=== PATIENT | female | born 1980 | race Caucasian/White ===

== ENCOUNTER 2017-04-01 23:05 | Inpatient (IN) | payer OTHER ==
[2017-04-02] MEDS ORDERED: KETOROLAC TROMETHAMINE 30 MG/1 ML VIAL IVPUSH ONE (00:17)
--- NOTE | 2017-04-02 00:19 | PDOC ---
History of Present Illness <Nancy Rutledge - Last Filed: 04/02/17 06:47> - History of Present Illness Initial Comments: 04/02/17 00:20 The patient is a 36 year old female with past medical history of hypertension who presents to the ED with complaints of nausea, vomiting, and body aches that began yesterday evening. The patient states that she has been unable to hold down any solids or liquids and has thrown up her blood pressure medicines for the past two days. Additionally, she states that her general body aches have prevented her from sleeping all last night and today as well. She reports a subjective fever, productive cough, and reports taking some tylenol for the pain. She denies any diarrhea, SOB, CP, or urinary symptoms. Pt has sick contacts at home, including her mother and daughter. Pt notes that her BP is high today because she was unable to keep her pills down. She takes lasix 20mg, amlodipine 10mg, labetalol 600 mg, spironolactone 50mg, and doxazosin 8mg. Her baseline BP is 170/100 <Edward Gomez - Last Filed: 04/04/17 08:27> - General Chief Complaint: Nausea/Vomiting Stated Complaint: COLD SYMPTOMS Time Seen by Provider: 04/01/17 23:18 Past History <Nancy Rutledge - Last Filed: 04/02/17 06:47> - Suicide/Smoking/Psychosocial Hx Smoking History: Former smoker Have you smoked in the past 12 months: Yes If you are a former smoker, when did you quit?: january Information on smoking cessation initiated: No Hx Alcohol Use: No Drug/Substance Use Hx: No <Edward Gomez - Last Filed: 04/04/17 08:27> - Past Medical History Allergies/Adverse Reactions: Allergies Allergy/AdvReac Type Severity Reaction Status Date / Time No Known Allergies Allergy Verified 04/01/17 23:47 Home Medications: Ambulatory Orders Amlodipine Besylate 10 mg PO DAILY 04/01/17 Furosemide 20 mg PO DAILY 04/01/17 Labetalol HCl [Normodyne -] 600 mg PO BID 04/01/17 Spironolactone 50 mg PO DAILY 04/01/17 Clonidine Patch [Catapres Tts Patch -] 0.3 mg TD WEEKLY 04/02/17 Doxazosin Mesylate 8 mg PO DAILY 04/02/17 Minoxidil [Lonitin -] 2.5 mg PO DAILY 04/02/17 Review of Systems - Review of Systems Comments:: 04/02/17 00:21 "GENERAL/CONSTITUTIONAL: Present: fever No chills. No weakness. HEAD, EYES, EARS, NOSE AND THROAT: No change in vision. No ear pain or discharge. No sore throat. CARDIOVASCULAR: No chest pain or shortness of breath. RESPIRATORY: Present: cough No wheezing, or hemoptysis. GASTROINTESTINAL: Present: Nausea, vomiting No diarrhea or constipation. GENITOURINARY: No dysuria, frequency, or change in urination. MUSCULOSKELETAL: Present: body aches No neck or back pain. SKIN: No rash NEUROLOGIC: No headache, vertigo, loss of consciousness, or change in strength/ sensation. ENDOCRINE: No increased thirst. No abnormal weight change. HEMATOLOGIC/LYMPHATIC: No anemia, easy bleeding, or history of blood clots. ALLERGIC/IMMUNOLOGIC: No hives or skin allergy. " <Edward Gomez - Last Filed: 04/04/17 08:27> *Physical Exam - Vital Signs Last Vital Signs Temp Pulse Resp BP Pulse Ox 99.2 F 76 19 184/116 98 04/01/17 23:44 04/02/17 03:29 04/02/17 03:29 04/02/17 03:29 04/01/17 23:44 <Nancy Rutledge - Last Filed: 04/02/17 06:47> - Vital Signs Last Vital Signs Temp Pulse Resp BP Pulse Ox 99.2 F 76 H 240/150 98 04/01/17 23:44 04/01/17 23:44 04/01/17 23:44 04/01/17 23:44 - Physical Exam Comments: 04/02/17 00:21 "GENERAL: Awake, alert, and fully oriented, in no acute distress HEAD: No signs of trauma EYES: PERRLA, EOMI, sclera anicteric, conjunctiva clear ENT: Auricles normal inspection, hearing grossly normal, nares patent, oropharynx clear without exudates. Moist mucosa NECK: Nontender, no stepoffs, Normal ROM, supple, no lymphadenopathy, JVD, or masses LUNGS: Breath sounds equal, clear to auscultation bilaterally. No wheezes, and no crackles HEART: Regular rate and rhythm, normal S1 and S2, no murmurs, rubs or gallops ABDOMEN: +epigastric and RUQ tenderness, no lower abdominal tenderness, no rebound/guarding EXTREMITIES: Normal range of motion, no edema. No clubbing or cyanosis. No cords, erythema, or tenderness NEUROLOGICAL: Cranial nerves II through XII intact. 5/5 strength and sensation in all extremities, Normal speech, normal gait SKIN: Warm, Dry, normal turgor, no rashes or lesions noted. " <Ou,Edward - Last Filed: 04/04/17 08:27> Heart Score/ECG Review - ECG Impressions Comment:: 04/02/17 01:37 NSR, no JONNATHAN/STDs, TWI in V4-V6, axis wnl, intervals wnl <Ou,Edward - Last Filed: 04/04/17 08:27> ED Treatment Course - LABORATORY CBC & Chemistry Diagram: 04/02/17 00:00 04/02/17 03:00 - ADDITIONAL ORDERS Additional order review: Laboratory Results 04/02/17 04/02/17 04/02/17 03:00 00:12 00:00 PT with INR INR PTT (Actin FS) Sodium 141 Potassium 2.7 L* Chloride 105 Carbon Dioxide 27 Anion Gap 9 BUN 27 H Creatinine 4.1 H Creat Clearance w eGFR 12.18 Random Glucose 100 Calcium 8.6 Total Bilirubin 0.5 AST 21 ALT 30 Alkaline Phosphatase 51 Creatine Kinase Cancelled Troponin I Cancelled B-Natriuretic Peptide Cancelled Total Protein 6.0 L Albumin 3.2 L Lipase 125 Urine Color Urine Appearance Urine pH Ur Specific [place] Urine Protein Urine Glucose (UA) Urine Ketones Urine Blood Urine Nitrite Urine Bilirubin Urine Urobilinogen Urine WBC (Auto) Urine RBC (Auto) Ur Epithelial Cells Urine Bacteria Urine Mucus Urine HCG, Qual Negative 04/02/17 04/02/17 04/02/17 00:00 00:00 00:00 PT with INR Cancelled INR Cancelled PTT (Actin FS) Cancelled Sodium Cancelled Potassium Cancelled Chloride Cancelled Carbon Dioxide Cancelled Anion Gap Cancelled BUN Cancelled Creatinine Cancelled Creat Clearance w eGFR Cancelled Random Glucose Cancelled Calcium Cancelled Total Bilirubin Cancelled AST Cancelled ALT Cancelled Alkaline Phosphatase Cancelled Creatine Kinase Troponin I B-Natriuretic Peptide Total Protein Cancelled Albumin Cancelled Lipase Urine Color Ltyellow Urine Appearance Cloudy Urine pH 5.0 Ur Specific [place] 1.012 Urine Protein 2+ H Urine Glucose (UA) Negative Urine Ketones Negative Urine Blood Negative Urine Nitrite Negative Urine Bilirubin Negative Urine Urobilinogen Negative Urine WBC (Auto) 209 Urine RBC (Auto) 22 Ur Epithelial Cells Many Urine Bacteria Rare Urine Mucus Rare Urine HCG, Qual 04/02/17 03:14 Influenza Types A,B Antigen (EFREN) - Preliminary Nasopharyngeal Swab - Preliminary 04/02/17 00:00 RBC 3.01 L MCV 85.5 MCHC 33.5 RDW 16.3 H MPV 8.9 Neutrophils % 82.8 Lymphocytes % 11.1 Monocytes % 3.1 L Eosinophils % 2.6 Basophils % 0.4 - Medications Given in the ED: ED Medications Discontinued Medications Generic Name Dose Route Start Last Admin Trade Name Freq PRN Reason Stop Dose Admin Acetaminophen 1,000 mg 04/02/17 02:03 04/02/17 02:24 Ofirmev Injection - IVPB 04/02/17 02:04 1,000 mg ONCE ONE Administration Amlodipine Besylate 10 mg 04/02/17 01:33 04/02/17 02:24 Norvasc - PO 04/02/17 01:34 10 mg ONCE ONE Administration Doxazosin Mesylate 8 mg 04/02/17 01:34 04/02/17 03:13 Cardura - PO 04/02/17 01:35 8 mg ONCE ONE Administration Ketorolac Tromethamine 15 mg 04/02/17 00:17 04/02/17 00:31 Toradol Injection - IVPUSH 04/02/17 00:18 15 mg ONCE ONE Administration Labetalol HCl 600 mg 04/02/17 01:33 04/02/17 02:24 Normodyne - PO 04/02/17 01:34 600 mg ONCE ONE Administration Levofloxacin 750 mg 04/02/17 01:55 04/02/17 02:24 Levaquin - PO 04/02/17 01:56 750 mg ONCE ONE Administration Morphine Sulfate 2 mg 04/02/17 02:39 04/02/17 03:13 Morphine Injection - IVPUSH 04/02/17 02:40 2 mg ONCE ONE Administration Nitroglycerin 0.4 mg 04/02/17 02:30 04/02/17 02:30 Nitrostat - SL 04/02/17 02:31 0.4 mg NOW ONE Administration Nitroglycerin 0.4 mg 04/02/17 02:39 04/02/17 02:50 Nitrostat - SL 04/02/17 02:40 0.4 mg ONCE ONE Administration Ondansetron HCl 4 mg 04/02/17 00:24 04/02/17 00:32 Zofran Injection IVPB 04/02/17 00:25 4 mg ONCE ONE Administration <Nancy Rutledge - Last Filed: 04/02/17 06:47> - LABORATORY CBC & Chemistry Diagram: 04/04/17 06:00 04/04/17 06:00 - RADIOLOGY Radiology Studies Ordered: Category Date Time Status CHEST PA & LAT [RAD] Stat Radiology 04/01/17 23:42 Ordered ABDOMEN US -LIMITED [US] Stat Ultrasound 04/01/17 23:43 Ordered <Edward Gomez - Last Filed: 04/04/17 08:27> Medical Decision Making - Critical Care Time Total Critical Care Time (minutes): 60 Critical Care Statement: The care of this patient involved high complexity decision making to prevent further life threatening deterioration of the patient 's condition and/or to evaluate & treat vital organ system(s) failure or risk of failure. - Medical Decision Making 04/02/17 03:52 Pt was signed out to me at 2:30AM Pt arrives with hypertensive emergency; pt earlier received oral antiHTN I treated with SLNTG, then ofirmev for subjective fever. BP cane down to 150s/100s CXR demonstrates large cardiomegaly/waterbottle heart. Pt placed on nasal cannula. EKG sinus tachy with LVH/ lateral strain pattern Pt was given another SLNTG. She was also given morphine for her body aches. BP 166/113 Positive troponin and BNP of 64,000+ ASA and percocet ordered. Heparin drip cancelled after discussion with admitting hospitalist. Nitroprusside drip ordered, in order to control BP more effectively; Pt is renal failure Creatinine 4.1/ Pt tells me her normal creatinine is 2.4; despite this I ordered lasix IV 40mg, in an effort to help reduce preload. Pt is producing urine. ICU nurse practitioner and the hospitalist are aware of the patient 04/02/17 06:[address] result pending, but no pathology seen by myself. 04/02/17 06:10 Pt's BP remains elevated, drip was increased to 24mcg/min. Also potassium runs IV were never given, so I cancelled it, as pt is in renal failure and elevated potassium will be her problem. I did however order 40mEQ PO 04/02/17 06:48 Pt went to ICU <Nancy Rutledge - Last Filed: 04/02/17 06:47> - Medical Decision Making 04/02/17 00:22 36 F with N/V and body aches. Likely viral syndrome. However, given RUQ tenderness and vomiting, will obtain US to r/o darell. Pt found to be hypertensive in ER, likely due to med non-compliance in setting of vomiting. Will r/o hypertensive emergency with labwork and EKG. - Labs, trop, BNP - UA, UPT - EKG - CXR - RUQ sono - Zofran, toradol 04/02/17 01:54 UA consistent with UTI. Labs otherwise still pending. Pt given levaquin. Prescription send to pharmacy. Pt signed out to night attending, pending labwork, abdominal US, CXR, and re- evaluation. Case discussed in detail with oncoming Emergency Physician including history, physical exam and ancillary studies. Oncoming Emergency Physician has assumed care for the patient and will complete the evaluation and treatment. Patient is aware of the plan. <Edward Gomez - Last Filed: 04/04/17 08:27> *DC/Admit/Observation/Transfer - Discharge Dispostion Admit: Yes <Nancy Rutledge - Last Filed: 04/02/17 06:47> <Edward Gomez - Last Filed: 04/04/17 08:27> Diagnosis at time of Disposition: Nausea & vomiting, Hypokalemia, Acute renal failure, Hypertensive cardiomyopathy, Hypertensive emergency, Hypoaldosteronism, Heart failure, Myocardial infarction, Anemia, Headache - Discharge Dispostion Condition at time of disposition: Poor
[2017-04-02 00:23] LABS: URINE APPEARANCE CLOUDY; URINE BILIRUBIN NEGATIVE (NEGATIVE); URINE BLOOD NEGATIVE (NEGATIVE); URINE COLOR LTYELLOW; URINE GLUCOSE (UA) NEGATIVE (NEGATIVE); URINE KETONE NEGATIVE (NEGATIVE); URINE NITRITE NEGATIVE (NEGATIVE); URINE UROBILINOGEN NEGATIVE mg/dL (0.2-1.0)
[2017-04-02 00:24] LABS: BASO % 0.4 % (0-2.0); EOS % 2.6 % (0-4.5); MCH 28.6 pg (25.7-33.7); MCHC 33.5 g/dl (32.0-36.0); MEAN CELL VOLUME 85.5 fl (80-96); MEAN PLT VOLUME 8.9 fl (7.5-11.1); NEUT % 82.8 % (42.8-82.8); PLATELET COUNT 171 K/MM3 (134-434); RDW 16.3 % (11.6-15.6); WHITE BLOOD COUNT 9.8 K/mm3 (4.0-10.0)
[2017-04-02] MEDS ORDERED: ONDANSETRON 4 MG/2 ML VIAL IVPB ONE (00:24)
[2017-04-02 00:25] LABS: URINE LEUK ESTERASE 3+ (NEGATIVE); URINE PROTEIN 2+ (NEGATIVE)
[2017-04-02] MEDS ORDERED: ONDANSETRON 4 MG/2 ML VIAL ONE (00:26)
[2017-04-02] MEDS ORDERED: KETOROLAC TROMETHAMINE 15 MG/ML VIAL ONE (00:26)
[2017-04-02 00:41] LABS: URINE BACTERIA RARE /hpf (NONE SEEN); URINE MUCUS RARE; URINE RBC 22 /hpf (0-3); URINE WBC 209 /hpf (3-5)
[2017-04-02] MEDS ORDERED: amLODIPine BESYLATE 10 MG TABLET (FP) PO ONE (01:33)
[2017-04-02] MEDS ORDERED: LABETALOL HCL 100 MG TABLET (FP) PO ONE (01:33)
[2017-04-02] MEDS ORDERED: DOXAZOSIN MESYLATE 8 MG TABLET PO ONE (01:34)
[2017-04-02] MEDS ORDERED: LEVOFLOXACIN 250 MG TABLET (FP) PO ONE (01:55)
[2017-04-02] MEDS ORDERED: ACETAMINOPHEN 1000 MG/100 ML VIAL (NON FORMULARY) IVPB ONE (02:03)
[2017-04-02] MEDS ORDERED: amLODIPine BESYLATE 5 MG TABLET (FP) ONE (02:09)
[2017-04-02] MEDS ORDERED: LEVOFLOXACIN 250 MG TABLET (FP) ONE (02:09)
[2017-04-02] MEDS ORDERED: LEVOFLOXACIN 500 MG TABLET (FP) ONE (02:09)
[2017-04-02] MEDS ORDERED: ACETAMINOPHEN INJECTION 100 ML IVPB ONE (02:10)
[2017-04-02] MEDS ORDERED: LABETALOL HCL 100 MG TABLET (FP) ONE (02:10)
[2017-04-02] MEDS ORDERED: NITROGLYCERIN SUBLINGUAL 1/150 0.4 MG TAB SL ONE ×2 (02:30→02:39)
[2017-04-02] MEDS ORDERED: morphine CARPU-JECT 2 MG/1 ML DISP.SYRIN IVPUSH ONE (02:39)
[2017-04-02] MEDS ORDERED: morphine SULFATE 4 MG/ML VIAL ONE ×2 (03:03→07:46)
[2017-04-02 03:40] LABS: ALBUMIN 3.2 g/dl (3.4-5.0); ALK PHOS 51 U/L (45-117); ANION GAP 9 (8-16); BILIRUBIN,TOTAL 0.5 mg/dL (0.2-1.0); CALCIUM 8.6 mg/dL (8.5-10.1); CO2 27 mmol/L (21-32); CREATININE 4.1 mg/dL (0.55-1.02); GLUCOSE,RANDOM 100 mg/dL (74-106); SGOT/AST 21 U/L (15-37); SGPT/ALT 30 U/L (12-78)
[2017-04-02] MEDS ORDERED: MAGNESIUM SULF 50% (8.12 MEQ/2 ML-1 GM VIAL) IVPB ONE (03:47)
[2017-04-02] MEDS ORDERED: MAGNESIUM SULF 50% (8.12 MEQ/2 ML-1 GM VIAL) ONE (03:51)
[2017-04-02 03:53] LABS: TROPONIN I 0.29 ng/ml (0.00-0.05)
[2017-04-02] MEDS ORDERED: CLOPIDOGREL BISULFATE 300 MG TABLET PO ONE (04:04)
[2017-04-02] MEDS ORDERED: ASPIRIN 81 MG CHEWABLE TABLETS PO ONE (04:04)
[2017-04-02] MEDS ORDERED: HEPARIN NA (PORCINE) 5,000 UNITS/ML 1ML VIAL IVPUSH PRN (04:05)
[2017-04-02] MEDS ORDERED: ASPIRIN 81 MG CHEWABLE TABLETS ONE ×2 (04:06→04:08)
[2017-04-02] MEDS ORDERED: CLOPIDOGREL BISULFATE 300 MG TABLET ONE (04:07)
[2017-04-02] MEDS ORDERED: HEPARIN INFUSION - 25,000 UNITS/500 ML INFUS.BAG IVPB SCH (04:15)
[2017-04-02] MEDS ORDERED: FUROSEMIDE 40 MG/4 ML INJECTABLE VIAL IVPUSH ONE ×2 (04:15→09:15)
[2017-04-02] MEDS ORDERED: NITROPRUSSIDE SODIUM 25 MG/1 ML ML IVPB ONE (04:31)
[2017-04-02] MEDS ORDERED: FUROSEMIDE 40 MG/4 ML INJECTABLE VIAL ONE (04:35)
[2017-04-02] MEDS: NITROPRUSSIDE SODIUM 50,000 MCG in SODIUM CHLORIDE 248 ML IVPB SCH (05:36)
--- NOTE | 2017-04-02 05:38 | HP ---
CHIEF COMPLAINT: Headache Product Demonstrator: Dr. Fegn HTN Specialist: Dr. 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 Patient describes chest pain as a constant substernal nonradiating pain that feels "cramp." Patient also endorses bilateral blurry vision that also started last week. Patient has been unable to tolerate her BP medications due to her vomiting, which she states brought her BP high. Patient reports her BP is usually stable at 160's/100's. Patient also reports a prodcutve cough with clear phlegm and body aches that started the same time as the headaches. She does admit to being around sick contacts including her mother and daughter. Otherwise, patient denies abdominal pain, dysuria, hematuria, frequency. Patient reports she follows up with an Product Demonstrator who is monitoring her Conn's syndrome. Patient states having full work up done. ER course was notable for: (1) Nitroglycerin given (2) Chest X-ray showing cardiomegaly (3) Elevated trops Recent Travel: Denies PAST MEDICAL HISTORY: HTN (difficult to control), Conn's Syndrome ( hyperaldosteronism) PAST SURGICAL HISTORY: 3 C-sections and partial hysterectomy Social History: Smoking:Former smoker. quit three months ago Alcohol: Denies Drugs: Denies Family History: No family hx Allergies No Known Allergies Allergy (Verified 04/01/17 23:47) HOME MEDICATIONS: Home Medications Medication Instructions Recorded Amlodipine Besylate 10 mg PO DAILY 04/01/17 Furosemide 20 mg PO DAILY 04/01/17 Labetalol HCl [Normodyne -] 600 mg PO DAILY 04/01/17 Spironolactone 50 mg PO DAILY 04/01/17 Clonidine Patch [Catapres Tts 0.3 mg TD ONCE 04/02/17 Patch -] Doxazosin Mesylate 8 mg PO DAILY 04/02/17 Levofloxacin [Levaquin] 750 mg PO DAILY #5 tab 04/02/17 REVIEW OF SYSTEMS CONSTITUTIONAL: Absent: fever, chills, diaphoresis, generalized weakness, malaise, loss of appetite, weight change HEENT: Absent: rhinorrhea, nasal congestion, throat pain, throat swelling, difficulty swallowing, mouth swelling, ear pain, eye pain, visual changes CARDIOVASCULAR: chest pain Absent: syncope, palpitations, irregular heart rate, lightheadedness, peripheral edema RESPIRATORY: Absent: cough, shortness of breath, dyspnea with exertion, orthopnea, wheezing, stridor, hemoptysis GASTROINTESTINAL: Absent: abdominal pain, abdominal distension, nausea, vomiting, diarrhea, constipation, melena, hematochezia GENITOURINARY: Absent: dysuria, frequency, urgency, hesitancy, hematuria, flank pain, genital pain MUSCULOSKELETAL: Absent: myalgia, arthralgia, joint swelling, back pain, neck pain SKIN: Absent: rash, itching, pallor HEMATOLOGIC/IMMUNOLOGIC: Absent: easy bleeding, easy bruising, lymphadenopathy, frequent infections ENDOCRINE: Absent: unexplained weight gain, unexplained weight loss, heat intolerance, cold intolerance NEUROLOGIC: headache, Blurry vision Absent: focal weakness or paresthesias, dizziness, unsteady gait, seizure, mental status changes, bladder or bowel incontinence PSYCHIATRIC: Absent: anxiety, depression, suicidal or homicidal ideation, hallucinations. PHYSICAL EXAMINATION Vital Signs - 24 hr 04/01/17 04/02/17 23:44 03:29 Temperature 99.2 F Pulse Rate [ 76 Left Radial] Respiratory 76 H 19 Rate Blood Pressure 240/150 Blood Pressure 184/116 [Right Arm] O2 Sat by Pulse 98 Oximetry (%) GENERAL: Awake, alert, and fully oriented, in no acute distress. HEAD: Normal with no signs of trauma. EYES: Bilateral edema of the eyes, Pupils equal, round and reactive to light, extraocular movements intact, sclera anicteric, conjunctiva clear. No lid lag. EARS, NOSE, THROAT: Right ear lobe keloid. Oropharynx clear without exudates. Moist mucous membranes. NECK: Normal range of motion, supple without lymphadenopathy, JVD, or masses. LUNGS: Breath sounds equal, clear to auscultation bilaterally. No wheezes, and no crackles. No accessory muscle use. HEART: Regular rate and rhythm, normal S1 and S2 without murmur, rub or gallop. ABDOMEN: Soft, nontender, not distended, normoactive bowel sounds, no guarding, no rebound, no masses. MUSCULOSKELETAL: Normal range of motion at all joints. No bony deformities or tenderness. No CVA tenderness. UPPER EXTREMITIES: 2+ pulses, warm, well-perfused. No cyanosis. No clubbing. No peripheral edema. LOWER EXTREMITIES: 2+ pulses, warm, well-perfused. No calf tenderness. No peripheral edema. NEUROLOGICAL: Cranial nerves II-XII intact. Normal speech. No facial droop. PSYCHIATRIC: Cooperative. Good eye contact. Appropriate mood and affect. SKIN: Warm, dry, normal turgor, no rashes or lesions noted, normal capillary refill. Laboratory Results - last 24 hr 04/02/17 04/02/17 04/02/17 00:00 00:00 00:00 WBC 9.8 RBC 3.01 L Hgb 8.6 L Hct 25.7 L MCV 85.5 MCH 28.6 MCHC 33.5 RDW 16.3 H Plt Count 171 MPV 8.9 Neutrophils % 82.8 Lymphocytes % 11.1 Monocytes % 3.1 L Eosinophils % 2.6 Basophils % 0.4 PT with INR Cancelled INR Cancelled PTT (Actin FS) Cancelled Sodium Potassium Chloride Carbon Dioxide Anion Gap BUN Creatinine Creat Clearance w eGFR Random Glucose Calcium Total Bilirubin AST ALT Alkaline Phosphatase Creatine Kinase Creatine Kinase Index CK-MB (CK-2) Troponin I B-Natriuretic Peptide Total Protein Albumin Lipase Urine Color Ltyellow Urine Appearance Cloudy Urine pH 5.0 Ur Specific [place] 1.012 Urine Protein 2+ H Urine Glucose (UA) Negative Urine Ketones Negative Urine Blood Negative Urine Nitrite Negative Urine Bilirubin Negative Urine Urobilinogen Negative Urine WBC (Auto) 209 Urine RBC (Auto) 22 Ur Epithelial Cells Many Urine Bacteria Rare Urine Mucus Rare Urine HCG, Qual 04/02/17 04/02/17 04/02/17 00:00 00:00 00:12 WBC RBC Hgb Hct MCV MCH MCHC RDW Plt Count MPV Neutrophils % Lymphocytes % Monocytes % Eosinophils % Basophils % PT with INR INR PTT (Actin FS) Sodium Cancelled Potassium Cancelled Chloride Cancelled Carbon Dioxide Cancelled Anion Gap Cancelled BUN Cancelled Creatinine Cancelled Creat Clearance w eGFR Cancelled Random Glucose Cancelled Calcium Cancelled Total Bilirubin Cancelled AST Cancelled ALT Cancelled Alkaline Phosphatase Cancelled Creatine Kinase Cancelled Creatine Kinase Index CK-MB (CK-2) Troponin I Cancelled B-Natriuretic Peptide Cancelled Total Protein Cancelled Albumin Cancelled Lipase Urine Color Urine Appearance Urine pH Ur Specific [place] Urine Protein Urine Glucose (UA) Urine Ketones Urine Blood Urine Nitrite Urine Bilirubin Urine Urobilinogen Urine WBC (Auto) Urine RBC (Auto) Ur Epithelial Cells Urine Bacteria Urine Mucus Urine HCG, Qual Negative 04/02/17 04/02/17 03:00 03:00 WBC RBC Hgb Hct MCV MCH MCHC RDW Plt Count MPV Neutrophils % Lymphocytes % Monocytes % Eosinophils % Basophils % PT with INR INR PTT (Actin FS) Sodium 141 Potassium 2.7 L* Chloride 105 Carbon Dioxide 27 Anion Gap 9 BUN 27 H Creatinine 4.1 H Creat Clearance w eGFR 12.18 Random Glucose 100 Calcium 8.6 Total Bilirubin 0.5 AST 21 ALT 30 Alkaline Phosphatase 51 Creatine Kinase 197 H Creatine Kinase Index 0.6 CK-MB (CK-2) 1.224 Troponin I 0.29 H B-Natriuretic Peptide 68669.06 H Total Protein 6.0 L Albumin 3.2 L Lipase 125 Urine Color Urine Appearance Urine pH Ur Specific [place] Urine Protein Urine Glucose (UA) Urine Ketones Urine Blood Urine Nitrite Urine Bilirubin Urine Urobilinogen Urine WBC (Auto) Urine RBC (Auto) Ur Epithelial Cells Urine Bacteria Urine Mucus Urine HCG, Qual ASSESSMENT/PLAN: Patient is a 36 year old female who presented for a headache, chest pain and neck pain. Patient found to have HTN emergency and admitted for further monitoring and management. HTN Emergency -Has signs of end organ damage with MADISON and elevated troponins -Nitroprusside drip started -Patient given PO anti-htn medications in ED -Head CT ordered to rule out any bleeds -Chest CT to rule out pericardial effusions -ECHO ordered -Continue frequent BP checks -Will need to call security rep for further results. Patient reports extensive work up done MADISON on CKD -Likely secondary to HTN -Patient reports being at 2.0 -Renal ultrasound ordered -Urine electrolytes ordered -Continue to monitor BMP Elevated Troponins -Likely secondary to demand Ischemia -First trop 0.26. Second one ordered -Patient in ED giveb ASA, Plavix. However will need to rule out intracranial hemorrhage -Cardiology consult ordered Conn's Syndrome -Follows up with security rep and has had extensive workup -Reports having adrenal tumors -Continue to monitor BMP -Will need to confirm medications F/E/N -On no fluids -Hypokalemia. Will replete and repeat -Sodium controlled diet Prophylaxis -Moderate risk. Ambulates. Heparin 5000 units sq -No GI required Disposition -Full code -Will need to be monitored in ICU Visit type - Emergency Visit Emergency Visit: Yes ED Registration Date: 04/02/17 Care time: The patient presented to the Emergency Department on the above date and was hospitalized for further evaluation of their emergent condition. - New Patient This patient is new to me today: Yes Date on this admission: 04/02/17 - Critical Care Critical Care patient: Yes Total Critical Care Time (in minutes): 45 Critical Care Statement: The care of this patient involved high complexity decision making to prevent further life threatening deterioration of the patient 's condition and/or to evaluate & treat vital organ system(s) failure or risk of failure.
--- NOTE | 2017-04-02 05:46 | PN ---
Teaching Attending Note Name of Resident: Blossom Bruner ATTENDING PHYSICIAN STATEMENT I saw and evaluated the patient. Chart, data, imaging reviewed. I reviewed the resident's note and discussed the case with the resident. I agree with the resident's findings and plan as documented. SUBJECTIVE: 36 year old female with pmhx of hyperaldosteronism with severe hypertension, CKD with reported adrenal gland tumor comes to ER c/o chest discomfort, nausea, vomiting, headache x 2 day. She follows with hypertensive specialist and channel man in the [employer]. SHe takes multiple medications for hypertension including doxazosin, amlodipine, labetolol, spironolactone. Patient was not able to effectively take her antihypertensive meds because of her vomiting. Patient received PO labetolol, amlodipine, and doxazosin in ER. She denied any focal weakness or sensations problems. OBJECTIVE: Last Vital Signs Temp Pulse Resp BP Pulse Ox 99.2 F 76 19 184/116 98 04/01/17 23:44 04/02/17 03:29 04/02/17 03:29 04/02/17 03:29 04/01/17 23:44 general- nad, aaox3, appears comfortable heent- at, nc, moist oral mucosa neck -supple cv-s1+s2+ RRR CHest- cta b/l abdomen- soft, nontender, BS+, no masses ext -no pedal edema skin- no rashes appreciated Abnormal Lab Results 04/02/17 04/02/17 04/02/17 00:00 00:00 03:00 RBC 3.01 L Hgb 8.6 L Hct 25.7 L RDW 16.3 H Monocytes % 3.1 L Potassium BUN Creatinine Creatine Kinase 197 H Troponin I 0.29 H B-Natriuretic Peptide 63076.06 H Total Protein Albumin Urine Protein 2+ H 04/02/17 03:00 RBC Hgb Hct RDW Monocytes % Potassium 2.7 L* BUN 27 H Creatinine 4.1 H Creatine Kinase Troponin I B-Natriuretic Peptide Total Protein 6.0 L Albumin 3.2 L Urine Protein EKG- NSR, no ST elevations or depressions, some t wave inversions CXR- cardiomegally+ ASSESSMENT AND PLAN: #Hypertensive emergency with signs of end organ damage. MADISON on CKD. SHould r/o intracranial bleed with head CT. Elevated troponin likely a leak from CHF 2/2 to extreme HTN. Should consider possible ACS. High BNP. -admit to ICU -nitroprusside drip and titrate according to frequent BP checks -Head CT to r/o acute bleed or infarct -Chest CT to evalaute cardiomegally and r/o pericardial effusion -25% BP reduction in 6hrs -vale catheter -accurate I/O -daily weights -2g Na diet -trend troponin -call patient's channel man and HTN specialist to obtain medical records #MADISON -likely 2/2 extreme HTN -avoid nephrotoxic drugs -renal U/S #Elevated troponin -trend troponin -if no intracranial hemorrhage, order ASA, Plavix, consider anticoagulation -transthoracic echo -cardiology evaluation Diet- low Na diet SCDs for dt ppx
[2017-04-02] MEDS ORDERED: POTASSIUM CHLORIDE TABS 20 MEQ TABLET.ER (FP) PO ONE ×3 (06:13→10:30)
[2017-04-02] MEDS: KCL 10 MEQ IVPB 10 MEQ/100 ML INFUS.BAG IVPB SCH ×3 (06:19→22:18)
[2017-04-02 07:15] VITALS: BMI 23.9
--- NOTE | 2017-04-02 09:04 | PN ---
Progress Note (short form) - Note Progress Note: Subjective: cont to have frontal and occipital BOYER , but improved, contto have chest pressure , but improved . SOB improved . has no fever ro chills, denies dysuria at home , reports productive cough of green sputum , x 2 days . NO ABd pain . no diarrhea . reports not taking her BP meds in past 2 days due to N/ V . Objective: Vital Signs: Last Vital Signs Temp Pulse Resp BP Pulse Ox 98.2 F 83 20 183/120 96 04/02/17 06:35 04/02/17 06:35 04/02/17 06:35 04/02/17 06:35 04/02/17 06:05 I&O: Intake & Output 03/30/17 03/31/17 04/01/17 04/02/17 23:59 23:59 23:59 23:59 Weight 168 lb 176 lb 5.917 oz Laboratory Results - last 24 hr 04/02/17 04/02/17 04/02/17 00:00 00:00 00:00 WBC 9.8 RBC 3.01 L Hgb 8.6 L Hct 25.7 L MCV 85.5 MCH 28.6 MCHC 33.5 RDW 16.3 H Plt Count 171 MPV 8.9 Neutrophils % 82.8 Lymphocytes % 11.1 Monocytes % 3.1 L Eosinophils % 2.6 Basophils % 0.4 PT with INR Cancelled INR Cancelled PTT (Actin FS) Cancelled Sodium Potassium Chloride Carbon Dioxide Anion Gap BUN Creatinine Creat Clearance w eGFR Random Glucose Calcium Total Bilirubin AST ALT Alkaline Phosphatase Creatine Kinase Creatine Kinase Index CK-MB (CK-2) Troponin I B-Natriuretic Peptide Total Protein Albumin Lipase Urine Color Ltyellow Urine Appearance Cloudy Urine pH 5.0 Ur Specific [place] 1.012 Urine Protein 2+ H Urine Glucose (UA) Negative Urine Ketones Negative Urine Blood Negative Urine Nitrite Negative Urine Bilirubin Negative Urine Urobilinogen Negative Urine WBC (Auto) 209 Urine RBC (Auto) 22 Ur Epithelial Cells Many Urine Bacteria Rare Urine Mucus Rare Urine HCG, Qual 04/02/17 04/02/17 04/02/17 00:00 00:00 00:12 WBC RBC Hgb Hct MCV MCH MCHC RDW Plt Count MPV Neutrophils % Lymphocytes % Monocytes % Eosinophils % Basophils % PT with INR INR PTT (Actin FS) Sodium Cancelled Potassium Cancelled Chloride Cancelled Carbon Dioxide Cancelled Anion Gap Cancelled BUN Cancelled Creatinine Cancelled Creat Clearance w eGFR Cancelled Random Glucose Cancelled Calcium Cancelled Total Bilirubin Cancelled AST Cancelled ALT Cancelled Alkaline Phosphatase Cancelled Creatine Kinase Cancelled Creatine Kinase Index CK-MB (CK-2) Troponin I Cancelled B-Natriuretic Peptide Cancelled Total Protein Cancelled Albumin Cancelled Lipase Urine Color Urine Appearance Urine pH Ur Specific [place] Urine Protein Urine Glucose (UA) Urine Ketones Urine Blood Urine Nitrite Urine Bilirubin Urine Urobilinogen Urine WBC (Auto) Urine RBC (Auto) Ur Epithelial Cells Urine Bacteria Urine Mucus Urine HCG, Qual Negative 04/02/17 04/02/17 03:00 03:00 WBC RBC Hgb Hct MCV MCH MCHC RDW Plt Count MPV Neutrophils % Lymphocytes % Monocytes % Eosinophils % Basophils % PT with INR INR PTT (Actin FS) Sodium 141 Potassium 2.7 L* Chloride 105 Carbon Dioxide 27 Anion Gap 9 BUN 27 H Creatinine 4.1 H Creat Clearance w eGFR 12.18 Random Glucose 100 Calcium 8.6 Total Bilirubin 0.5 AST 21 ALT 30 Alkaline Phosphatase 51 Creatine Kinase 197 H Creatine Kinase Index 0.6 CK-MB (CK-2) 1.224 Troponin I 0.29 H B-Natriuretic Peptide 42246.06 H Total Protein 6.0 L Albumin 3.2 L Lipase 125 Urine Color Urine Appearance Urine pH Ur Specific [place] Urine Protein Urine Glucose (UA) Urine Ketones Urine Blood Urine Nitrite Urine Bilirubin Urine Urobilinogen Urine WBC (Auto) Urine RBC (Auto) Ur Epithelial Cells Urine Bacteria Urine Mucus Urine HCG, Qual Physical Exam: NAD , AAOx3 HEENT: MMM, no facial droop, EOMI, round equal reactive pupils . CV: RRR, 3/6 Sm all over precardium , but heard best over RUSB . minimal JVD Lungs bibasilar crackles L > R Abd: soft, ND, TTP in RLQ , with no rebound tenderness or guarding Ext: trace edema . DP 2+ b/l , PT 2+ Neuro : no facial droop, EOMI, round equal reactive pupils, tongue at mid line , nl facial sensatio . strength 5/5 in upper and lwoer ext , proxuimally and distally. sensatio to light touch NL. reflexes1+ knee jerk and biceps b/l Imaging: CT chest image reviewed, report pending . cxray reviewed. head CT prelim read with no ICH Assessment/Plan: unfortunate 36 y/o lady with h/o hyperaldosteronism, uncontrolled HTN , CKD , , who presented with N/V, BOYER, and chest pain, and was found to have hypertensive emergency 1- HTN emergency: due ot not being able to take her meds in setting of N/V now on NItroprosside gtt, BP in 148/100 . She normally has SBP in 160s at her base lline we have to be careful and not to decrease her brain perfusion. - start her oral home meds ( minoxidil, norvasc, labetalol, doxazosin, spironolactone and lasix). - cont clonidine patch, due to change in am - taper nitroprosside gtt to off - No ICH on prelim CT of head 2- MADISON on CKD: her base line Cr is 2.3 in september per her . MADISON is likely due to severe HTN and possibly also decreased [employer] from heart failure - received lasix , early this am . has protein uria - repeat Cr is pending - check urine electrolytes - obtain renal US . - dc akanksha 3- Acute flash pulmonary edema , from severe HTN. - received 40 of iV lasix at 4 am. - now satO2 is in high 90s . SOB improved. - give NO diuresis today , and in am resume her PO lasix. if needed can giev IV lasix - echo 4- Elevated trop: likely demand ischemia in setting of elevated BP. EKG with TWI in lateral leads . - repeat trop stat - received asa and plavix in ER - cont ASA . - if trop increases significantly , might need to start heparin gtt. - card consult pending - ECHO 5- POssible UTI ( pyuria and RLQ tenderness) . received levaquin last night. NO urine cx sent - send urine cx - avoid levaquin due to Qtc of 470 - give ceftiraxone empirically 6- Cough , and green sputum production. on CT scan has RUL infiltrate , which might be just fluids. can't r/o PNA . - ceftriaxone - sputum cx 7- hyponatremia. stat BMP and will replete DVT px Visit type - Emergency Visit Emergency Visit: Yes ED Registration Date: 04/02/17 Care time: The patient presented to the Emergency Department on the above date and was hospitalized for further evaluation of their emergent condition. - New Patient This patient is new to me today: Yes Date on this admission: 04/02/17 - Critical Care Critical Care patient: Yes Total Critical Care Time (in minutes): 45 Critical Care Statement: The care of this patient involved high complexity decision making to prevent further life threatening deterioration of the patient 's condition and/or to evaluate & treat vital organ system(s) failure or risk of failure.
[2017-04-02 09:26] LABS: MCH 28.4 pg (25.7-33.7); MCHC 33.1 g/dl (32.0-36.0); MEAN CELL VOLUME 85.8 fl (80-96); MEAN PLT VOLUME 7.9 fl (7.5-11.1); PLATELET COUNT 145 K/MM3 (134-434); RDW 16.4 % (11.6-15.6); WHITE BLOOD COUNT 7.7 K/mm3 (4.0-10.0)
[2017-04-02 09:44] LABS: ANION GAP 9 (8-16); CALCIUM 8.6 mg/dL (8.5-10.1); CO2 28 mmol/L (21-32); CREATININE 4.1 mg/dL (0.55-1.02); GLUCOSE,RANDOM 108 mg/dL (74-106); MAGNESIUM 2.7 mg/dL (1.8-2.4)
[2017-04-02 09:48] LABS: CPK 165 IU/L (26-192); TROPONIN I 0.28 ng/ml (0.00-0.05)
[2017-04-02] MEDS ORDERED: POTASSIUM CHLORIDE TABS 20 MEQ TABLET.ER (FP) PO SCH (10:00)
[2017-04-02] MEDS: SPIRONOLACTONE 25 MG TABLET (FP) PO SCH ×2 (10:21→11:01)
[2017-04-02] MEDS: LABETALOL HCL 200 MG TABLET (FP) PO SCH ×3 (10:21→22:03)
[2017-04-02] MEDS: amLODIPine BESYLATE 10 MG TABLET (FP) PO SCH ×2 (10:21→11:01)
--- NOTE | 2017-04-02 10:21 | CONSULT ---
Consult Consult Specialty:: Cardiology Referred by:: ICU Reason for Consultation:: "Enlarged heart on CXR" - History of Present Illness History of Present Illness: 36 yo AA female Dx with secondary HTN (hyperaldo) in [address] Luigi Dunham and hypertensive specialist Dr Vargas ([facility]) Now presents with headache, fevers, whole body myalgias, cough and vomiting. Also with constant chest pain/pressure Initial Trop 0.29 CXR with cardiomegally. Admitted to ICU for hypertensive emergency and treated with Nipride gtt No known h/o cardiomegally or cardiomyopathy :ast echo was at [facility] in August 2016 - History Source History Provided By: Patient Limitations to Obtaining History: No Limitations - Past Medical History ...: No - Alcohol/Substance Use Hx Alcohol Use: Yes (social) - Smoking History Smoking history: Former smoker Have you smoked in the past 12 months: Yes If you are a former smoker, when did you quit?: january Home Medications - Allergies Allergies/Adverse Reactions: Allergies Allergy/AdvReac Type Severity Reaction Status Date / Time No Known Allergies Allergy Verified 04/01/17 23:47 - Home Medications Home Medications: Ambulatory Orders Amlodipine Besylate 10 mg PO DAILY 04/01/17 Furosemide 20 mg PO DAILY 04/01/17 Labetalol HCl [Normodyne -] 600 mg PO BID 04/01/17 Spironolactone 50 mg PO DAILY 04/01/17 Clonidine Patch [Catapres Tts Patch -] 0.3 mg TD WEEKLY 04/02/17 Doxazosin Mesylate 8 mg PO DAILY 04/02/17 Minoxidil [Lonitin -] 2.5 mg PO DAILY 04/02/17 Physical Exam Vital Signs: Vital Signs Temperature 98.2 F 04/02/17 06:35 Pulse Rate 84 04/02/17 08:00 Respiratory Rate 20 04/02/17 09:00 Blood Pressure 162/108 04/02/17 08:00 O2 Sat by Pulse Oximetry (%) 96 04/02/17 09:00 Constitutional: Yes: No Distress, Calm Eyes: Yes: WNL HENT: Yes: WNL Neck: Yes: WNL Cardiovascular: Yes: WNL, Regular Rate and Rhythm Respiratory: Yes: CTA Bilaterally Gastrointestinal: Yes: Normal Bowel Sounds Extremities: Yes: WNL Edema: No Labs: CBC, BMP 04/02/17 08:40 04/02/17 08:40 Imaging - Results X-ray: Image Reviewed (CXR with clear lungs but cardiomegally) EKG: Image Reviewed (ECG on 04/02/2017 at 04:11 shows NSR at 77/min with LAE and T-wave inversions in V3-V6 and borderline LVH.) Assessment/Plan 36 yo female with hyperaldo secondary htn admitted with viral like illness and hypertensive crisis. Concerns for cardiomegally on CXR 1) HTN -Continue Nipride until able to tolerate PO regimen (vomiting) -Needs aggressive K replacement 2) (+) Troponin -Doubt ACS etiology, negative CK-MB -Otherwise Low CV risk (HTN only CV risk factor) -Likely related to viral illness -ECG with lateral ST depression but likely related to LVH 3) Cardiomegally -Will get echo to assess biventricular size and function
[2017-04-02 10:26] LABS: MAGNESIUM 2.7 mg/dL (1.8-2.4); PHOSPHOROUS 3.8 mg/dL (2.5-4.9)
[2017-04-02] MEDS: CEFTRIAXONE 1 G/50 ML PREMIX 50 ML IVPB SCH (10:53)
[2017-04-02] MEDS: MUPIROCIN 2% TOPICAL OINTMENT FOR DECOLONIZATION NS SCH ×2 (10:53→22:02)
[2017-04-02] MEDS: DOXAZOSIN MESYLATE 4 MG TABLET PO SCH (11:00)
[2017-04-02] MEDS: MINOXIDIL 2.5 MG TABLET PO SCH (11:00)
[2017-04-02] MEDS ORDERED: POTASSIUM CHLORIDE 30 MEQ in SODIUM CHLORIDE 285 ML IVPB ONE (11:00)
[2017-04-02 11:35] LABS: URINE LEUK ESTERASE 2+ (NEGATIVE)
--- NOTE | 2017-04-02 12:14 | CONSULT ---
Consult - text type - Consultation Consultation Note: Pulm/CCM Pt seen and examined in ICU MDs: Followed closely by Dr. 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 Relates sick prodrome with arthralgias/myalgias, cough productive of green sputum.Denies sick contacts. Has had inablility to take her multiple meds due to N/V. In ED was hypertensive 250/150, started on Ntg gtt, CT head negative. BOEYR treated with PO meds and IV opiates. Labs notable for Cr 4 (up from baseline 2 in September). WBC normal. Hgb 8--> 7, unk baseline, no hx of bleeding. Recurrent emesis required transition to Nitroprusside gtt with Bp 160s. Mild trop leak felt to be demand, not ACS per cardiology, trop 0.28 x 2. BNP 64K. Serial trop being sent. TTE ordered. Admitted to for IV gtt BP control with Nipride, awake alert without deficit. Ambulatory Orders Amlodipine Besylate 10 mg PO DAILY 04/01/17 Furosemide 20 mg PO DAILY 04/01/17 Labetalol HCl [Normodyne -] 600 mg PO BID 04/01/17 Spironolactone 50 mg PO DAILY 04/01/17 Clonidine Patch [Catapres Tts Patch -] 0.3 mg TD WEEKLY 04/02/17 Doxazosin Mesylate 8 mg PO DAILY 04/02/17 Minoxidil [Lonitin -] 2.5 mg PO DAILY 04/02/17 PMHx/Shx -Conn's syndrome -hypoaldo -HTN -/hysterectomy Family hx: non-contrib Social History Smoking history Former smoker Have you smoked in the past 12 Yes months Hx Alcohol Use Yes: social X-ray: Image Reviewed: no infiltrate, enlarge cardiac profile EKG: Image Reviewed by cardiology: NSR at 77/min with LAE and T-wave inversions in V3-V6 and borderline LVH Active Medications Amlodipine Besylate (Norvasc -) 10 mg PO DAILY [facility] Last Admin: 04/02/17 11:01 Dose: Not Given Aspirin (Ecotrin -) 81 mg PO DAILY [facility] Chlorhexidine Gluconate (Hibiclens For Decolonization -) 1 applic TP HS [facility] Clonidine HCl (Catapres Tts Patch -) 0.3 mg TD Mo@1000 [facility] Doxazosin Mesylate (Cardura -) 8 mg PO DAILY [facility] Last Admin: 04/02/17 11:00 Dose: Not Given Furosemide (Lasix -) 20 mg PO DAILY [facility] Heparin Sodium (Porcine) (Heparin -) 5,000 unit SQ TID [facility] Sodium Nitroprusside 50,000 (mcg/ Sodium Chloride) 250 mls @ 11.43 mls/hr IVPB TITR BRET; 0.5 MCG/KG/MIN PRN Reason: Protocol Last Titration: 04/02/17 06:08 Dose: 1.04 mcg/kg/min, 24 mls/hr CEFTRIAXONE 1 G/50 ML PREMIX (Ceftriaxone 1 Gm-D5w Bag) 50 mls @ 100 mls/hr IVPB DAILY [facility] Last Admin: 04/02/17 10:53 Dose: 100 mls/hr Potassium Chloride 30 meq/ (Sodium Chloride) 300 mls @ 100 mls/hr IVPB ONCE ONE Stop: 04/02/17 13:59 Last Admin: 04/02/17 12:16 Dose: 100 mls/hr Labetalol HCl (Normodyne -) 600 mg PO BID [facility] Last Admin: 04/02/17 10:21 Dose: 600 mg Minoxidil (Lonitin -) 2.5 mg PO DAILY [facility] Last Admin: 04/02/17 11:00 Dose: Not Given Morphine Sulfate (Morphine Sulfate) 2 mg IVPUSH Q3H PRN PRN Reason: PAIN Mupirocin (Bactroban Ointment (For Decolonization) -) 1 applic NS BID [facility] Stop: 04/07/17 09:59 Last Admin: 04/02/17 10:53 Dose: 1 applic Spironolactone (Aldactone -) 50 mg PO DAILY [facility] Last Admin: 04/02/17 11:01 Dose: Not Given CBCD WBC 7.7 K/mm3 (4.0-10.0) 04/02/17 08:40 RBC 2.66 M/mm3 (3.60-5.2) L 04/02/17 08:40 Hgb 7.6 GM/dL (10.7-15.3) L D 04/02/17 08:40 Hct 22.8 % (32.4-45.2) L 04/02/17 08:40 MCV 85.8 fl (80-96) 04/02/17 08:40 MCHC 33.1 g/dl (32.0-36.0) 04/02/17 08:40 RDW 16.4 % (11.6-15.6) H 04/02/17 08:40 Plt Count 145 K/MM3 (134-434) 04/02/17 08:40 MPV 7.9 fl (7.5-11.1) D 04/02/17 08:40 CMP Sodium 141 mmol/L (136-145) 04/02/17 08:40 Potassium 2.7 mmol/L (3.5-5.1) L* 04/02/17 08:40 Chloride 104 mmol/L (98-107) 04/02/17 08:40 Carbon Dioxide 28 mmol/L (21-32) 04/02/17 08:40 Anion Gap 9 (8-16) 04/02/17 08:40 BUN 27 mg/dL (7-18) H 04/02/17 08:40 Creatinine 4.1 mg/dL (0.55-1.02) H 04/02/17 08:40 Creat Clearance w eGFR 12.18 (>60) 04/02/17 03:00 Random Glucose 108 mg/dL (74-106) H 04/02/17 08:40 Calcium 8.6 mg/dL (8.5-10.1) 04/02/17 08:40 Total Bilirubin 0.5 mg/dL (0.2-1.0) 04/02/17 03:00 AST 21 U/L (15-37) 04/02/17 03:00 ALT 30 U/L (12-78) 04/02/17 03:00 Alkaline Phosphatase 51 U/L (45-117) 04/02/17 03:00 Total Protein 6.0 g/dl (6.4-8.2) L 04/02/17 03:00 Albumin 3.2 g/dl (3.4-5.0) L 04/02/17 03:00 CARDIAC ENZYMES Creatine Kinase 165 IU/L (26-192) 04/02/17 08:40 Troponin I 0.28 ng/ml (0.00-0.05) H 04/02/17 08:40 Troponin, BNP 04/02/17 04/02/17 04/02/17 00:12 03:00 08:40 Troponin I Cancelled 0.29 H 0.28 H B-Natriuretic Peptide Cancelled 63478.06 H 04/02/17 08:40 Troponin I Cancelled B-Natriuretic Peptide PE: Gen: young woman, Awake, alert, w/o distress c/o BOYER HEENT: no exopthalmos, EOMI, No JVP CV; RRR, III/ BENITEZ LSB, no displaced PMI PULM: clear, no wheezes ABD: soft, NT, +BS, nauseated EXT: trace LE edema, 2+ pulses Neuro: BOYER but non focal exam, CN intact X-ray: Image Reviewed: no infiltrate, enlarge cardiac profile EKG: Image Reviewed by cardiology: NSR at 77/min with LAE and T-wave inversions in V3-V6 and borderline LVH A/ 36 y/o woman with h/o hyperaldosteronism, difficult to control HTN , CKD no with HTN emergency in setting of inability to take PO meds, improved on Nipride gtt CV: HTN emergency, demand ischemia -serial trop - NItroprosside gtt, BP goal SBP 160s - will attempt to restart oral home meds ( minoxidil, norvasc, labetalol, doxazosin, spironolactone and lasix). - cont clonidine patch, due to change in am - taper nitroprosside gtt to off once back on PO - No ICH on prelim CT of head - TTE -cardiology/[place] following, appreciate recs, does not feel ACS, 81mg ASA, will hold futher antiplt -lipid panel PULM: RUL infiltrate on Chest CT, cough with sputum, -would add azith for atypical CAP coverage to ceftriaxone on for ? UTI -fio2 as needed - repeat CXR tomorrow Renal : MADISON on CKD 2/2 HTN, ? cardiac dysfunction: - received lasix - trend BUN/Cr - check urine electrolytes - obtain renal US -replete K Gu: ? UTI, pyuria + LE, denies dysuria -f/u urine cx -ceftiraxone empirically Heme: anemia, unk if chronic -f/u with PMD -anemia workup if not chronic DVT prophy, no indication for GI Cachorro Damon ACNP [id number]
[2017-04-02] MEDS ORDERED: AZITHROMYCIN IVPB 500 MG in DEXTROSE 5%-WATER - 250 ML IVPB SCH (14:30)
[2017-04-02] MEDS: HEPARIN NA (PORCINE) 5,000 UNITS/ML 1ML VIAL SQ SCH ×2 (16:40→22:06)
[2017-04-02] MEDS: morphine SULFATE 4 MG/ML VIAL IVPUSH PRN ×2 (17:03→20:32)
[2017-04-02 17:07] LABS: TROPONIN I 0.26 ng/ml (0.00-0.05)
[2017-04-02] MEDS: POTASSIUM CHLORIDE ORAL LIQUID 20 MEQ/15 ML PO ONE ×2 (17:37→17:50)
[2017-04-02] MEDS: CHLORHEXIDINE GLUCONATE 4% CLEANSER FOR DECOLONIZATION TP SCH (22:02)
[2017-04-03] MEDS ORDERED: ONDANSETRON 4 MG/2 ML VIAL ONE (00:34)
[2017-04-03] MEDS ORDERED: ONDANSETRON 4 MG/2 ML VIAL IVPUSH ONE (01:00)
[2017-04-03] MEDS ORDERED: hydrALAZINE HCL 20 MG/ML VIAL ONE (03:05)
[2017-04-03] MEDS ORDERED: hydrALAZINE HCL 20 MG/ML VIAL IVPUSH ONE (03:15)
[2017-04-03] MEDS: HEPARIN NA (PORCINE) 5,000 UNITS/ML 1ML VIAL SQ SCH ×4 (06:29→21:49)
[2017-04-03] MEDS: NITROPRUSSIDE SODIUM 50,000 MCG in SODIUM CHLORIDE 248 ML IVPB SCH ×2 (06:30→08:00)
[2017-04-03 06:37] LABS: BASO % 0.1 % (0-2.0); EOS % 3.5 % (0-4.5); MEAN CELL VOLUME 85.3 fl (80-96); MEAN PLT VOLUME 8.9 fl (7.5-11.1); PLATELET COUNT 162 K/MM3 (134-434); RDW 16.5 % (11.6-15.6); WHITE BLOOD COUNT 8.8 K/mm3 (4.0-10.0)
[2017-04-03 07:02] LABS: ANION GAP 10 (8-16); CALCIUM 8.7 mg/dL (8.5-10.1); CO2 28 mmol/L (21-32); CREATININE 4.2 mg/dL (0.55-1.02); GLUCOSE,RANDOM 116 mg/dL (74-106); MAGNESIUM 2.4 mg/dL (1.8-2.4); PHOSPHOROUS 3.5 mg/dL (2.5-4.9)
[2017-04-03] MEDS ORDERED: POTASSIUM CHLORIDE TABS 20 MEQ TABLET.ER (FP) PO ONE ×2 (08:00→22:00)
[2017-04-03] MEDS: morphine SULFATE 4 MG/ML VIAL IVPUSH PRN (08:13)
[2017-04-03 09:32] LABS: FERRITIN 89.029 ng/ml (6.9-282.5)
[2017-04-03] MEDS ORDERED: PT OWN MED DRAWER 7, Y5N ONE ×2 (09:33→21:44)
[2017-04-03] MEDS: DOXAZOSIN MESYLATE 4 MG TABLET PO SCH (09:41)
[2017-04-03] MEDS: MINOXIDIL 2.5 MG TABLET PO SCH (09:41)
[2017-04-03] MEDS: CEFTRIAXONE 1 G/50 ML PREMIX 50 ML IVPB SCH (09:47)
[2017-04-03] MEDS ORDERED: cloNIDine-TTS 0.3 MG /24 HRS PATCH.TDWK TD SCH (10:00)
[2017-04-03] MEDS: ASPIRIN COATED 81 MG TABLET.EC PO SCH (10:32)
[2017-04-03] MEDS: SPIRONOLACTONE 25 MG TABLET (FP) PO SCH (10:33)
[2017-04-03] MEDS: amLODIPine BESYLATE 10 MG TABLET (FP) PO SCH (10:34)
[2017-04-03] MEDS: LABETALOL HCL 200 MG TABLET (FP) PO SCH ×2 (10:34→21:49)
--- NOTE | 2017-04-03 10:37 | PN ---
Progress Note, Physician Chief Complaint: htn emergency History of Present Illness: no more cp. never had "tearing" sensation or back pain nausea better--tolerating po meds still BOYER and intermittent blurred vision no sob ex cigs - Current Medication List Current Medications: Active Medications Amlodipine Besylate (Norvasc -) 10 mg PO DAILY [facility] Last Admin: 04/03/17 10:34 Dose: 10 mg Aspirin (Ecotrin -) 81 mg PO DAILY [facility] Last Admin: 04/03/17 10:32 Dose: 81 mg Chlorhexidine Gluconate (Hibiclens For Decolonization -) 1 applic TP HS [facility] Last Admin: 04/02/17 22:02 Dose: 1 applic Clonidine HCl (Catapres Tts Patch -) 0.3 mg TD Mo@1000 [facility] Last Admin: 04/03/17 09:36 Dose: 0.3 mg Doxazosin Mesylate (Cardura -) 8 mg PO DAILY [facility] Last Admin: 04/03/17 09:41 Dose: 8 mg Furosemide (Lasix -) 20 mg PO DAILY [facility] Heparin Sodium (Porcine) (Heparin -) 5,000 unit SQ TID [facility] Last Admin: 04/03/17 06:29 Dose: 5,000 unit Sodium Nitroprusside 50,000 (mcg/ Sodium Chloride) 250 mls @ 11.43 mls/hr IVPB TITR BRET; 0.5 MCG/KG/MIN PRN Reason: Protocol Last Titration: 04/03/17 09:47 Dose: 1 mcg/kg/min, 22.86 mls/hr CEFTRIAXONE 1 G/50 ML PREMIX (Ceftriaxone 1 Gm-D5w Bag) 50 mls @ 100 mls/hr IVPB DAILY [facility] Last Admin: 04/03/17 09:47 Dose: 100 mls/hr Potassium Chloride (Potassium Chloride 10 Meq Premix Ivpb -) 10 meq in 100 mls @ 100 mls/hr IVPB Q60M [facility] Stop: 04/03/17 12:14 Labetalol HCl (Normodyne -) 600 mg PO BID [facility] Last Admin: 04/03/17 10:34 Dose: 600 mg Minoxidil (Lonitin -) 2.5 mg PO DAILY [facility] Last Admin: 04/03/17 09:41 Dose: 2.5 mg Morphine Sulfate (Morphine Sulfate) 2 mg IVPUSH Q3H PRN PRN Reason: PAIN Last Admin: 04/03/17 08:13 Dose: 2 mg Mupirocin (Bactroban Ointment (For Decolonization) -) 1 applic NS BID [facility] Stop: 04/07/17 09:59 Last Admin: 04/02/17 22:02 Dose: 1 applic Spironolactone (Aldactone -) 50 mg PO DAILY [facility] Last Admin: 04/03/17 10:33 Dose: 50 mg - Objective Vital Signs: Vital Signs Temperature 98.5 F 04/03/17 06:00 Pulse Rate 97 H 04/03/17 10:15 Respiratory Rate 15 04/03/17 06:00 Blood Pressure 172/103 04/03/17 09:47 O2 Sat by Pulse Oximetry (%) 95 04/03/17 10:15 Labs: CBC, BMP 04/03/17 06:15 04/03/17 06:15 INR, PTT INR Cancelled 04/02/17 00:00 Assessment/Plan ECG 04/02/2017 : NSR at 77/min with LAE, LVH with assctd repol abn (no old) Echo here 04/02: mod LVH (concentric); nl LVSF. nl RV. nl LA. mild AI/MR/TR. normal aortic root. small effusion Assessment/Plan 36 yo female with hyperaldo secondary htn admitted with viral like illness and hypertensive crisis. Concerns for cardiomegally on CXR hypertensive emergency, known Conn syndrome/hyperaldo -initially bp 250/150 here with cp, vision changes -Continue Nipride until able to tolerate PO regimen (vomiting) -cont home spirono (50 qd), amlodipine, clonidine patch, labetalol, alpha arnoldo -bp targets re: usual htn emergency protocol -replete K -consider increase spironolactone back to 100 qd if K remains low, and/or if bp not well controlled on po meds prior to discharge (tolerated 010mg qd in past, dose was decr'd to 50 in plans to wean down and do adrenal vein sampling per pt , but this was ultimately deferred) -consideration of adrenaloma resection as outpatient, patient is linked in to htn specialist (+) Troponin, atyp cp -trop 0.2 x3, not c/w ACS = secondary to htn emergency with underlying signif LVH -ecg not ischemic -initial sx's of nonexertional crampy cp likely related to high bp +/- anxiety-- doubt ACS here. sx's resolved -did not have sx's suggestive of aorta dissection and they resolved promptly on their own. no flap suspected on CT (non-contrast), CXR reviewed by me: no widened mediastinum. CKD vs MADISON component: -creat 4's here, no priors -per critical care +/- renal anemia: -? baseline -defer to hospitalist, crit care est time in data review, pt exam, and formulating mgmt plan of potentially life threatening issues = 35 min
[2017-04-03 10:57] LABS: URINE CREATININE 69.2 mg/dL (20-320)
[2017-04-03] MEDS ORDERED: ACETAMINOPHEN 1000 MG/100 ML VIAL (NON FORMULARY) IVPB ONE (11:15)
[2017-04-03] MEDS: KCL 10 MEQ IVPB 10 MEQ/100 ML INFUS.BAG IVPB SCH (11:22)
[2017-04-03] MEDS: FUROSEMIDE 20 MG TABLET (FP) PO SCH (11:25)
[2017-04-03] MEDS: MUPIROCIN 2% TOPICAL OINTMENT FOR DECOLONIZATION NS SCH ×2 (11:26→21:49)
--- NOTE | 2017-04-03 12:46 | PN ---
Teaching Attending Note Name of Resident: Vinh Dumont ATTENDING PHYSICIAN STATEMENT I saw and evaluated the patient. I reviewed the resident's note and discussed the case with the resident. I agree with the resident's findings and plan as documented. SUBJECTIVE: No fever or chills. has L sided neck pain, has chest presure since admisison., has BOYER still not changed form yesterday. no visual changes or weakness, numbnees or tingling OBJECTIVE: NAD , AAOx3 HEENT: MMM, no facial droop, EOMI, round equal reactive pupils . CV: RRR, 3/6 Sm all over precardium , but heard best over RUSB . minimal JVD Lungs bibasilar crackles L > R Abd: soft, ND, TTP in RLQ , with no rebound tenderness or guarding Ext: No edema . DP 2+ b/l Neuro : no facial droop, EOMI, round equal reactive pupils, tongue at mid line , nl facial sensation . strength 5/5 in upper and lower ext , proximally and distally. sensation to light touch NL. reflexes 2+ knee jerk and biceps b/l Assessment/Plan: Unfortunate 36 y/o lady with h/o hyperaldosteronism, uncontrolled HTN , CKD , , who presented with N/V, BOYER, and chest pain, and was found to have hypertensive emergency 1- HTN emergency: did not tolerate po BP meds yesterday, remains on Nitroprosside drip . - oral zenobia emeds if able to tolerate in effort to taper gtt off - cont clonidine patch - check US doppler of neck due to L sided neck pain in setting of severe HTN( R/ o caortid dissection ) 2- MADISON on CKD: her base line Cr is 2.3 in september per her. MADISON is likely due to severe HTN and possibly also decreased [employer] from heart failure - FeUrea 52%. indicating intrinsic etiology, but she also has CKD . - kidneys with no hydro on US - monitor renal function. if it worsens , might need renal on board 3- Acute flash pulmonary edema , from severe HTN. - volume status has much improved, no O2 requirement today . - cont po lasix a home dose - echo reviewed. 4- Elevated trop: likely demand ischemia in setting of elevated BP. - moitor - repeat EKG today - cont asa 5- Possible UTI ( pyuria and RLQ tenderness). received levaquin last night. NO urine cx sent - ceftriaxone. day 3 of abx 6- Possible PNA ( CAP) - ceftriaxone - sputum cx 7- hypokalemia ; replete DVT px : ICU level of care Critical Care Total Critical Care Time (in minutes): 40 Critical Care Statement: The care of this patient involved high complexity decision making to prevent further life threatening deterioration of the patient 's condition and/or to evaluate & treat vital organ system(s) failure or risk of failure.
--- NOTE | 2017-04-03 14:14 | PN ---
Physical Exam: SUBJECTIVE: Patient did well overnight, complaining of headache while on nitro drip. Has a tray of food at bedside and is communicative. OBJECTIVE: Vital Signs Period Temp Pulse Resp BP Sys/Li Pulse Ox Last 24 Hr 98.2 F-98.6 F 71-112 12- 155-183/100-124 92-95 GENERAL: The patient is awake, alert, and fully oriented, in no acute distress. HEAD: Normal with no signs of trauma. EYES: PERRL, extraocular movements intact, sclera anicteric, conjunctiva clear. No ptosis. ENT: Ears normal, nares patent, oropharynx clear without exudates, moist mucous membranes. NECK: Trachea midline, full range of motion, supple. LUNGS: Breath sounds equal, clear to auscultation bilaterally, no wheezes, no crackles, no accessory muscle use. HEART: Regular rate and rhythm, S1, S2 without murmur, rub or gallop. ABDOMEN: Soft, nontender, nondistended, normoactive bowel sounds, no guarding, no rebound, no hepatosplenomegaly, no masses. EXTREMITIES: 2+ pulses, warm, well-perfused, no edema. NEUROLOGICAL: Cranial nerves II through XII grossly intact. Normal speech, gait not observed. PSYCH: Normal mood, normal affect. SKIN: Warm, dry, normal turgor, no rashes or lesions noted Laboratory Results - last 24 hr 04/02/17 04/02/17 04/02/17 16:27 16:27 16:39 WBC RBC Hgb Hct MCV MCH MCHC RDW Plt Count MPV Neutrophils % Lymphocytes % Monocytes % Eosinophils % Basophils % Sodium Potassium 3.2 L Chloride Carbon Dioxide Anion Gap BUN Creatinine Random Glucose Calcium Phosphorus Magnesium Ferritin Creatine Kinase 133 Troponin I 0.26 H Vitamin B12 Serum Folate Urine Protein 93 Urine Creatinine 69.2 04/03/17 04/03/17 04/03/17 06:15 06:15 09:05 WBC 8.8 RBC 2.68 L Hgb 7.8 L Hct 22.9 L MCV 85.3 MCH 29.0 MCHC 34.0 RDW 16.5 H Plt Count 162 MPV 8.9 D Neutrophils % 87.0 H Lymphocytes % 6.1 L D Monocytes % 3.3 L Eosinophils % 3.5 Basophils % 0.1 Sodium 142 Potassium 3.0 L Chloride 104 Carbon Dioxide 28 Anion Gap 10 BUN 26 H Creatinine 4.2 H Random Glucose 116 H Calcium 8.7 Phosphorus 3.5 Magnesium 2.4 Ferritin 89.029 Creatine Kinase Troponin I Vitamin B12 394 Cancelled Serum Folate 6 Cancelled Urine Protein Urine Creatinine 04/03/17 09:05 WBC RBC Hgb Hct MCV MCH MCHC RDW Plt Count MPV Neutrophils % Lymphocytes % Monocytes % Eosinophils % Basophils % Sodium Potassium Chloride Carbon Dioxide Anion Gap BUN Creatinine Random Glucose Calcium Phosphorus Magnesium Ferritin Cancelled Creatine Kinase Troponin I Vitamin B12 Serum Folate Urine Protein Urine Creatinine Active Medications Generic Name Dose Route Start Last Admin Trade Name Ismaelq PRN Reason Stop Dose Admin Amlodipine Besylate 10 mg 04/02/17 10:00 04/03/17 10:34 Norvasc - PO 10 mg DAILY BRET Administration Aspirin 81 mg 04/03/17 10:00 04/03/17 10:32 Ecotrin - PO 81 mg DAILY BRET Administration Chlorhexidine Gluconate 1 applic 04/02/17 22:00 04/02/17 22:02 Hibiclens For Decolonization - TP 1 applic HS BRET Administration Clonidine HCl 0.3 mg 04/03/17 10:00 04/03/17 09:36 Catapres Tts Patch - TD 0.3 mg Mo@1000 BRET Administration Doxazosin Mesylate 8 mg 04/02/17 10:00 04/03/17 09:41 Cardura - PO 8 mg DAILY BRET Administration Furosemide 20 mg 04/03/17 10:00 04/03/17 11:25 Lasix - PO 20 mg DAILY BRET Administration Heparin Sodium (Porcine) 5,000 unit 04/02/17 06:00 04/03/17 06:29 Heparin - SQ 5,000 unit TID BRET Administration Sodium Nitroprusside 50,000 250 mls @ 11.43 mls/hr 04/02/17 04:15 04/03/17 09 :47 mcg/ Sodium Chloride IVPB 1 mcg/kg/min TITR BRET 22.86 mls/hr Protocol Titration 0.5 MCG/KG/MIN CEFTRIAXONE 1 G/50 ML PREMIX 50 mls @ 100 mls/hr 04/02/17 09:00 04/03/17 09: 47 Ceftriaxone 1 Gm-D5w Bag IVPB 100 mls/hr DAILY BRET Administration Labetalol HCl 600 mg 04/02/17 10:00 04/03/17 10:34 Normodyne - PO 600 mg BID BRET Administration Minoxidil 2.5 mg 04/02/17 10:00 04/03/17 09:41 Lonitin - PO 2.5 mg DAILY BRET Administration Mupirocin 1 applic 04/02/17 10:00 04/03/17 11:26 Bactroban Ointment (For Decolonization) - NS 04/07/17 09:59 1 applic BID BRET Administration Potassium Chloride 40 meq 04/03/17 22:00 K-Dur - PO 04/03/17 22:01 ONCE ONE Spironolactone 50 mg 04/02/17 10:00 04/03/17 10:33 Aldactone - PO 50 mg DAILY BRET Administration Trazodone HCl 100 mg 04/03/17 22:00 Desyrel - PO HS BRET ASSESSMENT/PLAN: A/ 36 y/o woman with h/o hyperaldosteronism, difficult to control HTN , CKD no with HTN emergency in setting of inability to take PO meds, improved on Nipride gtt Neuro: Headache: Beleived to be secondary to nitrpprusside drip - Will DC nitro drip - Carotid US pending - Tylenol 1G IV CV: HTN emergency: Difficult to control HTN with presenting pressures in 200s and visual symptoms with headache, No ICH on prelim CT of head - Serial trop peaked at 0.29 and likely demand ischemia, atyp cp not c/w ACS, EKG demonstrating signif LVH and no ischemic changes. CT and CXR not demonstrating widened mediastinum per cardiology. - DC Nitroprosside gtt and start on oral home meds (minoxidil, norvasc, labetalol, doxazosin, spironolactone and lasix) , BP goal SBP 160s - Consider increase spironolactone back to 100 qd if K remains low per cards - Can use cardene drip if needed - Cont clonidine patch to prevent rebound, although this is a very poor BP controller - Per cards: Consideration of adrenaloma resection as outpatient, patient is linked in to htn specialist - Echo demonstrating mild TR, AR, LVH and small pericardial effusion PULM: PNA: RUL infiltrate on Chest CT. - Flu negative - On ceftriaxone but can consider adding azithromycin per primary team. Did receive one dose of levaquin in the ER Renal : MADISON on CKD (pt. states 3.8 is new baselien cr). Likely due to poorly controlled HTN - Renal U/S not showing hydro - received lasix - trend BUN/Cr - FeUrea 52%. indicating possible intrinsic etiology - kidneys with no hydro on US - monitor renal function. if it worsens , might need renal on board - K repletion will be enforced as patient was previously nauseous UTI ( pyuria and RLQ tenderness). - Received levaquin in ER. - Continue Ceftriaxone - U. Cx negative Heme: anemia, unk if chronic -f/u with PMD -anemia workup if not chronic FEN: Replete K PRN Full diet Prophylaxis: Hep subq Eating Visit type - Emergency Visit Emergency Visit: No - New Patient This patient is new to me today: No - Critical Care Critical Care patient: No - Discharge Referral Referred to [facility] No
--- NOTE | 2017-04-03 14:36 | PN ---
Teaching Attending Note Name of Resident: Lynne Yates ATTENDING PHYSICIAN STATEMENT I saw and evaluated the patient. I reviewed the resident's note and discussed the case with the resident. I agree with the resident's findings and plan as documented. SUBJECTIVE: Pt seen and examined in the ICU. Remains on nitroprusside gtt. c/o headache, nausea improving. OBJECTIVE: Last Vital Signs Temp Pulse Resp BP Pulse Ox 98.5 F 112 H 16 182/119 95 04/03/17 06:00 04/03/17 10:30 04/03/17 10:30 04/03/17 10:30 04/03/17 10:15 Intake & Output 03/31/17 04/01/17 04/02/17 04/03/17 23:59 23:59 23:59 23:59 Intake Total 1060 600 Output Total 975 Balance 85 600 Weight 168 lb 176 lb 5.917 oz 177 lb 0.499 oz Gen: NAD at rest Heart: tachycardic,regular Lung: decreased breath sounds at the bases Abd: soft, nontender Ext: no edema CBC, BMP 04/03/17 06:15 04/03/17 06:15 Active Medications Amlodipine Besylate (Norvasc -) 10 mg PO DAILY [facility] Last Admin: 04/03/17 10:34 Dose: 10 mg Aspirin (Ecotrin -) 81 mg PO DAILY [facility] Last Admin: 04/03/17 10:32 Dose: 81 mg Chlorhexidine Gluconate (Hibiclens For Decolonization -) 1 applic TP HS [facility] Last Admin: 04/02/17 22:02 Dose: 1 applic Clonidine HCl (Catapres Tts Patch -) 0.3 mg TD Mo@1000 [facility] Last Admin: 04/03/17 09:36 Dose: 0.3 mg Doxazosin Mesylate (Cardura -) 8 mg PO DAILY [facility] Last Admin: 04/03/17 09:41 Dose: 8 mg Furosemide (Lasix -) 20 mg PO DAILY [facility] Last Admin: 04/03/17 11:25 Dose: 20 mg Heparin Sodium (Porcine) (Heparin -) 5,000 unit SQ TID [facility] Last Admin: 04/03/17 06:29 Dose: 5,000 unit Sodium Nitroprusside 50,000 (mcg/ Sodium Chloride) 250 mls @ 11.43 mls/hr IVPB TITR BRET; 0.5 MCG/KG/MIN PRN Reason: Protocol Last Titration: 04/03/17 09:47 Dose: 1 mcg/kg/min, 22.86 mls/hr CEFTRIAXONE 1 G/50 ML PREMIX (Ceftriaxone 1 Gm-D5w Bag) 50 mls @ 100 mls/hr IVPB DAILY [facility] Last Admin: 04/03/17 09:47 Dose: 100 mls/hr Labetalol HCl (Normodyne -) 600 mg PO BID [facility] Last Admin: 04/03/17 10:34 Dose: 600 mg Minoxidil (Lonitin -) 2.5 mg PO DAILY [facility] Last Admin: 04/03/17 09:41 Dose: 2.5 mg Mupirocin (Bactroban Ointment (For Decolonization) -) 1 applic NS BID [facility] Stop: 04/07/17 09:59 Last Admin: 04/03/17 11:26 Dose: 1 applic Potassium Chloride (K-Dur -) 40 meq PO ONCE ONE Stop: 04/03/17 22:01 Spironolactone (Aldactone -) 50 mg PO DAILY [facility] Last Admin: 04/03/17 10:33 Dose: 50 mg Trazodone HCl (Desyrel -) 100 mg PO [facility] ASSESSMENT AND PLAN: Hypertensive Emergency +Troponins likely demand ischemia Acute on Chronic Renal Failure Hyperaldosteronism r/o Pneumonia - BP control with PO meds - if needs titratable gtt, can start nicardipine gtt - continue antibiotics - f/u cultures - monitor urine output, creatinine - states that her baseline creatinine is around 2.6 - replete lytes - PO as tolerated - DVT prophylaxis - continue ICU monitoring while on nipride gtt critical care time spent in reviewing chart, evaluating patient and formulating plan 35 min
[2017-04-03] MEDS ORDERED: METOCLOPRAMIDE HCL INJECTION 10 MG/2 ML VIAL IVPUSH PRN (14:58)
[2017-04-03] MEDS ORDERED: morphine SULFATE 4 MG/ML VIAL IVPUSH PRN (15:04)
[2017-04-03] MEDS ORDERED: niCARdipine HCL 25 MG/10 ML AMPUL IVPB ONE (15:21)
[2017-04-03] MEDS: NICARDIPINE 25 MG in DEXTROSE 5%-WATER - 240 ML IVPB SCH (15:28)
[2017-04-03] MEDS ORDERED: ACETAMINOPHEN 1000 MG/100 ML VIAL (NON FORMULARY) IVPB PRN (15:36)
[2017-04-03 16:11] LABS: ANION GAP 7 (8-16); CALCIUM 8.6 mg/dL (8.5-10.1); CO2 31 mmol/L (21-32); CREATININE 4.3 mg/dL (0.55-1.02); GLUCOSE,RANDOM 97 mg/dL (74-106)
[2017-04-03] MEDS ORDERED: KCL 10 MEQ IVPB 10 MEQ/100 ML INFUS.BAG IVPB SCH (17:15)
--- NOTE | 2017-04-03 19:15 | PN ---
Physical Exam: SUBJECTIVE: Patient seen and examined. No acute events overnight. Pt states that her headache is currently a 7/10 in severity. She also endorses some constipation, but denies chest pain, SOB, abdominal pain, n/v/c, and dysuria. Later in the morning, pt complaining of new onset left-sided neck pain. OBJECTIVE: Vital Signs Period Temp Pulse Resp BP Sys/Li Pulse Ox Last 24 Hr 98.3 F-98.8 F 71-114 12-26 141-183/96-120 92-95 GENERAL: middle-aged female, sitting in bed, AAOx3, in NAD HEENT: NC, AT, EOMI LUNGS: right-sided rales HEART: tachycardic, regular rhythm, no murmurs ABDOMEN: Soft, nontender, nondistended, normoactive bowel sounds, no guarding, no rebound, no hepatosplenomegaly, no masses. EXTREMITIES: 2+ pulses, warm, well-perfused, no edema. NEUROLOGICAL: Cranial nerves II through XII grossly intact. motor strength 5/5 in b/l UE and LEs, b/l sensory function intact to touch, reflexes 2+. Normal speech, gait not observed. Laboratory Results - last 24 hr 04/02/17 04/03/17 04/03/17 16:39 06:15 06:15 WBC 8.8 RBC 2.68 L Hgb 7.8 L Hct 22.9 L MCV 85.3 MCH 29.0 MCHC 34.0 RDW 16.5 H Plt Count 162 MPV 8.9 D Neutrophils % 87.0 H Lymphocytes % 6.1 L D Monocytes % 3.3 L Eosinophils % 3.5 Basophils % 0.1 Sodium 142 Potassium 3.0 L Chloride 104 Carbon Dioxide 28 Anion Gap 10 BUN 26 H Creatinine 4.2 H Random Glucose 116 H Calcium 8.7 Phosphorus 3.5 Magnesium 2.4 Ferritin 89.029 Vitamin B12 394 Serum Folate 6 Urine Protein 93 Urine Creatinine 69.2 04/03/17 04/03/17 04/03/17 09:05 09:05 13:45 WBC RBC Hgb Hct MCV MCH MCHC RDW Plt Count MPV Neutrophils % Lymphocytes % Monocytes % Eosinophils % Basophils % Sodium Potassium Chloride Carbon Dioxide Anion Gap BUN Creatinine Random Glucose Calcium Phosphorus Magnesium Ferritin Cancelled Vitamin B12 Cancelled Serum Folate Cancelled Urine Protein Urine Creatinine 160.0 04/03/17 14:40 WBC RBC Hgb Hct MCV MCH MCHC RDW Plt Count MPV Neutrophils % Lymphocytes % Monocytes % Eosinophils % Basophils % Sodium 139 Potassium 3.1 L Chloride 101 Carbon Dioxide 31 Anion Gap 7 L BUN 26 H Creatinine 4.3 H Random Glucose 97 Calcium 8.6 Phosphorus Magnesium Ferritin Vitamin B12 Serum Folate Urine Protein Urine Creatinine Active Medications Generic Name Dose Route Start Last Admin Trade Name Freq PRN Reason Stop Dose Admin Acetaminophen 1,000 mg 04/03/17 15:36 Ofirmev Injection - IVPB Q6H PRN FEVER OR PAIN Amlodipine Besylate 10 mg 04/02/17 10:00 04/03/17 10:34 Norvasc - PO 10 mg DAILY BRET Administration Aspirin 81 mg 04/03/17 10:00 04/03/17 10:32 Ecotrin - PO 81 mg DAILY BRET Administration Chlorhexidine Gluconate 1 applic 04/02/17 22:00 04/02/17 22:02 Hibiclens For Decolonization - TP 1 applic HS BRET Administration Clonidine HCl 0.3 mg 04/03/17 10:00 04/03/17 09:36 Catapres Tts Patch - TD 0.3 mg Mo@1000 BRET Administration Doxazosin Mesylate 8 mg 04/02/17 10:00 04/03/17 09:41 Cardura - PO 8 mg DAILY BRET Administration Furosemide 20 mg 04/03/17 10:00 04/03/17 11:25 Lasix - PO 20 mg DAILY BRET Administration Heparin Sodium (Porcine) 5,000 unit 04/02/17 06:00 04/03/17 15:20 Heparin - SQ 5,000 unit TID BRET Administration Sodium Nitroprusside 50,000 250 mls @ 11.43 mls/hr 04/02/17 04:15 04/03/17 18 :42 mcg/ Sodium Chloride IVPB 0 mcg/kg/min TITR BRET 0 mls/hr Protocol Titration 0.5 MCG/KG/MIN CEFTRIAXONE 1 G/50 ML PREMIX 50 mls @ 100 mls/hr 04/02/17 09:00 04/03/17 09: 47 Ceftriaxone 1 Gm-D5w Bag IVPB 100 mls/hr DAILY BRET Administration Nicardipine HCl 25 mg/ 250 mls @ 25 mls/hr 04/03/17 15:00 04/03/17 15:28 Dextrose IVPB 2.5 mg/hr TITR BRET 25 mls/hr Protocol Administration 2.5 MG/HR Labetalol HCl 600 mg 04/02/17 10:00 04/03/17 10:34 Normodyne - PO 600 mg BID BRET Administration Metoclopramide HCl 10 mg 04/03/17 14:58 Reglan Injection - IVPUSH Q8H PRN NAUSEA AND/OR VOMITING Minoxidil 2.5 mg 04/02/17 10:00 04/03/17 09:41 Lonitin - PO 2.5 mg DAILY BRET Administration Mupirocin 1 applic 04/02/17 10:00 04/03/17 11:26 Bactroban Ointment (For Decolonization) - NS 04/07/17 09:59 1 applic BID BRET Administration Potassium Chloride 40 meq 04/03/17 22:00 K-Dur - PO 04/03/17 22:01 ONCE ONE Spironolactone 50 mg 04/02/17 10:00 04/03/17 10:33 Aldactone - PO 50 mg DAILY BRET Administration Trazodone HCl 100 mg 04/03/17 22:00 Desyrel - PO HS BRET ASSESSMENT/PLAN: 36F w/ hx of hyperaldosteronism, uncontrolled HTN, and CKD who presented with acute onset N/V, BOYER, and chest pain, and was found to have hypertensive emergency. #HTN emergency - BPs 155-185/100-125 overnight - did not tolerate po BP meds yesterday and had episodes of emesis - remains on nitroprosside drip, wean off as tolerated - continue clonidine patch - f/u carotid doppler to rule out carotid dissection #MADISON on CKD-2/2 HTN with component of HF - baseline Cr is 2.3 (as of september per her) - FeUrea 52%. indicating intrinsic etiology, but she also has CKD - US abdomen: b/l echogenic ernal cortices, right renal cyst - monitor renal function. if it worsens, will consider renal consult #Acute flash pulmonary edema- 2/2 severe HTN - improved, no O2 requirement today - cont home po lasix- 20mg - echo: moderate LVH. mild MR< TR, and AR. small pericardial effusion #Elevated trop- likely 2/2 demand ischemia in setting of elevated BP - 0.29 --> 0.28 --> 0.26 - cont ASA #BOYER - morphine increased to 2mg q2h - continue to monitor #Nausea -reglan PRN #Possible UTI - (pyuria and RLQ tenderness). received levaquin last night. No urine cx sent - continue ceftriaxone. day 3 of abx #Possible CAP - continue ceftriaxone - f/u sputum cx #normocytic anemia - Hgb of 7.8, up from 7.6 yesterday - continue to monitor - B12: 394 - folate: 6 - ferritin: 90 - will call PCP regarding baseline Hgb #hypokalemia -K of 3 today -repleted #FEN/ppx -no fluids -K repleted -sodium controlled diet -no GI ppx -heparin 5000U TID -Vinh Dumont MD PGY1 Visit type - Emergency Visit Emergency Visit: Yes ED Registration Date: 04/02/17 Care time: The patient presented to the Emergency Department on the above date and was hospitalized for further evaluation of their emergent condition. - New Patient This patient is new to me today: Yes Date on this admission: 04/03/17 - Critical Care Critical Care patient: Yes Total Critical Care Time (in minutes): 40 Critical Care Statement: The care of this patient involved high complexity decision making to prevent further life threatening deterioration of the patient 's condition and/or to evaluate & treat vital organ system(s) failure or risk of failure.
[2017-04-03] MEDS: CHLORHEXIDINE GLUCONATE 4% CLEANSER FOR DECOLONIZATION TP SCH (22:00)
[2017-04-03] MEDS: traZODone HCL 100 MG TABLET (FP) PO SCH (23:00)
--- NOTE | 2017-04-04 01:37 | EKG ---
Test Reason : Blood Pressure : / mmHG Vent. Rate : 077 BPM Atrial Rate : 077 BPM P-R Int : 178 ms QRS Dur : 100 ms QT Int : 432 ms P-R-T Axes : 056 -03 148 degrees QTc Int : 488 ms NORMAL SINUS RHYTHM POSSIBLE LEFT ATRIAL ENLARGEMENT T WAVE ABNORMALITY, CONSIDER ANTEROLATERAL ISCHEMIA PROLONGED QT ABNORMAL ECG WHEN COMPARED WITH ECG OF 02-APR-2017 00:22, NO SIGNIFICANT CHANGE WAS FOUND Confirmed by GIRMA ZHU, ROSA MARIA ([id number]) on 04/04/2017 1:37:26 AM Referred By: Confirmed By:ROSA MARIA RAYO MD
--- NOTE | 2017-04-04 01:40 | EKG ---
Test Reason : Blood Pressure : / mmHG Vent. Rate : 091 BPM Atrial Rate : 091 BPM P-R Int : 174 ms QRS Dur : 102 ms QT Int : 384 ms P-R-T Axes : 050 -07 127 degrees QTc Int : 472 ms NORMAL SINUS RHYTHM POSSIBLE LEFT ATRIAL ENLARGEMENT PROLONGED QT ABNORMAL ECG NO PREVIOUS ECGS AVAILABLE Confirmed by GIRMA ZHU, ROSA MARIA ([id number]) on 04/04/2017 1:39:44 AM Referred By: Confirmed By:ROSA MARIA RAYO MD
[2017-04-04] MEDS ORDERED: niCARdipine HCL 25 MG/10 ML AMPUL IVPB ONE (03:26)
[2017-04-04] MEDS ORDERED: ACETAMINOPHEN 325 MG TABLET (FP) PO ONE ×2 (05:21→05:30)
[2017-04-04] MEDS ORDERED: oxyCODONE HCL 5 MG TABLET PO ONE (05:30)
[2017-04-04] MEDS: HEPARIN NA (PORCINE) 5,000 UNITS/ML 1ML VIAL SQ SCH ×4 (06:00→22:21)
[2017-04-04 06:06] LABS: SERUM IRON 38 ug/dL (27-159); TOTAL IRON BINDING CAPACITY 221 ug/dL (250-450); UIBC 183 ug/dL (131-425)
[2017-04-04] MEDS: NITROPRUSSIDE SODIUM 50,000 MCG in SODIUM CHLORIDE 248 ML IVPB SCH (06:09)
[2017-04-04 07:14] LABS: MCH 28.1 pg (25.7-33.7); MCHC 32.8 g/dl (32.0-36.0); MEAN CELL VOLUME 85.8 fl (80-96); MEAN PLT VOLUME 8.5 fl (7.5-11.1); PLATELET COUNT 144 K/MM3 (134-434); RDW 16.6 % (11.6-15.6); WHITE BLOOD COUNT 5.7 K/mm3 (4.0-10.0)
[2017-04-04 07:53] LABS: ANION GAP 9 (8-16); CALCIUM 8.8 mg/dL (8.5-10.1); CO2 28 mmol/L (21-32); CREATININE 4.5 mg/dL (0.55-1.02); GLUCOSE,RANDOM 91 mg/dL (74-106); SGOT/AST 12 U/L (15-37); SGPT/ALT 27 U/L (12-78)
[2017-04-04 07:55] LABS: ALK PHOS 59 U/L (45-117); BILIRUBIN,TOTAL 0.6 mg/dL (0.2-1.0); TOT PROT 5.8 g/dl (6.4-8.2)
--- NOTE | 2017-04-04 08:01 | PN ---
Physical Exam: SUBJECTIVE: Complaining of headache overnight. Had to be placed on cardene drip yesteday for pressures in the 180s. OBJECTIVE: Vital Signs Period Temp Pulse Resp BP Sys/Li Pulse Ox Last 24 Hr 98.2 F-98.8 F 72-114 14-23 115-182/84-119 95-95 GENERAL: The patient is awake, alert, and fully oriented, in no acute distress. HEAD: Normal with no signs of trauma. EYES: PERRL, extraocular movements intact, sclera anicteric, conjunctiva clear. No ptosis. ENT: Ears normal, nares patent, oropharynx clear without exudates, moist mucous membranes. NECK: Trachea midline, full range of motion, supple. LUNGS: Breath sounds equal, clear to auscultation bilaterally, no wheezes, no crackles, no accessory muscle use. HEART: Regular rate and rhythm, S1, S2 without murmur, rub or gallop. ABDOMEN: Soft, nontender, nondistended, normoactive bowel sounds, no guarding, no rebound, no hepatosplenomegaly, no masses. EXTREMITIES: 2+ pulses, warm, well-perfused, no edema. NEUROLOGICAL: Cranial nerves II through XII grossly intact. Normal speech, gait not observed. PSYCH: Normal mood, normal affect. SKIN: Warm, dry, normal turgor, no rashes or lesions noted Laboratory Results - last 24 hr 04/02/17 04/03/17 04/03/17 16:39 06:15 09:05 WBC RBC Hgb Hct MCV MCH MCHC RDW Plt Count MPV Sodium 142 Potassium 3.0 L Chloride 104 Carbon Dioxide 28 Anion Gap 10 BUN 26 H Creatinine 4.2 H Random Glucose 116 H Calcium 8.7 Phosphorus 3.5 Magnesium 2.4 Iron TIBC Iron Saturation Ferritin 89.029 Vitamin B12 394 Cancelled Serum Folate 6 Cancelled Urine Protein 93 Urine Creatinine 69.2 04/03/17 04/03/17 04/03/17 09:05 09:05 13:45 WBC RBC Hgb Hct MCV MCH MCHC RDW Plt Count MPV Sodium Potassium Chloride Carbon Dioxide Anion Gap BUN Creatinine Random Glucose Calcium Phosphorus Magnesium Iron 38 TIBC 221 L Iron Saturation 17 Ferritin Cancelled Vitamin B12 Serum Folate Urine Protein Urine Creatinine 160.0 04/03/17 04/04/17 14:40 06:00 WBC 5.7 D RBC 2.71 L Hgb 7.6 L Hct 23.3 L MCV 85.8 MCH 28.1 MCHC 32.8 RDW 16.6 H Plt Count 144 MPV 8.5 Sodium 139 Potassium 3.1 L Chloride 101 Carbon Dioxide 31 Anion Gap 7 L BUN 26 H Creatinine 4.3 H Random Glucose 97 Calcium 8.6 Phosphorus Magnesium Iron TIBC Iron Saturation Ferritin Vitamin B12 Serum Folate Urine Protein Urine Creatinine Active Medications Generic Name Dose Route Start Last Admin Trade Name Rita PRN Reason Stop Dose Admin Amlodipine Besylate 10 mg 04/02/17 10:00 04/03/17 10:34 Norvasc - PO 10 mg DAILY BRET Administration Aspirin 81 mg 04/03/17 10:00 04/03/17 10:32 Ecotrin - PO 81 mg DAILY BRET Administration Chlorhexidine Gluconate 1 applic 04/02/17 22:00 04/03/17 22:00 Hibiclens For Decolonization - TP 1 applic HS BRET Administration Clonidine HCl 0.3 mg 04/03/17 10:00 04/03/17 09:36 Catapres Tts Patch - TD 0.3 mg Mo@1000 BRET Administration Doxazosin Mesylate 8 mg 04/02/17 10:00 04/03/17 09:41 Cardura - PO 8 mg DAILY BRET Administration Furosemide 20 mg 04/03/17 10:00 04/03/17 11:25 Lasix - PO 20 mg DAILY BRET Administration Heparin Sodium (Porcine) 5,000 unit 04/02/17 06:00 04/04/17 06:08 Heparin - SQ 5,000 unit TID BRET Administration Sodium Nitroprusside 50,000 250 mls @ 11.43 mls/hr 04/02/17 04:15 04/04/17 06 :09 mcg/ Sodium Chloride IVPB Not Given TITR BRET Protocol 0.5 MCG/KG/MIN CEFTRIAXONE 1 G/50 ML PREMIX 50 mls @ 100 mls/hr 04/02/17 09:00 04/03/17 09: 47 Ceftriaxone 1 Gm-D5w Bag IVPB 100 mls/hr DAILY BRET Administration Nicardipine HCl 25 mg/ 250 mls @ 25 mls/hr 04/03/17 15:00 04/03/17 15:28 Dextrose IVPB 2.5 mg/hr TITR BRET 25 mls/hr Protocol Administration 2.5 MG/HR Labetalol HCl 600 mg 04/02/17 10:00 04/03/17 21:49 Normodyne - PO 600 mg BID BRET Administration Metoclopramide HCl 10 mg 04/03/17 14:58 Reglan Injection - IVPUSH Q8H PRN NAUSEA AND/OR VOMITING Minoxidil 2.5 mg 04/02/17 10:00 04/03/17 09:41 Lonitin - PO 2.5 mg DAILY BRET Administration Mupirocin 1 applic 04/02/17 10:00 04/03/17 21:49 Bactroban Ointment (For Decolonization) - NS 04/07/17 09:59 1 applic BID BRET Administration Spironolactone 50 mg 04/02/17 10:00 04/03/17 10:33 Aldactone - PO 50 mg DAILY BRET Administration Trazodone HCl 100 mg 04/03/17 22:00 04/03/17 23:00 Desyrel - PO 100 mg HS BRET Administration ASSESSMENT/PLAN: A/ 36 y/o woman with h/o hyperaldosteronism, difficult to control HTN , CKD no with HTN emergency in setting of inability to take PO meds, improved on cardene drip but being weaned off because of toleration of PO meds. Neuro: Headache: Originalyl believed to be secondayr to nitroprusside drip but still there despite cessation of drip - Will DC nitro drip - Carotid US not demonstrating any significant stenosis - IV Tylenol hasn't helped so will switch to tylenol 3 per patient's request. CV: HTN emergency: Difficult to control HTN with presenting pressures in 200s and visual symptoms with headache, No ICH on prelim CT of head. Serial trop peaked at 0.29 and likely demand ischemia, atyp cp not c/w ACS, EKG demonstrating signif LVH and no ischemic changes. CT and CXR not demonstrating widened mediastinum per cardiology. Per cards: Consideration of adrenaloma resection as outpatient, patient is linked in to htn specialist. Echo 04/03 demonstrating mild TR, AR, LVH and small pericardial effusion - Had to be placed on cardene drip but will titrate off. - Continue PO home meds (minoxidil, norvasc, labetalol, and doxazosin) , BP goal SBP 160s - Cards and PMD stopped lasix because of creatinine increase - Holding aldactone per above but renal and cards will advise. - Cards note mentions clonidine patch cessation but this should be tapered as sudden cessation could cause withdrawl. - Can possibly increase hydral and labetalol if patient not tolerating. - Can use cardene drip if needed PULM: PNA: RUL infiltrate on Chest CT. - Flu negative - Continue ceftriaxone Renal : MADISON on CKD (pt. states 3.8 is new baselien cr). Likely due to poorly controlled HTN. FeUrea 52%. indicating possible intrinsic etiology. kidneys with no hydro on US . - Renal U/S not showing hydro - trend BUN/Cr - Renal onboard for worsening renal function - K repletion will be enforced as patient was previously nauseous UTI ( pyuria and RLQ tenderness). - Received levaquin in ER. - Continue Ceftriaxone - U. Cx negative Heme: anemia, unk if chronic -f/u with PMD -anemia workup if not chronic FEN: Replete K PRN Full diet Prophylaxis: Hep subq Eating Dispo: Visit type - Emergency Visit Emergency Visit: No - New Patient This patient is new to me today: No - Critical Care Critical Care patient: No - Discharge Referral Referred to [facility] No
[2017-04-04] MEDS ORDERED: PT OWN MED DRAWER 7, Y5N ONE ×2 (08:29→21:49)
[2017-04-04] MEDS: SPIRONOLACTONE 25 MG TABLET (FP) PO SCH (09:08)
[2017-04-04] MEDS: ASPIRIN COATED 81 MG TABLET.EC PO SCH (09:09)
[2017-04-04] MEDS: FUROSEMIDE 20 MG TABLET (FP) PO SCH (09:09)
[2017-04-04] MEDS: amLODIPine BESYLATE 10 MG TABLET (FP) PO SCH (09:10)
[2017-04-04] MEDS: LABETALOL HCL 200 MG TABLET (FP) PO SCH ×2 (09:10→22:22)
[2017-04-04] MEDS: MUPIROCIN 2% TOPICAL OINTMENT FOR DECOLONIZATION NS SCH ×2 (09:11→22:22)
[2017-04-04] MEDS: CEFTRIAXONE 1 G/50 ML PREMIX 50 ML IVPB SCH (09:11)
[2017-04-04] MEDS ORDERED: POTASSIUM CHLORIDE TABS 20 MEQ TABLET.ER (FP) PO ONE (10:00)
[2017-04-04] MEDS: DOXAZOSIN MESYLATE 4 MG TABLET PO SCH (10:32)
[2017-04-04] MEDS: MINOXIDIL 2.5 MG TABLET PO SCH (10:32)
[2017-04-04] MEDS ORDERED: LACTULOSE 20 GM/30 ML UDC (FOR ORAL USE ONLY) PO ONE (10:44)
[2017-04-04] MEDS: SENNOSIDES 8.6MG TABLET (FP) PO SCH ×2 (11:07→22:22)
[2017-04-04] MEDS: CODEINE SO4 30 MG TABLET PO PRN ×2 (11:21→22:22)
[2017-04-04 11:33] LABS: MAGNESIUM 2.2 mg/dL (1.8-2.4); PHOSPHOROUS 3.7 mg/dL (2.5-4.9)
--- NOTE | 2017-04-04 11:35 | PN ---
Progress Note (short form) - Note Progress Note: Chief Complaint: htn emergency History of Present Illness: Yesterday transitioned from nipride drip to nicardipine drip. Cr continues to rise. renal consullted. lasix and aldactone stopped after am dose today. Echo report reviewed. chest ct reviewed. Was able to tolerate po meds yesterday. no cp, palps, dizziness, sob. + h/a. ex cigs Current Medications Amlodipine Besylate (Norvasc -) 10 mg PO DAILY [facility] Last Admin: 04/04/17 09:10 Dose: 10 mg Aspirin (Ecotrin -) 81 mg PO DAILY [facility] Last Admin: 04/04/17 09:09 Dose: 81 mg Chlorhexidine Gluconate (Hibiclens For Decolonization -) 1 applic TP HS [facility] Last Admin: 04/03/17 22:00 Dose: 1 applic Clonidine HCl (Catapres Tts Patch -) 0.3 mg TD Mo@1000 [facility] Last Admin: 04/03/17 09:36 Dose: 0.3 mg Codeine Sulfate (Codeine Sulfate -) 30 mg PO Q6H PRN PRN Reason: PAIN Docusate Sodium (Colace -) 100 mg PO TID [facility] Doxazosin Mesylate (Cardura -) 8 mg PO DAILY [facility] Last Admin: 04/04/17 10:32 Dose: 8 mg Heparin Sodium (Porcine) (Heparin -) 5,000 unit SQ TID [facility] Last Admin: 04/04/17 06:08 Dose: 5,000 unit Sodium Nitroprusside 50,000 (mcg/ Sodium Chloride) 250 mls @ 11.43 mls/hr IVPB TITR BRET; 0.5 MCG/KG/MIN PRN Reason: Protocol Last Admin: 04/04/17 06:09 Dose: Not Given CEFTRIAXONE 1 G/50 ML PREMIX (Ceftriaxone 1 Gm-D5w Bag) 50 mls @ 100 mls/hr IVPB DAILY [facility] Last Admin: 04/04/17 09:11 Dose: 100 mls/hr Nicardipine HCl 25 mg/ (Dextrose) 250 mls @ 25 mls/hr IVPB TITR BRET; 2.5 MG/HR PRN Reason: Protocol Last Admin: 04/03/17 15:28 Dose: 2.5 mg/hr, 25 mls/hr Labetalol HCl (Normodyne -) 600 mg PO BID [facility] Last Admin: 04/04/17 09:10 Dose: 600 mg Metoclopramide HCl (Reglan Injection -) 10 mg IVPUSH Q8H PRN PRN Reason: NAUSEA AND/OR VOMITING Minoxidil (Lonitin -) 2.5 mg PO DAILY [facility] Last Admin: 04/04/17 10:32 Dose: 2.5 mg Mupirocin (Bactroban Ointment (For Decolonization) -) 1 applic NS BID [facility] Stop: 04/07/17 09:59 Last Admin: 04/04/17 09:11 Dose: 1 applic Polyethylene Glycol (Miralax (For Daily Use) -) 17 gm PO DAILY [facility] Senna (Senna -) 1 tab PO BID [facility] Last Admin: 04/04/17 11:07 Dose: 1 tab Trazodone HCl (Desyrel -) 100 mg PO HS [facility] Last Admin: 04/03/17 23:00 Dose: 100 mg - Objective Vital Signs: Vital Signs - 24 hr 04/03/17 04/03/17 04/03/17 12:00 14:00 15:00 Temperature 98.6 F Pulse Rate 98 H 88 82 Respiratory 15 16 19 Rate Blood Pressure 167/111 157/106 161/115 O2 Sat by Pulse Oximetry (%) 04/03/17 04/03/17 04/03/17 15:28 17:00 18:00 Temperature 98.8 F Pulse Rate 82 82 Respiratory 16 14 Rate Blood Pressure 161/115 141/96 145/102 O2 Sat by Pulse Oximetry (%) 04/03/17 04/03/17 04/03/17 18:42 19:07 20:00 Temperature Pulse Rate 88 85 82 Respiratory 14 18 Rate Blood Pressure 157/106 152/106 145/97 O2 Sat by Pulse Oximetry (%) 04/03/17 04/03/17 04/03/17 20:52 21:00 22:00 Temperature Pulse Rate 86 88 Respiratory 18 18 16 Rate Blood Pressure 155/98 138/90 O2 Sat by Pulse 95 Oximetry (%) 04/04/17 04/04/17 04/04/17 00:00 02:00 04:00 Temperature 98.2 F Pulse Rate 74 79 79 Respiratory 16 18 18 Rate Blood Pressure 115/84 119/90 136/89 O2 Sat by Pulse Oximetry (%) 04/04/17 04/04/17 04/04/17 05:00 06:00 08:00 Temperature 98.6 F Pulse Rate 72 76 80 Respiratory 18 18 14 Rate Blood Pressure 146/104 146/104 138/97 O2 Sat by Pulse Oximetry (%) 04/04/17 04/04/17 04/04/17 09:27 10:00 10:38 Temperature Pulse Rate 72 74 Respiratory 15 15 Rate Blood Pressure 139/97 149/100 152/107 O2 Sat by Pulse Oximetry (%) 04/04/17 10:43 Temperature 98.4 F Pulse Rate 76 Respiratory 15 Rate Blood Pressure 152/107 O2 Sat by Pulse Oximetry (%) Intake & Output 04/02/17 04/03/17 04/04/17 04/05/17 07:59 07:59 07:59 07:59 Intake Total 1660 2697 Output Total 975 450 Balance 685 2247 Weight 176 lb 5.917 oz 177 lb 0.499 oz 175 lb 6.4 oz Constitutional: Yes: Well Nourished, No Distress, Eyes: No: Sclera Icterus HENT: No: Nasal Congestion Neck: No: Decreased ROM Respiratory: Yes: CTA Bilaterally (anteriorly). No: Accessory Muscle Use, Rales , Wheezes Gastrointestinal: Yes: Normal Bowel Sounds. No: Distention, Hepatomegaly, Palpable Mass, Tenderness Cardiovascular: Yes: Regular Rate and Rhythm JVD: No Carotid Bruit: No PMI: Non-Displaced Heart Sounds: Yes: S1, S2. No: Gallop Murmur: 2/6 systolic murmur at sternal border. No: Diastolic Murmur Musculoskeletal: Yes: Other (No kyphosis) Extremities: No: Cold Edema: Yes (1+ pretib) Peripheral Pulses: 2+ Left Carotid, 2+ Right Carotid, 2+ Left Doralis Pedis, 2+ Right Dorsalis Pedis Integumentary: No: Jaundice Neurological: Yes: Alert, Oriented (x3) Psychiatric: No: Agitated Labs: CBC, BMP 04/04/17 06:00 04/04/17 06:00 Laboratory Tests 04/02/17 04/04/17 00:00 06:00 Total Bilirubin 0.6 AST 12 L D ALT 27 Alkaline Phosphatase 59 Albumin 3.0 L Urine HCG, Qual Negative tele: SR ECG 04/02/2017 : NSR at 77/min with LAE, LVH with assctd repol abn (no old) Echo here 04/03: mod LVH (concentric); nl LVSF. nl RV. nl LA. mild AI/MR/TR. normal aortic root. small effusion chest CT: Mixed consolidative and groundglass opacity in RUL c/w pna. Small bibasilar layering pleural effusions. Ascending aorta 4.1 cm. PA dilation ( 3.6 cm). Liver findings noted. Assessment/Plan 36 yo female with secondary HTN (hyperaldo) in [address] Luigi Dunham and hypertensive specialist Dr Vargas ([facility]) admitted with viral like illness and hypertensive crisis. Concerns for cardiomegally on CXR hypertensive emergency, known Conn syndrome/hyperaldo - Per report, tolerated aldactone 100 mg qd in past, dose was decr'd to 50 in plans to wean down and do adrenal vein sampling per pt, but this was ultimately deferred -initially bp 250/150 here with cp, vision changes -Nipride drip transitioned to nicardipine drip 04/03. Was able to tolerate PO meds starting 04/03: home spirono (50 qd), amlodipine, clonidine patch, labetalol, doxzosin, lasix with improvement in bp's but still requiring nicardipine drip 04/04. . -04/04: lasix and aldactone stopped today by pmd in response to rising creatinine. Will discuss with renal regarding safety of continuing aldactone and uptitration of po regimen. Patient still with severe headache. pain control per pmd. -bp targets re: usual htn emergency protocol -consideration of adrenaloma resection as outpatient, patient is linked in to htn specialist (+) Troponin, atyp cp -trop 0.2 x3, not c/w ACS = secondary to htn emergency with underlying signif LVH -ecg not ischemic -initial sx's of nonexertional crampy cp likely related to high bp +/- anxiety-- doubt ACS here. sx's resolved -did not have sx's suggestive of aorta dissection and they resolved promptly on their own. Mild ao dilation, but no flap suspected on CT (non-contrast), CXR reviewed by Dr. Madrigal: no widened mediastinum. Mild asc ao dilation - On BB. BP control as above. CKD vs MADISON component: -creat 4's here, no priors -per critical care +/- renal anemia: -? baseline, appears chronic. Will d/w renal. -defer to hospitalist, crit care est time in data review, pt exam, and formulating mgmt plan of potentially life threatening issues = 35 min
[2017-04-04] MEDS: POLYETHYLENE GLYCOL 3350 119 GM BTL PO SCH ×2 (13:02→18:46)
[2017-04-04] MEDS: DOCUSATE SODIUM 100 MG CAPSULE (FP) PO SCH ×2 (13:03→22:22)
--- NOTE | 2017-04-04 13:17 | CONSULT ---
Consultation: REQUESTING PROVIDER: CONSULT REQUEST: We have been asked to medically evaluate this patient for madison on ckd . 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 She describes preceding symptoms of malaise and cough productive of green sputum x 1 week. Due to n/v she has been unable to keep down her HTN meds x 2 days. She reports decreased urination , having urinated only once yesterday and once today. Admitted with BP 250/150, placed on Ntg gtt then Nitroprusside gtt, which lowered BP to systolic 160's. now on Cardene drip @ 1.25 and home meds norvasc 10 d, labetalol 600 bid and conidine patch 0.3 TD. Home aldactone 50 d and lasix 10 d held due to worsening renal function. CT head was negative. Admission creat of 4.1 worsened to 4.5, GFR worsened from 12 to 10.9. BNP was 64K. History is significant for similar episode of HTN emergency due to medication noncompliance in setting of illness, with creat 3.8 at [facility] this summer, which improved to about 2.3. She does have a cargo bracer Dr Valdivia at the [place] who has not done a renal biopsy. She also sees an curbstone setter and a HTN specialist at [facility]. She has and MRI 2 w ago for evaluation of adrenals which showed nodularity in R adrenal. Patient is currently complaining of frontal h/a 09/24 REVIEW OF SYSTEMS: CONSTITUTIONAL: Absent: fever, chills, weight change HEENT: Absent: rhinorrhea, nasal congestion, throat pain, difficulty swallowing CARDIOVASCULAR: Absent: chest pain, syncope, palpitations, peripheral edema RESPIRATORY: Absent: cough, shortness of breath, dyspnea with exertion, hemoptysis GASTROINTESTINAL: Absent: abdominal pain, abdominal distension, diarrhea, melena, hematochezia GENITOURINARY: Absent: dysuria, frequency, urgency, flank pain MUSCULOSKELETAL: Absent: myalgia, arthralgia, joint swelling, back pain, neck pain SKIN: Absent: rash, itching, pallor HEMATOLOGIC/IMMUNOLOGIC: Absent: easy bleeding, easy bruising, lymphadenopathy, frequent infections ENDOCRINE: Absent: unexplained weight gain, unexplained weight loss, heat intolerance, cold intolerance NEUROLOGIC: Absent: headache, focal weakness or paresthesias PSYCHIATRIC: Absent: anxiety, depression PHYSICAL EXAMINATION Vital Signs - 24 hr 04/03/17 04/03/17 04/03/17 14:00 15:00 15:28 Temperature 98.6 F Pulse Rate 88 82 82 Respiratory 16 19 Rate Blood Pressure 157/106 161/115 161/115 O2 Sat by Pulse Oximetry (%) 04/03/17 04/03/17 04/03/17 17:00 18:00 18:42 Temperature 98.8 F Pulse Rate 82 88 Respiratory 16 14 Rate Blood Pressure 141/96 145/102 157/106 O2 Sat by Pulse Oximetry (%) 04/03/17 04/03/17 04/03/17 19:07 20:00 20:52 Temperature Pulse Rate 85 82 Respiratory 14 18 18 Rate Blood Pressure 152/106 145/97 O2 Sat by Pulse 95 Oximetry (%) 04/03/17 04/03/17 04/04/17 21:00 22:00 00:00 Temperature Pulse Rate 86 88 74 Respiratory 18 16 16 Rate Blood Pressure 155/98 138/90 115/84 O2 Sat by Pulse Oximetry (%) 04/04/17 04/04/17 04/04/17 02:00 04:00 05:00 Temperature 98.2 F Pulse Rate 79 79 72 Respiratory 18 18 18 Rate Blood Pressure 119/90 136/89 146/104 O2 Sat by Pulse Oximetry (%) 04/04/17 04/04/17 04/04/17 06:00 08:00 09:27 Temperature 98.6 F Pulse Rate 76 80 72 Respiratory 18 14 15 Rate Blood Pressure 146/104 138/97 139/97 O2 Sat by Pulse Oximetry (%) 04/04/17 04/04/17 04/04/17 10:00 10:38 10:43 Temperature 98.4 F Pulse Rate 74 76 Respiratory 15 15 Rate Blood Pressure 149/100 152/107 152/107 O2 Sat by Pulse Oximetry (%) 04/04/17 04/04/17 04/04/17 11:00 12:00 13:00 Temperature Pulse Rate 74 76 72 Respiratory 16 16 16 Rate Blood Pressure 147/105 143/108 126/100 O2 Sat by Pulse Oximetry (%) GENERAL: Awake, alert, and fully oriented, in no acute distress. HEAD: Normal with no signs of trauma. EYES: Pupils equal, round and reactive to light, extraocular movements intact, sclera anicteric, conjunctiva clear. No lid lag. EARS, NOSE, THROAT: Moist mucous membranes. NECK: supple without JVD LUNGS: Breath sounds equal, clear to auscultation bilaterally. No wheezes, and no crackles. No accessory muscle use. HEART: Regular rate and rhythm, normal S1 and S2 ABDOMEN: Soft, nontender, not distended, normoactive bowel sounds, no guarding, no rebound, no masses. MUSCULOSKELETAL: No CVA tenderness. UPPER EXTREMITIES: 2+ pulses, warm, well-perfused. No cyanosis. No clubbing. No peripheral edema. LOWER EXTREMITIES: 2+ pulses, warm, well-perfused. No calf tenderness. No peripheral edema. NEUROLOGICAL: Cranial nerves II-XII grossly intact. Normal speech. PSYCHIATRIC: Cooperative. Good eye contact. Appropriate mood and affect. SKIN: Warm, dry Laboratory Results - last 24 hr 04/03/17 04/03/17 04/03/17 09:05 13:45 14:40 WBC RBC Hgb Hct MCV MCH MCHC RDW Plt Count MPV Sodium 139 Potassium 3.1 L Chloride 101 Carbon Dioxide 31 Anion Gap 7 L BUN 26 H Creatinine 4.3 H Creat Clearance w eGFR Random Glucose 97 Calcium 8.6 Phosphorus Magnesium Iron 38 TIBC 221 L Iron Saturation 17 Total Bilirubin AST ALT Alkaline Phosphatase Total Protein Albumin Urine Creatinine 160.0 04/04/17 04/04/17 04/04/17 06:00 06:00 06:00 WBC 5.7 D RBC 2.71 L Hgb 7.6 L Hct 23.3 L MCV 85.8 MCH 28.1 MCHC 32.8 RDW 16.6 H Plt Count 144 MPV 8.5 Sodium 138 Potassium 3.3 L Chloride 101 Carbon Dioxide 28 Anion Gap 9 BUN 28 H Creatinine 4.5 H Creat Clearance w eGFR 10.94 Random Glucose 91 Calcium 8.8 Phosphorus 3.7 Cancelled Magnesium 2.2 Cancelled Iron TIBC Iron Saturation Total Bilirubin 0.6 AST 12 L D ALT 27 Alkaline Phosphatase 59 Total Protein 5.8 L Albumin 3.0 L Urine Creatinine Active Medications Generic Name Dose Route Start Last Admin Trade Name Rita PRN Reason Stop Dose Admin Amlodipine Besylate 10 mg 04/02/17 10:00 04/04/17 09:10 Norvasc - PO 10 mg DAILY BRET Administration Aspirin 81 mg 04/03/17 10:00 04/04/17 09:09 Ecotrin - PO 81 mg DAILY BRET Administration Chlorhexidine Gluconate 1 applic 04/02/17 22:00 04/03/17 22:00 Hibiclens For Decolonization - TP 1 applic HS BRET Administration Clonidine HCl 0.3 mg 04/03/17 10:00 04/03/17 09:36 Catapres Tts Patch - TD 0.3 mg Mo@1000 BRET Administration Codeine Sulfate 30 mg 04/04/17 11:03 04/04/17 11:21 Codeine Sulfate - PO 30 mg Q6H PRN Administration PAIN Docusate Sodium 100 mg 04/04/17 14:00 04/04/17 13:03 Colace - PO Not Given TID BRET Doxazosin Mesylate 8 mg 04/02/17 10:00 04/04/17 10:32 Cardura - PO 8 mg DAILY [facility]RET Administration Heparin Sodium (Porcine) 5,000 unit 04/02/17 06:00 04/04/17 13:02 Heparin - SQ 5,000 unit TID [facility] Administration Sodium Nitroprusside 50,000 250 mls @ 11.43 mls/hr 04/02/17 04:15 04/04/17 06 :09 mcg/ Sodium Chloride IVPB Not Given TITR BRET Protocol 0.5 MCG/KG/MIN CEFTRIAXONE 1 G/50 ML PREMIX 50 mls @ 100 mls/hr 04/02/17 09:00 04/04/17 09: 11 Ceftriaxone 1 Gm-D5w Bag IVPB 100 mls/hr DAILY [facility]RET Administration Nicardipine HCl 25 mg/ 250 mls @ 25 mls/hr 04/03/17 15:00 04/03/17 15:28 Dextrose IVPB 2.5 mg/hr TITR BRET 25 mls/hr Protocol Administration 2.5 MG/HR Labetalol HCl 600 mg 04/02/17 10:00 04/04/17 09:10 Normodyne - PO 600 mg BID BRET Administration Metoclopramide HCl 10 mg 04/03/17 14:58 04/04/17 12:51 Reglan Injection - IVPUSH 10 mg Q8H PRN Administration NAUSEA AND/OR VOMITING Minoxidil 2.5 mg 04/02/17 10:00 04/04/17 10:32 Lonitin - PO 2.5 mg DAILY BRET Administration Mupirocin 1 applic 04/02/17 10:00 04/04/17 09:11 Bactroban Ointment (For Decolonization) - NS 04/07/17 09:59 1 applic BID [facility]RET Administration Polyethylene Glycol 17 gm 04/04/17 10:45 04/04/17 13:02 Miralax (For Daily Use) - PO Not Given DAILY [facility]RET Senna 1 tab 04/04/17 10:45 04/04/17 11:07 Senna - PO 1 tab BID BRET Administration Trazodone HCl 100 mg 04/03/17 22:00 04/03/17 23:00 Desyrel - PO 100 mg HS BRET Administration ASSESSMENT/PLAN: This is a 36 yo F with a PMH of poorly controlled HTN (on 4 agents), 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 MADISON on CKD -bun/creat 28/4.5 baseline of 2 -hypertensive vs other etiology -renal US shown echogenic kidneys suggestive of CKD component and a r renal cyst 2.1x1.5 cm. -kidney biopsy recommended outpatient once BP stabilized -trend renal function, avoid nephrotoxic agents -obrain records from [facility] HTN emergency -BP goals 160 mmHg systolic -add aldactone to norvasc 10 d, labetalol 600 bid and conidine patch 0.3 TD. Hold lasix -cardiology recommendations appreciated Conn Syndrome -tehre is little evidence of benefit with subtotal adrenalectomy -medical management recommended. -patient should be on aldactone. Will resume lasix when creat improves. Hepatic cyst -US shows complex hepatic lesion 2.2x1.5 cm -outpatient f/u -will obtain abd MRI results from [facility] Dispo: We will continue to follow the patient. Thank you for this consultative opportunity. Problem List - Problems (1) Hyperaldosteronism Code(s): E26.9 - HYPERALDOSTERONISM, UNSPECIFIED (2) CKD (chronic kidney disease) Code(s): N18.9 - CHRONIC KIDNEY DISEASE, UNSPECIFIED (3) Acute renal failure Code(s): N17.9 - ACUTE KIDNEY FAILURE, UNSPECIFIED (4) Anemia Code(s): D64.9 - ANEMIA, UNSPECIFIED (5) Headache Code(s): R51 - HEADACHE (6) Hypertensive cardiomyopathy Code(s): I11.9 - HYPERTENSIVE HEART DISEASE WITHOUT HEART FAILURE; I43 - CARDIOMYOPATHY IN DISEASES CLASSIFIED ELSEWHERE (7) Hypertensive emergency Code(s): I16.1 - HYPERTENSIVE EMERGENCY (8) Nausea & vomiting Code(s): R11.2 - NAUSEA WITH VOMITING, UNSPECIFIED (9) Adrenal adenoma Code(s): D35.00 - BENIGN NEOPLASM OF UNSPECIFIED ADRENAL GLAND Visit type - Emergency Visit Emergency Visit: Yes ED Registration Date: 04/02/17 Care time: The patient presented to the Emergency Department on the above date and was hospitalized for further evaluation of their emergent condition. - New Patient This patient is new to me today: Yes Date on this admission: 04/04/17 - Critical Care Critical Care patient: Yes Total Critical Care Time (in minutes): 35 Critical Care Statement: The care of this patient involved high complexity decision making to prevent further life threatening deterioration of the patient 's condition and/or to evaluate & treat vital organ system(s) failure or risk of failure.
--- NOTE | 2017-04-04 13:34 | PN ---
Teaching Attending Note Name of Resident: Lynne Yates ATTENDING PHYSICIAN STATEMENT I saw and evaluated the patient. I reviewed the resident's note and discussed the case with the resident. I agree with the resident's findings and plan as documented. SUBJECTIVE: Pt seen and examined in the ICU. Remains on nicardipine gtt. Less headache, nausea. Denies shortness of breath or chest pain. OBJECTIVE: Last Vital Signs Temp Pulse Resp BP Pulse Ox 98.4 F 72 16 126/100 95 04/04/17 10:43 04/04/17 13:00 04/04/17 13:00 04/04/17 13:00 04/03/17 20:52 Intake & Output 04/01/17 04/02/17 04/03/17 04/04/17 23:59 23:59 23:59 23:59 Intake Total 1060 2822 475 Output Total 975 450 Balance 85 2372 475 Weight 168 lb 176 lb 5.917 oz 177 lb 0.499 oz 175 lb 6.4 oz Gen: NAD at rest Heart: RRR Lung: decreased breath sounds at the bases Abd: soft, nontender Ext: no edema CBC, BMP 04/04/17 06:00 04/04/17 06:00 Active Medications Amlodipine Besylate (Norvasc -) 10 mg PO DAILY [facility] Last Admin: 04/04/17 09:10 Dose: 10 mg Aspirin (Ecotrin -) 81 mg PO DAILY [facility] Last Admin: 04/04/17 09:09 Dose: 81 mg Chlorhexidine Gluconate (Hibiclens For Decolonization -) 1 applic TP HS [facility] Last Admin: 04/03/17 22:00 Dose: 1 applic Clonidine HCl (Catapres Tts Patch -) 0.3 mg TD Mo@1000 [facility] Last Admin: 04/03/17 09:36 Dose: 0.3 mg Codeine Sulfate (Codeine Sulfate -) 30 mg PO Q6H PRN PRN Reason: PAIN Last Admin: 04/04/17 11:21 Dose: 30 mg Docusate Sodium (Colace -) 100 mg PO TID [facility] Last Admin: 04/04/17 13:03 Dose: Not Given Doxazosin Mesylate (Cardura -) 8 mg PO DAILY [facility] Last Admin: 04/04/17 10:32 Dose: 8 mg Heparin Sodium (Porcine) (Heparin -) 5,000 unit SQ TID [facility] Last Admin: 04/04/17 13:02 Dose: 5,000 unit Sodium Nitroprusside 50,000 (mcg/ Sodium Chloride) 250 mls @ 11.43 mls/hr IVPB TITR BRET; 0.5 MCG/KG/MIN PRN Reason: Protocol Last Admin: 04/04/17 06:09 Dose: Not Given CEFTRIAXONE 1 G/50 ML PREMIX (Ceftriaxone 1 Gm-D5w Bag) 50 mls @ 100 mls/hr IVPB DAILY [facility] Last Admin: 04/04/17 09:11 Dose: 100 mls/hr Nicardipine HCl 25 mg/ (Dextrose) 250 mls @ 25 mls/hr IVPB TITR BRET; 2.5 MG/HR PRN Reason: Protocol Last Admin: 04/03/17 15:28 Dose: 2.5 mg/hr, 25 mls/hr Labetalol HCl (Normodyne -) 600 mg PO BID [facility] Last Admin: 04/04/17 09:10 Dose: 600 mg Metoclopramide HCl (Reglan Injection -) 10 mg IVPUSH Q8H PRN PRN Reason: NAUSEA AND/OR VOMITING Last Admin: 04/04/17 12:51 Dose: 10 mg Minoxidil (Lonitin -) 2.5 mg PO DAILY [facility] Last Admin: 04/04/17 10:32 Dose: 2.5 mg Mupirocin (Bactroban Ointment (For Decolonization) -) 1 applic NS BID [facility] Stop: 04/07/17 09:59 Last Admin: 04/04/17 09:11 Dose: 1 applic Polyethylene Glycol (Miralax (For Daily Use) -) 17 gm PO DAILY [facility] Last Admin: 04/04/17 13:02 Dose: Not Given Senna (Senna -) 1 tab PO BID [facility] Last Admin: 04/04/17 11:07 Dose: 1 tab Trazodone HCl (Desyrel -) 100 mg PO HS [facility] Last Admin: 04/03/17 23:00 Dose: 100 mg ASSESSMENT AND PLAN: Hypertensive Emergency +Troponins likely demand ischemia Acute on Chronic Renal Failure Hyperaldosteronism r/o Pneumonia - BP control with PO meds, can increase labetalol to TID - taper off cardene gtt - continue antibiotics - f/u cultures - monitor urine output, creatinine, her baseline creatinine is around 2.6 - replete lytes - PO as tolerated - DVT prophylaxis - continue ICU monitoring while on cardene gtt critical care time spent in reviewing chart, evaluating patient and formulating plan 35 min
--- NOTE | 2017-04-04 15:25 | PN ---
Teaching Attending Note Name of Resident: Sonia Burk (Nephrology) ATTENDING PHYSICIAN STATEMENT I saw and evaluated the patient. I reviewed the resident's note and discussed the case with the resident. I agree with the resident's findings and plan as documented. Nephrology Please see note written by resident. Pt is a 36 year old female with pmhx of CKD and HTN who is admitted with hypertensive emergency. She missed her medication for a few days. She is now in the ICU. She says she feels better today. Her renal function has been worsening. PMHx conn syndrom/hyperaldo htn ckd anemia ros headache improved family hx denies social hx denies Current Medications Generic Name Dose Route Start Last Admin Trade Name Freq PRN Reason Stop Dose Admin Amlodipine Besylate 10 mg 04/02/17 10:00 04/04/17 09:10 Norvasc - PO 10 mg DAILY BRET Administration Aspirin 81 mg 04/03/17 10:00 04/04/17 09:09 Ecotrin - PO 81 mg DAILY BRET Administration Chlorhexidine Gluconate 1 applic 04/02/17 22:00 04/03/17 22:00 Hibiclens For Decolonization - TP 1 applic HS BRET Administration Clonidine HCl 0.3 mg 04/03/17 10:00 04/03/17 09:36 Catapres Tts Patch - TD 0.3 mg Mo@1000 BRET Administration Codeine Sulfate 30 mg 04/04/17 11:03 04/04/17 11:21 Codeine Sulfate - PO 30 mg Q6H PRN Administration PAIN Docusate Sodium 100 mg 04/04/17 14:00 04/04/17 13:03 Colace - PO Not Given TID BRET Doxazosin Mesylate 8 mg 04/02/17 10:00 04/04/17 10:32 Cardura - PO 8 mg DAILY BRET Administration Heparin Sodium (Porcine) 5,000 unit 04/02/17 06:00 04/04/17 13:02 Heparin - SQ 5,000 unit TID BRET Administration Sodium Nitroprusside 50,000 250 mls @ 11.43 mls/hr 04/02/17 04:15 04/04/17 06 :09 mcg/ Sodium Chloride IVPB Not Given TITR BRET Protocol 0.5 MCG/KG/MIN CEFTRIAXONE 1 G/50 ML PREMIX 50 mls @ 100 mls/hr 04/02/17 09:00 04/04/17 09: 11 Ceftriaxone 1 Gm-D5w Bag IVPB 100 mls/hr DAILY BRET Administration Labetalol HCl 600 mg 04/02/17 10:00 04/04/17 09:10 Normodyne - PO 600 mg BID BRET Administration Metoclopramide HCl 10 mg 04/03/17 14:58 04/04/17 12:51 Reglan Injection - IVPUSH 10 mg Q8H PRN Administration NAUSEA AND/OR VOMITING Minoxidil 2.5 mg 04/02/17 10:00 04/04/17 10:32 Lonitin - PO 2.5 mg DAILY BRET Administration Mupirocin 1 applic 04/02/17 10:00 04/04/17 09:11 Bactroban Ointment (For Decolonization) - NS 04/07/17 09:59 1 applic BID BRET Administration Polyethylene Glycol 17 gm 04/04/17 10:45 04/04/17 13:02 Miralax (For Daily Use) - PO Not Given DAILY BRET Senna 1 tab 04/04/17 10:45 04/04/17 11:07 Senna - PO 1 tab BID BRET Administration Trazodone HCl 100 mg 04/03/17 22:00 04/03/17 23:00 Desyrel - PO 100 mg HS BRET Administration Last Vital Signs Temp Pulse Resp BP Pulse Ox 98.4 F 74 16 136/101 95 04/04/17 10:43 04/04/17 14:55 04/04/17 14:55 04/04/17 15:00 04/03/17 20:52 cadio s1s2 reg pulm clear GI soft ext neg edema circ pos pulses Impression 1. Conn/hyperaldo 2. htn emergency 3. CKD 4. MADISON 5. HTN poorly controlled 6. non compliance Plan - blood pressure is improving slowly - cont with aldactone - monitor lytes daily - put out a call to her owner oral surgeon to discuss her care - unclear etiology of CKD - pt says her ring striker was about 3 then had a value of 2.2 - discussed with cardiology - can start hydralazine as well if blood pressure does not improve - would like to get pt back on her home meds and evaluate BP - keep pt in ICU
--- NOTE | 2017-04-04 15:48 | PN ---
Teaching Attending Note Name of Resident: Vinh Dumont ATTENDING PHYSICIAN STATEMENT I saw and evaluated the patient. I reviewed the resident's note and discussed the case with the resident. I agree with the resident's findings and plan as documented. SUBJECTIVE: No fever or chills, has boyer, no visual changes , no neck pain , but she feels pain pulsating in her head and necks on both sides when she developes BOYER OBJECTIVE: NAD , AAOx3 HEENT: MMM, no facial droop, EOMI, round equal reactive pupils . CV: RRR, 3/6 Sm all over precardium , but heard best over RUSB .NO JVD today Lungs CTAB Abd: soft, ND, TTP in RLQ , with no rebound tenderness or guarding Ext: No edema . DP 2+ b/l Neuro : no facial droop, EOMI, round equal reactive pupils, tongue at mid line , nl facial sensation . strength 5/5 in upper and lower ext , proximally and distally. sensation to light touch NL. reflexes 2+ knee jerk and biceps b/l Assessment/Plan: Unfortunate 36 y/o lady with h/o hyperaldosteronism, uncontrolled HTN , CKD , , who presented with N/V, BOYER, and chest pain, and was found to have hypertensive emergency 1- HTN emergency: switched to Nicardipine gtt as BP remained elevated . - cont home meds , but dc lasix - appreciate renal help, add hydralazine - cont clonidine patch - US of carotids, reyes snot show any dissection. suspicion is low 2- MADISON on CKD: her base line Cr is 2.3 in september per her. MADISON is likely due to severe HTN and possibly also decreased HEEL BUILDER from heart failure - FeUrea 52%. No hydro on US - stop lasix - renal function worsened, renal invited 3- Acute flash pulmonary edema , from severe HTN. - looks euvolemic now , hold lasix - cont spironolactone 4- Elevated trop: likely demand ischemia in setting of elevated BP. - moitor - cont asa 6- Possible PNA ( CAP) - ceftriaxone day 4/5 . last dose tomorrow - sputum cx 7- hypokalemia ; replete DVT px
--- NOTE | 2017-04-04 15:50 | PN ---
Physical Exam: SUBJECTIVE: Patient seen and examined. No acute events overnight. Pt switched from nitroprusside drip to nicardipine drip overnight. Pt states that headache is same as yesterday, still a 7/10. She also complains of constipation, and states that she has not had a BM since coming to the hospital. She denies lightheadedness, chest pain, SOB, abdominal pain, and dysuria. She states that neck pain is still present, but improved from yesterday. OBJECTIVE: Vital Signs Period Temp Pulse Resp BP Sys/Li Pulse Ox Last 24 Hr 98.2 F-98.8 F 72-88 14-18 115-157/84-108 95 GENERAL: middle-aged female, sitting in bed, AAOx3, in NAD HEENT: NC, AT, EOMI, dry mucous membranes LUNGS: CTAB, no rales, no wheezing HEART: tachycardic, regular rhythm, no murmurs ABDOMEN: Soft, nontender, nondistended, normoactive bowel sounds, no guarding, no rebound, no hepatosplenomegaly, no masses. EXTREMITIES: 2+ pulses, warm, well-perfused, no edema. NEUROLOGICAL: Cranial nerves II through XII grossly intact. motor strength 5/5 in b/l UE and LEs, b/l sensory function intact to touch, reflexes 2+. Normal speech, gait not observed. Laboratory Results - last 24 hr 04/03/17 04/03/17 04/03/17 09:05 13:45 14:40 WBC RBC Hgb Hct MCV MCH MCHC RDW Plt Count MPV Sodium 139 Potassium 3.1 L Chloride 101 Carbon Dioxide 31 Anion Gap 7 L BUN 26 H Creatinine 4.3 H Creat Clearance w eGFR Random Glucose 97 Calcium 8.6 Phosphorus Magnesium Iron 38 TIBC 221 L Iron Saturation 17 Total Bilirubin AST ALT Alkaline Phosphatase Total Protein Albumin Urine Creatinine 160.0 04/04/17 04/04/17 04/04/17 06:00 06:00 06:00 WBC 5.7 D RBC 2.71 L Hgb 7.6 L Hct 23.3 L MCV 85.8 MCH 28.1 MCHC 32.8 RDW 16.6 H Plt Count 144 MPV 8.5 Sodium 138 Potassium 3.3 L Chloride 101 Carbon Dioxide 28 Anion Gap 9 BUN 28 H Creatinine 4.5 H Creat Clearance w eGFR 10.94 Random Glucose 91 Calcium 8.8 Phosphorus 3.7 Cancelled Magnesium 2.2 Cancelled Iron TIBC Iron Saturation Total Bilirubin 0.6 AST 12 L D ALT 27 Alkaline Phosphatase 59 Total Protein 5.8 L Albumin 3.0 L Urine Creatinine Active Medications Generic Name Dose Route Start Last Admin Trade Name Freq PRN Reason Stop Dose Admin Amlodipine Besylate 10 mg 04/02/17 10:00 04/04/17 09:10 Norvasc - PO 10 mg DAILY BRET Administration Aspirin 81 mg 04/03/17 10:00 04/04/17 09:09 Ecotrin - PO 81 mg DAILY BRET Administration Chlorhexidine Gluconate 1 applic 04/02/17 22:00 04/03/17 22:00 Hibiclens For Decolonization - TP 1 applic HS BRET Administration Clonidine HCl 0.3 mg 04/03/17 10:00 04/03/17 09:36 Catapres Tts Patch - TD 0.3 mg Mo@1000 BRET Administration Codeine Sulfate 30 mg 04/04/17 11:03 04/04/17 11:21 Codeine Sulfate - PO 30 mg Q6H PRN Administration PAIN Docusate Sodium 100 mg 04/04/17 14:00 04/04/17 13:03 Colace - PO Not Given TID BRET Doxazosin Mesylate 8 mg 04/02/17 10:00 04/04/17 10:32 Cardura - PO 8 mg DAILY BRET Administration Heparin Sodium (Porcine) 5,000 unit 04/02/17 06:00 04/04/17 13:02 Heparin - SQ 5,000 unit TID [facility] Administration Hydralazine HCl 25 mg 04/04/17 15:45 Apresoline - PO TID [facility] Sodium Nitroprusside 50,000 250 mls @ 11.43 mls/hr 04/02/17 04:15 04/04/17 06 :09 mcg/ Sodium Chloride IVPB Not Given TITR [facility] Protocol 0.5 MCG/KG/MIN CEFTRIAXONE 1 G/50 ML PREMIX 50 mls @ 100 mls/hr 04/02/17 09:00 04/04/17 09: 11 Ceftriaxone 1 Gm-D5w Bag IVPB 100 mls/hr DAILY BRET Administration Labetalol HCl 600 mg 04/02/17 10:00 04/04/17 09:10 Normodyne - PO 600 mg BID BRET Administration Metoclopramide HCl 10 mg 04/03/17 14:58 04/04/17 12:51 Reglan Injection - IVPUSH 10 mg Q8H PRN Administration NAUSEA AND/OR VOMITING Minoxidil 2.5 mg 04/02/17 10:00 04/04/17 10:32 Lonitin - PO 2.5 mg DAILY BRET Administration Mupirocin 1 applic 04/02/17 10:00 04/04/17 09:11 Bactroban Ointment (For Decolonization) - NS 04/07/17 09:59 1 applic BID BRET Administration Polyethylene Glycol 17 gm 04/04/17 10:45 04/04/17 13:02 Miralax (For Daily Use) - PO Not Given DAILY BRET Senna 1 tab 04/04/17 10:45 04/04/17 11:07 Senna - PO 1 tab BID BRET Administration Spironolactone 50 mg 04/05/17 10:00 Aldactone - PO DAILY BRET Trazodone HCl 100 mg 04/03/17 22:00 04/03/17 23:00 Desyrel - PO 100 mg HS BRET Administration Carotid doppler: no hemodynamically signfiicant stenosis, not sensitive for carotid dissection. ASSESSMENT/PLAN: 36F w/ hx of hyperaldosteronism, uncontrolled HTN, and CKD who presented with acute onset N/V, BOYER, and chest pain, and was found to have hypertensive emergency. #HTN emergency - BPs 115-155/90-105 overnight - tolerated home meds without emesis - remains on nicardipine gtt, wean as tolerated - continue clonidine patch, aldactone, minoxidil, labetalol, amlodipine - per renal, hydralazine started, and aldactone continued #MADISON on CKD-2/2 HTN with component of HF - baseline Cr is 2.3 (as of september per her) - FeUrea 52%. indicating intrinsic etiology, but she also has CKD - US abdomen: b/l echogenic ernal cortices, right renal cyst - creatinine trending up, so renal consulted. recs appreciated - lasix discontinued as no more rales and pt appears dry #Acute flash pulmonary edema- 2/2 severe HTN - improved, no O2 requirement today and pt appears dry - lasix discontinued - echo: moderate LVH. mild MR< TR, and AR. small pericardial effusion -strict I/Os, daily weights #Elevated trop- likely 2/2 demand ischemia in setting of elevated BP - 0.29 --> 0.28 --> 0.26 - cont ASA #constipation -started senna, colace, and miralax #BOYER - codeine - continue to monitor #Nausea -reglan PRN #Possible CAP - continue ceftriaxone (day 4 of 5) - f/u sputum cx #normocytic anemia- likely 2/2 CKD - Hgb of 7.6, stable - continue to monitor - will call PCP regarding baseline Hgb #hypokalemia -K of 3.3 today -repleted #FEN/ppx -no fluids -K repleted -sodium controlled diet -no GI ppx -heparin 5000U TID -Vinh Dumont MD PGY1 Visit type - Emergency Visit Emergency Visit: Yes ED Registration Date: 04/02/17 Care time: The patient presented to the Emergency Department on the above date and was hospitalized for further evaluation of their emergent condition. - New Patient This patient is new to me today: No - Critical Care Critical Care patient: Yes Total Critical Care Time (in minutes): 38 Critical Care Statement: The care of this patient involved high complexity decision making to prevent further life threatening deterioration of the patient 's condition and/or to evaluate & treat vital organ system(s) failure or risk of failure.
[2017-04-04] MEDS: hydrALAZINE HCL 25 MG TABLET (FP) PO SCH ×2 (16:22→22:22)
[2017-04-04] MEDS: CHLORHEXIDINE GLUCONATE 4% CLEANSER FOR DECOLONIZATION TP SCH (22:22)
[2017-04-04] MEDS: traZODone HCL 100 MG TABLET (FP) PO SCH (22:22)
[2017-04-04 22:39] LABS: ANION GAP 10 (8-16); CALCIUM 8.5 mg/dL (8.5-10.1); CO2 27 mmol/L (21-32); CREATININE 4.3 mg/dL (0.55-1.02); GLUCOSE,RANDOM 84 mg/dL (74-106)
[2017-04-04] MEDS ORDERED: POTASSIUM CHLORIDE ORAL LIQUID 20 MEQ/15 ML PO ONE (22:51)
[2017-04-04] MEDS ORDERED: ARTIFICIAL TEARS (POLYVINYL ALCOHOL 1.4%) OPTH DROPS OU PRN (23:26)
[2017-04-05] MEDS: DOCUSATE SODIUM 100 MG CAPSULE (FP) PO SCH ×3 (06:15→22:58)
[2017-04-05] MEDS: hydrALAZINE HCL 25 MG TABLET (FP) PO SCH ×3 (06:23→22:59)
[2017-04-05] MEDS: HEPARIN NA (PORCINE) 5,000 UNITS/ML 1ML VIAL SQ SCH (06:23)
[2017-04-05 06:37] LABS: BASO % 0.2 % (0-2.0); EOS % 10.2 % (0-4.5); MCH 28.6 pg (25.7-33.7); MCHC 33.2 g/dl (32.0-36.0); MEAN CELL VOLUME 86.3 fl (80-96); MEAN PLT VOLUME 8.9 fl (7.5-11.1); NEUT % 61.1 % (42.8-82.8); PLATELET COUNT 154 K/MM3 (134-434); RDW 16.8 % (11.6-15.6); WHITE BLOOD COUNT 5.2 K/mm3 (4.0-10.0)
[2017-04-05 08:01] LABS: ALBUMIN 2.9 g/dl (3.4-5.0); ALK PHOS 65 U/L (45-117); ANION GAP 9 (8-16); BILIRUBIN,TOTAL 0.4 mg/dL (0.2-1.0); CALCIUM 8.3 mg/dL (8.5-10.1); CO2 28 mmol/L (21-32); CREATININE 4.5 mg/dL (0.55-1.02); GLUCOSE,RANDOM 79 mg/dL (74-106); SGOT/AST 24 U/L (15-37); SGPT/ALT 45 U/L (12-78); TOT PROT 5.6 g/dl (6.4-8.2)
[2017-04-05] MEDS ORDERED: POTASSIUM CHLORIDE TABS 20 MEQ TABLET.ER (FP) PO ONE (08:23)
[2017-04-05] MEDS ORDERED: PT OWN MED DRAWER 7, Y5N ONE ×2 (08:31→08:41)
--- NOTE | 2017-04-05 08:54 | PN ---
Physical Exam: SUBJECTIVE: Patient seen and examined. Pt taken off of nicardipine gtt yesterday. Pt states that her headache has improved, currently a 3/10 in severity. She states that she still has not had a BM, but does not want an enema at this time. She denies any neurological symptoms, chest pain, SOB, abdominal pain, and dysuria. OBJECTIVE: Vital Signs Period Temp Pulse Resp BP Sys/Li Pulse Ox Last 24 Hr 98.4 F-98.6 F 70-86 15-20 126-180/92-130 100 GENERAL: middle-aged female, lying in bed, AAOx3, in NAD HEENT: NC, AT, EOMI LUNGS: CTAB, no rales, no wheezing HEART: regular rate, regular rhythm, no murmurs ABDOMEN: Soft, nontender, nondistended, normoactive bowel sounds, no guarding, no rebound, no hepatosplenomegaly, no masses. EXTREMITIES: 2+ pulses, warm, well-perfused, no edema. NEUROLOGICAL: Cranial nerves II through XII grossly intact. motor strength 5/5 in b/l UE and LEs, b/l sensory function intact to touch, reflexes 2+. Normal speech, gait not observed. Laboratory Results - last 24 hr 04/04/17 04/04/17 04/04/17 06:00 06:00 22:00 WBC RBC Hgb Hct MCV MCH MCHC RDW Plt Count MPV Neutrophils % Lymphocytes % Monocytes % Eosinophils % Basophils % Sodium 138 139 Potassium 3.3 L 3.4 L Chloride 101 102 Carbon Dioxide 28 27 Anion Gap 9 10 BUN 28 H 29 H Creatinine 4.5 H 4.3 H Creat Clearance w eGFR 10.94 Random Glucose 91 84 Calcium 8.8 8.5 Phosphorus 3.7 Cancelled Magnesium 2.2 Cancelled Total Bilirubin 0.6 AST 12 L D ALT 27 Alkaline Phosphatase 59 Total Protein 5.8 L Albumin 3.0 L Blood Type Antibody Screen 04/05/17 04/05/17 04/05/17 06:00 06:20 06:20 WBC 5.2 RBC 2.58 L Hgb 7.4 L Hct 22.3 L MCV 86.3 MCH 28.6 MCHC 33.2 RDW 16.8 H Plt Count 154 MPV 8.9 Neutrophils % 61.1 D Lymphocytes % 23.0 D Monocytes % 5.5 Eosinophils % 10.2 H D Basophils % 0.2 Sodium 139 Potassium 3.5 Chloride 102 Carbon Dioxide 28 Anion Gap 9 BUN 30 H Creatinine 4.5 H Creat Clearance w eGFR 10.94 Random Glucose 79 Calcium 8.3 L Phosphorus Magnesium Total Bilirubin 0.4 D AST 24 D ALT 45 D Alkaline Phosphatase 65 Total Protein 5.6 L Albumin 2.9 L Blood Type AB POSITIVE Antibody Screen Negative Active Medications Generic Name Dose Route Start Last Admin Trade Name Freq PRN Reason Stop Dose Admin Amlodipine Besylate 10 mg 04/02/17 10:00 04/04/17 09:10 Norvasc - PO 10 mg DAILY BRET Administration Artificial Tears 1 drop 04/04/17 23:26 Artificial Tears OU Q6H PRN DRY EYES Aspirin 81 mg 04/03/17 10:00 04/04/17 09:09 Ecotrin - PO 81 mg DAILY BRET Administration Chlorhexidine Gluconate 1 applic 04/02/17 22:00 04/04/17 22:22 Hibiclens For Decolonization - TP 1 applic HS BRET Administration Clonidine HCl 0.3 mg 04/03/17 10:00 04/03/17 09:36 Catapres Tts Patch - TD 0.3 mg Mo@1000 BRET Administration Codeine Sulfate 30 mg 04/04/17 11:03 04/04/17 22:22 Codeine Sulfate - PO 30 mg Q6H PRN Administration PAIN Docusate Sodium 100 mg 04/04/17 14:00 04/05/17 06:15 Colace - PO Not Given TID BRET Doxazosin Mesylate 8 mg 04/02/17 10:00 04/04/17 10:32 Cardura - PO 8 mg DAILY BRET Administration Heparin Sodium (Porcine) 5,000 unit 04/02/17 06:00 04/05/17 06:23 Heparin - SQ 5,000 unit TID BRET Administration Hydralazine HCl 25 mg 04/04/17 15:45 04/05/17 06:23 Apresoline - PO 25 mg TID BRET Administration CEFTRIAXONE 1 G/50 ML PREMIX 50 mls @ 100 mls/hr 04/02/17 09:00 04/04/17 09: 11 Ceftriaxone 1 Gm-D5w Bag IVPB 100 mls/hr DAILY BRET Administration Labetalol HCl 600 mg 04/02/17 10:00 04/04/17 22:22 Normodyne - PO 600 mg BID BRET Administration Metoclopramide HCl 10 mg 04/03/17 14:58 04/04/17 12:51 Reglan Injection - IVPUSH 10 mg Q8H PRN Administration NAUSEA AND/OR VOMITING Minoxidil 2.5 mg 04/02/17 10:00 04/04/17 10:32 Lonitin - PO 2.5 mg DAILY [facility] Administration Mupirocin 1 applic 04/02/17 10:00 04/04/17 22:22 Bactroban Ointment (For Decolonization) - NS 04/07/17 09:59 1 applic BID BRET Administration Polyethylene Glycol 17 gm 04/04/17 10:45 04/04/17 18:46 Miralax (For Daily Use) - PO 17 grams DAILY BRET Administration Senna 1 tab 04/04/17 10:45 04/04/17 22:22 Senna - PO 1 tab BID BRET Administration Spironolactone 50 mg 04/05/17 10:00 Aldactone - PO DAILY BRET Trazodone HCl 100 mg 04/03/17 22:00 04/04/17 22:22 Desyrel - PO 100 mg HS BRET Administration ASSESSMENT/PLAN: 36F w/ hx of hyperaldosteronism, uncontrolled HTN, and CKD who presented with acute onset N/V, BOYER, and chest pain, and was found to have hypertensive emergency. #HTN emergency - BPs 150-165/95-115 overnight, off of nicardipine gtt - tolerated home meds without emesis - continue clonidine patch, aldactone, minoxidil, labetalol, amlodipine, hydralazine - renal on board, appreciate recs -per Dr. Luigi Dunham (pt's rivet thrower), pt's baseline BP has been 160-170/ 110s as of this past November, and she has been on hydralazine 50 TID, amlodipine 10 qd, clonidine 0.2 patch, doxazosin 8 BID, labetalol 600 BID, lisinopril 10 qd , minoxidil 5, lasix 40, and aldactone 50. #MADISON on CKD-2/2 HTN with component of HF - baseline Cr is 2.3 (as of september per her) - FeUrea 52%. indicating intrinsic etiology, but she also has CKD - US abdomen: b/l echogenic ernal cortices, right renal cyst - creatinine of 4.5 today, same as yesterday - plan per renal recs #Acute flash pulmonary edema- 2/2 severe HTN - improved - echo: moderate LVH. mild MR< TR, and AR. small pericardial effusion -strict I/Os, daily weights -weight: negative 0.7 kg #Elevated trop- likely 2/2 demand ischemia in setting of elevated BP - 0.29 --> 0.28 --> 0.26 - cont ASA #constipation -started senna, colace, and miralax -still no BM. If no BM later today, enema PRN #BOYER -improving - codeine - continue to monitor #Nausea -reglan PRN #Possible CAP - ceftriaxone (day 5 of ) - f/u sputum cx #normocytic anemia- likely 2/2 CKD - Hgb of 7.4, no complaint of SOB - continue to monitor - per Dr. Luigi Dunham, pt's baseline is 7/8, was as low as 6 at one point. He does not know if she has ever received blood transfusions or had GI workup. - per pt, she has had numerous blood transfusions in past, and recalls that her Hgb was as low as 3 once. She endorses sickle cell trait. #hypokalemia -K of 3.5 today -repleted #FEN/ppx -no fluids -K repleted -sodium controlled diet -no GI ppx -heparin 5000U TID -Vinh Dumont MD PGY1 Visit type - Emergency Visit Emergency Visit: Yes ED Registration Date: 04/02/17 Care time: The patient presented to the Emergency Department on the above date and was hospitalized for further evaluation of their emergent condition. - New Patient This patient is new to me today: No - Critical Care Critical Care patient: Yes Total Critical Care Time (in minutes): 37 Critical Care Statement: The care of this patient involved high complexity decision making to prevent further life threatening deterioration of the patient 's condition and/or to evaluate & treat vital organ system(s) failure or risk of failure.
[2017-04-05] MEDS: amLODIPine BESYLATE 10 MG TABLET (FP) PO SCH (09:58)
[2017-04-05] MEDS: DOXAZOSIN MESYLATE 4 MG TABLET PO SCH (09:58)
[2017-04-05] MEDS: SENNOSIDES 8.6MG TABLET (FP) PO SCH ×2 (09:59→22:58)
[2017-04-05] MEDS: MINOXIDIL 2.5 MG TABLET PO SCH (09:59)
[2017-04-05] MEDS: LABETALOL HCL 200 MG TABLET (FP) PO SCH ×2 (09:59→22:58)
[2017-04-05] MEDS: ASPIRIN COATED 81 MG TABLET.EC PO SCH (09:59)
[2017-04-05] MEDS ORDERED: SPIRONOLACTONE 25 MG TABLET (FP) PO SCH (10:00)
[2017-04-05 10:15] LABS: MAGNESIUM 2.4 mg/dL (1.8-2.4); PHOSPHOROUS 4.4 mg/dL (2.5-4.9)
[2017-04-05] MEDS: POLYETHYLENE GLYCOL 3350 119 GM BTL PO SCH (10:24)
[2017-04-05] MEDS: MUPIROCIN 2% TOPICAL OINTMENT FOR DECOLONIZATION NS SCH (10:24)
[2017-04-05] MEDS: CEFTRIAXONE 1 G/50 ML PREMIX 50 ML IVPB SCH (10:29)
--- NOTE | 2017-04-05 10:52 | PN ---
Teaching Attending Note Name of Resident: Vinh Dumont ATTENDING PHYSICIAN STATEMENT I saw and evaluated the patient. I reviewed the resident's note and discussed the case with the resident. I agree with the resident's findings and plan as documented. SUBJECTIVE: Patient is comfortable with no acute distress, no shortness of breath, no nausea or vomiting, blood pressure is better today. OBJECTIVE: Vital Signs Temperature 98.8 F 04/05/17 09:41 Pulse Rate 74 04/05/17 09:41 Respiratory Rate 20 04/05/17 09:41 Blood Pressure 141/99 04/05/17 09:41 O2 Sat by Pulse Oximetry (%) 100 04/05/17 09:00 CBCD WBC 5.2 K/mm3 (4.0-10.0) 04/05/17 06:20 RBC 2.58 M/mm3 (3.60-5.2) L 04/05/17 06:20 Hgb 7.4 GM/dL (10.7-15.3) L 04/05/17 06:20 Hct 22.3 % (32.4-45.2) L 04/05/17 06:20 MCV 86.3 fl (80-96) 04/05/17 06:20 MCHC 33.2 g/dl (32.0-36.0) 04/05/17 06:20 RDW 16.8 % (11.6-15.6) H 04/05/17 06:20 Plt Count 154 K/MM3 (134-434) 04/05/17 06:20 MPV 8.9 fl (7.5-11.1) 04/05/17 06:20 CMP Sodium 139 mmol/L (136-145) 04/05/17 06:00 Potassium 3.5 mmol/L (3.5-5.1) 04/05/17 06:00 Chloride 102 mmol/L (98-107) 04/05/17 06:00 Carbon Dioxide 28 mmol/L (21-32) 04/05/17 06:00 Anion Gap 9 (8-16) 04/05/17 06:00 BUN 30 mg/dL (7-18) H 04/05/17 06:00 Creatinine 4.5 mg/dL (0.55-1.02) H 04/05/17 06:00 Creat Clearance w eGFR 10.94 (>60) 04/05/17 06:00 Random Glucose 79 mg/dL (74-106) 04/05/17 06:00 Calcium 8.3 mg/dL (8.5-10.1) L 04/05/17 06:00 Total Bilirubin 0.4 mg/dL (0.2-1.0) D 04/05/17 06:00 AST 24 U/L (15-37) D 04/05/17 06:00 ALT 45 U/L (12-78) D 04/05/17 06:00 Alkaline Phosphatase 65 U/L (45-117) 04/05/17 06:00 Total Protein 5.6 g/dl (6.4-8.2) L 04/05/17 06:00 Albumin 2.9 g/dl (3.4-5.0) L 04/05/17 06:00 CARDIAC ENZYMES Creatine Kinase 133 IU/L (26-192) 04/02/17 16:27 Troponin I 0.26 ng/ml (0.00-0.05) H 04/02/17 16:27 Current Medications Generic Name Dose Route Start Last Admin Trade Name Freq PRN Reason Stop Dose Admin Amlodipine Besylate 10 mg 04/02/17 10:00 04/05/17 09:58 Norvasc - PO 10 mg DAILY BRET Administration Artificial Tears 1 drop 04/04/17 23:26 Artificial Tears OU Q6H PRN DRY EYES Aspirin 81 mg 04/03/17 10:00 04/05/17 09:59 Ecotrin - PO 81 mg DAILY BRET Administration Chlorhexidine Gluconate 1 applic 04/02/17 22:00 04/04/17 22:22 Hibiclens For Decolonization - TP 1 applic HS BRET Administration Clonidine HCl 0.3 mg 04/03/17 10:00 04/03/17 09:36 Catapres Tts Patch - TD 0.3 mg Mo@1000 BRET Administration Codeine Sulfate 30 mg 04/04/17 11:03 04/04/17 22:22 Codeine Sulfate - PO 30 mg Q6H PRN Administration PAIN Docusate Sodium 100 mg 04/04/17 14:00 04/05/17 06:15 Colace - PO Not Given TID BRET Doxazosin Mesylate 8 mg 04/02/17 10:00 04/05/17 09:58 Cardura - PO 8 mg DAILY BRET Administration Hydralazine HCl 25 mg 04/04/17 15:45 04/05/17 06:23 Apresoline - PO 25 mg TID BRET Administration CEFTRIAXONE 1 G/50 ML PREMIX 50 mls @ 100 mls/hr 04/02/17 09:00 04/05/17 10: 29 Ceftriaxone 1 Gm-D5w Bag IVPB 04/05/17 23:59 100 mls/hr DAILY BRET Administration Labetalol HCl 600 mg 04/02/17 10:00 04/05/17 09:59 Normodyne - PO 600 mg BID BRET Administration Metoclopramide HCl 10 mg 04/03/17 14:58 04/04/17 12:51 Reglan Injection - IVPUSH 10 mg Q8H PRN Administration NAUSEA AND/OR VOMITING Minoxidil 2.5 mg 04/02/17 10:00 04/05/17 09:59 Lonitin - PO 2.5 mg DAILY BRET Administration Mupirocin 1 applic 04/02/17 10:00 04/05/17 10:24 Bactroban Ointment (For Decolonization) - NS 04/07/17 09:59 1 applic BID BRET Administration Polyethylene Glycol 17 gm 04/04/17 10:45 04/05/17 10:24 Miralax (For Daily Use) - PO 17 grams DAILY BRET Administration Senna 1 tab 04/04/17 10:45 04/05/17 09:59 Senna - PO 1 tab BID BRET Administration Spironolactone 50 mg 04/05/17 10:00 04/05/17 09:58 Aldactone - PO 50 mg DAILY BRET Administration Trazodone HCl 100 mg 04/03/17 22:00 04/04/17 22:22 Desyrel - PO 100 mg HS BRET Administration Home Medications Medication Instructions Recorded Amlodipine Besylate 10 mg PO DAILY 04/01/17 Furosemide 20 mg PO DAILY 04/01/17 Labetalol HCl [Normodyne -] 600 mg PO BID 04/01/17 Spironolactone 50 mg PO DAILY 04/01/17 Clonidine Patch [Catapres Tts 0.3 mg TD WEEKLY 04/02/17 Patch -] Doxazosin Mesylate 8 mg PO DAILY 04/02/17 Minoxidil [Lonitin -] 2.5 mg PO DAILY 04/02/17 PE: per resident's note Assessment/Plan: Patient is a 36 y/o lady with h/o hyperaldosteronism, uncontrolled HTN , CKD , , who presented with N/V, BOYER, and chest pain, and was found to have hypertensive emergency # HTN emergency: s/p Nicardipine gtt , switched to oral supplements, will continue to monitor. # MADISON on CKD: with baseline of 2.3 in september, further w/u by # Elevated trop: likely due to demand ischemia in setting of elevated BP. # Possible PNA ( CAP) on ceftriaxone day 08/19 . completed the course # hypokalemia , monitor and reploete DVT px SCDs
--- NOTE | 2017-04-05 11:29 | PN ---
Physical Exam: SUBJECTIVE: Patient seen and examined blood pressure around baseline; systolic 160s/diastolic 90s; Denies headache, blurry vision, chest pain, sob, palpitations, leg swelling. OBJECTIVE: Vital Signs Period Temp Pulse Resp BP Sys/Li Pulse Ox Last 24 Hr 98.6 F-98.8 F 70-86 16-20 126-180/92-130 100-100 GENERAL: The patient is awake, alert, and fully oriented, in no acute distress. NECK: Trachea midline, full range of motion, supple. LUNGS: Breath sounds equal, clear to auscultation bilaterally, no wheezes, no crackles, no accessory muscle use. HEART: Regular rate and rhythm, S1, S2 without murmur, rub or gallop. ABDOMEN: Soft, nontender, nondistended, normoactive bowel sounds, no guarding, no rebound, no hepatosplenomegaly, no masses. EXTREMITIES: 2+ pulses, warm, well-perfused, no edema. NEUROLOGICAL: Cranial nerves II through XII grossly intact. Normal speech, gait not observed. PSYCH: Normal mood, normal affect. SKIN: Warm, dry, normal turgor, no rashes or lesions noted Laboratory Results - last 24 hr 04/04/17 04/04/17 04/05/17 06:00 22:00 05:05 WBC RBC Hgb Hct MCV MCH MCHC RDW Plt Count MPV Neutrophils % Lymphocytes % Monocytes % Eosinophils % Basophils % Sodium 139 Potassium 3.4 L Chloride 102 Carbon Dioxide 27 Anion Gap 10 BUN 29 H Creatinine 4.3 H Creat Clearance w eGFR Random Glucose 84 Calcium 8.5 Phosphorus 3.7 4.4 Magnesium 2.2 2.4 Total Bilirubin AST ALT Alkaline Phosphatase Total Protein Albumin Blood Type Antibody Screen 04/05/17 04/05/17 04/05/17 06:00 06:20 06:20 WBC 5.2 RBC 2.58 L Hgb 7.4 L Hct 22.3 L MCV 86.3 MCH 28.6 MCHC 33.2 RDW 16.8 H Plt Count 154 MPV 8.9 Neutrophils % 61.1 D Lymphocytes % 23.0 D Monocytes % 5.5 Eosinophils % 10.2 H D Basophils % 0.2 Sodium 139 Potassium 3.5 Chloride 102 Carbon Dioxide 28 Anion Gap 9 BUN 30 H Creatinine 4.5 H Creat Clearance w eGFR 10.94 Random Glucose 79 Calcium 8.3 L Phosphorus Magnesium Total Bilirubin 0.4 D AST 24 D ALT 45 D Alkaline Phosphatase 65 Total Protein 5.6 L Albumin 2.9 L Blood Type AB POSITIVE Antibody Screen Negative Active Medications Generic Name Dose Route Start Last Admin Trade Name Freq PRN Reason Stop Dose Admin Amlodipine Besylate 10 mg 04/02/17 10:00 04/05/17 09:58 Norvasc - PO 10 mg DAILY BRET Administration Artificial Tears 1 drop 04/04/17 23:26 Artificial Tears OU Q6H PRN DRY EYES Aspirin 81 mg 04/03/17 10:00 04/05/17 09:59 Ecotrin - PO 81 mg DAILY BRET Administration Chlorhexidine Gluconate 1 applic 04/02/17 22:00 04/04/17 22:22 Hibiclens For Decolonization - TP 1 applic HS BRET Administration Clonidine HCl 0.3 mg 04/03/17 10:00 04/03/17 09:36 Catapres Tts Patch - TD 0.3 mg Mo@1000 BRET Administration Codeine Sulfate 30 mg 04/04/17 11:03 04/04/17 22:22 Codeine Sulfate - PO 30 mg Q6H PRN Administration PAIN Docusate Sodium 100 mg 04/04/17 14:00 04/05/17 06:15 Colace - PO Not Given TID BRET Doxazosin Mesylate 8 mg 04/02/17 10:00 04/05/17 09:58 Cardura - PO 8 mg DAILY BRET Administration Hydralazine HCl 25 mg 04/04/17 15:45 04/05/17 06:23 Apresoline - PO 25 mg TID BRET Administration CEFTRIAXONE 1 G/50 ML PREMIX 50 mls @ 100 mls/hr 04/02/17 09:00 04/05/17 10: 29 Ceftriaxone 1 Gm-D5w Bag IVPB 04/05/17 23:59 100 mls/hr DAILY BRET Administration Labetalol HCl 600 mg 04/02/17 10:00 04/05/17 09:59 Normodyne - PO 600 mg BID BRET Administration Minoxidil 2.5 mg 04/02/17 10:00 04/05/17 09:59 Lonitin - PO 2.5 mg DAILY BRET Administration Mupirocin 1 applic 04/02/17 10:00 04/05/17 10:24 Bactroban Ointment (For Decolonization) - NS 04/07/17 09:59 1 applic BID BRET Administration Polyethylene Glycol 17 gm 04/04/17 10:45 04/05/17 10:24 Miralax (For Daily Use) - PO 17 grams DAILY BRET Administration Senna 1 tab 04/04/17 10:45 04/05/17 09:59 Senna - PO 1 tab BID BRET Administration Spironolactone 50 mg 04/05/17 10:00 04/05/17 09:58 Aldactone - PO 50 mg DAILY BRET Administration ASSESSMENT/PLAN: 36 year old female with a history of Conn's syndrome and very uncontrolled hypertension, presented with hypertensive emergency. #Hypertensive emergency secondary to hyperaldosterone syndrome -bp currently controlled -continue current bp regimen, as above; can titrate up hydralizine as needed #Acute on chronic renal failure -Cr improving -monitor Cr. I/Os -currently avoid nephrotoxic agents -appreciate renal #elevated troponins secondary to demand ischemia; no ecg changes Diet: low Na DVT: prohpylaxis: patient denies heparin sq; she states she will walk on her own Disposition: stable to transfer to floors Problem List - Problems (1) Acute renal failure Code(s): N17.9 - ACUTE KIDNEY FAILURE, UNSPECIFIED (2) Adrenal adenoma Code(s): D35.00 - BENIGN NEOPLASM OF UNSPECIFIED ADRENAL GLAND (3) Anemia Code(s): D64.9 - ANEMIA, UNSPECIFIED (4) CKD (chronic kidney disease) Code(s): N18.9 - CHRONIC KIDNEY DISEASE, UNSPECIFIED (5) Hyperaldosteronism Code(s): E26.9 - HYPERALDOSTERONISM, UNSPECIFIED (6) Hypertensive emergency Code(s): I16.1 - HYPERTENSIVE EMERGENCY Visit type - Emergency Visit Emergency Visit: Yes ED Registration Date: 04/02/17 Care time: The patient presented to the Emergency Department on the above date and was hospitalized for further evaluation of their emergent condition. - New Patient This patient is new to me today: Yes Date on this admission: 04/05/17 - Critical Care Critical Care patient: Yes Total Critical Care Time (in minutes): 35 Critical Care Statement: The care of this patient involved high complexity decision making to prevent further life threatening deterioration of the patient 's condition and/or to evaluate & treat vital organ system(s) failure or risk of failure.
--- NOTE | 2017-04-05 12:30 | PN ---
Teaching Attending Note Name of Resident: Padmini Dai ATTENDING PHYSICIAN STATEMENT I saw and evaluated the patient. I reviewed the resident's note and discussed the case with the resident. I agree with the resident's findings and plan as documented. SUBJECTIVE: Pt seen and examined in the ICU. Off cardene gtt since yesterday. Headache and nausea are resolving. Tolerating PO. OBJECTIVE: Last Vital Signs Temp Pulse Resp BP Pulse Ox 98.8 F 74 20 141/99 100 04/05/17 09:41 04/05/17 09:41 04/05/17 09:41 04/05/17 09:41 04/05/17 09:00 Intake & Output 04/02/17 04/03/17 04/04/17 04/05/17 23:59 23:59 23:59 23:59 Intake Total 1060 2822 1535 200 Output Total 975 450 1 Balance 85 2372 1535 199 Weight 176 lb 5.917 oz 177 lb 0.499 oz 175 lb 6.4 oz 176 lb 8 oz Gen: NAD at rest Heart: RRR Lung: decreased breath sounds at the bases Abd: soft, nontender Ext: no edema CBC, BMP 04/05/17 06:20 04/05/17 06:00 Active Medications Amlodipine Besylate (Norvasc -) 10 mg PO DAILY [facility] Last Admin: 04/05/17 09:58 Dose: 10 mg Artificial Tears (Artificial Tears) 1 drop OU Q6H PRN PRN Reason: DRY EYES Aspirin (Ecotrin -) 81 mg PO DAILY [facility] Last Admin: 04/05/17 09:59 Dose: 81 mg Chlorhexidine Gluconate (Hibiclens For Decolonization -) 1 applic TP HS [facility] Last Admin: 04/04/17 22:22 Dose: 1 applic Clonidine HCl (Catapres Tts Patch -) 0.3 mg TD Mo@1000 [facility] Last Admin: 04/03/17 09:36 Dose: 0.3 mg Codeine Sulfate (Codeine Sulfate -) 30 mg PO Q6H PRN PRN Reason: PAIN Last Admin: 04/04/17 22:22 Dose: 30 mg Docusate Sodium (Colace -) 100 mg PO TID [facility] Last Admin: 04/05/17 06:15 Dose: Not Given Doxazosin Mesylate (Cardura -) 8 mg PO DAILY [facility] Last Admin: 04/05/17 09:58 Dose: 8 mg Hydralazine HCl (Apresoline -) 25 mg PO TID [facility] Last Admin: 04/05/17 06:23 Dose: 25 mg CEFTRIAXONE 1 G/50 ML PREMIX (Ceftriaxone 1 Gm-D5w Bag) 50 mls @ 100 mls/hr IVPB DAILY [facility] Stop: 04/05/17 23:59 Last Admin: 04/05/17 10:29 Dose: 100 mls/hr Labetalol HCl (Normodyne -) 600 mg PO BID [facility] Last Admin: 04/05/17 09:59 Dose: 600 mg Minoxidil (Lonitin -) 2.5 mg PO DAILY [facility] Last Admin: 04/05/17 09:59 Dose: 2.5 mg Mupirocin (Bactroban Ointment (For Decolonization) -) 1 applic NS BID [facility] Stop: 04/07/17 09:59 Last Admin: 04/05/17 10:24 Dose: 1 applic Polyethylene Glycol (Miralax (For Daily Use) -) 17 gm PO DAILY [facility] Last Admin: 04/05/17 10:24 Dose: 17 grams Senna (Senna -) 1 tab PO BID [facility] Last Admin: 04/05/17 09:59 Dose: 1 tab Spironolactone (Aldactone -) 50 mg PO DAILY [facility] Last Admin: 04/05/17 09:58 Dose: 50 mg ASSESSMENT AND PLAN: Hypertensive Emergency +Troponins likely demand ischemia Acute on Chronic Renal Failure Hyperaldosteronism r/o Pneumonia - BP control with PO meds - complete antibiotics - monitor urine output, creatinine, her baseline creatinine is around 2.6 - PO as tolerated - DVT prophylaxis - can monitor on the floor
--- NOTE | 2017-04-05 12:51 | PN ---
Progress Note (short form) - Note Progress Note: Chief Complaint: htn emergency History of Present Illness: no cp, palps, dizziness, sob. ex cigs Current Medications Generic Name Dose Route Start Last Admin Trade Name Freq PRN Reason Stop Dose Admin Amlodipine Besylate 10 mg 04/02/17 10:00 04/05/17 09:58 Norvasc - PO 10 mg DAILY BRET Administration Artificial Tears 1 drop 04/04/17 23:26 Artificial Tears OU Q6H PRN DRY EYES Aspirin 81 mg 04/03/17 10:00 04/05/17 09:59 Ecotrin - PO 81 mg DAILY BRET Administration Chlorhexidine Gluconate 1 applic 04/02/17 22:00 04/04/17 22:22 Hibiclens For Decolonization - TP 1 applic HS BRET Administration Clonidine HCl 0.3 mg 04/03/17 10:00 04/03/17 09:36 Catapres Tts Patch - TD 0.3 mg Mo@1000 BRET Administration Codeine Sulfate 30 mg 04/04/17 11:03 04/04/17 22:22 Codeine Sulfate - PO 30 mg Q6H PRN Administration PAIN Docusate Sodium 100 mg 04/04/17 14:00 04/05/17 06:15 Colace - PO Not Given TID BRET Doxazosin Mesylate 8 mg 04/02/17 10:00 04/05/17 09:58 Cardura - PO 8 mg DAILY BRET Administration Hydralazine HCl 25 mg 04/04/17 15:45 04/05/17 06:23 Apresoline - PO 25 mg TID BRET Administration CEFTRIAXONE 1 G/50 ML PREMIX 50 mls @ 100 mls/hr 04/02/17 09:00 04/05/17 10: 29 Ceftriaxone 1 Gm-D5w Bag IVPB 04/05/17 23:59 100 mls/hr DAILY BRET Administration Labetalol HCl 600 mg 04/02/17 10:00 04/05/17 09:59 Normodyne - PO 600 mg BID BRET Administration Minoxidil 2.5 mg 04/02/17 10:00 04/05/17 09:59 Lonitin - PO 2.5 mg DAILY BRET Administration Mupirocin 1 applic 04/02/17 10:00 04/05/17 10:24 Bactroban Ointment (For Decolonization) - NS 04/07/17 09:59 1 applic BID BRET Administration Polyethylene Glycol 17 gm 04/04/17 10:45 04/05/17 10:24 Miralax (For Daily Use) - PO 17 grams DAILY BRET Administration Senna 1 tab 04/04/17 10:45 04/05/17 09:59 Senna - PO 1 tab BID BRET Administration Spironolactone 50 mg 04/05/17 10:00 04/05/17 09:58 Aldactone - PO 50 mg DAILY BRET Administration - Objective Vital Signs: Vital Signs Period Temp Pulse Resp BP Sys/Li Pulse Ox Last 24 Hr 98.6 F-98.8 F 70-86 16-22 126-180/92-130 100-100 Constitutional: Yes: Well Nourished, No Distress, Eyes: No: Sclera Icterus HENT: No: Nasal Congestion Respiratory: Yes: CTA Bilaterally. No: Accessory Muscle Use, Rales, Wheezes Gastrointestinal: Yes: Normal Bowel Sounds. No: Distention, Hepatomegaly, Palpable Mass, Tenderness Cardiovascular: Yes: Regular Rate and Rhythm JVD: No Heart Sounds: Yes: S1, S2. No: Gallop Murmur: 2/6 systolic murmur at sternal border. No: Diastolic Murmur Extremities: No: Cold Edema: Yes (trace pretib) Peripheral Pulses: 2+ Left Carotid, 2+ Right Carotid, 2+ Left Doralis Pedis, 2+ Right Dorsalis Pedis Integumentary: No: Jaundice Neurological: Yes: Alert, Oriented (x3) Psychiatric: No: Agitated Labs: CBC, BMP 04/05/17 06:20 04/05/17 06:00 tele: SR ECG 04/02/2017 : NSR at 77/min with LAE, LVH with assctd repol abn (no old) Echo here 04/03: mod LVH (concentric); nl LVSF. nl RV. nl LA. mild AI/MR/TR. normal aortic root. small effusion chest CT: Mixed consolidative and groundglass opacity in RUL c/w pna. Small bibasilar layering pleural effusions. Ascending aorta 4.1 cm. PA dilation ( 3.6 cm). Liver findings noted. Assessment/Plan 36 yo female with secondary HTN (hyperaldo) in [address] Luigi Dunham and hypertensive specialist Dr Vargas ([facility]) admitted with viral like illness and hypertensive crisis. Concerns for cardiomegally on CXR hypertensive emergency, known Conn syndrome/hyperaldo - Per report, tolerated aldactone 100 mg qd in past, dose was decr'd to 50 in plans to wean down and do adrenal vein sampling per pt, but this was ultimately deferred -initially bp 250/150 here with cp, vision changes -Nipride drip transitioned to nicardipine drip 04/03. Was able to tolerate PO meds starting 04/03: home spirono (50 qd), amlodipine, clonidine patch, labetalol, doxzosin, lasix with improvement in bp's but still requiring nicardipine drip 04/04. . -04/04: lasix and aldactone stopped today by pmd in response to rising creatinine. -04/05: bp improved with addition of hydralazine, titrate up as needed. cont other htn meds. -consideration of adrenaloma resection as outpatient, patient is linked in to htn specialist (+) Troponin, atyp cp -trop 0.2 x3, not c/w ACS = secondary to htn emergency with underlying signif LVH -ecg not ischemic -initial sx's of nonexertional crampy cp likely related to high bp +/- anxiety-- doubt ACS here. sx's resolved -did not have sx's suggestive of aorta dissection and they resolved promptly on their own. Mild ao dilation, but no flap suspected on CT (non-contrast), CXR reviewed by Dr. Madrigal: no widened mediastinum. Mild asc ao dilation - On BB. BP control as above. CKD vs MADISON component: -creat 4's here, no priors -per critical care +/- renal anemia: -? baseline, appears chronic. Will d/w renal. -defer to hospitalist, crit care
--- NOTE | 2017-04-05 13:55 | PN ---
Physical Exam: SUBJECTIVE: Patient seen and examined Patient resting in bed NAD. No acute events overnight. Afebrile and hemodynamically stable, BP 140-170 systolic off drip. Reports improved urine output. Feels well, denies h/a, visual changes, n/v, sob, cp, abd pain, dysuria , hematuria, flank pain OBJECTIVE: Vital Signs Period Temp Pulse Resp BP Sys/Li Pulse Ox Last 24 Hr 98.6 F-98.8 F 70-86 16-22 133-180/92-130 100-100 GENERAL: Awake, alert, and fully oriented, in no acute distress. HEAD: Normal with no signs of trauma. EYES: Pupils equal, round and reactive to light, extraocular movements intact, sclera anicteric, conjunctiva clear. No lid lag. EARS, NOSE, THROAT: Moist mucous membranes. NECK: supple without JVD LUNGS: Breath sounds equal, clear to auscultation bilaterally. No wheezes, and no crackles. No accessory muscle use. HEART: Regular rate and rhythm, normal S1 and S2 ABDOMEN: Soft, nontender, not distended, normoactive bowel sounds, no guarding, no rebound, no masses. MUSCULOSKELETAL: No CVA tenderness. UPPER EXTREMITIES: 2+ pulses, warm, well-perfused. No cyanosis. No clubbing. No peripheral edema. LOWER EXTREMITIES: 2+ pulses, warm, well-perfused. No calf tenderness. No peripheral edema. NEUROLOGICAL: Cranial nerves II-XII grossly intact. Normal speech. PSYCHIATRIC: Cooperative. Good eye contact. Appropriate mood and affect. SKIN: Warm, dry Laboratory Results - last 24 hr 04/04/17 04/05/17 04/05/17 22:00 05:05 06:00 WBC RBC Hgb Hct MCV MCH MCHC RDW Plt Count MPV Neutrophils % Lymphocytes % Monocytes % Eosinophils % Basophils % Sodium 139 139 Potassium 3.4 L 3.5 Chloride 102 102 Carbon Dioxide 27 28 Anion Gap 10 9 BUN 29 H 30 H Creatinine 4.3 H 4.5 H Creat Clearance w eGFR 10.94 Random Glucose 84 79 Calcium 8.5 8.3 L Phosphorus 4.4 Magnesium 2.4 Total Bilirubin 0.4 D AST 24 D ALT 45 D Alkaline Phosphatase 65 Total Protein 5.6 L Albumin 2.9 L Blood Type Antibody Screen 04/05/17 04/05/17 06:20 06:20 WBC 5.2 RBC 2.58 L Hgb 7.4 L Hct 22.3 L MCV 86.3 MCH 28.6 MCHC 33.2 RDW 16.8 H Plt Count 154 MPV 8.9 Neutrophils % 61.1 D Lymphocytes % 23.0 D Monocytes % 5.5 Eosinophils % 10.2 H D Basophils % 0.2 Sodium Potassium Chloride Carbon Dioxide Anion Gap BUN Creatinine Creat Clearance w eGFR Random Glucose Calcium Phosphorus Magnesium Total Bilirubin AST ALT Alkaline Phosphatase Total Protein Albumin Blood Type AB POSITIVE Antibody Screen Negative Active Medications Generic Name Dose Route Start Last Admin Trade Name Freq PRN Reason Stop Dose Admin Amlodipine Besylate 10 mg 04/02/17 10:00 04/05/17 09:58 Norvasc - PO 10 mg DAILY BRET Administration Artificial Tears 1 drop 04/04/17 23:26 Artificial Tears OU Q6H PRN DRY EYES Aspirin 81 mg 04/03/17 10:00 04/05/17 09:59 Ecotrin - PO 81 mg DAILY BRET Administration Chlorhexidine Gluconate 1 applic 04/02/17 22:00 04/04/17 22:22 Hibiclens For Decolonization - TP 1 applic HS BRET Administration Clonidine HCl 0.3 mg 04/03/17 10:00 04/03/17 09:36 Catapres Tts Patch - TD 0.3 mg Mo@1000 BRET Administration Codeine Sulfate 30 mg 04/04/17 11:03 04/04/17 22:22 Codeine Sulfate - PO 30 mg Q6H PRN Administration PAIN Docusate Sodium 100 mg 04/04/17 14:00 04/05/17 06:15 Colace - PO Not Given TID BRET Doxazosin Mesylate 8 mg 04/02/17 10:00 04/05/17 09:58 Cardura - PO 8 mg DAILY BRET Administration Hydralazine HCl 25 mg 04/04/17 15:45 04/05/17 06:23 Apresoline - PO 25 mg TID BRET Administration CEFTRIAXONE 1 G/50 ML PREMIX 50 mls @ 100 mls/hr 04/02/17 09:00 04/05/17 10: 29 Ceftriaxone 1 Gm-D5w Bag IVPB 04/05/17 23:59 100 mls/hr DAILY BRET Administration Labetalol HCl 600 mg 04/02/17 10:00 12/20/17 09:59 Normodyne - PO 600 mg BID BRET Administration Minoxidil 2.5 mg 04/02/17 10:00 04/05/17 09:59 Lonitin - PO 2.5 mg DAILY BRET Administration Mupirocin 1 applic 04/02/17 10:00 04/05/17 10:24 Bactroban Ointment (For Decolonization) - NS 04/07/17 09:59 1 applic BID BRET Administration Polyethylene Glycol 17 gm 04/04/17 10:45 04/05/17 10:24 Miralax (For Daily Use) - PO 17 grams DAILY BRET Administration Senna 1 tab 04/04/17 10:45 04/05/17 09:59 Senna - PO 1 tab BID BRET Administration Spironolactone 50 mg 04/05/17 10:00 04/05/17 09:58 Aldactone - PO 50 mg DAILY BRET Administration ASSESSMENT/PLAN: This is a 36 yo F with a PMH of poorly controlled HTN (on 4 agents), 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 -possibility of future HD and consideration of AVF discussed with patient HTN emergency -BP goals 160 mmHg systolic -on aldactone 50 d, hydralazine 25 tid, norvasc 10 d, labetalol 600 bid and clonidine patch 0.3 TD. Hold lasix. Can increase Labetalol. -cardiology recommendations appreciated Conn Syndrome -little evidence of benefit with subtotal adrenalectomy -medical management recommended. -Will resume lasix when creat improves. Hepatic cyst -US shows complex hepatic lesion 2.2x1.5 cm -outpatient f/u -will obtain abd MRI results from [facility] Dispo: We will continue to follow the patient. Thank you for this consultative opportunity. Problem List - Problems (1) Hyperaldosteronism Code(s): E26.9 - HYPERALDOSTERONISM, UNSPECIFIED (2) CKD (chronic kidney disease) Code(s): N18.9 - CHRONIC KIDNEY DISEASE, UNSPECIFIED (3) Acute renal failure Code(s): N17.9 - ACUTE KIDNEY FAILURE, UNSPECIFIED (4) Anemia Code(s): D64.9 - ANEMIA, UNSPECIFIED (5) Headache Code(s): R51 - HEADACHE (6) Hypertensive cardiomyopathy Code(s): I11.9 - HYPERTENSIVE HEART DISEASE WITHOUT HEART FAILURE; I43 - CARDIOMYOPATHY IN DISEASES CLASSIFIED ELSEWHERE (7) Hypertensive emergency Code(s): I16.1 - HYPERTENSIVE EMERGENCY (8) Nausea & vomiting Code(s): R11.2 - NAUSEA WITH VOMITING, UNSPECIFIED (9) Adrenal adenoma Code(s): D35.00 - BENIGN NEOPLASM OF UNSPECIFIED ADRENAL GLAND Visit type - Emergency Visit Emergency Visit: Yes ED Registration Date: 04/02/17 Care time: The patient presented to the Emergency Department on the above date and was hospitalized for further evaluation of their emergent condition. - New Patient This patient is new to me today: No - Critical Care Critical Care patient: Yes Total Critical Care Time (in minutes): 35 Critical Care Statement: The care of this patient involved high complexity decision making to prevent further life threatening deterioration of the patient 's condition and/or to evaluate & treat vital organ system(s) failure or risk of failure. - Discharge Referral Referred to [facility] Med [facility].: No
[2017-04-05] MEDS ORDERED: MINERAL OIL ENEMA 133 ML ENEMA PR PRN (14:44)
[2017-04-05] MEDS ORDERED: ARTIFICIAL TEARS (POLYVINYL ALCOHOL 1.4%) OPTH DROPS OU PRN (16:27)
[2017-04-05] MEDS ORDERED: CODEINE SO4 30 MG TABLET PO PRN (16:27)
[2017-04-05 17:13] LABS: URINE APPEARANCE SLCLOUDY; URINE BILIRUBIN NEGATIVE (NEGATIVE); URINE BLOOD NEGATIVE (NEGATIVE); URINE COLOR LTYELLOW; URINE GLUCOSE (UA) NEGATIVE (NEGATIVE); URINE KETONE NEGATIVE (NEGATIVE); URINE NITRITE NEGATIVE (NEGATIVE); URINE UROBILINOGEN NEGATIVE mg/dL (0.2-1.0)
[2017-04-05 17:19] LABS: URINE LEUK ESTERASE 3+ (NEGATIVE); URINE PROTEIN 2+ (NEGATIVE)
[2017-04-05 17:56] LABS: URINE MUCUS RARE; URINE RBC 1 /hpf (0-3); URINE WBC 32 /hpf (3-5)
--- NOTE | 2017-04-05 19:33 | PN ---
Teaching Attending Note Name of Resident: Sonia Burk (Nephrology) ATTENDING PHYSICIAN STATEMENT I saw and evaluated the patient. I reviewed the resident's note and discussed the case with the resident. I agree with the resident's findings and plan as documented. Renal Pt seen and examined at bedside. She denies shortness of breath. Her blood pressure is improving. Current Medications Generic Name Dose Route Start Last Admin Trade Name Freq PRN Reason Stop Dose Admin Amlodipine Besylate 10 mg 04/06/17 10:00 Norvasc - PO DAILY BRET Artificial Tears 1 drop 04/05/17 16:27 Artificial Tears OU Q6H PRN DRY EYES Aspirin 81 mg 04/06/17 10:00 Ecotrin - PO DAILY BRET Clonidine HCl 0.3 mg 04/10/17 10:00 Catapres Tts Patch - TD Mo@1000 BRET Codeine Sulfate 30 mg 04/05/17 16:27 Codeine Sulfate - PO Q6H PRN PAIN Docusate Sodium 100 mg 04/05/17 22:00 Colace - PO TID BRET Doxazosin Mesylate 8 mg 04/06/17 10:00 Cardura - PO DAILY BRET Hydralazine HCl 25 mg 04/05/17 22:00 Apresoline - PO TID BRET CEFTRIAXONE 1 G/50 ML PREMIX 50 mls @ 100 mls/hr 04/06/17 10:00 Ceftriaxone 1 Gm-D5w Bag IVPB DAILY BRET Labetalol HCl 600 mg 04/05/17 22:00 Normodyne - PO BID BRET Mineral Oil 133 ml 04/05/17 14:44 Fleet Mineral Oil Rectal Enema - [place] NOW PRN CONSTIPATION Minoxidil 2.5 mg 04/06/17 10:00 Lonitin - PO DAILY BRET Polyethylene Glycol 17 gm 04/06/17 10:00 Miralax (For Daily Use) - PO DAILY BRET Senna 1 tab 04/05/17 22:00 Senna - PO BID BRET Spironolactone 50 mg 04/06/17 10:00 Aldactone - PO DAILY BRET Last Vital Signs Temp Pulse Resp BP Pulse Ox 98.8 F 72 18 158/111 100 04/05/17 14:00 04/05/17 16:00 04/05/17 16:00 04/05/17 16:00 04/05/17 09:00 Laboratory Tests 04/05/17 04/05/17 06:00 16:30 Sodium 139 Potassium 3.5 Creatinine 4.5 H Protein/Creatinin Ratio Pending cadio s1s2 reg pulm clear GI soft ext neg edema circ pos pulses Impression 1. Conn/hyperaldo 2. htn emergency 3. CKD 4. MADISON 5. HTN poorly controlled 6. non compliance Plan - cont current meds - will continue to titrate medications and improve blood pressure gradually - wound not give fluids - will follow Dr Sunshine
[2017-04-05 21:49] LABS: URINE LEUK ESTERASE 2+ (NEGATIVE)
[2017-04-05] MEDS ORDERED: MUPIROCIN 2% TOPICAL OINTMENT FOR DECOLONIZATION NS SCH (22:00)
[2017-04-05] MEDS ORDERED: CHLORHEXIDINE GLUCONATE 4% CLEANSER FOR DECOLONIZATION TP SCH (22:00)
[2017-04-06] MEDS ORDERED: traZODone HCL 50 MG TABLET (FP) PO ONE (01:15)
[2017-04-06] MEDS: hydrALAZINE HCL 25 MG TABLET (FP) PO SCH (06:24)
[2017-04-06] MEDS: DOCUSATE SODIUM 100 MG CAPSULE (FP) PO SCH (06:24)
[2017-04-06 08:05] LABS: BASO % 0.2 % (0-2.0); EOS % 11.1 % (0-4.5); MCH 28.3 pg (25.7-33.7); MCHC 32.8 g/dl (32.0-36.0); MEAN CELL VOLUME 86.2 fl (80-96); MEAN PLT VOLUME 8.8 fl (7.5-11.1); NEUT % 66.8 % (42.8-82.8); PLATELET COUNT 151 K/MM3 (134-434); RDW 17.4 % (11.6-15.6); WHITE BLOOD COUNT 4.6 K/mm3 (4.0-10.0)
[2017-04-06 08:38] LABS: ANION GAP 10 (8-16); CALCIUM 9.1 mg/dL (8.5-10.1); CO2 28 mmol/L (21-32); CREATININE 4.4 mg/dL (0.55-1.02); GLUCOSE,RANDOM 84 mg/dL (74-106)
[2017-04-06] MEDS: SPIRONOLACTONE 25 MG TABLET (FP) PO SCH ×2 (08:43→11:23)
[2017-04-06] MEDS: amLODIPine BESYLATE 10 MG TABLET (FP) PO SCH ×2 (08:44→11:24)
[2017-04-06] MEDS: MINOXIDIL 2.5 MG TABLET PO SCH ×2 (08:47→11:23)
[2017-04-06] MEDS ORDERED: PT OWN MED DRAWER 7, Y5N ONE (08:47)
[2017-04-06] MEDS: LABETALOL HCL 200 MG TABLET (FP) PO SCH ×2 (08:48→11:24)
[2017-04-06] MEDS: DOXAZOSIN MESYLATE 4 MG TABLET PO SCH ×2 (08:48→11:23)
[2017-04-06] MEDS ORDERED: POTASSIUM CHLORIDE TABS 20 MEQ TABLET.ER (FP) PO ONE ×3 (09:03→16:00)
[2017-04-06] MEDS ORDERED: hydrALAZINE HCL 50 MG TABLET (FP) PO SCH (09:18)
[2017-04-06 09:41] VITALS: TEMP 98.1
[2017-04-06] MEDS: NICARDIPINE 25 MG in DEXTROSE 5%-WATER - 240 ML IVPB SCH (09:52)
[2017-04-06] MEDS ORDERED: ASPIRIN COATED 81 MG TABLET.EC PO SCH (10:00)
[2017-04-06] MEDS ORDERED: CEFTRIAXONE 1 G/50 ML PREMIX 50 ML IVPB SCH (10:00)
[2017-04-06] MEDS ORDERED: POLYETHYLENE GLYCOL 3350 119 GM BTL PO SCH (10:00)
--- NOTE | 2017-04-06 10:35 | PN ---
Progress Note (short form) - Note Progress Note: Chief Complaint: htn emergency History of Present Illness: no cp, palps, dizziness, sob. Current Medications Generic Name Dose Route Start Last Admin Trade Name Freq PRN Reason Stop Dose Admin Amlodipine Besylate 10 mg 04/06/17 10:00 04/06/17 08:44 Norvasc - PO 10 mg DAILY BRET Administration Artificial Tears 1 drop 04/05/17 16:27 Artificial Tears OU Q6H PRN DRY EYES Aspirin 81 mg 04/06/17 10:00 Ecotrin - PO DAILY BRET Clonidine HCl 0.3 mg 04/10/17 10:00 Catapres Tts Patch - TD Mo@1000 BRET Codeine Sulfate 30 mg 04/05/17 16:27 04/06/17 06:37 Codeine Sulfate - PO 30 mg Q6H PRN Administration PAIN Docusate Sodium 100 mg 04/05/17 22:00 04/06/17 06:24 Colace - PO 100 mg TID BRET Administration Doxazosin Mesylate 8 mg 04/06/17 10:00 04/06/17 08:48 Cardura - PO 8 mg DAILY BRET Administration Hydralazine HCl 50 mg 04/06/17 09:18 Apresoline - PO TID BRET CEFTRIAXONE 1 G/50 ML PREMIX 50 mls @ 100 mls/hr 04/06/17 10:00 Ceftriaxone 1 Gm-D5w Bag IVPB DAILY BRET Labetalol HCl 600 mg 04/05/17 22:00 04/06/17 08:48 Normodyne - PO 600 mg BID BRET Administration Mineral Oil 133 ml 04/05/17 14:44 Fleet Mineral Oil Rectal Enema - VT NOW PRN CONSTIPATION Minoxidil 2.5 mg 04/06/17 10:00 04/06/17 08:47 Lonitin - PO 2.5 mg DAILY BRET Administration Polyethylene Glycol 17 gm 04/06/17 10:00 Miralax (For Daily Use) - PO DAILY BRET Potassium Chloride 20 meq 04/06/17 14:00 K-Dur - PO 04/06/17 14:01 ONCE ONE Senna 1 tab 04/05/17 22:00 04/05/17 22:58 Senna - PO 1 tab BID BRET Administration Spironolactone 50 mg 04/06/17 10:00 04/06/17 08:43 Aldactone - PO 50 mg DAILY BRET Administration - Objective Vital Signs: Vital Signs Period Temp Pulse Resp BP Sys/Li Pulse Ox Last 24 Hr 98.1 F-98.8 F 72-77 18-22 156-178/101-120 99 Constitutional: Yes: Well Nourished, No Distress, Eyes: No: Sclera Icterus HENT: No: Nasal Congestion Respiratory: Yes: CTA Bilaterally. No: Accessory Muscle Use, Rales, Wheezes Gastrointestinal: Yes: Normal Bowel Sounds. No: Distention, Hepatomegaly, Palpable Mass, Tenderness Cardiovascular: Yes: Regular Rate and Rhythm JVD: No Heart Sounds: Yes: S1, S2. No: Gallop Murmur: 2/6 systolic murmur at sternal border. No: Diastolic Murmur Extremities: No: Cold Edema: Yes (trace pretib) Peripheral Pulses: 2+ Left Carotid, 2+ Right Carotid, 2+ Left Doralis Pedis, 2+ Right Dorsalis Pedis Integumentary: No: Jaundice Neurological: Yes: Alert, Oriented (x3) Psychiatric: No: Agitated Labs: CBC, BMP 04/06/17 06:00 04/06/17 06:00 ECG 04/02/2017 : NSR at 77/min with LAE, LVH with assctd repol abn (no old) Echo here 04/03: mod LVH (concentric); nl LVSF. nl RV. nl LA. mild AI/MR/TR. normal aortic root. small effusion chest CT: Mixed consolidative and groundglass opacity in RUL c/w pna. Small bibasilar layering pleural effusions. Ascending aorta 4.1 cm. PA dilation ( 3.6 cm). Liver findings noted. Assessment/Plan 36 yo female with secondary HTN (hyperaldo) in [address] Luigi Dunham and hypertensive specialist Dr Vargas ([facility]) admitted with viral like illness and hypertensive crisis. Concerns for cardiomegally on CXR hypertensive emergency, known Conn syndrome/hyperaldo - Per report, tolerated aldactone 100 mg qd in past, dose was decr'd to 50 in plans to wean down and do adrenal vein sampling per pt, but this was ultimately deferred -initially bp 250/150 here with cp, vision changes -Nipride drip transitioned to nicardipine drip 04/03. Was able to tolerate PO meds starting 04/03: home spirono (50 qd), amlodipine, clonidine patch, labetalol, doxzosin, lasix with improvement in bp's but still requiring nicardipine drip 04/04. . -04/04: lasix and aldactone stopped today by pmd in response to rising creatinine. -04/05: bp improved with addition of hydralazine, titrate up as needed. cont other htn meds. -04/06: will increase hydralazine to 50 tid for better bp control -consideration of adrenaloma resection as outpatient, patient is linked in to htn specialist (+) Troponin, atyp cp -trop 0.2 x3, not c/w ACS = secondary to htn emergency with underlying signif LVH -ecg not ischemic -initial sx's of nonexertional crampy cp likely related to high bp +/- anxiety-- doubt ACS here. sx's resolved -did not have sx's suggestive of aorta dissection and they resolved promptly on their own. Mild ao dilation, but no flap suspected on CT (non-contrast), CXR reviewed by Dr. Madrigal: no widened mediastinum. Mild asc ao dilation - On BB. BP control as above. CKD vs MADISON component: -creat 4's here, no priors -per renal
[2017-04-06 10:57] VITALS: BP 147/94; PULSE 77
[2017-04-06] MEDS: SENNOSIDES 8.6MG TABLET (FP) PO SCH (11:32)
--- NOTE | 2017-04-06 12:55 | DS ---
Physical Exam: SUBJECTIVE: Patient seen and examined. No acute events overnight. Pt states that her headache has resolved with codeine. She had a bowel movement. She denies chest pain, shortness of breath, neurologic symptoms, abdominal pain, n/v/d/c, and dysuria. OBJECTIVE: Vital Signs Period Temp Pulse Resp BP Sys/Li Pulse Ox Last 24 Hr 98.1 F-98.8 F 72-77 18-22 147-178/94-117 99 PHYSICAL EXAM GENERAL: middle-aged female, lying in bed, AAOx3, in NAD HEENT: NC, AT, EOMI LUNGS: CTAB, no rales, no wheezing HEART: regular rate, regular rhythm, no murmurs ABDOMEN: Soft, nontender, nondistended, normoactive bowel sounds, no guarding, no rebound, no hepatosplenomegaly, no masses. EXTREMITIES: 2+ pulses, warm, well-perfused, no edema. NEUROLOGICAL: Cranial nerves II through XII grossly intact. motor strength 5/5 in b/l UE and LEs, b/l sensory function intact to touch, reflexes 2+. Normal speech, gait not observed. LABS Laboratory Results - last 24 hr 04/05/17 04/05/17 04/06/17 16:30 16:30 06:00 WBC 4.6 RBC 2.68 L Hgb 7.6 L Hct 23.1 L MCV 86.2 MCH 28.3 MCHC 32.8 RDW 17.4 H Plt Count 151 MPV 8.8 Neutrophils % 66.8 Lymphocytes % 16.8 D Monocytes % 5.1 Eosinophils % 11.1 H Basophils % 0.2 Sodium Potassium Chloride Carbon Dioxide Anion Gap BUN Creatinine Random Glucose Calcium Urine Color Ltyellow Urine Appearance Slcloudy Urine pH 6.0 Ur Specific [place] 1.011 Urine Protein 2+ H Urine Glucose (UA) Negative Urine Ketones Negative Urine Blood Negative Urine Nitrite Negative Urine Bilirubin Negative Urine Urobilinogen Negative Ur Leukocyte Esterase 2+ H Urine WBC (Auto) 32 Urine RBC (Auto) 1 Ur Epithelial Cells Rare Urine Mucus Rare U Random Total Protein 111 H Urine Creatinine 90.0 Protein/Creatinin Ratio 1.233 04/06/17 06:00 WBC RBC Hgb Hct MCV MCH MCHC RDW Plt Count MPV Neutrophils % Lymphocytes % Monocytes % Eosinophils % Basophils % Sodium 139 Potassium 3.3 L Chloride 101 Carbon Dioxide 28 Anion Gap 10 BUN 29 H Creatinine 4.4 H Random Glucose 84 Calcium 9.1 Urine Color Urine Appearance Urine pH Ur Specific [place] Urine Protein Urine Glucose (UA) Urine Ketones Urine Blood Urine Nitrite Urine Bilirubin Urine Urobilinogen Ur Leukocyte Esterase Urine WBC (Auto) Urine RBC (Auto) Ur Epithelial Cells Urine Mucus U Random Total Protein Urine Creatinine Protein/Creatinin Ratio US abdomen: b/l echogenic renal cortices. complex cystic lesoin in right hepatic lobe that is 2.2 x 1.5cm. right renal cyst CT chest: RUL PNA, small layering effusions Head CT: negative EKG: QTc of 488 HOSPITAL COURSE: Date of Admission:04/02/17 Date of Discharge: 04/06/17 36F w/ hx of hyperaldosteronism, uncontrolled HTN, and CKD who presented with acute onset N/V, BOYER, and chest pain, and was found to have hypertensive emergency with MADISON, pulmonary edema, and demand ischemia. She was started on a nitroprusside drip and then switched to a nicardipine drip until she was able to tolerate po meds. Pt was found to have a RUL PNA and finished a course of cefriaxone for it. She was continuously hypokalemic requiring daily repletion. Her hemoglobin has been steadily downtrending from 8.6 on admission to as low as 7.6. Her creatinine increased to 4.5. Her troponins peaked at 0.28, and her pulmonary edema resolved. On 6th day of hospitalization, pt left AMA. Her BP was still in 160-170s/110s, and was not optimally controlled yet. Pt was made aware of the risks and complications that could arise from leaving AMA, and she accepted them and signed an AMA form. Pt given referrals for PCP, nephrology, cardiology, and hematology, and she was told to follow up within the next one to two weeks. She was discharged on all her same home medications with the addition of hydralazine 25mg TID. -Vinh Dumont MD PGY1 Minutes to complete discharge: 35 Discharge Summary Reason For Visit: HYPOKALEMIA, ACUTE RENAL FAILURE Current Active Problems Acute renal failure (Acute) Adrenal adenoma (Acute) CKD (chronic kidney disease) (Acute) Headache (Acute) Heart failure (Acute) Hyperaldosteronism (Acute) Hypertensive cardiomyopathy (Acute) Hypertensive emergency (Acute) Hypokalemia (Acute) Nausea & vomiting (Acute) Anemia (Chronic) Hypoaldosteronism (Chronic) Condition: Improved - Instructions Diet, Activity, Other Instructions: You presented with a severe headache and were found to have hypertensive emergency which is a significantly elevated blood pressure with signs of end organ damage. In your case, your kidneys were damaged. Your blood pressure was slowly decreased with multiple medications. It is currently 160-170s/110s which is still too high and can be dangerous. We recommend that you remain in the hospital to optimize your BP. You were also treated for a pneumonia with antibiotics. If you leave against medical advice: Take all of the blood pressure medications as documented in your discharge form. 1. follow up with your PCP within 3 days. If you don't have one, we have referred you to Dr. Wilson. 2. follow up with cardiology within a week. If you don't have one, we have referred you to Dr. Alexander. 3. follow up with nephrology within a week. If you don't have one, we have referred you to Dr. Sunshine. 4. follow up with hematology in a week for your low hemoglobin. If you don't have one, we have referred you to Dr. Shepherd. If you develop any worsening headache, shortness of breath, chest pain, or other severe symptoms, return to the ED. Referrals: Zachariah Wilson MD [Staff Physician] - Howard Alexander MD [Staff Physician] - Luba Shepherd MD [Staff Physician] - Stoney Sunshine MD [Staff Physician] - Disposition: AGAINST MEDICAL ADVICE - Home Medications Comprehensive Discharge Medication List: Ambulatory Orders Amlodipine Besylate 10 mg PO DAILY 04/01/17 Labetalol HCl [Normodyne -] 600 mg PO BID 04/01/17 Spironolactone 50 mg PO DAILY 04/01/17 Clonidine Patch [Catapres Tts Patch -] 0.3 mg TD WEEKLY 04/02/17 Doxazosin Mesylate 8 mg PO DAILY 04/02/17 Minoxidil [Minoxidil -] 2.5 mg PO DAILY 04/02/17 Hydralazine HCl [Apresoline -] 25 mg PO TID #90 tablet 04/06/17 This patient is new to me today: No Emergency Visit: Yes ED Registration Date: 04/02/17 Care time: The patient presented to the Emergency Department on the above date and was hospitalized for further evaluation of their emergent condition. Critical Care patient: No - Discharge Referral Referred to [facility] Med P.C.: No
--- NOTE | 2017-04-06 16:08 | PN ---
Teaching Attending Note Name of Resident: Vinh Dumont ATTENDING PHYSICIAN STATEMENT I saw and evaluated the patient. I reviewed the resident's note and discussed the case with the resident. I agree with the resident's findings and plan as documented. SUBJECTIVE: Patient is comfortable with no acute distress. OBJECTIVE: Vital Signs Temperature 98.1 F 04/06/17 08:00 Pulse Rate 77 04/06/17 10:56 Respiratory Rate 18 04/06/17 10:56 Blood Pressure 147/94 04/06/17 10:56 O2 Sat by Pulse Oximetry (%) 98 04/06/17 09:00 CBCD WBC 4.6 K/mm3 (4.0-10.0) 04/06/17 06:00 RBC 2.68 M/mm3 (3.60-5.2) L 04/06/17 06:00 Hgb 7.6 GM/dL (10.7-15.3) L 04/06/17 06:00 Hct 23.1 % (32.4-45.2) L 04/06/17 06:00 MCV 86.2 fl (80-96) 04/06/17 06:00 MCHC 32.8 g/dl (32.0-36.0) 04/06/17 06:00 RDW 17.4 % (11.6-15.6) H 04/06/17 06:00 Plt Count 151 K/MM3 (134-434) 04/06/17 06:00 MPV 8.8 fl (7.5-11.1) 04/06/17 06:00 CMP Sodium 139 mmol/L (136-145) 04/06/17 06:00 Potassium 3.3 mmol/L (3.5-5.1) L 04/06/17 06:00 Chloride 101 mmol/L (98-107) 04/06/17 06:00 Carbon Dioxide 28 mmol/L (21-32) 04/06/17 06:00 Anion Gap 10 (8-16) 04/06/17 06:00 BUN 29 mg/dL (7-18) H 04/06/17 06:00 Creatinine 4.4 mg/dL (0.55-1.02) H 04/06/17 06:00 Creat Clearance w eGFR 10.94 (>60) 04/05/17 06:00 Random Glucose 84 mg/dL (74-106) 04/06/17 06:00 Calcium 9.1 mg/dL (8.5-10.1) 04/06/17 06:00 Total Bilirubin 0.4 mg/dL (0.2-1.0) D 04/05/17 06:00 AST 24 U/L (15-37) D 04/05/17 06:00 ALT 45 U/L (12-78) D 04/05/17 06:00 Alkaline Phosphatase 65 U/L (45-117) 04/05/17 06:00 Total Protein 5.6 g/dl (6.4-8.2) L 04/05/17 06:00 Albumin 2.9 g/dl (3.4-5.0) L 04/05/17 06:00 CARDIAC ENZYMES Creatine Kinase 133 IU/L (26-192) 04/02/17 16:27 Troponin I 0.26 ng/ml (0.00-0.05) H 04/02/17 16:27 Home Medications Medication Instructions Recorded Amlodipine Besylate 10 mg PO DAILY 04/01/17 Labetalol HCl [Normodyne -] 600 mg PO BID 04/01/17 Spironolactone 50 mg PO DAILY 04/01/17 Clonidine Patch [Catapres Tts 0.3 mg TD WEEKLY 04/02/17 Patch -] Doxazosin Mesylate 8 mg PO DAILY 04/02/17 Minoxidil [Minoxidil -] 2.5 mg PO DAILY 04/02/17 Hydralazine HCl [Apresoline -] 25 mg PO TID #90 tablet 04/06/17 PE: per resident's note Patient signed AMA against medical advice.Risks were explained. Assessment/Plan: Patient is a 36 y/o lady with h/o hyperaldosteronism, uncontrolled HTN , CKD , , who presented with N/V, BOYER, and chest pain, and was found to have hypertensive emergency # HTN emergency: s/p Nicardipine gtt , switched to oral supplements, will continue to monitor., Nephro is on the case and will # MADISON on CKD: with baseline of 2.3 in september, further w/u by # Elevated trop: likely due to demand ischemia in setting of elevated BP. # Possible PNA ( CAP) on ceftriaxone day 08/19 . completed the course # hypokalemia , monitor and reploete DVT px SCDs
[2017-04-10] MEDS ORDERED: cloNIDine-TTS 0.3 MG /24 HRS PATCH.TDWK TD SCH (10:00)
== END 2017-04-06 13:07 | disposition left against medical advice (07) | DRG 199 ==
LOC: JER 23:05 → JERBED 04-02 04:18 → UNDOADMIN 04-02 04:20 → JERBED 04-02 04:20 → JICU 04-02 06:39 → J8W 04-05 16:29
PROVIDERS: ADMIT Internal Medicine; ATTEND Internal Medicine
DX: I16.1 Hypertensive emergency (principal); J18.9 Pneumonia, unspecified organism; N17.9 Acute kidney failure, unspecified; I24.8 Other forms of acute ischemic heart disease; K76.89 Other specified diseases of liver; E87.1 Hypo-osmolality and hyponatremia; N39.0 Urinary tract infection, site not specified; I13.0 Hypertensive heart and chronic kidney disease with heart failure and stage 1 through stage 4 chronic kidney disease, or unspecified chronic kidney disease; D63.1 Anemia in chronic kidney disease; Z87.891 Personal history of nicotine dependence; Z91.14 Patient's other noncompliance with medication regimen; E87.6 Hypokalemia; E26.01 Conn's syndrome; N18.9 Chronic kidney disease, unspecified; D64.9 Anemia, unspecified; R51 Headache; K59.00 Constipation, unspecified; R07.89 Other chest pain; I77.819 Aortic ectasia, unspecified site; R11.0 Nausea
CPT/HCPCS: 36415; 70450-TC; 71020-TC; 71250-TC; 76700-TC; 80048; 80053; 81003; 81015; 82436; 82550; 82553; 82570; 82607; 82728; 82746; 83540; 83550; 83690; 83735; 83880; 84100; 84132; 84133; 84156; 84300; 84484; 84540; 84703; 85025; 85027; 86850; 86900; 86901; 87086; 87205; 87633; 87804; 93005; 93010; 93306-TC; 93880-TC; 99285-25; J1644

== ENCOUNTER 2017-06-16 07:05 | Inpatient (IN) | payer OTHER ==
--- NOTE | 2017-06-16 07:31 | PDOC ---
History of Present Illness - General History Source: Patient Exam Limitations: No Limitations - History of Present Illness Initial Comments: 06/16/17 08:51 The patient is a 37 year old female with a significant PMH of acute renal failure, HTN and hyperaldosteronism who presents to the emergency department with multiple complaints including vomiting, headache, and shortness of breath beginning approximately 3 days ago. The patient reports being unable to tolerate liquids, solids, or her HTN medication. She reports tolerating Motrin, Excedrin, and Tylenol to minimal relief. She describes her shortness of breath as feeling like she is drowning. She describes her headache as a constant sensation localized in her frontal region which had a sudden onset. The patient also presents with an elevated blood pressure as she was unable to tolerate her medication. The patient was evaluated here in March for similar symptoms of nausea, vomiting, and elevated BP in the setting of kidney failure and was admitted for 4 days but left AMA. She reports not seeing a [employer] recently for her renal failure and missed an appointment she was scheduled for yesterday. She reports being evaluated at the [place] for her kidney function but it is unclear how compliant she has been with treatment. Of note, the patients son was positive for flu last week. The patient denies chest pain and dizziness. Denies fever, diarrhea and constipation. Denies dysuria, frequency, urgency and hematuria. Allergies: NKA Past surgical history: None reported. Social history: Former smoker. No reported alcohol or drug use. PCP: None reported. <Felix Mack - Last Filed: 06/16/17 08:51> <Lisa Bingham - Last Filed: 06/16/17 10:49> - General Chief Complaint: Headache Stated Complaint: VOMITING Time Seen by Provider: 06/16/17 07:29 Past History <Felix Mack - Last Filed: 06/16/17 08:51> - Past Medical History Anemia: No COPD: No - Immunization History Immunization Up to Date: Yes - Suicide/Smoking/Psychosocial Hx Smoking History: Never smoked Have you smoked in the past 12 months: Yes If you are a former smoker, when did you quit?: january Information on smoking cessation initiated: No Hx Alcohol Use: No Drug/Substance Use Hx: No Substance Use Type: None Hx Substance Use Treatment: No <iLsa Bingham - Last Filed: 06/16/17 10:49> - Past Medical History Allergies/Adverse Reactions: Allergies Allergy/AdvReac Type Severity Reaction Status Date / Time No Known Allergies Allergy Verified 06/16/17 07:14 Home Medications: Ambulatory Orders Amlodipine Besylate 10 mg PO DAILY 04/01/17 Labetalol HCl [Normodyne -] 600 mg PO BID 04/01/17 Spironolactone 50 mg PO DAILY 04/01/17 Clonidine Patch [Catapres Tts Patch -] 0.3 mg TD WEEKLY 04/02/17 Doxazosin Mesylate 8 mg PO DAILY 04/02/17 Minoxidil [Minoxidil -] 2.5 mg PO DAILY 04/02/17 hydrALAZINE HCL [Apresoline -] 25 mg PO TID #90 tablet 04/06/17 Review of Systems - Review of Systems Able to Perform ROS?: Yes Comments:: 06/16/17 08:52 GENERAL/CONSTITUTIONAL: (+) Body aches. (+) Chills. No fever. No weakness. HEAD, EYES, EARS, NOSE AND THROAT: No change in vision. No ear pain or discharge. No sore throat. CARDIOVASCULAR: (+) Shortness of breath. No chest pain. RESPIRATORY: No cough, wheezing, or hemoptysis. GASTROINTESTINAL: (+) Vomiting. (+) Nausea. No diarrhea or constipation. GENITOURINARY: No dysuria, frequency, or change in urination. MUSCULOSKELETAL: No joint pain. No neck or back pain. SKIN: No rash NEUROLOGIC: (+) Headache. No vertigo, loss of consciousness, or change in strength. ENDOCRINE: No increased thirst. No abnormal weight change. HEMATOLOGIC/LYMPHATIC: No anemia, easy bleeding, or history of blood clots. ALLERGIC/IMMUNOLOGIC: No hives or skin allergy. <Felix Mack - Last Filed: 06/16/17 08:51> *Physical Exam - Vital Signs Last Vital Signs Temp Pulse Resp BP Pulse Ox 98.0 F 95 H 16 215/140 96 06/16/17 07:16 06/16/17 08:25 06/16/17 08:25 06/16/17 08:25 06/16/17 08:25 - Physical Exam Comments: 06/16/17 08:52 GENERAL: Awake, alert, and fully oriented, in no acute distress HEAD: No signs of trauma EYES: PERRLA, EOMI, sclera anicteric, conjunctiva clear ENT: Auricles normal inspection, hearing grossly normal, nares patent, oropharynx clear without exudates. Moist mucosa NECK: Normal ROM, supple, no lymphadenopathy, JVD, or masses LUNGS: Breath sounds equal, clear to auscultation bilaterally. No wheezes, and no crackles HEART: (+) Grade 2 systolic murmur. Regular rate and rhythm, normal S1 and S2, no rubs or gallops ABDOMEN: (+) Mild epigastric tenderness. Normoactive bowel sounds. No guarding , no rebound. No masses EXTREMITIES: Normal range of motion, no edema. No clubbing or cyanosis. No cords, erythema, or tenderness NEUROLOGICAL: Cranial nerves II through XII grossly intact. Normal speech, normal gait SKIN: Warm, Dry, normal turgor, no rashes or lesions noted. <Felix Mack - Last Filed: 06/16/17 08:51> - Vital Signs Last Vital Signs Temp Pulse Resp BP Pulse Ox 98.0 F 88 16 190/85 99 06/16/17 07:16 06/16/17 07:16 06/16/17 07:16 06/16/17 07:16 06/16/17 07:16 <Lisa Bingham - Last Filed: 06/16/17 10:49> ED Treatment Course - LABORATORY CBC & Chemistry Diagram: 06/16/17 08:30 06/16/17 08:30 - ADDITIONAL ORDERS Additional order review: 06/16/17 08:30 RBC 2.98 L MCV 88.0 MCHC 34.2 RDW 15.5 D MPV 7.9 D Neutrophils % 82.0 D Lymphocytes % 11.0 D Monocytes % 5.1 Eosinophils % 1.6 D Basophils % 0.3 - Medications Given in the ED: ED Medications Discontinued Medications Generic Name Dose Route Start Last Admin Trade Name Freq PRN Reason Stop Dose Admin Labetalol HCl 10 mg 06/16/17 08:13 06/16/17 08:30 Normodyne Injection - IVPUSH 06/16/17 08:14 10 mg ONCE ONE Administration Metoclopramide HCl 10 mg 06/16/17 08:15 06/16/17 08:33 Reglan Injection - IVPUSH 06/16/17 08:16 10 mg ONCE ONE Administration <Felix Mack - Last Filed: 06/16/17 08:51> - LABORATORY CBC & Chemistry Diagram: 06/16/17 08:30 06/16/17 08:30 <Lisa Bingham - Last Filed: 06/16/17 10:49> Medical Decision Making - Medical Decision Making 06/16/17 09:11 Pt presents to the ED complaining of generalized malaise, nausea and vomiting and diffuse frontal headache. History of renal failure for which she was seen here in March. Patient reports that she has been compliant with her antihypertensive meds, but her nephrology follow up has been unclear. Patient is concerned because her daughter has the flu, and she is concerned that she has the flu, as well. However, given her history and her lack of follow up, I am concerned that worsening renal failure and uremia may be causing her symptoms. Given her headache, will check CT head to evaluate for intracranial bleed. Patient is severely hypertensive in the ED--will treat with IV labetolol. Given her shortness of breath, will check CXR and BNP to evaluate for pulmonary edema. Will likely admit to medicine. 06/16/17 09:17 <Lisa Bingham - Last Filed: 06/16/17 10:49> *DC/Admit/Observation/Transfer - Attestations Scribe Attestion: 06/16/17 08:53 Documentation prepared by Felix Mack, acting as medical imaging director for Lisa Bingham MD. <Felix Mack - Last Filed: 06/16/17 08:51> - Discharge Dispostion Admit: Yes <Lisa Binghma - Last Filed: 06/16/17 10:49> Diagnosis at time of Disposition: NSTEMI (non-ST elevated myocardial infarction) - Discharge Dispostion Condition at time of disposition: Good
--- NOTE | 2017-06-16 07:34 | PDOC ---
History of Present Illness - General Chief Complaint: Headache Stated Complaint: VOMITING Time Seen by Provider: 06/16/17 07:29 Past History - Past Medical History Allergies/Adverse Reactions: Allergies Allergy/AdvReac Type Severity Reaction Status Date / Time No Known Allergies Allergy Verified 06/16/17 07:14 Home Medications: Ambulatory Orders Amlodipine Besylate 10 mg PO DAILY 04/01/17 Labetalol HCl [Normodyne -] 600 mg PO BID 04/01/17 Spironolactone 50 mg PO DAILY 04/01/17 Clonidine Patch [Catapres Tts Patch -] 0.3 mg TD WEEKLY 04/02/17 Doxazosin Mesylate 8 mg PO DAILY 04/02/17 Minoxidil [Minoxidil -] 2.5 mg PO DAILY 04/02/17 hydrALAZINE HCL [Apresoline -] 25 mg PO TID #90 tablet 04/06/17 Anemia: No COPD: No - Immunization History Immunization Up to Date: Yes - Suicide/Smoking/Psychosocial Hx Smoking History: Never smoked Have you smoked in the past 12 months: Yes If you are a former smoker, when did you quit?: january Information on smoking cessation initiated: No Hx Alcohol Use: No Drug/Substance Use Hx: No Substance Use Type: None Hx Substance Use Treatment: No *Physical Exam - Vital Signs Last Vital Signs Temp Pulse Resp BP Pulse Ox 98.0 F 88 16 190/85 99 06/16/17 07:16 06/16/17 07:16 06/16/17 07:16 06/16/17 07:16 06/16/17 07:16
[2017-06-16] MEDS ORDERED: LABETALOL HCL 5 MG/1 ML (100MG/20 ML VIAL) IVPUSH ONE ×2 (08:13→09:16)
[2017-06-16] MEDS ORDERED: METOCLOPRAMIDE HCL INJECTION 10 MG/2 ML VIAL IVPUSH ONE (08:15)
[2017-06-16] MEDS ORDERED: METOCLOPRAMIDE HCL INJECTION 10 MG/2 ML VIAL ONE (08:25)
[2017-06-16] MEDS ORDERED: LABETALOL HCL 5 MG/1 ML (200MG/40ML VIAL) IVPB ONE (08:25)
[2017-06-16 08:41] LABS: BASO % 0.3 % (0-2.0); EOS % 1.6 % (0-4.5); HEMATOCRIT 26.2 % (32.4-45.2); MCH 30.1 pg (25.7-33.7); MCHC 34.2 g/dl (32.0-36.0); MEAN PLT VOLUME 7.9 fl (7.5-11.1); MONO % 5.1 % (3.8-10.2); PLATELET COUNT 209 K/MM3 (134-434); RBC 2.98 M/mm3 (3.60-5.2); RDW 15.5 % (11.6-15.6); WHITE BLOOD COUNT 5.5 K/mm3 (4.0-10.0)
[2017-06-16 09:14] LABS: URINE APPEARANCE SLCLOUDY; URINE BILIRUBIN NEGATIVE (NEGATIVE); URINE BLOOD NEGATIVE (NEGATIVE); URINE COLOR LTYELLOW; URINE GLUCOSE (UA) NEGATIVE (NEGATIVE); URINE KETONE NEGATIVE (NEGATIVE); URINE NITRITE NEGATIVE (NEGATIVE); URINE UROBILINOGEN NEGATIVE mg/dL (0.2-1.0)
[2017-06-16 09:16] LABS: HCG,QUALITATIVE URINE NEGATIVE
[2017-06-16 09:18] LABS: URINE LEUK ESTERASE 2+ (NEGATIVE); URINE PROTEIN 2+ (NEGATIVE)
[2017-06-16 09:20] LABS: EPI CELLS MODERATE /HPF (FEW); URINE MUCUS RARE
[2017-06-16 09:26] LABS: ALBUMIN 3.8 g/dl (3.4-5.0); ANION GAP 15 (8-16); BLOOD UREA NITROGEN 34 mg/dL (7-18); CALCIUM 9.8 mg/dL (8.5-10.1); CHLORIDE 98 mmol/L (98-107); CO2 27 mmol/L (21-32); GLUCOSE,RANDOM 93 mg/dL (74-106); SODIUM 140 mmol/L (136-145)
[2017-06-16 09:47] LABS: ALK PHOS 67 U/L (45-117); BILIRUBIN,TOTAL 0.9 mg/dL (0.2-1.0); CREATININE 5.1 mg/dL (0.55-1.02); SGOT/AST 22 U/L (15-37); SGPT/ALT 27 U/L (12-78); TOT PROT 7.5 g/dl (6.4-8.2)
[2017-06-16 09:52] LABS: POTASSIUM 2.6 mmol/L (3.5-5.1)
[2017-06-16] MEDS ORDERED: POTASSIUM CHLORIDE TABS 20 MEQ TABLET.ER (FP) PO ONE ×4 (09:53→18:40)
[2017-06-16] MEDS ORDERED: ASPIRIN 81 MG CHEWABLE TABLETS PO ONE (09:55)
--- NOTE | 2017-06-16 09:57 | EKG ---
Test Reason : Blood Pressure : / mmHG Vent. Rate : 082 BPM Atrial Rate : 082 BPM P-R Int : 200 ms QRS Dur : 104 ms QT Int : 472 ms P-R-T Axes : 057 -07 053 degrees QTc Int : 551 ms NORMAL SINUS RHYTHM POSSIBLE LEFT ATRIAL ENLARGEMENT POOR R WAVE PROGRESSION NONSPECIFIC T WAVE ABNORMALITY PROLONGED QT ABNORMAL ECG WHEN COMPARED WITH ECG OF 02-APR-2017 04:11, NONSPECIFIC T WAVE ABNORMALITY, IMPROVED IN INFERIOR LEADS NONSPECIFIC T WAVE ABNORMALITY HAS REPLACED INVERTED T WAVES IN ANTERIOR LEADS QT HAS LENGTHENED Confirmed by MABLE ZHU, ANTONI ([id number]) on 06/16/2017 9:57:14 AM Referred By: Confirmed By:ANTONI AKINS MD
[2017-06-16] MEDS ORDERED: ASPIRIN 81 MG CHEWABLE TABLETS ONE (10:33)
[2017-06-16] MEDS ORDERED: KCL 10 MEQ IVPB 20 MEQ/200 ML INFUS.BAG IVPB ONE (10:34)
[2017-06-16] MEDS ORDERED: ACETAMINOPHEN INJECTION 100 ML IVPB ONE (10:36)
[2017-06-16 10:45] LABS: N-TERMINAL BNP 59875.9 pg/ml (5-125)
[2017-06-16] MEDS ORDERED: FUROSEMIDE 40 MG/4 ML INJECTABLE VIAL IVPUSH ONE (10:51)
[2017-06-16] MEDS: KCL 10 MEQ IVPB 10 MEQ/100 ML INFUS.BAG IVPB SCH ×2 (11:00→12:18)
[2017-06-16] MEDS ORDERED: amLODIPine BESYLATE 10 MG TABLET (FP) PO ONE (11:45)
[2017-06-16] MEDS ORDERED: FUROSEMIDE 40 MG/4 ML INJECTABLE VIAL ONE (12:01)
[2017-06-16] MEDS ORDERED: ACETAMINOPHEN 325 MG TABLET (FP) PO PRN (12:25)
[2017-06-16] MEDS ORDERED: amLODIPine BESYLATE 5 MG TABLET (FP) ONE (12:39)
--- NOTE | 2017-06-16 13:56 | HP ---
CHIEF COMPLAINT: chest pain and headache PCP: PCP in [facility] [phone] HISTORY OF PRESENT ILLNESS: This is a 37 year old female with a significant PMH of uncontrolled HTN, hyperaldosteronism, CKD who presented to the hospital complaining of chest pain and headache that started 2 days ago. She woke up on Monday morning with severe headache that is constant, in frontal area, 10/10 in severity, associated with light sensitivity. She also reports intermittent chest pain, 8/ 10, located on left side of her chest, radiating to her neck, associated with palpitations. She reports several episodes of non bloody, non bilious vomiting and nausea. She took norvasc ad Labetalol in the morning but vomited afterwards. Since her symptoms started, she took OTC different pain medications : Tylenol, Motrin without improvement and decided to come to Emergency Room. She was hospitalized in [facility] in March, stayed in ICU for HTN on nicardipine drip, left AMA. She is non compliant with doctor visits, doesn't remember when was the last time she saw PCP. her son was diagnosed with influenza B last week ad treated with Tamifu. She denies SOB, cough, fever, chills. She denies dizziness, lightheadedness. ER course was notable for: (1)CT head (2)tropnin 0.55, WKG (3)BUN34, Cr 5.1 PAST MEDICAL HISTORY: as above PAST SURGICAL HISTORY: hysterectomy, 4 c sections Social History: Smoking:quit in December 2016, smoked for 20 years 3 cig/day Alcohol:occasionally Drugs:no Family History: Mother: HTN Father: HTN, sickle cell trait lives with children Allergies No Known Allergies Allergy (Verified 06/16/17 07:14) HOME MEDICATIONS: Home Medications Medication Instructions Recorded Amlodipine Besylate 10 mg PO DAILY 04/01/17 Labetalol HCl [Normodyne -] 600 mg PO BID 04/01/17 Spironolactone 50 mg PO DAILY 04/01/17 Clonidine Patch [Catapres Tts 0.3 mg TD WEEKLY 04/02/17 Patch -] Doxazosin Mesylate 16 mg PO DAILY 04/02/17 Minoxidil [Minoxidil -] 7.5 mg PO DAILY 04/02/17 Furosemide [Lasix] 20 mg PO DAILY 06/16/17 REVIEW OF SYSTEMS CONSTITUTIONAL: Absent: fever, chills, diaphoresis, generalized weakness, malaise, loss of appetite, weight change HEENT: Absent: rhinorrhea, nasal congestion, throat pain, throat swelling, difficulty swallowing CARDIOVASCULAR: chest pain, palpitations, Absent: syncope, irregular heart rate, lightheadedness, peripheral edema RESPIRATORY: Absent: cough, shortness of breath, dyspnea with exertion, orthopnea, wheezing, GASTROINTESTINAL:nausea, vomiting, Absent: abdominal pain, abdominal distension, diarrhea, constipation GENITOURINARY: Absent: dysuria, frequency, urgency, hesitancy, hematuria, flank pain, genital pain MUSCULOSKELETAL: neck pain Absent: myalgia, arthralgia, joint swelling, back pain, SKIN: Absent: rash, itching ENDOCRINE: Absent: unexplained weight gain, unexplained weight loss NEUROLOGIC: headache Absent: focal weakness or paresthesias, dizziness, unsteady gait, seizure, mental status changes PSYCHIATRIC: Absent: anxiety, depression PHYSICAL EXAMINATION Vital Signs - 24 hr 06/16/17 06/16/17 06/16/17 07:16 08:25 09:15 Temperature 98.0 F Pulse Rate 88 Pulse Rate [ 95 H 86 Right] Respiratory 16 16 16 Rate Blood Pressure 190/85 Blood Pressure 215/140 197/138 [Right Arm] O2 Sat by Pulse 99 96 98 Oximetry (%) 06/16/17 06/16/17 06/16/17 09:59 11:30 12:24 Temperature Pulse Rate Pulse Rate [ 86 92 H 89 Right] Respiratory 18 Rate Blood Pressure Blood Pressure 202/129 192/139 220/147 [Right Arm] O2 Sat by Pulse Oximetry (%) GENERAL: Awake, alert, and fully oriented, in no acute distress. HEAD: Normal with no signs of trauma. EYES: Pupils equal, round and reactive to light, extraocular movements intact, sclera anicteric, conjunctiva clear. EARS, NOSE, THROAT: oropharynx clear without exudates. Moist mucous membranes. NECK: Normal range of motion, supple without lymphadenopathy, no JVD, or masses. LUNGS: Breath sounds equal, clear to auscultation bilaterally. No wheezes, and no crackles. No accessory muscle use. HEART: Regular rate and rhythm, normal S1 and S2 without murmur, rub or gallop. ABDOMEN: Soft, nontender, not distended, normoactive bowel sounds, no guarding, no rebound, no masses. MUSCULOSKELETAL: Normal range of motion at all joints. No bony deformities or tenderness. UPPER EXTREMITIES: No cyanosis. No peripheral edema. LOWER EXTREMITIES: 2+ pulses, warm. No calf tenderness. Trace peripheral edema. NEUROLOGICAL: Cranial nerves II-XII intact. Normal speech, no facial asymmetry , motor 5/5, sensation intact, gait not observed. PSYCHIATRIC: Cooperative. Good eye contact. Appropriate mood and affect. SKIN: Warm, dry, normal turgor, no rashes or lesions noted. Laboratory Results - last 24 hr 06/16/17 06/16/17 06/16/17 08:11 08:30 08:30 WBC 5.5 RBC 2.98 L Hgb 9.0 L D Hct 26.2 L MCV 88.0 MCH 30.1 MCHC 34.2 RDW 15.5 D Plt Count 209 D MPV 7.9 D Neutrophils % 82.0 D Lymphocytes % 11.0 D Monocytes % 5.1 Eosinophils % 1.6 D Basophils % 0.3 Sodium 140 Potassium 2.6 L* Chloride 98 Carbon Dioxide 27 Anion Gap 15 BUN 34 H Creatinine 5.1 H Creat Clearance w eGFR 9.42 Random Glucose 93 Calcium 9.8 Total Bilirubin 0.9 D AST 22 ALT 27 Alkaline Phosphatase 67 Creatine Kinase 228 H Creatine Kinase Index 8.7 H* CK-MB (CK-2) < 20.000 H Troponin I 0.55 H B-Natriuretic Peptide 72345.9 H Total Protein 7.5 Albumin 3.8 Serum , Qual Urine Color Ltyellow Urine Appearance Slcloudy Urine pH 6.0 Ur Specific [place] 1.011 Urine Protein 2+ H Urine Glucose (UA) Negative Urine Ketones Negative Urine Blood Negative Urine Nitrite Negative Urine Bilirubin Negative Urine Urobilinogen Negative Ur Leukocyte Esterase 2+ H Urine WBC (Auto) 31 Urine RBC (Auto) 10 Ur Epithelial Cells Moderate Urine Mucus Rare Urine HCG, Qual Negative 06/16/17 08:46 WBC RBC Hgb Hct MCV MCH MCHC RDW Plt Count MPV Neutrophils % Lymphocytes % Monocytes % Eosinophils % Basophils % Sodium Potassium Chloride Carbon Dioxide Anion Gap BUN Creatinine Creat Clearance w eGFR Random Glucose Calcium Total Bilirubin AST ALT Alkaline Phosphatase Creatine Kinase Creatine Kinase Index CK-MB (CK-2) Troponin I B-Natriuretic Peptide Total Protein Albumin Serum , Qual Negative Urine Color Urine Appearance Urine pH Ur Specific [place] Urine Protein Urine Glucose (UA) Urine Ketones Urine Blood Urine Nitrite Urine Bilirubin Urine Urobilinogen Ur Leukocyte Esterase Urine WBC (Auto) Urine RBC (Auto) Ur Epithelial Cells Urine Mucus Urine HCG, Qual ASSESSMENT/PLAN: This is a 37 year old female with a significant PMH of uncontrolled HTN, hyperaldosteronism, CKD who presented to the hospital complaining of chest pain and headache that started 2 days ago. She is admitted for uncontrolled BP, elevated troponons and MADISON on CKD. Hypertensive emergency: possibly related to medication non compliance, adrenal mass, worsened kidney function -her systolic BP is elevated to 200s even after Labetalol, Lasix and Minoxidil given in ED, will strt nicardipine drip and place the pt in ICU, case discussed with ICU team -cardiac monitoring -Head CT done-n acute pathology -decrease BP 25 % in first 24 h Chest pain: -elevated troponin 0.55, will f/u 3 PM, possibly due to demand schemia butwe need to r/o ACS -EKG reviewed, no milan/std, ordered another one for tomorrow in AM -cardiac monitoring -ECHO ordered -Cardiology consultation ordered -pleural effusions noted in CXR -Pulmonary consultation ordered -CXR for tomorrow Headache: -possibly related to BP -CT negative for acute pathology -Tylenol 650 mg Q6H ordered MADISON on CKD: -last year 4.1-4.5, today 5.1 -US kidney ordered -urine electrolytes, protein/creat ordered -Nephrology-Dr Sunshine consulted Hyperaldosteronism: -elevated BP, low K -According to the pt she has adrenal mass and had workup done but her results were nonconclusive so she didn't have sergury done to remove the mass -CT abdomen without contrast (only PO) ordered-the pt refused -urine studies ordered nausea and vomiting: -no more episodes in the hospital Hypokalemia: -2.6 in ED -known to have low K -repleated and will f/u at 3 PM Anemia: -Hgb 9.0 -known to have anemia, no melena, hematemesis reported -iron studies ordered -FOBT ordered DVT PPX; -SCDs -heparin SQ BID F/E/N: no/low K/low sodium with dinner Dispo: ICU, discussed with Dr Barillas and ICU team Medications confirmed with the pt. - Problem List - Problem (1) Acute renal failure Code(s): N17.9 - ACUTE KIDNEY FAILURE, UNSPECIFIED (2) Adrenal adenoma Code(s): D35.00 - BENIGN NEOPLASM OF UNSPECIFIED ADRENAL GLAND (3) CKD (chronic kidney disease) Code(s): N18.9 - CHRONIC KIDNEY DISEASE, UNSPECIFIED (4) Headache Code(s): R51 - HEADACHE (5) Hyperaldosteronism Code(s): E26.9 - HYPERALDOSTERONISM, UNSPECIFIED (6) Hypertensive emergency Code(s): I16.1 - HYPERTENSIVE EMERGENCY (7) Hypokalemia Code(s): E87.6 - HYPOKALEMIA (8) Nausea & vomiting Code(s): R11.2 - NAUSEA WITH VOMITING, UNSPECIFIED (9) Anemia Code(s): D64.9 - ANEMIA, UNSPECIFIED Visit type - Emergency Visit Emergency Visit: Yes ED Registration Date: 06/16/17 Care time: The patient presented to the Emergency Department on the above date and was hospitalized for further evaluation of their emergent condition. - New Patient This patient is new to me today: Yes Date on this admission: 06/16/17 - Critical Care Critical Care patient: Yes Total Critical Care Time (in minutes): 35 Critical Care Statement: The care of this patient involved high complexity decision making to prevent further life threatening deterioration of the patient 's condition and/or to evaluate & treat vital organ system(s) failure or risk of failure. Hospitalist Screening - Colonoscopy Questionnaire Colonoscopy Questionnaire: Colonoscopy Questionnaire - Patient: 50 - 75 years old and never had a screening colonoscopy: No History of colon or rectal polyps, or CA: No History of IBD, Crohn's disease or UC: No History of abdominal radiation therapy as a child: No - Relative: 1 with colon or rectal CA, or polyps at age 60 or younger: No Colon or rectal CA diagnosed at age 45 or younger: No Multiple relatives with colon or rectal CA: No - Outcome: Screening Result: Negative Screen
--- NOTE | 2017-06-16 14:00 | CON.CARD ---
Cardiology Consult (text) - Consultation Consultation Note: CC: hypertensive urgency/emergency 37 yo with h/o secondary HTN (hyperaldo) in [address] Luigi Dunham and hypertensive specialist Dr Vargas ([facility]) who p/w nausea vomiting and noted to have hypertensive urgency/emergency, troponin elevation and madison. States she frequently misses her anti-htn meds about 2 times/week (except for clonidine patch) secondary to nausea/vomiting. Recently began having n/v since mon without resolution. Tried to take her meds but threw them up. sbp's 190's-200's during this time. + h/a. + cp (occurs regularly when she misses her medications). + palps with sob. + worsening LE edema and reyes earlier this week --> took extra dose of lasix this week with improvement. states sbp typically runs in 160's and recently had labetolol and minoxidil uptitrated about 2 weeks ago. no orthopnea, pnd, dizziness, transient neurologic sx's. bleeding. no f/c/s, diarrhea, cough, congestion, visual disturbance, rash. pmhx/pshx: per hpi social hx: Former smoker fam hx: no family hx of premature cad. ros: per hpi Ambulatory Orders Amlodipine Besylate 10 mg PO DAILY 04/01/17 Labetalol HCl [Normodyne -] 600 mg PO BID 04/01/17 Spironolactone 50 mg PO DAILY 04/01/17 Clonidine Patch [Catapres Tts Patch -] 0.3 mg TD WEEKLY 04/02/17 Doxazosin Mesylate 16 mg PO DAILY 04/02/17 Minoxidil [Minoxidil -] 7.5 mg PO DAILY 04/02/17 Furosemide [Lasix] 20 mg PO DAILY 06/16/17 Current Medications Acetaminophen (Tylenol -) 650 mg PO Q6H PRN PRN Reason: PAIN LEVEL 6-10 Heparin Sodium (Porcine) (Heparin -) 5,000 unit SQ BID BRET Minoxidil (Lonitin -) 2.5 mg PO ONCE ONE Stop: 06/17/17 10:01 Minoxidil (Lonitin -) 5 mg PO ONCE ONE Stop: 06/17/17 11:49 Vital Signs - 24 hr 06/16/17 06/16/17 06/16/17 07:16 08:25 09:15 Temperature 98.0 F Pulse Rate 88 Pulse Rate [ 95 H 86 Right] Respiratory 16 16 16 Rate Blood Pressure 190/85 Blood Pressure 215/140 197/138 [Right Arm] O2 Sat by Pulse 99 96 98 Oximetry (%) 06/16/17 06/16/17 06/16/17 09:59 11:30 12:24 Temperature Pulse Rate Pulse Rate [ 86 92 H 89 Right] Respiratory 18 Rate Blood Pressure Blood Pressure 202/129 192/139 220/147 [Right Arm] O2 Sat by Pulse Oximetry (%) Intake & Output 06/14/17 06/15/17 06/16/17 06/17/17 07:59 07:59 07:59 07:59 Intake Total 700 Balance 700 Weight 160 lb nad, calm jvd flat, neck supple bibasilar rales, nl effort rrr nl s1, s2 2/6 sys murmur at lsb + bs soft nt nd, no hsm + dp/pt, no carotid bruit no le e/c/c aaox3 no jaundice, diaphoresis CBC, BMP 06/16/17 08:30 06/16/17 08:30 Laboratory Tests 04/02/17 06/16/17 06/16/17 16:27 08:30 08:46 Magnesium Creatine Kinase 228 H Creatine Kinase Index 8.7 H* CK-MB (CK-2) < 20.000 H Troponin I 0.26 H 0.55 H Serum , Qual Negative 06/16/17 06/16/17 16:40 16:40 Magnesium 2.0 Creatine Kinase Creatine Kinase Index CK-MB (CK-2) Troponin I 0.34 H Serum , Qual ekg: nsr, delayed r wave progression. non-specific t wave ab. prolonged qtc. no acute ischemic changes. tele: SR echo 06/2017: mild lve. 1+ conc lvh. mild dec lv sys fn. mild-mod lat wall HK. mod inferolateral wall HK. 1+ lae. 1+ ar, mod mr, nl aortic root size. small pericardial effusion echo 03/2017: mod LVH (concentric); nl LVSF. nl RV. nl LA. mild AI/MR/TR. normal aortic root. small effusion cxr 06/2017: small bilateral pleural effusions with associated atelectasis. cardiomegaly. head ct: no acute pathology. chest CT 03/2017: Mixed consolidative and groundglass opacity in RUL c/w pna. Small bibasilar layering pleural effusions. Ascending aorta 4.1 cm. PA dilation (3.6 cm). Liver findings noted. Assessment/Plan 37 yo with h/o secondary HTN (hyperaldo) in [address] uLigi Dunham and hypertensive specialist Dr Vargas ([facility]) who p/w nausea vomiting and noted to have hypertensive urgency/emergency, troponin elevation and madison. hypertensive urgency/emergency - cardene madhuri recently started. monitor for improvement, renal following. - con't clonidine patch. - home lasix, aldactone per renal. (+) intermediate Troponin elevation, - chronic intermiediate troponin elevation (also noted 03/2017). overall flat trend, likely demand in setting of hypertension. EKG without acute ischemic changes. Low suspicion for ACS. - new wall motion abnormalities on echo noted in comparison to 03/2017. Will likely need inpatient ischemic evaluation once hypertension controlled. Will add asa and statin. - prolonged qt in setting of signifcantly decreased potassium. --> repletion. mild asc aorta dilation on 03/[address] - no significant enlargement on echo. - cp currently improved, but if recurs --> low threshold for cta of chest. CKD vs MADISON component: - monitor for improvement once bp controlled. renal following. cct 35 min.
[2017-06-16] MEDS: NICARDIPINE 25 MG in DEXTROSE 5%-WATER - 240 ML IVPB SCH ×2 (14:15→20:56)
[2017-06-16] MEDS ORDERED: niCARdipine HCL 25 MG/10 ML AMPUL IVPB ONE ×2 (14:26→20:52)
[2017-06-16 17:10] LABS: ANION GAP 11 (8-16); BLOOD UREA NITROGEN 33 mg/dL (7-18); CALCIUM 8.6 mg/dL (8.5-10.1); CHLORIDE 101 mmol/L (98-107); CO2 26 mmol/L (21-32); CREATININE 4.8 mg/dL (0.55-1.02); GLUCOSE,RANDOM 103 mg/dL (74-106); PHOSPHOROUS 3.3 mg/dL (2.5-4.9); SODIUM 138 mmol/L (136-145)
[2017-06-16 17:12] LABS: POTASSIUM 2.4 mmol/L (3.5-5.1)
--- NOTE | 2017-06-16 18:04 | CONSULT ---
Consult Consult Specialty:: Nephrology Reason for Consultation:: MADISON - History of Present Illness Chief Complaint: nausea and vomiting History of Present Illness: Pt is a 37 year old female with pmhx of CKD, HTN, and Conn's who presents to the ER with vomiting and abdominal pain. She says that the vomiting began on Monday and has not stopped. She has not taken any of her meds nor has she eaten. She denies chest pain or palpitations. She was found to be in renal failure and I was called to evaluate her. She follows with an outside rehabilitation therapy technician. She denies nsaid use. She says that her appetite is improved and is actually asking for food. - History Source History Provided By: Patient - Past Medical History Cardio/Vascular: Yes: HTN Renal/: Yes: Renal Inusuff, Other (Conn syndrome) - Alcohol/Substance Use Hx Alcohol Use: No - Smoking History Smoking history: Never smoked Have you smoked in the past 12 months: Yes If you are a former smoker, when did you quit?: january Home Medications - Allergies Allergies/Adverse Reactions: Allergies Allergy/AdvReac Type Severity Reaction Status Date / Time No Known Allergies Allergy Verified 06/16/17 07:14 - Home Medications Home Medications: Ambulatory Orders Amlodipine Besylate 10 mg PO DAILY 04/01/17 Labetalol HCl [Normodyne -] 600 mg PO BID 04/01/17 Spironolactone 50 mg PO DAILY 04/01/17 Clonidine Patch [Catapres Tts Patch -] 0.3 mg TD WEEKLY 04/02/17 Doxazosin Mesylate 16 mg PO DAILY 04/02/17 Minoxidil [Minoxidil -] 7.5 mg PO DAILY 04/02/17 Furosemide [Lasix] 20 mg PO DAILY 06/16/17 Family Disease History - Family Disease History Family History: Denies Review of Systems - Review of Systems Constitutional: reports: Malaise Eyes: reports: No Symptoms HENT: reports: No Symptoms Neck: reports: No Symptoms Cardiovascular: reports: Edema. denies: Chest Pain, Shortness of Breath Respiratory: denies: SOB, SOB on Exertion Gastrointestinal: reports: Abdominal Pain, Vomiting Musculoskeletal: reports: No Symptoms Integumentary: reports: No Symptoms Neurological: reports: No Symptoms Endocrine: reports: No Symptoms Hematology/Lymphatic: reports: No Symptoms Psychiatric: reports: No Symptoms Physical Exam Vital Signs: Vital Signs Temperature 98.0 F 06/16/17 07:16 Pulse Rate 95 H 06/16/17 17:40 Respiratory Rate 20 06/16/17 16:46 Blood Pressure 171/109 06/16/17 17:40 O2 Sat by Pulse Oximetry (%) 100 06/16/17 16:46 Constitutional: Yes: Calm Eyes: Yes: Conjunctiva Clear HENT: Yes: Atraumatic Neck: Yes: Supple Cardiovascular: Yes: S1, S2 Respiratory: Yes: CTA Bilaterally Gastrointestinal: Yes: Tenderness Renal/: Yes: WNL Musculoskeletal: Yes: WNL Edema: Yes Edema: LLE: Trace, RLE: Trace Neurological: Yes: Oriented Psychiatric: Yes: Oriented Labs: CBC, BMP 06/16/17 08:30 06/16/17 16:40 Laboratory Tests 06/16/17 06/16/17 06/16/17 08:11 08:30 08:30 WBC 5.5 Hgb 9.0 L D Sodium 140 Potassium 2.6 L* Carbon Dioxide 27 Anion Gap 15 BUN 34 H Creatinine 5.1 H Magnesium Creatine Kinase 228 H Creatine Kinase Index 8.7 H* Troponin I Urine Protein 2+ H Urine Blood Negative 06/16/17 06/16/17 16:40 16:40 WBC Hgb Sodium 138 Potassium 2.4 L* Carbon Dioxide Anion Gap BUN 33 H Creatinine 4.8 H Magnesium 2.0 Creatine Kinase Creatine Kinase Index Troponin I 0.34 H Urine Protein Urine Blood Imaging - Results Cat Scan: Report Reviewed Ultrasound: Report Reviewed Problem List - Problems (1) CKD (chronic kidney disease) Code(s): N18.9 - CHRONIC KIDNEY DISEASE, UNSPECIFIED (2) Hyperaldosteronism Code(s): E26.9 - HYPERALDOSTERONISM, UNSPECIFIED (3) Hypokalemia Code(s): E87.6 - HYPOKALEMIA Assessment/Plan Current Medications Generic Name Dose Route Start Last Admin Trade Name Freq PRN Reason Stop Dose Admin Acetaminophen 650 mg 06/16/17 12:25 Tylenol - PO Q6H PRN PAIN LEVEL 6-10 Heparin Sodium (Porcine) 5,000 unit 06/16/17 22:00 Heparin - SQ BID BRET Nicardipine HCl 25 mg/ 250 mls @ 25 mls/hr 06/16/17 14:15 06/16/17 17:40 Dextrose IVPB 5 mg/hr TITR BRET 50 mls/hr Protocol Titration 2.5 MG/HR Potassium Chloride 10 meq in 100 mls @ 100 mls/hr 06/16/17 18:15 Potassium Chloride 10 Meq Premix Ivpb - IVPB 06/16/17 22:14 Q60M BRET Minoxidil 2.5 mg 06/17/17 10:00 Lonitin - PO 06/17/17 10:01 ONCE ONE Minoxidil 5 mg 06/17/17 11:48 Lonitin - PO 06/17/17 11:49 ONCE ONE Potassium Chloride 40 meq 06/16/17 18:03 K-Dur - PO 06/16/17 18:04 ONCE ONE Impression 1. Conn/hyperaldo 2. htn emergency 3. CKD 4. MADISON 5. HTN poorly controlled 6. non compliance 7. vomiting Plan - replace potassium - do not give more lasix - repeat potassium level after she completes the potassium supplements - creatinine is improved - admit to ICU - resume home meds - cont nicardipine - GI eval for ct findings - discussed with medical team - will follow Dr Sunshine
[2017-06-16] MEDS ORDERED: KCL 10 MEQ IVPB 10 MEQ/100 ML INFUS.BAG IVPB SCH (18:15)
--- NOTE | 2017-06-16 18:38 | PN ---
Teaching Attending Note Name of Resident: Maribel Sainz ATTENDING PHYSICIAN STATEMENT I saw and evaluated the patient. I reviewed the resident's note and discussed the case with the resident. I agree with the resident's findings and plan as documented. SUBJECTIVE: Patient is c/o having headache 10/24, patient gets headache everyday. Has been vomiting on a daily basis for the past 3 days and has not taken her BP meds since she was vomiting. OBJECTIVE: Vital Signs Temperature 98.0 F 06/16/17 07:16 Pulse Rate 95 H 06/16/17 17:40 Respiratory Rate 20 06/16/17 16:46 Blood Pressure 171/109 06/16/17 17:40 O2 Sat by Pulse Oximetry (%) 100 06/16/17 16:46 CBCD WBC 5.5 K/mm3 (4.0-10.0) 06/16/17 08:30 RBC 2.98 M/mm3 (3.60-5.2) L 06/16/17 08:30 Hgb 9.0 GM/dL (10.7-15.3) L D 06/16/17 08:30 Hct 26.2 % (32.4-45.2) L 06/16/17 08:30 MCV 88.0 fl (80-96) 06/16/17 08:30 MCHC 34.2 g/dl (32.0-36.0) 06/16/17 08:30 RDW 15.5 % (11.6-15.6) D 06/16/17 08:30 Plt Count 209 K/MM3 (134-434) D 06/16/17 08:30 MPV 7.9 fl (7.5-11.1) D 06/16/17 08:30 CMP Sodium 138 mmol/L (136-145) 06/16/17 16:40 Potassium 2.4 mmol/L (3.5-5.1) L* 06/16/17 16:40 Chloride 101 mmol/L (98-107) 06/16/17 16:40 Carbon Dioxide 26 mmol/L (21-32) 06/16/17 16:40 Anion Gap 11 (8-16) 06/16/17 16:40 BUN 33 mg/dL (7-18) H 06/16/17 16:40 Creatinine 4.8 mg/dL (0.55-1.02) H 06/16/17 16:40 Creat Clearance w eGFR 9.42 (>60) 06/16/17 08:30 Random Glucose 103 mg/dL (74-106) 06/16/17 16:40 Calcium 8.6 mg/dL (8.5-10.1) 06/16/17 16:40 Total Bilirubin 0.9 mg/dL (0.2-1.0) D 06/16/17 08:30 AST 22 U/L (15-37) 06/16/17 08:30 ALT 27 U/L (12-78) 06/16/17 08:30 Alkaline Phosphatase 67 U/L (45-117) 06/16/17 08:30 Total Protein 7.5 g/dl (6.4-8.2) 06/16/17 08:30 Albumin 3.8 g/dl (3.4-5.0) 06/16/17 08:30 CARDIAC ENZYMES Creatine Kinase 228 IU/L (26-192) H 06/16/17 08:30 Troponin I 0.34 ng/ml (0.00-0.05) H 06/16/17 16:40 Current Medications Generic Name Dose Route Start Last Admin Trade Name Freq PRN Reason Stop Dose Admin Acetaminophen 650 mg 06/16/17 12:25 Tylenol - PO Q6H PRN PAIN LEVEL 6-10 Clonidine HCl 0.3 mg 06/16/17 18:45 Catapres Tts Patch - TD WEEKLY [facility] Heparin Sodium (Porcine) 5,000 unit 06/16/17 22:00 Heparin - SQ BID BRET Nicardipine HCl 25 mg/ 250 mls @ 25 mls/hr 06/16/17 14:15 06/16/17 17:40 Dextrose IVPB 5 mg/hr TITR BRET 50 mls/hr Protocol Titration 2.5 MG/HR Potassium Chloride 10 meq/ 105 mls @ 105 mls/hr 06/16/17 19:00 Sodium Chloride IVPB 06/16/17 22:59 Q1H BRET Minoxidil 2.5 mg 06/17/17 10:00 Lonitin - PO 06/17/17 10:01 ONCE ONE Minoxidil 5 mg 06/17/17 11:48 Lonitin - PO 06/17/17 11:49 ONCE ONE Morphine Sulfate 2 mg 06/16/17 18:30 Morphine Injection - IVPUSH Q4H PRN PAIN LEVEL 6-10 Spironolactone 50 mg 06/16/17 18:45 Aldactone - PO DAILY [facility] Home Medications Medication Instructions Recorded Amlodipine Besylate 10 mg PO DAILY 04/01/17 Labetalol HCl [Normodyne -] 600 mg PO BID 04/01/17 Spironolactone 50 mg PO DAILY 04/01/17 Clonidine Patch [Catapres Tts 0.3 mg TD WEEKLY 04/02/17 Patch -] Doxazosin Mesylate 16 mg PO DAILY 04/02/17 Minoxidil [Minoxidil -] 7.5 mg PO DAILY 04/02/17 Furosemide [Lasix] 20 mg PO DAILY 06/16/17 PE: GENERAL: Awake, alert, and fully oriented, in no acute distress. HEAD: Normal with no signs of trauma. EYES: Pupils equal, round and reactive to light, extraocular movements intact, sclera anicteric, conjunctiva clear. EARS, NOSE, THROAT: oropharynx clear without exudates. Moist mucous membranes. NECK: Normal range of motion, supple without lymphadenopathy, no JVD, or masses. LUNGS: Breath sounds equal, clear to auscultation bilaterally. No wheezes, and no crackles. No accessory muscle use. HEART: Regular rate and rhythm, normal S1 and S2 positive, no murmur, rub or gallop. ABDOMEN: Soft, nontender, not distended, normoactive bowel sounds, no guarding, no rebound, no masses. MUSCULOSKELETAL: Normal range of motion at all joints. No bony deformities or tenderness. EXTREMITIES: No cyanosis. No peripheral edema. NEUROLOGICAL: Cranial nerves II-XII intact. Normal speech, no facial asymmetry , motor 5/5, sensation intact, gait not observed. PSYCHIATRIC: Cooperative. Good eye contact. Appropriate mood and affect. SKIN: Warm, dry, normal turgor, no rashes or lesions noted. ASSESSMENT AND PLAN: This is a 37 year old female with a significant PMH of uncontrolled HTN, hyperaldosteronism, CKD who presented to the hospital complaining of chest pain and headache that started 2 days ago. She is admitted for uncontrolled BP, elevated troponons and MADISON on CKD. # Hypertensive emergency: Patient has been vomiting for the past 3 days and has not been taking her meds. Non compliance will admit to ICU with Nicardipine drip at 5mg/hr , titrate as needed to keep SBp b/t 150-160 . # Acute Headache due to hypertensive emergency will start her morphine IV q4h prn headache,CT negative for acute pathology # Chest pain:r/o ACS, cardiac w/u ordered cardio consult appreciated , also morphine will help her cp #MADISON on CKD: last admission 4.1-4.5, today 5.1, US kidney ordered, nephro consult , urine electrolytes, protein/creat ordered # Hyperaldosteronism: presewnted with low potassium will give her 4 riders of potassium According to the pt she has adrenal mass and had workup done but her results were nonconclusive so she didn't have sergury done to remove the mass CT abdomen without contrast (only PO) ordered-the pt refused, hypokalemia: potassium is 2.4 now # Anemia: hgb of 9.0, iron studies ordered, FOBT ordered DVT PPX; SCDs, heparin SQ BID critical care time of 35 minutes.
[2017-06-16] MEDS ORDERED: MORPHINE SULFATE 10 MG/1 ML *VIAL ONE (18:39)
[2017-06-16] MEDS: MORPHINE SULFATE 10 MG/1 ML *VIAL IVPUSH PRN ×2 (18:45→22:37)
[2017-06-16] MEDS ORDERED: SPIRONOLACTONE 25 MG TABLET (FP) PO SCH (18:45)
[2017-06-16] MEDS: POTASSIUM CHLORIDE 10 MEQ in SODIUM CHLORIDE 100 ML IVPB SCH ×4 (19:51→23:25)
[2017-06-16 20:28] VITALS: BMI 22.4
[2017-06-16] MEDS: SPIRONOLACTONE 25 MG TABLET (FP) PO SCH (21:35)
[2017-06-16] MEDS: HEPARIN NA (PORCINE) 5,000 UNITS/ML 1ML VIAL SQ SCH (21:38)
[2017-06-16 21:55] LABS: ANION GAP 9 (8-16); BLOOD UREA NITROGEN 34 mg/dL (7-18); CALCIUM 8.3 mg/dL (8.5-10.1); CHLORIDE 102 mmol/L (98-107); CO2 27 mmol/L (21-32); CREATININE 4.8 mg/dL (0.55-1.02); GLUCOSE,RANDOM 146 mg/dL (74-106); SODIUM 138 mmol/L (136-145)
[2017-06-16 21:57] LABS: POTASSIUM 2.7 mmol/L (3.5-5.1)
--- NOTE | 2017-06-16 22:11 | CONSULT ---
Consult Consult Specialty:: PULM/CCM Referred by:: Dr. Anjelica Hannah Reason for Consultation:: Malignant HTN - History of Present Illness Chief Complaint: BOYER, N/V History of Present Illness: Ms. Streeter is a 37 y/o woman w/ a Long Hx/o significant HTN (on a 7 course daily anti-HTN regimen) thought to be 2/2 hyperaldosteronism (reported masses on her adrenal glands) [facility] by Dr[facility] 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 NCHCT shows no e/o acute intracranial pathology. - History Source History Provided By: Patient, Medical Record Limitations to Obtaining History: No Limitations - Past Medical History Cardio/Vascular: Yes: HTN Renal/: Yes: Renal Inusuff, Other (Conn syndrome) - Alcohol/Substance Use Hx Alcohol Use: No - Smoking History Smoking history: Never smoked Have you smoked in the past 12 months: Yes If you are a former smoker, when did you quit?: january - Social History History of Recent Travel: No Home Medications - Allergies Allergies/Adverse Reactions: Allergies Allergy/AdvReac Type Severity Reaction Status Date / Time No Known Allergies Allergy Verified 06/16/17 07:14 - Home Medications Home Medications: Ambulatory Orders Amlodipine Besylate 10 mg PO DAILY 04/01/17 Labetalol HCl [Normodyne -] 600 mg PO BID 04/01/17 Spironolactone 50 mg PO DAILY 04/01/17 Clonidine Patch [Catapres Tts Patch -] 0.3 mg TD WEEKLY 04/02/17 Doxazosin Mesylate 16 mg PO DAILY 04/02/17 Minoxidil [Minoxidil -] 7.5 mg PO DAILY 04/02/17 Furosemide [Lasix] 20 mg PO DAILY 06/16/17 Family Disease History - Family Disease History Family History: Denies Review of Systems - Review of Systems Constitutional: reports: Loss of Appetite Eyes: reports: No Symptoms Neck: reports: No Symptoms Cardiovascular: reports: Chest Pain Respiratory: reports: No Symptoms Gastrointestinal: reports: Nausea, Vomiting Genitourinary: reports: No Symptoms Breasts: reports: No Symptoms Reported Musculoskeletal: reports: No Symptoms Integumentary: reports: No Symptoms Neurological: reports: Headache Endocrine: reports: No Symptoms Hematology/Lymphatic: reports: No Symptoms Psychiatric: reports: No Symptoms Pain Intensity: 10 Physical Exam Vital Signs: Vital Signs Temperature 98.2 F 06/16/17 19:15 Pulse Rate 97 H 06/16/17 20:56 Respiratory Rate 21 06/16/17 20:28 Blood Pressure 147/101 06/16/17 20:56 O2 Sat by Pulse Oximetry (%) 96 06/16/17 20:28 Constitutional: Yes: Well Nourished, No Distress, Calm Eyes: Yes: WNL, Conjunctiva Clear, EOM Intact HENT: Yes: WNL, Atraumatic, Normocephalic Neck: Yes: WNL, Supple, Trachea Midline Cardiovascular: Yes: WNL, Regular Rate and Rhythm Respiratory: Yes: WNL, Regular, CTA Bilaterally Gastrointestinal: Yes: WNL, Normal Bowel Sounds, Soft ...Rectal Exam: Yes: Deferred Renal/: Yes: WNL Breast(s): Yes: WNL Musculoskeletal: Yes: WNL Extremities: Yes: WNL Edema: No Integumentary: Yes: WNL Neurological: Yes: WNL, Alert, Oriented ...Motor Strength: WNL Psychiatric: Yes: WNL, Alert, Oriented Labs: CBC, BMP 06/16/17 08:30 06/16/17 21:05 Troponin, BNP 06/16/17 06/16/17 06/16/17 08:30 16:40 21:05 Troponin I 0.55 H 0.34 H 0.31 H B-Natriuretic Peptide 55778.9 H Imaging - Results Chest X-ray: Image Reviewed (CXR 06/16: There is globular enlargement of the cardiac silhouette, similar to the prior exam. Pericardial effusion is not excluded. Superior mediastinal silhouette is stable in size. There is no evidence of pulmonary vascular congestion. There are small bilateral pleural effusions with blunting the costophrenic angles. There is subsegmental atelectasis in both lung bases, left more than right. There is no definable pneumothorax. No abnormal deviation of the trachea. Reported By: Panfilo Sahu DO) Cat Scan: Report Reviewed (NCHCT 3: No CT evidence of acute intracranial pathology. CTAP 3/2: There is partially imaged pericardial effusion, which is probably small to moderate in size. There is multichamber cardiomegaly. There is trace layering left pleural effusion with minimal atelectatic change in the underlying left lung base. The liver is enlarged, measuring 16 cm in the midclavicular line. There are multiple hypoattenuating lesions in the right hepatic lobe measuring up to 2.6 x 2.0 cm, overall similar in size to the 04/02 CT chest, most likely cysts. The gallbladder is not pathologically distended. The common bile duct is not dilated. The unenhanced pancreas is grossly unremarkable. Normal size spleen. There is no adrenal gland mass. Normal size kidneys. No renal calculi. No hydronephrosis. Normal caliber abdominal aorta with minimal calcific atherosclerosis. There is wall thickening within multiple jejunal loops in the left upper quadrant. Apparent gastric wall thickening along the distal body and antrum is noted, some of which may be attributed to underdistention. There is a small volume of perihepatic free fluid. There is also circumferentially prominent wall in the visualized portion of the descending colon and splenic fracture. No acute fracture in the visualized osseous structures. There is severe right L5-S1 posterior facet arthropathy. IMPRESSION: 1. No adrenal gland mass. 2. Nonspecific infectious versus inflammatory enterocolitis as described above. Gastric wall thickening as described above may be attributed to gastritis and/ or underdistention. Please correlate clinically. 3. Multichamber cardiomegaly. Small to moderate-sized pericardial effusion. Trace layering left pleural effusion. 4. Hepatomegaly.) Ultrasound: Report Reviewed (RENAL US 06/16: Compared to prior upper abdomen ultrasound dated since The right kidney is echogenic measuring 11.3 cm in sagittal length with a couple of small cysts the largest in its lower pole measuring 1.4 x 1.3 cm. The left kidney measures 9.8 cm in sagittal length and it is echogenic, as well. There is no gross hydronephrosis , renal stones or solid mass lesion, bilaterally. Included portion of the liver appears unremarkable) Problem List - Problems (1) Acute renal failure Code(s): N17.9 - ACUTE KIDNEY FAILURE, UNSPECIFIED (2) Hypertensive emergency Code(s): I16.1 - HYPERTENSIVE EMERGENCY (3) Adrenal adenoma Code(s): D35.00 - BENIGN NEOPLASM OF UNSPECIFIED ADRENAL GLAND (4) CKD (chronic kidney disease) Code(s): N18.9 - CHRONIC KIDNEY DISEASE, UNSPECIFIED (5) NSTEMI (non-ST elevated myocardial infarction) Code(s): I21.4 - NON-ST ELEVATION (NSTEMI) MYOCARDIAL INFARCTION (6) Nausea & vomiting Code(s): R11.2 - NAUSEA WITH VOMITING, UNSPECIFIED (7) Hypoaldosteronism Code(s): E27.40 - UNSPECIFIED ADRENOCORTICAL INSUFFICIENCY (8) Hypertensive cardiomyopathy Code(s): I11.9 - HYPERTENSIVE HEART DISEASE WITHOUT HEART FAILURE; I43 - CARDIOMYOPATHY IN DISEASES CLASSIFIED ELSEWHERE Assessment/Plan ASSESS: This is a 37 y/o woman w/ uncontrolled HTN, hyperaldosteronism, c/b CKD admitted now w/ uncontrolled BP, NSTEMI & A on C Renal Fail. PLAN: -Flu Swab -Supp FiO2 for an SpO2 > 92% -Nicardipine gtt (Goal SBP 150-160) -IV Lasix -Restart home med regimen: -Start catapres patch -PO Minoxidil -PO Aldactone -Zofran for N/V -Pain management for BOYER (Tylenol, MSO4) -Trend Troponins -TTE -CARDS -Strict I' & O's -Trend BUN/Cr -Replete e-lytes prn -U-Lytes -RENAL -Pt refuses SQH -SCDs -PPI (Renal Fail) -F/u w/ Dr. Vargas @ the [facility] -D/c --> Tele for cont management Thank you for this interesting consult [place]AR[place], CARMENZAP-BC PULM/CCM [facility] ICU [id number]
[2017-06-17] MEDS ORDERED: niCARdipine HCL 25 MG/10 ML AMPUL IVPB ONE ×5 (01:05→23:38)
[2017-06-17 01:26] LABS: ANION GAP 13 (8-16); BLOOD UREA NITROGEN 31 mg/dL (7-18); CALCIUM 8.5 mg/dL (8.5-10.1); CHLORIDE 103 mmol/L (98-107); CO2 25 mmol/L (21-32); CREATININE 4.7 mg/dL (0.55-1.02); GLUCOSE,RANDOM 112 mg/dL (74-106); SODIUM 141 mmol/L (136-145)
[2017-06-17 01:27] LABS: POTASSIUM 2.9 mmol/L (3.5-5.1)
[2017-06-17] MEDS: KCL 10 MEQ IVPB 10 MEQ/100 ML INFUS.BAG IVPB SCH ×6 (04:15→12:17)
[2017-06-17 06:40] LABS: BASO % 0.2 % (0-2.0); HEMATOCRIT 25.3 % (32.4-45.2); HEMOGLOBIN 8.8 GM/dL (10.7-15.3); LYMPH % 13.7 % (8-40); MCH 30.2 pg (25.7-33.7); MCHC 34.7 g/dl (32.0-36.0); MONO % 5.8 % (3.8-10.2); NEUT % 75.3 % (42.8-82.8); PLATELET COUNT 211 K/MM3 (134-434); RBC 2.91 M/mm3 (3.60-5.2); RDW 15.2 % (11.6-15.6); WHITE BLOOD COUNT 5.8 K/mm3 (4.0-10.0)
[2017-06-17 07:02] LABS: ALBUMIN 3.4 g/dl (3.4-5.0); ANION GAP 10 (8-16); BILIRUBIN,TOTAL 0.7 mg/dL (0.2-1.0); BLOOD UREA NITROGEN 30 mg/dL (7-18); CALCIUM 8.2 mg/dL (8.5-10.1); CHLORIDE 104 mmol/L (98-107); CHOLESTEROL 202 mg/dL (50-200); CO2 26 mmol/L (21-32); CREATININE 4.7 mg/dL (0.55-1.02); GLUCOSE,RANDOM 99 mg/dL (74-106); LDL CHOLESTEROL (ONLY SJRH) 122 mg/dL (5-100); SGOT/AST 16 U/L (15-37); SGPT/ALT 25 U/L (12-78); SODIUM 140 mmol/L (136-145); TOT PROT 6.3 g/dl (6.4-8.2); TRIGLYCERIDES 91 mg/dL (35-160)
[2017-06-17 07:03] LABS: ALK PHOS 60 U/L (45-117); HDL CHOLESTEROL 60 mg/dL (40-60)
[2017-06-17] MEDS: MORPHINE SULFATE 10 MG/1 ML *VIAL IVPUSH PRN ×3 (08:26→20:53)
--- NOTE | 2017-06-17 09:12 | PN ---
Physical Exam: SUBJECTIVE: Patient seen and examined Patient is feeling better, no further headache, no chest pain or shortness of breath. OBJECTIVE: Vital Signs Temperature 98.3 F 06/17/17 04:30 Pulse Rate 95 H 06/17/17 06:00 Respiratory Rate 18 06/17/17 06:00 Blood Pressure 153/105 06/17/17 06:00 O2 Sat by Pulse Oximetry (%) 96 06/16/17 20:28 GENERAL: The patient is awake, alert, and fully oriented, in no acute distress. HEAD: Normal with no signs of trauma. EYES: PERRL, extraocular movements intact, sclera anicteric, conjunctiva clear. ENT: Ears normal, oropharynx clear without exudates, moist mucous membranes. NECK: Trachea midline, full range of motion, supple. LUNGS: Breath sounds equal, clear to auscultation bilaterally, no wheezes, no crackles, no accessory muscle use. HEART: Regular rate and rhythm, S1, S2 without murmur, rub or gallop. ABDOMEN: Soft, nontender, nondistended, normoactive bowel sounds, no guarding, no rebound, no hepatosplenomegaly, no masses. EXTREMITIES: 2+ pulses, warm, well-perfused, no edema. NEUROLOGICAL: Cranial nerves II through XII grossly intact. Normal speech, gait not observed. PSYCH: Normal mood, normal affect. SKIN: Warm, dry, normal turgor, no rashes or lesions noted CBCD WBC 5.8 K/mm3 (4.0-10.0) 06/17/17 06:10 RBC 2.91 M/mm3 (3.60-5.2) L 06/17/17 06:10 Hgb 8.8 GM/dL (10.7-15.3) L 06/17/17 06:10 Hct 25.3 % (32.4-45.2) L 06/17/17 06:10 MCV 87.0 fl (80-96) 06/17/17 06:10 MCHC 34.7 g/dl (32.0-36.0) 06/17/17 06:10 RDW 15.2 % (11.6-15.6) 06/17/17 06:10 Plt Count 211 K/MM3 (134-434) 06/17/17 06:10 MPV 8.0 fl (7.5-11.1) 06/17/17 06:10 CMP Sodium 140 mmol/L (136-145) 06/17/17 06:10 Potassium 3.0 mmol/L (3.5-5.1) L 06/17/17 06:10 Chloride 104 mmol/L (98-107) 06/17/17 06:10 Carbon Dioxide 26 mmol/L (21-32) 06/17/17 06:10 Anion Gap 10 (8-16) 06/17/17 06:10 BUN 30 mg/dL (7-18) H 06/17/17 06:10 Creatinine 4.7 mg/dL (0.55-1.02) H 06/17/17 06:10 Creat Clearance w eGFR 10.35 (>60) 06/17/17 06:10 Random Glucose 99 mg/dL (74-106) 06/17/17 06:10 Calcium 8.2 mg/dL (8.5-10.1) L 06/17/17 06:10 Total Bilirubin 0.7 mg/dL (0.2-1.0) D 06/17/17 06:10 AST 16 U/L (15-37) 06/17/17 06:10 ALT 25 U/L (12-78) 06/17/17 06:10 Alkaline Phosphatase 60 U/L (45-117) 06/17/17 06:10 Total Protein 6.3 g/dl (6.4-8.2) L 06/17/17 06:10 Albumin 3.4 g/dl (3.4-5.0) 06/17/17 06:10 CARDIAC ENZYMES Creatine Kinase 228 IU/L (26-192) H 06/16/17 08:30 Troponin I 0.31 ng/ml (0.00-0.05) H 06/16/17 21:05 Active Medications Generic Name Dose Route Start Last Admin Trade Name Freq PRN Reason Stop Dose Admin Acetaminophen 650 mg 06/16/17 12:25 Tylenol - PO Q6H PRN PAIN LEVEL 6-10 Aspirin 81 mg 06/17/17 10:00 Ecotrin - PO DAILY BRET Atorvastatin Calcium 40 mg 06/17/17 22:00 Lipitor - PO HS BRET Clonidine HCl 0.3 mg 06/19/17 10:00 Catapres Tts Patch - TD Mo@1000 BRET Heparin Sodium (Porcine) 5,000 unit 06/16/17 22:00 06/16/17 21:38 Heparin - SQ Not Given BID [facility] Nicardipine HCl 25 mg/ 250 mls @ 25 mls/hr 06/16/17 14:15 06/16/17 23:09 Dextrose IVPB 7.5 mg/hr TITR BRET 75 mls/hr Protocol Titration 2.5 MG/HR Potassium Chloride 10 meq in 100 mls @ 100 mls/hr 06/17/17 06:15 Potassium Chloride 10 Meq Premix Ivpb - IVPB 06/17/17 09:14 Q60M [facility] Morphine Sulfate 2 mg 06/16/17 18:30 06/17/17 08:26 Morphine Injection - IVPUSH 2 mg Q4H PRN Administration PAIN LEVEL 6-10 Spironolactone 50 mg 06/16/17 18:45 06/16/17 21:35 Aldactone - PO 50 mg DAILY [facility] Administration Home Medications Medication Instructions Recorded Amlodipine Besylate 10 mg PO DAILY 04/01/17 Labetalol HCl [Normodyne -] 600 mg PO BID 04/01/17 Spironolactone 50 mg PO DAILY 04/01/17 Clonidine Patch [Catapres Tts 0.3 mg TD WEEKLY 04/02/17 Patch -] Doxazosin Mesylate 16 mg PO DAILY 04/02/17 Minoxidil [Minoxidil -] 7.5 mg PO DAILY 04/02/17 Furosemide [Lasix] 20 mg PO DAILY 06/16/17 ekg: nsr, delayed r wave progression. non-specific t wave ab. prolonged qtc. no acute ischemic changes. tele: SR echo 06/2017: mild lve. 1+ conc lvh. mild dec lv sys fn. mild-mod lat wall HK. mod inferolateral wall HK. 1+ lae. 1+ ar, mod mr, nl aortic root size. small pericardial effusion echo 03/2017: mod LVH (concentric); nl LVSF. nl RV. nl LA. mild AI/MR/TR. normal aortic root. small effusion cxr 06/2017: small bilateral pleural effusions with associated atelectasis. cardiomegaly. head ct: no acute pathology. chest CT 03/2017: Mixed consolidative and groundglass opacity in RUL c/w pna. Small bibasilar layering pleural effusions. Ascending aorta 4.1 cm. PA dilation (3.6 cm). Liver findings noted. ASSESSMENT/PLAN: This is a 37 year old female with a significant PMH of uncontrolled HTN, hyperaldosteronism, CKD who presented to the hospital complaining of chest pain and headache that started 2 days ago. She is admitted for uncontrolled BP, elevated troponons and MADISON on CKD. # Hypertensive emergency: Patient is better controlled now on Nicardioine drip , titrate as needed to keep SBp b/t 150-160 . # Elevated Troponin (also was noted on 03/2017) , demand Ischemia most likely due to Hypertensive Emergency. EKG No acute ischemic changes # Acute Headache due to hypertensive emergency improved post better controlling BP , CT of the head negative for acute pathology # Chest pain:r/o ACS, cardiac w/u ordered cardio consult appreciated , also morphine will help her cp #MADISON on CKD: last admission 4.1-4.5, today 5.1, US kidney ordered, nephro consult covering for Dr. Marquez, urine electrolytes, protein/creat ordered # Hyperaldosteronism: presented with low potassium s/p 4 riders of potassium, will increase he spirinolactone to 100mg daily as per fashion consultant selling suggestion. According to the pt she has adrenal mass and had workup done but her results were nonconclusive , no intervention was done to remove the mass CT abdomen without contrast (only PO) ordered-the pt refused. Hypokalemia potassium is 2.4 now # Anemia: hgb of 9.0, iron studies ordered, FOBT ordered # Prolonged QT ; replete potassium DVT PPx: SCDs, heparin SQ BID As per Dr. Mendenhall: new wall motion abnormalities on echo noted in comparison to 03/2017. will likely need inpatient ischemic evaluation once hypertension controlled. Continue aspirin and statin. Visit type - Emergency Visit Emergency Visit: Yes ED Registration Date: 06/16/17 Care time: The patient presented to the Emergency Department on the above date and was hospitalized for further evaluation of their emergent condition. - New Patient This patient is new to me today: No - Critical Care Critical Care patient: No - Discharge Referral Referred to [facility] Med P.C[facility] No
[2017-06-17] MEDS ORDERED: FUROSEMIDE 20 MG TABLET (FP) PO SCH (10:00)
[2017-06-17] MEDS ORDERED: MINOXIDIL 2.5 MG TABLET PO ONE ×2 (10:00→11:48)
[2017-06-17] MEDS: HEPARIN NA (PORCINE) 5,000 UNITS/ML 1ML VIAL SQ SCH ×3 (10:00→21:12)
--- NOTE | 2017-06-17 10:18 | PN ---
Progress Note, Physician Chief Complaint: HTN emergency History of Present Illness: no more naus/vomiting no cp no sob, orthopnea no palpitaitons - Current Medication List Current Medications: Active Medications Acetaminophen (Tylenol -) 650 mg PO Q6H PRN PRN Reason: PAIN LEVEL 6-10 Aspirin (Ecotrin -) 81 mg PO DAILY [facility] Atorvastatin Calcium (Lipitor -) 40 mg PO HS [facility] Clonidine HCl (Catapres Tts Patch -) 0.3 mg TD Mo@1000 [facility] Heparin Sodium (Porcine) (Heparin -) 5,000 unit SQ BID [facility] Last Admin: 06/16/17 21:38 Dose: Not Given Nicardipine HCl 25 mg/ (Dextrose) 250 mls @ 25 mls/hr IVPB TITR BRET; 2.5 MG/HR PRN Reason: Protocol Last Titration: 06/16/17 23:09 Dose: 7.5 mg/hr, 75 mls/hr Morphine Sulfate (Morphine Injection -) 2 mg IVPUSH Q4H PRN PRN Reason: PAIN LEVEL 6-10 Last Admin: 06/17/17 08:26 Dose: 2 mg Spironolactone (Aldactone -) 50 mg PO DAILY [facility] Last Admin: 06/16/17 21:35 Dose: 50 mg - Objective Vital Signs: Vital Signs Temperature 98.3 F 06/17/17 04:30 Pulse Rate 95 H 06/17/17 06:00 Respiratory Rate 18 06/17/17 06:00 Blood Pressure 153/105 06/17/17 06:00 O2 Sat by Pulse Oximetry (%) 96 06/16/17 20:28 Constitutional: Yes: Well Nourished, No Distress, Calm Cardiovascular: Yes: Regular Rate and Rhythm, JVD (8-10 cm), S1, S2. No: Gallop , Murmur Respiratory: Yes: Regular, CTA Bilaterally. No: Accessory Muscle Use, Rales, Wheezes Extremities: No: Cold Edema: No Neurological: Yes: Alert, Oriented Psychiatric: No: Agitated Labs: CBC, BMP 06/17/17 06:10 06/17/17 06:10 - ....Imaging EKG: Other (tele: NSR) Assessment/Plan ekg: nsr, delayed r wave progression. non-specific t wave ab. prolonged qtc. no acute ischemic changes. tele: SR echo 06/2017: mild lve. 1+ conc lvh. mild dec lv sys fn. mild-mod lat wall HK. mod inferolateral wall HK. 1+ lae. 1+ ar, mod mr, nl aortic root size. small pericardial effusion (images reviewed by dr taylor: no regionality to LV hypokinesis--there is clearly global mild-moderate hypokinesis, EF 40-45%. moderate conc LVH. moderate MR) echo 03/2017: mod LVH (concentric); nl LVSF. nl RV. nl LA. mild AI/MR/TR. normal aortic root. small effusion cxr 06/2017: small bilateral pleural effusions with associated atelectasis. cardiomegaly. head ct: no acute pathology. chest CT 03/2017: Ascending aorta 4.1 cm. PA dilation (3.6 cm). Assessment/Plan 37 yo with h/o secondary HTN (hyperaldo) in [address] Luigi Mckay and hypertensive specialist Dr John ([facility]) who p/w nausea vomiting and noted to have hypertensive urgency/emergency, troponin elevation and [place]. hypertensive emergency, known hyperaldosteronism - triggered by non-adherence to po meds due to naus and vomiting (not her prior high bp sx she says--has GI f/u at [place], with EGD scheduled - cardene drip started in ICU, BP responded well. - usual BP lowering protocol (avoid over-rapid lowering), based on mean BP - con't clonidine patch, transition back to home po regimen (including spirono 50 qd) - consider incr spironolactone dose if hypokalemia o r BP is refractory - pt advised to f/u with dr john (HTN specialist) after discharge and make plan (for ? additional prn clonidine patch) for next time she cannot tolerate po meds transiently if having GI upset - aggressive repletion of K acute syst/diast (mixed) CHF: - nl LVSF 04/02, with evidence of mild chf on CT chest at that time - very poor GFR limits diuretics dosing - currently no sx's at all, however small pleural and pericardial effusions on imaging, and suspected JVD present - will defer lasix as long as she remains without sob, until creatinine trend is felt stable per renal consultants (+) intermediate Troponin elevation, - flat, intermediate troponin elevation 03/2017 (0.2 range), likely due to LVH with uncontrolled BP. also ? chf at that time - initial trop here 0.5-->0.3. EKG without acute ischemic changes. - no anginal sx's (naus/vomiting are not new, seeing GI and has w/u scheduled - very likely troponins are related to acute HTN emergency-->increased LV myocardial wall tension (i.e. Type II NE). - doubt ACS clinically. - rec defer stress testing given risks of precipitating severe HTN emergency with exercise or dobutamine, and risks of breast irradiation in 37 yo female. - highly likely LV dysfunction is sec to acute HTN crisis. outpt f/u with cardio (dr mckay)--if LVEF remains down once BP is improved for 6-12 weeks, would rec ischemia evaluation at that time. - will hold asa and statin for now prolonged QT: - sec to K <3 - lytes repletion as doing - no VF on tele, cont to monitor mild asc aorta dilation on 03/[address] - no significant enlargement on echo. - cp currently improved, but if recurs --> low threshold for cta of chest. CKD vs M[place]ISON component: - baseline creat 4.5. initially 5.1 here, now back to near-baseline - renal following. est time in pt exam, review of data, and formulation of mgmt plan of potentially life-threatening problems = 35 min
[2017-06-17] MEDS ORDERED: PT OWN MED DRAWER 7, Y5N ONE ×2 (10:51→21:04)
[2017-06-17] MEDS: ASPIRIN COATED 81 MG TABLET.EC PO SCH (10:52)
--- NOTE | 2017-06-17 11:37 | EKG ---
Test Reason : Blood Pressure : / mmHG Vent. Rate : 092 BPM Atrial Rate : 092 BPM P-R Int : 174 ms QRS Dur : 100 ms QT Int : 406 ms P-R-T Axes : 051 -03 113 degrees QTc Int : 502 ms NORMAL SINUS RHYTHM PROLONGED QT ABNORMAL ECG Confirmed by MD KATYA, TONE ([id number]) on 06/17/2017 11:37:19 AM Referred By: Paz ODOM Confirmed By:TONE ALDANA MD
--- NOTE | 2017-06-17 11:52 | PN ---
Progress Note (short form) - Note Progress Note: PULMONARY/CCM Pt seen and examined in the ICU. Remains on cardene gtt. States headache and nausea resolved. Denies shortness of breath or chest pain. Last Vital Signs Temp Pulse Resp BP Pulse Ox 98.2 F 118 H 16 153/102 96 06/17/17 10:16 06/17/17 10:16 06/17/17 10:16 06/17/17 10:16 06/16/17 20:28 Intake & Output 06/14/17 06/15/17 06/16/17 06/17/17 23:59 23:59 23:59 23:59 Intake Total 1375 825 Balance 1375 825 Weight 75.024 kg 76.294 kg Gen: NAD at rest Heart: tachycardic, regular Lung: decreased breath sounds at the bases Abd: soft, nontender Ext: no edema CBC, BMP 06/17/17 06:10 06/17/17 06:10 Active Medications Acetaminophen (Tylenol -) 650 mg PO Q6H PRN PRN Reason: PAIN LEVEL 6-10 Aspirin (Ecotrin -) 81 mg PO DAILY [facility] Last Admin: 06/17/17 10:52 Dose: 81 mg Atorvastatin Calcium (Lipitor -) 40 mg PO HS [facility] Clonidine HCl (Catapres Tts Patch -) 0.3 mg TD Mo@1000 [facility] Heparin Sodium (Porcine) (Heparin -) 5,000 unit SQ BID [facility] Last Admin: 06/17/17 10:52 Dose: 5,000 unit Nicardipine HCl 25 mg/ (Dextrose) 250 mls @ 25 mls/hr IVPB TITR BRET; 2.5 MG/HR PRN Reason: Protocol Last Titration: 06/16/17 23:09 Dose: 7.5 mg/hr, 75 mls/hr Morphine Sulfate (Morphine Injection -) 2 mg IVPUSH Q4H PRN PRN Reason: PAIN LEVEL 6-10 Last Admin: 06/17/17 08:26 Dose: 2 mg Potassium Chloride (K-Dur -) 40 meq PO ONCE ONE Stop: 06/17/17 11:49 Potassium Chloride (K-Dur -) 40 meq PO ONCE ONE Stop: 06/17/17 15:01 Spironolactone (Aldactone -) 50 mg PO DAILY [facility] Last Admin: 06/16/17 21:35 Dose: 50 mg A/P Hypertensive Urgency Hyperalosteronism Acute on CKD +Troponins likely from above Hypokalemia - taper off cardene gtt - titrate oral BP meds - agree with aldactone - replete lytes - PO as tolerated - DVT prophylaxis - can transfer to telemetry once off cardene gtt
[2017-06-17] MEDS ORDERED: POTASSIUM CHLORIDE TABS 20 MEQ TABLET.ER (FP) PO ONE ×3 (12:00→20:45)
[2017-06-17] MEDS: SPIRONOLACTONE 25 MG TABLET (FP) PO SCH ×2 (12:16→21:12)
[2017-06-17] MEDS: NICARDIPINE 25 MG in DEXTROSE 5%-WATER - 240 ML IVPB SCH ×3 (12:18→20:53)
--- NOTE | 2017-06-17 13:14 | PN ---
Progress Note (short form) - Note Progress Note: covering dr blanco problems 1. Conn/hyperaldo 2. htn emergency 3. CKD 4. M[place] 5. HTN poorly controlled 6. non compliance 7. vomiting Active Medications Acetaminophen (Tylenol -) 650 mg PO Q6H PRN PRN Reason: PAIN LEVEL 6-10 Aspirin (Ecotrin -) 81 mg PO DAILY [facility] Last Admin: 06/17/17 10:52 Dose: 81 mg Atorvastatin Calcium (Lipitor -) 40 mg PO HS [facility] Clonidine HCl (Catapres Tts Patch -) 0.3 mg TD Mo@1000 [facility] Heparin Sodium (Porcine) (Heparin -) 5,000 unit SQ BID [facility] Last Admin: 06/17/17 10:52 Dose: 5,000 unit Nicardipine HCl 25 mg/ (Dextrose) 250 mls @ 25 mls/hr IVPB TITR BRET; 2.5 MG/HR PRN Reason: Protocol Last Admin: 06/17/17 12:18 Dose: 7.5 mg/hr, 75 mls/hr Morphine Sulfate (Morphine Injection -) 2 mg IVPUSH Q4H PRN PRN Reason: PAIN LEVEL 6-10 Last Admin: 06/17/17 08:26 Dose: 2 mg Potassium Chloride (K-Dur -) 40 meq PO ONCE ONE Stop: 06/17/17 15:01 Spironolactone (Aldactone -) 50 mg PO BID [facility] Last Vital Signs Temp Pulse Resp BP Pulse Ox 98.7 F 93 H 20 166/121 96 06/17/17 12:39 06/17/17 12:39 06/17/17 12:39 06/17/17 12:39 06/17/17 09:00 CBC, BMP 06/17/17 06:10 06/16/17 06/17/17 06/17/17 08:30 00:40 06:10 Hgb 9.0 L D 8.8 L Hct 26.2 L 25.3 L Sodium 141 Potassium 2.9 L* BUN 31 H Creatinine 4.7 H 06/17/17 06/17/17 06:10 12:46 Hgb Hct Sodium 140 140 Potassium 3.0 L 2.9 L* BUN 30 H 29 H Creatinine 4.7 H 4.5 H IMP- Hypertensive urgency Hypokalemia Hyperaldo Plan- continue to replace K f/u bmp later in the day after replacements
[2017-06-17 13:25] LABS: ALBUMIN 3.4 g/dl (3.4-5.0); ALK PHOS 59 U/L (45-117); ANION GAP 12 (8-16); BILIRUBIN,TOTAL 0.5 mg/dL (0.2-1.0); BLOOD UREA NITROGEN 29 mg/dL (7-18); CALCIUM 8.9 mg/dL (8.5-10.1); CHLORIDE 102 mmol/L (98-107); CO2 26 mmol/L (21-32); CREATININE 4.5 mg/dL (0.55-1.02); GLUCOSE,RANDOM 96 mg/dL (74-106); SGOT/AST 17 U/L (15-37); SGPT/ALT 26 U/L (12-78); SODIUM 140 mmol/L (136-145); TOT PROT 6.6 g/dl (6.4-8.2)
[2017-06-17 13:30] LABS: POTASSIUM 2.9 mmol/L (3.5-5.1)
[2017-06-17 13:48] LABS: MAGNESIUM 2.7 mg/dL (1.8-2.4)
[2017-06-17 14:43] LABS: RATIO URIN PROTEIN/URIN CREAT 1.2 MG/DL
[2017-06-17 20:01] LABS: ANION GAP 11 (8-16); BLOOD UREA NITROGEN 28 mg/dL (7-18); CALCIUM 8.5 mg/dL (8.5-10.1); CHLORIDE 103 mmol/L (98-107); CO2 24 mmol/L (21-32); CREATININE 4.5 mg/dL (0.55-1.02); GLUCOSE,RANDOM 102 mg/dL (74-106); MAGNESIUM 2.6 mg/dL (1.8-2.4); POTASSIUM 3.1 mmol/L (3.5-5.1); SODIUM 138 mmol/L (136-145)
[2017-06-17] MEDS: ATORVASTATIN CA 40 MG TABLET (FP) PO SCH (21:12)
[2017-06-17] MEDS ORDERED: MECLIZINE HCL 12.5 MG TABLET PO PRN (21:31)
[2017-06-18] MEDS ORDERED: POTASSIUM CHLORIDE TABS 20 MEQ TABLET.ER (FP) PO ONE
[2017-06-18] MEDS: NICARDIPINE 25 MG in DEXTROSE 5%-WATER - 240 ML IVPB SCH ×2 (02:26→16:29)
[2017-06-18 06:37] LABS: SERUM IRON SATURATION 13 % (15-55); TOTAL IRON BINDING CAPACITY 286 ug/dL (250-450); UIBC 248 ug/dL (131-425)
[2017-06-18] MEDS ORDERED: METOCLOPRAMIDE HCL INJECTION 10 MG/2 ML VIAL IVPUSH ONE (06:43)
[2017-06-18 06:44] LABS: BASO % 0.2 % (0-2.0); EOS % 6.2 % (0-4.5); HEMATOCRIT 25.8 % (32.4-45.2); HEMOGLOBIN 8.9 GM/dL (10.7-15.3); LYMPH % 14.3 % (8-40); MCH 30.2 pg (25.7-33.7); MCHC 34.6 g/dl (32.0-36.0); MEAN CELL VOLUME 87.3 fl (80-96); MONO % 5.8 % (3.8-10.2); NEUT % 73.5 % (42.8-82.8); PLATELET COUNT 232 K/MM3 (134-434); RBC 2.96 M/mm3 (3.60-5.2); RDW 15.1 % (11.6-15.6); WHITE BLOOD COUNT 6.3 K/mm3 (4.0-10.0)
[2017-06-18 07:07] LABS: CHLORIDE 100 mmol/L (98-107); POTASSIUM 3.7 mmol/L (3.5-5.1); SODIUM 136 mmol/L (136-145)
[2017-06-18 07:15] LABS: ALBUMIN 3.5 g/dl (3.4-5.0); ALK PHOS 59 U/L (45-117); ANION GAP 13 (8-16); BILIRUBIN,TOTAL 0.7 mg/dL (0.2-1.0); BLOOD UREA NITROGEN 24 mg/dL (7-18); CALCIUM 9.1 mg/dL (8.5-10.1); CO2 23 mmol/L (21-32); CREATININE 4.4 mg/dL (0.55-1.02); GLUCOSE,RANDOM 114 mg/dL (74-106); MAGNESIUM 2.8 mg/dL (1.8-2.4); PHOSPHOROUS 2.6 mg/dL (2.5-4.9); SGOT/AST 15 U/L (15-37); SGPT/ALT 22 U/L (12-78); TOT PROT 6.6 g/dl (6.4-8.2)
[2017-06-18 08:06] LABS: TRANSFERRIN 232 mg/dL (200-370)
--- NOTE | 2017-06-18 09:28 | PN ---
Progress Note, Physician Chief Complaint: HTN emergency History of Present Illness: denies sob, orthopnea. denies cp, back pain no palpitations - Current Medication List Current Medications: Active Medications Acetaminophen (Tylenol -) 650 mg PO Q6H PRN PRN Reason: PAIN LEVEL 6-10 Aspirin (Ecotrin -) 81 mg PO DAILY [facility] Last Admin: 06/17/17 10:52 Dose: 81 mg Atorvastatin Calcium (Lipitor -) 40 mg PO HS [facility] Last Admin: 06/17/17 21:12 Dose: 40 mg Clonidine HCl (Catapres Tts Patch -) 0.3 mg TD Mo@1000 [facility] Heparin Sodium (Porcine) (Heparin -) 5,000 unit SQ BID [facility] Last Admin: 06/17/17 21:12 Dose: Not Given Nicardipine HCl 25 mg/ (Dextrose) 250 mls @ 25 mls/hr IVPB TITR BRET; 2.5 MG/HR PRN Reason: Protocol Last Admin: 06/18/17 02:26 Dose: 12.5 mg/hr, 125 mls/hr Meclizine HCl (Antivert -) 12.5 mg PO Q6H PRN PRN Reason: NAUSEA Last Admin: 06/17/17 21:42 Dose: 12.5 mg Morphine Sulfate (Morphine Injection -) 2 mg IVPUSH Q4H PRN PRN Reason: PAIN LEVEL 6-10 Last Admin: 06/17/17 20:53 Dose: 2 mg Spironolactone (Aldactone -) 50 mg PO BID [facility] Last Admin: 06/17/17 21:12 Dose: 50 mg - Objective Vital Signs: Vital Signs Temperature 98.2 F 06/18/17 02:00 Pulse Rate 92 H 06/18/17 06:03 Respiratory Rate 18 06/18/17 08:12 Blood Pressure 142/106 06/18/17 06:03 O2 Sat by Pulse Oximetry (%) 96 06/18/17 08:12 Constitutional: Yes: Well Nourished, No Distress, Calm Cardiovascular: Yes: Regular Rate and Rhythm, JVD (10-12 cm), S1, S2. No: Gallop, Murmur Respiratory: Yes: Regular, CTA Bilaterally. No: Accessory Muscle Use, Rales, Wheezes Extremities: No: Cold Edema: No Neurological: Yes: Alert, Oriented Psychiatric: No: Agitated Labs: CBC, BMP 06/18/17 06:05 06/18/17 06:05 - ....Imaging EKG: Other (tele: NSR, artifact) Assessment/Plan ekg: nsr, delayed r wave progression. non-specific t wave ab. prolonged qtc. no acute ischemic changes. tele: SR echo 06/2017: mild lve. 1+ conc lvh. mild dec lv sys fn. mild-mod lat wall HK. mod inferolateral wall HK. 1+ lae. 1+ ar, mod mr, nl aortic root size. small pericardial effusion (images reviewed by dr taylor: no regionality to LV hypokinesis--there is clearly global mild-moderate hypokinesis, EF 40-45%. moderate conc LVH. moderate MR) echo 03/2017: mod LVH (concentric); nl LVSF. nl RV. nl LA. mild AI/MR/TR. normal aortic root. small effusion cxr 06/2017: small bilateral pleural effusions with associated atelectasis. cardiomegaly. head ct: no acute pathology. chest CT 03/2017: Ascending aorta 4.1 cm. PA dilation (3.6 cm). Assessment/Plan 37 yo with h/o secondary HTN (hyperaldo) in [address] Luigi Mckay and hypertensive specialist Dr John ([facility]) who p/w nausea vomiting and noted to have hypertensive urgency/emergency, troponin elevation and [place]. hypertensive emergency, known hyperaldosteronism - triggered by non-adherence to po meds due to naus and vomiting (not her prior high bp sx she says--has GI f/u at [place], with EGD scheduled - cardene drip started in ICU, BP responded well. - usual BP lowering protocol (avoid over-rapid lowering), based on mean BP - con't clonidine patch, transition back to home po regimen (including spirono 50 qd) - remains on nicardipine gtt, required KCL total 140meq yest for repletion - will incr spironolactone to 50 bid - rec resume precise home bp med regimen (amlodipine, labetalol, doxazosin, minoxidil per ER list?--needs reconcilitation) - has had inconclusive adrenal vein sampling with dr perez (HTN specialist), no plans for surgery - pt advised to f/u with dr john after discharge and make plan (for ? additional prn clonidine patch) for next time she cannot tolerate po meds transiently if having GI upset - aggressive repletion of K acute syst/diast (mixed) CHF: - nl LVSF 04/02, with evidence of mild chf on CT chest at that time - very poor GFR limits diuretics dosing - currently no sx's at all, however small pleural and pericardial effusions on imaging, and suspected JVD present - remains completely asymptomatic, hence lasix was deferred ([place] and severe hypokalemia) - 3: creat 4.4, back to her prior baseline. start lasix tomorrow if K is stable. (+) intermediate troponin elevation, atypical CP: - pt endorses chronic sx's of atypical CP when misses her HTN meds: ? sec to acute bp elevation, vs sec to retching/vomiting (this has been happening often for several weeks, as cause of missed meds--GI w/u ongoing as outpt) - flat, intermediate troponin elevation 03/2017 (0.2 range), likely due to LVH with uncontrolled BP. also ? chf at that time - initial trop here 0.5-->0.3. EKG without acute ischemic changes. - no anginal sx's (naus/vomiting are not new, seeing GI and has w/u scheduled - very likely troponins are related to acute HTN emergency-->increased LV myocardial wall tension (i.e. Type II MT). - doubt ACS clinically. - rec defer stress testing given risks of precipitating severe HTN emergency with exercise or dobutamine, and risks of breast irradiation in 37 yo female. - highly likely LV dysfunction is sec to acute HTN crisis. outpt f/u with cardio (dr mckay)--if LVEF remains down once BP is improved for 6-12 weeks, would rec ischemia evaluation at that time. - will hold asa and statin for now prolonged QT: - sec to K <3 - lytes repletion as doing - no VF on tele, cont to monitor - 06/18 rpt ECG with manual QTC improved (461 msec), i.e. WNL mild asc aorta dilation on 03/[address] - no significant enlargement on echo - no s/sx of acute aorta pathology here (see above re: atyp CP is non- cardiovascular sx) CKD vs [place] component: - baseline creat 4.5. initially 5.1 here, now back to near-baseline - renal following. est time in pt exam, review of data, and formulation of mgmt plan of potentially life-threatening problems = 35 min
[2017-06-18] MEDS ORDERED: LABETALOL HCL 200 MG TABLET (FP) PO SCH (10:30)
[2017-06-18] MEDS: ASPIRIN COATED 81 MG TABLET.EC PO SCH (10:30)
[2017-06-18] MEDS: SPIRONOLACTONE 25 MG TABLET (FP) PO SCH ×2 (10:30→21:24)
[2017-06-18] MEDS: HEPARIN NA (PORCINE) 5,000 UNITS/ML 1ML VIAL SQ SCH ×2 (10:31→21:20)
--- NOTE | 2017-06-18 10:49 | PN ---
Progress Note (short form) - Note Progress Note: PULMONARY/CCM Pt seen and examined in the ICU. Remains on cardene gtt. Nauseous this AM. Denies shortness of breath or chest pain. Last Vital Signs Temp Pulse Resp BP Pulse Ox 98.2 F 92 H 18 142/106 96 06/18/17 02:00 06/18/17 06:03 06/18/17 08:12 06/18/17 06:03 06/18/17 08:12 Intake & Output 06/15/17 06/16/17 06/17/17 06/18/17 23:59 23:59 23:59 23:59 Intake Total 1375 2450 875 Output Total 301 Balance 1375 2149 875 Weight 75.024 kg 76.294 kg 77.519 kg Gen: NAD at rest Heart: RRR Lung: decreased breath sounds at the bases Abd: soft, nontender Ext: no edema CBC, BMP 06/18/17 06:05 06/18/17 06:05 Active Medications Acetaminophen (Tylenol -) 650 mg PO Q6H PRN PRN Reason: PAIN LEVEL 6-10 Aspirin (Ecotrin -) 81 mg PO DAILY [facility] Last Admin: 06/18/17 10:30 Dose: 81 mg Atorvastatin Calcium (Lipitor -) 40 mg PO HS [facility] Last Admin: 06/17/17 21:12 Dose: 40 mg Clonidine HCl (Catapres Tts Patch -) 0.3 mg TD Mo@1000 [facility] Doxazosin Mesylate (Cardura -) 8 mg PO BID [facility] Heparin Sodium (Porcine) (Heparin -) 5,000 unit SQ BID [facility] Last Admin: 06/18/17 10:31 Dose: Not Given Nicardipine HCl 25 mg/ (Dextrose) 250 mls @ 25 mls/hr IVPB TITR BRET; 2.5 MG/HR PRN Reason: Protocol Last Admin: 06/18/17 02:26 Dose: 12.5 mg/hr, 125 mls/hr Labetalol HCl (Normodyne -) 600 mg PO BID [facility] Meclizine HCl (Antivert -) 12.5 mg PO Q6H PRN PRN Reason: NAUSEA Last Admin: 06/17/17 21:42 Dose: 12.5 mg Minoxidil (Lonitin -) 7.5 mg PO DAILY [facility] Morphine Sulfate (Morphine Injection -) 2 mg IVPUSH Q4H PRN PRN Reason: PAIN LEVEL 6-10 Last Admin: 06/17/17 20:53 Dose: 2 mg Spironolactone (Aldactone -) 50 mg PO BID [facility] Last Admin: 06/18/17 10:30 Dose: 50 mg A/P Hypertensive Urgency Hyperalosteronism Acute on CKD +Troponins likely from above Hypokalemia - taper off cardene gtt - titrate oral BP meds, resume home regimen - agree with aldactone - replete lytes - PO as tolerated - DVT prophylaxis - can transfer to telemetry once off cardene gtt
[2017-06-18] MEDS ORDERED: PT OWN MED DRAWER 7, Y5N ONE ×2 (11:09→21:22)
[2017-06-18] MEDS: MORPHINE SULFATE 10 MG/1 ML *VIAL IVPUSH PRN ×2 (12:07→16:39)
--- NOTE | 2017-06-18 14:15 | EKG ---
Test Reason : Blood Pressure : / mmHG Vent. Rate : 070 BPM Atrial Rate : 070 BPM P-R Int : 178 ms QRS Dur : 094 ms QT Int : 514 ms P-R-T Axes : 054 002 113 degrees QTc Int : 555 ms NORMAL SINUS RHYTHM PROLONGED QT ABNORMAL ECG Confirmed by MD KATYA, TONE ([id number]) on 06/18/2017 2:14:50 PM Referred By: Paz ODOM Confirmed By:TONE ALDANA MD
--- NOTE | 2017-06-18 14:19 | EKG ---
Test Reason : Blood Pressure : / mmHG Vent. Rate : 099 BPM Atrial Rate : 099 BPM P-R Int : 196 ms QRS Dur : 090 ms QT Int : 380 ms P-R-T Axes : 270 028 159 degrees QTc Int : 487 ms UNUSUAL P AXIS, POSSIBLE ECTOPIC ATRIAL RHYTHM PROLONGED QT ABNORMAL ECG Confirmed by MD KATYA, TONE ([id number]) on 06/18/2017 2:19:00 PM Referred By: Paz ODOM Confirmed By:TONE ALDANA MD
--- NOTE | 2017-06-18 14:25 | EKG ---
Test Reason : Blood Pressure : / mmHG Vent. Rate : 093 BPM Atrial Rate : 093 BPM P-R Int : 172 ms QRS Dur : 098 ms QT Int : 394 ms P-R-T Axes : 061 009 082 degrees QTc Int : 489 ms SINUS RHYTHM WITH OCCASIONAL PREMATURE VENTRICULAR COMPLEXES POSSIBLE LEFT ATRIAL ENLARGEMENT PROLONGED QT ABNORMAL ECG Confirmed by MD KATYA, TONE ([id number]) on 06/18/2017 2:25:10 PM Referred By: Paz ODOM Confirmed By:TONE ALDANA MD
[2017-06-18] MEDS: DOXAZOSIN MESYLATE 8 MG TABLET PO SCH ×2 (16:24→21:24)
[2017-06-18] MEDS: MINOXIDIL 2.5 MG TABLET PO SCH (16:28)
--- NOTE | 2017-06-18 16:51 | PN ---
Progress Note (short form) - Note Progress Note: covering dr blanco problems 1. Conn/hyperaldo 2. htn emergency 3. CKD 4. [place] 5. HTN poorly controlled 6. non compliance 7. vomiting Current Medications Acetaminophen (Tylenol -) 650 mg PO Q6H PRN PRN Reason: PAIN LEVEL 6-10 Aspirin (Ecotrin -) 81 mg PO DAILY [facility] Last Admin: 06/18/17 10:30 Dose: 81 mg Atorvastatin Calcium (Lipitor -) 40 mg PO HS [facility] Last Admin: 06/17/17 21:12 Dose: 40 mg Clonidine HCl (Catapres Tts Patch -) 0.3 mg TD Mo@1000 [facility] Doxazosin Mesylate (Cardura -) 8 mg PO BID [facility] Last Admin: 06/18/17 16:24 Dose: 8 mg Heparin Sodium (Porcine) (Heparin -) 5,000 unit SQ BID [facility] Last Admin: 06/18/17 10:31 Dose: Not Given Nicardipine HCl 25 mg/ (Dextrose) 250 mls @ 25 mls/hr IVPB TITR BRET; 2.5 MG/HR PRN Reason: Protocol Last Admin: 06/18/17 16:29 Dose: Not Given Labetalol HCl (Normodyne -) 400 mg PO BID [facility] Meclizine HCl (Antivert -) 12.5 mg PO Q6H PRN PRN Reason: NAUSEA Last Admin: 06/17/17 21:42 Dose: 12.5 mg Minoxidil (Lonitin -) 7.5 mg PO DAILY [facility] Last Admin: 06/18/17 16:28 Dose: 7.5 mg Morphine Sulfate (Morphine Injection -) 2 mg IVPUSH Q4H PRN PRN Reason: PAIN LEVEL 6-10 Last Admin: 06/18/17 16:39 Dose: 2 mg Spironolactone (Aldactone -) 50 mg PO BID [facility] Last Admin: 06/18/17 10:30 Dose: 50 mg Last Vital Signs Temp Pulse Resp BP Pulse Ox 100.8 F H 75 22 139/99 96 06/18/17 15:25 06/18/17 16:29 06/18/17 15:25 06/18/17 16:29 06/18/17 08:12 CBC, BMP 06/18/17 06:05 06/18/17 06:05 IMP- Hypertensive urgency Hypokalemia- resolved Hyperaldo madison/ckd - agree with holding furosemide for now elev tni Plan- continue to replace K as needed f/u bmp daily
--- NOTE | 2017-06-18 17:09 | PN ---
<Maribel Sainz - Last Filed: 06/18/17 17:13> Physical Exam: SUBJECTIVE: Patient seen and examined. She is feeling better today, her headache improved. No overnight events. OBJECTIVE: Vital Signs Period Temp Pulse Resp BP Sys/Li Pulse Ox Last 24 Hr 98.2 F-100.8 F 84-114 16-22 132-168/96-118 96-96 GENERAL: The patient is awake, alert, and fully oriented, in no acute distress. HEAD: Normal with no signs of trauma. EYES: extraocular movements intact, sclera anicteric, conjunctiva clear. ENT: oropharynx clear without exudates, moist mucous membranes. NECK: Trachea midline, full range of motion, supple. LUNGS: Breath sounds equal, clear to auscultation bilaterally, no wheezes, no crackles, no accessory muscle use. HEART: Regular rate and rhythm, S1, S2 without murmur, rub or gallop. ABDOMEN: Soft, nontender, nondistended, normoactive bowel sounds, no guarding, no rebound, no hepatosplenomegaly, no masses. EXTREMITIES: 2+ pulses, warm, no edema. NEUROLOGICAL: Normal speech, no facial asymmetry, gait not observed. PSYCH: Normal mood, normal affect. SKIN: Warm, dry, normal turgor, no rashes. Laboratory Results - last 24 hr 06/17/17 06/17/17 06/18/17 06:10 19:20 06:05 WBC 6.3 RBC 2.96 L Hgb 8.9 L Hct 25.8 L MCV 87.3 MCH 30.2 MCHC 34.6 RDW 15.1 Plt Count 232 MPV 8.0 Neutrophils % 73.5 Lymphocytes % 14.3 Monocytes % 5.8 Eosinophils % 6.2 H Basophils % 0.2 Sodium 138 Potassium 3.1 L Chloride 103 Carbon Dioxide 24 Anion Gap 11 BUN 28 H Creatinine 4.5 H Creat Clearance w eGFR Random Glucose 102 Calcium 8.5 Phosphorus Magnesium 2.6 H Iron 38 TIBC 286 Iron Saturation 13 L Transferrin 232 Total Bilirubin AST ALT Alkaline Phosphatase Total Protein Albumin TSH Free T4 06/18/17 06/18/17 06:05 06:05 WBC RBC Hgb Hct MCV MCH MCHC RDW Plt Count MPV Neutrophils % Lymphocytes % Monocytes % Eosinophils % Basophils % Sodium 136 Potassium 3.7 Chloride 100 Carbon Dioxide 23 Anion Gap 13 BUN 24 H Creatinine 4.4 H Creat Clearance w eGFR 11.17 Random Glucose 114 H Calcium 9.1 Phosphorus 2.6 Magnesium 2.8 H Iron TIBC Iron Saturation Transferrin Total Bilirubin 0.7 D AST 15 ALT 22 Alkaline Phosphatase 59 Total Protein 6.6 Albumin 3.5 TSH 1.77 Free T4 1.18 Active Medications Generic Name Dose Route Start Last Admin Trade Name Freq PRN Reason Stop Dose Admin Acetaminophen 650 mg 06/16/17 12:25 Tylenol - PO Q6H PRN PAIN LEVEL 6-10 Aspirin 81 mg 06/17/17 10:00 06/18/17 10:30 Ecotrin - PO 81 mg DAILY [facility] Administration Atorvastatin Calcium 40 mg 06/17/17 22:00 06/17/17 21:12 Lipitor - PO 40 mg HS [facility] Administration Clonidine HCl 0.3 mg 06/19/17 10:00 Catapres Tts Patch - TD Mo@1000 [facility] Doxazosin Mesylate 8 mg 06/18/17 10:30 Cardura - PO BID [facility] Heparin Sodium (Porcine) 5,000 unit 06/16/17 22:00 06/18/17 10:31 Heparin - SQ Not Given BID [facility] Nicardipine HCl 25 mg/ 250 mls @ 25 mls/hr 06/16/17 14:15 06/18/17 02:26 Dextrose IVPB 12.5 mg/hr TITR [facility] 125 mls/hr Protocol Administration 2.5 MG/HR Labetalol HCl 600 mg 06/18/17 10:30 06/18/17 11:30 Normodyne - PO 600 mg BID [facility] Administration Meclizine HCl 12.5 mg 06/17/17 21:31 06/17/17 21:42 Antivert - PO 12.5 mg Q6H PRN Administration NAUSEA Minoxidil 7.5 mg 06/18/17 10:30 Lonitin - PO DAILY [facility] Morphine Sulfate 2 mg 06/16/17 18:30 06/18/17 12:07 Morphine Injection - IVPUSH 2 mg Q4H PRN Administration PAIN LEVEL 6-10 Spironolactone 50 mg 06/17/17 22:00 06/18/17 10:30 Aldactone - PO 50 mg BID [facility] Administration ASSESSMENT/PLAN: This is a 37 year old female with a significant PMH of uncontrolled HTN, hyperaldosteronism, CKD who presented to the hospital complaining of chest pain and headache that started 2 days ago. She is admitted for uncontrolled BP, elevated troponons and MADISON on CKD. Hypertensive emergency: -possibly related to medication non compliance, worsened kidney function -still on Cardene drip, goal of BP systolic 140-150, when off the drip we will start amlodypine 10 mg -cont Laisx tomorrow -continue Spironolactone 50mg daily -cardiac monitoring -f/u cardiology recommendations-home BP medications were confirmed with the pt on admission Chest pain: -elevated troponin on admission, normalized -EKG reviewed, no milan/std, no acute changes -cardiac monitoring -new wall motion abnormalities on echo noted in comparison to 03/2017. Will likely need inpatient ischemic evaluation once hypertension controlled -cont. asa and statin -Cardiology consulted -pleural effusions noted in CXR -Pulmonary f/u Headache: -possibly related to BP -resolving -CT negative for acute pathology -Tylenol 650 mg Q6H and Morphine 2 mg Q4H PRN MADISON on CKD: -improving -US kidney: no acute pathology, consistent with chronic changes -urine electrolytes ordered, FeNa 2.3 % suggest intrinsic renal failure -Nephrology-Dr Sunshine consulted, will f/u recommendations Hyperaldosteronism: -CT abdomen without contrast (only PO) done that didn't reveal any adrenal mass -urine adrenal nausea and vomiting: -she had nausea this morning Hypokalemia: -repleated, 3.7 today -known to have low K Anemia: -Hgb 9.0 -known to have anemia, no melena, hematemesis reported -TIBC, ferritin, transferin nl, iron saturtion low-13 -FOBT ordered, not collected DVT PPX; -SCDs -heparin SQ BID F/E/N: no/low K/low sodium Dispo: ICU Problem List - Problems (1) Acute renal failure Code(s): N17.9 - ACUTE KIDNEY FAILURE, UNSPECIFIED (2) Adrenal adenoma Code(s): D35.00 - BENIGN NEOPLASM OF UNSPECIFIED ADRENAL GLAND (3) CKD (chronic kidney disease) Code(s): N18.9 - CHRONIC KIDNEY DISEASE, UNSPECIFIED (4) Headache Code(s): R51 - HEADACHE (5) Hyperaldosteronism Code(s): E26.9 - HYPERALDOSTERONISM, UNSPECIFIED (6) Hypertensive emergency Code(s): I16.1 - HYPERTENSIVE EMERGENCY (7) Hypokalemia Code(s): E87.6 - HYPOKALEMIA (8) Nausea & vomiting Code(s): R11.2 - NAUSEA WITH VOMITING, UNSPECIFIED (9) Anemia Code(s): D64.9 - ANEMIA, UNSPECIFIED Visit type - Emergency Visit Emergency Visit: Yes ED Registration Date: 06/16/17 Care time: The patient presented to the Emergency Department on the above date and was hospitalized for further evaluation of their emergent condition. - New Patient This patient is new to me today: No - Critical Care Critical Care patient: Yes Total Critical Care Time (in minutes): 35 Critical Care Statement: The care of this patient involved high complexity decision making to prevent further life threatening deterioration of the patient 's condition and/or to evaluate & treat vital organ system(s) failure or risk of failure. <Soledad Barillas - Last Filed: 06/18/17 18:31> Physical Exam: Patient seen and examined, Patient's BP is better controlled now. Potassium is better controlled, increased spironolactone to 50mg po bid. Continue Cardine drip. Patient has no longer headache, improved post Controlling the BP. OBJECTIVE: Vital Signs Temperature 100.8 F H 06/18/17 15:25 Pulse Rate 75 06/18/17 16:29 Respiratory Rate 22 06/18/17 15:25 Blood Pressure 139/99 06/18/17 16:29 O2 Sat by Pulse Oximetry (%) 96 06/18/17 08:12 CBCD WBC 6.3 K/mm3 (4.0-10.0) 06/18/17 06:05 RBC 2.96 M/mm3 (3.60-5.2) L 06/18/17 06:05 Hgb 8.9 GM/dL (10.7-15.3) L 06/18/17 06:05 Hct 25.8 % (32.4-45.2) L 06/18/17 06:05 MCV 87.3 fl (80-96) 06/18/17 06:05 MCHC 34.6 g/dl (32.0-36.0) 06/18/17 06:05 RDW 15.1 % (11.6-15.6) 06/18/17 06:05 Plt Count 232 K/MM3 (134-434) 06/18/17 06:05 MPV 8.0 fl (7.5-11.1) 06/18/17 06:05 CMP Sodium 136 mmol/L (136-145) 06/18/17 06:05 Potassium 3.7 mmol/L (3.5-5.1) 06/18/17 06:05 Chloride 100 mmol/L (98-107) 06/18/17 06:05 Carbon Dioxide 23 mmol/L (21-32) 06/18/17 06:05 Anion Gap 13 (8-16) 06/18/17 06:05 BUN 24 mg/dL (7-18) H 06/18/17 06:05 Creatinine 4.4 mg/dL (0.55-1.02) H 06/18/17 06:05 Creat Clearance w eGFR 11.17 (>60) 06/18/17 06:05 Random Glucose 114 mg/dL (74-106) H 06/18/17 06:05 Calcium 9.1 mg/dL (8.5-10.1) 06/18/17 06:05 Total Bilirubin 0.7 mg/dL (0.2-1.0) D 06/18/17 06:05 AST 15 U/L (15-37) 06/18/17 06:05 ALT 22 U/L (12-78) 06/18/17 06:05 Alkaline Phosphatase 59 U/L (45-117) 06/18/17 06:05 Total Protein 6.6 g/dl (6.4-8.2) 06/18/17 06:05 Albumin 3.5 g/dl (3.4-5.0) 06/18/17 06:05 CARDIAC ENZYMES Creatine Kinase 228 IU/L (26-192) H 06/16/17 08:30 Troponin I 0.31 ng/ml (0.00-0.05) H 06/16/17 21:05 Current Medications Generic Name Dose Route Start Last Admin Trade Name Freq PRN Reason Stop Dose Admin Acetaminophen 650 mg 06/16/17 12:25 Tylenol - PO Q6H PRN PAIN LEVEL 6-10 Aspirin 81 mg 06/17/17 10:00 06/18/17 10:30 Ecotrin - PO 81 mg DAILY [facility] Administration Atorvastatin Calcium 40 mg 06/17/17 22:00 06/17/17 21:12 Lipitor - PO 40 mg HS [facility] Administration Clonidine HCl 0.3 mg 06/19/17 10:00 Catapres Tts Patch - TD Mo@1000 [facility] Doxazosin Mesylate 8 mg 06/18/17 10:30 06/18/17 16:24 Cardura - PO 8 mg BID [facility] Administration Heparin Sodium (Porcine) 5,000 unit 06/16/17 22:00 06/18/17 10:31 Heparin - SQ Not Given BID [facility] Nicardipine HCl 25 mg/ 250 mls @ 25 mls/hr 06/16/17 14:15 06/18/17 16:29 Dextrose IVPB Not Given TITR [facility] Protocol 2.5 MG/HR Labetalol HCl 400 mg 06/18/17 22:00 Normodyne - PO BID [facility] Meclizine HCl 12.5 mg 06/17/17 21:31 06/17/17 21:42 Antivert - PO 12.5 mg Q6H PRN Administration NAUSEA Minoxidil 7.5 mg 06/18/17 10:30 06/18/17 16:28 Lonitin - PO 7.5 mg DAILY [facility] Administration Morphine Sulfate 2 mg 06/16/17 18:30 06/18/17 16:39 Morphine Injection - IVPUSH 2 mg Q4H PRN Administration PAIN LEVEL 6-10 Spironolactone 50 mg 06/17/17 22:00 06/18/17 10:30 Aldactone - PO 50 mg BID [facility] Administration Home Medications Medication Instructions Recorded Amlodipine Besylate 10 mg PO DAILY 04/01/17 Labetalol HCl [Normodyne -] 600 mg PO BID 04/01/17 Spironolactone 50 mg PO DAILY 04/01/17 Clonidine Patch [Catapres Tts 0.3 mg TD WEEKLY 04/02/17 Patch -] Doxazosin Mesylate 16 mg PO DAILY 04/02/17 Minoxidil [Minoxidil -] 7.5 mg PO DAILY 04/02/17 Furosemide [Lasix] 20 mg PO DAILY 06/16/17 L
[2017-06-18] MEDS: POTASSIUM CHLORIDE TABS 20 MEQ TABLET.ER (FP) PO ONE ×2 (20:45→21:20)
[2017-06-18] MEDS: ATORVASTATIN CA 40 MG TABLET (FP) PO SCH ×2 (21:24→22:02)
[2017-06-18] MEDS: LABETALOL HCL 200 MG TABLET (FP) PO SCH (21:25)
[2017-06-19 05:55] LABS: BASO % 0.2 % (0-2.0); EOS % 4.4 % (0-4.5); HEMATOCRIT 22.7 % (32.4-45.2); HEMOGLOBIN 7.7 GM/dL (10.7-15.3); LYMPH % 23.1 % (8-40); MCH 29.8 pg (25.7-33.7); MCHC 33.8 g/dl (32.0-36.0); MEAN CELL VOLUME 88.1 fl (80-96); MEAN PLT VOLUME 7.9 fl (7.5-11.1); MONO % 5.2 % (3.8-10.2); NEUT % 67.1 % (42.8-82.8); PLATELET COUNT 182 K/MM3 (134-434); RBC 2.57 M/mm3 (3.60-5.2); RDW 15.4 % (11.6-15.6)
[2017-06-19 06:33] LABS: ALBUMIN 3.1 g/dl (3.4-5.0); ANION GAP 9 (8-16); BILIRUBIN,TOTAL 0.5 mg/dL (0.2-1.0); BLOOD UREA NITROGEN 29 mg/dL (7-18); CALCIUM 8.3 mg/dL (8.5-10.1); CHLORIDE 103 mmol/L (98-107); CO2 25 mmol/L (21-32); CREATININE 4.9 mg/dL (0.55-1.02); GLUCOSE,RANDOM 84 mg/dL (74-106); MAGNESIUM 2.4 mg/dL (1.8-2.4); PHOSPHOROUS 4.3 mg/dL (2.5-4.9); POTASSIUM 3.6 mmol/L (3.5-5.1); SGOT/AST 10 U/L (15-37); SGPT/ALT 17 U/L (12-78); SODIUM 137 mmol/L (136-145); TOT PROT 5.7 g/dl (6.4-8.2)
[2017-06-19 06:34] LABS: ALK PHOS 52 U/L (45-117)
--- NOTE | 2017-06-19 08:53 | PN ---
Physical Exam: SUBJECTIVE: Patient seen and examined OBJECTIVE: Vital Signs Period Temp Pulse Resp BP Sys/Li Pulse Ox Last 24 Hr 98.2 F-100.8 F 73-114 16-22 128-153/87-108 96 GENERAL: The patient is awake, alert, and fully oriented, in no acute distress. HEAD: Normal with no signs of trauma. EYES: PERRL, extraocular movements intact, sclera anicteric, conjunctiva clear. No ptosis. ENT: Ears normal, nares patent, oropharynx clear without exudates, moist mucous membranes. NECK: Trachea midline, full range of motion, supple. LUNGS: Breath sounds equal, clear to auscultation bilaterally, no wheezes, no crackles, no accessory muscle use. HEART: Regular rate and rhythm, S1, S2 without murmur, rub or gallop. ABDOMEN: Soft, nontender, nondistended, normoactive bowel sounds, no guarding, no rebound, no hepatosplenomegaly, no masses. EXTREMITIES: 2+ pulses, warm, well-perfused, no edema. NEUROLOGICAL: Cranial nerves II through XII grossly intact. Normal speech, gait not observed. PSYCH: Normal mood, normal affect. SKIN: Warm, dry, normal turgor, no rashes or lesions noted Laboratory Results - last 24 hr 06/19/17 06/19/17 05:25 05:25 WBC 5.0 RBC 2.57 L Hgb 7.7 L D Hct 22.7 L MCV 88.1 MCH 29.8 MCHC 33.8 RDW 15.4 Plt Count 182 D MPV 7.9 Neutrophils % 67.1 Lymphocytes % 23.1 D Monocytes % 5.2 Eosinophils % 4.4 Basophils % 0.2 Sodium 137 Potassium 3.6 Chloride 103 Carbon Dioxide 25 Anion Gap 9 BUN 29 H Creatinine 4.9 H Creat Clearance w eGFR 9.86 Random Glucose 84 Calcium 8.3 L Phosphorus 4.3 Magnesium 2.4 Total Bilirubin 0.5 D AST 10 L ALT 17 Alkaline Phosphatase 52 Total Protein 5.7 L Albumin 3.1 L Active Medications Generic Name Dose Route Start Last Admin Trade Name Freq PRN Reason Stop Dose Admin Acetaminophen 650 mg 06/16/17 12:25 Tylenol - PO Q6H PRN PAIN LEVEL 6-10 Amlodipine Besylate 10 mg 06/19/17 10:00 Norvasc - PO DAILY [facility] Aspirin 81 mg 06/17/17 10:00 06/18/17 10:30 Ecotrin - PO 81 mg DAILY [facility] Administration Atorvastatin Calcium 40 mg 06/17/17 22:00 06/18/17 22:02 Lipitor - PO Not Given HS [facility] Clonidine HCl 0.3 mg 06/19/17 10:00 Catapres Tts Patch - TD Mo@1000 [facility] Doxazosin Mesylate 8 mg 06/19/17 10:00 Cardura - PO BID [facility] Heparin Sodium (Porcine) 5,000 unit 06/16/17 22:00 06/18/17 21:20 Heparin - SQ Not Given BID [facility] Labetalol HCl 400 mg 06/18/17 22:00 06/18/17 21:25 Normodyne - PO 400 mg BID [facility] Administration Meclizine HCl 12.5 mg 06/17/17 21:31 06/17/17 21:42 Antivert - PO 12.5 mg Q6H PRN Administration NAUSEA Minoxidil 7.5 mg 06/18/17 10:30 06/18/17 16:28 Lonitin - PO 7.5 mg DAILY [facility] Administration Morphine Sulfate 2 mg 06/16/17 18:30 06/18/17 16:39 Morphine Injection - IVPUSH 2 mg Q4H PRN Administration PAIN LEVEL 6-10 Spironolactone 50 mg 06/17/17 22:00 06/18/17 21:24 Aldactone - PO 50 mg BID [facility] Administration ASSESSMENT/PLAN:
--- NOTE | 2017-06-19 08:57 | PN ---
Progress Note, Physician Chief Complaint: htn emergency History of Present Illness: pt reported that her doses of home bp meds were recently increased several weeks ago. ? if nausea/vomiting began before or after those increases in doses. yest resumed home bp med regimen. was first given labetalol (600mg) by itself-- soon after she was vomited and retching. so dose changed to 400 bid. remainder of meds given. pt states she had hospitalization (at [facility]) for vomiting last year at some point, no meds stopped then and nausea improved on its own--mildly comes and goes since , given anti-emetic med regimen by doctor. few weeks ago dose of several meds increased, including labetalol. severe naus/vomiting middle of last week again. takes all her meds at the same time and then feels nauseated within short time after. denies sob, orthopnea, cp, palpitations - Current Medication List Current Medications: Active Medications Acetaminophen (Tylenol -) 650 mg PO Q6H PRN PRN Reason: PAIN LEVEL 6-10 Amlodipine Besylate (Norvasc -) 10 mg PO DAILY [facility] Aspirin (Ecotrin -) 81 mg PO DAILY [facility] Last Admin: 06/18/17 10:30 Dose: 81 mg Atorvastatin Calcium (Lipitor -) 40 mg PO HS [facility] Last Admin: 06/18/17 22:02 Dose: Not Given Clonidine HCl (Catapres Tts Patch -) 0.3 mg TD Mo@1000 [facility] Doxazosin Mesylate (Cardura -) 8 mg PO BID [facility] Heparin Sodium (Porcine) (Heparin -) 5,000 unit SQ BID [facility] Last Admin: 06/18/17 21:20 Dose: Not Given Labetalol HCl (Normodyne -) 400 mg PO BID [facility] Last Admin: 06/18/17 21:25 Dose: 400 mg Meclizine HCl (Antivert -) 12.5 mg PO Q6H PRN PRN Reason: NAUSEA Last Admin: 06/17/17 21:42 Dose: 12.5 mg Minoxidil (Lonitin -) 7.5 mg PO DAILY [facility] Last Admin: 06/18/17 16:28 Dose: 7.5 mg Morphine Sulfate (Morphine Injection -) 2 mg IVPUSH Q4H PRN PRN Reason: PAIN LEVEL 6-10 Last Admin: 06/18/17 16:39 Dose: 2 mg Spironolactone (Aldactone -) 50 mg PO BID [facility] Last Admin: 06/18/17 21:24 Dose: 50 mg - Objective Vital Signs: Vital Signs Temperature 98.5 F 06/19/17 06:00 Pulse Rate 73 06/19/17 06:00 Respiratory Rate 17 06/19/17 06:00 Blood Pressure 153/107 06/19/17 06:00 O2 Sat by Pulse Oximetry (%) 96 06/18/17 20:50 Constitutional: Yes: Well Nourished, No Distress Cardiovascular: Yes: Regular Rate and Rhythm, JVD, S1, S2. No: Gallop, Murmur Respiratory: Yes: Regular, CTA Bilaterally. No: Accessory Muscle Use, Rales, Wheezes Extremities: No: Cold Edema: No Neurological: Yes: Alert, Oriented Psychiatric: No: Agitated Labs: CBC, BMP 06/19/17 05:25 06/19/17 05:25 - ....Imaging EKG: Other (tele: NSR, NSVT x 5b) Assessment/Plan ekg: nsr, delayed r wave progression. non-specific t wave ab. prolonged qtc. no acute ischemic changes. tele: SR echo 06/2017: mild lve. 1+ conc lvh. mild dec lv sys fn. mild-mod lat wall HK. mod inferolateral wall HK. 1+ lae. 1+ ar, mod mr, nl aortic root size. small pericardial effusion (images reviewed by dr taylor: no regionality to LV hypokinesis--there is clearly global mild-moderate hypokinesis, EF 40-45%. moderate conc LVH. moderate MR) echo 03/2017: mod LVH (concentric); nl LVSF. nl RV. nl LA. mild AI/MR/TR. normal aortic root. small effusion cxr 06/2017: small bilateral pleural effusions with associated atelectasis. cardiomegaly. head ct: no acute pathology. chest CT 03/2017: Ascending aorta 4.1 cm. PA dilation (3.6 cm). Assessment/Plan 37 yo with h/o secondary HTN (hyperaldo) in [address] Luigi Mckay and hypertensive specialist Dr John ([facility]) who p/w nausea vomiting and noted to have hypertensive urgency/emergency, troponin elevation and madison. hypertensive emergency, known hyperaldosteronism - triggered by non-adherence to po meds due to naus and vomiting (not her prior high bp sx she says--has GI f/u at [facility], with EGD scheduled - cardene drip started in ICU, BP responded well. - usual BP lowering protocol (avoid over-rapid lowering), based on mean BP - con't clonidine patch, transition back to home po regimen (including spirono 50 qd) - remains on nicardipine gtt, required KCL total 140meq yest for repletion - 06/17: incr'd spironolactone to 50 bid. - 06/18: resumed home po meds, stopped nicardipine gtt. ? labetalol 600mg caused nausea/vomiting--decr'd dose to 400 bid. - 06/19: bp remains moderately elevated. K stable (only required 40meq KCL yesterday). suspect her nausea may be med induced (started last year, controlled adequately with anti-emetic regimen, worsened last week due to recent increase in dose of multiple meds). however given she takes all meds at the same time, and doses of several were increased simultaneously recently, it is impossible to suspect one individual med--though of note she became acutely nauseated after po labetalol given yesterday. - continue lower dose labetalol (400 bid, vs 600 bid prior), with remainder of regimen unchanged--if nausea remains improved and bp adequate, rec discharge home on this regimen with f/u with dr john (HTN specialist) within 5-7 days post-discharge. if vomiting continues, will try reduce labetalol back to 300mg ( on this until few weeks ago) and possibly increase spironolactone to 75 bid. - has had inconclusive adrenal vein sampling with dr rome, no plans for surgery - pt advised to f/u with dr john after discharge and make plan (for ? additional prn clonidine patch) for next time she cannot tolerate po meds transiently if having GI upset - aggressive repletion of K acute syst/diast (mixed) CHF: - nl LVSF 04/02, with evidence of mild chf on CT chest at that time - very poor GFR limits diuretics dosing - currently no sx's at all, however small pleural and pericardial effusions on imaging, and suspected JVD present - remains completely asymptomatic, hence lasix was deferred (MADISON and severe hypokalemia) - 06/18: creat 4.4, back to her prior baseline. - 06/19: creat up (4.9), K stable. d/w renal: will try lasix 80 po qd here (on 20 qd at home), monitor creat daily VTach: - short run NSVT 06/19 tele - aggressive K and Mag repletion as doing - EF >40%, hence not high risk for ventricular arrhythmia (+) intermediate troponin elevation, atypical CP: - pt endorses chronic sx's of atypical CP when misses her HTN meds: ? sec to acute bp elevation, vs sec to retching/vomiting (this has been happening often for several weeks, as cause of missed meds--GI w/u ongoing as outpt) - flat, intermediate troponin elevation 03/2017 (0.2 range), likely due to LVH with uncontrolled BP. also ? chf at that time - initial trop here 0.5-->0.3. EKG without acute ischemic changes. - no anginal sx's (naus/vomiting are not new, seeing GI and has w/u scheduled - very likely troponins are related to acute HTN emergency-->increased LV myocardial wall tension (i.e. Type II NH). - doubt ACS clinically. - rec defer stress testing given risks of precipitating severe HTN emergency with exercise or dobutamine, and risks of breast irradiation in 37 yo female. - highly likely LV dysfunction is sec to acute HTN crisis. outpt f/u with cardio (dr mckay)--if LVEF remains down once BP is improved for 6-12 weeks, would rec ischemia evaluation at that time. - will hold asa and statin for now prolonged QT: - sec to K <3 - lytes repletion as doing - no VF on tele, cont to monitor - 06/18 rpt ECG with manual QTC improved (461 msec), i.e. WNL mild asc aorta dilation on 03/[address] - no significant enlargement on echo - no s/sx of acute aorta pathology here (see above re: atyp CP is non- cardiovascular sx) CKD vs MADISON component: - baseline creat 4.5. initially 5.1 here, now back to near-baseline - renal following. est time in pt exam, review of data, and formulation of mgmt plan of potentially life-threatening problems = 35 min
[2017-06-19] MEDS ORDERED: PT OWN MED DRAWER 7, Y5N ONE (09:31)
[2017-06-19] MEDS: LABETALOL HCL 200 MG TABLET (FP) PO SCH ×2 (09:42→21:49)
[2017-06-19] MEDS: SPIRONOLACTONE 25 MG TABLET (FP) PO SCH ×2 (09:43→22:02)
[2017-06-19] MEDS: ASPIRIN COATED 81 MG TABLET.EC PO SCH (09:43)
[2017-06-19] MEDS: HEPARIN NA (PORCINE) 5,000 UNITS/ML 1ML VIAL SQ SCH ×3 (09:44→21:50)
[2017-06-19] MEDS: MINOXIDIL 2.5 MG TABLET PO SCH (09:45)
[2017-06-19] MEDS ORDERED: DOXAZOSIN MESYLATE 4 MG TABLET PO SCH (10:00)
[2017-06-19] MEDS ORDERED: amLODIPine BESYLATE 10 MG TABLET (FP) PO SCH (10:00)
[2017-06-19] MEDS ORDERED: cloNIDine-TTS 0.3 MG /24 HRS PATCH.TDWK TD SCH (10:00)
[2017-06-19] MEDS ORDERED: POTASSIUM CHLORIDE TABS 20 MEQ TABLET.ER (FP) PO SCH ×4 (10:00→22:00)
[2017-06-19] MEDS ORDERED: FUROSEMIDE 40 MG TABLET (FP) PO SCH (11:30)
--- NOTE | 2017-06-19 12:42 | PN ---
Teaching Attending Note Name of Resident: Nirav Francisco ATTENDING PHYSICIAN STATEMENT I saw and evaluated the patient. I reviewed the resident's note and discussed the case with the resident. I agree with the resident's findings and plan as documented. SUBJECTIVE: Patient seen and examined in the ICU. Currently off Cardene drip. Slow rise in BP, but overall better. No CP or SOB. No BOV, BOYER, or dizziness. Intake & Output 06/16/17 06/17/17 06/18/17 06/19/17 23:59 23:59 23:59 23:59 Intake Total 1375 2450 2295 Output Total 301 Balance 1375 2149 2295 Weight 165 lb 6.4 oz 168 lb 3.2 oz 170 lb 14.4 oz 169 lb 8 oz Last Vital Signs Temp Pulse Resp BP Pulse Ox 98.6 F 78 18 135/97 96 06/19/17 10:00 06/19/17 12:05 06/19/17 12:05 06/19/17 12:05 06/19/17 09:02 Active Medications Acetaminophen (Tylenol -) 650 mg PO Q6H PRN PRN Reason: PAIN LEVEL 6-10 Amlodipine Besylate (Norvasc -) 10 mg PO DAILY [facility] Last Admin: 06/19/17 09:43 Dose: 10 mg Aspirin (Ecotrin -) 81 mg PO DAILY [facility] Last Admin: 06/19/17 09:43 Dose: 81 mg Atorvastatin Calcium (Lipitor -) 40 mg PO HS [facility] Last Admin: 06/18/17 22:02 Dose: Not Given Clonidine HCl (Catapres Tts Patch -) 0.3 mg TD Mo@1000 [facility] Last Admin: 06/19/17 09:43 Dose: 0.3 mg Doxazosin Mesylate (Cardura -) 8 mg PO BID [facility] Last Admin: 06/19/17 09:44 Dose: 8 mg Furosemide (Lasix -) 80 mg PO DAILY [facility] Last Admin: 06/19/17 12:17 Dose: 80 mg Heparin Sodium (Porcine) (Heparin -) 5,000 unit SQ BID [facility] Last Admin: 06/19/17 09:49 Dose: Not Given Labetalol HCl (Normodyne -) 400 mg PO BID [facility] Last Admin: 06/19/17 09:42 Dose: 400 mg Meclizine HCl (Antivert -) 12.5 mg PO Q6H PRN PRN Reason: NAUSEA Last Admin: 06/17/17 21:42 Dose: 12.5 mg Minoxidil (Lonitin -) 7.5 mg PO DAILY [facility] Last Admin: 06/19/17 09:45 Dose: 7.5 mg Morphine Sulfate (Morphine Injection -) 2 mg IVPUSH Q4H PRN PRN Reason: PAIN LEVEL 6-10 Last Admin: 06/18/17 16:39 Dose: 2 mg Potassium Chloride (K-Dur -) 40 meq PO BID [facility] Last Admin: 06/19/17 12:22 Dose: 40 meq Spironolactone (Aldactone -) 50 mg PO BID [facility] Last Admin: 06/19/17 09:43 Dose: 50 mg Gen: NAD at rest Heart: RRR Lung: decreased breath sounds at the bases Abd: soft, nontender Ext: no edema Intake & Output 06/16/17 06/17/17 06/18/17 06/19/17 23:59 23:59 23:59 23:59 Intake Total 1375 2450 2295 Output Total 301 Balance 1375 2149 2295 Weight 165 lb 6.4 oz 168 lb 3.2 oz 170 lb 14.4 oz 169 lb 8 oz Last Vital Signs Temp Pulse Resp BP Pulse Ox 98.6 F 78 18 135/97 96 06/19/17 10:00 06/19/17 12:05 06/19/17 12:05 06/19/17 12:05 06/19/17 09:02 Active Medications Acetaminophen (Tylenol -) 650 mg PO Q6H PRN PRN Reason: PAIN LEVEL 6-10 Amlodipine Besylate (Norvasc -) 10 mg PO DAILY [facility] Last Admin: 06/19/17 09:43 Dose: 10 mg Aspirin (Ecotrin -) 81 mg PO DAILY [facility] Last Admin: 06/19/17 09:43 Dose: 81 mg Atorvastatin Calcium (Lipitor -) 40 mg PO HS [facility] Last Admin: 06/18/17 22:02 Dose: Not Given Clonidine HCl (Catapres Tts Patch -) 0.3 mg TD Mo@1000 [facility] Last Admin: 06/19/17 09:43 Dose: 0.3 mg Doxazosin Mesylate (Cardura -) 8 mg PO BID [facility] Last Admin: 06/19/17 09:44 Dose: 8 mg Furosemide (Lasix -) 80 mg PO DAILY [facility] Last Admin: 06/19/17 12:17 Dose: 80 mg Heparin Sodium (Porcine) (Heparin -) 5,000 unit SQ BID [facility] Last Admin: 06/19/17 09:49 Dose: Not Given Labetalol HCl (Normodyne -) 400 mg PO BID [facility] Last Admin: 06/19/17 09:42 Dose: 400 mg Meclizine HCl (Antivert -) 12.5 mg PO Q6H PRN PRN Reason: NAUSEA Last Admin: 06/17/17 21:42 Dose: 12.5 mg Minoxidil (Lonitin -) 7.5 mg PO DAILY [facility] Last Admin: 06/19/17 09:45 Dose: 7.5 mg Morphine Sulfate (Morphine Injection -) 2 mg IVPUSH Q4H PRN PRN Reason: PAIN LEVEL 6-10 Last Admin: 06/18/17 16:39 Dose: 2 mg Potassium Chloride (K-Dur -) 40 meq PO BID [facility] Last Admin: 06/19/17 12:22 Dose: 40 meq Spironolactone (Aldactone -) 50 mg PO BID [facility] Last Admin: 06/19/17 09:43 Dose: 50 mg A/P Hypertensive Urgency Hyperalosteronism Acute on CKD +Troponins likely from above Hypokalemia - titrate oral BP meds, resume home regimen - agree with aldactone - replete lytes - PO as tolerated - DVT prophylaxis - Cardiac telemetry Dr Iraheta Critical care time spent in reviewing chart, evaluating patient and formulating plan - 36 minutes.
[2017-06-19] MEDS: MORPHINE SULFATE 10 MG/1 ML *VIAL IVPUSH PRN (13:15)
[2017-06-19] MEDS ORDERED: morphine SULFATE 4 MG/ML VIAL ONE (13:17)
--- NOTE | 2017-06-19 16:37 | PN ---
Progress Note, Physician History of Present Illness: Pt seen and examined at bedside. She is awake and alert. She denies shortness of breath. - Current Medication List Current Medications: Active Medications Acetaminophen (Tylenol -) 650 mg PO Q6H PRN PRN Reason: PAIN LEVEL 6-10 Amlodipine Besylate (Norvasc -) 10 mg PO DAILY [facility] Last Admin: 06/19/17 09:43 Dose: 10 mg Aspirin (Ecotrin -) 81 mg PO DAILY [facility] Last Admin: 06/19/17 09:43 Dose: 81 mg Atorvastatin Calcium (Lipitor -) 40 mg PO HS [facility] Last Admin: 06/18/17 22:02 Dose: Not Given Clonidine HCl (Catapres Tts Patch -) 0.3 mg TD Mo@1000 [facility] Last Admin: 06/19/17 09:43 Dose: 0.3 mg Doxazosin Mesylate (Cardura -) 8 mg PO BID [facility] Last Admin: 06/19/17 09:44 Dose: 8 mg Furosemide (Lasix -) 80 mg PO DAILY [facility] Last Admin: 06/19/17 12:17 Dose: 80 mg Heparin Sodium (Porcine) (Heparin -) 5,000 unit SQ BID [facility] Last Admin: 06/19/17 09:49 Dose: Not Given Labetalol HCl (Normodyne -) 400 mg PO BID [facility] Last Admin: 06/19/17 09:42 Dose: 400 mg Meclizine HCl (Antivert -) 12.5 mg PO Q6H PRN PRN Reason: NAUSEA Last Admin: 06/17/17 21:42 Dose: 12.5 mg Minoxidil (Lonitin -) 7.5 mg PO DAILY [facility] Last Admin: 06/19/17 09:45 Dose: 7.5 mg Morphine Sulfate (Morphine Injection -) 2 mg IVPUSH Q4H PRN PRN Reason: PAIN LEVEL 6-10 Last Admin: 06/18/17 16:39 Dose: 2 mg Potassium Chloride (K-Dur -) 40 meq PO BID [facility] Last Admin: 06/19/17 12:22 Dose: 40 meq Spironolactone (Aldactone -) 50 mg PO BID [facility] Last Admin: 06/19/17 09:43 Dose: 50 mg - Objective Vital Signs: Vital Signs Temperature 98.6 F 06/19/17 15:50 Pulse Rate 76 06/19/17 15:50 Respiratory Rate 18 06/19/17 15:50 Blood Pressure 125/95 06/19/17 15:50 O2 Sat by Pulse Oximetry (%) 96 06/19/17 09:02 Constitutional: Yes: Calm Eyes: Yes: Conjunctiva Clear HENT: Yes: Atraumatic Cardiovascular: Yes: S1, S2 Respiratory: Yes: CTA Bilaterally Gastrointestinal: Yes: Soft Genitourinary: Yes: WNL Musculoskeletal: Yes: WNL Extremities: Yes: WNL Edema: No Integumentary: Yes: Tattoos Neurological: Yes: Oriented Psychiatric: Yes: Oriented Labs: CBC, BMP 06/19/17 05:25 06/19/17 05:25 Problem List - Problems (1) CKD (chronic kidney disease) Code(s): N18.9 - CHRONIC KIDNEY DISEASE, UNSPECIFIED (2) Hyperaldosteronism Code(s): E26.9 - HYPERALDOSTERONISM, UNSPECIFIED (3) Hypokalemia Code(s): E87.6 - HYPOKALEMIA Assessment/Plan Current Medications Generic Name Dose Route Start Last Admin Trade Name Freq PRN Reason Stop Dose Admin Acetaminophen 650 mg 06/16/17 12:25 Tylenol - PO Q6H PRN PAIN LEVEL 6-10 Amlodipine Besylate 10 mg 06/19/17 10:00 06/19/17 09:43 Norvasc - PO 10 mg DAILY [facility] Administration Aspirin 81 mg 06/17/17 10:00 06/19/17 09:43 Ecotrin - PO 81 mg DAILY [facility] Administration Atorvastatin Calcium 40 mg 06/17/17 22:00 06/18/17 22:02 Lipitor - PO Not Given HS [facility] Clonidine HCl 0.3 mg 06/19/17 10:00 06/19/17 09:43 Catapres Tts Patch - TD 0.3 mg Mo@1000 [facility] Administration Doxazosin Mesylate 8 mg 06/19/17 10:00 06/19/17 09:44 Cardura - PO 8 mg BID [facility] Administration Furosemide 80 mg 06/19/17 11:30 06/19/17 12:17 Lasix - PO 80 mg DAILY [facility] Administration Heparin Sodium (Porcine) 5,000 unit 06/16/17 22:00 06/19/17 09:49 Heparin - SQ Not Given BID [facility] Labetalol HCl 400 mg 06/18/17 22:00 06/19/17 09:42 Normodyne - PO 400 mg BID [facility] Administration Meclizine HCl 12.5 mg 06/17/17 21:31 06/17/17 21:42 Antivert - PO 12.5 mg Q6H PRN Administration NAUSEA Minoxidil 7.5 mg 06/18/17 10:30 06/19/17 09:45 Lonitin - PO 7.5 mg DAILY [facility] Administration Morphine Sulfate 2 mg 06/16/17 18:30 06/18/17 16:39 Morphine Injection - IVPUSH 2 mg Q4H PRN Administration PAIN LEVEL 6-10 Potassium Chloride 40 meq 06/19/17 12:45 06/19/17 12:22 K-Dur - PO 40 meq BID [facility] Administration Spironolactone 50 mg 06/17/17 22:00 06/19/17 09:43 Aldactone - PO 50 mg BID [facility] Administration Impression 1. Conn/hyperaldo 2. htn emergency 3. CKD 4. MADISON 5. HTN poorly controlled 6. non compliance 7. vomiting Plan - blood pressure has stabilized - will need to monitor potassium very closely - pt in not compliant as outpt - renal function is worsening, discussed preparation for HD however she is refusing a fistula - cont with diuretics - monitor lytes closely - con to monitor BP - will follow Dr Sunshine
--- NOTE | 2017-06-19 17:06 | PN ---
Teaching Attending Note Name of Resident: Sina Arthur ATTENDING PHYSICIAN STATEMENT I saw and evaluated the patient. I reviewed the resident's note and discussed the case with the resident. I agree with the resident's findings and plan as documented. SUBJECTIVE: Patient is comfortable, blood pressure is better controlled, off Cardine today. at bedside. OBJECTIVE: Vital Signs Temperature 98.6 F 06/19/17 15:50 Pulse Rate 76 06/19/17 15:50 Respiratory Rate 18 06/19/17 15:50 Blood Pressure 125/95 06/19/17 15:50 O2 Sat by Pulse Oximetry (%) 96 06/19/17 09:02 CBCD WBC 5.0 K/mm3 (4.0-10.0) 06/19/17 05:25 RBC 2.57 M/mm3 (3.60-5.2) L 06/19/17 05:25 Hgb 7.7 GM/dL (10.7-15.3) L D 06/19/17 05:25 Hct 22.7 % (32.4-45.2) L 06/19/17 05:25 MCV 88.1 fl (80-96) 06/19/17 05:25 MCHC 33.8 g/dl (32.0-36.0) 06/19/17 05:25 RDW 15.4 % (11.6-15.6) 06/19/17 05:25 Plt Count 182 K/MM3 (134-434) D 06/19/17 05:25 MPV 7.9 fl (7.5-11.1) 06/19/17 05:25 CMP Sodium 137 mmol/L (136-145) 06/19/17 05:25 Potassium 3.6 mmol/L (3.5-5.1) 06/19/17 05:25 Chloride 103 mmol/L (98-107) 06/19/17 05:25 Carbon Dioxide 25 mmol/L (21-32) 06/19/17 05:25 Anion Gap 9 (8-16) 06/19/17 05:25 BUN 29 mg/dL (7-18) H 06/19/17 05:25 Creatinine 4.9 mg/dL (0.55-1.02) H 06/19/17 05:25 Creat Clearance w eGFR 9.86 (>60) 06/19/17 05:25 Random Glucose 84 mg/dL (74-106) 06/19/17 05:25 Calcium 8.3 mg/dL (8.5-10.1) L 06/19/17 05:25 Total Bilirubin 0.5 mg/dL (0.2-1.0) D 06/19/17 05:25 AST 10 U/L (15-37) L 06/19/17 05:25 ALT 17 U/L (12-78) 06/19/17 05:25 Alkaline Phosphatase 52 U/L (45-117) 06/19/17 05:25 Total Protein 5.7 g/dl (6.4-8.2) L 06/19/17 05:25 Albumin 3.1 g/dl (3.4-5.0) L 06/19/17 05:25 CARDIAC ENZYMES Creatine Kinase 228 IU/L (26-192) H 06/16/17 08:30 Troponin I 0.31 ng/ml (0.00-0.05) H 06/16/17 21:05 Current Medications Generic Name Dose Route Start Last Admin Trade Name Freq PRN Reason Stop Dose Admin Acetaminophen 650 mg 06/16/17 12:25 Tylenol - PO Q6H PRN PAIN LEVEL 6-10 Amlodipine Besylate 10 mg 06/19/17 10:00 06/19/17 09:43 Norvasc - PO 10 mg DAILY [facility] Administration Aspirin 81 mg 06/17/17 10:00 06/19/17 09:43 Ecotrin - PO 81 mg DAILY [facility] Administration Atorvastatin Calcium 40 mg 06/17/17 22:00 06/18/17 22:02 Lipitor - PO Not Given HS [facility] Clonidine HCl 0.3 mg 06/19/17 10:00 06/19/17 09:43 Catapres Tts Patch - TD 0.3 mg Mo@1000 [facility] Administration Doxazosin Mesylate 8 mg 06/19/17 10:00 06/19/17 09:44 Cardura - PO 8 mg BID [facility] Administration Furosemide 80 mg 06/19/17 11:30 06/19/17 12:17 Lasix - PO 80 mg DAILY [facility] Administration Heparin Sodium (Porcine) 5,000 unit 06/16/17 22:00 06/19/17 09:49 Heparin - SQ Not Given BID [facility] Labetalol HCl 400 mg 06/18/17 22:00 06/19/17 09:42 Normodyne - PO 400 mg BID [facility] Administration Meclizine HCl 12.5 mg 06/17/17 21:31 06/17/17 21:42 Antivert - PO 12.5 mg Q6H PRN Administration NAUSEA Minoxidil 7.5 mg 06/18/17 10:30 06/19/17 09:45 Lonitin - PO 7.5 mg DAILY [facility] Administration Morphine Sulfate 2 mg 06/16/17 18:30 06/18/17 16:39 Morphine Injection - IVPUSH 2 mg Q4H PRN Administration PAIN LEVEL 6-10 Potassium Chloride 40 meq 06/19/17 12:45 06/19/17 12:22 K-Dur - PO 40 meq BID [facility] Administration Spironolactone 50 mg 06/17/17 22:00 06/19/17 09:43 Aldactone - PO 50 mg BID [facility] Administration Home Medications Medication Instructions Recorded Amlodipine Besylate 10 mg PO DAILY 04/01/17 Labetalol HCl [Normodyne -] 600 mg PO BID 04/01/17 Spironolactone 50 mg PO DAILY 04/01/17 Clonidine Patch [Catapres Tts 0.3 mg TD WEEKLY 04/02/17 Patch -] Doxazosin Mesylate 16 mg PO DAILY 04/02/17 Minoxidil [Minoxidil -] 7.5 mg PO DAILY 04/02/17 Furosemide [Lasix] 20 mg PO DAILY 06/16/17 PE: as per resident's note ekg: nsr, delayed r wave progression. non-specific t wave ab. prolonged qtc. no acute ischemic changes. tele: SR echo 06/2017: mild lve. 1+ conc lvh. mild dec lv sys fn. mild-mod lat wall HK. mod inferolateral wall HK. 1+ lae. 1+ ar, mod mr, nl aortic root size. small pericardial effusion echo 03/2017: mod LVH (concentric); nl LVSF. nl RV. nl LA. mild AI/MR/TR. normal aortic root. small effusion cxr 06/2017: small bilateral pleural effusions with associated atelectasis. cardiomegaly. head ct: no acute pathology. chest CT 03/2017: Mixed consolidative and groundglass opacity in RUL c/w pna. Small bibasilar layering pleural effusions. Ascending aorta 4.1 cm. PA dilation (3.6 cm). Liver findings noted. ASSESSMENT AND PLAN: This is a 37 year old female with a significant PMH of uncontrolled HTN, hyperaldosteronism, CKD who presented to the hospital complaining of chest pain and headache that started 2 days ago. She is admitted for uncontrolled BP, elevated troponons and MADISON on CKD. # Hypertensive emergency: better controlled today on po meds now, labetolol, lasix, cardura, norvasc , spironolactone , off Nicardine drip , started on po meds. # Elevated Troponin (also was noted on 03/2017) , demand Ischemia most likely due to Hypertensive Emergency. EKG No acute ischemic changes chest pain resolved.As per Dr. Mendenhall: new wall motion abnormalities on echo noted in comparison to 03/2017. will discuss with cardio whether she needs inpatient stress test .Continue aspirin and statin. #MADISON on CKD: last admission 4.1-4.5, today 5.1, US kidney ordered, nephro consult on the case , w/u is in process. was suggested for the patient to have a fistula, patient is refusing . #Acute Headache due to hypertensive emergency improved post better controlling BP , CT of the head negative for acute pathology # Hyperaldosteronism: Potassium repeleted. and increased to 100mg daily as per [employer] developer suggestion.Potassium is 3.6 today According to the pt she has adrenal mass and had workup done but her results were nonconclusive , no intervention was done to remove the mass # Anemia: hgb of 9.0--> 7.7, iron studies ordered, FOBT ordered # Prolonged QT ; replete potassium DVT PPx: SCDs, heparin SQ BID
--- NOTE | 2017-06-19 18:26 | PN ---
Physical Exam: SUBJECTIVE: Patient seen and examined at bedside. No acute events over night . blood pressure is better controlled. denies any chest pain , palpitation, headache, no dizziness or sob. OBJECTIVE: Vital Signs Period Temp Pulse Resp BP Sys/Li Pulse Ox Last 24 Hr 98.2 F-98.6 F 73-86 16-18 125-164/87-113 96-96 GENERAL: AAOx3 in NAD HEAD: NC/AT EYES: EOMI, Conjunctiva clear, sclera anicteric ENT: moist mucous membrane NECK: Supple, no JVD LUNGS: decreased breath sounds at bases, no crackles no wheezing no accessory muscle use. HEART: RRR, NSR, normal s1, s2, murmur no M/R/G ABDOMEN: Soft, ND, NT, +BS 4 Q, no CVA Tenderness LOWER EXTREMITIES: no edema, +2DP pulse, NEUROLOGICAL: No focal deficit. Normal speech. gait not observed. PSYCHIATRIC: Cooperative. Good eye contact. Appropriate mood and affect. SKIN: Warm, dry,tattoes all over her body Laboratory Results - last 24 hr 06/19/17 06/19/17 05:25 05:25 WBC 5.0 RBC 2.57 L Hgb 7.7 L D Hct 22.7 L MCV 88.1 MCH 29.8 MCHC 33.8 RDW 15.4 Plt Count 182 D MPV 7.9 Neutrophils % 67.1 Lymphocytes % 23.1 D Monocytes % 5.2 Eosinophils % 4.4 Basophils % 0.2 Sodium 137 Potassium 3.6 Chloride 103 Carbon Dioxide 25 Anion Gap 9 BUN 29 H Creatinine 4.9 H Creat Clearance w eGFR 9.86 Random Glucose 84 Calcium 8.3 L Phosphorus 4.3 Magnesium 2.4 Total Bilirubin 0.5 D AST 10 L ALT 17 Alkaline Phosphatase 52 Total Protein 5.7 L Albumin 3.1 L Active Medications Generic Name Dose Route Start Last Admin Trade Name Freq PRN Reason Stop Dose Admin Acetaminophen 650 mg 06/16/17 12:25 Tylenol - PO Q6H PRN PAIN LEVEL 6-10 Amlodipine Besylate 10 mg 06/19/17 10:00 06/19/17 09:43 Norvasc - PO 10 mg DAILY [facility] Administration Aspirin 81 mg 06/17/17 10:00 06/19/17 09:43 Ecotrin - PO 81 mg DAILY [facility] Administration Atorvastatin Calcium 40 mg 06/17/17 22:00 06/18/17 22:02 Lipitor - PO Not Given HS BRET Clonidine HCl 0.3 mg 06/19/17 10:00 06/19/17 09:43 Catapres Tts Patch - TD 0.3 mg Mo@1000 [facility] Administration Doxazosin Mesylate 8 mg 06/19/17 10:00 06/19/17 09:44 Cardura - PO 8 mg BID [facility] Administration Furosemide 80 mg 06/19/17 11:30 06/19/17 12:17 Lasix - PO 80 mg DAILY [facility] Administration Heparin Sodium (Porcine) 5,000 unit 06/16/17 22:00 06/19/17 09:49 Heparin - SQ Not Given BID [facility] Labetalol HCl 400 mg 06/18/17 22:00 06/19/17 09:42 Normodyne - PO 400 mg BID [facility] Administration Meclizine HCl 12.5 mg 06/17/17 21:31 06/17/17 21:42 Antivert - PO 12.5 mg Q6H PRN Administration NAUSEA Minoxidil 7.5 mg 06/18/17 10:30 06/19/17 09:45 Lonitin - PO 7.5 mg DAILY [facility] Administration Morphine Sulfate 2 mg 06/16/17 18:30 06/18/17 16:39 Morphine Injection - IVPUSH 2 mg Q4H PRN Administration PAIN LEVEL 6-10 Potassium Chloride 40 meq 06/19/17 12:45 06/19/17 12:22 K-Dur - PO 40 meq BID [facility] Administration Spironolactone 50 mg 06/17/17 22:00 06/19/17 09:43 Aldactone - PO 50 mg BID [facility]RET Administration CBC, BMP 06/19/17 05:25 06/19/17 05:25 ASSESSMENT/PLAN: This is a 37 year old female with a significant PMH of uncontrolled HTN, hyperaldosteronism, CKD who presented to the hospital complaining of chest pain and headache that started 2 days ago. She is admitted for uncontrolled BP, elevated troponons and MADISON on CKD. Hypertensive emergency: * possibly related to medication non compliance, worsened kidney function * still on Cardene drip, goal of BP systolic 140-150, when off the drip we will start amlodypine 10 mg * cont Laisx * continue Spironolactone 50mg daily * continue cardiac monitoring * f/u cardiology recommendations-home BP medications were confirmed with the pt on admission Chest pain: * elevated troponin on admission, normalized * EKG reviewed, no milan/std, no acute changes * cardiac monitoring * new wall motion abnormalities on echo noted in comparison to 03/2017. Will likely need inpatient ischemic evaluation once hypertension controlled * cont. asa and statin * Cardiology consulted * pleural effusions noted in CXR * Pulmonary f/u Headache, resolving,likely related to BP * CT negative for acute pathology * Tylenol 650 mg Q6H and Morphine 2 mg Q4H PRN MADISON on CKD: * improving * US kidney: no acute pathology, consistent with chronic changes * urine electrolytes ordered, FeNa 2.3 % suggest intrinsic renal failure * Nephrology-Dr Sunshine consulted, will f/u recommendations Hyperaldosteronism: * CT abdomen without contrast (only PO) done that didn't reveal any adrenal mass * urine adrenal nausea and vomiting, resolved Hypokalemia, resolved * repleated, 3.6 today Anemia: * Hgb 7.7/22.7 * chronic anemia, no melena, hematemesis reported * TIBC, ferritin, transferin nl, iron saturtion low-13 * FOBT ordered, not collected DVT PPX; * SCDs * heparin SQ BID F/E/N: no/low K/low sodium Dispo: * ICU Visit type - Emergency Visit Emergency Visit: Yes ED Registration Date: 06/16/17 Care time: The patient presented to the Emergency Department on the above date and was hospitalized for further evaluation of their emergent condition. - New Patient This patient is new to me today: No - Critical Care Critical Care patient: No
[2017-06-19] MEDS ORDERED: MECLIZINE HCL 12.5 MG TABLET PO PRN (19:14)
[2017-06-19] MEDS ORDERED: ACETAMINOPHEN 325 MG TABLET (FP) PO PRN (19:14)
[2017-06-19] MEDS ORDERED: MORPHINE SULFATE 10 MG/1 ML *VIAL IVPUSH ONE (19:44)
[2017-06-19] MEDS ORDERED: ATORVASTATIN CA 40 MG TABLET (FP) PO SCH (22:00)
[2017-06-19] MEDS: DOXAZOSIN MESYLATE 4 MG TABLET PO SCH (22:02)
[2017-06-19] MEDS ORDERED: morphine SULFATE 4 MG/ML VIAL IVPUSH ONE (23:30)
[2017-06-20 06:00] LABS: HEMATOCRIT 21.5 % (32.4-45.2); HEMOGLOBIN 7.3 GM/dL (10.7-15.3); MCH 29.8 pg (25.7-33.7); MCHC 34.1 g/dl (32.0-36.0); MEAN CELL VOLUME 87.4 fl (80-96); MEAN PLT VOLUME 7.9 fl (7.5-11.1); PLATELET COUNT 168 K/MM3 (134-434); RBC 2.46 M/mm3 (3.60-5.2); RDW 15.4 % (11.6-15.6); WHITE BLOOD COUNT 3.6 K/mm3 (4.0-10.0)
[2017-06-20 06:25] LABS: ANION GAP 7 (8-16); BLOOD UREA NITROGEN 38 mg/dL (7-18); CALCIUM 8.6 mg/dL (8.5-10.1); CHLORIDE 106 mmol/L (98-107); CO2 25 mmol/L (21-32); CREATININE 5.1 mg/dL (0.55-1.02); GLUCOSE,RANDOM 84 mg/dL (74-106); MAGNESIUM 2.4 mg/dL (1.8-2.4); PHOSPHOROUS 4.8 mg/dL (2.5-4.9); POTASSIUM 4.3 mmol/L (3.5-5.1); SODIUM 138 mmol/L (136-145)
[2017-06-20] MEDS ORDERED: PT OWN MED DRAWER 7, Y5N ONE (09:46)
[2017-06-20] MEDS: SPIRONOLACTONE 25 MG TABLET (FP) PO SCH (09:48)
[2017-06-20] MEDS: DOXAZOSIN MESYLATE 4 MG TABLET PO SCH (09:51)
[2017-06-20] MEDS: LABETALOL HCL 200 MG TABLET (FP) PO SCH (09:53)
[2017-06-20] MEDS: HEPARIN NA (PORCINE) 5,000 UNITS/ML 1ML VIAL SQ SCH ×2 (09:54→10:03)
--- NOTE | 2017-06-20 09:59 | PN ---
Physical Exam: SUBJECTIVE: Patient seen and examined no acute events over night . BP is better controlled. OBJECTIVE: Vital Signs Period Temp Pulse Resp BP Sys/Li Pulse Ox Last 24 Hr 98.2 F-98.6 F 62-86 15-20 125-164/86-113 97-98 GENERAL: The patient is awake, alert, and fully oriented, in no acute distress. HEAD: Normal with no signs of trauma. EYES: PERRL, extraocular movements intact, sclera anicteric, conjunctiva clear. No ptosis. ENT: Ears normal, nares patent, oropharynx clear without exudates, moist mucous membranes. NECK: Trachea midline, full range of motion, supple. LUNGS: Breath sounds equal, clear to auscultation bilaterally, no wheezes, no crackles, no accessory muscle use. HEART: Regular rate and rhythm, S1, S2 without murmur, rub or gallop. ABDOMEN: Soft, nontender, nondistended, normoactive bowel sounds, no guarding, no rebound, no hepatosplenomegaly, no masses. EXTREMITIES: 2+ pulses, warm, well-perfused, no edema. NEUROLOGICAL: Cranial nerves II through XII grossly intact. Normal speech, gait not observed. PSYCH: Normal mood, normal affect. SKIN: Warm, dry, normal turgor, no rashes or lesions noted Laboratory Results - last 24 hr 06/18/17 06/20/17 06/20/17 06:05 05:40 05:40 WBC 3.6 L RBC 2.46 L Hgb 7.3 L Hct 21.5 L MCV 87.4 MCH 29.8 MCHC 34.1 RDW 15.4 Plt Count 168 MPV 7.9 Sodium 138 Potassium 4.3 Chloride 106 Carbon Dioxide 25 Anion Gap 7 L BUN 38 H Creatinine 5.1 H Random Glucose 84 Calcium 8.6 Phosphorus 4.8 Magnesium 2.4 Free T3 2.2 Active Medications Generic Name Dose Route Start Last Admin Trade Name Freq PRN Reason Stop Dose Admin Acetaminophen 650 mg 06/19/17 19:14 Tylenol - PO Q6H PRN PAIN LEVEL 6-10 Amlodipine Besylate 10 mg 06/20/17 10:00 06/20/17 09:53 Norvasc - PO 10 mg DAILY [facility] Administration Aspirin 81 mg 06/20/17 10:06/20/17 09:49 Ecotrin - PO 81 mg DAILY [facility] Administration Atorvastatin Calcium 40 mg 06/19/17 22:00 06/19/17 21:50 Lipitor - PO 40 mg HS [facility]RET Administration Clonidine HCl 0.3 mg 06/26/17 10:00 Catapres Tts Patch - TD Mo@1000 [facility] Doxazosin Mesylate 8 mg 06/19/17 22:00 06/20/17 09:51 Cardura - PO 8 mg BID [facility] Administration Furosemide 80 mg 06/20/17 10:00 06/20/17 09:51 Lasix - PO 80 mg DAILY [facility] Administration Heparin Sodium (Porcine) 5,000 unit 06/19/17 22:00 06/20/17 09:54 Heparin - SQ 5,000 unit BID BRET Administration Labetalol HCl 400 mg 06/19/17 22:00 06/20/17 09:53 Normodyne - PO 400 mg BID BRET Administration Meclizine HCl 12.5 mg 06/19/17 19:14 Antivert - PO Q6H PRN NAUSEA Minoxidil 7.5 mg 06/20/17 10:00 06/20/17 09:52 Lonitin - PO 7.5 mg DAILY BRET Administration Potassium Chloride 40 meq 06/19/17 22:00 06/19/17 21:49 K-Dur - PO 40 meq BID BRET Administration Spironolactone 50 mg 06/19/17 22:00 06/20/17 09:48 Aldactone - PO 50 mg BID BRET Administration CBC, BMP 06/20/17 05:40 06/20/17 05:40 ASSESSMENT/PLAN:
[2017-06-20] MEDS ORDERED: amLODIPine BESYLATE 10 MG TABLET (FP) PO SCH (10:00)
[2017-06-20] MEDS ORDERED: FUROSEMIDE 40 MG TABLET (FP) PO SCH (10:00)
[2017-06-20] MEDS ORDERED: MINOXIDIL 2.5 MG TABLET PO SCH (10:00)
[2017-06-20] MEDS ORDERED: ASPIRIN COATED 81 MG TABLET.EC PO SCH (10:00)
[2017-06-20 11:55] VITALS: PULSE 76
--- NOTE | 2017-06-20 12:39 | PN ---
Teaching Attending Note Name of Resident: Nirav Francisco ATTENDING PHYSICIAN STATEMENT I saw and evaluated the patient. I reviewed the resident's note and discussed the case with the resident. I agree with the resident's findings and plan as documented. SUBJECTIVE: Patient seen and examined in the ICU. Remains off Cardene drip. BP remains elevated, but beter controlled. No CP or SOB. No BOV, BOYER, or dizziness. Noted rise in creatinine. Intake & Output 06/17/17 06/18/17 06/19/17 06/20/17 23:59 23:59 23:59 23:59 Intake Total 2450 2295 100 400 Output Total 301 Balance 2149 2295 100 400 Weight 168 lb 3.2 oz 170 lb 14.4 oz 169 lb 8 oz 164 lb 0.383 oz Last Vital Signs Temp Pulse Resp BP Pulse Ox 98.2 F 76 18 139/101 98 06/20/17 05:58 06/20/17 11:55 06/20/17 11:55 06/20/17 11:55 06/20/17 07:16 Active Medications Acetaminophen (Tylenol -) 650 mg PO Q6H PRN PRN Reason: PAIN LEVEL 6-10 Amlodipine Besylate (Norvasc -) 10 mg PO DAILY [facility] Last Admin: 06/20/17 09:53 Dose: 10 mg Aspirin (Ecotrin -) 81 mg PO DAILY [facility] Last Admin: 06/20/17 09:49 Dose: 81 mg Atorvastatin Calcium (Lipitor -) 40 mg PO HS [facility] Last Admin: 06/19/17 21:50 Dose: 40 mg Clonidine HCl (Catapres Tts Patch -) 0.3 mg TD Mo@1000 [facility] Doxazosin Mesylate (Cardura -) 8 mg PO BID [facility] Last Admin: 06/20/17 09:51 Dose: 8 mg Furosemide (Lasix -) 80 mg PO DAILY [facility] Heparin Sodium (Porcine) (Heparin -) 5,000 unit SQ BID [facility] Last Admin: 06/20/17 10:03 Dose: Not Given Labetalol HCl (Normodyne -) 400 mg PO BID [facility] Last Admin: 06/20/17 09:53 Dose: 400 mg Meclizine HCl (Antivert -) 12.5 mg PO Q6H PRN PRN Reason: NAUSEA Minoxidil (Lonitin -) 7.5 mg PO DAILY [facility] Last Admin: 06/20/17 09:52 Dose: 7.5 mg Potassium Chloride (K-Dur -) 40 meq PO BID [facility] Last Admin: 06/19/17 21:49 Dose: 40 meq Spironolactone (Aldactone -) 50 mg PO BID [facility] Last Admin: 06/20/17 09:48 Dose: 50 mg Gen: NAD at rest Heart: RRR Lung: decreased breath sounds at the bases Abd: soft, nontender Ext: no edema Laboratory Results - last 24 hr 06/18/17 06/20/17 06/20/17 06:05 05:40 05:40 WBC 3.6 L RBC 2.46 L Hgb 7.3 L Hct 21.5 L MCV 87.4 MCH 29.8 MCHC 34.1 RDW 15.4 Plt Count 168 MPV 7.9 Sodium 138 Potassium 4.3 Chloride 106 Carbon Dioxide 25 Anion Gap 7 L BUN 38 H Creatinine 5.1 H Random Glucose 84 Calcium 8.6 Phosphorus 4.8 Magnesium 2.4 Free T3 2.2 A/P Hypertensive Urgency Hyperalosteronism Acute on CKD +Troponins likely from above Hypokalemia - titrate oral BP meds - Hold Lasix - PO as tolerated - DVT prophylaxis - Cardiac telemetry Dr Iraheta
--- NOTE | 2017-06-20 13:18 | PN ---
Progress Note (short form) - Note Progress Note: Chief Complaint: htn emergency History of Present Illness: pt reported that her doses of home bp meds were recently increased several weeks ago. ? if nausea/vomiting began before or after those increases in doses. yest resumed home bp med regimen. was first given labetalol (600mg) by itself-- soon after she was vomited and retching. so dose changed to 400 bid. remainder of meds given. pt states she had hospitalization (at [place]) for vomiting last year at some point, no meds stopped then and nausea improved on its own--mildly comes and goes since , given anti-emetic med regimen by doctor. few weeks ago dose of several meds increased, including labetalol. severe naus/vomiting middle of last week again. takes all her meds at the same time and then feels nauseated within short time after. denies sob, orthopnea, cp, palpitations Current Medications Acetaminophen (Tylenol -) 650 mg PO Q6H PRN PRN Reason: PAIN LEVEL 6-10 Amlodipine Besylate (Norvasc -) 10 mg PO DAILY [facility] Last Admin: 06/20/17 09:53 Dose: 10 mg Aspirin (Ecotrin -) 81 mg PO DAILY [facility] Last Admin: 06/20/17 09:49 Dose: 81 mg Atorvastatin Calcium (Lipitor -) 40 mg PO HS [facility] Last Admin: 06/19/17 21:50 Dose: 40 mg Clonidine HCl (Catapres Tts Patch -) 0.3 mg TD Mo@1000 [facility] Doxazosin Mesylate (Cardura -) 8 mg PO BID [facility] Last Admin: 06/20/17 09:51 Dose: 8 mg Furosemide (Lasix -) 80 mg PO DAILY [facility] Heparin Sodium (Porcine) (Heparin -) 5,000 unit SQ BID [facility] Last Admin: 06/20/17 10:03 Dose: Not Given Labetalol HCl (Normodyne -) 400 mg PO BID [facility] Last Admin: 06/20/17 09:53 Dose: 400 mg Meclizine HCl (Antivert -) 12.5 mg PO Q6H PRN PRN Reason: NAUSEA Minoxidil (Lonitin -) 7.5 mg PO DAILY [facility] Last Admin: 06/20/17 09:52 Dose: 7.5 mg Potassium Chloride (K-Dur -) 40 meq PO BID [facility] Last Admin: 06/19/17 21:49 Dose: 40 meq Spironolactone (Aldactone -) 50 mg PO BID [facility] Last Admin: 06/20/17 09:48 Dose: 50 mg - Objective Vital Signs: Vital Signs - 24 hr 06/19/17 06/19/17 06/19/17 15:50 18:30 20:00 Temperature 98.6 F Pulse Rate 76 76 74 Respiratory 18 18 20 Rate Blood Pressure 125/95 144/103 127/94 O2 Sat by Pulse Oximetry (%) 06/19/17 06/19/17 06/20/17 20:42 22:00 00:16 Temperature 98.2 F Pulse Rate 78 62 Respiratory 18 20 Rate Blood Pressure 136/97 130/86 O2 Sat by Pulse 97 Oximetry (%) 06/20/17 06/20/17 06/20/17 02:00 04:00 05:58 Temperature 98.4 F 98.2 F Pulse Rate 67 77 74 Respiratory 15 18 Rate Blood Pressure 136/106 143/109 144/102 O2 Sat by Pulse Oximetry (%) 06/20/17 06/20/17 06/20/17 07:16 08:00 10:00 Temperature Pulse Rate 78 78 Respiratory 18 18 Rate Blood Pressure 143/88 135/81 O2 Sat by Pulse 98 Oximetry (%) 06/20/17 11:55 Temperature Pulse Rate 76 Respiratory 18 Rate Blood Pressure 139/101 O2 Sat by Pulse Oximetry (%) Intake & Output 06/18/17 06/19/17 06/20/17 06/21/17 07:59 07:59 07:59 07:59 Intake Total 2500 1420 500 Output Total 301 Balance 2199 1420 500 Weight 170 lb 14.4 oz 169 lb 8 oz 164 lb 0.383 oz Constitutional: Yes: Well Nourished, No Distress Cardiovascular: Yes: Regular Rate and Rhythm, JVD, S1, S2. No: Gallop, Murmur Respiratory: Yes: Regular, CTA Bilaterally. No: Accessory Muscle Use, Rales, Wheezes Extremities: No: Cold Edema: No Neurological: Yes: Alert, Oriented Psychiatric: No: Agitated Labs: CBC, BMP 06/20/17 05:40 06/20/17 05:40 ekg: nsr, delayed r wave progression. non-specific t wave ab. prolonged qtc. no acute ischemic changes. tele: echo 06/2017: mild lve. 1+ conc lvh. mild dec lv sys fn. mild-mod lat wall HK. mod inferolateral wall HK. 1+ lae. 1+ ar, mod mr, nl aortic root size. small pericardial effusion (images reviewed by dr taylor: no regionality to LV hypokinesis--there is clearly global mild-moderate hypokinesis, EF 40-45%. moderate conc LVH. moderate MR) echo 03/2017: mod LVH (concentric); nl LVSF. nl RV. nl LA. mild AI/MR/TR. normal aortic root. small effusion cxr 06/2017: small bilateral pleural effusions with associated atelectasis. cardiomegaly. head ct: no acute pathology. chest CT 03/2017: Ascending aorta 4.1 cm. PA dilation (3.6 cm). Assessment/Plan 37 yo with h/o secondary HTN (hyperaldo) in [address] Luigi Mckay and hypertensive specialist Dr John ([facility]) who p/w nausea vomiting and noted to have hypertensive urgency/emergency, troponin elevation and madison. hypertensive emergency, known hyperaldosteronism - triggered by non-adherence to po meds due to naus and vomiting (not her prior high bp sx she says--has GI f/u at [place], with EGD scheduled - cardene drip started in ICU, BP responded well. - usual BP lowering protocol (avoid over-rapid lowering), based on mean BP - con't clonidine patch, transition back to home po regimen (including spirono 50 qd) - remains on nicardipine gtt, required KCL total 140meq yest for repletion - 06/17: incr'd spironolactone to 50 bid. - 06/18: resumed home po meds, stopped nicardipine gtt. ? labetalol 600mg caused nausea/vomiting--decr'd dose to 400 bid. - 06/19: bp remains moderately elevated. K stable (only required 40meq KCL yesterday). suspect her nausea may be med induced (started last year, controlled adequately with anti-emetic regimen, worsened last week due to recent increase in dose of multiple meds). however given she takes all meds at the same time, and doses of several were increased simultaneously recently, it is impossible to suspect one individual med--though of note she became acutely nauseated after po labetalol given yesterday. - continue lower dose labetalol (400 bid, vs 600 bid prior), with remainder of regimen unchanged--if nausea remains improved and bp adequate, rec discharge home on this regimen with f/u with dr john (HTN specialist) within 5-7 days post-discharge. if vomiting continues, will try reduce labetalol back to 300mg ( on this until few weeks ago) and possibly increase spironolactone to 75 bid. - has had inconclusive adrenal vein sampling with dr rome, no plans for surgery - pt advised to f/u with dr john after discharge and make plan (for ? additional prn clonidine patch) for next time she cannot tolerate po meds transiently if having GI upset - aggressive repletion of K acute syst/diast (mixed) CHF: - nl LVSF 04/02, with evidence of mild chf on CT chest at that time - very poor GFR limits diuretics dosing - currently no sx's at all, however small pleural and pericardial effusions on imaging, and suspected JVD present - remains completely asymptomatic, hence lasix was deferred (MADISON and severe hypokalemia) - 3: creat 4.4, back to her prior baseline. - 06/19: creat up (4.9), K stable. d/w renal: will try lasix 80 po qd here (on 20 qd at home), monitor creat daily VTach: - short run NSVT 06/19 tele - aggressive K and Mag repletion as doing - EF >40%, hence not high risk for ventricular arrhythmia (+) intermediate troponin elevation, atypical CP: - pt endorses chronic sx's of atypical CP when misses her HTN meds: ? sec to acute bp elevation, vs sec to retching/vomiting (this has been happening often for several weeks, as cause of missed meds--GI w/u ongoing as outpt) - flat, intermediate troponin elevation 03/2017 (0.2 range), likely due to LVH with uncontrolled BP. also ? chf at that time - initial trop here 0.5-->0.3. EKG without acute ischemic changes. - no anginal sx's (naus/vomiting are not new, seeing GI and has w/u scheduled - very likely troponins are related to acute HTN emergency-->increased LV myocardial wall tension (i.e. Type II OH). - doubt ACS clinically. - rec defer stress testing given risks of precipitating severe HTN emergency with exercise or dobutamine, and risks of breast irradiation in 37 yo female. - highly likely LV dysfunction is sec to acute HTN crisis. outpt f/u with cardio (dr mckay)--if LVEF remains down once BP is improved for 6-12 weeks, would rec ischemia evaluation at that time. - will hold asa and statin for now prolonged QT: - sec to K <3 - lytes repletion as doing - no VF on tele, cont to monitor - / rpt ECG with manual QTC improved (461 msec), i.e. WNL mild asc aorta dilation on 03/[address] - no significant enlargement on echo - no s/sx of acute aorta pathology here (see above re: atyp CP is non- cardiovascular sx) CKD vs MADISON component: - baseline creat 4.5. initially 5.1 here, now back to near-baseline - renal following. est time in pt exam, review of data, and formulation of mgmt plan of potentially life-threatening problems = 35 min
--- NOTE | 2017-06-20 13:54 | PN ---
Physical Exam: SUBJECTIVE: Pt's blood pressure over the past day has been improved on her PO regiment currently. Still remains elevated, however more controlled compared to previous day. No complaints reported by patient. Denies any headache, visual changes, dizziness, SOB, CP/discomfort, palpitation, back pain. Pt states she continues to void appropriate volumes for her and does not report and problems. Pt eager to go home today. OBJECTIVE: Vital Signs Period Temp Pulse Resp BP Sys/Li Pulse Ox Last 24 Hr 98.2 F-98.6 F 62-78 15-20 125-144/81-109 97-98 GENERAL: NAD, awake, alert, orientedx3 HEENT: EOMI, ORTEGA, No JVD, scleral anicteric LUNGS: CTA bilaterally, no wheezes, no crackles, no accessory muscle use. HEART: RRR, S1, S2 without murmur ABDOMEN: Soft, nontender, nondistended, normoactive bowel sounds, no guarding, no hepatomegaly EXTREMITIES: 2+ DP pulses, warm, well-perfused, no edema. PSYCH: Normal mood, normal affect. SKIN: Warm, dry, normal turgor, no rashes or lesions noted Laboratory Results - last 24 hr 06/18/17 06/20/17 06/20/17 06:05 05:40 05:40 WBC 3.6 L RBC 2.46 L Hgb 7.3 L Hct 21.5 L MCV 87.4 MCH 29.8 MCHC 34.1 RDW 15.4 Plt Count 168 MPV 7.9 Sodium 138 Potassium 4.3 Chloride 106 Carbon Dioxide 25 Anion Gap 7 L BUN 38 H Creatinine 5.1 H Random Glucose 84 Calcium 8.6 Phosphorus 4.8 Magnesium 2.4 Free T3 2.2 Active Medications Generic Name Dose Route Start Last Admin Trade Name Freq PRN Reason Stop Dose Admin Acetaminophen 650 mg 06/19/17 19:14 Tylenol - PO Q6H PRN PAIN LEVEL 6-10 Amlodipine Besylate 10 mg 06/20/17 10:00 06/20/17 09:53 Norvasc - PO 10 mg DAILY [facility] Administration Aspirin 81 mg 06/20/17 10:00 06/20/17 09:49 Ecotrin - PO 81 mg DAILY [facility] Administration Atorvastatin Calcium 40 mg 06/19/17 22:00 06/19/17 21:50 Lipitor - PO 40 mg HS [facility] Administration Clonidine HCl 0.3 mg 06/26/17 10:00 Catapres Tts Patch - TD Mo@1000 [facility] Doxazosin Mesylate 8 mg 06/19/17 22:00 06/20/17 09:51 Cardura - PO 8 mg BID [facility] Administration Furosemide 80 mg 06/20/17 10:00 Lasix - PO DAILY [facility] Heparin Sodium (Porcine) 5,000 unit 06/19/17 22:00 06/20/17 10:03 Heparin - SQ Not Given BID [facility] Labetalol HCl 400 mg 06/19/17 22:00 06/20/17 09:53 Normodyne - PO 400 mg BID [facility] Administration Meclizine HCl 12.5 mg 06/19/17 19:14 Antivert - PO Q6H PRN NAUSEA Minoxidil 7.5 mg 06/20/17 10:00 06/20/17 09:52 Lonitin - PO 7.5 mg DAILY [facility] Administration Potassium Chloride 40 meq 06/19/17 22:00 06/19/17 21:49 K-Dur - PO 40 meq BID [facility] Administration Spironolactone 50 mg 06/19/17 22:00 06/20/17 09:48 Aldactone - PO 50 mg BID [facility] Administration ASSESSMENT/PLAN: Neuro: Neurologically intact Resp: Not in respiratory distress Cardiovascular HTN emergency --Cardiology on board; recs noted --Continue Labetolol 400BID vs 600 if HTN controlled --Once HTN controlled re-assess EF and if LV function still diminished ischemic workup advised at that time --Follow with Dr. Vargas as an outpatient --Continue Norvasc 10mg PO qDaily --Continue Catapres 0.3mg Patch --Continue Cardura 8mg BID PO --Continue Minoxidil 12.5mg q6h PO Renal: Acute Kidney injury --Hyperaldosteronism noted in past medical history --Renal US showing R simple renal cyst --CT abd showing no adrenal masses currently; renal cyst yet again noted --Cr 5.2 today (increased from 4.9) yesterday --Nephrology on board --HOLD lasix dose today --Restart home Lasix dose upon discharge --F/u nephrology outpatient recommended --Pt refused option of dialysis Hematology: Acute normocytic anemia --Hgb decreased 7.3 today --No signs of bleeding currently; no melena or BRBPR; not currently menstrating --Iron studies as outpatient basis --Monitor H/H FEN: Fluids: Pt currently tolerating PO; avoid due to HTN Electrolyte abnormalities: Hypokalemia resolved; HOLD Kdur today due to aldactone and 4.2 lab today Nutrition: Sodium controlled diet PPX DVT - SCDs due to acute drop in Hgb Dispo: Transfer to tele Case discussed with Dr. Myrtle Francisco, DO - IM PGY-1 Visit type - Emergency Visit Emergency Visit: No - New Patient This patient is new to me today: No - Critical Care Critical Care patient: Yes Total Critical Care Time (in minutes): 35 Critical Care Statement: The care of this patient involved high complexity decision making to prevent further life threatening deterioration of the patient 's condition and/or to evaluate & treat vital organ system(s) failure or risk of failure.
--- NOTE | 2017-06-20 14:43 | PN ---
Teaching Attending Note Name of Resident: Sina Arthur ATTENDING PHYSICIAN STATEMENT I saw and evaluated the patient. I reviewed the resident's note and discussed the case with the resident. I agree with the resident's findings and plan as documented. SUBJECTIVE: Patient is feeling better, wants to go home, blood pressure is controlled now on oral agents. OBJECTIVE: Vital Signs Temperature 98.2 F 06/20/17 05:58 Pulse Rate 76 06/20/17 11:55 Respiratory Rate 18 06/20/17 11:55 Blood Pressure 139/101 06/20/17 11:55 O2 Sat by Pulse Oximetry (%) 98 06/20/17 07:16 CBCD WBC 3.6 K/mm3 (4.0-10.0) L 06/20/17 05:40 RBC 2.46 M/mm3 (3.60-5.2) L 06/20/17 05:40 Hgb 7.3 GM/dL (10.7-15.3) L 06/20/17 05:40 Hct 21.5 % (32.4-45.2) L 06/20/17 05:40 MCV 87.4 fl (80-96) 06/20/17 05:40 MCHC 34.1 g/dl (32.0-36.0) 06/20/17 05:40 RDW 15.4 % (11.6-15.6) 06/20/17 05:40 Plt Count 168 K/MM3 (134-434) 06/20/17 05:40 MPV 7.9 fl (7.5-11.1) 06/20/17 05:40 CMP Sodium 138 mmol/L (136-145) 06/20/17 05:40 Potassium 4.3 mmol/L (3.5-5.1) 06/20/17 05:40 Chloride 106 mmol/L (98-107) 06/20/17 05:40 Carbon Dioxide 25 mmol/L (21-32) 06/20/17 05:40 Anion Gap 7 (8-16) L 06/20/17 05:40 BUN 38 mg/dL (7-18) H 06/20/17 05:40 Creatinine 5.1 mg/dL (0.55-1.02) H 06/20/17 05:40 Creat Clearance w eGFR 9.86 (>60) 06/19/17 05:25 Random Glucose 84 mg/dL (74-106) 06/20/17 05:40 Calcium 8.6 mg/dL (8.5-10.1) 06/20/17 05:40 Total Bilirubin 0.5 mg/dL (0.2-1.0) D 06/19/17 05:25 AST 10 U/L (15-37) L 06/19/17 05:25 ALT 17 U/L (12-78) 06/19/17 05:25 Alkaline Phosphatase 52 U/L (45-117) 06/19/17 05:25 Total Protein 5.7 g/dl (6.4-8.2) L 06/19/17 05:25 Albumin 3.1 g/dl (3.4-5.0) L 06/19/17 05:25 CARDIAC ENZYMES Creatine Kinase 228 IU/L (26-192) H 06/16/17 08:30 Troponin I 0.31 ng/ml (0.00-0.05) H 06/16/17 21:05 Current Medications Generic Name Dose Route Start Last Admin Trade Name Freq PRN Reason Stop Dose Admin Acetaminophen 650 mg 06/19/17 19:14 Tylenol - PO Q6H PRN PAIN LEVEL 6-10 Amlodipine Besylate 10 mg 06/20/17 10:00 06/20/17 09:53 Norvasc - PO 10 mg DAILY [facility] Administration Aspirin 81 mg 06/20/17 10:00 06/20/17 09:49 Ecotrin - PO 81 mg DAILY [facility] Administration Atorvastatin Calcium 40 mg 06/19/17 22:00 06/19/17 21:50 Lipitor - PO 40 mg HS [facility] Administration Clonidine HCl 0.3 mg 06/26/17 10:00 Catapres Tts Patch - TD Mo@1000 [facility] Doxazosin Mesylate 8 mg 06/19/17 22:00 06/20/17 09:51 Cardura - PO 8 mg BID [facility] Administration Furosemide 80 mg 06/20/17 10:00 Lasix - PO DAILY [facility]PLAC[facility] Heparin Sodium (Porcine) 5,000 unit 06/19/17 22:00 06/20/17 10:03 Heparin - SQ Not Given BID REPLACED BY [facility] Labetalol HCl 400 mg 06/19/17 22:00 06/20/17 09:53 Normodyne - PO 400 mg BID [facility] Administration Meclizine HCl 12.5 mg 06/19/17 19:14 Antivert - PO Q6H PRN NAUSEA Minoxidil 7.5 mg 06/20/17 10:00 06/20/17 09:52 Lonitin - PO 7.5 mg DAILY [facility] Administration Potassium Chloride 40 meq 06/19/17 22:00 06/19/17 21:49 K-Dur - PO 40 meq BID [facility] Administration Spironolactone 50 mg 06/19/17 22:00 06/20/17 09:48 Aldactone - PO 50 mg BID [facility] Administration Home Medications Medication Instructions Recorded Amlodipine Besylate 10 mg PO DAILY 04/01/17 Labetalol HCl [Normodyne -] 600 mg PO BID 04/01/17 Clonidine Patch [Catapres Tts 0.3 mg TD WEEKLY 04/02/17 Patch -] Doxazosin Mesylate 16 mg PO DAILY 04/02/17 Minoxidil [Minoxidil -] 7.5 mg PO DAILY 04/02/17 Furosemide [Lasix] 20 mg PO DAILY 06/16/17 Aspirin Coated [Ecotrin -] 81 mg PO DAILY #30 tablet.ec 06/20/17 Atorvastatin Ca [Lipitor] 40 mg PO HS #30 tablet 06/20/17 Spironolactone [Aldactone -] 50 mg PO BID #60 tablet 06/20/17 PE: as per resident's note ekg: nsr, delayed r wave progression. non-specific t wave ab. prolonged qtc. no acute ischemic changes. tele: SR echo 06/2017: mild lve. 1+ conc lvh. mild dec lv sys fn. mild-mod lat wall HK. mod inferolateral wall HK. 1+ lae. 1+ ar, mod mr, nl aortic root size. small pericardial effusion echo 03/2017: mod LVH (concentric); nl LVSF. nl RV. nl LA. mild AI/MR/TR. normal aortic root. small effusion cxr 06/2017: small bilateral pleural effusions with associated atelectasis. cardiomegaly. head ct: no acute pathology. chest CT 03/2017: Mixed consolidative and groundglass opacity in RUL c/w pna. Small bibasilar layering pleural effusions. Ascending aorta 4.1 cm. PA dilation (3.6 cm). Liver findings noted. ASSESSMENT AND PLAN: This is a 37 year old female with a significant PMH of uncontrolled HTN, hyperaldosteronism, CKD who presented to the hospital complaining of chest pain and headache that started 2 days ago. She is admitted for uncontrolled BP, elevated troponons and MADISON on CKD. # Hypertensive emergency: better controlled today on po meds now, labetolol, lasix, cardura, norvasc , spironolactone , off Nicardine drip , started on po meds.continue. will discharge the patient home on these po meds. # Elevated Troponin (also was noted on 03/2017) , demand Ischemia most likely due to Hypertensive Emergency. EKG No acute ischemic changes chest pain resolved. Stress test as an outpatient , discussed with Dr. Mendenhall. will follow up with her own cardiologsit in [facility] #MADISON on CKD: last admission 4.1-4.5, today 5.1, US kidney ordered, nephro consult on the case , patient is refusing dialysis will follow up eith with Dr. Marquez or her [facility] guard Dr Barbour. was suggested for the patient to have a fistula, patient is refused. Aslo dose of lasix reduced since kidney function is 5.1 today #Acute Headache due to hypertensive emergency improved post better controlling BP , CT of the head negative for acute pathology # Hyperaldosteronism: Potassium repeleted. and increased to 100mg daily as per hospital social worker suggestion.Potassium is 3.6 today and will continue with Kdur 40meq vs bid. According to the pt she has adrenal mass and had workup done but her results were nonconclusive , no intervention was done as per patient # Anemia: hgb of 9.0--> 7.7 most likely due to kidney failure. # Prolonged QT ; repleted potassium Follow with nephro follow with cardio for outpatient stress test follow with PMD for close BP control decreased dose of Lasix to 20mg daily decreased potassium to kdur 40 from 80 but increased Spironolactone to 50mg po bid , potassium is stable now. discharged patient home
--- NOTE | 2017-06-20 15:13 | PN ---
Progress Note, Physician History of Present Illness: Pt seen and examined at bedside. She is awake and alert. She is eager to go home. She denies chest pain or shortness of breath. SHe refused lasix this morning. - Current Medication List Current Medications: Active Medications Acetaminophen (Tylenol -) 650 mg PO Q6H PRN PRN Reason: PAIN LEVEL 6-10 Amlodipine Besylate (Norvasc -) 10 mg PO DAILY [facility] Last Admin: 06/20/17 09:53 Dose: 10 mg Aspirin (Ecotrin -) 81 mg PO DAILY [facility] Last Admin: 06/20/17 09:49 Dose: 81 mg Atorvastatin Calcium (Lipitor -) 40 mg PO HS [facility] Last Admin: 06/19/17 21:50 Dose: 40 mg Clonidine HCl (Catapres Tts Patch -) 0.3 mg TD Mo@1000 [facility] Doxazosin Mesylate (Cardura -) 8 mg PO BID [facility] Last Admin: 06/20/17 09:51 Dose: 8 mg Furosemide (Lasix -) 80 mg PO DAILY [facility] Heparin Sodium (Porcine) (Heparin -) 5,000 unit SQ BID [facility] Last Admin: 06/20/17 10:03 Dose: Not Given Labetalol HCl (Normodyne -) 400 mg PO BID [facility] Last Admin: 06/20/17 09:53 Dose: 400 mg Meclizine HCl (Antivert -) 12.5 mg PO Q6H PRN PRN Reason: NAUSEA Minoxidil (Lonitin -) 7.5 mg PO DAILY [facility] Last Admin: 06/20/17 09:52 Dose: 7.5 mg Potassium Chloride (K-Dur -) 40 meq PO BID [facility] Last Admin: 06/19/17 21:49 Dose: 40 meq Spironolactone (Aldactone -) 50 mg PO BID [facility] Last Admin: 06/20/17 09:48 Dose: 50 mg - Objective Vital Signs: Vital Signs Temperature 98.2 F 06/20/17 05:58 Pulse Rate 76 06/20/17 11:55 Respiratory Rate 18 06/20/17 11:55 Blood Pressure 139/101 06/20/17 11:55 O2 Sat by Pulse Oximetry (%) 98 06/20/17 07:16 Constitutional: Yes: Calm Eyes: Yes: Conjunctiva Clear HENT: Yes: Atraumatic Neck: Yes: Supple Cardiovascular: Yes: S1, S2 Respiratory: Yes: CTA Bilaterally Gastrointestinal: Yes: Soft Genitourinary: Yes: WNL Musculoskeletal: Yes: WNL Edema: No Integumentary: Yes: Tattoos Neurological: Yes: Oriented Psychiatric: Yes: Oriented Labs: CBC, BMP 06/20/17 05:40 06/20/17 05:40 - ....Imaging Chest X-ray: Report Reviewed Problem List - Problems (1) CKD (chronic kidney disease) Code(s): N18.9 - CHRONIC KIDNEY DISEASE, UNSPECIFIED (2) Hyperaldosteronism Code(s): E26.9 - HYPERALDOSTERONISM, UNSPECIFIED (3) Hypokalemia Code(s): E87.6 - HYPOKALEMIA Assessment/Plan Current Medications Generic Name Dose Route Start Last Admin Trade Name Freq PRN Reason Stop Dose Admin Acetaminophen 650 mg 06/19/17 19:14 Tylenol - PO Q6H PRN PAIN LEVEL 6-10 Amlodipine Besylate 10 mg 06/20/17 10:00 06/20/17 09:53 Norvasc - PO 10 mg DAILY [facility] Administration Aspirin 81 mg 06/20/17 10:00 06/20/17 09:49 Ecotrin - PO 81 mg DAILY [facility] Administration Atorvastatin Calcium 40 mg 06/19/17 22:00 06/19/17 21:50 Lipitor - PO 40 mg HS [facility] Administration Clonidine HCl 0.3 mg 06/26/17 10:00 Catapres Tts Patch - TD Mo@1000 [facility] Doxazosin Mesylate 8 mg 06/19/17 22:00 06/20/17 09:51 Cardura - PO 8 mg BID [facility] Administration Furosemide 80 mg 06/20/17 10:00 Lasix - PO DAILY [facility] Heparin Sodium (Porcine) 5,000 unit 06/19/17 22:00 06/20/17 10:03 Heparin - SQ Not Given BID [facility] Labetalol HCl 400 mg 06/19/17 22:00 06/20/17 09:53 Normodyne - PO 400 mg BID [facility] Administration Meclizine HCl 12.5 mg 06/19/17 19:14 Antivert - PO Q6H PRN NAUSEA Minoxidil 7.5 mg 06/20/17 10:00 06/20/17 09:52 Lonitin - PO 7.5 mg DAILY [facility] Administration Potassium Chloride 40 meq 06/19/17 22:00 06/19/17 21:49 K-Dur - PO 40 meq BID [facility] Administration Spironolactone 50 mg 06/19/17 22:00 06/20/17 09:48 Aldactone - PO 50 mg BID [facility] Administration Selected Entries 06/20/17 10:00 Blood Pressure 135/81 Impression 1. Conn/hyperaldo 2. htn emergency 3. CKD 4. MADISON 5. HTN poorly controlled 6. non compliance 7. vomiting Plan - can decrease dose of lasix - renal function is worsening and this was discussed with pt - we discussed compliance at length - will need close outpt follow up - will need to monitor potassium very closely - renal function is worsening, discussed preparation for HD however she is refusing a fistula - con to monitor BP, asked pt to create a blood pressure log and bring it with her - discussed with medical team - will follow Dr Sunshine
[2017-06-20 15:21] VITALS: BP 115/75; TEMP 98
--- NOTE | 2017-06-20 15:54 | DS ---
Physical Exam: SUBJECTIVE: Patient seen and examined Patient resting in bed comfortably NAD, no acute events overnight. Afebrile, hemodynamically stable systolic BP 115-135. No complaints at this time. States that she wants to go home, agreeable to follow up with Dr Sunshine. Understands medication changes and plan for follow up. OBJECTIVE: Vital Signs Period Temp Pulse Resp BP Sys/Li Pulse Ox Last 24 Hr 98 F-98.4 F 62-78 15-20 115-144/75-109 97-98 PHYSICAL EXAM GENERAL: The patient is awake, alert, and fully oriented, in no acute distress. HEAD: Normal with no signs of trauma. EYES: PERRL, extraocular movements intact, sclera anicteric, conjunctiva clear. No ptosis. ENT: Ears normal, nares patent, oropharynx clear without exudates, moist mucous membranes. NECK: Trachea midline, full range of motion, supple. LUNGS: Breath sounds equal, clear to auscultation bilaterally, no wheezes, no crackles, no accessory muscle use. HEART: Regular rate and rhythm, S1, S2 without murmur, rub or gallop. ABDOMEN: Soft, nontender, nondistended, normoactive bowel sounds, no guarding, no rebound, no hepatosplenomegaly, no masses. EXTREMITIES: 2+ pulses, warm, well-perfused, no edema. NEUROLOGICAL: Cranial nerves II through XII grossly intact. Normal speech, gait not observed. PSYCH: Normal mood, normal affect. SKIN: Warm, dry, normal turgor, no rashes or lesions noted LABS Laboratory Results - last 24 hr 06/18/17 06/20/17 06/20/17 06:05 05:40 05:40 WBC 3.6 L RBC 2.46 L Hgb 7.3 L Hct 21.5 L MCV 87.4 MCH 29.8 MCHC 34.1 RDW 15.4 Plt Count 168 MPV 7.9 Sodium 138 Potassium 4.3 Chloride 106 Carbon Dioxide 25 Anion Gap 7 L BUN 38 H Creatinine 5.1 H Random Glucose 84 Calcium 8.6 Phosphorus 4.8 Magnesium 2.4 Free T3 2.2 HOSPITAL COURSE: Date of Admission:06/16/17 This is a 37 year old female with a significant PMH of uncontrolled HTN due to hyperaldosteronism and hypertension related CKD, who presented to the hospital complaining of chest pain, h/a, n/v. Patient has a history of multiople admisisons for HTN urgencies and medication noncompliance. On admission she was found to have BP 143/105 with acutely worsened renal function creat 5.1 ( baseline 4.4). She was admitted for Hypertensive emergency and MADISON and initially placed in ICU on Cardene gtt. She was also diagnosed with acute CHF due to HTN crisis (mildly reduced LV EF of TTE). During hospital stay she was evaluated by cardiology and nephrology. Cardio recommended lowering labetalol to 400 bid from 600 bid and to reduce to 300 bid + increase spironolactone to 75 bid if vomiting resumed. Cardio also recommended f/u with Dr Vargas (HTN specialist) within 1w of dc. Holding ASA and statin was also recommended, as well as stress test if LV EF remained down after repeat TTE in 6-12 weeks. Renal recommended prompt f/u for AVF/[employer] planning and asked that the patient eb discharged on her old home meds. Patient was sent home on home meds, to be adjusted as recommended by cardio above on outpatient basis. She was dcd on KCL supplements 20 bid. Date of Discharge: 06/20/17 Minutes to complete discharge: 45 Discharge Summary Reason For Visit: NSTEMI,MYOCARDIAL INFARCTION Condition: Stable - Instructions Diet, Activity, Other Instructions: You came to the hospital with nausea, vomiting and chest pain due to hypertensive emergency. WE found worsening heart and kidney function in the labs work as well and had Nephrology and cardiology specialists evaluate you. *Cardiology recommends that you take medications as prescribed and do not skip doses or you can injure your heart and kidneys *Continue aspirin 81mg once a day *Continue atorvastatin 40mg once a day *Continue labetalol 600 twice a day *Continue spironolactone 50mg twice a day (This dose was increased) *Continue using clonidine patch weekly *Continue lasix 20mg once a day *Continue Doxazosin 8mg at nighttime *Take Potassium pills 20 mg twice a day *Make sure to get your potassium checked in one week. REFERRALS *Make an appointment with Dr. Sunshine (kidney specialist) for next Monday *Follow up with your data consultant Dr Dunham NEXT WEEK,(because you were found to have an acute heart failure because of the high blood pressure) he will check a heart Echocardiogram in 6-12 weeks and will possibly recommend a stress test. Please return to ER if symptoms worsen Referrals: Shauna Brewster MD [Staff Physician] - Stoney Sunshine MD [Staff Physician] - Disposition: HOME - Home Medications Comprehensive Discharge Medication List: Ambulatory Orders Amlodipine Besylate 10 mg PO DAILY 04/01/17 Labetalol HCl [Normodyne -] 600 mg PO BID 04/01/17 Clonidine Patch [Catapres Tts Patch -] 0.3 mg TD WEEKLY 04/02/17 Doxazosin Mesylate 16 mg PO DAILY 04/02/17 Minoxidil [Minoxidil -] 7.5 mg PO DAILY 04/02/17 Furosemide [Lasix] 20 mg PO DAILY 06/16/17 Aspirin Coated [Ecotrin -] 81 mg PO DAILY #30 tablet.ec 06/20/17 Atorvastatin Ca [Lipitor] 40 mg PO HS #30 tablet 06/20/17 Potassium Chloride 20 meq PO BID #60 tablet.er 06/20/17 Spironolactone [Aldactone -] 50 mg PO BID #60 tablet 06/20/17 Problem List - Problems (1) Acute renal failure Code(s): N17.9 - ACUTE KIDNEY FAILURE, UNSPECIFIED (2) Adrenal adenoma Code(s): D35.00 - BENIGN NEOPLASM OF UNSPECIFIED ADRENAL GLAND (3) CKD (chronic kidney disease) Code(s): N18.9 - CHRONIC KIDNEY DISEASE, UNSPECIFIED (4) Heart failure Code(s): I50.9 - HEART FAILURE, UNSPECIFIED (5) Hyperaldosteronism Code(s): E26.9 - HYPERALDOSTERONISM, UNSPECIFIED (6) Hypertensive cardiomyopathy Code(s): I11.9 - HYPERTENSIVE HEART DISEASE WITHOUT HEART FAILURE; I43 - CARDIOMYOPATHY IN DISEASES CLASSIFIED ELSEWHERE (7) Hypertensive emergency Code(s): I16.1 - HYPERTENSIVE EMERGENCY (8) Hypokalemia Code(s): E87.6 - HYPOKALEMIA (9) NSTEMI (non-ST elevated myocardial infarction) Code(s): I21.4 - NON-ST ELEVATION (NSTEMI) MYOCARDIAL INFARCTION (10) Nausea & vomiting Code(s): R11.2 - NAUSEA WITH VOMITING, UNSPECIFIED (11) Hypoaldosteronism Code(s): E27.40 - UNSPECIFIED ADRENOCORTICAL INSUFFICIENCY This patient is new to me today: No Emergency Visit: Yes ED Registration Date: 06/16/17 Care time: The patient presented to the Emergency Department on the above date and was hospitalized for further evaluation of their emergent condition. Critical Care patient: Yes Total Critical Care Time (in minutes): 45 Critical Care Statement: The care of this patient involved high complexity decision making to prevent further life threatening deterioration of the patient 's condition and/or to evaluate & treat vital organ system(s) failure or risk of failure. - Discharge Referral Referred to [facility] No
--- NOTE | 2017-06-22 15:08 | EKG ---
Test Reason : Blood Pressure : / mmHG Vent. Rate : 090 BPM Atrial Rate : 090 BPM P-R Int : 182 ms QRS Dur : 106 ms QT Int : 406 ms P-R-T Axes : 062 009 117 degrees QTc Int : 496 ms NORMAL SINUS RHYTHM T WAVE ABNORMALITY, CONSIDER LATERAL ISCHEMIA PROLONGED QT ABNORMAL ECG WHEN COMPARED WITH ECG OF 16-JUN-2017 08:49, QT HAS SHORTENED Confirmed by LEONEL ZHU, LAQUITA ([id number]) on 06/22/2017 3:07:50 PM Referred By: Confirmed By:LAQUITA CASTANEDA MD
[2017-06-26] MEDS ORDERED: cloNIDine-TTS 0.3 MG /24 HRS PATCH.TDWK TD SCH (10:00)
== END 2017-06-20 15:46 | disposition home or self-care (01) | DRG 468 ==
LOC: JER 07:05 → JERBED 10:49 → OBSVTOIN 10:49 → JICU 18:20
PROVIDERS: ADMIT Internal Medicine; ATTEND Internal Medicine
DX: I12.9 Hypertensive chronic kidney disease with stage 1 through stage 4 chronic kidney disease, or unspecified chronic kidney disease (principal); N17.9 Acute kidney failure, unspecified; N18.9 Chronic kidney disease, unspecified; E87.6 Hypokalemia; D64.9 Anemia, unspecified; E26.9 Hyperaldosteronism, unspecified; I16.1 Hypertensive emergency; R51 Headache; I13.0 Hypertensive heart and chronic kidney disease with heart failure and stage 1 through stage 4 chronic kidney disease, or unspecified chronic kidney disease; I50.41 Acute combined systolic (congestive) and diastolic (congestive) heart failure; I47.2 Ventricular tachycardia; R11.2 Nausea with vomiting, unspecified; R07.9 Chest pain, unspecified; Z91.14 Patient's other noncompliance with medication regimen
CPT/HCPCS: 36415; 70450-TC; 71045-TC-FY; 74150-TC; 76775-TC; 80048; 80053; 80061; 81003; 81015; 82436; 82550; 82553; 82570; 82728; 83540; 83550; 83721; 83735; 83880; 84100; 84133; 84156; 84300; 84439; 84443; 84466; 84481; 84484; 84703; 85025; 85027; 93005; 93010; 93306-TC; 99285-25; J1644

== ENCOUNTER 2017-10-21 00:40 | Inpatient (IN) | payer OTHER ==
[2017-10-21 01:02] VITALS: BMI 20.9
--- NOTE | 2017-10-21 01:43 | PDOC ---
Attending Attestation - ED Attending Attestation I have performed the following: I have examined & evaluated the patient, The case was reviewed & discussed with the resident, I agree w/resident's findings & plan - HPI HPI: 10/21/17 02:38 The patient is a 37 year old female with a significant past medical history of HTN, NSTEMI (06/2017) hyperaldosteronism who presents to the emergency department for evaluation of chest pain. The patient reports moderate chest pain radiating to her left shoulder while driving back to [place] from [place] last night. She states she stopped multiple times during her trip to walk around. She also reports moderate diffuse abdominal pain and a 2 week history of constipation. Pt reports associated symptoms of a 1 day history of fever, cough, and shortness of breath. The patient also reports nausea without vomiting. The patient reports a decrease in appetite secondary to abdominal pain.She notes her ankles are much more swollen than baseline. Pt states she took miralax with no alleviation. Of note, [facility], but states she received no help, prompting her to visit the emergency department for further evaluation. As per medical records, the patient was diagnosed with a MN 5 days ago. The patient denies headache, dizziness, chills, vomiting, and diarrhea. Denies urinary incontinence, frequency, urgency, hematuria, and dysuria. Denies sick contact and immobilization. Allergies: NKDA Social History: No reported alcohol, cigarette, or drug use. Surgical History: Hysterectomy - Physicial Exam PE: GENERAL: Awake, alert, and fully oriented, in no acute distress HEAD: No signs of trauma EYES: PERRLA, EOMI, sclera anicteric, conjunctiva clear ENT: Auricles normal inspection, hearing grossly normal, nares patent, oropharynx clear without exudates. Moist mucosa NECK: Normal ROM, supple. LUNGS: Breath sounds equal, clear to auscultation bilaterally. No wheezes, and no crackles HEART: Regular rate and rhythm, normal S1 and S2, no murmurs, rubs or gallops ABDOMEN: (+)Hyperactive high pitched bowel sounds. Soft, nontender, normoactive bowel sounds. No guarding, no rebound. No masses EXTREMITIES: (+)2+ pitting edema up to mid upper calves, otherwise normal. NEUROLOGICAL: Cranial nerves II through XII grossly intact. Normal speech, normal gait SKIN: Warm, Dry, normal turgor, no rashes or lesions noted. <Avani Reynolds - Last Filed: 10/21/17 02:38> - Resident Resident Name: Bobo Crowe - ED Attending Attestation I have performed the following: I have examined & evaluated the patient, The case was reviewed & discussed with the resident, I agree w/resident's findings & plan - Medical Decision Making 10/21/17 03:24 Patient Name: JAIDEN STEVENS THIS IS A PRELIMINARY REPORT FROM [facility] DATE OF SERVICE: 2017-10-21 02:42:48 IMAGES: [id number] EXAM: CT abdomen/pelvis without contrast HISTORY: Rule out ileus or obstruction COMPARISON: None. FINDINGS: There are small bilateral pleural effusions. There is mild atelectasis in the lower lobes and lingula. There is cardiomegaly. Mild pericardial effusion noted. There is no free air in the abdomen. There is hepatomegaly. Scattered cystic findings are noted in the liver of questionable significance. Mild free fluid is noted in the peritoneal cavity and dependent portion of the pelvis. There is no hydronephrosis. There is no ureteral dilatation. There are no renal or ureteral calculi seen. There are no obvious gallstones. There is a moderate amount of stool noted in the colon. There is no evidence of intestinal obstruction. The visualized portion of the appendix is within normal limits in size.. Urinary bladder is normal in dimension. There are no bladder calculi. Individualized dose optimization techniques were used for this CT. THIS DOCUMENT HAS BEEN ELECTRONICALLY SIGNED 10/21/17 03:26 Pt has a fever. Unclear where the source of the fever is. Pt has constipation x 2 weeks and we are worried about obstruction. No obstruction seen on CT scan. Pt has FF in the abd; unclear origin. Surg consult requested for tomorrow. Pt has cough, pt has patchy pulm effusions. Unclear if she has a concomitant pneumonia. She will be treated with a dose of abx. Pt has hypo K due to her hypoaldosteronism and she has poor control of her HTN. 10/21/17 03:29 Troponin is elevated, however her BUN and Cr are elevated. 10/21/17 19:41 Pt admitted for further care. Hospitalists aware. <Nancy Rutledge - Last Filed: 10/21/17 19:41> Heart Score/ECG Review - ECG Impressions Comment:: ECG reviewed by Dr. Rutledge at 1: 39. Impression: Normal sinus rhythm at [address] interval 166 ms QRS duration 102 ms QT/QTc 478/537 ms P-R-T axes 47 -10 114 <Avani Reynolds - Last Filed: 10/21/17 02:38> Attestations - Attestations Documentation prepared by Avani Reynolds, acting as anesthesiology medical doctor for Nancy Rutledge MD. <Avani Reynolds - Last Filed: 10/21/17 02:38>
[2017-10-21 01:45] LABS: BASO % 0.2 % (0-2.0); EOS % 0.5 % (0-4.5); LYMPH % 2.9 % (8-40); MCH 29.6 pg (25.7-33.7); MEAN CELL VOLUME 92.3 fl (80-96); MEAN PLT VOLUME 8.5 fl (7.5-11.1); MONO % 4.9 % (3.8-10.2); NEUT % 91.5 % (42.8-82.8); PLATELET COUNT 176 K/MM3 (134-434); RBC 2.38 M/mm3 (3.60-5.2); RDW 15.4 % (11.6-15.6); WHITE BLOOD COUNT 11.6 K/mm3 (4.0-10.0)
[2017-10-21] MEDS ORDERED: ACETAMINOPHEN 1000 MG/100 ML VIAL (NON FORMULARY) IVPB ONE (01:45)
[2017-10-21] MEDS ORDERED: MAGNESIUM SULF 50% (8.12 MEQ/2 ML-1 GM VIAL) IVPB ONE (01:46)
[2017-10-21] MEDS ORDERED: MAGNESIUM 1GM/D5W - 2 GM/200 ML IVPB IVPB ONE (01:52)
[2017-10-21] MEDS ORDERED: ACETAMINOPHEN INJECTION 100 ML IVPB ONE (01:52)
[2017-10-21] MEDS ORDERED: morphine CARPU-JECT 2 MG/1 ML DISP.SYRIN IVPUSH ONE (02:00)
[2017-10-21] MEDS ORDERED: MORPHINE SULFATE 2 MG/ML VIAL ONE ×2 (02:00→04:40)
[2017-10-21 02:02] LABS: ALBUMIN 2.3 g/dl (3.4-5.0); ANION GAP 11 (8-16); BILIRUBIN,TOTAL 0.5 mg/dL (0.2-1.0); BLOOD UREA NITROGEN 49 mg/dL (7-18); CALCIUM 8.4 mg/dL (8.5-10.1); CHLORIDE 97 mmol/L (98-107); CO2 27 mmol/L (21-32); CREATININE 4.9 mg/dL (0.55-1.02); GLUCOSE,RANDOM 139 mg/dL (74-106); SGOT/AST 22 U/L (15-37); SGPT/ALT 57 U/L (12-78); SODIUM 135 mmol/L (136-145); TOT PROT 5.6 g/dl (6.4-8.2)
--- NOTE | 2017-10-21 02:14 | PDOC ---
History of Present Illness - General Chief Complaint: Chest Pain Stated Complaint: CHEST PAIN Time Seen by Provider: 10/21/17 00:47 History Source: Patient Exam Limitations: No Limitations - History of Present Illness Initial Comments: 10/21/17 02:24 This is a 37 year old female with pmhx of hyperaldosteronismn Conn syndrom, HTN , CKD who presented to the ED with fever, cough, sob, epigastric abdominal pain , nausea, chest pain radiating to the left shoulder. Diffuse abdominal pain, "no bm in two weeks" Of note, the patient was admitted for similar symptoms in June for NSTEMI. PT has hx of being non compliant. Past History - Past Medical History Allergies/Adverse Reactions: Allergies Allergy/AdvReac Type Severity Reaction Status Date / Time No Known Allergies Allergy Verified 10/21/17 00:51 Home Medications: Ambulatory Orders Labetalol HCl [Normodyne -] 600 mg PO BID 04/01/17 Clonidine Patch [Catapres Tts Patch -] 0.3 mg TD WEEKLY 04/02/17 Doxazosin Mesylate 16 mg PO DAILY 04/02/17 Atorvastatin Ca [Lipitor] 40 mg PO HS #30 tablet 06/20/17 Furosemide [Lasix] 80 mg PO DAILY 10/13/17 Hydralazine HCl 50 mg PO BID 10/13/17 Nifedipine [Procardia Xl] 60 mg PO BID 10/13/17 Spironolactone [Aldactone -] 100 mg PO DAILY 10/13/17 Anemia: No COPD: No Disorders: Yes (CHRONIC RENAL DISEASE) HTN: Yes - Immunization History Immunization Up to Date: Yes - Suicide/Smoking/Psychosocial Hx Smoking History: Never smoked Have you smoked in the past 12 months: No If you are a former smoker, when did you quit?: january Information on smoking cessation initiated: No Hx Alcohol Use: No Drug/Substance Use Hx: No Substance Use Type: None Hx Substance Use Treatment: No Review of Systems - Review of Systems Able to Perform ROS?: Yes Is the patient limited Uzbek proficient: No Constitutional: Yes: Chills, Fever HEENTM: No: Symptoms Reported Respiratory: Yes: Cough, Shortness of Breath Cardiac (ROS): No: Symptoms Reported ABD/GI: No: Symptoms Reported : No: Symptoms Reported Musculoskeletal: No: Symptoms Reported Integumentary: No: Symptoms Reported Neurological: No: Symptoms reported All Other Systems: Reviewed and Negative *Physical Exam - Vital Signs Last Vital Signs Temp Pulse Resp BP Pulse Ox 101.0 F H 76 20 184/118 100 10/21/17 00:51 10/21/17 00:51 10/21/17 00:51 10/21/17 00:51 10/21/17 00:51 - Physical Exam General Appearance: Yes: Nourished, Appropriately Dressed, Mild Distress HEENT: positive: EOMI, BENEDICT, Normal ENT Inspection Respiratory/Chest: positive: Lungs Clear, Normal Breath Sounds. negative: Chest Tender Cardiovascular: positive: Regular Rhythm, Regular Rate, S1, S2 Gastrointestinal/Abdominal: positive: Normal Bowel Sounds, Flat, Soft. negative : Tender Musculoskeletal: positive: Normal Inspection. negative: CVA Tenderness Integumentary: positive: Normal Color, Dry, Warm Neurologic: positive: Fully Oriented, Alert, Normal Mood/Affect, Normal Response ED Treatment Course - LABORATORY CBC & Chemistry Diagram: 10/21/17 01:38 10/21/17 01:38 - ADDITIONAL ORDERS Additional order review: 10/21/17 01:38 RBC 2.38 L MCV 92.3 MCHC 32.0 RDW 15.4 MPV 8.5 Neutrophils % 91.5 H Lymphocytes % 2.9 L D Monocytes % 4.9 Eosinophils % 0.5 Basophils % 0.2 - RADIOLOGY Radiology Studies Ordered: Category Date Time Status CHEST PA & LAT [RAD] Stat Radiology 10/21/17 01:35 Ordered - Medications Given in the ED: ED Medications Discontinued Medications Generic Name Dose Route Start Last Admin Trade Name Freq PRN Reason Stop Dose Admin Acetaminophen 1,000 mg 10/21/17 01:45 10/21/17 01:55 Ofirmev Injection - IVPB 10/21/17 01:46 1,000 mg ONCE ONE Administration Magnesium Sulfate 2 gm 10/21/17 01:46 10/21/17 02:05 Magnesium Sulfate IVPB 10/21/17 01:47 2 gm ONCE ONE Administration Morphine Sulfate 2 mg 10/21/17 02:00 10/21/17 02:05 Morphine Injection - IVPUSH 10/21/17 02:01 2 mg ONCE ONE Administration Medical Decision Making - Medical Decision Making 10/21/17 03:25 labs, CT abdomen Chest xray. Patient started on abx for lower left lobe pneumonia. Hypokalemia secondary to hyperaldosteronism. 10/21/17 03:39 Small bilateral pleural effusion, mild atelectasis in lower lobers and lingula. Cardiomegaly with mild pericardial effusion noted. No free air in abdomen. There is hepatomegaly, scattered cystic findings noted in the liver. moderate amount of stool in colon. No evidence of SBO. . Will admit to Telemetry under hospitalist service. *DC/Admit/Observation/Transfer Diagnosis at time of Disposition: Acute on chronic diastolic CHF (congestive heart failure) - Discharge Dispostion Decision to Admit order: Yes - Referrals Referrals: ON STAFF,NOT [Primary Care Provider] - - Patient Instructions - Post Discharge Activity
[2017-10-21 02:18] LABS: ALK PHOS 163 U/L (45-117)
[2017-10-21] MEDS ORDERED: LABETALOL HCL 5 MG/1 ML (100MG/20 ML VIAL) IVPUSH ONE ×2 (02:31→03:34)
[2017-10-21 02:55] LABS: ACANTHOCYTES 0; ANISOCYTOSIS 0; HELMET CELLS 0; HOWELL-JOLLY BODIES 0; MACROCYTOSIS 0; OVALOCYTE 0; PLATELET ESTIMATE NORMAL; ROULEAU 0; SICKELED CELLS 0; TARGET CELLS 0; TEAR DROP CELLS 0; TOXIC GRANULATION 0
[2017-10-21] MEDS ORDERED: AZITHROMYCIN IVPB 500 MG in DEXTROSE 5%-WATER - 250 ML IVPB ONE (02:56)
[2017-10-21 03:00] LABS: INR 1.29 (0.82-1.09); PROTHROMBIN TIME (PATIENT) 14.6 SEC (9.7-13.0)
[2017-10-21 03:02] LABS: ACTIVATED PTT 32.4 SECONDS (25.2-36.5)
[2017-10-21] MEDS ORDERED: AZITHROMYCIN IVPB 250 ML IVPB ONE (03:10)
[2017-10-21] MEDS ORDERED: cefTRIAXone SODIUM 1 GM VIAL ONE (03:10)
[2017-10-21] MEDS ORDERED: POTASSIUM CHLORIDE TABS 20 MEQ TABLET.ER (FP) PO ONE (04:16)
--- NOTE | 2017-10-21 04:16 | HP ---
CHIEF COMPLAINT: chest pain PCP: [facility] HISTORY OF PRESENT ILLNESS: 37 year old female with multiple comorbidities (conn syndrome, CKD, uncontrolled HTN, medication noncompliance) presents to the hospital for 1 day hx of lower extremity edema, left sided chest pain, shortness of breath and abdominal pain. She reports that she was driving yesterday when she noticed her legs begin to swell bilaterally. States that that evening, she felt fatigued and started to have a productive cough with a subjective fever. She reports that this morning, she started to have left sided chest pain radiating to the left shoulder associated with nausea but no vomiting. Additionally says that she has not had a bowel movement in several days and has some epigastric abdominal pain. ER course was notable for: (1) Ceftriaxone/Azithromycin given (2) K 3.0 (3) Hgb 7 (4) EKG NSR rate 76, LVH, prolonged QT at 537 (greater than previous ekg when Qtc was 474. (5) Cre 4.9 (6) Temp 101 Recent Travel: denies PAST MEDICAL HISTORY: as stated above PAST SURGICAL HISTORY: Social History: Smoking: former 20 year pack year hx Alcohol: denies Drugs: denies Allergies No Known Allergies Allergy (Verified 10/21/17 00:51) HOME MEDICATIONS: Home Medications Medication Instructions Recorded Labetalol HCl [Normodyne -] 600 mg PO BID 04/01/17 Clonidine Patch [Catapres Tts 0.3 mg TD WEEKLY 04/02/17 Patch -] Doxazosin Mesylate 16 mg PO DAILY 04/02/17 Atorvastatin Ca [Lipitor] 40 mg PO HS #30 tablet 06/20/17 Furosemide [Lasix] 80 mg PO DAILY 10/13/17 Hydralazine HCl 50 mg PO BID 10/13/17 Nifedipine [Procardia Xl] 60 mg PO BID 10/13/17 Spironolactone [Aldactone -] 100 mg PO DAILY 10/13/17 REVIEW OF SYSTEMS CONSTITUTIONAL: diaphoresis, generalized weakness Absent: fever, chills, malaise, loss of appetite, weight change HEENT: Absent: rhinorrhea, nasal congestion, throat pain, throat swelling, difficulty swallowing, mouth swelling, ear pain, eye pain, visual changes CARDIOVASCULAR: chest pain Absent: syncope, palpitations, irregular heart rate, lightheadedness, peripheral edema RESPIRATORY: shortness of breath, dyspnea with exertion, cough Absent: orthopnea, wheezing, stridor, hemoptysis GASTROINTESTINAL:abdominal pain, abdominal distension, nausea, constipation Absent: vomiting, diarrhea, melena, hematochezia GENITOURINARY: Absent: dysuria, frequency, urgency, hesitancy, hematuria, flank pain, genital pain MUSCULOSKELETAL: Absent: myalgia, arthralgia, joint swelling, back pain, neck pain SKIN: Absent: rash, itching, pallor HEMATOLOGIC/IMMUNOLOGIC: Absent: easy bleeding, easy bruising, lymphadenopathy, frequent infections ENDOCRINE: Absent: unexplained weight gain, unexplained weight loss, heat intolerance, cold intolerance NEUROLOGIC: Absent: headache, focal weakness or paresthesias, dizziness, unsteady gait, seizure, mental status changes, bladder or bowel incontinence PSYCHIATRIC: Absent: anxiety, depression, suicidal or homicidal ideation, hallucinations. PHYSICAL EXAMINATION Vital Signs - 24 hr 10/21/17 10/21/17 10/21/17 00:51 03:11 03:30 Temperature 101.0 F H Pulse Rate 76 Pulse Rate [ 70 69 Apical] Respiratory 20 25 H 18 Rate Blood Pressure 184/118 Blood Pressure 183/119 174/124 [Right Arm] O2 Sat by Pulse 100 100 100 Oximetry (%) 10/21/17 04:08 Temperature 98.6 F Pulse Rate Pulse Rate [ Apical] Respiratory 17 Rate Blood Pressure Blood Pressure 171/119 [Right Arm] O2 Sat by Pulse 100 Oximetry (%) GENERAL: A&Ox3, no acute distress, diaphoretic EYES: PERRLA, EOMI ENT: Moist mucus membranes NECK: Mild JVD noted on exam LUNGS: bibasilar crackles noted on exam, no wheezes HEART: RRR, no murmurs ABDOMEN: Distended, BS diminished but present, tender to palpation of epigastrum MUSCULOSKELETAL: No CVA Tenderness EXTREMITIES: 2+ pulses, 2+ pitting edema noted bilaterally in lower extremities NEUROLOGICAL: Cranial nerves II-XII intact. Laboratory Results - last 24 hr 10/21/17 10/21/17 10/21/17 01:38 01:38 01:38 WBC 11.6 H RBC 2.38 L Hgb 7.0 L Hct 22.0 L MCV 92.3 MCH 29.6 MCHC 32.0 RDW 15.4 Plt Count 176 MPV 8.5 Absolute Neuts (auto) 10.6 Neutrophils % 91.5 H Neutrophils % (Manual) 88.8 H Band Neutrophils % 2.0 Lymphocytes % 2.9 L D Lymphocytes % (Manual) 2.0 L Monocytes % 4.9 Monocytes % (Manual) 4 Eosinophils % 0.5 Eosinophils % (Manual) 2.1 Basophils % 0.2 Basophils % (Manual) 1.0 Myelocytes % (Man) 0 Promyelocytes % (Man) 0 Blast Cells % (Manual) 0 Nucleated RBC % 0 Metamyelocytes 0 Hypochromia 0 Toxic Granulation 0 Dohle Bodies 0 Platelet Estimate Normal Polychromasia 0 Poikilocytosis 0 Basophilic Stippling 0 Anisocytosis 0 Microcytosis 0 Macrocytosis 0 Spherocytes 0 Sickle Cells 0 Target Cells 0 Tear Drop Cells 0 Ovalocytes 0 Stomatocytes 0 Helmet Cells 0 Javier-[place] Bodies 0 [place] Rings 0 David Cells 0 Acanthocytes (Spur) 0 Rouleaux 0 Fragmented RBCs 0 Schistocytes 0 PT with INR INR PTT (Actin FS) Sodium 135 L Potassium 3.0 L Chloride 97 L Carbon Dioxide 27 Anion Gap 11 BUN 49 H Creatinine 4.9 H Creat Clearance w eGFR 9.86 Random Glucose 139 H Lactic Acid Calcium 8.4 L Total Bilirubin 0.5 AST 22 ALT 57 Alkaline Phosphatase 163 H D Troponin I 0.18 H Total Protein 5.6 L Albumin 2.3 L TSH 1.01 Blood Type Antibody Screen 10/21/17 10/21/17 10/21/17 02:30 02:42 02:42 WBC RBC Hgb Hct MCV MCH MCHC RDW Plt Count MPV Absolute Neuts (auto) Neutrophils % Neutrophils % (Manual) Band Neutrophils % Lymphocytes % Lymphocytes % (Manual) Monocytes % Monocytes % (Manual) Eosinophils % Eosinophils % (Manual) Basophils % Basophils % (Manual) Myelocytes % (Man) Promyelocytes % (Man) Blast Cells % (Manual) Nucleated RBC % Metamyelocytes Hypochromia Toxic Granulation Dohle Bodies Platelet Estimate Polychromasia Poikilocytosis Basophilic Stippling Anisocytosis Microcytosis Macrocytosis Spherocytes Sickle Cells Target Cells Tear Drop Cells Ovalocytes Stomatocytes Helmet Cells Javier-[place] Bodies [place] Rings [place] Cells Acanthocytes (Spur) Rouleaux Fragmented RBCs Schistocytes PT with INR 14.60 H INR 1.29 H PTT (Actin FS) 32.4 Sodium Potassium Chloride Carbon Dioxide Anion Gap BUN Creatinine Creat Clearance w eGFR Random Glucose Lactic Acid 1.2 Calcium Total Bilirubin AST ALT Alkaline Phosphatase Troponin I Total Protein Albumin TSH Blood Type AB POSITIVE Antibody Screen Negative Preliminary night-hawk CT Abd/Pelvis: small b/l pleural effusions, mild atelectasis in lower lobes and lingula. There is cardiomegaly, mild pericardial effusion noted. Hepatomegaly noted with scattered cystic liver findings. Mild free fluid in peritoneum. Moderate amount of stool in colon ASSESSMENT/PLAN: 37 year old female hx of conn syndrome, HTN, CKD presenting for chest pain, shortness of breath, abdominal pain, and fevers #Chest pain: Likely Hypertension vs CHF in origin vs PNA and less likely ACS -patient's troponins are and have been elevated at a similar level on previous admissions -will trend troponin now -obtain new EKG in AM -lipid panel -obtain new echocardiogram -Cards consult Dr. Madrigal appreciated -cardiac monitoring now -lasix 80 IV push, monitor UO, if low, can likely increase lasix -daily weights -accurate I's/O's -3L NC O2 -repeat EKG -with fever and cough, will continue ceftriaxone/azithromycin #Hypertension: Most recent BP 170/120, patient missed her evening doses of medications. Likely non-compliant with meds at home -give evening dose of labetalol and nifedipine now -considering previous admission and need for ICU management of BP with nicardipine drip, keep close eye on BP and if BP rises despite antihypertensive medication, patient will need ICU monitoring again and likely get started on drip -restart home meds (hydralazine, labetalol, nifedipine) -increase lasix to 80 IV push -confirm clonidine dose and restart if accurate -recheck BP #Hypokalemia: patient's potassium 3.0 -will give K-dur to replete -will also give 3 bags K riders -recheck potassium in AM labs -check magnesium #Abdominal Pain: patient did not have a bowel movement in several days according to her and has some distention/tenderness in epigastrum -CT abd/pelvis shows some free fluid in peritoneum, moderate stool in colon -surgery consult appreciated -colace, senna, miralax - reassess and can do enemas after #Symptomatic Anemia: patient's hemoglobin is 7.0, has been worked up in the past and found to have normal Fe/TIBC and B12/Folate; this is likely related to chronic kidney disease -type and screen -hold off on transfusion at the moment, repeat Hgb in AM -give venofer and procrit -heme consult Dr. Romo appreciated #Chronic Kidney Disease: likely 2/2 hypertensive nephropathy -patient's kidney function is similar to what it was on previous admissions -patient was followed by Dr. Sunshine in the hospital similar to previous admission -consult Dr. Sunshine appreciated -f/u urinalysis #FEN -no standing fluids -replete potassium -sodium controlled diet #Prophylaxis -SCDs due to low hgb #Disposition -Admit to telemetry for CHF exacerbation, r/o acs Visit type - Emergency Visit Emergency Visit: Yes ED Registration Date: 10/21/17 Care time: The patient presented to the Emergency Department on the above date and was hospitalized for further evaluation of their emergent condition. - New Patient This patient is new to me today: Yes Date on this admission: 10/21/17 - Critical Care Critical Care patient: No Hospitalist Screening - Colonoscopy Questionnaire Colonoscopy Questionnaire: Colonoscopy Questionnaire - Patient: 50 - 75 years old and never had a screening colonoscopy: Unknown History of colon or rectal polyps, or CA: Unknown History of IBD, Crohn's disease or UC: Unknown History of abdominal radiation therapy as a child: Unknown - Relative: 1 with colon or rectal CA, or polyps at age 60 or younger: Unknown Colon or rectal CA diagnosed at age 45 or younger: Unknown Multiple relatives with colon or rectal CA: Unknown - Outcome: Screening Result: Negative Screen
[2017-10-21] MEDS ORDERED: POTASSIUM CHLORIDE ORAL LIQUID 20 MEQ/15 ML ONE ×3 (04:20→07:00)
[2017-10-21] MEDS ORDERED: MORPHINE SULFATE 2 MG/ML VIAL IVPUSH ONE (04:40)
[2017-10-21] MEDS: NIFEdipine E.R 60 MG TABLET (UD) PO SCH ×2 (04:54→21:12)
[2017-10-21] MEDS: POTASSIUM CHLORIDE ORAL LIQUID 20 MEQ/15 ML PO ONE ×2 (04:54→06:09)
[2017-10-21] MEDS: LABETALOL HCL 200 MG TABLET (FP) PO SCH ×2 (04:54→21:12)
--- NOTE | 2017-10-21 04:57 | PN ---
Teaching Attending Note Name of Resident: Nirav Stephens ATTENDING PHYSICIAN STATEMENT I saw and evaluated the patient. I reviewed the resident's note and discussed the case with the resident. I agree with the resident's findings and plan as documented. SUBJECTIVE: Patient is a 37 year old woman with a significant past medical history of Conn' s syndrome, uncontrolled HTN, NSTEMI (06/2017) hyperaldosteronism who presents to the emergency department for evaluation of chest pain. The patient reports moderate chest pain radiating to her left shoulder while driving back to [place] from [place] last night. She states she stopped multiple times during her trip to walk around. She also reports moderate diffuse abdominal pain and a 2 week history of constipation. Pt reports associated symptoms of a 1 day history of fever, cough, and shortness of breath. The patient also reports nausea without vomiting. The patient reports a decrease in appetite secondary to abdominal pain.She notes her ankles are much more swollen than baseline. She took miralax with no alleviation. Of note, the patient reports visiting the [facility] today to follow up, but states she received no help, prompting her to visit the emergency department for further evaluation. As per medical records, the patient was diagnosed with a ?DC 5 days ago. She is a and received blood transfusion about 2 months ago. has never gotten EPO or similar agents. OBJECTIVE: Alert but very weak. In no acute distress. Vital Signs Period Temp Pulse Resp BP Sys/Li Pulse Ox Last 24 Hr 98.6 F-101.0 F 66-76 17-25 171-187/118-126 98-100 HEENT: No Jaundice, eye redness or discharge, Pallor, PERRLA, EOMI. Normocephalic, atraumatic. External ears are normal and hearing is grossly intact. No nasal discharge. Tinge of jaundice. Neck: Supple, nontender. No palpable adenopathy or thyromegaly. No JVD Chest: Good effort. Clear to auscultation and percussion. Heart: Regular. No S3, rub or murmur Abdomen: Not distended, soft, nontender and no HSM. No rebound or guarding. Normoactive bowel sounds. Ext: Peripheral pulses intact. Leg edema. Skin: Warm and dry. No petechiae, rash or ecchymosis. Neuro: Alert. Oriented x3. CN 2-12 grossly intact. Sensation grossly intact in all four extremities and DTR are symmetric. Current Medications Generic Name Dose Route Start Last Admin Trade Name Ismaelq PRN Reason Stop Dose Admin Atorvastatin Calcium 40 mg 10/21/17 22:00 Lipitor - PO HS BRET Doxazosin Mesylate 16 mg 10/21/17 10:00 Cardura - PO DAILY BRET Furosemide 80 mg 10/21/17 10:00 Lasix - PO DAILY BRET Hydralazine HCl 50 mg 10/21/17 10:00 Apresoline - PO BID BRET Labetalol HCl 600 mg 10/21/17 04:30 10/21/17 04:54 Normodyne - PO 600 mg BID BRET Administration Nifedipine 60 mg 10/21/17 04:30 10/21/17 04:54 Procardia Xl - PO 60 mg BID BRET Administration Spironolactone 100 mg 10/21/17 10:00 Aldactone - PO DAILY [facility] Home Medications Medication Instructions Recorded Labetalol HCl [Normodyne -] 600 mg PO BID 04/01/17 Clonidine Patch [Catapres Tts 0.3 mg TD WEEKLY 04/02/17 Patch -] Doxazosin Mesylate 16 mg PO DAILY 04/02/17 Atorvastatin Ca [Lipitor] 40 mg PO HS #30 tablet 06/20/17 Furosemide [Lasix] 80 mg PO DAILY 10/13/17 Hydralazine HCl 50 mg PO BID 10/13/17 Nifedipine [Procardia Xl] 60 mg PO BID 10/13/17 Spironolactone [Aldactone -] 100 mg PO DAILY 10/13/17 Abnormal Lab Results 10/21/17 10/21/17 10/21/17 01:33 01:38 01:38 WBC 11.6 H RBC 2.38 L Hgb 7.0 L Hct 22.0 L Neutrophils % 91.5 H Neutrophils % (Manual) 88.8 H Lymphocytes % 2.9 L D Lymphocytes % (Manual) 2.0 L PT with INR INR Sodium 135 L Potassium 3.0 L Chloride 97 L BUN 49 H Creatinine 4.9 H Random Glucose 139 H Calcium 8.4 L Alkaline Phosphatase 163 H D Troponin I 0.18 H B-Natriuretic Peptide 550916 H Total Protein 5.6 L Albumin 2.3 L 10/21/17 02:42 WBC RBC Hgb Hct Neutrophils % Neutrophils % (Manual) Lymphocytes % Lymphocytes % (Manual) PT with INR 14.60 H INR 1.29 H Sodium Potassium Chloride BUN Creatinine Random Glucose Calcium Alkaline Phosphatase Troponin I B-Natriuretic Peptide Total Protein Albumin ASSESSMENT AND PLAN: 1. Advanced CKD with fluid overload - Will treat with appropriate doses of IV lasix to mobilize excess fluid and also control her hypertension. Will restart her home antihypertensive medications. May also have underlying CHF (BNP 151,320 ) which will be exacerbated by fluid retention associated with CKD. EKG shows fixed ST-T changes in V4-6 and she has chronic elevated troponin. Will admit to telemetry and rule out ACS. Needs ECHO, nephrology and cardiology consult. 2. Severe anemia - Never been treated with Procrit. Had anemia work up 2-3 months ago. Will get iron studies, rule out GI loss and give her procrit after iron repletion. Will hold off on further blood transfusion at this time to avoid generating more antibodies that will make crossmatching for kidney transplant more challenging. 3. Pneumonia - CXR shows LLL infiltrate. Will treat with IV Rocephin and Azithromycin. 4. Constipation - Treat with Miralax and if no improvement will give an enema. 5. Social issues - Patient needs assistance to deal with issues that may be affecting her adherence to medical care regimen. Needs generous emotional support. 6. Hypoalbuminemia - Possibly due to combined effects of proteinuria, malnutrition and inflammation associated with comorbid chronic conditions. Will ensure adequate dietary protein intake and also consult manager front. 7. DVT prophylaxis - Heparin 5000u sq tid. 8. Advance directives - Full code
[2017-10-21] MEDS ORDERED: IRON SUCROSE INJECTION 300 MG in SODIUM CHLORIDE 235 ML IVPB ONE (05:50)
[2017-10-21] MEDS ORDERED: EPOETIN ALFA 2,000 UNIT/1 ML VIAL SQ ONE (05:51)
[2017-10-21] MEDS ORDERED: HEPARIN NA (PORCINE) 5,000 UNITS/ML 1ML VIAL SQ SCH (06:00)
[2017-10-21 06:02] LABS: HEMATOCRIT 21.1 % (32.4-45.2); HEMOGLOBIN 7.1 GM/dL (10.7-15.3); MCHC 33.8 g/dl (32.0-36.0); MEAN CELL VOLUME 91.9 fl (80-96); MEAN PLT VOLUME 7.9 fl (7.5-11.1); PLATELET COUNT 141 K/MM3 (134-434); RBC 2.29 M/mm3 (3.60-5.2); RDW 15.4 % (11.6-15.6); WHITE BLOOD COUNT 12.3 K/mm3 (4.0-10.0)
[2017-10-21] MEDS ORDERED: KCL IVPB ONE (06:12)
[2017-10-21] MEDS: KCL 10 MEQ IVPB 10 MEQ/100 ML INFUS.BAG IVPB SCH ×3 (06:17→08:44)
[2017-10-21 06:23] LABS: ALBUMIN 2.3 g/dl (3.4-5.0); ALK PHOS 166 U/L (45-117); ANION GAP 11 (8-16); BILIRUBIN,TOTAL 0.4 mg/dL (0.2-1.0); BLOOD UREA NITROGEN 46 mg/dL (7-18); CALCIUM 8.2 mg/dL (8.5-10.1); CHLORIDE 97 mmol/L (98-107); CHOLESTEROL 106 mg/dL (50-200); CO2 27 mmol/L (21-32); GLUCOSE,RANDOM 129 mg/dL (74-106); HDL CHOLESTEROL 41 mg/dL (40-60); MAGNESIUM 2.4 mg/dL (1.8-2.4); SGOT/AST 20 U/L (15-37); SGPT/ALT 52 U/L (12-78); SODIUM 135 mmol/L (136-145); TOT PROT 5.4 g/dl (6.4-8.2); TRIGLYCERIDES 87 mg/dL (35-160)
[2017-10-21 06:26] LABS: POTASSIUM 2.8 mmol/L (3.5-5.1)
[2017-10-21] MEDS ORDERED: POTASSIUM CHLORIDE ORAL LIQUID 20 MEQ/15 ML PO ONE ×2 (06:42→14:00)
[2017-10-21] MEDS ORDERED: POTASSIUM CHLORIDE TABS 20 MEQ TABLET.ER (FP) PO SCH ×2 (07:00→08:31)
--- NOTE | 2017-10-21 09:07 | CON.CARD ---
Consult Consult Specialty:: cardio - History of Present Illness Chief Complaint: cp History of Present Illness: 37 F here with cp. 2d ago drove 6 hrs from [place]--when got home feet were swollen and hurt to walk. never had this before. resolved with leg elevation at home. then yest noted feet swollen again. also felt chills and hot with sweats x 1. felt very sob at that time. had an episode of localized L parasternal CP radiating to L shoulder that lasted close to 1 hr yesterday so came to ER. no back pain or "tearing" sensation assctd with the cp, no new neuro deficits. no more CP. no vomiting. no pleuritic cp component. no more sob today. PMH: HTN/hyperaldo CKD mixed syst/diast chf aorta aneurysm - Past Medical History Cardio/Vascular: Yes: HTN Renal/: Yes: Renal Inusuff, Other (Conn syndrome) Endocrine: Yes: Other (hyperaldosteronism) - Past Surgical History Past Surgical History: Yes: - Alcohol/Substance Use Hx Alcohol Use: No History of Substance Use: reports: None - Smoking History Smoking history: Never smoked Have you smoked in the past 12 months: No If you are a former smoker, when did you quit?: january - Social History ADL: Independent Occupation: [employer] History of Recent Travel: No Home Medications - Allergies Allergies/Adverse Reactions: Allergies Allergy/AdvReac Type Severity Reaction Status Date / Time No Known Allergies Allergy Verified 10/21/17 00:51 - Home Medications Home Medications: Ambulatory Orders Labetalol HCl [Normodyne -] 300 mg PO BID 04/01/17 Clonidine Patch [Catapres Tts Patch -] 0.3 mg TD WEEKLY 04/02/17 Doxazosin Mesylate 8 mg PO BID 04/02/17 Atorvastatin Ca [Lipitor] 40 mg PO HS #30 tablet 06/20/17 Furosemide [Lasix] 80 mg PO DAILY 10/13/17 Hydralazine HCl 50 mg PO BID 10/13/17 Nifedipine [Procardia Xl] 60 mg PO BID 10/13/17 Spironolactone [Aldactone -] 50 mg PO BID 10/13/17 Family Disease History - Family Disease History Family Disease History: Other: Grandparent (htn), Mother (htn) Review of Systems - Review of Systems Constitutional: reports: Chills, Fever Eyes: denies: Eye Pain HENT: denies: Nasal Congestion Neck: denies: Stiffness Cardiovascular: denies: Palpitations Respiratory: denies: Orthopnea, PND Gastrointestinal: denies: Diarrhea, Rectal Bleeding Genitourinary: denies: Burning, Hematuria Musculoskeletal: denies: Muscle Pain Integumentary: denies: Rash Neurological: denies: Numbness, Seizure, Syncope Endocrine: denies: Excessive Sweating Hematology/Lymphatic: denies: Excessive Bleeding Vital Signs: Vital Signs Temperature 98.6 F 10/21/17 07:45 Pulse Rate 64 10/21/17 07:45 Respiratory Rate 18 10/21/17 07:45 Blood Pressure 110/68 10/21/17 07:45 O2 Sat by Pulse Oximetry (%) 90 L 10/21/17 07:45 Constitutional: Yes: Well Nourished, No Distress Eyes: No: Sclera Icterus HENT: No: Nasal Congestion Neck: No: Decreased ROM Respiratory: Yes: Regular, Rales (bases). No: Accessory Muscle Use, Wheezes Gastrointestinal: Yes: Normal Bowel Sounds. No: Distention, Hepatomegaly, Palpable Mass, Tenderness Cardiovascular: Yes: Regular Rate and Rhythm JVD: Yes Carotid Bruit: No PMI: Non-Displaced Heart Sounds: Yes: S1, S2. No: Gallop Murmur: Yes: Systolic Murmur (HSM LLSB, decr with inspiration). No: Diastolic Murmur Musculoskeletal: Yes: Other (No kyphosis) Extremities: No: Cool, Cyanosis Edema: Yes (2+ ankles) Peripheral Pulses: 2+ Left Carotid, 2+ Right Carotid, 2+ Left Doralis Pedis, 2+ Right Dorsalis Pedis Integumentary: No: Jaundice Neurological: Yes: Alert, Oriented (x3) Psychiatric: No: Agitated - Other Data Labs, Other Data: CBC, BMP 10/21/17 05:50 10/21/17 05:50 INR, PTT INR 1.29 (0.82-1.09) H 10/21/17 02:42 Troponin, BNP 10/21/17 10/21/17 10/21/17 01:33 01:38 05:50 Troponin I 0.18 H 0.14 H B-Natriuretic Peptide [id number] H Troponin, BNP 10/21/17 10/21/17 10/21/17 01:33 01:38 05:50 Troponin I 0.18 H 0.14 H B-Natriuretic Peptide [id number] H Laboratory Tests 10/21/17 10/21/17 10/21/17 01:38 05:50 05:50 WBC 12.3 H Hgb 7.1 L Plt Count 141 Sodium 135 L Potassium 2.8 L* Carbon Dioxide 27 BUN 46 H Creatinine 5.0 H AST 20 ALT 52 Troponin I 0.18 H 0.14 H Assessment/Plan ECG: NSR, LVH with repol abn. long QT--no signif change vs 10/14 except QT longer CXR: "new right sided infiltrate". images reviewed: no effusions or vascular redistribution. no R sided infiltrate appreciated (hilar markings ? enlarged PA) . + LLL faint airspace opacities echo 06/2017: mild lve. 1+ conc lvh. mild dec lv sys fn. mild-mod lat wall HK. mod inferolateral wall HK. 1+ lae. 1+ ar, mod mr, nl aortic root size. small pericardial effusion (images reviewed by dr taylor: no regionality to LV hypokinesis--there is global mild-moderate LV hypokinesis, EF 40-45%. moderate conc LVH. moderate MR) echo 03/2017: mod LVH (concentric); nl LVSF. nl RV. nl LA. mild AI/MR/TR. normal aortic root. small effusion chest CT 03/2017: Ascending aorta 4.1 cm. PA dilation (3.6 cm). tele: NSR Assessment/Plan 37 yo with h/o secondary HTN (hyperaldo) in [address] Luigi Dunham and hypertensive specialist Dr Vargas ([facility]) who p/w nausea vomiting and noted to have hypertensive urgency/emergency, troponin elevation and rangel. sob, cp: -sx's associated with fever/chills at home. fever 101 here. CXR my review suggests LLL infiltrate -suspect sx's sec to PNA--abx coverage per hospitalist -remainder of ID w/u per hospitalist - frequent nonspecific chest pain sx's when here in past with elevated BP, including 07/02--? mskel, ? hi filling pressure/chf sx. no signs cardiac ischemia at those time. - presently with no sx features suggestive of aorta dissection/aneurysm expansion - no signs ACS: troponin 0.1 x 2 = intermediate (nonspecific) range with flat trend (lower than prior admits--elevation is sec to chronically high filling pressures/signif LVH). ECG non-ischemic - cp has resolved--observe clinically hypertensive urgency, known hyperaldosteronism, hypertensive heart dz/renal dz: - HTN urgency admit here previously triggered by non-adherence to po meds due to naus and vomiting (was seeing GI for this at [place], with EGD scheduled at that time). same this time. per pt, GI has not found the etiology of her sx's, and ongoing suspicion may be med side effect. - ? labetalol 600mg caused nausea/vomiting--decr'd dose to 400 bid at that time. mult meds recently increased at that time as outpt, shortly prior to worsening of nausea. now back up to 600 bid as outpt - pt follows with HTN specialist at [place] (dr vargas), with prior inconclusive adrenal vein sampling - mult admits with HTN urgency triggered by relapsing naus/vomiting and inability to take PO meds--following with GI (at [place]) for this, ? med s.e. 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 + JVD to jaw, c/w volume overload with reduced GFR contributing - has been on lasix 80 po qd at home. - start lasix 80 iv qd here--observe wt trend, JVD, creatinine - her [place] renal doc has been deferring dialysis planning for now per pt--rec renal f/u here if creatinine bumps hypokalemia-->causing prolonged QT: - sec to hyperaldosternoism. - has required up to 140 meq qd K repletion in past - replete K aggressively - K 2.8 today--received 40meq x2 so far. will rpt 3rd dose later. - KCL 40 bid to start tomorrow, expect will need more. trend labs aorta aneurysm: -4.1 cm ascending aorta on 03/2017 CT scan -sec to uncontrolled HTN -bp control, bp as doing -routine outpt aorta surveillance CKD: -creat running around 5.0 on recent visits, GFR 9 -stable here
[2017-10-21] MEDS ORDERED: FUROSEMIDE 40 MG/4 ML INJECTABLE VIAL IVPUSH SCH (10:00)
[2017-10-21] MEDS ORDERED: DOCUSATE SODIUM 100 MG CAPSULE (FP) PO SCH ×2 (10:00→22:00)
[2017-10-21] MEDS ORDERED: NIFEdipine E.R 60 MG TABLET (UD) PO SCH (10:00)
[2017-10-21] MEDS ORDERED: LABETALOL HCL 200 MG TABLET (FP) PO SCH (10:00)
[2017-10-21] MEDS ORDERED: FUROSEMIDE 40 MG TABLET (FP) PO SCH (10:00)
[2017-10-21] MEDS: SPIRONOLACTONE 25 MG TABLET (FP) PO SCH (10:18)
[2017-10-21] MEDS: hydrALAZINE HCL 50 MG TABLET (FP) PO SCH ×2 (10:19→21:12)
[2017-10-21] MEDS ORDERED: ACETAMINOPHEN 325 MG TABLET (FP) ONE (10:22)
[2017-10-21] MEDS: SENNOSIDES 8.6MG TABLET (FP) PO SCH ×2 (10:28→21:12)
[2017-10-21] MEDS: ASPIRIN COATED 81 MG TABLET.EC PO SCH (10:28)
[2017-10-21] MEDS: POLYETHYLENE GLYCOL 3350 119 GM BTL PO SCH (10:31)
--- NOTE | 2017-10-21 12:56 | PN ---
Physical Exam: SUBJECTIVE: Patient seen and examined at bedside. Complains of headache, body aches, pleuritic-type chest pain. OBJECTIVE: Vital Signs Period Temp Pulse Resp BP Sys/Li Pulse Ox Last 24 Hr 98.6 F-101.0 F 63-76 17-25 110-187/68-126 90-100 GENERAL: The patient is awake, alert, and fully oriented. LUNGS: CTA HEART: Regular rate and rhythm, S1, S2; +JVD ABDOMEN: Soft, nontender, nondistended, normoactive bowel sounds, no guarding, no rebound EXTREMITIES: 2+ pulses, warm, well-perfused, 1+ edema bilaterally NEUROLOGICAL: Cranial nerves II through XII grossly intact. Normal speech, gait not observed. Laboratory Results - last 24 hr 10/21/17 10/21/17 10/21/17 01:33 01:38 01:38 WBC 11.6 H RBC 2.38 L Hgb 7.0 L Hct 22.0 L MCV 92.3 MCH 29.6 MCHC 32.0 RDW 15.4 Plt Count 176 MPV 8.5 Absolute Neuts (auto) 10.6 Neutrophils % 91.5 H Neutrophils % (Manual) 88.8 H Band Neutrophils % 2.0 Lymphocytes % 2.9 L D Lymphocytes % (Manual) 2.0 L Monocytes % 4.9 Monocytes % (Manual) 4 Eosinophils % 0.5 Eosinophils % (Manual) 2.1 Basophils % 0.2 Basophils % (Manual) 1.0 Myelocytes % (Man) 0 Promyelocytes % (Man) 0 Blast Cells % (Manual) 0 Nucleated RBC % 0 Metamyelocytes 0 Hypochromia 0 Toxic Granulation 0 Dohle Bodies 0 Platelet Estimate Normal Polychromasia 0 Poikilocytosis 0 Basophilic Stippling 0 Anisocytosis 0 Microcytosis 0 Macrocytosis 0 Spherocytes 0 Sickle Cells 0 Target Cells 0 Tear Drop Cells 0 Ovalocytes 0 Stomatocytes 0 Helmet Cells 0 Javier-Comfrey Bodies 0 [place] Rings 0 David Cells 0 Acanthocytes (Spur) 0 Rouleaux 0 Fragmented RBCs 0 Schistocytes 0 PT with INR INR PTT (Actin FS) Sodium 135 L Potassium 3.0 L Chloride 97 L Carbon Dioxide 27 Anion Gap 11 BUN 49 H Creatinine 4.9 H Creat Clearance w eGFR 9.86 Random Glucose 139 H Lactic Acid Calcium 8.4 L Magnesium Total Bilirubin 0.5 AST 22 ALT 57 Alkaline Phosphatase 163 H D Troponin I 0.18 H B-Natriuretic Peptide 833412 H Total Protein 5.6 L Albumin 2.3 L Triglycerides Cholesterol Total LDL Cholesterol HDL Cholesterol TSH Blood Type Antibody Screen Crossmatch 10/21/17 10/21/17 10/21/17 01:38 02:30 02:42 WBC RBC Hgb Hct MCV MCH MCHC RDW Plt Count MPV Absolute Neuts (auto) Neutrophils % Neutrophils % (Manual) Band Neutrophils % Lymphocytes % Lymphocytes % (Manual) Monocytes % Monocytes % (Manual) Eosinophils % Eosinophils % (Manual) Basophils % Basophils % (Manual) Myelocytes % (Man) Promyelocytes % (Man) Blast Cells % (Manual) Nucleated RBC % Metamyelocytes Hypochromia Toxic Granulation Dohle Bodies Platelet Estimate Polychromasia Poikilocytosis Basophilic Stippling Anisocytosis Microcytosis Macrocytosis Spherocytes Sickle Cells Target Cells Tear Drop Cells Ovalocytes Stomatocytes Helmet Cells Javier-Comfrey Bodies [place] Rings [place] Cells Acanthocytes (Spur) Rouleaux Fragmented RBCs Schistocytes PT with INR 14.60 H INR 1.29 H PTT (Actin FS) 32.4 Sodium Potassium Chloride Carbon Dioxide Anion Gap BUN Creatinine Creat Clearance w eGFR Random Glucose Lactic Acid 1.2 Calcium Magnesium Total Bilirubin AST ALT Alkaline Phosphatase Troponin I B-Natriuretic Peptide Total Protein Albumin Triglycerides Cholesterol Total LDL Cholesterol HDL Cholesterol TSH 1.01 Blood Type Antibody Screen Crossmatch 10/21/17 10/21/17 10/21/17 02:42 05:50 05:50 WBC 12.3 H RBC 2.29 L Hgb 7.1 L Hct 21.1 L MCV 91.9 MCH 31.0 MCHC 33.8 RDW 15.4 Plt Count 141 MPV 7.9 Absolute Neuts (auto) Neutrophils % Neutrophils % (Manual) Band Neutrophils % Lymphocytes % Lymphocytes % (Manual) Monocytes % Monocytes % (Manual) Eosinophils % Eosinophils % (Manual) Basophils % Basophils % (Manual) Myelocytes % (Man) Promyelocytes % (Man) Blast Cells % (Manual) Nucleated RBC % Metamyelocytes Hypochromia Toxic Granulation Dohle Bodies Platelet Estimate Polychromasia Poikilocytosis Basophilic Stippling Anisocytosis Microcytosis Macrocytosis Spherocytes Sickle Cells Target Cells Tear Drop Cells Ovalocytes Stomatocytes Helmet Cells Javier-Comfrey Bodies [place] Rings [place] Cells Acanthocytes (Spur) Rouleaux Fragmented RBCs Schistocytes PT with INR INR PTT (Actin FS) Sodium 135 L Potassium 2.8 L* Chloride 97 L Carbon Dioxide 27 Anion Gap 11 BUN 46 H Creatinine 5.0 H Creat Clearance w eGFR 9.63 Random Glucose 129 H Lactic Acid Calcium 8.2 L Magnesium 2.4 Total Bilirubin 0.4 AST 20 ALT 52 Alkaline Phosphatase 166 H Troponin I 0.14 H B-Natriuretic Peptide Total Protein 5.4 L Albumin 2.3 L Triglycerides 87 Cholesterol 106 Total LDL Cholesterol 50 HDL Cholesterol 41 TSH Blood Type AB POSITIVE Antibody Screen Negative Crossmatch See Detail 10/21/17 08:30 WBC RBC Hgb Hct MCV MCH MCHC RDW Plt Count MPV Absolute Neuts (auto) Neutrophils % Neutrophils % (Manual) Band Neutrophils % Lymphocytes % Lymphocytes % (Manual) Monocytes % Monocytes % (Manual) Eosinophils % Eosinophils % (Manual) Basophils % Basophils % (Manual) Myelocytes % (Man) Promyelocytes % (Man) Blast Cells % (Manual) Nucleated RBC % Metamyelocytes Hypochromia Toxic Granulation Dohle Bodies Platelet Estimate Polychromasia Poikilocytosis Basophilic Stippling Anisocytosis Microcytosis Macrocytosis Spherocytes Sickle Cells Target Cells Tear Drop Cells Ovalocytes Stomatocytes Helmet Cells Javier-Comfrey Bodies [place] Rings David Cells Acanthocytes (Spur) Rouleaux Fragmented RBCs Schistocytes PT with INR INR PTT (Actin FS) Sodium Potassium Chloride Carbon Dioxide Anion Gap BUN Creatinine Creat Clearance w eGFR Random Glucose Lactic Acid Calcium Magnesium Total Bilirubin AST ALT Alkaline Phosphatase Troponin I 0.12 H B-Natriuretic Peptide Total Protein Albumin Triglycerides Cholesterol Total LDL Cholesterol HDL Cholesterol TSH Blood Type Antibody Screen Crossmatch Current Medications Generic Name Dose Route Start Last Admin Trade Name Freq PRN Reason Stop Dose Admin Acetaminophen 650 mg 10/21/17 10:18 10/21/17 14:37 Tylenol - PO 650 mg Q6H PRN Administration PAIN LEVEL 1-5 Aspirin 81 mg 10/21/17 10:00 10/21/17 10:28 Ecotrin - PO 81 mg DAILY BRET Administration Atorvastatin Calcium 40 mg 10/21/17 22:00 10/21/17 21:12 Lipitor - PO 40 mg HS BRET Administration Docusate Sodium 300 mg 10/21/17 22:00 10/21/17 21:12 Colace - PO 300 mg HS BRET Administration Doxazosin Mesylate 16 mg 10/21/17 22:00 10/21/17 21:12 Cardura - PO 16 mg HS BRET Administration Furosemide 80 mg 10/21/17 10:00 10/21/17 10:28 Lasix Injection - IVPUSH 80 mg DAILY BRET Administration Guaifenesin/Codeine Phosphate 10 ml 10/21/17 20:44 10/21/17 21:12 Robitussin Ac - PO 10 ml Q6H PRN Administration COUGH Hydralazine HCl 50 mg 10/21/17 10:00 10/21/17 21:12 Apresoline - PO 50 mg BID BRET Administration Vancomycin HCl 1,000 mg/ 250 mls @ 166.667 mls/hr 10/21/17 16:30 Dextrose IVPB Q12H BRET Protocol Piperacillin Sod/Tazobactam 50 mls @ 100 mls/hr 10/21/17 18:00 Sod 3.375 gm/ Dextrose IVPB Q8H-IV BRET Protocol Piperacillin Sod/Tazobactam 50 mls @ 100 mls/hr 10/21/17 18:00 10/21/17 18:42 Sod 3.375 gm/ Dextrose IVPB 10/22/17 10:29 100 mls/hr Q8H-IV BRET Administration Vancomycin HCl 1,000 mg/ 250 mls @ 166.667 mls/hr 10/21/17 16:45 10/21/17 17: 14 Dextrose IVPB 10/22/17 06:14 166.667 mls/hr Q12H BRET Administration Labetalol HCl 600 mg 10/21/17 04:30 10/21/17 21:12 Normodyne - PO 600 mg BID BRET Administration Nifedipine 60 mg 10/21/17 04:30 10/21/17 21:12 Procardia Xl - PO 60 mg BID BRET Administration Polyethylene Glycol 17 gm 10/21/17 10:00 10/21/17 10:31 Miralax (For Daily Use) - PO 17 gm DAILY BRET Administration Potassium Chloride 40 meq 10/22/17 10:00 K-Dur - PO BID BRET Senna 1 tab 10/21/17 10:00 10/21/17 21:12 Senna - PO 1 tab BID BRET Administration Spironolactone 100 mg 10/21/17 10:00 10/21/17 10:18 Aldactone - PO Not Given DAILY BRET Tramadol HCl 50 mg 10/21/17 12:57 Ultram - PO Q8H PRN PAIN LEVEL 6-10 ASSESSMENT/PLAN: 37 year-old female with a PMH significant for 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 Sepsis likely secondary to HCAP --Tm 101.0, WBC 12.3, CT shows consolidation in LLL --presently normotensive, holding anti-hypertensives --have not aggressively fluid resuscitated due to heart failure --hold diuretics --broaden abx coverage to Vanc and Zosyn --ID consult requested Pyuria --asymptomatic --culture pending --broadly covered anyway Hyperaldosteronism/Conn Syndrome Hypertensive urgency --h/o difficult to control hypertension; last admission was hypertensive, then became hypotensive and required ICU admission --hypertensive on admission 184/118, now normotensive off meds --close monitoring Hypokalemia secondary to aldosteronism Prolonged QTc --repleted 2.8-->4.5 --has required up to 140 meq qd K repletion in past --aggressive repletion and monitoring --avoid QT prolonging agents CKD --Cr 4.9-->5.2 ~baseline but trending up --concern for low UOP, only 200cc's after IV Lasix 80mg but patient insisted she had unmeasured output; did not tolerate attempted vale placement --followed at [facility] where renal doctor has been deferring dialysis for as long as possible --seen and evaluated here by renal Dr. Vazquez, would continue discussion about initiation of HD as diuretic therapy seems to be reaching its limits --strict I&Os, daily weights Acute on chronic diastolic and systolic heart failure --BNP >150,000 is more than 2x value in 06/2017; +JVD; +lower extremity edema --got one dose IV Lasix 80mg this morning; hold diuretics for now secondary to sepsis and since respiratory status remains stable --repeat cxr in am Chest pain --pleuritic in nature, associated with fever, cough, likely secondary to HCAP --flat-trending troponins, ECG not suggestive of ischemic event --seen and evaluated by cardiology, low suspicion for ACS Constipation --CTAP: no evidence of SBO; moderate amount of fecal residue --enema, bowel regimen Normocytic, normochromic anemia --Hgb 7.1 --seen and evaluated by heme, most likely anemia of chronic disease --iron studies, B12 and folate pending --2 units PRBC on hold FEN Fluids: PO intake adequate Electrolytes: replete as indicated Nutrition: low sodium DVT prophylaxis: subq heparin Dispo: continues to require inpatient care. Full code. Visit type - Emergency Visit Emergency Visit: Yes ED Registration Date: 10/21/17 Care time: The patient presented to the Emergency Department on the above date and was hospitalized for further evaluation of their emergent condition. - New Patient This patient is new to me today: Yes Date on this admission: 10/21/17 - Critical Care Critical Care patient: Yes Total Critical Care Time (in minutes): 90 Critical Care Statement: The care of this patient involved high complexity decision making to prevent further life threatening deterioration of the patient 's condition and/or to evaluate & treat vital organ system(s) failure or risk of failure.
--- NOTE | 2017-10-21 14:18 | CONSULT ---
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 extremity edema, chest pain and SOB. Currently she has a cough and she is being treated for volume overload and hypokalemia from the Conn syndrome. There are no symptoms of external blood loss - had a hysterectomy 3 years ago and obviously has had no vaginal bleeding, no hematochezia, no jeramie, no hematemesis. Her diet is good. Recent Travel: denies PAST MEDICAL HISTORY: as stated above PAST SURGICAL HISTORY: Social History: Smoking: former 20 year pack year hx Alcohol: denies Drugs: denies Allergies No Known Allergies Allergy (Verified 10/21/17 00:51) HOME MEDICATIONS: Home Medications Medication Instructions Recorded Labetalol HCl [Normodyne -] 600 mg PO BID 04/01/17 Clonidine Patch [Catapres Tts 0.3 mg TD WEEKLY 04/02/17 Patch -] Doxazosin Mesylate 16 mg PO DAILY 04/02/17 Atorvastatin Ca [Lipitor] 40 mg PO HS #30 tablet 06/20/17 Furosemide [Lasix] 80 mg PO DAILY 10/13/17 Hydralazine HCl 50 mg PO BID 10/13/17 Nifedipine [Procardia Xl] 60 mg PO BID 10/13/17 Spironolactone [Aldactone -] 100 mg PO DAILY 10/13/17 REVIEW OF SYSTEMS CONSTITUTIONAL: generalized weakness Absent: fever, chills, malaise, loss of appetite, weight change HEENT: Absent: rhinorrhea, nasal congestion, throat pain, throat swelling, difficulty swallowing, mouth swelling, ear pain, eye pain, visual changes CARDIOVASCULAR: none Absent: syncope, palpitations, irregular heart rate, lightheadedness, peripheral edema RESPIRATORY: shortness of breath, dyspnea with exertion, cough Absent: orthopnea, wheezing, stridor, hemoptysis GASTROINTESTINAL: constipation Absent: vomiting, diarrhea, melena, hematochezia GENITOURINARY: Absent: dysuria, frequency, urgency, hesitancy, hematuria, flank pain, genital pain MUSCULOSKELETAL: Absent: myalgia, arthralgia, joint swelling, back pain, neck pain SKIN: Absent: rash, itching, pallor HEMATOLOGIC/IMMUNOLOGIC: Absent: easy bleeding, easy bruising, lymphadenopathy, frequent infections ENDOCRINE: Absent: unexplained weight gain, unexplained weight loss, heat intolerance, cold intolerance NEUROLOGIC: Absent: headache, focal weakness or paresthesias, dizziness, unsteady gait, seizure, mental status changes, bladder or bowel incontinence PSYCHIATRIC: Absent: anxiety, depression, suicidal or homicidal ideation, hallucinations. PHYSICAL EXAMINATION Vital Signs Period Temp Pulse Resp BP Sys/Li Pulse Ox Last 24 Hr 98.6 F-101.0 F 63-76 17-25 110-187/68-126 90-100 GENERAL: A&Ox3, no acute distress, diaphoretic EYES: PERRLA, EOMI ENT: Moist mucus membranes NECK: Mild JVD noted on exam LUNGS: bibasilar crackles noted on exam, no wheezes HEART: RRR, no murmurs ABDOMEN: Distended, BS diminished but present, tender to palpation of epigastrum MUSCULOSKELETAL: No CVA Tenderness EXTREMITIES: 2+ pulses, 2+ pitting edema noted bilaterally in lower extremities NEUROLOGICAL: Cranial nerves II-XII intact. CBC, BMP 10/21/17 05:50 10/21/17 05:50 CT Abd/Pelvis: small b/l pleural effusions, mild atelectasis in lower lobes and lingula. There is cardiomegaly, mild pericardial effusion noted. Hepatomegaly noted with scattered cystic liver findings. Mild free fluid in peritoneum. Moderate amount of stool in colon ASSESSMENT/PLAN: 37 year old female hx of conn syndrome, HTN, CKD presenting for volume overload and being treated. Anemia Most likely Anemia of CKD. [normocytic, normochromic anemia] -Last ferritin was 34 suggesting poor iron stores -agree with repeating iron studies inc. B12 and folate -start FeSO4 tid after constipation resolves -will follow -she will need Epo once Fe stores are repleted (we can also give iv iron)
[2017-10-21] MEDS: ACETAMINOPHEN 325 MG TABLET (FP) PO PRN (14:37)
[2017-10-21 15:30] LABS: URINE APPEARANCE SLCLOUDY; URINE BILIRUBIN NEGATIVE (<2.0 mg/dL); URINE COLOR YELLOW; URINE GLUCOSE (UA) NEGATIVE (NEGATIVE); URINE KETONE NEGATIVE (NEGATIVE); URINE NITRITE NEGATIVE (NEGATIVE)
[2017-10-21 15:35] LABS: URINE LEUK ESTERASE 2+ (NEGATIVE); URINE PROTEIN 2+ (NEGATIVE)
[2017-10-21 15:39] LABS: EPI CELLS RARE /HPF (FEW); URINE BACTERIA RARE /hpf (NONE SEEN); YEAST FEW
[2017-10-21] MEDS ORDERED: VANCOMYCIN 1,000 MG in DEXTROSE 5%-WATER - 250 ML IVPB SCH (16:30)
[2017-10-21 16:46] LABS: CHLORIDE 100 mmol/L (98-107); POTASSIUM 4.5 mmol/L (3.5-5.1); SODIUM 135 mmol/L (136-145)
[2017-10-21 16:53] LABS: ANION GAP 9 (8-16); BLOOD UREA NITROGEN 48 mg/dL (7-18); CALCIUM 8.3 mg/dL (8.5-10.1); CO2 26 mmol/L (21-32); CREATININE 5.2 mg/dL (0.55-1.02); GLUCOSE,RANDOM 131 mg/dL (74-106); MAGNESIUM 2.4 mg/dL (1.8-2.4); PHOSPHOROUS 3.6 mg/dL (2.5-4.9)
[2017-10-21] MEDS: VANCOMYCIN 1,000 MG in DEXTROSE 5%-WATER - 250 ML IVPB SCH (17:14)
[2017-10-21] MEDS ORDERED: WARFARIN NA 3 MG TABLET PO SCH (18:00)
[2017-10-21] MEDS ORDERED: PIPERACILLIN/TAZOB 3.375 GM 3.375 GM in DEXTROSE 5%-WATER - 50 ML IVPB SCH (18:00)
[2017-10-21] MEDS ORDERED: PIPERACILLIN/TAZOBACTAM 3.375 GM VIAL IVPB ONE (18:37)
[2017-10-21] MEDS ORDERED: DEXTROSE 5%-WATER - 50 ML IVPB ONE (18:37)
[2017-10-21] MEDS: PIPERACILLIN/TAZOB 3.375 GM 3.375 GM in DEXTROSE 5%-WATER - 50 ML IVPB SCH (18:42)
[2017-10-21] MEDS ORDERED: PT OWN MED DRAWER 7, Y5N ONE (20:11)
[2017-10-21] MEDS ORDERED: guaiFENesin/CODEINE 5 ML UNIT-DOSE CUPS PO PRN (20:44)
--- NOTE | 2017-10-21 21:38 | CON.NEP ---
Consult Consult Specialty:: nephrology Referred by:: ethan Reason for Consultation:: kidney failure - History of Present Illness Chief Complaint: sob, uncontrolled htn - History Source History Provided By: Patient Limitations to Obtaining History: No Limitations - Past Medical History Cardio/Vascular: Yes: HTN Renal/: Yes: Renal Inusuff, Other (Conn syndrome) Endocrine: Yes: Other (hyperaldosteronism) - Past Surgical History Past Surgical History: Yes: - Alcohol/Substance Use Hx Alcohol Use: No History of Substance Use: reports: None - Smoking History Smoking history: Never smoked Have you smoked in the past 12 months: No If you are a former smoker, when did you quit?: january - Social History ADL: Independent Occupation: [email or web address] History of Recent Travel: No Home Medications - Allergies Allergies/Adverse Reactions: Allergies Allergy/AdvReac Type Severity Reaction Status Date / Time No Known Allergies Allergy Verified 10/21/17 00:51 - Home Medications Home Medications: Ambulatory Orders Labetalol HCl [Normodyne -] 300 mg PO BID 04/01/17 Clonidine Patch [Catapres Tts Patch -] 0.3 mg TD WEEKLY 04/02/17 Doxazosin Mesylate 8 mg PO BID 04/02/17 Atorvastatin Ca [Lipitor] 40 mg PO HS #30 tablet 06/20/17 Furosemide [Lasix] 80 mg PO DAILY 10/13/17 Hydralazine HCl 50 mg PO BID 10/13/17 Nifedipine [Procardia Xl] 60 mg PO BID 10/13/17 Spironolactone [Aldactone -] 50 mg PO BID 10/13/17 Family Disease History - Family Disease History Family Disease History: Other: Grandparent (htn), Mother (htn) Review of Systems - Review of Systems Neurological: reports: Headache Nephrology Consult - Height Height: 6 ft - Weight Weight: 154 lb - BMI Body Mass Index (BMI): 20.9 - Lab Results CBC,BMP: CBC, BMP 10/21/17 05:50 10/21/17 15:30 Anion Gap: Anion Gap Anion Gap 9 (8-16) 10/21/17 15:30 - Physical Examination Vital Signs: Vital Signs Temperature 99.2 F 10/21/17 18:09 Pulse Rate 64 10/21/17 18:09 Respiratory Rate 18 10/21/17 18:09 Blood Pressure 114/63 10/21/17 18:09 O2 Sat by Pulse Oximetry (%) 90 L 10/21/17 07:45 Constitutional: Yes: Well Nourished, No Distress, Calm Eyes: Yes: WNL, Conjunctiva Clear, EOM Intact HENT: Yes: WNL, Atraumatic, Normocephalic Neck: Yes: WNL, Supple, Trachea Midline Cardiovascular: Yes: WNL, Regular Rate and Rhythm Respiratory: Yes: WNL, Regular, CTA Bilaterally Gastrointestinal: Yes: WNL, Normal Bowel Sounds Musculoskeletal: Yes: WNL Extremities: Yes: WNL Edema: No Peripheral Pulses WNL: Yes Integumentary: Yes: WNL Neurological: Yes: WNL, Alert Psychiatric: Yes: WNL, Alert, Oriented Assessment/Plan chronic kidney disease- renal function near baseline, although seems trending slightly worse than baseline no history of decreased urine output- monitoring i and o now heart failure- extremely high bnp compared to baseline per labor relations consultant, cardiac function is worsening hypokalemia- replaced, has high requirements anemia- seems asymptomatic so far, but may be underlying contbutor to heart failure symptoms Plan- monitor i and o would start discussion re initiation of hemodialysis because diuretic therapy seems to be reaching its limits daily weights
[2017-10-21] MEDS: HEPARIN NA (PORCINE) 5,000 UNITS/ML 1ML VIAL SQ SCH ×2 (22:00→22:19)
[2017-10-21] MEDS ORDERED: DOXAZOSIN MESYLATE 4 MG TABLET PO SCH (22:00)
[2017-10-21] MEDS ORDERED: AZITHROMYCIN IVPB 500 MG in DEXTROSE 5%-WATER - 250 ML IVPB SCH (22:00)
[2017-10-21] MEDS ORDERED: CEFTRIAXONE 1 GM in DEXTROSE 5%-WATER - 50 ML IVPB SCH (22:00)
[2017-10-21] MEDS ORDERED: ATORVASTATIN CA 40 MG TABLET (FP) PO SCH (22:00)
[2017-10-22] MEDS ORDERED: PIPERACILLIN/TAZOBACTAM 3.375 GM VIAL IVPB ONE ×2 (00:55→08:35)
[2017-10-22] MEDS ORDERED: DEXTROSE 5%-WATER - 50 ML IVPB ONE ×2 (00:55→08:35)
[2017-10-22] MEDS: PIPERACILLIN/TAZOB 3.375 GM 3.375 GM in DEXTROSE 5%-WATER - 50 ML IVPB SCH ×2 (01:08→08:35)
[2017-10-22] MEDS: traMADol HCL 50 MG TABLET PO PRN ×2 (01:29→10:55)
[2017-10-22] MEDS: ACETAMINOPHEN 325 MG TABLET (FP) PO PRN (01:29)
[2017-10-22] MEDS: VANCOMYCIN 1,000 MG in DEXTROSE 5%-WATER - 250 ML IVPB SCH (04:02)
[2017-10-22] MEDS: HEPARIN NA (PORCINE) 5,000 UNITS/ML 1ML VIAL SQ SCH ×2 (05:23→13:08)
[2017-10-22 06:39] LABS: SERUM IRON SATURATION 4 % (15-55); TOTAL IRON BINDING CAPACITY 202 ug/dL (250-450); UIBC 194 ug/dL (131-425)
[2017-10-22 07:33] LABS: BASO % 0.1 % (0-2.0); EOS % 1.6 % (0-4.5); HEMATOCRIT 19.9 % (32.4-45.2); LYMPH % 4.2 % (8-40); MCH 30.7 pg (25.7-33.7); MCHC 33.5 g/dl (32.0-36.0); MEAN CELL VOLUME 91.8 fl (80-96); NEUT % 89.1 % (42.8-82.8); PLATELET COUNT 148 K/MM3 (134-434); RBC 2.16 M/mm3 (3.60-5.2); RDW 15.9 % (11.6-15.6); WHITE BLOOD COUNT 11.5 K/mm3 (4.0-10.0)
[2017-10-22 07:52] LABS: HEMOGLOBIN 6.7 GM/dL (10.7-15.3)
--- NOTE | 2017-10-22 08:01 | PN ---
Physical Exam: SUBJECTIVE: Patient seen and examined 8:00 am Hgb 6.7; transfuse 2 U PRBC now; waiting on K level OBJECTIVE: Vital Signs Period Temp Pulse Resp BP Sys/Li Pulse Ox Last 24 Hr 98.1 F-100.3 F 57-66 18-20 102-132/43-75 93 GENERAL: The patient is awake, alert, and fully oriented. LUNGS: CTA HEART: Regular rate and rhythm, S1, S2; +JVD ABDOMEN: Soft, nontender, nondistended, normoactive bowel sounds, no guarding, no rebound EXTREMITIES: 2+ pulses, warm, well-perfused, 1+ edema bilaterally NEUROLOGICAL: Cranial nerves II through XII grossly intact. Normal speech, gait not observed. Laboratory Results - last 24 hr 10/21/17 10/21/17 10/21/17 02:42 05:50 08:00 WBC RBC Hgb Hct MCV MCH MCHC RDW Plt Count MPV Absolute Neuts (auto) Neutrophils % Lymphocytes % Monocytes % Eosinophils % Basophils % Nucleated RBC % Sodium Potassium Chloride Carbon Dioxide Anion Gap BUN Creatinine Creat Clearance w eGFR Random Glucose Calcium Phosphorus Magnesium Iron 8 L TIBC 202 L Iron Saturation 4 L Troponin I Vitamin B12 520 Serum Folate 10 Urine Color Urine Appearance Urine pH Ur Specific [place] Urine Protein Urine Glucose (UA) Urine Ketones Urine Blood Urine Nitrite Urine Bilirubin Urine Urobilinogen Ur Leukocyte Esterase Urine WBC (Auto) Urine RBC (Auto) Ur Epithelial Cells Urine Bacteria Urine Yeast Blood Type AB POSITIVE Antibody Screen Negative Crossmatch See Detail 10/21/17 10/21/17 10/21/17 08:30 15:30 15:30 WBC RBC Hgb Hct MCV MCH MCHC RDW Plt Count MPV Absolute Neuts (auto) Neutrophils % Lymphocytes % Monocytes % Eosinophils % Basophils % Nucleated RBC % Sodium 135 L Potassium 4.5 Cancelled Chloride 100 Carbon Dioxide 26 Anion Gap 9 BUN 48 H Creatinine 5.2 H Creat Clearance w eGFR 9.21 Random Glucose 131 H Calcium 8.3 L Phosphorus 3.6 Magnesium 2.4 Iron TIBC Iron Saturation Troponin I 0.12 H Vitamin B12 Serum Folate Urine Color Urine Appearance Urine pH Ur Specific [place] Urine Protein Urine Glucose (UA) Urine Ketones Urine Blood Urine Nitrite Urine Bilirubin Urine Urobilinogen Ur Leukocyte Esterase Urine WBC (Auto) Urine RBC (Auto) Ur Epithelial Cells Urine Bacteria Urine Yeast Blood Type Antibody Screen Crossmatch 10/21/17 10/22/17 Unknown 06:20 WBC 11.5 H RBC 2.16 L Hgb 6.7 L* Hct 19.9 L MCV 91.8 MCH 30.7 MCHC 33.5 RDW 15.9 H Plt Count 148 MPV 9.0 D Absolute Neuts (auto) 10.3 Neutrophils % 89.1 H Lymphocytes % 4.2 L D Monocytes % 5.0 Eosinophils % 1.6 D Basophils % 0.1 Nucleated RBC % 0 Sodium Potassium Chloride Carbon Dioxide Anion Gap BUN Creatinine Creat Clearance w eGFR Random Glucose Calcium Phosphorus Magnesium Iron TIBC Iron Saturation Troponin I Vitamin B12 Serum Folate Urine Color Yellow Urine Appearance Slcloudy Urine pH 5.0 Ur Specific [place] 1.012 Urine Protein 2+ H Urine Glucose (UA) Negative Urine Ketones Negative Urine Blood 1+ H Urine Nitrite Negative Urine Bilirubin Negative Urine Urobilinogen 2.0 H Ur Leukocyte Esterase 2+ H Urine WBC (Auto) 28 Urine RBC (Auto) 5 Ur Epithelial Cells Rare Urine Bacteria Rare Urine Yeast Few Blood Type Antibody Screen Crossmatch Active Medications Generic Name Dose Route Start Last Admin Trade Name Freq PRN Reason Stop Dose Admin Acetaminophen 650 mg 10/21/17 10:18 10/22/17 01:29 Tylenol - PO 650 mg Q6H PRN Administration PAIN LEVEL 1-5 Aspirin 81 mg 10/21/17 10:00 10/21/17 10:28 Ecotrin - PO 81 mg DAILY BRET Administration Atorvastatin Calcium 40 mg 10/21/17 22:00 10/21/17 21:12 Lipitor - PO 40 mg HS BRET Administration Docusate Sodium 300 mg 10/21/17 22:00 10/21/17 21:12 Colace - PO 300 mg HS BRET Administration Doxazosin Mesylate 16 mg 10/21/17 22:00 10/21/17 21:12 Cardura - PO 16 mg HS BRET Administration Furosemide 80 mg 10/21/17 10:00 10/21/17 10:28 Lasix Injection - IVPUSH 80 mg DAILY BRET Administration Guaifenesin/Codeine Phosphate 10 ml 10/21/17 20:44 10/21/17 21:12 Robitussin Ac - PO 10 ml Q6H PRN Administration COUGH Heparin Sodium (Porcine) 5,000 unit 10/21/17 22:00 10/22/17 05:23 Heparin - SQ Not Given TID BRET Hydralazine HCl 50 mg 10/21/17 10:00 10/21/17 21:12 Apresoline - PO 50 mg BID BRET Administration Vancomycin HCl 1,000 mg/ 250 mls @ 166.667 mls/hr 10/21/17 16:30 Dextrose IVPB Q12H BRET Protocol Piperacillin Sod/Tazobactam 50 mls @ 100 mls/hr 10/21/17 18:00 Sod 3.375 gm/ Dextrose IVPB Q8H-IV BRET Protocol Piperacillin Sod/Tazobactam 50 mls @ 100 mls/hr 10/21/17 18:00 10/22/17 01:08 Sod 3.375 gm/ Dextrose IVPB 10/22/17 10:29 100 mls/hr Q8H-IV BRET Administration Labetalol HCl 600 mg 10/21/17 04:30 10/21/17 21:12 Normodyne - PO 600 mg BID BRET Administration Nifedipine 60 mg 10/21/17 04:30 10/21/17 21:12 Procardia Xl - PO 60 mg BID BRET Administration Polyethylene Glycol 17 gm 10/21/17 10:00 10/21/17 10:31 Miralax (For Daily Use) - PO 17 gm DAILY BRET Administration Potassium Chloride 40 meq 10/22/17 10:00 K-Dur - PO BID BRET Senna 1 tab 10/21/17 10:00 10/21/17 21:12 Senna - PO 1 tab BID BRET Administration Spironolactone 100 mg 10/21/17 10:00 10/21/17 10:18 Aldactone - PO Not Given DAILY BRET Tramadol HCl 50 mg 10/21/17 12:57 10/22/17 01:29 Ultram - PO 50 mg Q8H PRN Administration PAIN LEVEL 6-10 ASSESSMENT/PLAN:
[2017-10-22 08:19] LABS: ANION GAP 10 (8-16); BLOOD UREA NITROGEN 55 mg/dL (7-18); CALCIUM 8.2 mg/dL (8.5-10.1); CHLORIDE 96 mmol/L (98-107); CO2 26 mmol/L (21-32); GLUCOSE,RANDOM 92 mg/dL (74-106); MAGNESIUM 2.2 mg/dL (1.8-2.4); POTASSIUM 4.5 mmol/L (3.5-5.1); SODIUM 132 mmol/L (136-145)
[2017-10-22 08:24] LABS: ALK PHOS 186 U/L (45-117); BILIRUBIN,TOTAL 0.5 mg/dL (0.2-1.0); CREATININE 5.2 mg/dL (0.55-1.02); SGOT/AST 33 U/L (15-37); SGPT/ALT 61 U/L (12-78)
[2017-10-22] MEDS: POLYETHYLENE GLYCOL 3350 119 GM BTL PO SCH (09:00)
[2017-10-22] MEDS: ASPIRIN COATED 81 MG TABLET.EC PO SCH (09:03)
--- NOTE | 2017-10-22 09:38 | PN ---
Progress Note (short form) - Note Progress Note: s: no cp palps dizzy; mild sob and cough o: Vital Signs Period Temp Pulse Resp BP Sys/Li Pulse Ox Last 24 Hr 98.1 F-100.3 F 57-66 18-20 102-132/43-75 93-95 Constitutional: Yes: Well Nourished, No Distress Eyes: No: Sclera Icterus Respiratory: Yes: Regular, Rales (bases). No: Accessory Muscle Use, Wheezes Gastrointestinal: Yes: Normal Bowel Sounds. No: Distention, Hepatomegaly, Palpable Mass, Tenderness Cardiovascular: Yes: Regular Rate and Rhythm JVD: Yes Heart Sounds: Yes: S1, S2. No: Gallop Murmur: Yes: Systolic Murmur (HSM LLSB, decr with inspiration). No: Diastolic Murmur Musculoskeletal: Yes: Other (No kyphosis) Extremities: No: Cool, Cyanosis Edema: Yes (1+ ankles) Integumentary: No: Jaundice Neurological: Yes: Alert, Oriented (x3) Psychiatric: No: Agitated Current Medications Generic Name Dose Route Start Last Admin Trade Name Freq PRN Reason Stop Dose Admin Acetaminophen 650 mg 10/21/17 10:18 10/22/17 01:29 Tylenol - PO 650 mg Q6H PRN Administration PAIN LEVEL 1-5 Aspirin 81 mg 10/21/17 10:00 10/22/17 09:03 Ecotrin - PO 81 mg DAILY BRET Administration Atorvastatin Calcium 40 mg 10/21/17 22:00 10/21/17 21:12 Lipitor - PO 40 mg HS BRET Administration Docusate Sodium 300 mg 10/21/17 22:00 10/21/17 21:12 Colace - PO 300 mg HS BRET Administration Doxazosin Mesylate 16 mg 10/21/17 22:00 10/21/17 21:12 Cardura - PO 16 mg HS BRET Administration Furosemide 80 mg 10/21/17 10:00 10/21/17 10:28 Lasix Injection - IVPUSH 80 mg DAILY BRET Administration Guaifenesin/Codeine Phosphate 10 ml 10/21/17 20:44 10/21/17 21:12 Robitussin Ac - PO 10 ml Q6H PRN Administration COUGH Heparin Sodium (Porcine) 5,000 unit 10/21/17 22:00 10/22/17 05:23 Heparin - SQ Not Given TID BRET Hydralazine HCl 50 mg 10/21/17 10:00 10/21/17 21:12 Apresoline - PO 50 mg BID BRET Administration Vancomycin HCl 1,000 mg/ 250 mls @ 166.667 mls/hr 10/21/17 16:30 Dextrose IVPB Q12H BRET Protocol Piperacillin Sod/Tazobactam 50 mls @ 100 mls/hr 10/21/17 18:00 Sod 3.375 gm/ Dextrose IVPB Q8H-IV BRET Protocol Piperacillin Sod/Tazobactam 50 mls @ 100 mls/hr 10/21/17 18:00 10/22/17 08:35 Sod 3.375 gm/ Dextrose IVPB 10/22/17 10:29 100 mls/hr Q8H-IV BRET Administration Labetalol HCl 600 mg 10/21/17 04:30 10/21/17 21:12 Normodyne - PO 600 mg BID BRET Administration Nifedipine 60 mg 10/21/17 04:30 10/21/17 21:12 Procardia Xl - PO 60 mg BID BRET Administration Polyethylene Glycol 17 gm 10/21/17 10:00 10/22/17 09:00 Miralax (For Daily Use) - PO 17 gm DAILY BRET Administration Potassium Chloride 40 meq 10/22/17 10:00 10/22/17 09:01 K-Dur - PO 40 meq BID BRET Administration Senna 1 tab 10/21/17 10:00 10/21/17 21:12 Senna - PO 1 tab BID BRET Administration Spironolactone 100 mg 10/21/17 10:00 10/21/17 10:18 Aldactone - PO Not Given DAILY BRET Tramadol HCl 50 mg 10/21/17 12:57 10/22/17 01:29 Ultram - PO 50 mg Q8H PRN Administration PAIN LEVEL 6-10 Laboratory Last Values WBC 11.5 K/mm3 (4.0-10.0) H 10/22/17 06:20 RBC 2.16 M/mm3 (3.60-5.2) L 10/22/17 06:20 Hgb 6.7 GM/dL (10.7-15.3) L* 10/22/17 06:20 Hct 19.9 % (32.4-45.2) L 10/22/17 06:20 MCV 91.8 fl (80-96) 10/22/17 06:20 MCH 30.7 pg (25.7-33.7) 10/22/17 06:20 MCHC 33.5 g/dl (32.0-36.0) 10/22/17 06:20 RDW 15.9 % (11.6-15.6) H 10/22/17 06:20 Plt Count 148 K/MM3 (134-434) 10/22/17 06:20 MPV 9.0 fl (7.5-11.1) D 10/22/17 06:20 Absolute Neuts (auto) 10.3 # 10/22/17 06:20 Neutrophils % 89.1 % (42.8-82.8) H 10/22/17 06:20 Neutrophils % (Manual) 88.8 % (42.8-82.8) H 10/21/17 01:38 Band Neutrophils % 2.0 % 10/21/17 01:38 Lymphocytes % 4.2 % (8-40) L D 10/22/17 06:20 Lymphocytes % (Manual) 2.0 % (8-40) L 10/21/17 01:38 Monocytes % 5.0 % (3.8-10.2) 10/22/17 06:20 Monocytes % (Manual) 4 % (3.8-10.2) 10/21/17 01:38 Eosinophils % 1.6 % (0-4.5) D 10/22/17 06:20 Eosinophils % (Manual) 2.1 % (0-4.5) 10/21/17 01:38 Basophils % 0.1 % (0-2.0) 10/22/17 06:20 Basophils % (Manual) 1.0 % (0-2.0) 10/21/17 01:38 Myelocytes % (Man) 0 % (0-2) 10/21/17 01:38 Promyelocytes % (Man) 0 % (0-2) 10/21/17 01:38 Blast Cells % (Manual) 0 % (0-0) 10/21/17 01:38 Nucleated RBC % 0 % (0-0) 10/22/17 06:20 Metamyelocytes 0 % (0-2) 10/21/17 01:38 Hypochromia 0 10/21/17 01:38 Toxic Granulation 0 10/21/17 01:38 Dohle Bodies 0 10/21/17 01:38 Platelet Estimate Normal 10/21/17 01:38 Polychromasia 0 10/21/17 01:38 Poikilocytosis 0 10/21/17 01:38 Basophilic Stippling 0 10/21/17 01:38 Anisocytosis 0 10/21/17 01:38 Microcytosis 0 10/21/17 01:38 Macrocytosis 0 10/21/17 01:38 Spherocytes 0 10/21/17 01:38 Sickle Cells 0 10/21/17 01:38 Target Cells 0 10/21/17 01:38 Tear Drop Cells 0 10/21/17 01:38 Ovalocytes 0 10/21/17 01:38 Stomatocytes 0 10/21/17 01:38 Helmet Cells 0 10/21/17 01:38 Javier-Endicott Bodies 0 10/21/17 01:38 Prince Rings 0 10/21/17 01:38 David Cells 0 10/21/17 01:38 Acanthocytes (Spur) 0 10/21/17 01:38 Rouleaux 0 10/21/17 01:38 Fragmented RBCs 0 10/21/17 01:38 Schistocytes 0 10/21/17 01:38 PT with INR 14.60 SEC (9.7-13.0) H 10/21/17 02:42 INR 1.29 (0.82-1.09) H 10/21/17 02:42 PTT (Actin FS) 32.4 SECONDS (25.2-36.5) 10/21/17 02:42 Sodium 132 mmol/L (136-145) L 10/22/17 06:20 Potassium 4.5 mmol/L (3.5-5.1) 10/22/17 06:20 Chloride 96 mmol/L (98-107) L 10/22/17 06:20 Carbon Dioxide 26 mmol/L (21-32) 10/22/17 06:20 Anion Gap 10 (8-16) 10/22/17 06:20 BUN 55 mg/dL (7-18) H 10/22/17 06:20 Creatinine 5.2 mg/dL (0.55-1.02) H 10/22/17 06:20 Creat Clearance w eGFR 9.21 (>60) 10/22/17 06:20 Random Glucose 92 mg/dL (74-106) 10/22/17 06:20 Lactic Acid 1.2 mmol/L (0.0-2.0) 10/21/17 02:30 Calcium 8.2 mg/dL (8.5-10.1) L 10/22/17 06:20 Phosphorus 3.6 mg/dL (2.5-4.9) 10/21/17 15:30 Magnesium 2.2 mg/dL (1.8-2.4) 10/22/17 06:20 Iron 8 ug/dL (27-159) L 10/21/17 05:50 TIBC 202 ug/dL (250-450) L 10/21/17 05:50 Iron Saturation 4 % (15-55) L 10/21/17 05:50 Total Bilirubin 0.5 mg/dL (0.2-1.0) 10/22/17 06:20 AST 33 U/L (15-37) 10/22/17 06:20 ALT 61 U/L (12-78) 10/22/17 06:20 Alkaline Phosphatase 186 U/L (45-117) H D 10/22/17 06:20 Troponin I 0.12 ng/ml (0.00-0.05) H 10/21/17 08:30 B-Natriuretic Peptide 152724 pg/ml (5-125) H 10/21/17 01:33 Total Protein 5.0 g/dl (6.4-8.2) L 10/22/17 06:20 Albumin 2.0 g/dl (3.4-5.0) L 10/22/17 06:20 Triglycerides 87 mg/dL (35-160) 10/21/17 05:50 Cholesterol 106 mg/dL (50-200) 10/21/17 05:50 Total LDL Cholesterol 50 mg/dL (5-100) 10/21/17 05:50 HDL Cholesterol 41 mg/dL (40-60) 10/21/17 05:50 Vitamin B12 520 pg/ml (180-914) 10/21/17 08:00 Serum Folate 10 ng/ml (3.1-17.5) 10/21/17 08:00 TSH 1.01 uIU/ml (0.358-3.74) 10/21/17 01:38 Urine Color Yellow 10/21/17 Unknown Urine Appearance Slcloudy 10/21/17 Unknown Urine pH 5.0 (5.0-8.0) 10/21/17 Unknown Ur Specific [place] 1.012 (1.001-1.035) 10/21/17 Unknown Urine Protein 2+ (NEGATIVE) H 10/21/17 Unknown Urine Glucose (UA) Negative (NEGATIVE) 10/21/17 Unknown Urine Ketones Negative (NEGATIVE) 10/21/17 Unknown Urine Blood 1+ (NEGATIVE) H 10/21/17 Unknown Urine Nitrite Negative (NEGATIVE) 10/21/17 Unknown Urine Bilirubin Negative (<2.0 mg/dL) 10/21/17 Unknown Urine Urobilinogen 2.0 mg/dL (0.2-1.0) H 10/21/17 Unknown Ur Leukocyte Esterase 2+ (NEGATIVE) H 10/21/17 Unknown Urine WBC (Auto) 28 /hpf (3-5) 10/21/17 Unknown Urine RBC (Auto) 5 /hpf (0-3) 10/21/17 Unknown Ur Epithelial Cells Rare /HPF (FEW) 10/21/17 Unknown Urine Bacteria Rare /hpf (NONE SEEN) 10/21/17 Unknown Urine Yeast Few 10/21/17 Unknown Blood Type AB POSITIVE 10/21/17 02:42 Antibody Screen Negative 10/21/17 02:42 Crossmatch See Detail 10/21/17 02:42 ECG: NSR, LVH with repol abn. long QT--no signif change vs 10/14 except QT longer CXR: "new right sided infiltrate". images reviewed: no effusions or vascular redistribution. no R sided infiltrate appreciated (hilar markings ? enlarged PA) . + LLL faint airspace opacities echo 06/2017: mild lve. 1+ conc lvh. mild dec lv sys fn. mild-mod lat wall HK. mod inferolateral wall HK. 1+ lae. 1+ ar, mod mr, nl aortic root size. small pericardial effusion (images reviewed by dr taylor: no regionality to LV hypokinesis--there is global mild-moderate LV hypokinesis, EF 40-45%. moderate conc LVH. moderate MR) echo 03/2017: mod LVH (concentric); nl LVSF. nl RV. nl LA. mild AI/MR/TR. normal aortic root. small effusion chest CT 03/2017: Ascending aorta 4.1 cm. PA dilation (3.6 cm). tele: SR Assessment/Plan 37 yo with h/o secondary HTN (hyperaldo) in [address] Luigi Dunham and hypertensive specialist Dr John ([facility]) who p/w nausea vomiting and noted to have hypertensive urgency/emergency, troponin elevation and rangel. sob, cp: -sx's associated with fever/chills at home. fever 101 here. CXR my review suggests LLL infiltrate -suspect sx's sec to PNA--abx coverage per hospitalist -remainder of ID w/u per hospitalist - frequent nonspecific chest pain sx's when here in past with elevated BP, including 07/02--? mskel, ? hi filling pressure/chf sx. no signs cardiac ischemia at those time. - presently with no sx features suggestive of aorta dissection/aneurysm expansion - no signs ACS: troponin 0.1 x 2 = intermediate (nonspecific) range with flat trend (lower than prior admits--elevation is sec to chronically high filling pressures/signif LVH). ECG non-ischemic - cp has resolved--observe clinically hypertensive urgency, known hyperaldosteronism, hypertensive heart dz/renal dz: - HTN urgency admit here previously triggered by non-adherence to po meds due to naus and vomiting (was seeing GI for this at [place], with EGD scheduled at that time). same this time. per pt, GI has not found the etiology of her sx's, and ongoing suspicion may be med side effect. - ? labetalol 600mg caused nausea/vomiting--decr'd dose to 400 bid at that time. mult meds recently increased at that time as outpt, shortly prior to worsening of nausea. now back up to 600 bid as outpt - pt follows with HTN specialist at [place] (dr john), with prior inconclusive adrenal vein sampling - mult admits with HTN urgency triggered by relapsing naus/vomiting and inability to take PO meds--following with GI (at [place]) for this, ? med s.e. 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 + JVD to jaw, c/w volume overload with reduced GFR contributing - has been on lasix 80 po qd at home. - started lasix 80 iv qd here--observe wt trend, JVD, creatinine - [facility] has been deferring dialysis planning for now per pt--rec renal f/u here if creatinine bumps hypokalemia-->causing prolonged QT: - sec to hyperaldosternoism. - has required up to 140 meq qd K repletion in past - cont KCL 40 bid. trend labs aorta aneurysm: -4.1 cm ascending aorta on 03/2017 CT scan -sec to uncontrolled HTN -bp control, bp as doing -routine outpt aorta surveillance CKD: -creat running around 5.0 on recent visits, GFR 9 -stable here
[2017-10-22] MEDS: hydrALAZINE HCL 50 MG TABLET (FP) PO SCH (09:53)
[2017-10-22] MEDS: LABETALOL HCL 200 MG TABLET (FP) PO SCH (09:54)
[2017-10-22] MEDS ORDERED: POTASSIUM CHLORIDE TABS 10 MEQ TABLET.ER (FP) PO SCH (10:00)
--- NOTE | 2017-10-22 10:10 | EKG ---
Test Reason : Blood Pressure : / mmHG Vent. Rate : 076 BPM Atrial Rate : 076 BPM P-R Int : 166 ms QRS Dur : 102 ms QT Int : 478 ms P-R-T Axes : 047 -10 114 degrees QTc Int : 537 ms NORMAL SINUS RHYTHM POSSIBLE LEFT ATRIAL ENLARGEMENT LEFT VENTRICULAR HYPERTROPHY PROLONGED QT ABNORMAL ECG WHEN COMPARED WITH ECG OF 14-OCT-2017 20:29, NONSPECIFIC T WAVE ABNORMALITY NO LONGER EVIDENT IN INFERIOR LEADS QT HAS LENGTHENED Confirmed by LAQUIAT CASTANEDA MD ([id number]) on 10/22/2017 10:10:30 AM Referred By: Confirmed By:LAQUITA CASTANEDA MD
--- NOTE | 2017-10-22 10:13 | EKG ---
Test Reason : Blood Pressure : / mmHG Vent. Rate : 066 BPM Atrial Rate : 066 BPM P-R Int : 170 ms QRS Dur : 094 ms QT Int : 474 ms P-R-T Axes : 044 -16 108 degrees QTc Int : 496 ms NORMAL SINUS RHYTHM POSSIBLE LEFT ATRIAL ENLARGEMENT PROLONGED QT ABNORMAL ECG WHEN COMPARED WITH ECG OF 21-OCT-2017 00:42, NO SIGNIFICANT CHANGE WAS FOUND Confirmed by LEONEL ZHU, LAQUITA ([id number]) on 10/22/2017 10:13:07 AM Referred By: Gustavo PINON Confirmed By:LAQUITA CASTANEDA MD
--- NOTE | 2017-10-22 10:38 | PN ---
Progress Note, Physician Chief Complaint: ID Just dischareged after short admission few days for hypertesnive emergency. Signed out AMA Readmitted SOB fever cough and sweats Got 3 days Ceftriaxone pyuria Now NAD minimal couph no fever - Current Medication List Current Medications: Active Medications Acetaminophen (Tylenol -) 650 mg PO Q6H PRN PRN Reason: PAIN LEVEL 1-5 Last Admin: 10/22/17 01:29 Dose: 650 mg Aspirin (Ecotrin -) 81 mg PO DAILY [facility] Last Admin: 10/22/17 09:03 Dose: 81 mg Atorvastatin Calcium (Lipitor -) 40 mg PO HS [facility] Last Admin: 10/21/17 21:12 Dose: 40 mg Docusate Sodium (Colace -) 300 mg PO HS [facility] Last Admin: 10/21/17 21:12 Dose: 300 mg Doxazosin Mesylate (Cardura -) 16 mg PO HS [facility] Last Admin: 10/21/17 21:12 Dose: 16 mg Furosemide (Lasix Injection -) 80 mg IVPUSH DAILY [facility] Last Admin: 10/21/17 10:28 Dose: 80 mg Guaifenesin/Codeine Phosphate (Robitussin Ac -) 10 ml PO Q6H PRN PRN Reason: COUGH Last Admin: 10/21/17 21:12 Dose: 10 ml Heparin Sodium (Porcine) (Heparin -) 5,000 unit SQ TID [facility] Last Admin: 10/22/17 05:23 Dose: Not Given Hydralazine HCl (Apresoline -) 50 mg PO BID [facility] Last Admin: 10/22/17 09:53 Dose: Not Given Ceftriaxone Sodium (Ceftriaxone 2 Gm-D5w Bag) 2 gm in 50 mls @ 100 mls/hr IVPB DAILY [facility]; Protocol Labetalol HCl (Normodyne -) 600 mg PO BID [facility] Last Admin: 10/22/17 09:54 Dose: Not Given Nifedipine (Procardia Xl -) 60 mg PO BID [facility] Last Admin: 10/21/17 21:12 Dose: 60 mg Polyethylene Glycol (Miralax (For Daily Use) -) 17 gm PO DAILY [facility] Last Admin: 10/22/17 09:00 Dose: 17 gm Potassium Chloride (K-Dur -) 40 meq PO BID [facility] Last Admin: 10/22/17 09:01 Dose: 40 meq Senna (Senna -) 1 tab PO BID [facility] Last Admin: 10/21/17 21:12 Dose: 1 tab Spironolactone (Aldactone -) 100 mg PO DAILY [facility] Last Admin: 10/21/17 10:18 Dose: Not Given Tramadol HCl (Ultram -) 50 mg PO Q8H PRN PRN Reason: PAIN LEVEL 6-10 Last Admin: 10/22/17 01:29 Dose: 50 mg - Objective Vital Signs: Vital Signs Temperature 98.4 F 10/22/17 09:00 Pulse Rate 57 L 10/22/17 09:00 Respiratory Rate 20 10/22/17 09:00 Blood Pressure 108/57 10/22/17 09:00 O2 Sat by Pulse Oximetry (%) 95 10/22/17 09:00 Constitutional: Yes: No Distress Eyes: Yes: WNL, Conjunctiva Clear, Occular Prosthesis HENT: Yes: WNL Cardiovascular: Yes: Regular Rate and Rhythm, S1, S2. No: Murmur Respiratory: Yes: WNL, Regular, CTA Bilaterally. No: Rales, Rhonchi, Wheezes Gastrointestinal: Yes: Soft. No: Tenderness Edema: No Labs: CBC, BMP 10/22/17 06:20 10/22/17 06:20 INR, PTT INR 1.29 (0.82-1.09) H 10/21/17 02:42 Problem List - Problems (1) Pneumonia Code(s): J18.9 - PNEUMONIA, UNSPECIFIED ORGANISM (2) CKD (chronic kidney disease) Code(s): N18.9 - CHRONIC KIDNEY DISEASE, UNSPECIFIED Qualifiers: Chronic kidney disease stage: stage 4 (severe) Qualified Code(s): N18.4 - Chronic kidney disease, stage 4 (severe) Assessment/Plan Microbiology 04/02/17 10:57 Urine - Urine Hartman Urine Culture - Final NO GROWTH OBTAINED 04/02/17 10:21 Nasopharyngeal Swab Respiratory Virus (PCR) - Final 04/02/17 03:14 Nasopharyngeal Swab Influenza Types A,B Antigen (EFREN) - Final 04/02/17 03:14 Nasopharyngeal Swab - Final 10/13/17 16:15 Urine - Urine Clean Catch Urine Culture - Final 10/13/17 11:36 Nasopharyngeal Swab Influenza Types A,B Antigen - Final 10/13/17 11:36 Nasopharyngeal Swab - Final 10/21/17 Unknown Urine - Urine Clean Catch Urine Culture - Preliminary 10/21/17 01:33 Blood - Peripheral Venous Blood Culture - Preliminary NO GROWTH OBTAINED AFTER 24 HOURS, INCUBATION TO CONTINUE FOR 4 DAYS. 10/21/17 01:33 Blood - Peripheral Venous Blood Culture - Preliminary NO GROWTH OBTAINED AFTER 24 HOURS, INCUBATION TO CONTINUE FOR 4 DAYS. Laboratory Tests 10/21/17 10/21/17 10/22/17 02:42 05:50 06:20 WBC 12.3 H Hgb 7.1 L Hct 21.1 L Plt Count 141 INR 1.29 H BUN 55 H Creatinine 5.2 H Creat Clearance w eGFR 9.21 Total Bilirubin 0.5 AST 33 ALT 61 Alkaline Phosphatase 186 H D Assessment Pneumonia Brief few days inpatient before admit now Not to ill appearing NAD afebrile maybe po antibiotic Plan For now Ceftriaxone 2 grs [place] ZHU
--- NOTE | 2017-10-22 12:14 | CONS ---
DATE OF CONSULTATION: DATE OF DICTATION: 10/22/2017 This is a 37-year-old female with a history of multiple co-morbidities including poorly-controlled hypertension, for which she was recently discharged after management for a hypertensive emergency and apparently signed out AMA only several days ago. 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 Following discharge, she was seen in the [place] clinic and apparently reported fever with sweats and a severe cough, nonproductive, with some shortness of breath. In the emergency room, some left-sided chest discomfort was mentioned. She has recently been seen by Cardiology during her recent admission to the ICU for hypertensive crisis. Her cardiogram showed a normal sinus rhythm with LVH. Temperature on admission was 101 and imaging showed a possible left lower lobe infiltrate. She was given doses of vancomycin, ceftriaxone, and Zosyn. I reviewed the pharmacy medical record indicating that she had gotten 2 doses of ceftriaxone for presumed urinary tract infection during her recent admission. Her cultures, including urine, were no growth. Past medical history includes Conn syndrome, chronic kidney disease, hypertension. MEDICATIONS: Labetalol, doxazosin, Lipitor, Lasix, hydralazine, nifedipine, spironolactone. ALLERGIES: None known. SOCIAL HISTORY: [place] [employer] . HIV negative in the past. Former heavy smoker. Denies substance abuse. FAMILY HISTORY: Reviewed and noncontributory. REVIEW OF SYSTEMS: Respiratory: Mild cough, mild shortness of breath currently. No hemoptysis. Cardiac: Chest on admission, but none now. No palpitations, lightheadedness. Gastrointestinal: No abdominal pain, nausea, vomiting, diarrhea. Genitourinary: No dysuria, hematuria, urinary frequency. PHYSICAL EXAMINATION: General: A well-nourished appearing woman in no acute distress. Vital Signs: Her T-max was 100.3, currently 98.4. T-max 101, currently 98.4. Pulse 57. Blood pressure 108/57. Respirations 20. Neck: Supple. No adenopathy. Lungs: Clear to percussion and auscultation. Heart: S1, S2. Regular rhythm without murmur. Abdomen: Soft, nontender, without hepatosplenomegaly. Extremities: Without clubbing, cyanosis or edema. White count 11.5, hemoglobin 6.7, platelets 148. Differential on October 21: 92% polys, 2 bands. INR 1.29, BUN 55, creatinine 5.2, bilirubin 0.5, AST 33, alkaline phosphatase 186, TNI 0.12. Urinalysis with 28 RBCs, 2+ leukocyte esterase. Two sets of blood cultures pending. Urine culture: No growth. Abdominal CT scan was reviewed, shows possible lingular consolidation, minimal bilateral pleural effusions, mild to marked cardiomegaly, a small pericardial effusion, hepatomegaly, no evidence of small-bowel obstruction, free fluid in the cul-de-sac. ASSESSMENT: A 37-year-old female admitted with fever, cough, some shortness of breath and sweats, clinically thought to have pneumonia, currently not acutely ill. Would empirically treat her with ceftriaxone 2 g IV q.24 hours. Suggest HIV testing. BENNY DE LA ROSA M.D. [id number]
--- NOTE | 2017-10-22 12:25 | PN ---
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 extremity edema, chest pain and SOB. Currently she has a cough and she is being treated for volume overload and hypokalemia from the Conn syndrome. There are no symptoms of external blood loss - had a hysterectomy 3 years ago and obviously has had no vaginal bleeding, no hematochezia, no jeramie, no hematemesis. Her diet is good. PHYSICAL EXAMINATION Vital Signs Period Temp Pulse Resp BP Sys/Li Pulse Ox Last 24 Hr 98.1 F-100.3 F 57-66 18-20 102-132/43-75 93-95 Has Hand cramping CBC, BMP 10/22/17 06:20 18 06:20 CT Abd/Pelvis: small b/l pleural effusions, mild atelectasis in lower lobes and lingula. There is cardiomegaly, mild pericardial effusion noted. Hepatomegaly noted with scattered cystic liver findings. Mild free fluid in peritoneum. Moderate amount of stool in colon ASSESSMENT/PLAN: 37 year old female hx of conn syndrome, HTN, CKD presenting for volume overload and being treated. Anemia Most likely Anemia of CKD and fe deficiency. [normocytic, normochromic anemia] -Last ferritin was 34 suggesting poor iron stores and her labs are consistent with iron deficiency -would suggest GI workup jeffrey. colonoscopy for incipient blood loss (s/p hysterectomy) -start FeSO4 tid after constipation resolves -agree with 1 unit of blood transfusion -she will need Epo once Fe stores are repleted - usual goal is a ferritin greater than 200 -iv iron tomorrow.
[2017-10-22] MEDS: NIFEdipine E.R 60 MG TABLET (UD) PO SCH (13:09)
[2017-10-22] MEDS: SPIRONOLACTONE 25 MG TABLET (FP) PO SCH (13:09)
[2017-10-22] MEDS: SENNOSIDES 8.6MG TABLET (FP) PO SCH (13:09)
[2017-10-22 14:14] VITALS: BP 129/88; PULSE 63; TEMP 98.3
--- NOTE | 2017-10-22 16:40 | DS ---
Physical Exam: Patient refused physical exam. Signed out AMA. See below. Laboratory Results - last 24 hr 10/21/17 10/21/17 10/21/17 02:42 05:50 15:30 WBC RBC Hgb Hct MCV MCH MCHC RDW Plt Count MPV Absolute Neuts (auto) Neutrophils % Lymphocytes % Monocytes % Eosinophils % Basophils % Nucleated RBC % Sodium 135 L Potassium 4.5 Chloride 100 Carbon Dioxide 26 Anion Gap 9 BUN 48 H Creatinine 5.2 H Creat Clearance w eGFR 9.21 Random Glucose 131 H Calcium 8.3 L Phosphorus 3.6 Magnesium 2.4 Iron 8 L TIBC 202 L Iron Saturation 4 L Total Bilirubin AST ALT Alkaline Phosphatase Total Protein Albumin Blood Type AB POSITIVE Antibody Screen Negative Crossmatch See Detail 10/21/17 10/22/17 10/22/17 15:30 06:20 06:20 WBC 11.5 H RBC 2.16 L Hgb 6.7 L* Hct 19.9 L MCV 91.8 MCH 30.7 MCHC 33.5 RDW 15.9 H Plt Count 148 MPV 9.0 D Absolute Neuts (auto) 10.3 Neutrophils % 89.1 H Lymphocytes % 4.2 L D Monocytes % 5.0 Eosinophils % 1.6 D Basophils % 0.1 Nucleated RBC % 0 Sodium 132 L Potassium Cancelled 4.5 Chloride 96 L Carbon Dioxide 26 Anion Gap 10 BUN 55 H Creatinine 5.2 H Creat Clearance w eGFR 9.21 Random Glucose 92 Calcium 8.2 L Phosphorus Magnesium 2.2 Iron TIBC Iron Saturation Total Bilirubin 0.5 AST 33 ALT 61 Alkaline Phosphatase 186 H D Total Protein 5.0 L Albumin 2.0 L Blood Type Antibody Screen Crossmatch HOSPITAL COURSE: Date of Admission:10/21/17 Date of AMA: 37 year-old female with a PMH significant for 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 Hospital day #1: An extensive workup ensued, as follows: Sepsis likely secondary to HCAP --Tm 101.0, WBC 12.3, CT showed consolidation in LLL --normotensive, holding anti-hypertensives --have not aggressively fluid resuscitated due to heart failure --hold diuretics --broaden abx coverage to Vanc and Zosyn --ID consult requested Pyuria --asymptomatic --culture pending --broadly covered anyway Hyperaldosteronism/Conn Syndrome Hypertensive urgency --h/o difficult to control hypertension; last admission was hypertensive, then became hypotensive and required ICU admission --hypertensive on admission 184/118, now normotensive off meds --close monitoring Hypokalemia secondary to aldosteronism Prolonged QTc --repleted 2.8-->4.5 --has required up to 140 meq qd K repletion in past --aggressive repletion and monitoring --avoid QT prolonging agents CKD --Cr 4.9-->5.2 ~baseline but trending up --concern for low UOP, only 200cc's after IV Lasix 80mg but patient insisted she had unmeasured output; did not tolerate attempted vale placement --followed at [facility] where renal doctor has been deferring dialysis for as long as possible --seen and evaluated here by renal Dr. Vazquez, would continue discussion about initiation of HD as diuretic therapy seems to be reaching its limits --strict I&Os, daily weights Acute on chronic diastolic and systolic heart failure --BNP >150,000 is more than 2x value in 06/2017; +JVD; +lower extremity edema --got one dose IV Lasix 80mg this morning; hold diuretics for now secondary to sepsis and since respiratory status remains stable --repeat cxr in am Chest pain --pleuritic in nature, associated with fever, cough, likely secondary to HCAP --flat-trending troponins, ECG not suggestive of ischemic event --seen and evaluated by cardiology, low suspicion for ACS Constipation --CTAP: no evidence of SBO; moderate amount of fecal residue --enema, bowel regimen Normocytic, normochromic anemia --Hgb 7.1 --seen and evaluated by heme, most likely anemia of chronic disease --iron studies, B12 and folate pending --2 units PRBC on hold Hospital day #2 On the morning of hospital day #2 Hgb dropped to 6.7. Two units PRBC were ordered, one was given. At mid-morning, after completion of the first unit, patient was seen. She refused to be examined. She refused all medical care. She refused a blood draw to check her Hgb level. Fully advised of the serious risks including . Demanded to leave. Signed out AMA. Minutes to complete discharge: 35 Discharge Summary Reason For Visit: ANEMIA/ALDOSTERONISM/ACUTE ON CHRONIC DIASTOLIC - Instructions Referrals: ON STAFF,NOT [Primary Care Provider] - Disposition: AGAINST MEDICAL ADVICE - Home Medications Comprehensive Discharge Medication List: Ambulatory Orders Labetalol HCl [Normodyne -] 300 mg PO BID 04/01/17 Clonidine Patch [Catapres Tts Patch -] 0.3 mg TD WEEKLY 04/02/17 Doxazosin Mesylate 8 mg PO BID 04/02/17 Atorvastatin Ca [Lipitor] 40 mg PO HS #30 tablet 06/20/17 Furosemide [Lasix] 80 mg PO DAILY 10/13/17 Hydralazine HCl 50 mg PO BID 10/13/17 Nifedipine [Procardia Xl] 60 mg PO BID 10/13/17 Spironolactone [Aldactone -] 50 mg PO BID 10/13/17 This patient is new to me today: No Emergency Visit: Yes ED Registration Date: 10/21/17 Care time: The patient presented to the Emergency Department on the above date and was hospitalized for further evaluation of their emergent condition. Critical Care patient: No - Discharge Referral Referred to [facility] Med [facility] No
[2017-10-23] MEDS ORDERED: CEFTRIAXONE 2 GM in DEXTROSE 5%-WATER 100 ML IVPB SCH (10:00)
[2017-10-23] MEDS ORDERED: CEFTRIAXONE 2 GM-D5W BAG 2 GM/50 ML BAG IVPB SCH (10:00)
--- NOTE | 2017-10-29 16:21 | HOSP ---
Subjective - Review of Symptoms Events since last encounter: Called and spoke to the patient. Advised her one blood culture bottle was positive for an organism called Claudette and requested patient come back to the hospital to be further tested. Patient stated she had already gone to the [facility], was prescribed antibiotics there, and she was feeling better. She did not want to come back to [facility]. Physical Examination Vital Signs: Vital Signs Temperature 98.3 F 10/22/17 14:14 Pulse Rate 63 10/22/17 14:14 Respiratory Rate 20 10/22/17 14:14 Blood Pressure 129/88 10/22/17 14:14 O2 Sat by Pulse Oximetry (%) 95 10/22/17 09:00 Labs: CBC, BMP 10/22/17 06:20 10/22/17 06:20
== END 2017-10-22 16:04 | disposition left against medical advice (07) | DRG 663 ==
LOC: JER 00:40 → JERBED 03:49 → J4S 08:30
PROVIDERS: ADMIT Internal Medicine; ATTEND Nurse Practitioner Acute Care
PROC: 30233N1 Transfusion of Nonautologous Red Blood Cells into Peripheral Vein, Percutaneous Approach (ICD-10-PCS; principal; 2017-10-22)
DX: D50.9 Iron deficiency anemia, unspecified (principal); N18.4 Chronic kidney disease, stage 4 (severe); I16.0 Hypertensive urgency; E87.6 Hypokalemia; I13.0 Hypertensive heart and chronic kidney disease with heart failure and stage 1 through stage 4 chronic kidney disease, or unspecified chronic kidney disease; I50.33 Acute on chronic diastolic (congestive) heart failure; R07.9 Chest pain, unspecified; K59.00 Constipation, unspecified; J18.9 Pneumonia, unspecified organism; E88.09 Other disorders of plasma-protein metabolism, not elsewhere classified; Z91.14 Patient's other noncompliance with medication regimen; D63.1 Anemia in chronic kidney disease; E87.70 Fluid overload, unspecified; N17.9 Acute kidney failure, unspecified
CPT/HCPCS: 36415; 36430; 71045-TC-FY; 74176-TC; 80048; 80053; 80061; 81003; 81015; 82607; 82746; 83540; 83550; 83605; 83721; 83735; 83880; 84100; 84443; 84484; 85025; 85027; 85610; 85730; 86922; 87040; 87077; 87086; 93005; 93010; 99285-25; J0131; J0885; J1644; J1756; P9038; P9058

== ENCOUNTER 2017-12-27 04:23 | Inpatient (IN) | payer OTHER ==
[2017-12-27] MEDS ORDERED: LABETALOL HCL 5 MG/1 ML (100MG/20 ML VIAL) IVPUSH ONE ×2 (04:41→05:35)
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
[2017-12-27] MEDS ORDERED: morphine CARPU-JECT 4 MG/1 ML DISP.SYRIN IVPUSH ONE ×2 (04:44→07:02)
[2017-12-27] MEDS ORDERED: ONDANSETRON 4 MG/2 ML VIAL IVPUSH ONE (04:44)
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
[2017-12-27] MEDS ORDERED: LABETALOL HCL 5 MG/1 ML (200MG/40ML VIAL) IVPB ONE (05:06)
[2017-12-27] MEDS ORDERED: morphine SULFATE 4 MG/ML VIAL ONE ×2 (05:06→07:06)
[2017-12-27] MEDS ORDERED: ONDANSETRON 4 MG/2 ML VIAL ONE (05:07)
[2017-12-27 05:12] LABS: BASO % 0.4 % (0-2.0); EOS % 1.4 % (0-4.5); HEMATOCRIT 24.5 % (32.4-45.2); HEMOGLOBIN 8.3 GM/dL (10.7-15.3); LYMPH % 10.9 % (8-40); MCH 30.9 pg (25.7-33.7); MCHC 33.8 g/dl (32.0-36.0); MEAN CELL VOLUME 91.4 fl (80-96); MEAN PLT VOLUME 8.6 fl (7.5-11.1); MONO % 2.8 % (3.8-10.2); NEUT % 84.5 % (42.8-82.8); PLATELET COUNT 243 K/MM3 (134-434); RBC 2.68 M/mm3 (3.60-5.2); RDW 15.8 % (11.6-15.6); WHITE BLOOD COUNT 5.8 K/mm3 (4.0-10.0)
[2017-12-27 05:34] LABS: ALBUMIN 2.8 g/dl (3.4-5.0); ANION GAP 10 MMOL/L (8-16); BILIRUBIN,TOTAL 0.8 mg/dL (0.2-1.0); BLOOD UREA NITROGEN 66 mg/dL (7-18); CHLORIDE 100 mmol/L (98-107); CO2 26 mmol/L (21-32); GLUCOSE,RANDOM 90 mg/dL (74-106); LIPASE 115 U/L (73-393); PHOSPHOROUS 4.8 mg/dL (2.5-4.9); SGPT/ALT 85 U/L (12-78); SODIUM 136 mmol/L (136-145); TOT PROT 5.9 g/dl (6.4-8.2)
[2017-12-27 05:35] LABS: ALK PHOS 85 U/L (45-117)
[2017-12-27 05:36] LABS: MAGNESIUM 2.1 mg/dL (1.8-2.4); SGOT/AST 60 U/L (15-37)
[2017-12-27] MEDS ORDERED: LABETALOL HCL INJECTION 1,000 MG in SODIUM CHLORIDE 800 ML IV SCH (06:15)
[2017-12-27] MEDS ORDERED: cloNIDine HCL 0.1 MG TABLET PO ONE (07:57)
[2017-12-27] MEDS ORDERED: cloNIDine HCL 0.1 MG TABLET ONE (07:58)
--- NOTE | 2017-12-27 07:58 | PDOC ---
*Physical Exam - Vital Signs Last Vital Signs Temp Pulse Resp BP Pulse Ox 98.4 F 68 16 179/141 98 12/27/17 07:35 12/27/17 07:35 12/27/17 07:35 12/27/17 07:35 12/27/17 07:35 - Physical Exam Comments: 12/27/17 07:58 Patient reassessed. Patient is currently on a labetalol drip at 2 mg/m with MHP of 148. Will administer clonidine 0.1 mg by mouth. Awaiting transfer to the ICU. ED Treatment Course - LABORATORY CBC & Chemistry Diagram: 12/27/17 05:00 12/27/17 05:00 - ADDITIONAL ORDERS Additional order review: Laboratory Results 12/27/17 12/27/17 05:00 05:00 Sodium 136 Potassium 3.0 L Chloride 100 Carbon Dioxide 26 Anion Gap 10 BUN 66 H Creatinine 5.0 H Creat Clearance w eGFR 9.63 Random Glucose 90 Calcium 9.0 Phosphorus 4.8 Magnesium 2.1 Total Bilirubin 0.8 AST 60 H ALT 85 H Alkaline Phosphatase 85 Creatine Kinase 267 H Creatine Kinase Index 1.1 CK-MB (CK-2) 3.06 Troponin I 0.28 H Total Protein 5.9 L Albumin 2.8 L Lipase 115 Serum , Qual Negative 12/27/17 05:00 RBC 2.68 L MCV 91.4 MCHC 33.8 RDW 15.8 H MPV 8.6 Neutrophils % 84.5 H Lymphocytes % 10.9 D Monocytes % 2.8 L Eosinophils % 1.4 Basophils % 0.4 D - Medications Given in the ED: ED Medications Discontinued Medications Generic Name Dose Route Start Last Admin Trade Name Rita PRN Reason Stop Dose Admin Labetalol HCl 10 mg 12/27/17 04:41 12/27/17 05:18 Normodyne Injection - IVPUSH 12/27/17 04:42 10 mg ONCE ONE Administration Labetalol HCl 20 mg 12/27/17 05:35 12/27/17 05:39 Normodyne Injection - IVPUSH 12/27/17 05:36 20 mg ONCE ONE Administration Morphine Sulfate 4 mg 12/27/17 04:44 12/27/17 05:18 Morphine Injection - IVPUSH 12/27/17 04:45 4 mg ONCE ONE Administration Ondansetron HCl 4 mg 12/27/17 04:44 12/27/17 05:19 Zofran Injection IVPUSH 12/27/17 04:45 4 mg ONCE ONE Administration *DC/Admit/Observation/Transfer Diagnosis at time of Disposition: Hypertensive emergency, Hypokalemia - Discharge Dispostion Condition at time of disposition: Critical - Referrals - Patient Instructions - Post Discharge Activity
[2017-12-27] MEDS ORDERED: KCL 10 MEQ IVPB 20 MEQ/200 ML INFUS.BAG IVPB ONE (08:08)
[2017-12-27] MEDS ORDERED: POTASSIUM CHLORIDE ORAL LIQUID 20 MEQ/15 ML ONE (08:14)
[2017-12-27] MEDS ORDERED: POTASSIUM CHLORIDE TABS 20 MEQ TABLET.ER (FP) PO ONE ×2 (08:15→08:30)
[2017-12-27] MEDS: KCL 10 MEQ IVPB 10 MEQ/100 ML INFUS.BAG IVPB SCH (08:25)
[2017-12-27] MEDS: HEPARIN NA (PORCINE) 5,000 UNITS/ML 1ML VIAL SQ SCH ×3 (08:39→21:17)
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
[2017-12-27] MEDS: NICARDIPINE 25 MG in DEXTROSE 5%-WATER - 240 ML IVPB SCH (10:00)
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
--- NOTE | 2017-12-27 11:49 | EKG ---
Test Reason : Blood Pressure : / mmHG Vent. Rate : 082 BPM Atrial Rate : 082 BPM P-R Int : 192 ms QRS Dur : 106 ms QT Int : 464 ms P-R-T Axes : 050 025 113 degrees QTc Int : 542 ms NORMAL SINUS RHYTHM POSSIBLE LEFT ATRIAL ENLARGEMENT NONSPECIFIC ST AND T WAVE ABNORMALITY PROLONGED QT ABNORMAL ECG WHEN COMPARED WITH ECG OF 21-OCT-2017 10:01, NONSPECIFIC T WAVE ABNORMALITY HAS REPLACED INVERTED T WAVES IN ANTERIOR LEADS Confirmed by DARLING LEÓN MD ([id number]) on 12/27/2017 11:48:45 AM Referred By: Confirmed By:DARLING LEÓN MD
--- NOTE | 2017-12-27 12:22 | PN ---
Teaching Attending Note Name of Resident: Ping Reinoso ATTENDING PHYSICIAN STATEMENT I saw and evaluated the patient. I reviewed the resident's note and discussed the case with the resident. I agree with the resident's findings and plan as documented. SUBJECTIVE: Pt seen and examined in the ICU. Labetalol gtt changed to cardene gtt. States headache and nausea improving. OBJECTIVE: Vital Signs Period Temp Pulse Resp BP Sys/Li Pulse Ox Last 24 Hr 98.1 F-98.4 F 63-84 12-20 177-214/137-152 97-100 Intake & Output 12/24/17 12/25/17 12/26/17 12/27/17 23:59 23:59 23:59 23:59 Weight 68.946 kg Gen: somnolent but arousable Heart: RRR Lung: decreased breath sounds at the bases Abd: soft, nontender Ext: no edema CBC, BMP 12/27/17 05:00 Active Medications Atorvastatin Calcium (Lipitor -) 40 mg PO HS BRET Chlorhexidine Gluconate (Hibiclens For Decolonization -) 1 applic TP HS BRET Clonidine HCl (Catapres Tts Patch -) 0.4 mg TD Q7D@1000 BRET Heparin Sodium (Porcine) (Heparin -) 5,000 unit SQ TID BRET Last Admin: 12/27/17 08:39 Dose: 5,000 unit Nicardipine HCl 25 mg/ (Dextrose) 250 mls @ 25 mls/hr IVPB TITR BRET; Protocol Last Titration: 12/27/17 10:16 Dose: 5 mg/hr, 50 mls/hr Mupirocin (Bactroban Ointment (For Decolonization) -) 1 applic NS BID [facility] Stop: 01/01/18 09:59 ASSESSMENT AND PLAN: Hypertensive Urgency/Emergency +Troponins LV Systolic/Diastolic Dysfunction Mitral Regurgitation Hyperaldosteronism Aortic Aneurysm CKD - resume PO BP meds as tolerated - titrate/taper cardene gtt - PO as tolerated - trend cardiac enzymes - O2 to keep SpO2>90% - DVT prophylaxis - ICU monitoring while on cardene gtt critical care time spent in reviewing chart, evaluating patient and formulating plan 35 min
[2017-12-27] MEDS ORDERED: PT OWN MED DRAWER 7, Y5N ONE ×2 (12:40→19:12)
[2017-12-27] MEDS: MUPIROCIN 2% TOPICAL OINTMENT FOR DECOLONIZATION NS SCH ×2 (12:45→21:17)
[2017-12-27 12:51] LABS: MAGNESIUM 2.2 mg/dL (1.8-2.4)
[2017-12-27] MEDS ORDERED: cloNIDine-TTS 0.2 MG/24 HOURS PATCH.TDWK TD SCH (13:00)
[2017-12-27 13:01] LABS: POTASSIUM 2.9 mmol/L (3.5-5.1)
[2017-12-27] MEDS ORDERED: POTASSIUM CHLORIDE ORAL LIQUID 20 MEQ/15 ML PO ONE ×2 (13:15→18:05)
--- NOTE | 2017-12-27 13:37 | CONSULT ---
Consult Consult Specialty:: Nephrology Reason for Consultation:: CKD and HTN - History of Present Illness Chief Complaint: body aches, nausea and vomitting History of Present Illness: Pt is a 37 year old female with pmhx of conn/hyperaldo, CKD, CHF, CAD, HTN and non compliance who presents to the ER with generalized body aches, nausea and vomiting. She was found to have elevated creatinine and I was called to evaluate her. She was also found to be hypertensive and admitted to the ICU. She is awake but drowsy as she had just received morphine for pain. She says she has not been very compliant with her bp meds. She denies abdominal pain or chest pain. SHe denies palpitations. She denies dysuria or hematuria. 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 History of Recent Travel: No Home Medications - Allergies Allergies/Adverse Reactions: Allergies Allergy/AdvReac Type Severity Reaction Status Date / Time No Known Allergies Allergy Verified 12/27/17 04:36 - Home Medications Home Medications: Ambulatory Orders Labetalol HCl [Normodyne -] 300 mg PO BID 04/01/17 Clonidine Patch [Catapres Tts Patch -] 0.3 mg TD WEEKLY 04/02/17 Doxazosin Mesylate 8 mg PO BID 04/02/17 Atorvastatin Ca [Lipitor] 40 mg PO HS #30 tablet 06/20/17 Furosemide [Lasix] 80 mg PO DAILY 10/13/17 Hydralazine HCl 50 mg PO BID 10/13/17 Nifedipine [Procardia Xl] 60 mg PO BID 10/13/17 Spironolactone [Aldactone -] 50 mg PO BID 10/13/17 Family Disease History - Family Disease History Family Disease History: Other: Grandparent (htn), Mother (htn) Review of Systems - Review of Systems Constitutional: reports: Malaise Eyes: reports: No Symptoms HENT: reports: No Symptoms Neck: reports: No Symptoms Cardiovascular: denies: Chest Pain, Edema, Palpitations, Shortness of Breath Respiratory: reports: No Symptoms Gastrointestinal: reports: Abdominal Pain, Nausea, Vomiting Musculoskeletal: reports: Other (body pain) Integumentary: reports: No Symptoms Neurological: reports: No Symptoms Endocrine: reports: No Symptoms Hematology/Lymphatic: reports: No Symptoms Physical Exam Vital Signs: Vital Signs Temperature 98.3 F 12/27/17 10:08 Pulse Rate 57 L 12/27/17 12:37 Respiratory Rate 12 12/27/17 10:08 Blood Pressure 130/101 12/27/17 12:37 O2 Sat by Pulse Oximetry (%) 100 12/27/17 10:21 Constitutional: Yes: Calm Eyes: Yes: Conjunctiva Clear HENT: Yes: Atraumatic Neck: Yes: Supple Cardiovascular: Yes: S1, S2 Respiratory: Yes: CTA Bilaterally Gastrointestinal: Yes: Normal Bowel Sounds, Soft Renal/: Yes: WNL Musculoskeletal: Yes: WNL Edema: No Integumentary: Yes: Tattoos Neurological: Yes: Oriented Psychiatric: Yes: Oriented Labs: CBC, BMP 12/27/17 05:00 12/27/17 12:07 Laboratory Tests 12/27/17 05:00 Sodium 136 Potassium 3.0 L Chloride 100 Carbon Dioxide 26 Imaging - Results Chest X-ray: Report Reviewed Cat Scan: Report Reviewed Assessment/Plan Current Medications Generic Name Dose Route Start Last Admin Trade Name Freq PRN Reason Stop Dose Admin Atorvastatin Calcium 40 mg 12/27/17 22:00 Lipitor - PO HS BRET Chlorhexidine Gluconate 1 applic 12/27/17 22:00 Hibiclens For Decolonization - TP HS BRET Clonidine HCl 0.4 mg 12/27/17 13:00 Catapres Tts Patch - TD We@1000 BRET Heparin Sodium (Porcine) 5,000 unit 12/27/17 08:30 12/27/17 08:39 Heparin - SQ 5,000 unit TID BRET Administration Nicardipine HCl 25 mg/ 250 mls @ 25 mls/hr 12/27/17 09:45 12/27/17 12:37 Dextrose IVPB 3 mg/hr TITR BRET 30 mls/hr Titration Protocol 2.5 MG/HR Mupirocin 1 applic 12/27/17 10:00 12/27/17 12:45 Bactroban Ointment (For Decolonization) - NS 01/01/18 09:59 1 applic BID BRET Administration Potassium Chloride 40 meq 12/27/17 18:05 Potassium Chloride Oral Liquid PO 12/27/17 18:06 ONCE ONE Impression 1. Conn/hyperaldo 2. htn emergency 3. CKD 4. MADISON 5. HTN poorly controlled 6. non compliance 7. vomiting 8. hypokalemia Plan - bp is improved - hold off lasix now as potassium is low - give spironolactone - replace potassium, pt is refusing IV - check mag level - renal function at baseline - check iron studies - discussed with cardio
--- NOTE | 2017-12-27 13:50 | EKG ---
Test Reason : Blood Pressure : / mmHG Vent. Rate : 060 BPM Atrial Rate : 060 BPM P-R Int : 184 ms QRS Dur : 104 ms QT Int : 566 ms P-R-T Axes : 040 -12 195 degrees QTc Int : 566 ms NORMAL SINUS RHYTHM POSSIBLE LEFT ATRIAL ENLARGEMENT LEFT VENTRICULAR HYPERTROPHY PROLONGED QT ABNORMAL ECG WHEN COMPARED WITH ECG OF 27-DEC-2017 04:54, NONSPECIFIC T WAVE ABNORMALITY NOW EVIDENT IN INFERIOR LEADS INVERTED T WAVES HAVE REPLACED NONSPECIFIC T WAVE ABNORMALITY IN ANTERIOR LEADS Confirmed by ROMELIA ZHU, DARLING ([id number]) on 12/27/2017 1:50:06 PM Referred By: MARTITA FLOREZ DR Confirmed By:DARLING LEÓN MD
[2017-12-27] MEDS ORDERED: SPIRONOLACTONE 25 MG TABLET (FP) PO ONE (14:00)
--- NOTE | 2017-12-27 14:30 | PN ---
Teaching Attending Note Name of Resident: Blossom rBuner ATTENDING PHYSICIAN STATEMENT I saw and evaluated the patient. I reviewed the resident's note and discussed the case with the resident. I agree with the resident's findings and plan as documented. SUBJECTIVE: Patient is a 37 year old female with PMHx of Conn Syndrome, CKD, Uncontrolled HTN , CHF who presents to ED. c/o complaining of having headache and diffuse abdominal pain. As per Patient since she was throwing up for the past 3 days, and was not able to keep anything down so patient was not taking her oral medications. In Ed was found to have elevated Blood Pressure of 214/152. Patient was started on Labetolol drip and was found to have low Potassium of 2.9 , Patient was admitted to ICU. OBJECTIVE: Vital Signs Temperature 98.3 F 12/27/17 10:08 Pulse Rate 57 L 12/27/17 12:37 Respiratory Rate 12 12/27/17 10:08 Blood Pressure 130/101 12/27/17 12:37 O2 Sat by Pulse Oximetry (%) 100 12/27/17 10:21 GENERAL:Awake but drowsy, alert, and fully oriented, in no acute distress. HEAD: Normal with no signs of trauma. EYES: Pupillary constricted bilaterally but equal, round and reactive to light, extraocular movements intact, sclera anicteric, conjunctiva clear. No lid lag. EARS, NOSE, THROAT:Oropharynx clear without exudates. Moist mucous membranes. NECK: Normal range of motion, supple without lymphadenopathy, JVD, or masses. LUNGS: CTA b/l with no wheezes or crackles. No accessory muscle use. HEART: RRR, without murmur, rub or gallop. ABDOMEN: Soft, diffuse mild tenderness upon palpation, not distended, normoactive bowel sounds, no guarding, no rebound. No hepatomegaly MUSCULOSKELETAL: No CVA tenderness. LOWER EXTREMITIES: No calf tenderness. No peripheral edema. NEUROLOGICAL: Cranial nerves II-XII intact. Normal speech. PSYCHIATRIC: Cooperative. Good eye contact. Appropriate mood and affect. SKIN: Warm, dry, normal turgor, no rashes or lesions noted, normal capillary refill. CBCD WBC 5.8 K/mm3 (4.0-10.0) 12/27/17 05:00 RBC 2.68 M/mm3 (3.60-5.2) L 12/27/17 05:00 Hgb 8.3 GM/dL (10.7-15.3) L 12/27/17 05:00 Hct 24.5 % (32.4-45.2) L D 12/27/17 05:00 MCV 91.4 fl (80-96) 12/27/17 05:00 MCHC 33.8 g/dl (32.0-36.0) 12/27/17 05:00 RDW 15.8 % (11.6-15.6) H 12/27/17 05:00 Plt Count 243 K/MM3 (134-434) D 12/27/17 05:00 MPV 8.6 fl (7.5-11.1) 12/27/17 05:00 CMP Sodium 136 mmol/L (136-145) 12/27/17 05:00 Potassium 2.9 mmol/L (3.5-5.1) L* 12/27/17 12:07 Chloride 100 mmol/L (98-107) 12/27/17 05:00 Carbon Dioxide 26 mmol/L (21-32) 12/27/17 05:00 Anion Gap 10 MMOL/L (8-16) 12/27/17 05:00 BUN 66 mg/dL (7-18) H 12/27/17 05:00 Creatinine 5.0 mg/dL (0.55-1.02) H 12/27/17 05:00 Creat Clearance w eGFR 9.63 (>60) 12/27/17 05:00 Random Glucose 90 mg/dL (74-106) 12/27/17 05:00 Calcium 9.0 mg/dL (8.5-10.1) 12/27/17 05:00 Total Bilirubin 0.8 mg/dL (0.2-1.0) 12/27/17 05:00 AST 60 U/L (15-37) H 12/27/17 05:00 ALT 85 U/L (12-78) H 12/27/17 05:00 Alkaline Phosphatase 85 U/L (45-117) 12/27/17 05:00 Total Protein 5.9 g/dl (6.4-8.2) L 12/27/17 05:00 Albumin 2.8 g/dl (3.4-5.0) L 12/27/17 05:00 CARDIAC ENZYMES Creatine Kinase 201 IU/L (26-192) H 12/27/17 12:07 Troponin I 0.25 ng/ml (0.00-0.05) H 12/27/17 12:07 Current Medications Generic Name Dose Route Start Last Admin Trade Name Ismaelq PRN Reason Stop Dose Admin Atorvastatin Calcium 40 mg 12/27/17 22:00 Lipitor - PO HS [facility] Chlorhexidine Gluconate 1 applic 12/27/17 22:00 Hibiclens For Decolonization - TP HS BRET Clonidine HCl 0.4 mg 12/27/17 13:00 12/27/17 13:39 Catapres Tts Patch - TD 0.4 mg We@1000 BRET Administration Heparin Sodium (Porcine) 5,000 unit 12/27/17 08:30 12/27/17 13:40 Heparin - SQ 5,000 unit TID BRET Administration Nicardipine HCl 25 mg/ 250 mls @ 25 mls/hr 12/27/17 09:45 12/27/17 12:37 Dextrose IVPB 3 mg/hr TITR BRET 30 mls/hr Titration Protocol 2.5 MG/HR Mupirocin 1 applic 12/27/17 10:00 12/27/17 12:45 Bactroban Ointment (For Decolonization) - NS 01/01/18 09:59 1 applic BID [facility] Administration Potassium Chloride 40 meq 12/27/17 18:05 Potassium Chloride Oral Liquid PO 12/27/17 18:06 ONCE ONE Spironolactone 50 mg 12/28/17 10:00 Aldactone - PO BID [facility] Home Medications Medication Instructions Recorded Labetalol HCl [Normodyne -] 300 mg PO BID 04/01/17 Clonidine Patch [Catapres Tts 0.3 mg TD WEEKLY 04/02/17 Patch -] Doxazosin Mesylate 8 mg PO BID 04/02/17 Atorvastatin Ca [Lipitor] 40 mg PO HS #30 tablet 06/20/17 Furosemide [Lasix] 80 mg PO DAILY 10/13/17 Hydralazine HCl 50 mg PO BID 10/13/17 Nifedipine [Procardia Xl] 60 mg PO BID 10/13/17 Spironolactone [Aldactone -] 50 mg PO BID 10/13/17 Selected Entries 12/27/17 12/27/17 12/27/17 04:36 06:36 09:10 Blood Pressure 214/152 199/145 186/138 12/27/17 12/27/17 12/27/17 09:30 10:00 10:08 Blood Pressure 177/140 198/141 198/141 12/27/17 12/27/17 10:16 12:00 Blood Pressure 189/137 142/112 CT/ABDOMEN PELVIS CT W/O CONTR HISTORY PROVIDED: Diffuse abdominal pain TECHNIQUE: Sequential axial images were obtained from the domes of the diaphragm through the symphysis pubis. The study is markedly limited without the use of any contrast material, as well as the patient's poor cooperation. Evaluation of the lung bases demonstrates a moderately enlarged heart with a small pericardial effusion. There are areas of groundglass opacification throughout the lower lobes suspicious for acute congestion. Clinical correlation is advised. Small pleural effusions are also present. The liver is enlarged measuring 23.5 cm in craniocaudad dimension. There are several hypodensities within the liver that most likely represent small cysts. Some of these are too small to accurately characterize. The spleen is not enlarged. The pancreas, adrenal glands and kidneys demonstrate no significant abnormalities. There is a 2 cm right renal cyst. The gallbladder is clear. There is no evidence of intra-abdominal or retroperitoneal lymphadenopathy or fluid collections. There is no evidence of pneumoperitoneum, bowel obstruction or intra-abdominal abscess. There is no CT evidence of acute appendicitis or diverticulitis. Examination of the pelvis demonstrates free fluid within the cul -de-sac. No evidence of pelvic masses, fluid collections or lymphadenopathy. The uterus has been removed. There are mild edematous changes throughout the subcutaneous tissues of the abdomen and pelvis. This may be on the basis of cardiac decompensation. Clinical correlation is advised. There is no evidence of acute bony abnormalities. Since a prior study of 10/21/2017, there is been no significant change. IMPRESSION: 1. Cardiomegaly, small pericardial effusion, mild congestion and small bilateral pleural effusions. 2. Hepatomegaly with scattered hepatic cysts. 3. Subcutaneous edema. 4. Free pelvic fluid, no acute pathology within the abdomen or pelvis. No significant change since 10/21/2017. Please see above discussion. Reported By: Ubaldo Palmer MD 12/27/[address] scan of the brain without intravenous contrast. Compared to prior CT scan of the head dated 10/14/2017 The ventricles and basal cisterns appear unremarkable. No mass lesion, gross acute infarct or intracranial hemorrhage are identified. Visualized paranasal sinuses and mastoid air cells are well-aerated. The calvarium is intact. Note is made of mild asymmetric soft tissue swelling of the scalp on the left side when compared to the right Impression: No significant interval change. No evidence of a focal intracranial lesion or hemorrhage seen. Mild soft tissue swelling of the scalp on the left side when compared to the right. Correlate clinically. A preliminary report was forwarded by the [facility] service, IMAGING CARDIAC CATHETERIZATION TECHNICIAN. Reported By: Alex Conklin MD 12/27/17 0940 ASSESSMENT AND PLAN: This is a 37 year old female with a significant PMHx of uncontrolled HTN, hyperaldosteronism, CKD who presented to the hospital complaining of having headache with elevated BP of 214/152. #Hypertensive emergency: non compliance with her medications and also patient was unable to take her meds. due to having Nausea and Vomiting. on Labetolol drip if no response will start the patient on Cardine drip. #Conn's Syndrome presented with Low potassium ,will replete potassium . #MADISON on CKD: baseline 4.1-4.5, today 5.1, Nephrology Dr Sunshine consulted, follow US kidney ordered # Headache:Improved post improvement of BP #nausea and vomiting: no further episodes in the hospital #Anemia: Hgb 9.0 in the setting of chronic Kidney disease ,iron studies ordered ,FOBT ordered DVT PX: SCDS, Heparin sq
[2017-12-27 16:31] LABS: URINE APPEARANCE SLCLOUDY; URINE BILIRUBIN NEGATIVE (<2.0 mg/dL); URINE COLOR YELLOW; URINE GLUCOSE (UA) NEGATIVE (NEGATIVE); URINE KETONE NEGATIVE (NEGATIVE); URINE NITRITE NEGATIVE (NEGATIVE); URINE UROBILINOGEN NEGATIVE mg/dL (0.2-1.0)
[2017-12-27 16:34] LABS: URINE LEUK ESTERASE 3+ (NEGATIVE); URINE PROTEIN 2+ (NEGATIVE)
[2017-12-27 16:35] LABS: EPI CELLS RARE /HPF (FEW)
[2017-12-27] MEDS ORDERED: ACETAMINOPHEN 325 MG TABLET (FP) PO PRN (20:33)
[2017-12-27] MEDS: CHLORHEXIDINE GLUCONATE 4% CLEANSER FOR DECOLONIZATION TP SCH (21:17)
[2017-12-27] MEDS: ATORVASTATIN CA 40 MG TABLET (FP) PO SCH (21:17)
[2017-12-27] MEDS ORDERED: MORPHINE SULFATE 2 MG/ML VIAL IVPUSH ONE (22:14)
[2017-12-28] MEDS: ATORVASTATIN CA 40 MG TABLET (FP) PO SCH ×3 (01:30→22:09)
[2017-12-28] MEDS: HEPARIN NA (PORCINE) 5,000 UNITS/ML 1ML VIAL SQ SCH ×4 (01:44→22:05)
[2017-12-28 05:55] LABS: HEMATOCRIT 22.9 % (32.4-45.2); HEMOGLOBIN 7.6 GM/dL (10.7-15.3); MCH 30.7 pg (25.7-33.7); MEAN PLT VOLUME 7.9 fl (7.5-11.1); PLATELET COUNT 188 K/MM3 (134-434); RBC 2.47 M/mm3 (3.60-5.2); RDW 15.5 % (11.6-15.6); WHITE BLOOD COUNT 5.4 K/mm3 (4.0-10.0)
[2017-12-28 06:21] LABS: ALBUMIN 2.6 g/dl (3.4-5.0); ANION GAP 9 MMOL/L (8-16); BILIRUBIN,TOTAL 0.8 mg/dL (0.2-1.0); BLOOD UREA NITROGEN 70 mg/dL (7-18); CALCIUM 8.5 mg/dL (8.5-10.1); CHLORIDE 102 mmol/L (98-107); CO2 26 mmol/L (21-32); CREATININE 5.3 mg/dL (0.55-1.02); GLUCOSE,RANDOM 99 mg/dL (74-106); MAGNESIUM 2.1 mg/dL (1.8-2.4); PHOSPHOROUS 4.3 mg/dL (2.5-4.9); POTASSIUM 3.5 mmol/L (3.5-5.1); SGOT/AST 51 U/L (15-37); SGPT/ALT 100 U/L (13-61); SODIUM 137 mmol/L (136-145); TOT PROT 5.4 g/dl (6.4-8.2)
[2017-12-28 06:22] LABS: ALK PHOS 84 U/L (45-117)
[2017-12-28] MEDS ORDERED: POTASSIUM CHLORIDE ORAL LIQUID 20 MEQ/15 ML PO ONE (07:08)
--- NOTE | 2017-12-28 09:06 | PN ---
Physical Exam: SUBJECTIVE: Patient seen and examined at bedside this morning, resting comfortably in bed. She still admits slight headache and nausea. Denies changes in vision, dizziness, chest pain, palpitations, shortness of breath. OBJECTIVE: Vital Signs Period Temp Pulse Resp BP Sys/Li Pulse Ox Last 24 Hr 98.0 F-98.8 F 57-72 11-21 130-198/101-148 97-100 GENERAL: Awake, alert, and fully oriented, in no acute distress. HEAD: Normocephalic, atraumatic EYES: PERRLA, extraocular movements intact, sclera anicteric. ENT: Oropharynx clear without exudates, moist mucous membranes. NECK: Supple without lymphadenopathy. LUNGS: Breath sounds equal, clear to auscultation bilaterally, no wheezes, no crackles, no accessory muscle use. HEART: Regular rate and rhythm, S1, S2 without murmur. ABDOMEN: Soft, nontender, nondistended, hypoactive bowel sounds, no guarding, no rebound. EXTREMITIES: 2+ dorsalis pedis and radial pulses. Warm, well-perfused, no edema in B/L lower extremities. NEUROLOGICAL: Cranial nerves II through XII grossly intact. Normal speech. Strength 5/5 B/L upper and lower extremities. PSYCH: Appropriate mood and affect upon my encounter today. SKIN: Warm, dry, no rashes or lesions noted. Laboratory Results - last 24 hr 12/27/17 12/27/17 12/27/17 12:07 12:07 12:07 WBC RBC Hgb Hct MCV MCH MCHC RDW Plt Count MPV Sodium Potassium 2.9 L* Chloride Carbon Dioxide Anion Gap BUN Creatinine Creat Clearance w eGFR Random Glucose Calcium Phosphorus Magnesium 2.2 Cancelled Ferritin Total Bilirubin AST ALT Alkaline Phosphatase Creatine Kinase Cancelled 201 H Creatine Kinase Index 1.2 CK-MB (CK-2) 2.46 Troponin I Cancelled 0.25 H Total Protein Albumin Urine Color Urine Appearance Urine pH Ur Specific [place] Urine Protein Urine Glucose (UA) Urine Ketones Urine Blood Urine Nitrite Urine Bilirubin Urine Urobilinogen Ur Leukocyte Esterase Urine WBC (Auto) Urine RBC (Auto) Ur Epithelial Cells 12/27/17 12/27/17 12/28/17 15:15 20:00 05:30 WBC 5.4 RBC 2.47 L Hgb 7.6 L Hct 22.9 L MCV 93.0 MCH 30.7 MCHC 33.0 RDW 15.5 Plt Count 188 D MPV 7.9 Sodium Potassium 4.0 Chloride Carbon Dioxide Anion Gap BUN Creatinine Creat Clearance w eGFR Random Glucose Calcium Phosphorus Magnesium Ferritin Total Bilirubin AST ALT Alkaline Phosphatase Creatine Kinase Creatine Kinase Index CK-MB (CK-2) Troponin I Total Protein Albumin Urine Color Yellow Urine Appearance Slcloudy Urine pH 5.0 Ur Specific [place] 1.012 Urine Protein 2+ H Urine Glucose (UA) Negative Urine Ketones Negative Urine Blood 1+ H Urine Nitrite Negative Urine Bilirubin Negative Urine Urobilinogen Negative Ur Leukocyte Esterase 3+ H Urine WBC (Auto) 46 Urine RBC (Auto) 7 Ur Epithelial Cells Rare 12/28/17 12/28/17 05:30 05:30 WBC RBC Hgb Hct MCV MCH MCHC RDW Plt Count MPV Sodium 137 Potassium 3.5 Chloride 102 Carbon Dioxide 26 Anion Gap 9 BUN 70 H Creatinine 5.3 H Creat Clearance w eGFR 9.01 Random Glucose 99 Calcium 8.5 Phosphorus 4.3 Magnesium 2.1 Ferritin 215.0 Total Bilirubin 0.8 AST 51 H ALT 100 H Alkaline Phosphatase 84 Creatine Kinase Creatine Kinase Index CK-MB (CK-2) Troponin I Total Protein 5.4 L Albumin 2.6 L Urine Color Urine Appearance Urine pH Ur Specific [place] Urine Protein Urine Glucose (UA) Urine Ketones Urine Blood Urine Nitrite Urine Bilirubin Urine Urobilinogen Ur Leukocyte Esterase Urine WBC (Auto) Urine RBC (Auto) Ur Epithelial Cells Active Medications Generic Name Dose Route Start Last Admin Trade Name Freq PRN Reason Stop Dose Admin Acetaminophen 650 mg 12/27/17 20:33 Tylenol - PO Q6H PRN PAIN Atorvastatin Calcium 40 mg 12/27/17 22:00 12/28/17 01:30 Lipitor - PO Not Given HS [facility] Chlorhexidine Gluconate 1 applic 12/27/17 22:00 12/27/17 21:17 Hibiclens For Decolonization - TP 1 applic HS BRET Administration Clonidine HCl 0.4 mg 12/27/17 13:00 12/27/17 13:39 Catapres Tts Patch - TD 0.4 mg We@1000 BRET Administration Heparin Sodium (Porcine) 5,000 unit 12/27/17 08:30 12/28/17 06:46 Heparin - SQ Not Given TID [facility] Nicardipine HCl 25 mg/ 250 mls @ 25 mls/hr 12/27/17 09:45 12/28/17 06:04 Dextrose IVPB 5 mg/hr TITR BRET 50 mls/hr Titration Protocol 2.5 MG/HR Mupirocin 1 applic 12/27/17 10:00 12/27/17 21:17 Bactroban Ointment (For Decolonization) - NS 01/01/18 09:59 1 applic BID BRET Administration Nifedipine 60 mg 12/28/17 10:00 Procardia Xl - PO BID BRET Spironolactone 50 mg 12/28/17 10:00 Aldactone - PO BID BRET ASSESSMENT/PLAN: Patient is a 37 year old female with history of Conn syndrome, chronic kidney disease, uncontrolled hypertension partly due to medication noncompliance presented with headache and abdominal pain. Admitted for hypertensive emergency. Hypertensive Emergency -Patient tapered off Nicardipine drip. -Reinstated on home medication Hydralazine 50mg PO BID. -Clonidine patch 0.4mg transdermal QD. -Nifedipine 60mg PO BID -Continue monitoring BP closely. Conn syndrome -Spironolactone 50mg PO BID -Patient will continue with outpatient follow up. Aortic Anseurysm -Likely secondary to hypertension -As per CT 4.1cm -Cardiology consult appreciated. Troponin Elevation -Troponins trended down 0.28 -> 0.25 -Likely secondary to demand ischemia due to elevated BP -Continue cardiac monitoring -Cardiology consult appreciated. Abdominal pain -CT abdomen/ pelvis showed:free pelvic fluid without acute pathology within abdomen. -GI consult (Dr. Fowler) appreciated: Patient will follow up as outpatient for hepatic cysts Hypokalemia -Resolved. Potassium today is 3.5 -Will follow CMP Anemia -MCV 93, 7.6 Hct, Hb 22.9 -F/U Iron, TIBC, Iron saturation, Ferritin Hyperlipidemia -Lipitor 40mg QD Chronic Kidney disease -May be secondary to uncontrolled hypertension -Nephrology consult (Dr. Sunshine) appreciated. FEN -No IV fluids -Will follow CMP -Sodium controlled diet Prophylaxis -Heparin 5000u subq TID Disposition: Transition IV to PO medications. Will transfer to telemetry for monitoring. Visit type - Emergency Visit Emergency Visit: Yes ED Registration Date: 12/27/17 Care time: The patient presented to the Emergency Department on the above date and was hospitalized for further evaluation of their emergent condition. - New Patient This patient is new to me today: Yes Date on this admission: 12/28/17 - Critical Care Critical Care patient: Yes Total Critical Care Time (in minutes): 35 Critical Care Statement: The care of this patient involved high complexity decision making to prevent further life threatening deterioration of the patient 's condition and/or to evaluate & treat vital organ system(s) failure or risk of failure. - Discharge Referral Referred to [facility] No
[2017-12-28] MEDS: NIFEdipine E.R 60 MG TABLET (UD) PO SCH ×2 (09:47→22:04)
[2017-12-28] MEDS: SPIRONOLACTONE 25 MG TABLET (FP) PO SCH ×2 (09:47→22:04)
[2017-12-28 10:53] LABS: URINE CREATININE 85.8 mg/dL (20-320)
[2017-12-28] MEDS: NICARDIPINE 25 MG in DEXTROSE 5%-WATER - 240 ML IVPB SCH (11:01)
[2017-12-28] MEDS ORDERED: traMADol HCL 50 MG TABLET PO ONE ×2 (11:08→18:00)
[2017-12-28] MEDS ORDERED: HYDROmorphone HCl 2 MG/ML VIAL IVPB ONE ×2 (11:30→11:51)
--- NOTE | 2017-12-28 12:52 | PN ---
Progress Note, Physician History of Present Illness: Pt seen and examined at bedside. She is awake and alert. She denies shortness of breath. She denies dysuria or hematuria. She denies nausea or vomiting today. - Current Medication List Current Medications: Active Medications Acetaminophen (Tylenol -) 650 mg PO Q6H PRN PRN Reason: PAIN Atorvastatin Calcium (Lipitor -) 40 mg PO HS [facility] Last Admin: 12/28/17 01:30 Dose: Not Given Chlorhexidine Gluconate (Hibiclens For Decolonization -) 1 applic TP HS [facility] Last Admin: 12/27/17 21:17 Dose: 1 applic Clonidine HCl (Catapres Tts Patch -) 0.4 mg TD We@1000 [facility] Last Admin: 12/27/17 13:39 Dose: 0.4 mg Heparin Sodium (Porcine) (Heparin -) 5,000 unit SQ TID [facility] Last Admin: 12/28/17 06:46 Dose: Not Given Hydralazine HCl (Apresoline -) 50 mg PO BID [facility] Nicardipine HCl 25 mg/ (Dextrose) 250 mls @ 25 mls/hr IVPB TITR [facility]; Protocol Last Titration: 12/28/17 12:11 Dose: 0 mg/hr, 0 mls/hr Mupirocin (Bactroban Ointment (For Decolonization) -) 1 applic NS BID [facility] Stop: 01/01/18 09:59 Last Admin: 12/27/17 21:17 Dose: 1 applic Nifedipine (Procardia Xl -) 60 mg PO BID [facility] Last Admin: 12/28/17 09:47 Dose: 60 mg Spironolactone (Aldactone -) 50 mg PO BID [facility] Last Admin: 12/28/17 09:47 Dose: 50 mg - Objective Vital Signs: Vital Signs Temperature 98.6 F 12/28/17 10:00 Pulse Rate 78 12/28/17 12:14 Respiratory Rate 18 12/28/17 12:14 Blood Pressure 143/98 12/28/17 12:14 O2 Sat by Pulse Oximetry (%) 97 12/28/17 08:12 Constitutional: Yes: Calm Eyes: Yes: Conjunctiva Clear HENT: Yes: Atraumatic Neck: Yes: Supple Cardiovascular: Yes: S1, S2 Respiratory: Yes: CTA Bilaterally Gastrointestinal: Yes: Soft Genitourinary: Yes: WNL Musculoskeletal: Yes: WNL Edema: Yes Edema: LLE: Trace, RLE: Trace Integumentary: Yes: Tattoos Neurological: Yes: Oriented Psychiatric: Yes: Oriented Labs: CBC, BMP 12/28/17 05:30 12/28/17 05:30 Problem List - Problems (1) Hypertensive emergency Code(s): I16.1 - HYPERTENSIVE EMERGENCY (2) Hypokalemia Code(s): E87.6 - HYPOKALEMIA (3) CKD (chronic kidney disease) Code(s): N18.9 - CHRONIC KIDNEY DISEASE, UNSPECIFIED Qualifiers: Chronic kidney disease stage: stage 4 (severe) Qualified Code(s): N18.4 - Chronic kidney disease, stage 4 (severe) Assessment/Plan Current Medications Generic Name Dose Route Start Last Admin Trade Name Freq PRN Reason Stop Dose Admin Acetaminophen 650 mg 12/27/17 20:33 Tylenol - PO Q6H PRN PAIN Atorvastatin Calcium 40 mg 12/27/17 22:00 12/28/17 01:30 Lipitor - PO Not Given HS B[facility] Chlorhexidine Gluconate 1 applic 12/27/17 22:00 12/27/17 21:17 Hibiclens For Decolonization - TP 1 applic HS [facility] Administration Clonidine HCl 0.4 mg 12/27/17 13:00 12/27/17 13:39 Catapres Tts Patch - TD 0.4 mg We@1000 [facility] Administration Heparin Sodium (Porcine) 5,000 unit 12/27/17 08:30 12/28/17 06:46 Heparin - SQ Not Given TID [facility] Hydralazine HCl 50 mg 12/28/17 12:15 Apresoline - PO BID [facility] Nicardipine HCl 25 mg/ 250 mls @ 25 mls/hr 12/27/17 09:45 12/28/17 12:11 Dextrose IVPB 0 mg/hr TITR [facility]RET 0 mls/hr Titration Protocol 2.5 MG/HR Mupirocin 1 applic 12/27/17 10:00 12/27/17 21:17 Bactroban Ointment (For Decolonization) - NS 01/01/18 09:59 1 applic BID [facility]RET Administration Nifedipine 60 mg 12/28/17 10:00 12/28/17 09:47 Procardia Xl - PO 60 mg BID BRET Administration Spironolactone 50 mg 12/28/17 10:00 09/13/18 09:47 Aldactone - PO 50 mg BID [facility]RET Administration Impression 1. Conn/hyperaldo 2. htn emergency 3. CKD 4. MADISON 5. HTN poorly controlled 6. non compliance 7. vomiting 8. hypokalemia Plan - taper down nicardipine drip - BP meds being re-introduced - cont to monitor renal function - cont spironolactone - monitor potassium level - pt says that she did discuss [employer]IA DIRECTOR with he eligibility services representative. She actually has a twin brother and they are looking into kidney transplant in the near future. - discussed with ICU team - cont to monitor bp - keep in ICU - discussed importance of compliance - check iron studies
[2017-12-28 13:00] LABS: RATIO URIN PROTEIN/URIN CREAT 1.3 MG/DL
[2017-12-28] MEDS ORDERED: hydrALAZINE HCL 50 MG TABLET (FP) PO SCH (13:15)
--- NOTE | 2017-12-28 13:45 | PN ---
Teaching Attending Note Name of Resident: Juan Márquez ATTENDING PHYSICIAN STATEMENT I saw and evaluated the patient. I reviewed the resident's note and discussed the case with the resident. I agree with the resident's findings and plan as documented. SUBJECTIVE: Patient is in ICU on Cardine drip, doing better. OBJECTIVE: Vital Signs Temperature 98.6 F 12/28/17 10:00 Pulse Rate 78 12/28/17 12:14 Respiratory Rate 18 12/28/17 12:14 Blood Pressure 143/98 12/28/17 12:14 O2 Sat by Pulse Oximetry (%) 97 12/28/17 08:12 CBCD WBC 5.4 K/mm3 (4.0-10.0) 12/28/17 05:30 RBC 2.47 M/mm3 (3.60-5.2) L 12/28/17 05:30 Hgb 7.6 GM/dL (10.7-15.3) L 12/28/17 05:30 Hct 22.9 % (32.4-45.2) L 12/28/17 05:30 MCV 93.0 fl (80-96) 12/28/17 05:30 MCHC 33.0 g/dl (32.0-36.0) 12/28/17 05:30 RDW 15.5 % (11.6-15.6) 12/28/17 05:30 Plt Count 188 K/MM3 (134-434) D 12/28/17 05:30 MPV 7.9 fl (7.5-11.1) 12/28/17 05:30 CMP Sodium 137 mmol/L (136-145) 12/28/17 05:30 Potassium 3.5 mmol/L (3.5-5.1) 12/28/17 05:30 Chloride 102 mmol/L (98-107) 12/28/17 05:30 Carbon Dioxide 26 mmol/L (21-32) 12/28/17 05:30 Anion Gap 9 MMOL/L (8-16) 12/28/17 05:30 BUN 70 mg/dL (7-18) H 12/28/17 05:30 Creatinine 5.3 mg/dL (0.55-1.02) H 12/28/17 05:30 Creat Clearance w eGFR 9.01 (>60) 12/28/17 05:30 Random Glucose 99 mg/dL (74-106) 12/28/17 05:30 Calcium 8.5 mg/dL (8.5-10.1) 12/28/17 05:30 Total Bilirubin 0.8 mg/dL (0.2-1.0) 12/28/17 05:30 AST 51 U/L (15-37) H 12/28/17 05:30 ALT 100 U/L (13-61) H 12/28/17 05:30 Alkaline Phosphatase 84 U/L (45-117) 12/28/17 05:30 Total Protein 5.4 g/dl (6.4-8.2) L 12/28/17 05:30 Albumin 2.6 g/dl (3.4-5.0) L 12/28/17 05:30 CARDIAC ENZYMES Creatine Kinase 201 IU/L (26-192) H 12/27/17 12:07 Troponin I 0.25 ng/ml (0.00-0.05) H 12/27/17 12:07 Current Medications Generic Name Dose Route Start Last Admin Trade Name Freq PRN Reason Stop Dose Admin Acetaminophen 650 mg 12/27/17 20:33 Tylenol - PO Q6H PRN PAIN Atorvastatin Calcium 40 mg 12/27/17 22:00 12/28/17 01:30 Lipitor - PO Not Given HS [facility] Chlorhexidine Gluconate 1 applic 12/27/17 22:00 12/27/17 21:17 Hibiclens For Decolonization - TP 1 applic HS [facility]RET Administration Clonidine HCl 0.4 mg 12/27/17 13:00 12/27/17 13:39 Catapres Tts Patch - TD 0.4 mg We@1000 [facility]RET Administration Heparin Sodium (Porcine) 5,000 unit 12/27/17 08:30 12/28/17 06:46 Heparin - SQ Not Given TID [facility] Hydralazine HCl 50 mg 12/28/17 13:15 12/28/17 13:42 Apresoline - PO 50 mg BID [facility] Administration Mupirocin 1 applic 12/27/17 10:00 12/27/17 21:17 Bactroban Ointment (For Decolonization) - NS 01/01/18 09:59 1 applic BID [facility] Administration Nifedipine 60 mg 12/28/17 10:00 12/28/17 09:47 Procardia Xl - PO 60 mg BID [facility] Administration Spironolactone 50 mg 12/28/17 10:00 12/28/17 09:47 Aldactone - PO 50 mg BID [facility]RET Administration Home Medications Medication Instructions Recorded Labetalol HCl [Normodyne -] 300 mg PO BID 04/01/17 Clonidine Patch [Catapres Tts 0.3 mg TD WEEKLY 04/02/17 Patch -] Doxazosin Mesylate 8 mg PO BID 04/02/17 Atorvastatin Ca [Lipitor] 40 mg PO HS #30 tablet 06/20/17 Furosemide [Lasix] 80 mg PO DAILY 10/13/17 Hydralazine HCl 50 mg PO BID 10/13/17 Nifedipine [Procardia Xl] 60 mg PO BID 10/13/17 Spironolactone [Aldactone -] 50 mg PO BID 10/13/17 CT/ABDOMEN PELVIS CT W/O CONTR. The study is markedly limited without the use of any contrast material, as well as the patient's poor cooperation. Evaluation of the lung bases demonstrates a moderately enlarged heart with a small pericardial effusion. There are areas of groundglass opacification throughout the lower lobes suspicious for acute congestion. Clinical correlation is advised. Small pleural effusions are also present. The liver is enlarged measuring 23.5 cm in craniocaudad dimension. There are several hypodensities within the liver that most likely represent small cysts. Some of these are too small to accurately characterize. The spleen is not enlarged. The pancreas, adrenal glands and kidneys demonstrate no significant abnormalities. There is a 2 cm right renal cyst. The gallbladder is clear. There is no evidence of intra- abdominal or retroperitoneal lymphadenopathy or fluid collections. There is no evidence of pneumoperitoneum, bowel obstruction or intra-abdominal abscess. There is no CT evidence of acute appendicitis or diverticulitis. Examination of the pelvis demonstrates free fluid within the cul-de-sac. No evidence of pelvic masses, fluid collections or lymphadenopathy. The uterus has been removed. There are mild edematous changes throughout the subcutaneous tissues of the abdomen and pelvis. This may be on the basis of cardiac decompensation. Clinical correlation is advised. There is no evidence of acute bony abnormalities. Since a prior study of 10/21/2017, there is been no significant change. IMPRESSION: 1. Cardiomegaly, small pericardial effusion, mild congestion and small bilateral pleural effusions. 2. Hepatomegaly with scattered hepatic cysts. 3. Subcutaneous edema. 4. Free pelvic fluid, no acute pathology within the abdomen or pelvis. No significant change since 10/21/2017. Please see above discussion. Reported By: Ubaldo Palmer MD 12/27/17 0826 PE: see resident's note ASSESSMENT AND PLAN: This is a 37 year old female with a significant PMHx of uncontrolled HTN, hyperaldosteronism, CKD who presented to the hospital complaining of having headache with elevated BP of 214/152. #Hypertensive emergency: improving On Cardine drip, patient is non compliance with her medications. Continue Cardine and home meds. #Conn's Syndrome presented with Low potassium ,continue to replete potassium . #MADISON on CKD: baseline 4.1-4.5, today 5.1-->5.3 today, Nephrology Dr Sunshine consulted, US kidney # Hepatosplenomegaly with several hypodense areas within the Liver with small cysts, will get GI see her. # Headache:Improved post improving of BP #nausea and vomiting: no further episodes in the hospital #Anemia: Hgb 9.0 in the setting of chronic Kidney disease ,iron studies ordered ,FOBT ordered DVT PX: SCDS, Heparin sq
[2017-12-28] MEDS: MUPIROCIN 2% TOPICAL OINTMENT FOR DECOLONIZATION NS SCH ×2 (13:51→22:05)
--- NOTE | 2017-12-28 13:53 | PN ---
Progress Note (short form) - Note Progress Note: s: no cp sob palps dizzy o: Vital Signs Period Temp Pulse Resp BP Sys/Li Pulse Ox Last 24 Hr 98.0 F-98.8 F 59-78 11-21 143-180/98-134 97-100 Constitutional: Yes: No Distress, Calm, Other (appears sleepy) Eyes: Yes: Conjunctiva Clear Neck: Yes: Supple Respiratory: Yes: Regular, CTA Bilaterally Gastrointestinal: Yes: Normal Bowel Sounds, Soft Renal/: Yes: WNL Cardiovascular: Yes: Regular Rate and Rhythm JVD: No Heart Sounds: Yes: S1, S2 Edema: No Current Medications Generic Name Dose Route Start Last Admin Trade Name Freq PRN Reason Stop Dose Admin Acetaminophen 650 mg 12/27/17 20:33 Tylenol - PO Q6H PRN PAIN Atorvastatin Calcium 40 mg 12/27/17 22:00 12/28/17 01:30 Lipitor - PO Not Given HS BRET Chlorhexidine Gluconate 1 applic 12/27/17 22:00 12/27/17 21:17 Hibiclens For Decolonization - TP 1 applic HS [facility]RET Administration Clonidine HCl 0.4 mg 12/27/17 13:00 12/27/17 13:39 Catapres Tts Patch - TD 0.4 mg We@1000 BRET Administration Heparin Sodium (Porcine) 5,000 unit 12/27/17 08:30 12/28/17 06:46 Heparin - SQ Not Given TID [facility] Hydralazine HCl 50 mg 12/28/17 13:15 12/28/17 13:42 Apresoline - PO 50 mg BID BRET Administration Mupirocin 1 applic 12/27/17 10:00 12/28/17 13:51 Bactroban Ointment (For Decolonization) - NS 01/01/18 09:59 1 applic BID [facility]RET Administration Nifedipine 60 mg 12/28/17 10:00 12/28/17 09:47 Procardia Xl - PO 60 mg BID BRET Administration Spironolactone 50 mg 12/28/17 10:00 12/28/17 09:47 Aldactone - PO 50 mg BID BRET Administration CBC, BMP 12/28/17 05:30 12/28/17 05:30 Assessment/Plan ECG: sinus, prolonged QT (QTc 542) echo 06/2017: mild lve. 1+ conc lvh. mild dec lv sys fn. mild-mod lat wall HK. mod inferolateral wall HK. 1+ lae. 1+ ar, mod mr, nl aortic root size. small pericardial effusion (images reviewed by dr taylor: no regionality to LV hypokinesis--there is global mild-moderate LV hypokinesis, EF 40-45%. moderate conc LVH. moderate MR) echo 03/2017: mod LVH (concentric); nl LVSF. nl RV. nl LA. mild AI/MR/TR. normal aortic root. small effusion chest CT 03/2017: Ascending aorta 4.1 cm. PA dilation (3.6 cm). tele: sr 37 yo with h/o secondary HTN (hyperaldo) in [address] Luigi Dunham and hypertensive specialist Dr Vargas ([facility]) who p/w nausea vomiting and noted to have hypertensive urgency/emergency, troponin elevation and rangel. hypertensive urgency, known hyperaldosteronism, hypertensive heart dz/renal dz: - HTN urgency admit here previously triggered by non-adherence to po meds due to nausea and vomiting - recent admission for similar 10/2017 - on nicardipine gtt, BP improved. continue resuming home meds, taper off gtt chronic syst/diast(mixed) CHF: - likely hypertensive cardiomyopathy - very poor GFR limits diuretics dosing, continue home furosemide when able to take PO - no symptoms concerning for HF, appears euvolemic hypokalemia-->causing prolonged QT: - sec to hyperaldosternoism. - has required up to 140 meq qd K repletion in past, refused IV K repletion in ER - on PO repletion now, monitor closely and replete as needed in setting of prolonged QT aorta aneurysm: -4.1 cm ascending aorta on 03/2017 CT scan -sec to uncontrolled HTN -bp control, bp as doing -routine outpt aorta surveillance CKD: -creat running around 5.0 on recent visits, GFR 9 -stable here - nephrology following
--- NOTE | 2017-12-28 14:28 | PN ---
Progress Note (short form) - Note Progress Note: GI was called for liver cysts on the most recent CT A/P w/o. Per [facility] records, the patient had 5 CT scans of the abdomen and pelvis in the last 9 months. Small , stable, liver cysts were documented on all of them. No need for additional work up at this time. It would be reasonable to follow up with GI, or PCP as OP to monitor liver in the settings of chronic hypertensive cardiomyopathy/CHF. Please consult GI as needed.
--- NOTE | 2017-12-28 14:46 | PN ---
Physical Exam: SUBJECTIVE: Patient is a 37 y/o female with a mast medical history of Conn's Syndrome, CHF, CKD, nSTEMI in 07/02 and uncontrolled HTN who presents Hypertensive Emergency 05/19 to Conn's Syndrome uncontrolled because of vomiting medications. Patient only has some pain in her neck today, but denies headache, change in vision, nausea, or vomiting. Patient off nicardipine drip. OBJECTIVE: Vital Signs Temperature 98.6 F 12/28/17 10:00 Pulse Rate 78 12/28/17 12:14 Respiratory Rate 18 12/28/17 12:14 Blood Pressure 143/98 12/28/17 12:14 O2 Sat by Pulse Oximetry (%) 97 12/28/17 08:12 GENERAL: Awake, alert, and fully oriented HEAD: Normal with no signs of trauma. EYES: Pupils constricted, EOMI EARS, NOSE, THROAT: Moist mucous membranes. LUNGS: Breath sounds equal, clear to auscultation bilaterally. HEART: RRR, normal S1 and S2 ABDOMEN: Soft, nontender, not distended, normoactive bowel sounds, MUSCULOSKELETAL: Normal range of motion at all joints. LOWER EXTREMITIES: warm, well-perfused. no edema SKIN: Warm, dry, normal turgor, no rashes or lesions noted. CBCD WBC 5.4 K/mm3 (4.0-10.0) 12/28/17 05:30 RBC 2.47 M/mm3 (3.60-5.2) L 12/28/17 05:30 Hgb 7.6 GM/dL (10.7-15.3) L 12/28/17 05:30 Hct 22.9 % (32.4-45.2) L 12/28/17 05:30 MCV 93.0 fl (80-96) 12/28/17 05:30 MCHC 33.0 g/dl (32.0-36.0) 12/28/17 05:30 RDW 15.5 % (11.6-15.6) 12/28/17 05:30 Plt Count 188 K/MM3 (134-434) D 12/28/17 05:30 MPV 7.9 fl (7.5-11.1) 12/28/17 05:30 CMP Sodium 137 mmol/L (136-145) 12/28/17 05:30 Potassium 3.5 mmol/L (3.5-5.1) 12/28/17 05:30 Chloride 102 mmol/L (98-107) 12/28/17 05:30 Carbon Dioxide 26 mmol/L (21-32) 12/28/17 05:30 Anion Gap 9 MMOL/L (8-16) 12/28/17 05:30 BUN 70 mg/dL (7-18) H 12/28/17 05:30 Creatinine 5.3 mg/dL (0.55-1.02) H 12/28/17 05:30 Creat Clearance w eGFR 9.01 (>60) 12/28/17 05:30 Calcium 8.5 mg/dL (8.5-10.1) 12/28/17 05:30 Total Bilirubin 0.8 mg/dL (0.2-1.0) 12/28/17 05:30 AST 51 U/L (15-37) H 12/28/17 05:30 ALT 100 U/L (13-61) H 12/28/17 05:30 Alkaline Phosphatase 84 U/L (45-117) 12/28/17 05:30 Total Protein 5.4 g/dl (6.4-8.2) L 12/28/17 05:30 Albumin 2.6 g/dl (3.4-5.0) L 12/28/17 05:30 Active Medications Acetaminophen (Tylenol -) 650 mg PO Q6H PRN PRN Reason: PAIN Atorvastatin Calcium (Lipitor -) 40 mg PO [facility] Last Admin: 12/28/17 01:30 Dose: Not Given Chlorhexidine Gluconate (Hibiclens For Decolonization -) 1 applic TP HS [facility] Last Admin: 12/27/17 21:17 Dose: 1 applic Clonidine HCl (Catapres Tts Patch -) 0.4 mg TD We@1000 [facility] Last Admin: 12/27/17 13:39 Dose: 0.4 mg Heparin Sodium (Porcine) (Heparin -) 5,000 unit SQ TID [facility] Last Admin: 12/28/17 06:46 Dose: Not Given Hydralazine HCl (Apresoline -) 50 mg PO BID [facility] Last Admin: 12/28/17 13:42 Dose: 50 mg Mupirocin (Bactroban Ointment (For Decolonization) -) 1 applic NS BID [facility] Stop: 01/01/18 09:59 Last Admin: 12/28/17 13:51 Dose: 1 applic Nifedipine (Procardia Xl -) 60 mg PO BID [facility] Last Admin: 12/28/17 09:47 Dose: 60 mg Spironolactone (Aldactone -) 50 mg PO BID [facility] Last Admin: 12/28/17 09:47 Dose: 50 mg ASSESSMENT/PLAN: Patient is a 37 y/o female with a past medical history of Conn's Syndrome, CHF, CKD, and uncontrolled HTN who presents for Hypertensive Emergency 2/2 to uncontrolled Conn's Syndrome due to vomiting and unable to take medications for ~3 days. Neuro Headache 2/2 to hypertensive emergency: resolved - patient given morphine 4mg in ED for pain - A & O x 3 Cardio Hypertensive Emergency 2/2 to Conn's Syndrome uncontrolled because unable to take po medications - patient has a history of noncompliance, home BP's usually ~155/100 - patient BP 155/117 this morning, nicardipine drip down to 2.5 and repeat BP was 172/119, patients home nifedipine was given and hydralazine was started and BP has since normalized, patient currently off drip - Clonidine .4 mg daily patch - Hydralazine 50 BID - Nifedipine 60 mg BID - lebatolol still held - EKG changes, twave inversion likely 2/2 to hypokalemia, discussed with Dr. Santos Ascending Aortic Aneyrusm 2/2 to HTN - 4.[address] scan from 04/02 - continue to monitor Pulm SOB - on presentation, maintain O 2 sat > 92% - monitor for signs of overload, can use lasix prn if signs of overload GI nausea/vomiting 2/2 to Conn's Syndrome : resolved - ABD CT: small pericardial effusion, hepatomegaly with scattered cysts, free pelvic fluid - QTC prolonged due to hypokalemia, no anti nausea meds at this time Renal CKD stage 5 - BUN/Cr appears to be at baseline- cr 5.0 - pt saw Dr. 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 due to insufficient imaging - f/u with Hypertensive specialtist - spironolactone 50 BID Hepatomegaly DVT ppx - Heparin TID Anemia - history, normocytic likeley 2/2 to CKD - f/u Iron studies FEN - repleted K 40 mg po liquid - Na controlled diet Dispo: Patient blood pressure at base line, can go to tele floor today Visit type - Emergency Visit Emergency Visit: No - New Patient This patient is new to me today: No - Critical Care Critical Care patient: Yes Total Critical Care Time (in minutes): 40 Critical Care Statement: The care of this patient involved high complexity decision making to prevent further life threatening deterioration of the patient 's condition and/or to evaluate & treat vital organ system(s) failure or risk of failure.
--- NOTE | 2017-12-28 14:55 | PN ---
Teaching Attending Note Name of Resident: Ping Reinoso ATTENDING PHYSICIAN STATEMENT I saw and evaluated the patient. I reviewed the resident's note and discussed the case with the resident. I agree with the resident's findings and plan as documented. SUBJECTIVE: Patient seen and examined in the ICU. Remains on Cardene drip. Reports increase in back pain. No CP or SOB. Reports headache and nausea are improving. OBJECTIVE: Intake & Output 12/25/17 12/26/17 12/27/17 12/28/17 23:59 23:59 23:59 23:59 Intake Total 150 850 Output Total 600 Balance -450 850 Weight 152 lb Last Vital Signs Temp Pulse Resp BP Pulse Ox 98.6 F 78 18 143/98 97 12/28/17 10:00 12/28/17 12:14 12/28/17 12:14 12/28/17 12:14 12/28/17 08:12 Active Medications Acetaminophen (Tylenol -) 650 mg PO Q6H PRN PRN Reason: PAIN Atorvastatin Calcium (Lipitor -) 40 mg PO HS [facility] Last Admin: 12/28/17 01:30 Dose: Not Given Chlorhexidine Gluconate (Hibiclens For Decolonization -) 1 applic TP [facility] Last Admin: 12/27/17 21:17 Dose: 1 applic Clonidine HCl (Catapres Tts Patch -) 0.4 mg TD We@1000 [facility] Last Admin: 12/27/17 13:39 Dose: 0.4 mg Heparin Sodium (Porcine) (Heparin -) 5,000 unit SQ TID [facility] Last Admin: 12/28/17 06:46 Dose: Not Given Hydralazine HCl (Apresoline -) 50 mg PO BID [facility] Last Admin: 12/28/17 13:42 Dose: 50 mg Mupirocin (Bactroban Ointment (For Decolonization) -) 1 applic NS BID [facility] Stop: 01/01/18 09:59 Last Admin: 12/28/17 13:51 Dose: 1 applic Nifedipine (Procardia Xl -) 60 mg PO BID [facility] Last Admin: 12/28/17 09:47 Dose: 60 mg Spironolactone (Aldactone -) 50 mg PO BID [facility] Last Admin: 12/28/17 09:47 Dose: 50 mg Gen: Awake and alert, NAD Heart: RRR Lung: decreased breath sounds at the bases Abd: soft, nontender Ext: no edema Laboratory Results - last 24 hr 12/27/17 12/27/17 12/27/17 09:50 09:50 15:15 WBC RBC Hgb Hct MCV MCH MCHC RDW Plt Count MPV Sodium Potassium Chloride Carbon Dioxide Anion Gap BUN Creatinine Creat Clearance w eGFR Random Glucose Calcium Phosphorus Magnesium Ferritin Total Bilirubin AST ALT Alkaline Phosphatase Total Protein Albumin Urine Color Yellow Urine Appearance Slcloudy Urine pH 5.0 Ur Specific [place] 1.012 Urine Protein 2+ H Urine Glucose (UA) Negative Urine Ketones Negative Urine Blood 1+ H Urine Nitrite Negative Urine Bilirubin Negative Urine Urobilinogen Negative Ur Leukocyte Esterase 3+ H Urine WBC (Auto) 46 Urine RBC (Auto) 7 Ur Epithelial Cells Rare U Random Total Protein 112 H Ur Random Sodium 19 Ur Random Potassium 23.5 Ur Random Chloride 11 Urine Creatinine 85.8 Protein/Creatinin Ratio 1.30 12/27/17 12/28/17 12/28/17 20:00 05:30 05:30 WBC 5.4 RBC 2.47 L Hgb 7.6 L Hct 22.9 L MCV 93.0 MCH 30.7 MCHC 33.0 RDW 15.5 Plt Count 188 D MPV 7.9 Sodium 137 Potassium 4.0 3.5 Chloride 102 Carbon Dioxide 26 Anion Gap 9 BUN 70 H Creatinine 5.3 H Creat Clearance w eGFR 9.01 Random Glucose 99 Calcium 8.5 Phosphorus 4.3 Magnesium 2.1 Ferritin Total Bilirubin 0.8 AST 51 H ALT 100 H Alkaline Phosphatase 84 Total Protein 5.4 L Albumin 2.6 L Urine Color Urine Appearance Urine pH Ur Specific [place] Urine Protein Urine Glucose (UA) Urine Ketones Urine Blood Urine Nitrite Urine Bilirubin Urine Urobilinogen Ur Leukocyte Esterase Urine WBC (Auto) Urine RBC (Auto) Ur Epithelial Cells U Random Total Protein Ur Random Sodium Ur Random Potassium Ur Random Chloride Urine Creatinine Protein/Creatinin Ratio 12/28/17 05:30 WBC RBC Hgb Hct MCV MCH MCHC RDW Plt Count MPV Sodium Potassium Chloride Carbon Dioxide Anion Gap BUN Creatinine Creat Clearance w eGFR Random Glucose Calcium Phosphorus Magnesium Ferritin 215.0 Total Bilirubin AST ALT Alkaline Phosphatase Total Protein Albumin Urine Color Urine Appearance Urine pH Ur Specific [place] Urine Protein Urine Glucose (UA) Urine Ketones Urine Blood Urine Nitrite Urine Bilirubin Urine Urobilinogen Ur Leukocyte Esterase Urine WBC (Auto) Urine RBC (Auto) Ur Epithelial Cells U Random Total Protein Ur Random Sodium Ur Random Potassium Ur Random Chloride Urine Creatinine Protein/Creatinin Ratio ASSESSMENT AND PLAN: Hypertensive Urgency/Emergency +Troponins LV Systolic/Diastolic Dysfunction Mitral Regurgitation Hyperaldosteronism Aortic Aneurysm CKD - resume and titrate PO BP meds as tolerated - titrate/taper cardene gtt - PO as tolerated - trend cardiac enzymes - O2 to keep SpO2>90% - DVT prophylaxis - ICU monitoring while on cardene drip Dr Iraheta Critical care time spent in reviewing chart, evaluating patient and formulating plan 36 min
--- NOTE | 2017-12-28 15:36 | EKG ---
Test Reason : Blood Pressure : / mmHG Vent. Rate : 074 BPM Atrial Rate : 074 BPM P-R Int : 154 ms QRS Dur : 096 ms QT Int : 436 ms P-R-T Axes : -83 014 205 degrees QTc Int : 483 ms UNUSUAL P AXIS, POSSIBLE ECTOPIC ATRIAL RHYTHM PROLONGED QT ABNORMAL ECG WHEN COMPARED WITH ECG OF 27-DEC-2017 11:53, ECTOPIC ATRIAL RHYTHM HAS REPLACED SINUS RHYTHM QT HAS SHORTENED Confirmed by LEONEL ZHU, LAQUITA ([id number]) on 12/28/2017 3:36:14 PM Referred By: KING ODELL Confirmed By:LAQUITA CASTANEDA MD
[2017-12-28] MEDS ORDERED: MORPHINE SULFATE 2 MG/ML VIAL IVPUSH ONE (19:09)
[2017-12-28] MEDS: hydrALAZINE HCL 50 MG TABLET (FP) PO SCH (22:04)
[2017-12-28] MEDS: CHLORHEXIDINE GLUCONATE 4% CLEANSER FOR DECOLONIZATION TP SCH (22:05)
[2017-12-28] MEDS ORDERED: HYDROmorphone HCl 2 MG/ML VIAL IVPUSH ONE ×2 (22:15→22:30)
[2017-12-29] MEDS ORDERED: HYDROmorphone HCl 2 MG/ML VIAL IVPUSH ONE (04:06)
[2017-12-29 05:55] LABS: HEMATOCRIT 23.7 % (32.4-45.2); MCH 31.4 pg (25.7-33.7); MCHC 33.9 g/dl (32.0-36.0); MEAN CELL VOLUME 92.6 fl (80-96); MEAN PLT VOLUME 8.1 fl (7.5-11.1); PLATELET COUNT 239 K/MM3 (134-434); RBC 2.56 M/mm3 (3.60-5.2); RDW 15.6 % (11.6-15.6); WHITE BLOOD COUNT 6.1 K/mm3 (4.0-10.0)
[2017-12-29 06:10] LABS: SERUM IRON SATURATION 22 % (15-55); TOTAL IRON BINDING CAPACITY 265 ug/dL (250-450); UIBC 207 ug/dL (131-425)
[2017-12-29 06:10] LABS: ALBUMIN 2.8 g/dl (3.4-5.0); ANION GAP 11 MMOL/L (8-16); BLOOD UREA NITROGEN 64 mg/dL (7-18); CALCIUM 8.7 mg/dL (8.5-10.1); CHLORIDE 100 mmol/L (98-107); CO2 25 mmol/L (21-32); CREATININE 5.3 mg/dL (0.55-1.3); GLUCOSE,RANDOM 103 mg/dL (74-106); SODIUM 136 mmol/L (136-145)
[2017-12-29 06:14] LABS: ALK PHOS 92 U/L (45-117); BILIRUBIN,TOTAL 0.5 mg/dL (0.2-1.0); SGPT/ALT 97 U/L (13-61); TOT PROT 5.9 g/dl (6.4-8.2)
[2017-12-29 06:15] LABS: SGOT/AST 50 U/L (15-37)
[2017-12-29] MEDS: HEPARIN NA (PORCINE) 5,000 UNITS/ML 1ML VIAL SQ SCH ×2 (06:23→15:41)
[2017-12-29 09:13] VITALS: BMI 21.9
[2017-12-29] MEDS: NIFEdipine E.R 60 MG TABLET (UD) PO SCH (09:24)
[2017-12-29] MEDS: SPIRONOLACTONE 25 MG TABLET (FP) PO SCH (09:24)
[2017-12-29] MEDS: hydrALAZINE HCL 50 MG TABLET (FP) PO SCH (09:24)
[2017-12-29] MEDS: MUPIROCIN 2% TOPICAL OINTMENT FOR DECOLONIZATION NS SCH (09:25)
[2017-12-29] MEDS ORDERED: LABETALOL HCL 100 MG TABLET (FP) PO SCH (10:00)
[2017-12-29] MEDS ORDERED: ALPRAZolam 0.25 MG TABLET PO ONE (11:40)
--- NOTE | 2017-12-29 11:41 | PN ---
Teaching Attending Note Name of Resident: Ping Reinoso ATTENDING PHYSICIAN STATEMENT I saw and evaluated the patient. I reviewed the resident's note and discussed the case with the resident. I agree with the resident's findings and plan as documented. SUBJECTIVE: Patient seen and examined in the ICU. Remains off Cardene drip. Reports persistent back pain. No CP or SOB. Reports headache and nausea are improving. OBJECTIVE: Intake & Output 12/26/17 12/27/17 12/28/17 12/29/17 23:59 23:59 23:59 23:59 Intake Total 150 975 300 Output Total 600 Balance -450 975 300 Weight 152 lb 162 lb Last Vital Signs Temp Pulse Resp BP Pulse Ox 98.3 F 89 18 166/115 98 12/29/17 06:00 12/29/17 08:00 12/29/17 09:00 12/29/17 08:00 12/29/17 09:00 Active Medications Acetaminophen (Tylenol -) 650 mg PO Q6H PRN PRN Reason: PAIN Last Admin: 12/28/17 15:11 Dose: 650 mg Alprazolam (Xanax -) 0.5 mg PO ONCE ONE Stop: 12/29/17 11:41 Atorvastatin Calcium (Lipitor -) 40 mg PO HS [facility] Last Admin: 12/28/17 22:09 Dose: Not Given Chlorhexidine Gluconate (Hibiclens For Decolonization -) 1 applic TP HS [facility] Last Admin: 12/28/17 22:05 Dose: 1 applic Clonidine HCl (Catapres Tts Patch -) 0.4 mg TD We@1000 [facility] Last Admin: 12/27/17 13:39 Dose: 0.4 mg Heparin Sodium (Porcine) (Heparin -) 5,000 unit SQ TID [facility] Last Admin: 12/29/17 06:23 Dose: Not Given Hydralazine HCl (Apresoline -) 50 mg PO BID [facility] Last Admin: 12/29/17 09:24 Dose: 50 mg Labetalol HCl (Normodyne -) 300 mg PO BID [facility] Last Admin: 12/29/17 10:20 Dose: 300 mg Mupirocin (Bactroban Ointment (For Decolonization) -) 1 applic NS BID [facility] Stop: 01/01/18 09:59 Last Admin: 12/29/17 09:25 Dose: Not Given Nifedipine (Procardia Xl -) 60 mg PO BID [facility] Last Admin: 12/29/17 09:24 Dose: 60 mg Spironolactone (Aldactone -) 50 mg PO BID [facility] Last Admin: 12/29/17 09:24 Dose: 50 mg Gen: Awake and alert, NAD Heart: RRR Lung: decreased breath sounds at the bases Abd: soft, nontender Ext: no edema Laboratory Results - last 24 hr 12/27/17 12/28/17 12/29/17 09:50 05:30 05:30 WBC 6.1 RBC 2.56 L Hgb 8.0 L Hct 23.7 L MCV 92.6 MCH 31.4 MCHC 33.9 RDW 15.6 Plt Count 239 D MPV 8.1 Sodium Potassium Chloride Carbon Dioxide Anion Gap BUN Creatinine Creat Clearance w eGFR Random Glucose Calcium Iron 58 TIBC 265 Iron Saturation 22 Total Bilirubin AST ALT Alkaline Phosphatase Total Protein Albumin Protein/Creatinin Ratio 1.30 12/29/17 05:30 WBC RBC Hgb Hct MCV MCH MCHC RDW Plt Count MPV Sodium 136 Potassium 4.0 Chloride 100 Carbon Dioxide 25 Anion Gap 11 BUN 64 H Creatinine 5.3 H Creat Clearance w eGFR 9.01 Random Glucose 103 Calcium 8.7 Iron TIBC Iron Saturation Total Bilirubin 0.5 AST 50 H ALT 97 H Alkaline Phosphatase 92 Total Protein 5.9 L Albumin 2.8 L Protein/Creatinin Ratio ASSESSMENT AND PLAN: Hypertensive Urgency/Emergency +Troponins LV Systolic/Diastolic Dysfunction Mitral Regurgitation Hyperaldosteronism Aortic Aneurysm CKD - Titrate PO BP meds as tolerated - PO as tolerated - O2 to keep SpO2>90% - DVT prophylaxis - Trial of BZ for muscle tension - Floor Dr Iraheta
[2017-12-29] MEDS ORDERED: hydrALAZINE HCL 50 MG TABLET (FP) PO SCH (11:45)
--- NOTE | 2017-12-29 11:48 | PN ---
Progress Note (short form) - Note Progress Note: s: no cp sob palps dizzy o: Vital Signs Period Temp Pulse Resp BP Sys/Li Pulse Ox Last 24 Hr 98.0 F-98.3 F 78-94 14-22 115-171/82-132 98-98 Constitutional: Yes: No Distress, Calm, Other (appears sleepy) Eyes: Yes: Conjunctiva Clear Neck: Yes: Supple Respiratory: Yes: Regular, CTA Bilaterally Gastrointestinal: Yes: Normal Bowel Sounds, Soft Renal/: Yes: WNL Cardiovascular: Yes: Regular Rate and Rhythm JVD: No Heart Sounds: Yes: S1, S2 Edema: No Current Medications Generic Name Dose Route Start Last Admin Trade Name Freq PRN Reason Stop Dose Admin Acetaminophen 650 mg 12/27/17 20:33 12/28/17 15:11 Tylenol - PO 650 mg Q6H PRN Administration PAIN Atorvastatin Calcium 40 mg 12/27/17 22:00 12/28/17 22:09 Lipitor - PO Not Given HS [facility] Chlorhexidine Gluconate 1 applic 12/27/17 22:00 12/28/17 22:05 Hibiclens For Decolonization - TP 1 applic HS [facility] Administration Clonidine HCl 0.4 mg 12/27/17 13:00 12/27/17 13:39 Catapres Tts Patch - TD 0.4 mg We@1000 [facility] Administration Heparin Sodium (Porcine) 5,000 unit 12/27/17 08:30 12/29/17 06:23 Heparin - SQ Not Given TID [facility] Hydralazine HCl 100 mg 12/29/17 11:45 Apresoline - PO BID [facility] Labetalol HCl 300 mg 12/29/17 10:00 12/29/17 10:20 Normodyne - PO 300 mg BID [facility] Administration Mupirocin 1 applic 12/27/17 10:00 12/29/17 09:25 Bactroban Ointment (For Decolonization) - NS 01/01/18 09:59 Not Given BID [facility] Nifedipine 60 mg 12/28/17 10:00 12/29/17 09:24 Procardia Xl - PO 60 mg BID [facility] Administration Spironolactone 50 mg 12/28/17 10:00 12/29/17 09:24 Aldactone - PO 50 mg BID [facility] Administration CBC, BMP 12/29/17 05:30 12/29/17 05:30 Assessment/Plan ECG: sinus, prolonged QT (QTc 542) echo 06/2017: mild lve. 1+ conc lvh. mild dec lv sys fn. mild-mod lat wall HK. mod inferolateral wall HK. 1+ lae. 1+ ar, mod mr, nl aortic root size. small pericardial effusion (images reviewed by dr taylor: no regionality to LV hypokinesis--there is global mild-moderate LV hypokinesis, EF 40-45%. moderate conc LVH. moderate MR) echo 03/2017: mod LVH (concentric); nl LVSF. nl RV. nl LA. mild AI/MR/TR. normal aortic root. small effusion chest CT 03/2017: Ascending aorta 4.1 cm. PA dilation (3.6 cm). tele: sr 37 yo with h/o secondary HTN (hyperaldo) in [address] Luigi Dunham and hypertensive specialist Dr Vargas ([facility]) who p/w nausea vomiting and noted to have hypertensive urgency/emergency, troponin elevation and rangel. hypertensive urgency, known hyperaldosteronism, hypertensive heart dz/renal dz: - HTN urgency admit here previously triggered by non-adherence to po meds due to nausea and vomiting - recent admission for similar 10/2017 - nicardipine gtt off. cont current meds. will increase hydralazine to 100 bid for better bp control chronic syst/diast(mixed) CHF: - likely hypertensive cardiomyopathy - continue home furosemide - no symptoms concerning for HF, appears euvolemic hypokalemia-->causing prolonged QT: - sec to hyperaldosternoism. - has required up to 140 meq qd K repletion in past, refused IV K repletion in ER - on PO repletion now, monitor closely and replete as needed in setting of prolonged QT aorta aneurysm: -4.1 cm ascending aorta on 03/2017 CT scan -sec to uncontrolled HTN -bp control, bp as doing -routine outpt aorta surveillance CKD: -creat running around 5.0 on recent visits, GFR 9 -stable here - nephrology following
--- NOTE | 2017-12-29 13:05 | PN ---
Progress Note, Physician History of Present Illness: Pt seen and examined at bedside. She remains in the ICU. She is asking to go home. She denies chest pain or palpitations. She is off of the drip. Her bp is not yet optimal. - Current Medication List Current Medications: Active Medications Acetaminophen (Tylenol -) 650 mg PO Q6H PRN PRN Reason: PAIN Last Admin: 12/28/17 15:11 Dose: 650 mg Atorvastatin Calcium (Lipitor -) 40 mg PO HS [facility] Last Admin: 12/28/17 22:09 Dose: Not Given Chlorhexidine Gluconate (Hibiclens For Decolonization -) 1 applic TP HS [facility] Last Admin: 12/28/17 22:05 Dose: 1 applic Clonidine HCl (Catapres Tts Patch -) 0.4 mg TD We@1000 [facility] Last Admin: 12/27/17 13:39 Dose: 0.4 mg Heparin Sodium (Porcine) (Heparin -) 5,000 unit SQ TID [facility] Last Admin: 12/29/17 06:23 Dose: Not Given Hydralazine HCl (Apresoline -) 100 mg PO BID [facility] Labetalol HCl (Normodyne -) 300 mg PO BID [facility] Last Admin: 12/29/17 10:20 Dose: 300 mg Mupirocin (Bactroban Ointment (For Decolonization) -) 1 applic NS BID [facility] Stop: 01/01/18 09:59 Last Admin: 12/29/17 09:25 Dose: Not Given Nifedipine (Procardia Xl -) 60 mg PO BID [facility] Last Admin: 12/29/17 09:24 Dose: 60 mg Spironolactone (Aldactone -) 50 mg PO BID [facility] Last Admin: 12/29/17 09:24 Dose: 50 mg - Objective Vital Signs: Vital Signs Temperature 98.7 F 12/29/17 10:00 Pulse Rate 90 12/29/17 10:00 Respiratory Rate 20 12/29/17 10:00 Blood Pressure 165/117 12/29/17 10:00 O2 Sat by Pulse Oximetry (%) 98 12/29/17 09:00 Constitutional: Yes: Calm Eyes: Yes: Conjunctiva Clear HENT: Yes: Atraumatic Neck: Yes: Supple Cardiovascular: Yes: S1, S2 Respiratory: Yes: CTA Bilaterally Gastrointestinal: Yes: Soft Genitourinary: Yes: WNL Musculoskeletal: Yes: WNL Edema: No Integumentary: Yes: Tattoos Neurological: Yes: Oriented Psychiatric: Yes: Oriented Labs: CBC, BMP 12/29/17 05:30 12/29/17 05:30 Problem List - Problems (1) Hypertensive emergency Code(s): I16.1 - HYPERTENSIVE EMERGENCY (2) Hypokalemia Code(s): E87.6 - HYPOKALEMIA (3) CKD (chronic kidney disease) Code(s): N18.9 - CHRONIC KIDNEY DISEASE, UNSPECIFIED Qualifiers: Qualified Code(s): N18.4 - Chronic kidney disease, stage 4 (severe) Assessment/Plan Current Medications Generic Name Dose Route Start Last Admin Trade Name Freq PRN Reason Stop Dose Admin Acetaminophen 650 mg 12/27/17 20:33 12/28/17 15:11 Tylenol - PO 650 mg Q6H PRN Administration PAIN Atorvastatin Calcium 40 mg 12/27/17 22:00 12/28/17 22:09 Lipitor - PO Not Given HS [facility] Chlorhexidine Gluconate 1 applic 12/27/17 22:00 12/28/17 22:05 Hibiclens For Decolonization - TP 1 applic HS [facility] Administration Clonidine HCl 0.4 mg 12/27/17 13:00 12/27/17 13:39 Catapres Tts Patch - TD 0.4 mg We@1000 [facility] Administration Heparin Sodium (Porcine) 5,000 unit 12/27/17 08:30 12/29/17 06:23 Heparin - SQ Not Given TID [facility] Hydralazine HCl 100 mg 12/29/17 11:45 Apresoline - PO BID [facility] Labetalol HCl 300 mg 12/29/17 10:00 12/29/17 10:20 Normodyne - PO 300 mg BID [facility] Administration Mupirocin 1 applic 12/27/17 10:00 12/29/17 09:25 Bactroban Ointment (For Decolonization) - NS 01/01/18 09:59 Not Given BID [facility] Nifedipine 60 mg 12/28/17 10:00 12/29/17 09:24 Procardia Xl - PO 60 mg BID [facility] Administration Spironolactone 50 mg 12/28/17 10:00 12/29/17 09:24 Aldactone - PO 50 mg BID [facility] Administration Laboratory Tests 12/28/17 12/28/17 05:30 05:30 Iron 58 Iron Saturation 22 Ferritin 215.0 Impression 1. Conn/hyperaldo 2. htn emergency 3. CKD 4. [place] 5. HTN poorly controlled 6. non compliance 7. vomiting 8. hypokalemia Plan - pt off of nicardipine - increase hydralazine dose - cont potassium supplements - cont spironolactone - monitor bp on PO meds - would not discharge today - compliance has been a problem with this pt - will follow
--- NOTE | 2017-12-29 13:25 | PN ---
Physical Exam: SUBJECTIVE: Patient is a 37 y/o female with a mast medical history of Conn's Syndrome, CHF, CKD, nSTEMI in 07/02 and uncontrolled HTN who presents Hypertensive Emergency 05/19 to Conn's Syndrome uncontrolled because of vomiting medications. Patient has no complaints today. Blood pressure at patients baseline. OBJECTIVE: Vital Signs Temperature 98.7 F 12/29/17 10:00 Pulse Rate 90 12/29/17 10:00 Respiratory Rate 20 12/29/17 10:00 Blood Pressure 165/117 12/29/17 10:00 O2 Sat by Pulse Oximetry (%) 98 12/29/17 09:00 GENERAL: Awake, alert, and fully oriented HEAD: Normal with no signs of trauma. EYES: Pupils constricted, EOMI EARS, NOSE, THROAT: Moist mucous membranes. LUNGS: Breath sounds equal, clear to auscultation bilaterally. HEART: RRR, normal S1 and S2 ABDOMEN: Soft, nontender, not distended, normoactive bowel sounds, MUSCULOSKELETAL: Normal range of motion at all joints. LOWER EXTREMITIES: warm, well-perfused. no edema SKIN: Warm, dry, normal turgor, no rashes or lesions noted. CBCD WBC 6.1 K/mm3 (4.0-10.0) 12/29/17 05:30 RBC 2.56 M/mm3 (3.60-5.2) L 12/29/17 05:30 Hgb 8.0 GM/dL (10.7-15.3) L 12/29/17 05:30 Hct 23.7 % (32.4-45.2) L 12/29/17 05:30 MCV 92.6 fl (80-96) 12/29/17 05:30 MCHC 33.9 g/dl (32.0-36.0) 12/29/17 05:30 RDW 15.6 % (11.6-15.6) 12/29/17 05:30 Plt Count 239 K/MM3 (134-434) D 12/29/17 05:30 MPV 8.1 fl (7.5-11.1) 12/29/17 05:30 CMP Sodium 136 mmol/L (136-145) 12/29/17 05:30 Potassium 4.0 mmol/L (3.5-5.1) 12/29/17 05:30 Chloride 100 mmol/L (98-107) 12/29/17 05:30 Carbon Dioxide 25 mmol/L (21-32) 12/29/17 05:30 Anion Gap 11 MMOL/L (8-16) 12/29/17 05:30 BUN 64 mg/dL (7-18) H 12/29/17 05:30 Creatinine 5.3 mg/dL (0.55-1.3) H 12/29/17 05:30 Creat Clearance w eGFR 9.01 (>60) 12/29/17 05:30 Calcium 8.7 mg/dL (8.5-10.1) 12/29/17 05:30 Total Bilirubin 0.5 mg/dL (0.2-1.0) 12/29/17 05:30 AST 50 U/L (15-37) H 12/29/17 05:30 ALT 97 U/L (13-61) H 12/29/17 05:30 Alkaline Phosphatase 92 U/L (45-117) 12/29/17 05:30 Total Protein 5.9 g/dl (6.4-8.2) L 12/29/17 05:30 Albumin 2.8 g/dl (3.4-5.0) L 12/29/17 05:30 Active Medications Acetaminophen (Tylenol -) 650 mg PO Q6H PRN PRN Reason: PAIN Last Admin: 12/28/17 15:11 Dose: 650 mg Atorvastatin Calcium (Lipitor -) 40 mg PO [facility] Last Admin: 12/28/17 22:09 Dose: Not Given Chlorhexidine Gluconate (Hibiclens For Decolonization -) 1 applic TP [facility] Last Admin: 12/28/17 22:05 Dose: 1 applic Clonidine HCl (Catapres Tts Patch -) 0.4 mg TD We@1000 [facility] Last Admin: 12/27/17 13:39 Dose: 0.4 mg Heparin Sodium (Porcine) (Heparin -) 5,000 unit SQ TID [facility] Last Admin: 12/29/17 06:23 Dose: Not Given Hydralazine HCl (Apresoline -) 100 mg PO BID [facility] Labetalol HCl (Normodyne -) 300 mg PO BID [facility] Last Admin: 12/29/17 10:20 Dose: 300 mg Mupirocin (Bactroban Ointment (For Decolonization) -) 1 applic NS BID [facility] Stop: 01/01/18 09:59 Last Admin: 12/29/17 09:25 Dose: Not Given Nifedipine (Procardia Xl -) 60 mg PO BID [facility] Last Admin: 12/29/17 09:24 Dose: 60 mg Spironolactone (Aldactone -) 50 mg PO BID [facility] Last Admin: 12/29/17 09:24 Dose: 50 mg ASSESSMENT/PLAN: Patient is a 37 y/o female with a past medical history of Conn's Syndrome, CHF, CKD, and uncontrolled HTN who presents for Hypertensive Emergency 2/2 to uncontrolled Conn's Syndrome due to vomiting and unable to take medications for ~3 days. Neuro Headache 2/2 to hypertensive emergency: resolved - patient given morphine 4mg in ED for pain - A & O x 3 Cardio Hypertensive Emergency 2/2 to Conn's Syndrome uncontrolled because unable to take po medications - home BP's usually ~155/100 - Clonidine .4 mg patch - Hydralazine 50 BID - Nifedipine 60 mg BID - lebatolol 300 mg BID - EKG changes, twave inversion likely 2/2 to hypokalemia, discussed with Dr. Santos - BP at patients baseline today Ascending Aortic Aneyrusm 2/2 to HTN - 4.[address] scan from 04/02 - continue to monitor Pulm SOB: resolved - on presentation, maintain O 2 sat > 92% GI nausea/vomiting 2/2 to Conn's Syndrome : resolved - ABD CT: small pericardial effusion, hepatomegaly with scattered cysts, free pelvic fluid - QTC prolonged, no antinausea medications Renal CKD stage 5 - BUN/Cr appears to be at baseline- Cr 5.0 - f/u with Dr. 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 due to insufficient imaging - f/u with Hypertensive specialtist - spironolactone 50 BID Hepatomegaly DVT ppx - Heparin TID Anemia - history, normocytic likely 2/2 to CKD - Iron studies: normal FEN - Na controlled diet Dispo: Patient blood pressure at base line, can go to tele floor today Visit type - Emergency Visit Emergency Visit: No - New Patient This patient is new to me today: No - Critical Care Critical Care patient: Yes Total Critical Care Time (in minutes): 45 Critical Care Statement: The care of this patient involved high complexity decision making to prevent further life threatening deterioration of the patient 's condition and/or to evaluate & treat vital organ system(s) failure or risk of failure.
--- NOTE | 2017-12-29 14:34 | DS ---
Physical Exam: SUBJECTIVE: Patient seen and examined at bedside this morning, resting comfortably in bed. Admits improvement of headache and nausea. Denies changes in vision, dizziness, chest pain, palpitations, shortness of breath, vomiting, diarrhea. OBJECTIVE: Vital Signs Period Temp Pulse Resp BP Sys/Li Pulse Ox Last 24 Hr 98.0 F-98.7 F 81-94 14-22 115-171/82-132 98-98 PHYSICAL EXAM GENERAL: Awake, alert, and fully oriented, in no acute distress. HEAD: Normocephalic, atraumatic EYES: PERRLA, extraocular movements intact, sclera anicteric. ENT: Oropharynx clear without exudates, moist mucous membranes. NECK: Supple without lymphadenopathy. LUNGS: Breath sounds equal, clear to auscultation bilaterally, no wheezes, no crackles, no accessory muscle use. HEART: Regular rate and rhythm, S1, S2 without murmur. ABDOMEN: Soft, nontender, nondistended, hypoactive bowel sounds, no guarding, no rebound. EXTREMITIES: 2+ dorsalis pedis and radial pulses. Warm, well-perfused, no edema in B/L lower extremities. NEUROLOGICAL: Cranial nerves II through XII grossly intact. Normal speech. Strength 5/5 B/L upper and lower extremities. PSYCH: Appropriate mood and affect upon my encounter today. SKIN: Warm, dry, no rashes or lesions noted. LABS Laboratory Results - last 24 hr 12/28/17 12/29/17 12/29/17 05:30 05:30 05:30 WBC 6.1 RBC 2.56 L Hgb 8.0 L Hct 23.7 L MCV 92.6 MCH 31.4 MCHC 33.9 RDW 15.6 Plt Count 239 D MPV 8.1 Sodium 136 Potassium 4.0 Chloride 100 Carbon Dioxide 25 Anion Gap 11 BUN 64 H Creatinine 5.3 H Creat Clearance w eGFR 9.01 Random Glucose 103 Calcium 8.7 Iron 58 TIBC 265 Iron Saturation 22 Total Bilirubin 0.5 AST 50 H ALT 97 H Alkaline Phosphatase 92 Total Protein 5.9 L Albumin 2.8 L HOSPITAL COURSE: Date of Admission:12/27/17 Date of Discharge: 12/29/17 Patient is a 37 year old female with history of Conn syndrome, chronic kidney disease, uncontrolled hypertension partly due to medication noncompliance presented with headache and abdominal pain. Admitted for hypertensive emergency. CXR showed cardiomegaly, hyperinflation, with diminished lung markings. Abdominal CT showed cardiomegaly, small pleural effusion, hepatomegaly , heptaic cysts, free pelvic fluid. No acute pathology within abdomen noted. Head CT showed no intracranial hemorrhage. She was started on Nicardipine drip, and was tapered to Hydralazine PO, Nifedipine PO, and Labetalol PO. Her blood pressure gradually lowered towards her baseline. Clonidine Patch 0.4mg weekly. Conn syndrome managed with Spironolactone. Cardiology consult discussed her troponinemia was likely due to demand ischemia. Troponins trended down from admission. She complained of abdominal pain and GI consult discussed outpatient follow up for hepatomegaly and hepatic cysts. Nephrology consult discussed her CKD with renal function at baseline. Held Lasix due to hypokalemia. Hypokalemia was repleted. Patient was discharged to continue with home medications: Labetalol, Hydralazine, Nifedipine, Lasix, Spironolactone, Clonidine patch, Lipitor. Labetalol dose changed to 300mg PO BID, and Lasix to 80mg QD. Instructed to follow up with PCP at [place], [facility], [facility], GI within one week of discharge. Minutes to complete discharge: 35 Discharge Summary Reason For Visit: HYPERTENSIVE URGENCY Current Active Problems Headache (Acute) Hypertensive emergency (Acute) Hypokalemia (Acute) Adrenal adenoma (Chronic) Anemia (Chronic) CKD (chronic kidney disease) (Chronic) Hyperaldosteronism (Chronic) Condition: Improved - Instructions Diet, Activity, Other Instructions: You were admitted for severely elevated high blood pressure. You were treated with Intravenous medicine to lower the blood pressure. It is very important you continue taking your home oral blood pressure medicines as directed. We have changed you Labetalol dose to 300mg twice a day. Please check your blood pressure 2x per day. It is very important that you check your blood pressure regularly throughout the day. It is important that you follow up with your primary care physician within one week of your discharge. It is important you follow up with the [facility] Dr. Alexander (heart doctor) within one week of discharge It is important you follow up with the [facility]erson (kidney doctor) within one week of discharge. Continue Lasix 80mg orally daily . At that appointment you will need to check your kidney function tests (BUN and Creatinine). It is important you follow up with the GI doctor within two weeks of discharge. If you experience fevers, chills, headache, dizziness, change in vision, continuous abdominal pain, vomiting, or sudden elevation in blood pressure please return to the nearest Emergency Department. Referrals: Howard Alexnader MD [Staff Physician] - Negro Fowler MD [Staff Physician] - Stoney Sunshine MD [Staff Physician] - Disposition: HOME - Home Medications Comprehensive Discharge Medication List: Ambulatory Orders Labetalol HCl [Normodyne -] 300 mg PO BID 04/01/17 Clonidine Patch [Catapres Tts Patch -] 0.3 mg TD WEEKLY 04/02/17 Atorvastatin Ca [Lipitor] 40 mg PO HS #30 tablet 06/20/17 Hydralazine HCl 50 mg PO BID 10/13/17 Nifedipine [Procardia Xl] 60 mg PO BID 10/13/17 Spironolactone [Aldactone -] 50 mg PO BID 10/13/17 Furosemide [Lasix] 80 mg PO DAILY 30 Days #30 tablet 12/29/17 This patient is new to me today: No Emergency Visit: Yes ED Registration Date: 12/27/17 Care time: The patient presented to the Emergency Department on the above date and was hospitalized for further evaluation of their emergent condition. Critical Care patient: No - Discharge Referral Referred to [facility] No
--- NOTE | 2017-12-29 14:46 | PN ---
Teaching Attending Note Name of Resident: Juan Márquez ATTENDING PHYSICIAN STATEMENT I saw and evaluated the patient. I reviewed the resident's note and discussed the case with the resident. I agree with the resident's findings and plan as documented. SUBJECTIVE: Patient is comfortable with no acute distress, feeling better wants to go home. OBJECTIVE: Vital Signs Temperature 98.7 F 12/29/17 10:00 Pulse Rate 92 H 12/29/17 12:00 Respiratory Rate 22 12/29/17 12:00 Blood Pressure 153/113 repeat 126/94 12/29/17 12:00 O2 Sat by Pulse Oximetry (%) 98 12/29/17 09:00 CBCD WBC 6.1 K/mm3 (4.0-10.0) 12/29/17 05:30 RBC 2.56 M/mm3 (3.60-5.2) L 12/29/17 05:30 Hgb 8.0 GM/dL (10.7-15.3) L 12/29/17 05:30 Hct 23.7 % (32.4-45.2) L 12/29/17 05:30 MCV 92.6 fl (80-96) 12/29/17 05:30 MCHC 33.9 g/dl (32.0-36.0) 12/29/17 05:30 RDW 15.6 % (11.6-15.6) 12/29/17 05:30 Plt Count 239 K/MM3 (134-434) D 12/29/17 05:30 MPV 8.1 fl (7.5-11.1) 12/29/17 05:30 CMP Sodium 136 mmol/L (136-145) 12/29/17 05:30 Potassium 4.0 mmol/L (3.5-5.1) 12/29/17 05:30 Chloride 100 mmol/L (98-107) 12/29/17 05:30 Carbon Dioxide 25 mmol/L (21-32) 12/29/17 05:30 Anion Gap 11 MMOL/L (8-16) 12/29/17 05:30 BUN 64 mg/dL (7-18) H 12/29/17 05:30 Creatinine 5.3 mg/dL (0.55-1.3) H 12/29/17 05:30 Creat Clearance w eGFR 9.01 (>60) 12/29/17 05:30 Random Glucose 103 mg/dL (74-106) 12/29/17 05:30 Calcium 8.7 mg/dL (8.5-10.1) 12/29/17 05:30 Total Bilirubin 0.5 mg/dL (0.2-1.0) 12/29/17 05:30 AST 50 U/L (15-37) H 12/29/17 05:30 ALT 97 U/L (13-61) H 12/29/17 05:30 Alkaline Phosphatase 92 U/L (45-117) 12/29/17 05:30 Total Protein 5.9 g/dl (6.4-8.2) L 12/29/17 05:30 Albumin 2.8 g/dl (3.4-5.0) L 12/29/17 05:30 CARDIAC ENZYMES Creatine Kinase 201 IU/L (26-192) H 12/27/17 12:07 Troponin I 0.25 ng/ml (0.00-0.05) H 12/27/17 12:07 Current Medications Generic Name Dose Route Start Last Admin Trade Name Freq PRN Reason Stop Dose Admin Acetaminophen 650 mg 12/27/17 20:33 12/28/17 15:11 Tylenol - PO 650 mg Q6H PRN Administration PAIN Atorvastatin Calcium 40 mg 12/27/17 22:00 12/28/17 22:09 Lipitor - PO Not Given HS [facility] Chlorhexidine Gluconate 1 applic 12/27/17 22:00 12/28/17 22:05 Hibiclens For Decolonization - TP 1 applic HS [facility] Administration Clonidine HCl 0.4 mg 12/27/17 13:00 12/27/17 13:39 Catapres Tts Patch - TD 0.4 mg We@1000 BRET Administration Heparin Sodium (Porcine) 5,000 unit 12/27/17 08:30 12/29/17 06:23 Heparin - SQ Not Given TID BRET Hydralazine HCl 100 mg 12/29/17 11:45 Apresoline - PO BID BRET Labetalol HCl 300 mg 12/29/17 10:00 12/29/17 10:20 Normodyne - PO 300 mg BID BRET Administration Mupirocin 1 applic 12/27/17 10:00 12/29/17 09:25 Bactroban Ointment (For Decolonization) - NS 01/01/18 09:59 Not Given BID BRET Nifedipine 60 mg 12/28/17 10:00 12/29/17 09:24 Procardia Xl - PO 60 mg BID BRET Administration Spironolactone 50 mg 12/28/17 10:00 12/29/17 09:24 Aldactone - PO 50 mg BID BRET Administration CT/ABDOMEN PELVIS CT W/O CONTR. The study is markedly limited without the use of any contrast material, as well as the patient's poor cooperation. Evaluation of the lung bases demonstrates a moderately enlarged heart with a small pericardial effusion. There are areas of groundglass opacification throughout the lower lobes suspicious for acute congestion. Clinical correlation is advised. Small pleural effusions are also present. The liver is enlarged measuring 23.5 cm in craniocaudad dimension. There are several hypodensities within the liver that most likely represent small cysts. Some of these are too small to accurately characterize. The spleen is not enlarged. The pancreas, adrenal glands and kidneys demonstrate no significant abnormalities. There is a 2 cm right renal cyst. The gallbladder is clear. There is no evidence of intra- abdominal or retroperitoneal lymphadenopathy or fluid collections. There is no evidence of pneumoperitoneum, bowel obstruction or intra-abdominal abscess. There is no CT evidence of acute appendicitis or diverticulitis. Examination of the pelvis demonstrates free fluid within the cul-de-sac. No evidence of pelvic masses, fluid collections or lymphadenopathy. The uterus has been removed. There are mild edematous changes throughout the subcutaneous tissues of the abdomen and pelvis. This may be on the basis of cardiac decompensation. Clinical correlation is advised. There is no evidence of acute bony abnormalities. Since a prior study of 10/21/2017, there is been no significant change. IMPRESSION: 1. Cardiomegaly, small pericardial effusion, mild congestion and small bilateral pleural effusions. 2. Hepatomegaly with scattered hepatic cysts. 3. Subcutaneous edema. 4. Free pelvic fluid, no acute pathology within the abdomen or pelvis. No significant change since 10/21/2017. Please see above discussion. Reported By: Ubaldo Palmer MD 12/27/17 0859 PE: see resident's note ASSESSMENT AND PLAN: This is a 37 year old female with a significant PMHx of uncontrolled HTN, hyperaldosteronism, CKD who presented to the hospital complaining of having headache with elevated BP of 214/152. #Hypertensive emergency: improved off Cardine drip now, started the LAbetolol 300mg po bid , blood pressure improved to 126/94 today, discussed with ok to discharge patient home, continue her home Lasix 80mg po daily , patient is non compliance with her medications. Continue d home meds. #Conn's Syndrome presented with Low potassium ,continue to replete potassium . #[place]ISON on CKD: baseline 4.1-4.5, today 5.1-->5.3 today, Nephrology Dr Sunshine appreciated. patient follows up with her [place] hospital MD # Hepatosplenomegaly with several hypodense areas within the Liver with small cysts, follow with GI as an outpatient # Headache:Improved post improving of BP #nausea and vomiting: no further episodes in the hospital #Anemia: Hgb 9.0 in the setting of chronic Kidney disease [facility] PATIENT HOME
[2017-12-29 14:56] VITALS: BP 132/94; PULSE 78; TEMP 98
[2017-12-29] MEDS ORDERED: ACETAMINOPHEN 325 MG TABLET (FP) PO PRN (14:56)
[2017-12-29] MEDS ORDERED: MUPIROCIN 2% TOPICAL OINTMENT FOR DECOLONIZATION NS SCH (22:00)
[2017-12-29] MEDS ORDERED: CHLORHEXIDINE GLUCONATE 4% CLEANSER FOR DECOLONIZATION TP SCH (22:00)
[2017-12-29] MEDS ORDERED: NIFEdipine E.R 60 MG TABLET (UD) PO SCH (22:00)
[2017-12-29] MEDS ORDERED: ATORVASTATIN CA 40 MG TABLET (FP) PO SCH (22:00)
[2017-12-29] MEDS ORDERED: SPIRONOLACTONE 25 MG TABLET (FP) PO SCH (22:00)
[2017-12-29] MEDS ORDERED: HEPARIN NA (PORCINE) 5,000 UNITS/ML 1ML VIAL SQ SCH (22:00)
[2018-01-03] MEDS ORDERED: cloNIDine-TTS 0.2 MG/24 HOURS PATCH.TDWK TD SCH (10:00)
== END 2017-12-29 15:59 | disposition home or self-care (01) | DRG 199 ==
LOC: JER 04:23 → JERBED 06:48 → JICU 09:10
PROVIDERS: ADMIT Internal Medicine; ATTEND Internal Medicine
DX: I16.1 Hypertensive emergency (principal); I16.0 Hypertensive urgency; N17.9 Acute kidney failure, unspecified; I13.2 Hypertensive heart and chronic kidney disease with heart failure and with stage 5 chronic kidney disease, or end stage renal disease; I50.42 Chronic combined systolic (congestive) and diastolic (congestive) heart failure; N18.5 Chronic kidney disease, stage 5; I24.8 Other forms of acute ischemic heart disease; I43 Cardiomyopathy in diseases classified elsewhere; K76.89 Other specified diseases of liver; I71.2 Thoracic aortic aneurysm, without rupture; E88.09 Other disorders of plasma-protein metabolism, not elsewhere classified; R16.2 Hepatomegaly with splenomegaly, not elsewhere classified; D35.00 Benign neoplasm of unspecified adrenal gland; E26.01 Conn's syndrome; I45.81 Long QT syndrome; E26.9 Hyperaldosteronism, unspecified; I34.0 Nonrheumatic mitral (valve) insufficiency; E26.09 Other primary hyperaldosteronism; Z90.710 Acquired absence of both cervix and uterus; Z91.14 Patient's other noncompliance with medication regimen; I25.2 Old myocardial infarction; R51 Headache; R11.2 Nausea with vomiting, unspecified; E87.6 Hypokalemia; Z87.891 Personal history of nicotine dependence; D64.9 Anemia, unspecified
CPT/HCPCS: 36415; 70450-TC; 71045-TC-FY; 74176-TC; 80053; 81003; 81015; 82436; 82550; 82553; 82570; 82728; 83540; 83550; 83690; 83735; 84100; 84132; 84133; 84156; 84300; 84484; 84703; 85025; 85027; 87086; 93005; 93010; 99285-25; J0735; J1644; J7030

== ENCOUNTER 2017-12-31 00:49 | Inpatient (IN) | payer OTHER ==
[2017-12-31 01:06] VITALS: BMI 20.9
[2017-12-31] MEDS ORDERED: LABETALOL HCL 5 MG/1 ML (100MG/20 ML VIAL) IVPUSH ONE ×2 (01:15→01:16)
[2017-12-31] MEDS ORDERED: ASPIRIN 325 MG TABLET PO ONE (01:16)
--- NOTE | 2017-12-31 01:34 | PDOC ---
History of Present Illness - General History Source: Patient Exam Limitations: No Limitations - History of Present Illness Initial Comments: 12/31/17 01:27 Patient is 37F with history of Conn Syndrome, CKD, HTN, CHF recently discharged from hospital for HTN now came to er for high BP and chest pain. Pain started yesterday, constant, increasing, pressure type, non radiating associated difficulty in breathing, lightheadedness. Denies headache, neck pain, abdominal pain, nausea, and vomiting. Denies fevers, chills. Denies focal neuro deficits. Denies pain with urination. 12/31/17 02:37 <Benoit Wen - Last Filed: 12/31/17 06:48> <Juan Ivey - Last Filed: 12/31/17 22:33> - General Chief Complaint: Chest Pain Stated Complaint: CHEST DISCOMFORT Time Seen by Provider: 12/31/17 01:15 Past History - Past Medical History Anemia: No Cardiac Disorders: Yes COPD: No Disorders: Yes (CHRONIC RENAL DISEASE) HTN: Yes - Immunization History Immunization Up to Date: Yes - Suicide/Smoking/Psychosocial Hx Smoking History: Never smoked Have you smoked in the past 12 months: No If you are a former smoker, when did you quit?: january Information on smoking cessation initiated: No 'Breaking Loose' booklet given: 10/21/17 Hx Alcohol Use: No Drug/Substance Use Hx: No Substance Use Type: None Hx Substance Use Treatment: No <Benoit Wen - Last Filed: 12/31/17 06:48> <Juan Ivey - Last Filed: 12/31/17 22:33> - Past Medical History Allergies/Adverse Reactions: Allergies Allergy/AdvReac Type Severity Reaction Status Date / Time No Known Allergies Allergy Verified 12/31/17 01:03 Home Medications: Ambulatory Orders Atorvastatin Ca [Lipitor] 40 mg PO HS 30 Days #30 tablet 12/29/17 Clonidine Patch [Catapres Tts Patch -] 0.3 mg TD WEEKLY 14 Days #2 patch Hydralazine HCl 50 mg PO BID 30 Days #60 tablet 12/29/17 Labetalol HCl [Normodyne -] 300 mg PO BID 30 Days #60 tablet 12/29/17 Nifedipine [Procardia Xl] 60 mg PO BID 30 Days #60 tab 12/29/17 Spironolactone [Aldactone -] 50 mg PO BID 30 Days #60 tab 12/29/17 Review of Systems - Review of Systems Able to Perform ROS?: Yes Comments:: Constitutional - no reported Fever, Chills, HEENT: no reported vision changes, sore throat Respiratory: no reported cough, sob, hemoptysis Cardiac: +chest pain, leg swelling no reported palpitations, light headedness, Abd/GI: no reported abd pain, nausea, vomiting, blood per rectum, melena, diarrhea : no reported dysuria, frequency, discharge Musculskelatal - no reported back pain, joint swelling skin - no reported bruising, erythema, rash neurological: no reported headache, numbness, focal weakness, tingling, ataxia, hematologic: no reported easy bruising, easy bleeding <Juan Ivey - Last Filed: 12/31/17 22:33> *Physical Exam - Vital Signs Last Vital Signs Temp Pulse Resp BP Pulse Ox 97.3 F L 84 26 H 221/153 100 12/31/17 01:04 12/31/17 01:04 12/31/17 01:04 12/31/17 01:04 12/31/17 01:04 <Benoit Wen - Last Filed: 12/31/17 06:48> - Vital Signs Last Vital Signs Temp Pulse Resp BP Pulse Ox 98 F 60 16 128/94 97 12/31/17 18:00 12/31/17 18:22 12/31/17 18:00 12/31/17 18:22 12/31/17 07:00 - Physical Exam Comments: GENERAL: The patient is awake, alert, and fully oriented, Nontoxic - in no acute distress, anasarcic (puffy eyelids, LE edema) HEAD: Normocephalic, atraumatic. EYES: extraocular movements intact, sclera anicteric, conjunctiva clear. ENT: Normal voice, Moist mucous membranes. NECK: Normal range of motion, supple LUNGS: Breath sounds equal, clear to auscultation bilaterally. No wheezes, no rhonchi, no rales. HEART: Regular rate and rhythm, normal S1 and S2 without murmur, rub or gallop. ABDOMEN: Soft, nontender, . No guarding, no rebound. . No CVA tenderness EXTREMITIES: Normal range of motion, b/l pitting edema in the LE) NEUROLOGICAL: No facial assymetry, Normal speech, moving all 4 extremities sponantously and symmetrically PSYCH: Normal mood, normal affect. SKIN: Warm, Dry, normal turgor, <Juan Ivey - Last Filed: 12/31/17 22:33> ED Treatment Course - LABORATORY CBC & Chemistry Diagram: 12/31/17 01:30 12/31/17 02:40 - RADIOLOGY Radiology Studies Ordered: Category Date Time Status CXRPORT [CHEST X-RAY PORTABLE*] [RAD] Stat Radiology 12/31/17 01:18 Ordered <Benoit Wen - Last Filed: 12/31/17 06:48> - LABORATORY CBC & Chemistry Diagram: 12/31/17 05:15 12/31/17 05:15 - ADDITIONAL ORDERS Additional order review: 12/31/17 01:30 RBC 2.43 L MCV 92.5 MCHC 33.3 RDW 15.8 H MPV 8.0 Neutrophils % 82.4 Lymphocytes % 11.0 Monocytes % 3.3 L Eosinophils % 2.6 D Basophils % 0.7 - Medications Given in the ED: ED Medications Discontinued Medications Generic Name Dose Route Start Last Admin Trade Name Freq PRN Reason Stop Dose Admin Aspirin 325 mg 12/31/17 01:16 12/31/17 01:58 Asa - PO 12/31/17 01:17 325 mg ONCE ONE Administration Aspirin 162 mg 12/31/17 04:23 12/31/17 04:37 Asa - PO 12/31/17 04:24 Not Given ONCE ONE Epoetin Kal 2,000 unit 12/31/17 05:26 12/31/17 06:15 Epogen - SQ 12/31/17 05:27 2,000 unit ONCE ONE Administration Nicardipine HCl 25 mg/ 250 mls @ 25 mls/hr 12/31/17 02:45 12/31/17 03:49 Dextrose IVPB Not Given TITR BRET Protocol 2.5 MG/HR Iron Sucrose 100 mg/ Sodium 100 mls @ 200 mls/hr 12/31/17 05:23 12/31/17 06: 14 Chloride IVPB 12/31/17 05:52 200 mls/hr ONCE ONE Administration Labetalol HCl 10 mg 12/31/17 01:15 12/31/17 02:12 Normodyne Injection - IVPUSH 12/31/17 01:16 Not Given ONCE ONE Labetalol HCl 20 mg 12/31/17 01:16 12/31/17 01:54 Normodyne Injection - IVPUSH 12/31/17 01:17 20 mg ONCE ONE Administration Morphine Sulfate 4 mg 12/31/17 01:53 12/31/17 01:58 Morphine Injection - IVPUSH 12/31/17 01:54 4 mg ONCE ONE Administration Morphine Sulfate 4 mg 12/31/17 02:37 12/31/17 03:06 Morphine Injection - IVPUSH 12/31/17 02:38 4 mg ONCE ONE Administration Morphine Sulfate 4 mg 12/31/17 02:40 12/31/17 03:07 Morphine Injection - IVPUSH 12/31/17 02:41 Not Given ONCE ONE Morphine Sulfate 4 mg 12/31/17 05:27 12/31/17 06:21 Morphine Sulfate IVPUSH 4 mg Q4H PRN Administration PAIN LEVEL 6-10 Ondansetron HCl 4 mg 12/31/17 01:53 12/31/17 01:58 Zofran Injection IVPB 12/31/17 01:54 4 mg ONCE ONE Administration Polyethylene Glycol 17 gm 12/31/17 08:30 12/31/17 11:05 Miralax (For Daily Use) - PO 12/31/17 08:31 17 grams ONCE ONE Administration Potassium Chloride 20 meq 12/31/17 07:29 12/31/17 07:46 K-Dur - PO 12/31/17 07:30 20 meq ONCE ONE Administration Trimethobenzamide HCl 200 mg 12/31/17 11:20 12/31/17 12:22 Tigan Injection - IM 12/31/17 11:21 Not Given ONCE ONE <LoniJuan haque - Last Filed: 12/31/17 22:33> Medical Decision Making - Medical Decision Making 12/31/17 01:35 Patient is 37F with history of Conn Syndrome, CKD, HTN, CHF recently discharged from hospital for HTN came to er for high BP and chest pain. Pain started yesterday, constant, increasing, pressure type, non radiating associated difficulty in breathing, lightheadedness. Denies headache, neck pain, abdominal pain, nausea, and vomiting. Denies fevers, chills. Denies focal neuro deficits. Denies pain with urination. ekg: nsr, qtc 491, hr 84, No st elevation ,t wave inversion in v5 qnd v6 ( old compared done on 12/27/17) we will give her labetalol 20mg iv push. aim is to decrease map by 10to 20 percent in 1st hour ie around 140. Then to decrease MAp by 5 to 15 percent in next 24 hour. ie MAp 133 12/31/17 01:40 MAP 165. Pt states she took all of her PO meds at 6pm. we will start her on labetalol drip. CMP and cardiac profile hemolysed. we will send a second sample. 12/31/17 03:13 symphony microbloged discussed with icu resident Dr cabrera and admitting symphony Dr plummer. we will start patient on labetalol drip and admit her in icu after cmp labs are back. 12/31/17 03:40 CMP back troponin 0.28. can be because of demand ischemia or because of decrease clearance because of ckd <Benoit Wen - Last Filed: 12/31/17 06:48> *DC/Admit/Observation/Transfer - Discharge Dispostion Decision to Admit order: Yes <Benoit Wen - Last Filed: 12/31/17 06:48> <Juan Ivey - Last Filed: 12/31/17 22:33> Diagnosis at time of Disposition: Hypertensive emergency
--- NOTE | 2017-12-31 01:51 | PDOC ---
Attending Attestation - Resident Resident Name: Benoit Wen - ED Attending Attestation I have performed the following: I have examined & evaluated the patient, The case was reviewed & discussed with the resident, I agree w/resident's findings & plan, Exceptions are as noted - HPI HPI: 12/31/17 01:51 37y F hx of hx of conn syndrome, ckd (baseline cr 4s), htn, chf, presents with complaint of chest pressure. Pt had a recent admission ICU admission for hypertensive emergency. Pt notes cp started today associated with sob and pt notes increased b/l extremity swelling. pt denies any current headache, neck pain, abd pain, n/v, diaphoresis, numbness/tingling/weakness, vision chagnes. on exam: general: no acute distress, anasarcic pulm: cta b/l card: rrr abd: soft nontender ext: pitting edema b/l in LE ddx: likely htn secondary to aldosteronism conside rpossible new acute on chronic renal failure will treat with labatelol if necessary will start cardene gtt as that was what was effective for her last time 12/31/17 03:35 labs reviewed noted for anemia, cr approx baseline trop at .3 - will continue to trend no signs of JONNATHAN on ekg Pts bp improved slightly with 20mg labatelol after discussion with ICU team who knows pt well, will start labetalol gtt rather than cadene - Physicial Exam PE: 12/31/17 22:11 see above - Critical Care Time Total Critical Care Time: 45 Critical Care Statement: The care of this patient involved high complexity decision making to prevent further life threatening deterioration of the patient 's condition and/or to evaluate & treat vital organ system(s) failure or risk of failure. - Medical Decision Making 12/31/17 22:11 see above Heart Score/ECG Review - ECG Impressions Comment:: 12/31/17 02:43 Twelve-lead EKG was performed and reviewed by me. There is normal sinus rhythm with a normal rate. rate of 84 twi in lateral leads no jonnathan
[2017-12-31] MEDS ORDERED: morphine CARPU-JECT 4 MG/1 ML DISP.SYRIN IVPUSH ONE ×3 (01:53→02:40)
[2017-12-31] MEDS ORDERED: ONDANSETRON 4 MG/2 ML VIAL IVPB ONE (01:53)
[2017-12-31 01:56] LABS: BASO % 0.7 % (0-2.0); EOS % 2.6 % (0-4.5); HEMATOCRIT 22.4 % (32.4-45.2); HEMOGLOBIN 7.5 GM/dL (10.7-15.3); MCH 30.8 pg (25.7-33.7); MCHC 33.3 g/dl (32.0-36.0); MEAN CELL VOLUME 92.5 fl (80-96); MONO % 3.3 % (3.8-10.2); NEUT % 82.4 % (42.8-82.8); PLATELET COUNT 215 K/MM3 (134-434); RBC 2.43 M/mm3 (3.60-5.2); RDW 15.8 % (11.6-15.6); WHITE BLOOD COUNT 4.9 K/mm3 (4.0-10.0)
[2017-12-31] MEDS ORDERED: morphine SULFATE 4 MG/ML VIAL ONE ×2 (01:56→02:53)
[2017-12-31] MEDS ORDERED: ASPIRIN COATED 81 MG TABLET.EC ONE (01:57)
[2017-12-31] MEDS ORDERED: ONDANSETRON 4 MG/2 ML VIAL ONE (01:57)
[2017-12-31] MEDS ORDERED: ASPIRIN 325 MG TABLET ONE (01:59)
[2017-12-31 02:22] LABS: URINE APPEARANCE CLEAR; URINE BILIRUBIN NEGATIVE (<2.0 mg/dL); URINE COLOR LTYELLOW; URINE GLUCOSE (UA) NEGATIVE (NEGATIVE); URINE KETONE NEGATIVE (NEGATIVE); URINE NITRITE NEGATIVE (NEGATIVE); URINE UROBILINOGEN NEGATIVE mg/dL (0.2-1.0)
[2017-12-31 02:25] LABS: URINE LEUK ESTERASE 1+ (NEGATIVE); URINE PROTEIN 2+ (NEGATIVE)
[2017-12-31 02:26] LABS: EPI CELLS RARE /HPF (FEW)
[2017-12-31] MEDS ORDERED: NICARDIPINE 25 MG in DEXTROSE 5%-WATER - 240 ML IVPB SCH (02:45)
[2017-12-31] MEDS ORDERED: LABETALOL HCL 5 MG/1 ML (200MG/40ML VIAL) IVPB ONE (02:55)
[2017-12-31 03:18] LABS: ALBUMIN 2.6 g/dl (3.4-5.0); ANION GAP 8 MMOL/L (8-16); BILIRUBIN,TOTAL 0.6 mg/dL (0.2-1.0); BLOOD UREA NITROGEN 64 mg/dL (7-18); CALCIUM 8.4 mg/dL (8.5-10.1); CHLORIDE 106 mmol/L (98-107); CO2 26 mmol/L (21-32); CREATININE 4.9 mg/dL (0.55-1.3); GLUCOSE,RANDOM 96 mg/dL (74-106); POTASSIUM 3.8 mmol/L (3.5-5.1); SGOT/AST 33 U/L (15-37); SGPT/ALT 74 U/L (13-61); SODIUM 140 mmol/L (136-145); TOT PROT 5.5 g/dl (6.4-8.2)
[2017-12-31 03:21] LABS: ALK PHOS 87 U/L (45-117)
[2017-12-31] MEDS: LABETALOL HCL INJECTION 1,000 MG in DEXTROSE 5%-WATER - 800 ML IV SCH (03:48)
--- NOTE | 2017-12-31 04:15 | PN ---
Teaching Attending Note Name of Resident: Jovita Cardenas ATTENDING PHYSICIAN STATEMENT I saw and evaluated the patient. I reviewed the resident's note and discussed the case with the resident. I agree with the resident's findings and plan as documented. SUBJECTIVE:er for high BP and chest pain. Patient is 37 year old woman with history of Conn's Syndrome, CKD, HTN and CHF who presents with high BP and chest pain. She was recently discharged from hospital for HTNsive emergency. Chest pain started yesterday, is constant, increasing, pressure type, non radiating associated difficulty in breathing, and lightheadedness. Denies headache, neck pain, abdominal pain, nausea, and vomiting. Denies fevers, chills, focal neuro deficits or dysuria. Started on IV labetalol drip in the ER and will be admitted to the ICU. Patient is an [employer] and gets her care at the [facility]. OBJECTIVE: Alert Vital Signs Period Temp Pulse Resp BP Sys/Li Pulse Ox Last 24 Hr 97.3 F 84 26 221/153 100 HEENT: No Jaundice, eye redness or discharge, PERRLA, EOMI. Normocephalic, atraumatic. External ears are normal and hearing is grossly intact. No nasal discharge. Neck: Supple, nontender. No palpable adenopathy or thyromegaly. No JVD Chest: Good effort. Clear to auscultation and percussion. Heart: Regular. No S3, rub or murmur Abdomen: Not distended, soft, nontender and no HSM. No rebound or guarding. Normoactive bowel sounds. Ext: Peripheral pulses intact. Leg edema. Skin: Warm and dry. No petechiae, rash or ecchymosis. Neuro: Alert. Oriented x3. CN 2-12 grossly intact. Sensation grossly intact in all four extremities and DTR are symmetric. Current Medications Generic Name Dose Route Start Last Admin Trade Name Freq PRN Reason Stop Dose Admin Labetalol HCl 1,000 mg/ 1,000 mls @ 240 mls/hr 12/31/17 03:00 12/31/17 03:48 Dextrose IV 4 mg/min TITR BRET 240 mls/hr Administration 4 MG/MIN Home Medications Medication Instructions Recorded Atorvastatin Ca [Lipitor] 40 mg PO HS 30 Days #30 tablet 09/14/18 Clonidine Patch [Catapres Tts 0.3 mg TD WEEKLY 14 Days #2 patch 12/29/17 Patch -] Furosemide [Lasix] 80 mg PO DAILY 30 Days #30 tablet 12/29/17 Hydralazine HCl 50 mg PO BID 30 Days #60 tablet 12/29/17 Labetalol HCl [Normodyne -] 300 mg PO BID 30 Days #60 tablet 12/29/17 Nifedipine [Procardia Xl] 60 mg PO BID 30 Days #60 tab 12/29/17 Spironolactone [Aldactone -] 50 mg PO BID 30 Days #60 tab 12/29/17 Abnormal Lab Results 12/31/17 12/31/17 12/31/17 01:30 02:04 02:40 RBC 2.43 L Hgb 7.5 L Hct 22.4 L RDW 15.8 H Monocytes % 3.3 L BUN 64 H Creatinine 4.9 H Calcium 8.4 L ALT 74 H Troponin I 0.28 H* Total Protein 5.5 L Albumin 2.6 L Urine Protein 2+ H Urine Blood 1+ H Ur Leukocyte Esterase 1+ H D ASSESSMENT AND PLAN: 1. Hypertensive Emergency and Chest pain - Started on her oral antihypertensive drugs as well as IV labetall drip. Chest pain improved with IV morphine. If pain reappears and persists, will rule out aortic aneurysm. Has chronic troponin elevation and fixed t wave changes on EKG - will rule out ACS. Treat UTI with rocephin. 2. CKD stage 4 - Consult nephrology. Needs preparation for renal replacement therapy including referral for kidney transplant. Avoid nephrotoxic agents such as NSAIDS, aminoglycosides, contrast dyes and certain Alternative medicine products. 3. Anemia - Likley due to CKD. Would benefit from Procrit therapy once iron replete - give IV venofer 500 mg qd x 2. 4. DVT prophylaxis - Heparin 5000u sq tid. 5. Advance directives - Full code
[2017-12-31] MEDS ORDERED: ASPIRIN 81 MG CHEWABLE TABLETS PO ONE (04:23)
--- NOTE | 2017-12-31 04:55 | CONSULT ---
Consultation: REQUESTING PROVIDER: Dr. Laboy CONSULT REQUEST: We have been asked to medically evaluate this patient for Dr. Laboy. HISTORY OF PRESENT ILLNESS: 37 y.o. F w/ PMHx. of HTN 2/2 Conn's syndrome ( questionable medication compliance), CKD, Aortic Anyeurism (4.1 cm) and mixed CHF(Echo in 07/02), presents to the ED with chest pain, shortness of breath and headache. Pt. states that the chest pi bega Satuday morning and was not associated with any activity. Pt. describes the pain as localized to the middle of her chest that "clenches for 2-3 min followed by a dull pain," denies radiation of pain anywhere else. Pt. has shortness of breath at rest and states that she cannot lie down flat. Pt. states that she had a headache on admission to the ED but that it has since subsided after given morphine. Pt. endorsed having numbness and tingling in the feet on admission but it has since subsided. Social Hx: Patient works at the [employer], quit smoking one year ago, denies alcohol or tobacco use. REVIEW OF SYSTEMS: CONSTITUTIONAL: Present: generalized weakness, malaise Absent: fever, chills, diaphoresis, loss of appetite HEENT: Absent: eye pain, visual changes CARDIOVASCULAR: Present: peripheral edema, chest pain Absent: syncope, palpitations, irregular heart rate, lightheadedness, RESPIRATORY: Absent: cough, shortness of breath, dyspnea with exertion, orthopnea, wheezing, stridor, hemoptysis GASTROINTESTINAL: Present: abdominal distension, abdominal pain, nausea Absent: vomiting, diarrhea, constipation, GENITOURINARY: Absent: dysuria, frequency, urgency, hesitancy, hematuria, flank pain, genital pain NEUROLOGIC: Present: Headache, paresthesias Absent: focal weakness, dizziness, mental status changes, bladder or bowel incontinence PHYSICAL EXAMINATION Vital Signs - 24 hr 12/31/17 12/31/17 01:04 04:29 Temperature 97.3 F L Pulse Rate 84 Respiratory 26 H Rate Blood Pressure 221/153 Blood Pressure 203/150 [Left Arm] O2 Sat by Pulse 100 Oximetry (%) GENERAL: Awake, alert, and fully oriented, in mild distress. EYES: Pupils constricted-unable to assess retina, round and reactive to light, sclera anicteric, conjunctiva clear EARS, NOSE, THROAT: Ears normal, nares patent, Moist mucous membranes. NECK: Normal range of motion, no JVD? pulsatile vessel on right, no carotid bruit LUNGS: decreased breath sounds, breath sounds equal, clear to auscultation bilaterally. No wheezes, and no crackles. No accessory muscle use. HEART: Regular rate and rhythm, normal S1 and S2 without murmur ABDOMEN: Soft, mild tenderness, swollen, normoactive bowel sounds, no guarding, no rebound, dull to percussion, no masses. MUSCULOSKELETAL: No CVA tenderness. UPPER EXTREMITIES: warm, well-perfused. No cyanosis. No clubbing. No peripheral edema. LOWER EXTREMITIES: warm, well-perfused. No calf tenderness. 1+ peripheral edema. PSYCHIATRIC: Cooperative. Intermittent eye contact. Inappropriate mood and affect. SKIN: Anasarca Laboratory Results - last 24 hr 12/31/17 12/31/17 12/31/17 01:30 01:30 01:49 WBC 4.9 RBC 2.43 L Hgb 7.5 L Hct 22.4 L MCV 92.5 MCH 30.8 MCHC 33.3 RDW 15.8 H Plt Count 215 MPV 8.0 Absolute Neuts (auto) 4.0 Neutrophils % 82.4 Lymphocytes % 11.0 Monocytes % 3.3 L Eosinophils % 2.6 D Basophils % 0.7 Nucleated RBC % 0 Sodium Cancelled Potassium Cancelled Chloride Cancelled Carbon Dioxide Cancelled Anion Gap Cancelled BUN Cancelled Creatinine Cancelled Creat Clearance w eGFR Cancelled Random Glucose Cancelled Calcium Cancelled Total Bilirubin Cancelled AST Cancelled ALT Cancelled Alkaline Phosphatase Cancelled Creatine Kinase Cancelled Creatine Kinase Index CK-MB (CK-2) Troponin I Cancelled Total Protein Cancelled Albumin Cancelled Serum , Qual Cancelled Urine Color Urine Appearance Urine pH Ur Specific [place] Urine Protein Urine Glucose (UA) Urine Ketones Urine Blood Urine Nitrite Urine Bilirubin Urine Urobilinogen Ur Leukocyte Esterase Urine WBC (Auto) Urine RBC (Auto) Ur Epithelial Cells Urine HCG, Qual 12/31/17 12/31/17 12/31/17 02:04 02:07 02:40 WBC RBC Hgb Hct MCV MCH MCHC RDW Plt Count MPV Absolute Neuts (auto) Neutrophils % Lymphocytes % Monocytes % Eosinophils % Basophils % Nucleated RBC % Sodium 140 Potassium 3.8 Chloride 106 Carbon Dioxide 26 Anion Gap 8 BUN 64 H Creatinine 4.9 H Creat Clearance w eGFR 9.86 Random Glucose 96 Calcium 8.4 L Total Bilirubin 0.6 AST 33 ALT 74 H Alkaline Phosphatase 87 Creatine Kinase 161 Creatine Kinase Index 1.3 CK-MB (CK-2) 2.10 Troponin I 0.28 H* Total Protein 5.5 L Albumin 2.6 L Serum , Qual Urine Color Ltyellow Urine Appearance Clear Urine pH 6.0 Ur Specific [place] 1.008 Urine Protein 2+ H Urine Glucose (UA) Negative Urine Ketones Negative Urine Blood 1+ H Urine Nitrite Negative Urine Bilirubin Negative Urine Urobilinogen Negative Ur Leukocyte Esterase 1+ H D Urine WBC (Auto) 29 Urine RBC (Auto) 1 Ur Epithelial Cells Rare Urine HCG, Qual Negative Active Medications Current Medications Chlorhexidine Gluconate (Hibiclens For Decolonization -) 1 applic TP HS BRET Heparin Sodium (Porcine) (Heparin -) 5,000 unit SQ BID BRET Labetalol HCl 1,000 mg/ (Dextrose) 1,000 mls @ 240 mls/hr IV TITR BRET Last Admin: 12/31/17 03:48 Dose: 4 mg/min, 240 mls/hr Mupirocin (Bactroban Ointment (For Decolonization) -) 1 applic NS BID BRET Stop: 01/05/18 09:59 ASSESSMENT/PLAN: Patient is a 37 y/o female with a past medical history of Conn's Syndrome, CHF, CKD, and uncontrolled HTN who presents for Hypertensive Emergency 2/2 to uncontrolled Conn's Syndrome due to vomiting and unable to take medications for ~3 days. #Neuro -Headache 2/2 to hypertensive emergency - patient given morphine 8mg in ED for pain - A & O x 3 #Cardio -Hypertensive Emergency 2/2 to Conn's Syndrome - home BP's usually ~155/100 - c/w Labetalol drip 6mg/min, can titrate up to a max of 10mg/min for goal BP of 160s/100s - f/u Cardiology consult ( Dr. Santos) -Anemia - started Procrit - started IV iron - history, normocytic likely 2/2 to CKD - Iron studies: normal -Ascending Aortic Aneyrusm 2/2 to HTN - 4.[address] scan from 04/02 - continue to monitor Pulm -SOB: resolved - on presentation, maintain O2 sat > 92% #GI -Nausea/vomiting 2/2 to Conn's Syndrome - c/w Zofran as needed - EKG in ED: QTc 491 - monitor QTc w/ administration of QT prolonging agents -Hepatomegaly -CT A/P showed 5 stable hepatic cysts -Dr. Fowler's consult appreciated from last very recent admission -will monitor for increased ascites or abdominal swelling. #Renal -CKD stage 5 - BUN/Cr appears to be at baseline- Cr 5.0 - f/u with Dr. Sunshine, discussed dialysis vs transplant and management during last admission - GFR 12 - protein/Cr ratio 1.30 - holding home medications for now #Endocrine - Conn's Syndrome - diagnosed in 2005, unable to have "adrenal cysts" removed due to insufficient imaging - f/u with Hypertensive specialtist - Hold spironolactone until AM #DVT ppx - Heparin TID - SCDs #F/E/N - Na controlled diet - repleted electrolytes as needed - keep K+ above 4.0 and Mag above 2.0 an Phos above 3.0 Dispo: We will continue to follow the patient. Thank you for this consultative opportunity. Visit type - Emergency Visit Emergency Visit: Yes ED Registration Date: 12/31/17 Care time: The patient presented to the Emergency Department on the above date and was hospitalized for further evaluation of their emergent condition. - New Patient This patient is new to me today: Yes Date on this admission: 12/31/17 - Critical Care Critical Care patient: No
--- NOTE | 2017-12-31 05:01 | HP ---
CHIEF COMPLAINT: chest pain PCP: HISTORY OF PRESENT ILLNESS: Patient is a 37 year old female with past medical history of Conn syndrome, uncontrolled HTN, CKD, and CHF presented with sudden onset, severe, 10/10, nonradiating, left-sided chest pain that started yesterday noon. Patient describes the pain "like someone is ripping her heart out of her chest". This would last about 2-3 minutes, and the pain would subside to a dull ache. The pain persisted all throughout the day and during the night, the patient experienced shortness of breath which prompted her to visit the ED. Of note, patient was recently discharged 2 days ago for hypertensive emergency. Otherwise , patient denies fever, chills, urinary symptoms, syncope, dizziness, acute vision changes, cough, hematuria, melena, hematochezia. ER course was notable for: (1)BP 221/153. Labetalol ggt was started. Repeat BP 205/145 (2)Hgb 7.5, Hct 22.4 (3)BUN 64, Cr 4.9, Trop 0.28 (4)Morphine 4mg x2 Recent Travel:denies any recent travel PAST MEDICAL HISTORY: Conn syndrome Hypertension (uncontrolled) CKD CHF (mixed) PAST SURGICAL HISTORY: 3 C-sections Hysterectomy Social History: Smoking:previously smokes 1PPD for >20 years, quit last Jan 2017 Alcohol:denies EtOH use Drugs: denies any illicit drug use Lives with three children. 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 Served in the [employer] from [id number] Family History: Mother - HTN Father - HTN, Sickle cell disease Allergies No Known Allergies Allergy (Verified 12/31/17 01:03) HOME MEDICATIONS: Home Medications Medication Instructions Recorded Atorvastatin Ca [Lipitor] 40 mg PO HS 30 Days #30 tablet 12/29/17 Clonidine Patch [Catapres Tts 0.3 mg TD WEEKLY 14 Days #2 patch 12/29/17 Patch -] Hydralazine HCl 50 mg PO BID 30 Days #60 tablet 12/29/17 Labetalol HCl [Normodyne -] 300 mg PO BID 30 Days #60 tablet 12/29/17 Nifedipine [Procardia Xl] 60 mg PO BID 30 Days #60 tab 12/29/17 Spironolactone [Aldactone -] 50 mg PO BID 30 Days #60 tab 12/29/17 REVIEW OF SYSTEMS CONSTITUTIONAL: loss of appetite, generalized weakness Absent: fever, chills, diaphoresis, malaise, weight change HEENT: Absent: rhinorrhea, nasal congestion, throat pain, throat swelling, difficulty swallowing, mouth swelling, ear pain, eye pain, visual changes CARDIOVASCULAR: chest pain Absent: syncope, palpitations, irregular heart rate, lightheadedness, peripheral edema RESPIRATORY: Absent: cough, shortness of breath, dyspnea with exertion, orthopnea, wheezing, stridor, hemoptysis GASTROINTESTINAL: Absent: abdominal pain, abdominal distension, nausea, vomiting, diarrhea, constipation, melena, hematochezia GENITOURINARY: Absent: dysuria, frequency, urgency, hesitancy, hematuria, flank pain, genital pain MUSCULOSKELETAL: Absent: myalgia, arthralgia, joint swelling, back pain, neck pain SKIN: Absent: rash, itching, pallor HEMATOLOGIC/IMMUNOLOGIC: Absent: easy bleeding, easy bruising, lymphadenopathy, frequent infections ENDOCRINE: Absent: unexplained weight gain, unexplained weight loss, heat intolerance, cold intolerance NEUROLOGIC: Absent: headache, focal weakness or paresthesias, dizziness, unsteady gait, seizure, mental status changes, bladder or bowel incontinence PSYCHIATRIC: Absent: anxiety, depression, suicidal or homicidal ideation, hallucinations. PHYSICAL EXAMINATION Vital Signs - 24 hr 12/31/17 12/31/17 12/31/17 01:04 04:29 04:30 Temperature 97.3 F L Pulse Rate 84 78 Respiratory 26 H Rate Blood Pressure 221/153 203/150 Blood Pressure 203/150 [Left Arm] O2 Sat by Pulse 100 Oximetry (%) GENERAL: Awake, alert, and fully oriented, in no acute distress. HEAD: Normal with no signs of trauma. EYES:PERRLA, EOMI, sclera anicteric, pale palpebral conjunctivae EARS, NOSE, THROAT: Ears normal, nares patent, oropharynx clear without exudates. Moist mucous membranes. NECK: Normal range of motion, supple without lymphadenopathy, JVD, or masses. LUNGS: Breath sounds equal, clear to auscultation bilaterally. No accessory muscle use. HEART: Regular rate and rhythm, normal S1 and S2 without murmur, rub or gallop. ABDOMEN: Soft, +diffuse tenderness on all quadrants on deep palpation, not distended, normoactive bowel sounds. MUSCULOSKELETAL: Normal range of motion at all joints. No bony deformities or tenderness. No CVA tenderness. UPPER EXTREMITIES: 2+ pulses, warm, well-perfused. No cyanosis. No clubbing. No peripheral edema. LOWER EXTREMITIES: 2+ pulses, warm, well-perfused. No calf tenderness. B/l pitting edema. NEUROLOGICAL: Cranial nerves II-XII intact. Normal speech. Normal gait. PSYCHIATRIC: Cooperative. Good eye contact. Appropriate mood and affect. SKIN: Warm, dry, normal turgor, no rashes or lesions noted, normal capillary refill. Laboratory Results - last 24 hr 12/31/17 12/31/17 12/31/17 01:30 01:30 01:49 WBC 4.9 RBC 2.43 L Hgb 7.5 L Hct 22.4 L MCV 92.5 MCH 30.8 MCHC 33.3 RDW 15.8 H Plt Count 215 MPV 8.0 Absolute Neuts (auto) 4.0 Neutrophils % 82.4 Lymphocytes % 11.0 Monocytes % 3.3 L Eosinophils % 2.6 D Basophils % 0.7 Nucleated RBC % 0 Sodium Cancelled Potassium Cancelled Chloride Cancelled Carbon Dioxide Cancelled Anion Gap Cancelled BUN Cancelled Creatinine Cancelled Creat Clearance w eGFR Cancelled Random Glucose Cancelled Calcium Cancelled Total Bilirubin Cancelled AST Cancelled ALT Cancelled Alkaline Phosphatase Cancelled Creatine Kinase Cancelled Creatine Kinase Index CK-MB (CK-2) Troponin I Cancelled Total Protein Cancelled Albumin Cancelled Serum , Qual Cancelled Urine Color Urine Appearance Urine pH Ur Specific [place] Urine Protein Urine Glucose (UA) Urine Ketones Urine Blood Urine Nitrite Urine Bilirubin Urine Urobilinogen Ur Leukocyte Esterase Urine WBC (Auto) Urine RBC (Auto) Ur Epithelial Cells Urine HCG, Qual 12/31/17 12/31/17 12/31/17 02:04 02:07 02:40 WBC RBC Hgb Hct MCV MCH MCHC RDW Plt Count MPV Absolute Neuts (auto) Neutrophils % Lymphocytes % Monocytes % Eosinophils % Basophils % Nucleated RBC % Sodium 140 Potassium 3.8 Chloride 106 Carbon Dioxide 26 Anion Gap 8 BUN 64 H Creatinine 4.9 H Creat Clearance w eGFR 9.86 Random Glucose 96 Calcium 8.4 L Total Bilirubin 0.6 AST 33 ALT 74 H Alkaline Phosphatase 87 Creatine Kinase 161 Creatine Kinase Index 1.3 CK-MB (CK-2) 2.10 Troponin I 0.28 H* Total Protein 5.5 L Albumin 2.6 L Serum , Qual Urine Color Ltyellow Urine Appearance Clear Urine pH 6.0 Ur Specific [place] 1.008 Urine Protein 2+ H Urine Glucose (UA) Negative Urine Ketones Negative Urine Blood 1+ H Urine Nitrite Negative Urine Bilirubin Negative Urine Urobilinogen Negative Ur Leukocyte Esterase 1+ H D Urine WBC (Auto) 29 Urine RBC (Auto) 1 Ur Epithelial Cells Rare Urine HCG, Qual Negative ASSESSMENT/PLAN: Patient is a 37 year old female who presents today for headache, abdominal pain , body aches and was found to be in Hypertensive emergency. Patient started on Labetolol drip and admitted to ICU for further monitoring and management. #Hypertensive Emergency -PMHx of Conn syndrome since 2005. Patient has been seen by blood tester and hypertensive specialist at the [facility] and [facility] (2011) but has never followed-up. -Trops (0.28) and Creatinine (4.9) elevated but around baseline. -Initial BP upon arrival at the ED: 221/153 -Labetalol drip started in ED at 4mg/min. Repeat BP was 205/145 taken manually, Labetalol titrated to 6mg/min. -Continue to monitor BP. -Will slowly introduce home PO medications once able to tolerate. -Nephrology (Dr. Sunshine) consulted. -Cardiology (Dr. Santos) consulted. #Chest pain -EKG - NSR as per my read -Patient's troponins are and have been elevated at a similar level on previous admissions. -Likely demand ischemia in setting of elevated BP. -Will repeat troponin in the AM. #Hypokalemia -K 3.8 -Potassium 20meq PO. #Abdominal tenderness -CT abd/pelvis (12/27/17) - hepatomegaly with hepatic cysts, subcutaneous edema , free pelvic fluid -Morphine given in ED and is currently controlled -Previous admissions patient had constipation and placed on bowel regimen. At this time, patient denies any constipation and has normal bowel movement. #Normocytic Anemia -likely related to chronic kidney disease -Patient's hemoglobin is 7.5, has been worked up in the past and found to have normal Fe/TIBC and B12/Folate -Hold off on transfusion at the moment. -Consider giving IV iron and Procrit. -Continue to monitor CBC. #Chronic Kidney Disease -Likely 2/2 hypertensive nephropathy -patient's kidney function is similar to what it was on previous admissions -Dr. Sunshine consulted. Follows patient in the hospital similar to previous admission #Hypoalbuminemia -Likely secondary to proteinuria from CKD and comorbidities. -Will need adequate diet #F/E/N -no standing fluids -Hypokalemia. Replete with Kcl 20meq PO. -Routine bmp monitoring. -sodium controlled diet #Prophylaxis -Moderate Risk. Heparin 5000 units sq BID #Disposition -Full code -Admit to ICU. Visit type - Emergency Visit Emergency Visit: Yes ED Registration Date: 12/31/17 Care time: The patient presented to the Emergency Department on the above date and was hospitalized for further evaluation of their emergent condition. - New Patient This patient is new to me today: Yes Date on this admission: 12/31/17 - Critical Care Critical Care patient: No Hospitalist Screening - Colonoscopy Questionnaire Colonoscopy Questionnaire: Colonoscopy Questionnaire - Patient: 50 - 75 years old and never had a screening colonoscopy: Unknown History of colon or rectal polyps, or CA: Unknown History of IBD, Crohn's disease or UC: Unknown History of abdominal radiation therapy as a child: Unknown - Relative: 1 with colon or rectal CA, or polyps at age 60 or younger: Unknown Colon or rectal CA diagnosed at age 45 or younger: Unknown Multiple relatives with colon or rectal CA: Unknown - Outcome: Screening Result: Negative Screen
[2017-12-31] MEDS ORDERED: IRON SUCROSE INJECTION 100 MG in SODIUM CHLORIDE 95 ML IVPB ONE (05:23)
[2017-12-31] MEDS ORDERED: EPOETIN ALFA 2,000 UNIT/1 ML VIAL SQ ONE (05:26)
[2017-12-31] MEDS ORDERED: morphine SULFATE 4 MG/ML VIAL IVPUSH PRN (05:27)
[2017-12-31 05:47] LABS: BASO % 0.2 % (0-2.0); EOS % 2.3 % (0-4.5); HEMATOCRIT 22.3 % (32.4-45.2); HEMOGLOBIN 7.4 GM/dL (10.7-15.3); LYMPH % 15.1 % (8-40); MCH 30.7 pg (25.7-33.7); MEAN CELL VOLUME 92.9 fl (80-96); MEAN PLT VOLUME 7.8 fl (7.5-11.1); MONO % 4.2 % (3.8-10.2); NEUT % 78.2 % (42.8-82.8); PLATELET COUNT 181 K/MM3 (134-434); RBC 2.41 M/mm3 (3.60-5.2); RDW 15.6 % (11.6-15.6); WHITE BLOOD COUNT 4.3 K/mm3 (4.0-10.0)
[2017-12-31 06:03] LABS: INR 1.18 (0.83-1.09); PROTHROMBIN TIME (PATIENT) 13.3 SEC (9.7-13.0)
[2017-12-31 06:18] LABS: ALBUMIN 2.6 g/dl (3.4-5.0); ANION GAP 9 MMOL/L (8-16); BLOOD UREA NITROGEN 62 mg/dL (7-18); CALCIUM 8.6 mg/dL (8.5-10.1); CHLORIDE 102 mmol/L (98-107); CO2 27 mmol/L (21-32); CREATININE 4.9 mg/dL (0.55-1.3); GLUCOSE,RANDOM 135 mg/dL (74-106); MAGNESIUM 2.1 mg/dL (1.8-2.4); POTASSIUM 3.8 mmol/L (3.5-5.1); SGOT/AST 33 U/L (15-37); SGPT/ALT 73 U/L (13-61); SODIUM 138 mmol/L (136-145); TOT PROT 5.5 g/dl (6.4-8.2)
[2017-12-31 06:27] LABS: ALK PHOS 87 U/L (45-117); BILIRUBIN,TOTAL 0.6 mg/dL (0.2-1.0)
[2017-12-31] MEDS ORDERED: MORPHINE SULFATE 2 MG/ML VIAL IVPUSH PRN (06:57)
[2017-12-31] MEDS ORDERED: POTASSIUM CHLORIDE TABS 20 MEQ TABLET.ER (FP) PO ONE (07:29)
[2017-12-31] MEDS ORDERED: POLYETHYLENE GLYCOL 3350 119 GM BTL PO ONE (08:30)
[2017-12-31] MEDS: SPIRONOLACTONE 25 MG TABLET (FP) PO SCH ×2 (09:25→22:51)
[2017-12-31] MEDS: MUPIROCIN 2% TOPICAL OINTMENT FOR DECOLONIZATION NS SCH ×2 (09:26→23:00)
[2017-12-31] MEDS: HEPARIN NA (PORCINE) 5,000 UNITS/ML 1ML VIAL SQ SCH ×2 (09:27→23:07)
--- NOTE | 2017-12-31 09:52 | PN ---
Teaching Attending Note Name of Resident: Damaris Piña ATTENDING PHYSICIAN STATEMENT I saw and evaluated the patient. I reviewed the resident's note and discussed the case with the resident. I agree with the resident's findings and plan as documented. SUBJECTIVE: Patient seen and examined in the ICU. Readmitted due to recurrent Hypertensive Emergency. Started to experience non-exertional CP yesterday. Unclear if this is because of non-compliance (suspected). Currently on Labetalol drip @ 3 mg. No CP or SOB. Sleepy but arousable. Intake & Output 12/28/17 12/29/17 12/30/17 12/31/17 23:59 23:59 23:59 23:59 Weight 154 lb Last Vital Signs Temp Pulse Resp BP Pulse Ox 97.3 F L 58 L 16 149/121 97 12/31/17 01:04 12/31/17 09:33 12/31/17 09:33 12/31/17 09:33 12/31/17 07:00 Active Medications Chlorhexidine Gluconate (Hibiclens For Decolonization -) 1 applic TP HS [facility] Heparin Sodium (Porcine) (Heparin -) 5,000 unit SQ BID [facility] Last Admin: 12/31/17 09:27 Dose: Not Given Labetalol HCl 1,000 mg/ (Dextrose) 1,000 mls @ 240 mls/hr IV TITR [facility] Last Titration: 12/31/17 04:30 Dose: 6 mg/min, 360 mls/hr Morphine Sulfate (Morphine Sulfate) 2 mg IVPUSH Q4H PRN PRN Reason: PAIN LEVEL 6-10 Mupirocin (Bactroban Ointment (For Decolonization) -) 1 applic NS BID [facility] Stop: 01/05/18 09:59 Last Admin: 12/31/17 09:26 Dose: 1 applic Spironolactone (Aldactone -) 50 mg PO BID [facility] Last Admin: 12/31/17 09:25 Dose: 50 mg GENERAL: Sleepy but arousable EYES: (-) Icterus EARS, NOSE, THROAT: Ears normal, nares patent, Moist mucous membranes. NECK: Normal range of motion, no JVD, no carotid bruit LUNGS: clear to auscultation bilaterally. No wheezes, and no crackles. No accessory muscle use. HEART: Regular rate and rhythm, normal S1 and S2 without murmur ABDOMEN: Soft, mild tenderness, swollen, normoactive bowel sounds, no guarding, no rebound, dull to percussion, no masses. MUSCULOSKELETAL: No CVA tenderness. UPPER EXTREMITIES: warm, well-perfused. No cyanosis. No clubbing. No peripheral edema. LOWER EXTREMITIES: warm, well-perfused. No calf tenderness. 1+ peripheral edema. PSYCHIATRIC: Cooperative. Intermittent eye contact. Inappropriate mood and affect. SKIN: (-) lesions Laboratory Results - last 24 hr 12/31/17 12/31/17 12/31/17 01:30 01:30 01:49 WBC 4.9 RBC 2.43 L Hgb 7.5 L Hct 22.4 L MCV 92.5 MCH 30.8 MCHC 33.3 RDW 15.8 H Plt Count 215 MPV 8.0 Absolute Neuts (auto) 4.0 Neutrophils % 82.4 Lymphocytes % 11.0 Monocytes % 3.3 L Eosinophils % 2.6 D Basophils % 0.7 Nucleated RBC % 0 PT with INR INR Sodium Cancelled Potassium Cancelled Chloride Cancelled Carbon Dioxide Cancelled Anion Gap Cancelled BUN Cancelled Creatinine Cancelled Creat Clearance w eGFR Cancelled Random Glucose Cancelled Calcium Cancelled Phosphorus Magnesium Total Bilirubin Cancelled AST Cancelled ALT Cancelled Alkaline Phosphatase Cancelled Creatine Kinase Cancelled Creatine Kinase Index CK-MB (CK-2) Troponin I Cancelled Total Protein Cancelled Albumin Cancelled Serum , Qual Cancelled Urine Color Urine Appearance Urine pH Ur Specific [place] Urine Protein Urine Glucose (UA) Urine Ketones Urine Blood Urine Nitrite Urine Bilirubin Urine Urobilinogen Ur Leukocyte Esterase Urine WBC (Auto) Urine RBC (Auto) Ur Epithelial Cells Urine HCG, Qual 12/31/17 12/31/17 12/31/17 02:04 02:07 02:40 WBC RBC Hgb Hct MCV MCH MCHC RDW Plt Count MPV Absolute Neuts (auto) Neutrophils % Lymphocytes % Monocytes % Eosinophils % Basophils % Nucleated RBC % PT with INR INR Sodium 140 Potassium 3.8 Chloride 106 Carbon Dioxide 26 Anion Gap 8 BUN 64 H Creatinine 4.9 H Creat Clearance w eGFR 9.86 Random Glucose 96 Calcium 8.4 L Phosphorus Magnesium Total Bilirubin 0.6 AST 33 ALT 74 H Alkaline Phosphatase 87 Creatine Kinase 161 Creatine Kinase Index 1.3 CK-MB (CK-2) 2.10 Troponin I 0.28 H* Total Protein 5.5 L Albumin 2.6 L Serum , Qual Urine Color Ltyellow Urine Appearance Clear Urine pH 6.0 Ur Specific [place] 1.008 Urine Protein 2+ H Urine Glucose (UA) Negative Urine Ketones Negative Urine Blood 1+ H Urine Nitrite Negative Urine Bilirubin Negative Urine Urobilinogen Negative Ur Leukocyte Esterase 1+ H D Urine WBC (Auto) 29 Urine RBC (Auto) 1 Ur Epithelial Cells Rare Urine HCG, Qual Negative 12/31/17 12/31/17 12/31/17 05:15 05:15 05:15 WBC 4.3 RBC 2.41 L Hgb 7.4 L Hct 22.3 L MCV 92.9 MCH 30.7 MCHC 33.0 RDW 15.6 Plt Count 181 MPV 7.8 Absolute Neuts (auto) 3.3 Neutrophils % 78.2 Lymphocytes % 15.1 D Monocytes % 4.2 Eosinophils % 2.3 Basophils % 0.2 Nucleated RBC % 0 PT with INR 13.30 H INR 1.18 H Sodium 138 Potassium 3.8 Chloride 102 Carbon Dioxide 27 Anion Gap 9 BUN 62 H Creatinine 4.9 H Creat Clearance w eGFR 9.86 Random Glucose 135 H Calcium 8.6 Phosphorus Magnesium 2.1 Total Bilirubin 0.6 AST 33 ALT 73 H Alkaline Phosphatase 87 Creatine Kinase 157 Creatine Kinase Index CK-MB (CK-2) Troponin I 0.27 H* Total Protein 5.5 L Albumin 2.6 L Serum , Qual Urine Color Urine Appearance Urine pH Ur Specific [place] Urine Protein Urine Glucose (UA) Urine Ketones Urine Blood Urine Nitrite Urine Bilirubin Urine Urobilinogen Ur Leukocyte Esterase Urine WBC (Auto) Urine RBC (Auto) Ur Epithelial Cells Urine HCG, Qual 12/31/17 05:15 WBC RBC Hgb Hct MCV MCH MCHC RDW Plt Count MPV Absolute Neuts (auto) Neutrophils % Lymphocytes % Monocytes % Eosinophils % Basophils % Nucleated RBC % PT with INR INR Sodium Potassium Chloride Carbon Dioxide Anion Gap BUN Creatinine Creat Clearance w eGFR Random Glucose Calcium Phosphorus 4.2 Magnesium Total Bilirubin AST ALT Alkaline Phosphatase Creatine Kinase Creatine Kinase Index CK-MB (CK-2) Troponin I Total Protein Albumin Serum , Qual Urine Color Urine Appearance Urine pH Ur Specific [place] Urine Protein Urine Glucose (UA) Urine Ketones Urine Blood Urine Nitrite Urine Bilirubin Urine Urobilinogen Ur Leukocyte Esterase Urine WBC (Auto) Urine RBC (Auto) Ur Epithelial Cells Urine HCG, Qual ASSESSMENT/PLAN: Hypertensive Emergency Conn's Syndrome CHF CKD Non-compliance (+) Tropinin Ascending Aortic Aneurysm Anemia Restart oral medication Cardiology consult has been called due to (+) Troponin and EKG changes Caution with meds that prolong QT O2 as needed Follow K+ level ICU monitoring Dr Iraheta Critical care time spent in reviewing chart, evaluating patient and formulating plan - 36 minutes.
--- NOTE | 2017-12-31 09:55 | PN ---
Physical Exam: SUBJECTIVE: Patient seen and examined this AM. Pt states she still has mild sternal chest pain, which has improved since admission. The chest pain does not radiate to her back or arms. She has had 2 episodes of NBNB vomiting and nausea. She has not had a BM since , before her prior discharge. She also complains of mild abdominal distension, but no abdominal pain. OBJECTIVE: Vital Signs Period Temp Pulse Resp BP Sys/Li Pulse Ox Last 24 Hr 97.3 F 58-84 14-26 147-221/120-153 97-100 GENERAL: The patient is lethargic, but easily awoken. She is alert and oriented and can answer questions appropriately when prompted. HEAD: Normal with no signs of trauma. EYES: PERRL, extraocular movements intact, sclera anicteric, conjunctiva clear. No ptosis. ENT: External ears normal, nares patent, oropharynx clear without exudates, moist mucous membranes. NECK: Trachea midline, full range of motion, supple. LUNGS: Breath sounds equal, clear to auscultation bilaterally, no wheezes, no crackles, no accessory muscle use. HEART: Regular rate and rhythm, S1, S2 without murmur, rub or gallop. ABDOMEN: Soft, nontender, normoactive bowel sounds, no guarding, no rebound, no hepatosplenomegaly, no masses. Mild distension in RLQ without tenderness. EXTREMITIES: 2+ pulses, warm, well-perfused, no pitting edema. NEUROLOGICAL: Cranial nerves II through XII grossly intact. Normal speech, gait normal. PSYCH: Sleepy/lethargic affect. SKIN: Warm, dry, normal turgor, no rashes or lesions noted. Laboratory Results - last 24 hr 12/31/17 12/31/17 12/31/17 01:30 01:30 01:49 WBC 4.9 RBC 2.43 L Hgb 7.5 L Hct 22.4 L MCV 92.5 MCH 30.8 MCHC 33.3 RDW 15.8 H Plt Count 215 MPV 8.0 Absolute Neuts (auto) 4.0 Neutrophils % 82.4 Lymphocytes % 11.0 Monocytes % 3.3 L Eosinophils % 2.6 D Basophils % 0.7 Nucleated RBC % 0 PT with INR INR Sodium Cancelled Potassium Cancelled Chloride Cancelled Carbon Dioxide Cancelled Anion Gap Cancelled BUN Cancelled Creatinine Cancelled Creat Clearance w eGFR Cancelled Random Glucose Cancelled Calcium Cancelled Phosphorus Magnesium Total Bilirubin Cancelled AST Cancelled ALT Cancelled Alkaline Phosphatase Cancelled Creatine Kinase Cancelled Creatine Kinase Index CK-MB (CK-2) Troponin I Cancelled Total Protein Cancelled Albumin Cancelled Serum , Qual Cancelled Urine Color Urine Appearance Urine pH Ur Specific [place] Urine Protein Urine Glucose (UA) Urine Ketones Urine Blood Urine Nitrite Urine Bilirubin Urine Urobilinogen Ur Leukocyte Esterase Urine WBC (Auto) Urine RBC (Auto) Ur Epithelial Cells Urine HCG, Qual 12/31/17 12/31/17 12/31/17 02:04 02:07 02:40 WBC RBC Hgb Hct MCV MCH MCHC RDW Plt Count MPV Absolute Neuts (auto) Neutrophils % Lymphocytes % Monocytes % Eosinophils % Basophils % Nucleated RBC % PT with INR INR Sodium 140 Potassium 3.8 Chloride 106 Carbon Dioxide 26 Anion Gap 8 BUN 64 H Creatinine 4.9 H Creat Clearance w eGFR 9.86 Random Glucose 96 Calcium 8.4 L Phosphorus Magnesium Total Bilirubin 0.6 AST 33 ALT 74 H Alkaline Phosphatase 87 Creatine Kinase 161 Creatine Kinase Index 1.3 CK-MB (CK-2) 2.10 Troponin I 0.28 H* Total Protein 5.5 L Albumin 2.6 L Serum , Qual Urine Color Ltyellow Urine Appearance Clear Urine pH 6.0 Ur Specific [place] 1.008 Urine Protein 2+ H Urine Glucose (UA) Negative Urine Ketones Negative Urine Blood 1+ H Urine Nitrite Negative Urine Bilirubin Negative Urine Urobilinogen Negative Ur Leukocyte Esterase 1+ H D Urine WBC (Auto) 29 Urine RBC (Auto) 1 Ur Epithelial Cells Rare Urine HCG, Qual Negative 12/31/17 12/31/17 12/31/17 05:15 05:15 05:15 WBC 4.3 RBC 2.41 L Hgb 7.4 L Hct 22.3 L MCV 92.9 MCH 30.7 MCHC 33.0 RDW 15.6 Plt Count 181 MPV 7.8 Absolute Neuts (auto) 3.3 Neutrophils % 78.2 Lymphocytes % 15.1 D Monocytes % 4.2 Eosinophils % 2.3 Basophils % 0.2 Nucleated RBC % 0 PT with INR 13.30 H INR 1.18 H Sodium 138 Potassium 3.8 Chloride 102 Carbon Dioxide 27 Anion Gap 9 BUN 62 H Creatinine 4.9 H Creat Clearance w eGFR 9.86 Random Glucose 135 H Calcium 8.6 Phosphorus Magnesium 2.1 Total Bilirubin 0.6 AST 33 ALT 73 H Alkaline Phosphatase 87 Creatine Kinase 157 Creatine Kinase Index CK-MB (CK-2) Troponin I 0.27 H* Total Protein 5.5 L Albumin 2.6 L Serum , Qual Urine Color Urine Appearance Urine pH Ur Specific [place] Urine Protein Urine Glucose (UA) Urine Ketones Urine Blood Urine Nitrite Urine Bilirubin Urine Urobilinogen Ur Leukocyte Esterase Urine WBC (Auto) Urine RBC (Auto) Ur Epithelial Cells Urine HCG, Qual 12/31/17 05:15 WBC RBC Hgb Hct MCV MCH MCHC RDW Plt Count MPV Absolute Neuts (auto) Neutrophils % Lymphocytes % Monocytes % Eosinophils % Basophils % Nucleated RBC % PT with INR INR Sodium Potassium Chloride Carbon Dioxide Anion Gap BUN Creatinine Creat Clearance w eGFR Random Glucose Calcium Phosphorus 4.2 Magnesium Total Bilirubin AST ALT Alkaline Phosphatase Creatine Kinase Creatine Kinase Index CK-MB (CK-2) Troponin I Total Protein Albumin Serum , Qual Urine Color Urine Appearance Urine pH Ur Specific [place] Urine Protein Urine Glucose (UA) Urine Ketones Urine Blood Urine Nitrite Urine Bilirubin Urine Urobilinogen Ur Leukocyte Esterase Urine WBC (Auto) Urine RBC (Auto) Ur Epithelial Cells Urine HCG, Qual Active Medications Generic Name Dose Route Start Last Admin Trade Name Freq PRN Reason Stop Dose Admin Chlorhexidine Gluconate 1 applic 12/31/17 22:00 Hibiclens For Decolonization - TP HS BRET Heparin Sodium (Porcine) 5,000 unit 12/31/17 10:00 12/31/17 09:27 Heparin - SQ Not Given BID [facility] Labetalol HCl 1,000 mg/ 1,000 mls @ 240 mls/hr 12/31/17 03:00 12/31/17 04:30 Dextrose IV 6 mg/min TITR [facility]RET 360 mls/hr Titration 4 MG/MIN Morphine Sulfate 2 mg 12/31/17 06:57 Morphine Sulfate IVPUSH Q4H PRN PAIN LEVEL 6-10 Mupirocin 1 applic 12/31/17 10:00 12/31/17 09:26 Bactroban Ointment (For Decolonization) - NS 01/05/18 09:59 1 applic BID [facility] Administration Nifedipine 60 mg 12/31/17 10:00 Procardia Xl - PO BID [facility]RET Spironolactone 50 mg 12/31/17 10:00 12/31/17 09:25 Aldactone - PO 50 mg BID [facility] Administration ASSESSMENT/PLAN: Patient is a 37 y/o F with PMH of Conn's Syndrome, CHF, CKD, and uncontrolled HTN who presents for Hypertensive Emergency 2/2 to uncontrolled Conn's Syndrome. She was discharged 12/29 and returned to ED on 12/30 due to L-sided chest pain and nausea. 1. Neuro -Headache 2/2 to hypertensive emergency patient given morphine 8mg in ED for pain 2. Cardio -Hypertensive Emergency 2/2 to Conn's Syndrome Home BP's usually ~155/100 In ER, started Labetalol drip 6mg/min, can titrate up to a max of 10mg/min for goal BP of 160s/100s Seen by Dr. Madrigal. Will restart home PO meds today, started Procardia XL 60 BID, Cardura 8 mg PO BID, Labetalol 300 mg PO BID, Hydralazine 50 mg PO BID; Will reduce Labetalol drip. New ECG today showed no recent changes; will repeat ECG tomorrow AM Troponin .2 and is downtrending. No interventions required at this time ( likely demand ischemia) -Anemia (Normocytic likely 2/2 to CKD) Started Procrit and IV iron -Ascending Aortic Aneyrusm 2/2 to HTN - 4.[address] scan from 04/02, continue to monitor; no changes seen on chest x-ray 3. GI -Nausea/vomiting 2/2 to Conn's Syndrome NO additional zofran as pt has prolonged QT (ECG in ED: QTc 491, today 518) Offered pt IM Tigan, pt refused; n/v likely due to pt not eating anything PO and she continues to refuse food. Monitor QTc w/ administration of any QT prolonging agents -Hepatomegaly CT A/P showed 5 stable hepatic cysts; Will monitor for increased ascites or abdominal swelling. 4. Renal -CKD stage 5 BUN/Cr appears to be at baseline- Cr 4.[address] Sunshine, discussed dialysis vs transplant and management during last admission Started Spironolactone 50 mg BID 6. DVT ppx Heparin TID and SCDs -- pt refused 7. F/E/N Na controlled diet Replete electrolytes as needed: keep K+ above 4.0 and Mag above 2.0 an Phos above 3.0 20 mg PO KCl today, 40 mg PO KCl Qday; Pt has refused to take medication due to nausea. Visit type - Emergency Visit Emergency Visit: Yes ED Registration Date: 12/31/17 Care time: The patient presented to the Emergency Department on the above date and was hospitalized for further evaluation of their emergent condition. - New Patient This patient is new to me today: No - Critical Care Critical Care patient: Yes Total Critical Care Time (in minutes): 30 Critical Care Statement: The care of this patient involved high complexity decision making to prevent further life threatening deterioration of the patient 's condition and/or to evaluate & treat vital organ system(s) failure or risk of failure. - Discharge Referral Referred to [facility] Yes
--- NOTE | 2017-12-31 10:06 | CON.CARD ---
Consult Consult Specialty:: cardio - History of Present Illness Chief Complaint: cp History of Present Illness: 37 F with sec HTN from [facility] prior admits for HTN urgency with sx's of CP, here with same. BP 221/153 in ER, treated with labetalol gtt overnight in ICU with improvement. currently BP 150s/120s. states her CP has completely resolved at present. she states she had no back pain accompanying these sx's. denies any sob or syncope then or presently PMH: HTN, hyperaldo CKD, stage 5 hypertensive heart dz with CHF aorta aneurysm - Past Medical History Cardio/Vascular: Yes: CAD, HTN Renal/: Yes: Renal Inusuff, Other (Conn syndrome) Endocrine: Yes: Other (hyperaldosteronism) - Past Surgical History Past Surgical History: Yes: - Alcohol/Substance Use Hx Alcohol Use: No History of Substance Use: reports: None - Smoking History Smoking history: Never smoked Have you smoked in the past 12 months: No If you are a former smoker, when did you quit?: january - Social History ADL: Independent Occupation: [employer] History of Recent Travel: No Home Medications - Allergies Allergies/Adverse Reactions: Allergies Allergy/AdvReac Type Severity Reaction Status Date / Time No Known Allergies Allergy Verified 12/31/17 01:03 - Home Medications Home Medications: Ambulatory Orders Atorvastatin Ca [Lipitor] 40 mg PO HS 30 Days #30 tablet 12/29/17 Clonidine Patch [Catapres Tts Patch -] 0.3 mg TD WEEKLY 14 Days #2 patch Hydralazine HCl 50 mg PO BID 30 Days #60 tablet 12/29/17 Labetalol HCl [Normodyne -] 300 mg PO BID 30 Days #60 tablet 12/29/17 Nifedipine [Procardia Xl] 60 mg PO BID 30 Days #60 tab 12/29/17 Spironolactone [Aldactone -] 50 mg PO BID 30 Days #60 tab 12/29/17 Family Disease History - Family Disease History Family Disease History: Other: Grandparent (htn), Mother (htn) Review of Systems - Review of Systems Constitutional: denies: Chills, Fever Eyes: denies: Eye Pain HENT: denies: Nasal Congestion Neck: denies: Stiffness Cardiovascular: denies: Palpitations Respiratory: denies: Orthopnea, PND Gastrointestinal: denies: Diarrhea, Rectal Bleeding Genitourinary: denies: Burning, Hematuria Musculoskeletal: denies: Muscle Pain Integumentary: denies: Rash Neurological: denies: Numbness, Seizure, Syncope Endocrine: denies: Excessive Sweating Hematology/Lymphatic: denies: Excessive Bleeding Vital Signs: Vital Signs Temperature 97.3 F L 12/31/17 01:04 Pulse Rate 58 L 12/31/17 09:33 Respiratory Rate 16 12/31/17 09:33 Blood Pressure 149/121 12/31/17 09:33 O2 Sat by Pulse Oximetry (%) 97 12/31/17 07:00 Constitutional: Yes: Well Nourished, No Distress Eyes: No: Sclera Icterus HENT: No: Nasal Congestion Neck: No: Decreased ROM Respiratory: Yes: CTA Bilaterally. No: Accessory Muscle Use Gastrointestinal: Yes: Normal Bowel Sounds. No: Distention, Hepatomegaly, Palpable Mass, Tenderness Cardiovascular: Yes: Regular Rate and Rhythm JVD: No Carotid Bruit: No PMI: Non-Displaced Heart Sounds: Yes: S1, S2. No: Gallop Murmur: No: Systolic Murmur, Diastolic Murmur Musculoskeletal: Yes: Other (No kyphosis) Extremities: No: Cool, Cyanosis Edema: No Peripheral Pulses: 2+ Left Carotid, 2+ Right Carotid, 2+ Left Doralis Pedis, 2+ Right Dorsalis Pedis Integumentary: No: Jaundice Neurological: Yes: Alert, Oriented (x3), Other (sleepy, easily rousable). No: Seizure Psychiatric: No: Agitated - Other Data Labs, Other Data: CBC, BMP 12/31/17 05:15 12/31/17 05:15 INR, PTT INR 1.18 (0.83-1.09) H 12/31/17 05:15 Troponin, BNP 12/31/17 12/31/17 12/31/17 01:30 02:40 05:15 Troponin I Cancelled 0.28 H* 0.27 H* Troponin, BNP 12/31/17 12/31/17 12/31/17 01:30 02:40 05:15 Troponin I Cancelled 0.28 H* 0.27 H* Laboratory Tests 12/31/17 12/31/17 12/31/17 02:40 05:15 05:15 WBC 4.3 Hgb 7.4 L Plt Count 181 Sodium 138 Potassium 3.8 Carbon Dioxide 27 BUN 62 H Creatinine 4.9 H AST 33 ALT 73 H Troponin I 0.28 H* 0.27 H* Assessment/Plan ecg 12/31 #1: NSR, LVH with repola abn/diffuse ST-Ts--no signif change vs priors 01/02 and 11/01 ecg 12/31 #2: no change CXR: congestive changes, CM, unfolded aorta no change vs prior echo 06/2017: mild lve. 1+ conc lvh. mild dec lv sys fn. mild-mod lat wall HK. mod inferolateral wall HK. 1+ lae. 1+ ar, mod mr, nl aortic root size. small pericardial effusion (images reviewed by dr taylor: no regionality to LV hypokinesis--there is global mild-moderate LV hypokinesis, EF 40-45%. moderate conc LVH. moderate MR) echo 03/2017: mod LVH (concentric); nl LVSF. nl RV. nl LA. mild AI/MR/TR. normal aortic root. small effusion chest CT 03/2017: Ascending aorta 4.1 cm. PA dilation (3.6 cm). hypertensive urgency, known h/o secondary HTN/hyperaldosteronism, hypertensive heart dz/renal dz: - HTN urgency admit here previously triggered by non-adherence to po meds due to nausea and vomiting - multiple admits for HTN urgency in past few months (responsive to nicardipine drip each time), last was earlier this month and went home 2 days ago. - d/c meds at that time Labetalol 300 mg PO BID, Clonidine Patch 0.3, Hydralazine HCl 50 mg PO BID, Nifedipine XL 60 mg PO BID, Spironolactone 50 mg PO BID, Furosemide 80 mg PO DAILY - rec resume prior po meds per recent d/c list BUT ALSO RESUME PRIOR REGIMEN OF DOXAZOSIN 8MG BID (not included on d/c meds last time--notes do not specify specific intolerance or reason for stopping) - wean off labetalol gtt once po meds on board - if bp spikes can change to nifedipine gtt instead (worked well in past) - d/w'd hospitalist dr leslie - follows with HTN specialist (Dr. Dunham) at [facility], as well as GI there to optimize GI sx's that interfere with med adherence chest pain, elevated troponin: - prior presentations of htn urgency accompanied by CP as well. - this is likely sx of severely elevated BP, as in the past it was - appears hemodynamically stable, non-toxic, and cp resolved promptly with tx of BP--clinically not suspicious for acute aorta pathology or ACS - CXR no widened mediastinum (image reviewed by me), cardiomediastinal silhouette no signif change vs prior - troponins flat (0.2 x 2), non-diagnostic range, stable vs mult prior admits. this is due to elevated filling pressures and LVH. - ecg unchanged vs priors, sec to LVH repolarization abnormality - observe closely hypokalemia-->causing prolonged QT: - sec to hyperaldosteronism. - has required up to 140 meq qd K repletion in past - QT remains prolonged here--replete K, observe QT trend (rpt ECG 01/01 am) chronic syst/diast(mixed) CHF: - hypertensive cardiomyopathy - appears euvolemic, cxr improved vs prior - continue home furosemide - no symptoms concerning for HF, appears euvolemic aorta aneurysm: -4.1 cm ascending aorta on 03/2017 CT scan -sec to uncontrolled HTN -bp control, including BB as doing -routine outpt aorta surveillance CKD: -creat running around high 4's-low 5's baseline here -stable here -continue lasix, renal f/u est'd time in data review, pt exam, and formulation of mgmt plan of potentially life-threatening medical problems = 35 min
[2017-12-31] MEDS: NIFEdipine E.R 60 MG TABLET (UD) PO SCH ×2 (10:12→22:51)
--- NOTE | 2017-12-31 10:22 | PN ---
Teaching Attending Note Name of Resident: Oralia Bruner ATTENDING PHYSICIAN STATEMENT I saw and evaluated the patient. I reviewed the resident's note and discussed the case with the resident. I agree with the resident's findings and plan as documented. SUBJECTIVE: Patient feels better than last night. Chest pain improved, presented with BP of 214/152. Blood pressure improving. OBJECTIVE: Vital Signs Temperature 97.3 F L 12/31/17 01:04 Pulse Rate 58 L 12/31/17 10:00 Respiratory Rate 16 12/31/17 10:00 Blood Pressure 152/124 12/31/17 10:00 O2 Sat by Pulse Oximetry (%) 97 12/31/17 07:00 HEENT: No Jaundice, eye redness or discharge, PERRLA, EOMI. Normocephalic, atraumatic. No exudate or erythema. Neck: Supple, nontender. No JVD Chest: Good effort. Clear to auscultation and percussion. Heart: S1S2 positive, RRR, ,no rub or murmur Abdomen: Not distended, soft, nontender and no HSM. No rebound or guarding. Normoactive bowel sounds. Ext: Peripheral pulses intact. Leg edema. Skin: Warm and dry. No petechiae. Neuro: Alert. Oriented x3. CN 2-12 grossly intact. CBCD WBC 4.3 K/mm3 (4.0-10.0) 12/31/17 05:15 RBC 2.41 M/mm3 (3.60-5.2) L 12/31/17 05:15 Hgb 7.4 GM/dL (10.7-15.3) L 12/31/17 05:15 Hct 22.3 % (32.4-45.2) L 12/31/17 05:15 MCV 92.9 fl (80-96) 12/31/17 05:15 MCHC 33.0 g/dl (32.0-36.0) 12/31/17 05:15 RDW 15.6 % (11.6-15.6) 12/31/17 05:15 Plt Count 181 K/MM3 (134-434) 12/31/17 05:15 MPV 7.8 fl (7.5-11.1) 12/31/17 05:15 CMP Sodium 138 mmol/L (136-145) 12/31/17 05:15 Potassium 3.8 mmol/L (3.5-5.1) 12/31/17 05:15 Chloride 102 mmol/L (98-107) 12/31/17 05:15 Carbon Dioxide 27 mmol/L (21-32) 12/31/17 05:15 Anion Gap 9 MMOL/L (8-16) 12/31/17 05:15 BUN 62 mg/dL (7-18) H 12/31/17 05:15 Creatinine 4.9 mg/dL (0.55-1.3) H 12/31/17 05:15 Creat Clearance w eGFR 9.86 (>60) 12/31/17 05:15 Random Glucose 135 mg/dL (74-106) H 12/31/17 05:15 Calcium 8.6 mg/dL (8.5-10.1) 12/31/17 05:15 Total Bilirubin 0.6 mg/dL (0.2-1.0) 12/31/17 05:15 AST 33 U/L (15-37) 12/31/17 05:15 ALT 73 U/L (13-61) H 12/31/17 05:15 Alkaline Phosphatase 87 U/L (45-117) 12/31/17 05:15 Total Protein 5.5 g/dl (6.4-8.2) L 12/31/17 05:15 Albumin 2.6 g/dl (3.4-5.0) L 12/31/17 05:15 CARDIAC ENZYMES Creatine Kinase 157 IU/L (26-192) 12/31/17 05:15 Troponin I 0.27 ng/ml (0.00-0.05) H* 12/31/17 05:15 Current Medications Generic Name Dose Route Start Last Admin Trade Name Freq PRN Reason Stop Dose Admin Chlorhexidine Gluconate 1 applic 12/31/17 22:00 Hibiclens For Decolonization - TP HS BRET Heparin Sodium (Porcine) 5,000 unit 12/31/17 10:00 12/31/17 09:27 Heparin - SQ Not Given BID BRET Labetalol HCl 1,000 mg/ 1,000 mls @ 240 mls/hr 12/31/17 03:00 12/31/17 04:30 Dextrose IV 6 mg/min TITR BRET 360 mls/hr Titration 4 MG/MIN Morphine Sulfate 2 mg 12/31/17 06:57 Morphine Sulfate IVPUSH Q4H PRN PAIN LEVEL 6-10 Mupirocin 1 applic 12/31/17 10:00 12/31/17 09:26 Bactroban Ointment (For Decolonization) - NS 01/05/18 09:59 1 applic BID BRET Administration Nifedipine 60 mg 12/31/17 10:00 12/31/17 10:12 Procardia Xl - PO 60 mg BID BRET Administration Spironolactone 50 mg 12/31/17 10:00 12/31/17 09:25 Aldactone - PO 50 mg BID BRET Administration Home Medications Medication Instructions Recorded Labetalol HCl [Normodyne -] 300 mg PO BID 04/01/17 Clonidine Patch [Catapres Tts 0.3 mg TD WEEKLY 04/02/17 Patch -] Doxazosin Mesylate 8 mg PO BID 04/02/17 Atorvastatin Ca [Lipitor] 40 mg PO HS #30 tablet 06/20/17 Furosemide [Lasix] 80 mg PO DAILY 10/13/17 Hydralazine HCl 50 mg PO BID 10/13/17 Nifedipine [Procardia Xl] 60 mg PO BID 10/13/17 Spironolactone [Aldactone -] 50 mg PO BID 10/13/17 Selected Entries 12/27/17 12/27/17 12/27/17 04:36 06:36 09:10 Blood Pressure 214/152 199/145 186/138 12/27/17 12/27/17 12/27/17 09:30 10:00 10:08 Blood Pressure 177/140 198/141 198/141 12/27/17 12/27/17 12/31/17 10:16 12:00 01:04 Blood Pressure 189/137 142/112 221/153 12/31/17 12/31/17 04:30 05:44 Blood Pressure 203/150 178/140 CT/ABDOMEN PELVIS CT W/O CONTR HISTORY PROVIDED: Diffuse abdominal pain TECHNIQUE: Sequential axial images were obtained from the domes of the diaphragm through the symphysis pubis. The study is markedly limited without the use of any contrast material, as well as the patient's poor cooperation. Evaluation of the lung bases demonstrates a moderately enlarged heart with a small pericardial effusion. There are areas of groundglass opacification throughout the lower lobes suspicious for acute congestion. Clinical correlation is advised. Small pleural effusions are also present. The liver is enlarged measuring 23.5 cm in craniocaudad dimension. There are several hypodensities within the liver that most likely represent small cysts. Some of these are too small to accurately characterize. The spleen is not enlarged. The pancreas, adrenal glands and kidneys demonstrate no significant abnormalities. There is a 2 cm right renal cyst. The gallbladder is clear. There is no evidence of intra-abdominal or retroperitoneal lymphadenopathy or fluid collections. There is no evidence of pneumoperitoneum, bowel obstruction or intra-abdominal abscess. There is no CT evidence of acute appendicitis or diverticulitis. Examination of the pelvis demonstrates free fluid within the cul -de-sac. No evidence of pelvic masses, fluid collections or lymphadenopathy. The uterus has been removed. There are mild edematous changes throughout the subcutaneous tissues of the abdomen and pelvis. This may be on the basis of cardiac decompensation. Clinical correlation is advised. There is no evidence of acute bony abnormalities. Since a prior study of 10/21/2017, there is been no significant change. IMPRESSION: 1. Cardiomegaly, small pericardial effusion, mild congestion and small bilateral pleural effusions. 2. Hepatomegaly with scattered hepatic cysts. 3. Subcutaneous edema. 4. Free pelvic fluid, no acute pathology within the abdomen or pelvis. No significant change since 10/21/2017. Please see above discussion. Reported By: Ubaldo Palmer MD 12/27/[address] scan of the brain without intravenous contrast. Compared to prior CT scan of the head dated 10/14/2017 The ventricles and basal cisterns appear unremarkable. No mass lesion, gross acute infarct or intracranial hemorrhage are identified. Visualized paranasal sinuses and mastoid air cells are well-aerated. The calvarium is intact. Note is made of mild asymmetric soft tissue swelling of the scalp on the left side when compared to the right Impression: No significant interval change. No evidence of a focal intracranial lesion or hemorrhage seen. Mild soft tissue swelling of the scalp on the left side when compared to the right. Correlate clinically. A preliminary report was forwarded by the [facility] [employer] [facility], [employer]. Reported By: Alex Conklin MD 12/27/17 2273 ASSESSMENT AND PLAN: This is a 37 year old female with a significant PMHx of uncontrolled HTN due to noncompliance , Hx of Aortic aneurysm, hyperaldosteronism, CKD who presented to the hospital complaining of having chest pain with elevated BP of 214/152. #Hypertensive emergency: possible due to non compliance with her medications, previously patient was having Nausea and vomiting , got readmitted for elevated blood pressure of 221/153 . Was started on Labetolol drip if no response will restart the patient on Cardine drip, usually response well to cardine drip. We will restart all her oral meds as well. Labetalol 300 mg PO BID, Clonidine Patch 0.3, Hydralazine HCl 50 mg PO BID, Nifedipine XL 60 mg PO BID, Spironolactone 50 mg PO BID, Furosemide 80 mg PO daily, and doxazosin 8mg bid, Continue all her meds for now and upon discharge. Patient follows with HTN specialist (Dr. Dunham) at [facility]. #Chest pain with elevated Troponin: Most likely due to severely elevated blood pressure due to demand Ischemia. Cardio on the case . as per cardio: no change in EKG. will continue to observe closely # hx of CHF with Hypertensive CM on Lasix continue # Hx of Ascending Aortic aneurysm (4.1cm) on CT 04/12 due to Uncontrolled HTN , need tight BP control , continue outpt aorta surveillance #Conn's Syndrome : replete potassium , patient has prolonged QTc, keep Potassium above 4.0, Hypokalemia due to Conn's syndrome. continue to trend EKG. # Qtc prolongation: Avoid meds.that prolong QTc (Zofran) #MADISON on CKD: baseline 4.1-4.5, today 4.[address] Sunshine consulted. Monitor #Anemia: Hgb 9.0 in the setting of chronic Kidney disease ,iron studies ordered ,FOBT ordered DVT PX: SCDS, Heparin sq
[2017-12-31] MEDS ORDERED: cloNIDine-TTS 0.3 MG /24 HRS PATCH.TDWK TD SCH (10:30)
[2017-12-31] MEDS: DOXAZOSIN MESYLATE 8 MG TABLET PO SCH ×2 (11:05→22:57)
--- NOTE | 2017-12-31 11:07 | PN ---
Physical Exam: SUBJECTIVE: Patient seen and examined. Lethargic. Still has chest pain since yesterday but better. Denies dizzziness, nausea, vomiting, sob. OBJECTIVE: Vital Signs Period Temp Pulse Resp BP Sys/Li Pulse Ox Last 24 Hr 97.3 F 58-84 14-26 147-221/120-153 97-100 GENERAL: Patient lethargic, barely following commands. EYES: PERRL, sclera anicteric, conjunctiva clear. No ptosis. ENT: oropharynx clear without exudates, moist mucous membranes. NECK: supple. LUNGS: Breath sounds equal, clear to auscultation bilaterally HEART: Regular rate and rhythm, S1, S2 without murmur, rub or gallop. ABDOMEN: Soft, nontender, nondistended, normoactive bowel sounds EXTREMITIES: 2+ pulses, warm, well-perfused, no edema. NEUROLOGICAL: unable to perform Laboratory Results - last 24 hr 12/31/17 12/31/17 12/31/17 01:30 01:30 01:49 WBC 4.9 RBC 2.43 L Hgb 7.5 L Hct 22.4 L MCV 92.5 MCH 30.8 MCHC 33.3 RDW 15.8 H Plt Count 215 MPV 8.0 Absolute Neuts (auto) 4.0 Neutrophils % 82.4 Lymphocytes % 11.0 Monocytes % 3.3 L Eosinophils % 2.6 D Basophils % 0.7 Nucleated RBC % 0 PT with INR INR Sodium Cancelled Potassium Cancelled Chloride Cancelled Carbon Dioxide Cancelled Anion Gap Cancelled BUN Cancelled Creatinine Cancelled Creat Clearance w eGFR Cancelled Random Glucose Cancelled Calcium Cancelled Phosphorus Magnesium Total Bilirubin Cancelled AST Cancelled ALT Cancelled Alkaline Phosphatase Cancelled Creatine Kinase Cancelled Creatine Kinase Index CK-MB (CK-2) Troponin I Cancelled Total Protein Cancelled Albumin Cancelled Serum , Qual Cancelled Urine Color Urine Appearance Urine pH Ur Specific [place] Urine Protein Urine Glucose (UA) Urine Ketones Urine Blood Urine Nitrite Urine Bilirubin Urine Urobilinogen Ur Leukocyte Esterase Urine WBC (Auto) Urine RBC (Auto) Ur Epithelial Cells Urine HCG, Qual 12/31/17 12/31/17 12/31/17 02:04 02:07 02:40 WBC RBC Hgb Hct MCV MCH MCHC RDW Plt Count MPV Absolute Neuts (auto) Neutrophils % Lymphocytes % Monocytes % Eosinophils % Basophils % Nucleated RBC % PT with INR INR Sodium 140 Potassium 3.8 Chloride 106 Carbon Dioxide 26 Anion Gap 8 BUN 64 H Creatinine 4.9 H Creat Clearance w eGFR 9.86 Random Glucose 96 Calcium 8.4 L Phosphorus Magnesium Total Bilirubin 0.6 AST 33 ALT 74 H Alkaline Phosphatase 87 Creatine Kinase 161 Creatine Kinase Index 1.3 CK-MB (CK-2) 2.10 Troponin I 0.28 H* Total Protein 5.5 L Albumin 2.6 L Serum , Qual Urine Color Ltyellow Urine Appearance Clear Urine pH 6.0 Ur Specific [place] 1.008 Urine Protein 2+ H Urine Glucose (UA) Negative Urine Ketones Negative Urine Blood 1+ H Urine Nitrite Negative Urine Bilirubin Negative Urine Urobilinogen Negative Ur Leukocyte Esterase 1+ H D Urine WBC (Auto) 29 Urine RBC (Auto) 1 Ur Epithelial Cells Rare Urine HCG, Qual Negative 12/31/17 12/31/17 12/31/17 05:15 05:15 05:15 WBC 4.3 RBC 2.41 L Hgb 7.4 L Hct 22.3 L MCV 92.9 MCH 30.7 MCHC 33.0 RDW 15.6 Plt Count 181 MPV 7.8 Absolute Neuts (auto) 3.3 Neutrophils % 78.2 Lymphocytes % 15.1 D Monocytes % 4.2 Eosinophils % 2.3 Basophils % 0.2 Nucleated RBC % 0 PT with INR 13.30 H INR 1.18 H Sodium 138 Potassium 3.8 Chloride 102 Carbon Dioxide 27 Anion Gap 9 BUN 62 H Creatinine 4.9 H Creat Clearance w eGFR 9.86 Random Glucose 135 H Calcium 8.6 Phosphorus Magnesium 2.1 Total Bilirubin 0.6 AST 33 ALT 73 H Alkaline Phosphatase 87 Creatine Kinase 157 Creatine Kinase Index CK-MB (CK-2) Troponin I 0.27 H* Total Protein 5.5 L Albumin 2.6 L Serum , Qual Urine Color Urine Appearance Urine pH Ur Specific [place] Urine Protein Urine Glucose (UA) Urine Ketones Urine Blood Urine Nitrite Urine Bilirubin Urine Urobilinogen Ur Leukocyte Esterase Urine WBC (Auto) Urine RBC (Auto) Ur Epithelial Cells Urine HCG, Qual 12/31/17 05:15 WBC RBC Hgb Hct MCV MCH MCHC RDW Plt Count MPV Absolute Neuts (auto) Neutrophils % Lymphocytes % Monocytes % Eosinophils % Basophils % Nucleated RBC % PT with INR INR Sodium Potassium Chloride Carbon Dioxide Anion Gap BUN Creatinine Creat Clearance w eGFR Random Glucose Calcium Phosphorus 4.2 Magnesium Total Bilirubin AST ALT Alkaline Phosphatase Creatine Kinase Creatine Kinase Index CK-MB (CK-2) Troponin I Total Protein Albumin Serum , Qual Urine Color Urine Appearance Urine pH Ur Specific [place] Urine Protein Urine Glucose (UA) Urine Ketones Urine Blood Urine Nitrite Urine Bilirubin Urine Urobilinogen Ur Leukocyte Esterase Urine WBC (Auto) Urine RBC (Auto) Ur Epithelial Cells Urine HCG, Qual Active Medications Generic Name Dose Route Start Last Admin Trade Name Freq PRN Reason Stop Dose Admin Atorvastatin Calcium 40 mg 12/31/17 22:00 Lipitor - PO HS BRET Chlorhexidine Gluconate 1 applic 12/31/17 22:00 Hibiclens For Decolonization - TP HS BRET Clonidine HCl 0.3 mg 12/31/17 10:30 Catapres Tts Patch - TD Stevens@1000 BRET Doxazosin Mesylate 8 mg 12/31/17 10:30 Cardura - PO BID BRET Heparin Sodium (Porcine) 5,000 unit 12/31/17 10:00 12/31/17 09:27 Heparin - SQ Not Given BID BRET Hydralazine HCl 50 mg 12/31/17 22:00 Apresoline - PO BID BRET Labetalol HCl 1,000 mg/ 1,000 mls @ 240 mls/hr 12/31/17 03:00 12/31/17 04:30 Dextrose IV 6 mg/min TITR BRET 360 mls/hr Titration 4 MG/MIN Labetalol HCl 300 mg 12/31/17 22:00 Normodyne - PO BID BRET Morphine Sulfate 2 mg 12/31/17 06:57 Morphine Sulfate IVPUSH Q4H PRN PAIN LEVEL 6-10 Mupirocin 1 applic 12/31/17 10:00 12/31/17 09:26 Bactroban Ointment (For Decolonization) - NS 01/05/18 09:59 1 applic BID BRET Administration Nifedipine 60 mg 12/31/17 10:00 12/31/17 10:12 Procardia Xl - PO 60 mg BID BRET Administration Potassium Chloride 40 meq 01/01/18 10:00 K-Dur - PO DAILY BRET Spironolactone 50 mg 12/31/17 10:00 12/31/17 09:25 Aldactone - PO 50 mg BID BRET Administration ASSESSMENT/PLAN: This is a 37 year old female with a significant PMHx of uncontrolled HTN, hyperaldosteronism, CKD who presented to the hospital complaining of having headache with elevated BP of 214/152. #Hypertensive emergency -due to noncompliance of medications -was recently admitted for similar events -patient with known history of hyperaldosteronism. -Labetolol drip, if not responding, start Cardine drip -BP improving, now down to 152/124. -cont. to monitor -follow cardio reccs #Conn syndrome -potassium repleted -cont. home PO meds once able -Spironolactone #MADISON on CKD -cr 4.9 @ baseline -avoid nephrotoxins -monitor -follow nephro reccs #Elevated troponin -likely demand from HTN -trending down -follow cardio reccs #Chronic CHF (D &S): -hypertensive cardiomyopathy -appears euvolemic -no symptoms concerning for HF, appears euvolemic #FEN -no iv fluids -monitor lytes. -sodium controlled diet #dvt -hep sq cont. ICU monitoring Visit type - Emergency Visit Emergency Visit: Yes ED Registration Date: 12/31/17 Care time: The patient presented to the Emergency Department on the above date and was hospitalized for further evaluation of their emergent condition. - New Patient This patient is new to me today: Yes Date on this admission: 12/31/17 - Critical Care Critical Care patient: Yes Total Critical Care Time (in minutes): 40 Critical Care Statement: The care of this patient involved high complexity decision making to prevent further life threatening deterioration of the patient 's condition and/or to evaluate & treat vital organ system(s) failure or risk of failure.
[2017-12-31] MEDS ORDERED: TRIMETHOBENZAMIDE HCL 200MG/2ML INJ IM ONE (11:20)
--- NOTE | 2017-12-31 15:02 | CONSULT ---
Consult Consult Specialty:: Nephrology Reason for Consultation:: CKD - History of Present Illness Chief Complaint: chest pain History of Present Illness: Pt is a 37 year old female with pmhx of CKD, Conn syndrom, HTN, CHF and non compliance who presents to the hospital with chest pain and HTN. She was discharged from the hospital on the . She says that the chest pain was similar to her last presentation. She was admitted to the ICU and started on a labetolol drip. Her blood pressure is improving. She is not compliant with her meds. - History Source History Provided By: Patient - Past Medical History Cardio/Vascular: Yes: CAD, HTN Renal/: Yes: Renal Inusuff, Other (Conn syndrome) Endocrine: Yes: Other (hyperaldosteronism) - Past Surgical History Past Surgical History: Yes: - Alcohol/Substance Use Hx Alcohol Use: No History of Substance Use: reports: None - Smoking History Smoking history: Never smoked Have you smoked in the past 12 months: No If you are a former smoker, when did you quit?: january - Social History ADL: Independent Occupation: [employer] History of Recent Travel: No Home Medications - Allergies Allergies/Adverse Reactions: Allergies Allergy/AdvReac Type Severity Reaction Status Date / Time No Known Allergies Allergy Verified 12/31/17 01:03 - Home Medications Home Medications: Ambulatory Orders Atorvastatin Ca [Lipitor] 40 mg PO HS 30 Days #30 tablet 12/29/17 Clonidine Patch [Catapres Tts Patch -] 0.3 mg TD WEEKLY 14 Days #2 patch Hydralazine HCl 50 mg PO BID 30 Days #60 tablet 12/29/17 Labetalol HCl [Normodyne -] 300 mg PO BID 30 Days #60 tablet 12/29/17 Nifedipine [Procardia Xl] 60 mg PO BID 30 Days #60 tab 12/29/17 Spironolactone [Aldactone -] 50 mg PO BID 30 Days #60 tab 12/29/17 Family Disease History - Family Disease History Family Disease History: Other: Grandparent (htn), Mother (htn) Review of Systems - Review of Systems Constitutional: reports: Malaise Eyes: reports: No Symptoms HENT: reports: No Symptoms Neck: reports: No Symptoms Cardiovascular: reports: Chest Pain, Edema, Shortness of Breath Respiratory: reports: SOB on Exertion Gastrointestinal: reports: Nausea, Vomiting Genitourinary: reports: No Symptoms Musculoskeletal: reports: No Symptoms Integumentary: reports: No Symptoms Neurological: reports: No Symptoms Endocrine: reports: No Symptoms Hematology/Lymphatic: reports: No Symptoms Psychiatric: reports: No Symptoms Physical Exam Vital Signs: Vital Signs Temperature 97.3 F L 12/31/17 01:04 Pulse Rate 58 L 12/31/17 13:00 Respiratory Rate 16 12/31/17 13:00 Blood Pressure 141/116 12/31/17 13:00 O2 Sat by Pulse Oximetry (%) 97 12/31/17 07:00 Constitutional: Yes: Calm Eyes: Yes: Conjunctiva Clear HENT: Yes: Atraumatic Cardiovascular: Yes: S1, S2 Respiratory: Yes: CTA Bilaterally Gastrointestinal: Yes: Normal Bowel Sounds, Soft Renal/: Yes: WNL Musculoskeletal: Yes: WNL Edema: Yes Edema: LLE: Trace, RLE: Trace Integumentary: Yes: Tattoos Neurological: Yes: Oriented Psychiatric: Yes: Oriented Labs: CBC, BMP 12/31/17 05:15 12/31/17 05:15 Imaging - Results Chest X-ray: Report Reviewed Problem List - Problems (1) Hypertensive emergency Code(s): I16.1 - HYPERTENSIVE EMERGENCY (2) Acute on chronic diastolic CHF (congestive heart failure) Code(s): I50.33 - ACUTE ON CHRONIC DIASTOLIC (CONGESTIVE) HEART FAILURE (3) Chest pain Code(s): R07.9 - CHEST PAIN, UNSPECIFIED Qualifiers: Chest pain type: unspecified Qualified Code(s): R07.9 - Chest pain, unspecified (4) CKD (chronic kidney disease) Code(s): N18.9 - CHRONIC KIDNEY DISEASE, UNSPECIFIED Qualifiers: Chronic kidney disease stage: stage 4 (severe) Qualified Code(s): N18.4 - Chronic kidney disease, stage 4 (severe) Assessment/Plan Current Medications Generic Name Dose Route Start Last Admin Trade Name Freq PRN Reason Stop Dose Admin Atorvastatin Calcium 40 mg 12/31/17 22:00 Lipitor - PO HS BRET Chlorhexidine Gluconate 1 applic 12/31/17 22:00 Hibiclens For Decolonization - TP HS BRET Clonidine HCl 0.3 mg 12/31/17 10:30 12/31/17 12:20 Catapres Tts Patch - TD 0.3 mg Stevens@1000 BRET Administration Doxazosin Mesylate 8 mg 12/31/17 10:30 12/31/17 11:05 Cardura - PO 8 mg BID BRET Administration Heparin Sodium (Porcine) 5,000 unit 12/31/17 10:00 12/31/17 09:27 Heparin - SQ Not Given BID BRET Hydralazine HCl 50 mg 12/31/17 22:00 Apresoline - PO BID BRET Labetalol HCl 1,000 mg/ 1,000 mls @ 240 mls/hr 12/31/17 03:00 12/31/17 11:41 Dextrose IV 0.5 mg/min TITR BRET 30 mls/hr Titration 4 MG/MIN Labetalol HCl 300 mg 12/31/17 22:00 Normodyne - PO BID BRET Morphine Sulfate 2 mg 12/31/17 06:57 Morphine Sulfate IVPUSH Q4H PRN PAIN LEVEL 6-10 Mupirocin 1 applic 12/31/17 10:00 12/31/17 09:26 Bactroban Ointment (For Decolonization) - NS 01/05/18 09:59 1 applic BID BRET Administration Nifedipine 60 mg 12/31/17 10:00 12/31/17 10:12 Procardia Xl - PO 60 mg BID BRET Administration Potassium Chloride 40 meq 01/01/18 10:00 K-Dur - PO DAILY BRET Spironolactone 50 mg 12/31/17 10:00 12/31/17 09:25 Aldactone - PO 50 mg BID BRET Administration Impression 1. Conn/hyperaldo 2. htn emergency 3. CKD 4. MADISON 5. HTN poorly controlled 6. non compliance 7. vomiting 8. hypokalemia Plan - resume home meds - titrate downt the drip - cardio input appreciated - non compliance is a problem - monitor blood pressure in ICU - cont aldactone - monitor renal function - discussed with ICU team Dr Sunshine
[2017-12-31 18:21] LABS: COCAINE, UR NEGATIVE ng/ml (CUTOFF=300); METHADONE, UR NEGATIVE ng/ml (CUTOFF=300); PHENCYCLIDINE,URINE NEGATIVE ng/ml (CUTOFF=25); URINE AMPHETAMINES NEGATIVE ng/ml (CUTOFF=500); URINE BARBITURATES NEGATIVE ng/ml (CUTOFF=200); URINE BENZODIAZEPINES NEGATIVE ng/ml (CUTOFF=200)
[2017-12-31 18:23] LABS: OPIATES, URI POSITIVE ng/ml (CUTOFF=300)
--- NOTE | 2017-12-31 21:13 | EKG ---
Test Reason : Blood Pressure : / mmHG Vent. Rate : 059 BPM Atrial Rate : 059 BPM P-R Int : 208 ms QRS Dur : 108 ms QT Int : 524 ms P-R-T Axes : 051 -12 140 degrees QTc Int : 518 ms SINUS BRADYCARDIA POSSIBLE LEFT ATRIAL ENLARGEMENT PROLONGED QT ABNORMAL ECG WHEN COMPARED WITH ECG OF 31-DEC-2017 00:53, NO SIGNIFICANT CHANGE WAS FOUND Confirmed by SANTA DEGROOT MD ([id number]) on 12/31/2017 9:12:40 PM Referred By: Paz ODOM Confirmed By:SANTA DEGROOT MD
--- NOTE | 2017-12-31 21:17 | EKG ---
Test Reason : Blood Pressure : / mmHG Vent. Rate : 084 BPM Atrial Rate : 084 BPM P-R Int : 176 ms QRS Dur : 096 ms QT Int : 416 ms P-R-T Axes : 056 -03 126 degrees QTc Int : 491 ms NORMAL SINUS RHYTHM POSSIBLE LEFT ATRIAL ENLARGEMENT PROLONGED QT ABNORMAL ECG WHEN COMPARED WITH ECG OF 28-DEC-2017 10:21, SINUS RHYTHM HAS REPLACED ECTOPIC ATRIAL RHYTHM NONSPECIFIC T WAVE ABNORMALITY NO LONGER EVIDENT IN INFERIOR LEADS Confirmed by SANTA DEGROOT MD ([id number]) on 12/31/2017 9:17:19 PM Referred By: Confirmed By:SANTA DEGROOT MD
[2017-12-31] MEDS ORDERED: CHLORHEXIDINE GLUCONATE 4% CLEANSER FOR DECOLONIZATION TP SCH (22:00)
[2017-12-31] MEDS ORDERED: ATORVASTATIN CA 40 MG TABLET (FP) PO SCH (22:00)
[2017-12-31] MEDS ORDERED: PT OWN MED DRAWER 7, Y5N ONE (22:49)
[2017-12-31] MEDS: hydrALAZINE HCL 50 MG TABLET (FP) PO SCH (22:51)
[2017-12-31] MEDS: LABETALOL HCL 200 MG TABLET (FP) PO SCH (22:51)
[2018-01-01] MEDS: LABETALOL HCL INJECTION 1,000 MG in DEXTROSE 5%-WATER - 800 ML IV SCH (05:37)
[2018-01-01 05:47] LABS: HEMATOCRIT 22.5 % (32.4-45.2); HEMOGLOBIN 7.6 GM/dL (10.7-15.3); MCH 31.2 pg (25.7-33.7); MCHC 33.6 g/dl (32.0-36.0); MEAN CELL VOLUME 92.9 fl (80-96); MEAN PLT VOLUME 7.9 fl (7.5-11.1); PLATELET COUNT 195 K/MM3 (134-434); RBC 2.42 M/mm3 (3.60-5.2); WHITE BLOOD COUNT 4.1 K/mm3 (4.0-10.0)
[2018-01-01 06:01] LABS: ALBUMIN 2.4 g/dl (3.4-5.0); ALK PHOS 74 U/L (45-117); ANION GAP 11 MMOL/L (8-16); BILIRUBIN,TOTAL 0.6 mg/dL (0.2-1.0); BLOOD UREA NITROGEN 63 mg/dL (7-18); CALCIUM 8.7 mg/dL (8.5-10.1); CHLORIDE 101 mmol/L (98-107); CO2 25 mmol/L (21-32); CREATININE 5.3 mg/dL (0.55-1.3); GLUCOSE,RANDOM 95 mg/dL (74-106); MAGNESIUM 2.1 mg/dL (1.8-2.4); PHOSPHOROUS 4.7 mg/dL (2.5-4.9); POTASSIUM 4.1 mmol/L (3.5-5.1); SGOT/AST 31 U/L (15-37); SGPT/ALT 73 U/L (13-61); SODIUM 137 mmol/L (136-145); TOT PROT 5.2 g/dl (6.4-8.2)
--- NOTE | 2018-01-01 08:38 | PN ---
Physical Exam: SUBJECTIVE: Patient seen and examined this AM. Pt states "I am on my phone" when we enter the room, she has not been cooperating with staff and has refused SCDs and some medications. There were no acute events overnight and BP has been stable on PO medications. Pt has been tolerating PO intake with no nausea and no vomiting. Yesterday, pt urine toxicology positive for opiates (from prior admission) and ecstasy. OBJECTIVE: Vital Signs Period Temp Pulse Resp BP Sys/Li Pulse Ox Last 24 Hr 98 F-98.4 F 56-66 14-18 110-168/70-124 97-99 GENERAL: The patient alert and oriented and can answer questions appropriately when prompted. HEAD: Normal with no signs of trauma. EYES: Extraocular movements intact, sclera anicteric, conjunctiva clear. No ptosis. ENT: External ears normal, nares patent, oropharynx clear without exudates, moist mucous membranes. NECK: Trachea midline, full range of motion, supple. LUNGS: Breath sounds equal, clear to auscultation bilaterally, no wheezes, no crackles, no accessory muscle use. HEART: Regular rate and rhythm, S1, S2 without murmur, rub or gallop. ABDOMEN: Soft, nontender, normoactive bowel sounds, no guarding, no rebound, no hepatosplenomegaly, no masses. Abdominal distension improved from yesterday. EXTREMITIES: 2+ pulses, warm, well-perfused, no pitting edema. NEUROLOGICAL: Cranial nerves II through XII grossly intact. Normal speech, gait normal. PSYCH: Flat affect, does not appear motivated to cooperate with exam. SKIN: Warm, dry, normal turgor, no rashes or lesions noted. Laboratory Results - last 24 hr 12/31/17 12/31/17 01/01/18 05:15 16:10 05:15 WBC 4.1 RBC 2.42 L Hgb 7.6 L Hct 22.5 L MCV 92.9 MCH 31.2 MCHC 33.6 RDW 16.0 H Plt Count 195 MPV 7.9 Sodium Potassium Chloride Carbon Dioxide Anion Gap BUN Creatinine Creat Clearance w eGFR Random Glucose Calcium Phosphorus Magnesium Total Bilirubin AST ALT Alkaline Phosphatase Creatine Kinase Index 1.2 CK-MB (CK-2) 2.04 Total Protein Albumin Opiates Screen Positive Methadone Screen Negative Barbiturate Screen Negative Phencyclidine Screen Negative Ur Amphetamines Screen Negative MDMA (Ecstasy) Screen Positive Benzodiazepines Screen Negative Cocaine Screen Negative U Marijuana (THC) Screen Negative 01/01/18 05:15 WBC RBC Hgb Hct MCV MCH MCHC RDW Plt Count MPV Sodium 137 Potassium 4.1 Chloride 101 Carbon Dioxide 25 Anion Gap 11 BUN 63 H Creatinine 5.3 H Creat Clearance w eGFR 9.01 Random Glucose 95 Calcium 8.7 Phosphorus 4.7 Magnesium 2.1 Total Bilirubin 0.6 AST 31 ALT 73 H Alkaline Phosphatase 74 Creatine Kinase Index CK-MB (CK-2) Total Protein 5.2 L Albumin 2.4 L Opiates Screen Methadone Screen Barbiturate Screen Phencyclidine Screen Ur Amphetamines Screen MDMA (Ecstasy) Screen Benzodiazepines Screen Cocaine Screen U Marijuana (THC) Screen Active Medications Generic Name Dose Route Start Last Admin Trade Name Freq PRN Reason Stop Dose Admin Atorvastatin Calcium 40 mg 12/31/17 22:00 12/31/17 22:51 Lipitor - PO 40 mg HS BRET Administration Chlorhexidine Gluconate 1 applic 12/31/17 22:00 12/31/17 23:06 Hibiclens For Decolonization - TP 1 applic HS BRET Administration Clonidine HCl 0.3 mg 12/31/17 10:30 12/31/17 12:20 Catapres Tts Patch - TD 0.3 mg Stevens@1000 BRET Administration Doxazosin Mesylate 8 mg 01/01/18 10:00 Cardura - PO BID BRET Heparin Sodium (Porcine) 5,000 unit 12/31/17 10:00 12/31/17 23:07 Heparin - SQ Not Given BID BRET Hydralazine HCl 50 mg 12/31/17 22:00 12/31/17 22:51 Apresoline - PO 50 mg BID BRET Administration Labetalol HCl 1,000 mg/ 1,000 mls @ 240 mls/hr 12/31/17 03:00 01/01/18 05:37 Dextrose IV Not Given TITR BRET 4 MG/MIN Labetalol HCl 300 mg 12/31/17 22:00 12/31/17 22:51 Normodyne - PO 300 mg BID BRET Administration Morphine Sulfate 2 mg 12/31/17 06:57 12/31/17 22:52 Morphine Sulfate IVPUSH 2 mg Q4H PRN Administration PAIN LEVEL 6-10 Mupirocin 1 applic 12/31/17 10:00 12/31/17 23:00 Bactroban Ointment (For Decolonization) - NS 01/05/18 09:59 1 applic BID BRET Administration Nifedipine 60 mg 12/31/17 10:00 12/31/17 22:51 Procardia Xl - PO 60 mg BID BRET Administration Potassium Chloride 40 meq 01/01/18 10:00 K-Dur - PO DAILY BRET Spironolactone 50 mg 12/31/17 10:00 12/31/17 22:51 Aldactone - PO 50 mg BID BRET Administration ASSESSMENT/PLAN: Patient is a 37 y/o F with PMH of Conn's Syndrome, CHF, CKD, and uncontrolled HTN who presents for Hypertensive Emergency 2/2 to uncontrolled Conn's Syndrome. She was discharged 12/29 and returned to ED on 12/30 due to L-sided chest pain and nausea. 1. Neuro -Headache 2/2 to hypertensive emergency Pt given morphine 8mg in ED for pain. Has not required additional pain control this admission. 2. Cardio -Hypertensive Emergency 2/2 to Conn's Syndrome (baseline ~155/100) Pt was started on labetalol drip in ER -- switched to home PO meds -- started Procardia XL 60 BID, Cardura 8 mg PO BID, Labetalol 300 mg PO BID, Hydralazine 50 mg PO BID ECG has not shown additional changes, pt being followed by Dr. Madrigal. Troponin .2 and was downtrending. No interventions required at this time ( likely demand ischemia) Urine toxicology screen positive for opiates (likely from pain medications on last admission) and ecstasy. -Anemia (Normocytic likely 2/2 to CKD) Started Procrit and IV iron. Has been stable since admission (7.6/22.5 today) . -Ascending Aortic Aneyrusm 2/2 to HTN - 4.[address] scan from 04/02, continue to monitor; no changes seen on chest x-ray 3. GI -Nausea/vomiting 2/2 to Conn's Syndrome NO additional zofran as pt has prolonged QT (ECG in ED: QTc 491, today 518) Offered pt IM Tigan, pt refused; no n/v today. Monitor QTc w/ administration of any QT prolonging agents -Hepatomegaly CT A/P showed 5 stable hepatic cysts; Will monitor for increased ascites or abdominal swelling. 4. Renal -CKD stage 5 BUN/Cr appears to be at baseline- Cr 5.[address] Sunshine, discussed dialysis vs transplant and management during last admission Spironolactone 50 mg BID 6. DVT ppx Heparin TID and SCDs -- pt refused and we have discussed increased risks of clots 7. F/E/N Na controlled diet Replete electrolytes as needed: keep K+ above 4.0 and Mag above 2.0 an Phos above 3.0 40 mg PO KCl Qday; Pt refused KCl yesterday Dispo: transfer to Med/Surg floor today as pt BP is stable and improved to baseline. Problem List - Problems (1) Aldosterone excess (Conn syndrome) Code(s): E26.01 - CONN'S SYNDROME (2) Hypertensive emergency Code(s): I16.1 - HYPERTENSIVE EMERGENCY (3) Chest pain Code(s): R07.9 - CHEST PAIN, UNSPECIFIED Qualifiers: Chest pain type: unspecified Qualified Code(s): R07.9 - Chest pain, unspecified (4) Elevated troponin Code(s): R74.8 - ABNORMAL LEVELS OF OTHER SERUM ENZYMES (5) CKD (chronic kidney disease) Code(s): N18.9 - CHRONIC KIDNEY DISEASE, UNSPECIFIED Qualifiers: Chronic kidney disease stage: stage 4 (severe) Qualified Code(s): N18.4 - Chronic kidney disease, stage 4 (severe) Visit type - Emergency Visit Emergency Visit: Yes ED Registration Date: 12/31/17 Care time: The patient presented to the Emergency Department on the above date and was hospitalized for further evaluation of their emergent condition. - New Patient This patient is new to me today: No - Critical Care Critical Care patient: Yes Total Critical Care Time (in minutes): 30 Critical Care Statement: The care of this patient involved high complexity decision making to prevent further life threatening deterioration of the patient 's condition and/or to evaluate & treat vital organ system(s) failure or risk of failure. - Discharge Referral Referred to [facility] Yes
[2018-01-01] MEDS ORDERED: PT OWN MED DRAWER 7, Y5N ONE ×2 (09:15→16:11)
[2018-01-01] MEDS: NIFEdipine E.R 60 MG TABLET (UD) PO SCH (09:18)
[2018-01-01] MEDS: LABETALOL HCL 200 MG TABLET (FP) PO SCH (09:18)
[2018-01-01] MEDS: SPIRONOLACTONE 25 MG TABLET (FP) PO SCH (09:19)
[2018-01-01] MEDS: hydrALAZINE HCL 50 MG TABLET (FP) PO SCH (09:20)
[2018-01-01] MEDS: HEPARIN NA (PORCINE) 5,000 UNITS/ML 1ML VIAL SQ SCH (09:21)
[2018-01-01] MEDS: MUPIROCIN 2% TOPICAL OINTMENT FOR DECOLONIZATION NS SCH (09:27)
--- NOTE | 2018-01-01 09:54 | EKG ---
Test Reason : Blood Pressure : / mmHG Vent. Rate : 062 BPM Atrial Rate : 062 BPM P-R Int : 174 ms QRS Dur : 100 ms QT Int : 476 ms P-R-T Axes : 065 -13 167 degrees QTc Int : 483 ms NORMAL SINUS RHYTHM POSSIBLE LEFT ATRIAL ENLARGEMENT T WAVE ABNORMALITY, CONSIDER ANTEROLATERAL ISCHEMIA PROLONGED QT ABNORMAL ECG WHEN COMPARED WITH ECG OF 31-DEC-2017 08:51, NO SIGNIFICANT CHANGE WAS FOUND Confirmed by GIRMA ZHU, ROSA MARIA ([id number]) on 01/01/2018 9:54:14 AM Referred By: Confirmed By:ROSA MARIA RAYO MD
[2018-01-01] MEDS ORDERED: POTASSIUM CHLORIDE TABS 10 MEQ TABLET.ER (FP) PO SCH (10:00)
[2018-01-01] MEDS ORDERED: DOXAZOSIN MESYLATE 4 MG TABLET PO SCH ×2 (10:00→22:00)
--- NOTE | 2018-01-01 10:08 | PN ---
Progress Note, Physician Chief Complaint: cp History of Present Illness: cp nearly resolved--very mild L breast area pain persists. no back pain. no sob. no dizzy/presyncope or new neuro deficit - Current Medication List Current Medications: Active Medications Atorvastatin Calcium (Lipitor -) 40 mg PO HS [facility] Last Admin: 12/31/17 22:51 Dose: 40 mg Chlorhexidine Gluconate (Hibiclens For Decolonization -) 1 applic TP HS [facility] Last Admin: 12/31/17 23:06 Dose: 1 applic Clonidine HCl (Catapres Tts Patch -) 0.3 mg TD Stevens@1000 [facility] Last Admin: 12/31/17 12:20 Dose: 0.3 mg Doxazosin Mesylate (Cardura -) 8 mg PO BID [facility] Last Admin: 01/01/18 09:19 Dose: 8 mg Heparin Sodium (Porcine) (Heparin -) 5,000 unit SQ BID [facility] Last Admin: 01/01/18 09:21 Dose: Not Given Hydralazine HCl (Apresoline -) 50 mg PO BID [facility] Last Admin: 01/01/18 09:20 Dose: 50 mg Labetalol HCl 1,000 mg/ (Dextrose) 1,000 mls @ 240 mls/hr IV TITR [facility] Last Admin: 01/01/18 05:37 Dose: Not Given Labetalol HCl (Normodyne -) 300 mg PO BID [facility] Last Admin: 01/01/18 09:18 Dose: 300 mg Morphine Sulfate (Morphine Sulfate) 2 mg IVPUSH Q4H PRN PRN Reason: PAIN LEVEL 6-10 Last Admin: 12/31/17 22:52 Dose: 2 mg Mupirocin (Bactroban Ointment (For Decolonization) -) 1 applic NS BID [facility] Stop: 01/05/18 09:59 Last Admin: 01/01/18 09:27 Dose: 1 applic Nifedipine (Procardia Xl -) 60 mg PO BID [facility] Last Admin: 01/01/18 09:18 Dose: 60 mg Potassium Chloride (K-Dur -) 40 meq PO DAILY [facility] Last Admin: 01/01/18 09:18 Dose: 40 meq Spironolactone (Aldactone -) 50 mg PO BID [facility] Last Admin: 01/01/18 09:19 Dose: 50 mg - Objective Vital Signs: Vital Signs Temperature 98.1 F 01/01/18 08:00 Pulse Rate 64 01/01/18 09:00 Respiratory Rate 14 01/01/18 09:00 Blood Pressure 131/100 01/01/18 09:00 O2 Sat by Pulse Oximetry (%) 99 01/01/18 08:00 Constitutional: Yes: Well Nourished, No Distress, Calm Cardiovascular: Yes: Regular Rate and Rhythm, Murmur (2/6 syst ejection murmur LUSB), S1, S2. No: JVD, Gallop Respiratory: Yes: Regular, CTA Bilaterally. No: Accessory Muscle Use, Rales, Wheezes Extremities: No: Cold Edema: No Neurological: Yes: Alert, Oriented Psychiatric: No: Agitated Labs: CBC, BMP 01/01/18 05:15 01/01/18 05:15 INR, PTT INR 1.18 (0.83-1.09) H 12/31/17 05:15 Assessment/Plan ecg 12/31 #1: NSR, LVH with repola abn/diffuse ST-Ts--no signif change vs priors 01/02 and 11/01 ecg 12/31 #2: no change ecg : NSR with LVH and ST-Ts unchanged. QT improving CXR: congestive changes, CM, unfolded aorta no change vs prior echo 06/2017: mild lve. 1+ conc lvh. mild dec lv sys fn. mild-mod lat wall HK. mod inferolateral wall HK. 1+ lae. 1+ ar, mod mr, nl aortic root size. small pericardial effusion (images reviewed by dr taylor: no regionality to LV hypokinesis--there is global mild-moderate LV hypokinesis, EF 40-45%. moderate conc LVH. moderate MR) echo 03/2017: mod LVH (concentric); nl LVSF. nl RV. nl LA. mild AI/MR/TR. normal aortic root. small effusion chest CT 03/2017: Ascending aorta 4.1 cm. PA dilation (3.6 cm). tele: NSR hypertensive urgency, known h/o secondary HTN/hyperaldosteronism, hypertensive heart dz/renal dz: - HTN urgency admit here previously triggered by non-adherence to po meds due to nausea and vomiting - multiple admits for HTN urgency in past few months (responsive to nicardipine drip each time), last was earlier this month and went home 2 days ago. - d/c meds at that time Labetalol 300 mg PO BID, Clonidine Patch 0.3, Hydralazine HCl 50 mg PO BID, Nifedipine XL 60 mg PO BID, Spironolactone 50 mg PO BID, Furosemide 80 mg PO DAILY - rec resume prior po meds per recent d/c list BUT ALSO RESUME PRIOR REGIMEN OF DOXAZOSIN 8MG BID (not included on d/c meds last time--notes do not specify specific intolerance or reason for stopping) - wean off labetalol gtt once po meds on board - if bp spikes can change to nifedipine gtt instead (worked well in past) - d/w'd hospitalist dr leslie - follows with HTN specialist (Dr. Vargas) at [place], as well as GI there to optimize GI sx's that interfere with med adherence chest pain, elevated troponin: - prior presentations of htn urgency accompanied by CP as well. - this is likely sx of severely elevated BP, as in the past it was - appears hemodynamically stable, non-toxic, and cp resolved promptly with tx of BP--clinically not suspicious for acute aorta pathology or ACS - CXR no widened mediastinum (image reviewed by me), cardiomediastinal silhouette no signif change vs prior - troponins flat (0.2 x 2), non-diagnostic range, stable vs mult prior admits. this is due to elevated filling pressures and LVH. - ecg unchanged vs priors, sec to LVH repolarization abnormality - observe closely hypokalemia-->causing prolonged QT: - sec to hyperaldosteronism. - has required up to 140 meq qd K repletion in past - QT improving chronic syst/diast(mixed) CHF: - hypertensive cardiomyopathy - appears euvolemic, cxr improved vs prior - continue home furosemide - no symptoms concerning for HF, appears euvolemic aorta aneurysm: -4.1 cm ascending aorta on 03/2017 CT scan -sec to uncontrolled HTN -bp control, including BB as doing -routine outpt aorta surveillance CKD: -creat running around high 4's-low 5's baseline here -stable here -continue lasix, renal f/u est'd time in data review, pt exam, and formulation of mgmt plan of potentially life-threatening medical problems = 35 min
[2018-01-01] MEDS ORDERED: POLYETHYLENE GLYCOL 3350 119 GM BTL PO ONE (10:10)
[2018-01-01] MEDS ORDERED: SENNOSIDES 8.6MG TABLET (FP) PO PRN ×2 (10:10→22:00)
--- NOTE | 2018-01-01 10:59 | PN ---
Teaching Attending Note Name of Resident: Damaris Piña ATTENDING PHYSICIAN STATEMENT I saw and evaluated the patient. I reviewed the resident's note and discussed the case with the resident. I agree with the resident's findings and plan as documented. SUBJECTIVE: Pt seen and examined in the ICU. Off labetalol gtt. Headache, nausea resolved. Some mild left sided chest pain. OBJECTIVE: Vital Signs Period Temp Pulse Resp BP Sys/Li Pulse Ox Last 24 Hr 98 F-98.4 F 56-66 14-18 110-168/70-118 97-99 Intake & Output 12/29/17 12/30/17 12/31/17 01/01/18 23:59 23:59 23:59 23:59 Intake Total 800 Output Total 1000 400 Balance -200 -400 Weight 69.853 kg Gen: NAD at rest Heart: RRR Lung: decreased breath sounds at the bases Abd: soft, nontender Ext: no edema CBC, BMP 01/01/18 05:15 01/01/18 05:15 Active Medications Atorvastatin Calcium (Lipitor -) 40 mg PO HS [facility] Last Admin: 12/31/17 22:51 Dose: 40 mg Chlorhexidine Gluconate (Hibiclens For Decolonization -) 1 applic TP HS [facility] Last Admin: 12/31/17 23:06 Dose: 1 applic Clonidine HCl (Catapres Tts Patch -) 0.3 mg TD Stevens@1000 [facility] Last Admin: 12/31/17 12:20 Dose: 0.3 mg Doxazosin Mesylate (Cardura -) 8 mg PO BID [facility] Last Admin: 01/01/18 09:19 Dose: 8 mg Heparin Sodium (Porcine) (Heparin -) 5,000 unit SQ BID [facility] Last Admin: 01/01/18 09:21 Dose: Not Given Hydralazine HCl (Apresoline -) 50 mg PO BID [facility] Last Admin: 01/01/18 09:20 Dose: 50 mg Labetalol HCl (Normodyne -) 300 mg PO BID [facility] Last Admin: 01/01/18 09:18 Dose: 300 mg Morphine Sulfate (Morphine Sulfate) 2 mg IVPUSH Q4H PRN PRN Reason: PAIN LEVEL 6-10 Last Admin: 12/31/17 22:52 Dose: 2 mg Mupirocin (Bactroban Ointment (For Decolonization) -) 1 applic NS BID [facility] Stop: 01/05/18 09:59 Last Admin: 01/01/18 09:27 Dose: 1 applic Nifedipine (Procardia Xl -) 60 mg PO BID [facility] Last Admin: 01/01/18 09:18 Dose: 60 mg Potassium Chloride (K-Dur -) 40 meq PO DAILY [facility] Last Admin: 01/01/18 09:18 Dose: 40 meq Senna (Senna -) 1 tab PO HS PRN PRN Reason: CONSTIPATION Spironolactone (Aldactone -) 50 mg PO BID [facility] Last Admin: 01/01/18 09:19 Dose: 50 mg ASSESSMENT AND PLAN: Hypertensive Urgency +Troponins likely Demand Ischemia LV Diastolic/Systolic Dysfunction Aortic Aneurysm Hyperaldosteronism CKD Anemia - BP control with PO meds - monitor off labetalol gtt - PO as tolerated - DVT prophylaxis - can monitor on floor
--- NOTE | 2018-01-01 13:52 | PN ---
Physical Exam: SUBJECTIVE: Patient seen and examined at bedside this morning. Denies acute complaints overnight. States chest pain is improving. Denies palpitations. Denies headaches, dizziness, changes in vision, tinnitus, fevers, chills, shortness of breath, cough, shortness of breath, abdominal pain, nausea, vomiting, diarrhea. OBJECTIVE: Vital Signs Period Temp Pulse Resp BP Sys/Li Pulse Ox Last 24 Hr 98 F-98.4 F 58-68 14-19 110-168/70-118 97-99 GENERAL: Awake, alert, and fully oriented, in no acute distress. HEAD: Normocephalic, atraumatic EYES: PERRLA, extraocular movements intact, sclera anicteric. ENT: Oropharynx clear without exudates, moist mucous membranes. NECK: Supple without lymphadenopathy. LUNGS: Breath sounds equal, clear to auscultation bilaterally, no wheezes, no crackles, no accessory muscle use. HEART: Regular rate and rhythm, S1, S2 without murmur. ABDOMEN: Soft, nontender, nondistended, hypoactive bowel sounds, no guarding, no rebound. EXTREMITIES: 2+ dorsalis pedis and radial pulses. Warm, well-perfused, no edema in B/L lower extremities. NEUROLOGICAL: Cranial nerves II through XII grossly intact. Normal speech. Strength 5/5 B/L upper and lower extremities. PSYCH: Appropriate mood and affect upon my encounter today. SKIN: Warm, dry, no rashes or lesions noted. Laboratory Results - last 24 hr 12/31/17 12/31/17 01/01/18 05:15 16:10 05:15 WBC 4.1 RBC 2.42 L Hgb 7.6 L Hct 22.5 L MCV 92.9 MCH 31.2 MCHC 33.6 RDW 16.0 H Plt Count 195 MPV 7.9 Sodium Potassium Chloride Carbon Dioxide Anion Gap BUN Creatinine Creat Clearance w eGFR Random Glucose Calcium Phosphorus Magnesium Total Bilirubin AST ALT Alkaline Phosphatase Creatine Kinase Index 1.2 CK-MB (CK-2) 2.04 Total Protein Albumin Opiates Screen Positive Methadone Screen Negative Barbiturate Screen Negative Phencyclidine Screen Negative Ur Amphetamines Screen Negative MDMA (Ecstasy) Screen Positive Benzodiazepines Screen Negative Cocaine Screen Negative U Marijuana (THC) Screen Negative 01/01/18 05:15 WBC RBC Hgb Hct MCV MCH MCHC RDW Plt Count MPV Sodium 137 Potassium 4.1 Chloride 101 Carbon Dioxide 25 Anion Gap 11 BUN 63 H Creatinine 5.3 H Creat Clearance w eGFR 9.01 Random Glucose 95 Calcium 8.7 Phosphorus 4.7 Magnesium 2.1 Total Bilirubin 0.6 AST 31 ALT 73 H Alkaline Phosphatase 74 Creatine Kinase Index CK-MB (CK-2) Total Protein 5.2 L Albumin 2.4 L Opiates Screen Methadone Screen Barbiturate Screen Phencyclidine Screen Ur Amphetamines Screen MDMA (Ecstasy) Screen Benzodiazepines Screen Cocaine Screen U Marijuana (THC) Screen Active Medications Generic Name Dose Route Start Last Admin Trade Name Freq PRN Reason Stop Dose Admin Atorvastatin Calcium 40 mg 12/31/17 22:00 12/31/17 22:51 Lipitor - PO 40 mg HS BRET Administration Chlorhexidine Gluconate 1 applic 12/31/17 22:00 12/31/17 23:06 Hibiclens For Decolonization - TP 1 applic HS BRET Administration Clonidine HCl 0.3 mg 12/31/17 10:30 12/31/17 12:20 Catapres Tts Patch - TD 0.3 mg Stevens@1000 BRET Administration Doxazosin Mesylate 8 mg 01/01/18 10:00 01/01/18 09:19 Cardura - PO 8 mg BID BRET Administration Heparin Sodium (Porcine) 5,000 unit 12/31/17 10:00 01/01/18 09:21 Heparin - SQ Not Given BID BRET Hydralazine HCl 50 mg 12/31/17 22:00 01/01/18 09:20 Apresoline - PO 50 mg BID BRET Administration Labetalol HCl 300 mg 12/31/17 22:00 01/01/18 09:18 Normodyne - PO 300 mg BID BRET Administration Morphine Sulfate 2 mg 12/31/17 06:57 12/31/17 22:52 Morphine Sulfate IVPUSH 2 mg Q4H PRN Administration PAIN LEVEL 6-10 Mupirocin 1 applic 12/31/17 10:00 01/01/18 09:27 Bactroban Ointment (For Decolonization) - NS 01/05/18 09:59 1 applic BID BRET Administration Nifedipine 60 mg 12/31/17 10:00 01/01/18 09:18 Procardia Xl - PO 60 mg BID BRET Administration Potassium Chloride 40 meq 01/01/18 10:00 01/01/18 09:18 K-Dur - PO 40 meq DAILY BRET Administration Senna 1 tab 01/01/18 10:10 Senna - PO HS PRN CONSTIPATION Spironolactone 50 mg 12/31/17 10:00 01/01/18 09:19 Aldactone - PO 50 mg BID BRET Administration ASSESSMENT/PLAN: Patient is a 37 year old female with history of Conn syndrome, chronic kidney disease, uncontrolled hypertension partly due to medication noncompliance presented with headache and abdominal pain. Re-admitted after prior discharge last week for hypertensive emergency. Hypertensive Emergency -Patient tapered off Labetalol drip. -Hydralazine 50mg PO BID. -Labetalol 300mg PO BID -Clonidine patch 0.3mg transdermal weekly -Nifedipine 60mg PO BID -Doxazosin 8mh PO BID -Continue monitoring BP closely. Conn syndrome -Spironolactone 50mg PO BID -Patient will continue with outpatient follow up. Aortic Anseurysm -Likely secondary to hypertension -As per CT 4.1cm -Cardiology consult appreciated. Troponin Elevation -Troponins trending down 0.28 -> 0.27 -Likely secondary to demand ischemia due to elevated BP -Continue cardiac monitoring -Cardiology consult appreciated: Will reinstate medications at discharge in addition to Doxazosin. Constipation -CT abdomen/ pelvis (from prior admission) showed free pelvic fluid without acute pathology within abdomen. -Patient states last bowel movement was last week (does not recall specific date ). -Miralax 17grams PO -Senna 1 tablet HS PRN Hypokalemia -Potassium today is 4.1 -K-dur 40mg PO daily -Will follow CMP Chronic Kidney Disease -Likely secondary to uncontrolled hypertension -Nephrology consult (Dr. Sunshine) appreciated: Will continue Spironolactone, monitor BP, and renal function. Anemia -MCV 92.9, 7.6 Hct, Hb 22.5 -Likely secondary to chronic kidney disease. -No transfusion at this time. Will follow Hb/ Hct. Hyperlipidemia -Lipitor 40mg QD FEN -No IV fluids -Will follow CMP -Sodium controlled diet Prophylaxis -Heparin 5000u subq TID Disposition: Transition IV to PO medications. Will transfer to medical surgical floor for monitoring Visit type - Emergency Visit Emergency Visit: Yes ED Registration Date: 12/31/17 Care time: The patient presented to the Emergency Department on the above date and was hospitalized for further evaluation of their emergent condition. - New Patient This patient is new to me today: Yes Date on this admission: 01/01/18 - Critical Care Critical Care patient: Yes Total Critical Care Time (in minutes): 35 Critical Care Statement: The care of this patient involved high complexity decision making to prevent further life threatening deterioration of the patient 's condition and/or to evaluate & treat vital organ system(s) failure or risk of failure. - Discharge Referral Referred to [facility] No
--- NOTE | 2018-01-01 15:53 | PN ---
Progress Note, Physician History of Present Illness: Pt seen and examined at bedside. She is awake and alert. She insisted that I speak to someone from the disability department on the phone in her room. I explained that she does have advanced CKD and should prepare for HD. - Current Medication List Current Medications: Active Medications Atorvastatin Calcium (Lipitor -) 40 mg PO HS BRET Clonidine HCl (Catapres Tts Patch -) 0.3 mg TD Stevens@1000 BRET Doxazosin Mesylate (Cardura -) 8 mg PO BID BRET Heparin Sodium (Porcine) (Heparin -) 5,000 unit SQ BID BRET Hydralazine HCl (Apresoline -) 50 mg PO BID BRET Labetalol HCl (Normodyne -) 300 mg PO BID BRET Morphine Sulfate (Morphine Sulfate) 2 mg IVPUSH Q4H PRN PRN Reason: PAIN LEVEL 6-10 Nifedipine (Procardia Xl -) 60 mg PO BID BRET Potassium Chloride (K-Dur -) 40 meq PO DAILY BRET Senna (Senna -) 1 tab PO HS PRN PRN Reason: CONSTIPATION Spironolactone (Aldactone -) 50 mg PO BID BRET - Objective Vital Signs: Vital Signs Temperature 98.4 F 01/01/18 15:20 Pulse Rate 62 01/01/18 15:20 Respiratory Rate 18 01/01/18 15:20 Blood Pressure 125/82 01/01/18 15:20 O2 Sat by Pulse Oximetry (%) 99 01/01/18 08:00 Constitutional: Yes: Calm Eyes: Yes: Conjunctiva Clear HENT: Yes: Atraumatic Neck: Yes: Supple Cardiovascular: Yes: S1, S2 Respiratory: Yes: CTA Bilaterally Gastrointestinal: Yes: Soft Genitourinary: Yes: WNL Musculoskeletal: Yes: WNL Edema: Yes Edema: LLE: Trace, RLE: Trace Integumentary: Yes: Tattoos Neurological: Yes: Oriented Psychiatric: Yes: Oriented Labs: CBC, BMP 01/01/18 05:15 01/01/18 05:15 INR, PTT INR 1.18 (0.83-1.09) H 12/31/17 05:15 Problem List - Problems (1) Hypertensive emergency Code(s): I16.1 - HYPERTENSIVE EMERGENCY (2) Acute on chronic diastolic CHF (congestive heart failure) Code(s): I50.33 - ACUTE ON CHRONIC DIASTOLIC (CONGESTIVE) HEART FAILURE (3) Chest pain Code(s): R07.9 - CHEST PAIN, UNSPECIFIED Qualifiers: Chest pain type: unspecified Qualified Code(s): R07.9 - Chest pain, unspecified (4) CKD (chronic kidney disease) Code(s): N18.9 - CHRONIC KIDNEY DISEASE, UNSPECIFIED Qualifiers: Chronic kidney disease stage: stage 4 (severe) Qualified Code(s): N18.4 - Chronic kidney disease, stage 4 (severe) Assessment/Plan Current Medications Generic Name Dose Route Start Last Admin Trade Name Freq PRN Reason Stop Dose Admin Atorvastatin Calcium 40 mg 01/01/18 22:00 Lipitor - PO HS BRET Clonidine HCl 0.3 mg 01/07/18 10:00 Catapres Tts Patch - TD Stevens@1000 BRET Doxazosin Mesylate 8 mg 01/01/18 22:00 Cardura - PO BID BRET Heparin Sodium (Porcine) 5,000 unit 01/01/18 22:00 Heparin - SQ BID BRET Hydralazine HCl 50 mg 01/01/18 22:00 Apresoline - PO BID BRET Labetalol HCl 300 mg 01/01/18 22:00 Normodyne - PO BID BRET Morphine Sulfate 2 mg 01/01/18 14:08 Morphine Sulfate IVPUSH Q4H PRN PAIN LEVEL 6-10 Nifedipine 60 mg 01/01/18 22:00 Procardia Xl - PO BID BRET Potassium Chloride 40 meq 01/02/18 10:00 K-Dur - PO DAILY BRET Senna 1 tab 01/01/18 22:00 Senna - PO HS PRN CONSTIPATION Spironolactone 50 mg 01/01/18 22:00 Aldactone - PO BID [facility] Laboratory Tests 01/01/18 05:15 Creat Clearance w eGFR 9.01 Laboratory Tests 12/31/17 16:10 Opiates Screen Positive MDMA (Ecstasy) Screen Positive Impression 1. Conn/hyperaldo 2. htn emergency 3. CKD 4. MADISON 5. HTN poorly controlled 6. non compliance 7. vomiting 8. hypokalemia Plan - blood pressure improvd - etiology of uncontrolled HTN is likely non compliance - pt till discuss kidney transplant with her twin brother, she also agrees to speak to her tree inspector and possibly have a fistula placed. She insisted I relay these thing to the disability department personel on the phone while in her room - pt off of labpaulinolol drip - urine drug screen reviewed - monitor bp - discussed with ICU team Dr Sunshine
[2018-01-01] MEDS: MORPHINE SULFATE 2 MG/ML VIAL IVPUSH PRN ×2 (16:14→20:46)
--- NOTE | 2018-01-01 18:21 | PN ---
Teaching Attending Note Name of Resident: Juan Márquez ATTENDING PHYSICIAN STATEMENT I saw and evaluated the patient. I reviewed the resident's note and discussed the case with the resident. I agree with the resident's findings and plan as documented. SUBJECTIVE: Patient is feeling better with no acute distress. Blood pressure is better controlled. OBJECTIVE: Vital Signs Temperature 98.5 F 01/01/18 18:00 Pulse Rate 64 01/01/18 18:00 Respiratory Rate 20 01/01/18 18:00 Blood Pressure 146/81 01/01/18 18:00 O2 Sat by Pulse Oximetry (%) 100 01/01/18 15:56 HEENT: No Jaundice, eye redness or discharge, PERRLA, EOMI. Normocephalic, atraumatic. No exudate or erythema. Neck: Supple, nontender. No JVD Chest: GAE BL, Clear to auscultation and percussion. Heart: S1S2 positive, RRR, ,no rub or murmur Abdomen: Not distended, soft, nontender and no HSM. No rebound or guarding. Normoactive bowel sounds. Ext: Peripheral pulses intact. Leg edema. Skin: Warm and dry. No petechiae. Neuro: Alert. Oriented x3. CN 2-12 grossly intact. CBCD WBC 4.1 K/mm3 (4.0-10.0) 01/01/18 05:15 RBC 2.42 M/mm3 (3.60-5.2) L 01/01/18 05:15 Hgb 7.6 GM/dL (10.7-15.3) L 01/01/18 05:15 Hct 22.5 % (32.4-45.2) L 01/01/18 05:15 MCV 92.9 fl (80-96) 01/01/18 05:15 MCHC 33.6 g/dl (32.0-36.0) 01/01/18 05:15 RDW 16.0 % (11.6-15.6) H 01/01/18 05:15 Plt Count 195 K/MM3 (134-434) 01/01/18 05:15 MPV 7.9 fl (7.5-11.1) 01/01/18 05:15 CMP Sodium 137 mmol/L (136-145) 01/01/18 05:15 Potassium 4.1 mmol/L (3.5-5.1) 01/01/18 05:15 Chloride 101 mmol/L (98-107) 01/01/18 05:15 Carbon Dioxide 25 mmol/L (21-32) 01/01/18 05:15 Anion Gap 11 MMOL/L (8-16) 01/01/18 05:15 BUN 63 mg/dL (7-18) H 01/01/18 05:15 Creatinine 5.3 mg/dL (0.55-1.3) H 01/01/18 05:15 Creat Clearance w eGFR 9.01 (>60) 01/01/18 05:15 Random Glucose 95 mg/dL (74-106) 01/01/18 05:15 Calcium 8.7 mg/dL (8.5-10.1) 01/01/18 05:15 Total Bilirubin 0.6 mg/dL (0.2-1.0) 01/01/18 05:15 AST 31 U/L (15-37) 01/01/18 05:15 ALT 73 U/L (13-61) H 01/01/18 05:15 Alkaline Phosphatase 74 U/L (45-117) 01/01/18 05:15 Total Protein 5.2 g/dl (6.4-8.2) L 01/01/18 05:15 Albumin 2.4 g/dl (3.4-5.0) L 01/01/18 05:15 CARDIAC ENZYMES Creatine Kinase 157 IU/L (26-192) 12/31/17 05:15 Troponin I 0.27 ng/ml (0.00-0.05) H* 12/31/17 05:15 Current Medications Generic Name Dose Route Start Last Admin Trade Name Freq PRN Reason Stop Dose Admin Atorvastatin Calcium 40 mg 01/01/18 22:00 Lipitor - PO HS BRET Clonidine HCl 0.3 mg 01/07/18 10:00 Catapres Tts Patch - TD Stevens@1000 BRET Doxazosin Mesylate 8 mg 01/01/18 22:00 Cardura - PO BID BRET Heparin Sodium (Porcine) 5,000 unit 01/01/18 22:00 Heparin - SQ BID BRET Hydralazine HCl 50 mg 01/01/18 22:00 Apresoline - PO BID BRET Labetalol HCl 300 mg 01/01/18 22:00 Normodyne - PO BID BRET Morphine Sulfate 2 mg 01/01/18 14:08 01/01/18 16:14 Morphine Sulfate IVPUSH 2 mg Q4H PRN Administration PAIN LEVEL 6-10 Nifedipine 60 mg 01/01/18 22:00 Procardia Xl - PO BID [facility] Potassium Chloride 40 meq 01/02/18 10:00 K-Dur - PO DAILY BRET Senna 1 tab 01/01/18 22:00 Senna - PO HS PRN CONSTIPATION Spironolactone 50 mg 01/01/18 22:00 Aldactone - PO BID [facility] Home Medications Medication Instructions Recorded Atorvastatin Ca [Lipitor] 40 mg PO HS 30 Days #30 tablet 12/29/17 Clonidine Patch [Catapres Tts 0.3 mg TD WEEKLY 14 Days #2 patch 12/29/17 Patch -] Hydralazine HCl 50 mg PO BID 30 Days #60 tablet 12/29/17 Labetalol HCl [Normodyne -] 300 mg PO BID 30 Days #60 tablet 12/29/17 Nifedipine [Procardia Xl] 60 mg PO BID 30 Days #60 tab 12/29/17 Spironolactone [Aldactone -] 50 mg PO BID 30 Days #60 tab 12/29/17 CT/ABDOMEN PELVIS CT W/O CONTR HISTORY PROVIDED: Diffuse abdominal pain TECHNIQUE: Sequential axial images were obtained from the domes of the diaphragm through the symphysis pubis. The study is markedly limited without the use of any contrast material, as well as the patient's poor cooperation. Evaluation of the lung bases demonstrates a moderately enlarged heart with a small pericardial effusion. There are areas of groundglass opacification throughout the lower lobes suspicious for acute congestion. Clinical correlation is advised. Small pleural effusions are also present. The liver is enlarged measuring 23.5 cm in craniocaudad dimension. There are several hypodensities within the liver that most likely represent small cysts. Some of these are too small to accurately characterize. The spleen is not enlarged. The pancreas, adrenal glands and kidneys demonstrate no significant abnormalities. There is a 2 cm right renal cyst. The gallbladder is clear. There is no evidence of intra-abdominal or retroperitoneal lymphadenopathy or fluid collections. There is no evidence of pneumoperitoneum, bowel obstruction or intra-abdominal abscess. There is no CT evidence of acute appendicitis or diverticulitis. Examination of the pelvis demonstrates free fluid within the cul -de-sac. No evidence of pelvic masses, fluid collections or lymphadenopathy. The uterus has been removed. There are mild edematous changes throughout the subcutaneous tissues of the abdomen and pelvis. This may be on the basis of cardiac decompensation. Clinical correlation is advised. There is no evidence of acute bony abnormalities. Since a prior study of 10/21/2017, there is been no significant change. IMPRESSION: 1. Cardiomegaly, small pericardial effusion, mild congestion and small bilateral pleural effusions. 2. Hepatomegaly with scattered hepatic cysts. 3. Subcutaneous edema. 4. Free pelvic fluid, no acute pathology within the abdomen or pelvis. No significant change since 10/21/2017. Please see above discussion. Reported By: Ubaldo Palmer MD 12/27/[address] scan of the brain without intravenous contrast. Compared to prior CT scan of the head dated 10/14/2017 The ventricles and basal cisterns appear unremarkable. No mass lesion, gross acute infarct or intracranial hemorrhage are identified. Visualized paranasal sinuses and mastoid air cells are well-aerated. The calvarium is intact. Note is made of mild asymmetric soft tissue swelling of the scalp on the left side when compared to the right Impression: No significant interval change. No evidence of a focal intracranial lesion or hemorrhage seen. Mild soft tissue swelling of the scalp on the left side when compared to the right. Correlate clinically. A preliminary report was forwarded by the [facility] service, [employer]. Reported By: Alex Conklin MD 12/27/17 0972 ASSESSMENT AND PLAN: This is a 37 year old female with a significant PMHx of uncontrolled HTN due to noncompliance , Hx of Aortic aneurysm, hyperaldosteronism, CKD who presented to the hospital complaining of having chest pain with elevated BP of 214/152. #Hypertensive emergency:most likely due to non compliance with her medications, previously patient was having Nausea and vomiting , got readmitted for elevated blood pressure of 221/153 . s/p Labetolol drip , switched her to all her oral medications. Labetalol 300 mg PO BID, Clonidine Patch 0.3, Hydralazine HCl 50 mg PO BID, Nifedipine XL 60 mg PO BID, Spironolactone 50 mg PO BID, Furosemide 80 mg PO daily, and doxazosin 8mg bid, Continue all her meds for now and upon discharge. Patient follows with HTN specialist (Dr. Dunham) at [place]. #Chest pain with elevated Troponin: Most likely due to severely elevated blood pressure due to demand Ischemia. Cardio on the case . as per cardio: no change in EKG. will continue to observe closely # Hx of CHF with Hypertensive CM on Lasix continue # Hx of Ascending Aortic aneurysm (4.1cm) on CT 04/12 due to Uncontrolled HTN , need tight BP control , continue outpt aorta surveillance #Conn's Syndrome : replete potassium , patient has prolonged QTc, keep Potassium above 4.0, Hypokalemia due to Conn's syndrome. continue to trend EKG. # Qtc prolongation: Avoid meds.that prolong QTc (Zofran) #MADISON on CKD: baseline 4.1-4.5, today 4.[address] Sunshine consulted. Monitor #Anemia: Hgb 9.0 in the setting of chronic Kidney disease ,iron studies ordered ,FOBT ordered DVT PX: SCDS, Heparin sq
[2018-01-01] MEDS ORDERED: HEPARIN NA (PORCINE) 5,000 UNITS/ML 1ML VIAL SQ SCH (22:00)
[2018-01-01] MEDS ORDERED: ATORVASTATIN CA 40 MG TABLET (FP) PO SCH (22:00)
[2018-01-01] MEDS ORDERED: NIFEdipine E.R 60 MG TABLET (UD) PO SCH (22:00)
[2018-01-01] MEDS ORDERED: SPIRONOLACTONE 25 MG TABLET (FP) PO SCH (22:00)
[2018-01-01] MEDS ORDERED: hydrALAZINE HCL 50 MG TABLET (FP) PO SCH (22:00)
[2018-01-01] MEDS ORDERED: LABETALOL HCL 100 MG TABLET (FP) PO SCH (22:00)
[2018-01-01] MEDS ORDERED: oxyCODONE HCL 5 MG TABLET PO ONE (22:45)
[2018-01-01] MEDS ORDERED: ACETAMINOPHEN 325 MG TABLET (FP) PO ONE (22:45)
[2018-01-02] MEDS: MORPHINE SULFATE 2 MG/ML VIAL IVPUSH PRN ×2 (00:49→06:31)
[2018-01-02 02:12] VITALS: TEMP 98.2
[2018-01-02 07:21] VITALS: BP 124/84; PULSE 63
[2018-01-02 07:45] LABS: HEMATOCRIT 22.5 % (32.4-45.2); HEMOGLOBIN 7.4 GM/dL (10.7-15.3); MCH 30.5 pg (25.7-33.7); MCHC 32.9 g/dl (32.0-36.0); MEAN CELL VOLUME 92.8 fl (80-96); MEAN PLT VOLUME 7.8 fl (7.5-11.1); PLATELET COUNT 183 K/MM3 (134-434); RBC 2.43 M/mm3 (3.60-5.2); RDW 15.7 % (11.6-15.6); WHITE BLOOD COUNT 4.5 K/mm3 (4.0-10.0)
[2018-01-02 08:10] LABS: CHLORIDE 102 mmol/L (98-107); POTASSIUM 4.1 mmol/L (3.5-5.1); SODIUM 137 mmol/L (136-145)
[2018-01-02 08:18] LABS: ALBUMIN 2.4 g/dl (3.4-5.0); ALK PHOS 89 U/L (45-117); ANION GAP 10 MMOL/L (8-16); BILIRUBIN,TOTAL 0.4 mg/dL (0.2-1); BLOOD UREA NITROGEN 66 mg/dL (7-18); CALCIUM 8.3 mg/dL (8.5-10.1); CO2 25 mmol/L (21-32); CREATININE 5.6 mg/dL (0.55-1.3); GLUCOSE,RANDOM 112 mg/dL (74-106); SGOT/AST 32 U/L (15-37); SGPT/ALT 71 U/L (13-61); TOT PROT 5.3 g/dl (6.4-8.2)
--- NOTE | 2018-01-02 08:19 | PN ---
Teaching Attending Note Name of Resident: Juan Márquez ATTENDING PHYSICIAN STATEMENT I saw and evaluated the patient. I reviewed the resident's note and discussed the case with the resident. I agree with the resident's findings and plan as documented. SUBJECTIVE: Patient signed against medical advice before was seen by me. OBJECTIVE: Vital Signs Temperature 98.2 F 01/02/18 06:00 Pulse Rate 63 01/02/18 06:00 Respiratory Rate 20 01/02/18 06:00 Blood Pressure 124/84 01/02/18 06:00 O2 Sat by Pulse Oximetry (%) 98 01/01/18 21:00 CBCD WBC 4.5 K/mm3 (4.0-10.0) 01/02/18 06:20 RBC 2.43 M/mm3 (3.60-5.2) L 01/02/18 06:20 Hgb 7.4 GM/dL (10.7-15.3) L 01/02/18 06:20 Hct 22.5 % (32.4-45.2) L 01/02/18 06:20 MCV 92.8 fl (80-96) 01/02/18 06:20 MCHC 32.9 g/dl (32.0-36.0) 01/02/18 06:20 RDW 15.7 % (11.6-15.6) H 01/02/18 06:20 Plt Count 183 K/MM3 (134-434) 01/02/18 06:20 MPV 7.8 fl (7.5-11.1) 01/02/18 06:20 CMP Sodium 137 mmol/L (136-145) 01/01/18 05:15 Potassium 4.1 mmol/L (3.5-5.1) 01/01/18 05:15 Chloride 101 mmol/L (98-107) 01/01/18 05:15 Carbon Dioxide 25 mmol/L (21-32) 01/01/18 05:15 Anion Gap 11 MMOL/L (8-16) 01/01/18 05:15 BUN 63 mg/dL (7-18) H 01/01/18 05:15 Creatinine 5.3 mg/dL (0.55-1.3) H 01/01/18 05:15 Creat Clearance w eGFR 9.01 (>60) 01/01/18 05:15 Random Glucose 95 mg/dL (74-106) 01/01/18 05:15 Calcium 8.7 mg/dL (8.5-10.1) 01/01/18 05:15 Total Bilirubin 0.6 mg/dL (0.2-1.0) 01/01/18 05:15 AST 31 U/L (15-37) 01/01/18 05:15 ALT 73 U/L (13-61) H 01/01/18 05:15 Alkaline Phosphatase 74 U/L (45-117) 01/01/18 05:15 Total Protein 5.2 g/dl (6.4-8.2) L 01/01/18 05:15 Albumin 2.4 g/dl (3.4-5.0) L 01/01/18 05:15 CARDIAC ENZYMES Creatine Kinase 157 IU/L (26-192) 12/31/17 05:15 Troponin I 0.27 ng/ml (0.00-0.05) H* 12/31/17 05:15 Current Medications Generic Name Dose Route Start Last Admin Trade Name Freq PRN Reason Stop Dose Admin Atorvastatin Calcium 40 mg 01/01/18 22:00 01/01/18 23:00 Lipitor - PO 40 mg HS BRET Administration Clonidine HCl 0.3 mg 01/07/18 10:00 Catapres Tts Patch - TD Stevens@1000 BRET Doxazosin Mesylate 8 mg 01/01/18 22:00 01/01/18 23:00 Cardura - PO 8 mg BID BRET Administration Heparin Sodium (Porcine) 5,000 unit 01/01/18 22:00 01/01/18 23:01 Heparin - SQ Not Given BID BRET Hydralazine HCl 50 mg 01/01/18 22:00 01/01/18 23:00 Apresoline - PO 50 mg BID BRET Administration Labetalol HCl 300 mg 01/01/18 22:00 01/01/18 23:00 Normodyne - PO 300 mg BID BRET Administration Morphine Sulfate 2 mg 01/01/18 14:08 01/02/18 06:31 Morphine Sulfate IVPUSH 2 mg Q4H PRN Administration PAIN LEVEL 6-10 Nifedipine 60 mg 01/01/18 22:00 01/01/18 23:00 Procardia Xl - PO 60 mg BID BRET Administration Potassium Chloride 40 meq 01/02/18 10:00 K-Dur - PO DAILY BRET Senna 1 tab 01/01/18 22:00 Senna - PO HS PRN CONSTIPATION Spironolactone 50 mg 01/01/18 22:00 01/01/18 23:01 Aldactone - PO 50 mg BID [facility] Administration Home Medications Medication Instructions Recorded Atorvastatin Ca [Lipitor] 40 mg PO HS 30 Days #30 tablet 12/29/17 Clonidine Patch [Catapres Tts 0.3 mg TD WEEKLY 14 Days #2 patch 12/29/17 Patch -] Hydralazine HCl 50 mg PO BID 30 Days #60 tablet 12/29/17 Labetalol HCl [Normodyne -] 300 mg PO BID 30 Days #60 tablet 12/29/17 Nifedipine [Procardia Xl] 60 mg PO BID 30 Days #60 tab 12/29/17 Spironolactone [Aldactone -] 50 mg PO BID 30 Days #60 tab 12/29/17 patient signed against medical advice prior to examining her. ASSESSMENT AND PLAN: This is a 37 year old female with a significant PMHx of uncontrolled HTN due to noncompliance , Hx of Aortic aneurysm, hyperaldosteronism, CKD who presented to the hospital complaining of having chest pain with elevated BP of 214/152. #Hypertensive emergency:most likely due to non compliance with her medications, previously patient was having Nausea and vomiting , got readmitted for elevated blood pressure of 221/153 . s/p Labetolol drip , switched her to all her oral medications. Labetalol 300 mg PO BID, Clonidine Patch 0.3, Hydralazine HCl 50 mg PO BID, Nifedipine XL 60 mg PO BID, Spironolactone 50 mg PO BID, Furosemide 80 mg PO daily, and doxazosin 8mg bid, Continue all her meds for now and upon discharge. Patient follows with HTN specialist (Dr. Dunham) at [place]. Patient was suggested to continue all her meds.at home and folllow up with her MDs. #Chest pain with elevated Troponin: Most likely due to severely elevated blood pressure due to demand Ischemia. Cardio on the case . as per cardio: no change in EKG. will continue to observe closely # hx of CHF with Hypertensive CM on Lasix continue # Hx of Ascending Aortic aneurysm (4.1cm) on CT 04/12 due to Uncontrolled HTN , need tight BP control , continue outpt aorta surveillance #Conn's Syndrome : replete potassium , patient has prolonged QTc, keep Potassium above 4.0, Hypokalemia due to Conn's syndrome. continue to trend EKG. # Qtc prolongation: Avoid meds.that prolong QTc (Zofran) #MADISON on CKD: baseline 4.1-4.5, today 4.[address] Sunshine consulted. Monitor #Anemia: Hgb 9.0 in the setting of chronic Kidney disease ,iron studies ordered ,FOBT ordered
[2018-01-02] MEDS ORDERED: POTASSIUM CHLORIDE TABS 20 MEQ TABLET.ER (FP) PO SCH (10:00)
--- NOTE | 2018-01-02 14:36 | DS ---
Physical Exam: SUBJECTIVE: Patient seen and examined at bedside. She denies acute complaints today. Denies headache, change in vision, dizziness, fevers, chills, shortness of breath, cough, chest pain, palpitations, abdominal pain, nausea, vomiting, diarrhea. OBJECTIVE: Vital Signs Period Temp Pulse Resp BP Sys/Li Pulse Ox Last 24 Hr 98.2 F-98.5 F 62-68 18-20 114-150/74-96 98-100 PHYSICAL EXAM GENERAL: Awake, alert, and fully oriented, in no acute distress. HEAD: Normocephalic, atraumatic EYES: PERRLA, extraocular movements intact, sclera anicteric. ENT: Oropharynx clear without exudates, moist mucous membranes. NECK: Supple without lymphadenopathy. LUNGS: Breath sounds equal, clear to auscultation bilaterally, no wheezes, no crackles, no accessory muscle use. HEART: Regular rate and rhythm, S1, S2 without murmur. ABDOMEN: Soft, nontender, nondistended, hypoactive bowel sounds, no guarding, no rebound. EXTREMITIES: 2+ dorsalis pedis and radial pulses. Warm, well-perfused, no edema in B/L lower extremities. NEUROLOGICAL: Cranial nerves II through XII grossly intact. Normal speech. Strength 5/5 B/L upper and lower extremities. PSYCH: Appropriate mood and affect upon my encounter today. SKIN: Warm, dry, no rashes or lesions noted. LABS Laboratory Results - last 24 hr 01/02/18 01/02/18 06:20 06:20 WBC 4.5 RBC 2.43 L Hgb 7.4 L Hct 22.5 L MCV 92.8 MCH 30.5 MCHC 32.9 RDW 15.7 H Plt Count 183 MPV 7.8 Sodium 137 Potassium 4.1 Chloride 102 Carbon Dioxide 25 Anion Gap 10 BUN 66 H Creatinine 5.6 H Creat Clearance w eGFR 8.45 Random Glucose 112 H Calcium 8.3 L Total Bilirubin 0.4 AST 32 ALT 71 H Alkaline Phosphatase 89 Total Protein 5.3 L Albumin 2.4 L HOSPITAL COURSE: Date of Admission:12/31/17 Date of Discharge: 01/02/18 Patient is a 37 year old female with history of Conn syndrome, chronic kidney disease, uncontrolled hypertension partly due to medication noncompliance presented with headache and abdominal pain. Re-admitted after prior discharge last week for hypertensive emergency. Upon admission, BP was 221/153. Troponins at 0.28 (repeat 0.24) Creatinine 4.9. EKG showed normal sinus rhythm at 84 beats per minute with prolonged QTc 491. Urine toxicology was positive for opiates and ecstacy. Discussed with patient who denies illicit drug use or alcohol use. Counselled patient regarding danger of drug use with her history of hypertension. Patient was started on Labetalol drip in ICU and, transitioned to PO Hydralazine , Cardura, Labetalol, Procardia, and Clonidie patch. Conn syndrome was managed with Spironolactone. She was transferred to medical-surgical floor. Nephrology consult discussed potential renal transplant and need for hemodialysis. Patient stated she wanted to leave the hospital, and signed out against medical advice. She was explained the risks of worsening condition, with worsening blood blood pressure, risk of heart attack, stroke, and . Informed patient to continue taking her blood pressure medications, and to follow up outpatient with primary care provider within one week. Advised patient to return to nearest emergency room if she experienced headache, sudden change in vision, dizziness, elevated blood pressure, chest pain, palpitations. Minutes to complete discharge: 35 Discharge Summary Reason For Visit: HYPERTENSIVE EMERGENCY Condition: Guarded - Instructions Diet, Activity, Other Instructions: Patient left the hospital against medical advice. You were admitted to the hospital for dangerously elevated blood pressure. You were treated with intravenous medications to lower the blood pressure, and were then changed to oral medications It is important to continue taking all of your blood pressure medications: Hydralazine 50mg twice a day Cardura 8 mg twice a day Labetalol 300mg twice a day Procardia 60mg twice a day Clonidine patch 0.3mg once a week. Please check your blood pressure throughout the day, and keep a log of your blood pressures. Continue Spironolactone 50mg twice a day to manage the Conn syndrome Continue Lipitor 40mg daily for the cholesterol. It is important that you follow up with your primary care physician within one week of discharge, as soon as possible. In addition, follow up with your blood pressure specialist at the [place]. It is important you follow up with your [employer] (heart doctor) within one week of discharge. It is important you follow up with the [employer] (kidney doctor) within one week of discharge. Please return to the nearest emergency department if you experience elevated blood pressure, chest pain, palpitations, dizziness, sudden change in vision, shortness of breath. Disposition: AGAINST MEDICAL ADVICE - Home Medications Comprehensive Discharge Medication List: Ambulatory Orders Atorvastatin Ca [Lipitor] 40 mg PO HS 30 Days #30 tablet 12/29/17 Clonidine Patch [Catapres Tts Patch -] 0.3 mg TD WEEKLY 14 Days #2 patch Hydralazine HCl 50 mg PO BID 30 Days #60 tablet 12/29/17 Labetalol HCl [Normodyne -] 300 mg PO BID 30 Days #60 tablet 12/29/17 Nifedipine [Procardia Xl] 60 mg PO BID 30 Days #60 tab 12/29/17 Spironolactone [Aldactone -] 50 mg PO BID 30 Days #60 tab 12/29/17 Doxazosin Mesylate [Cardura -] 8 mg PO BID tablet 01/02/18 Potassium Chloride [K-Dur -] 40 meq PO DAILY tablet.er 01/02/18 Sennosides [Senna -] 1 tab PO HS PRN tablet 01/02/18 This patient is new to me today: No Emergency Visit: Yes ED Registration Date: 12/31/17 Care time: The patient presented to the Emergency Department on the above date and was hospitalized for further evaluation of their emergent condition. Critical Care patient: No - Discharge Referral Referred to [facility] Med P.C.: No
[2018-01-05 00:08] LABS: HGB SOLUBILITY Positive (Negative); Hgb A 58.8 % (96.4-98.8); Hgb C 0 % (0.0); Hgb F 0 % (0.0-2.0); Hgb S 36.9 % (0.0)
[2018-01-07] MEDS ORDERED: cloNIDine-TTS 0.3 MG /24 HRS PATCH.TDWK TD SCH (10:00)
== END 2018-01-02 09:16 | disposition left against medical advice (07) | DRG 199 ==
LOC: JER 00:49 → JERBED 03:15 → JICU 05:35 → J5S 01-01 14:20
PROVIDERS: ADMIT Internal Medicine; ATTEND Internal Medicine
DX: I16.1 Hypertensive emergency (principal); I24.8 Other forms of acute ischemic heart disease; E26.01 Conn's syndrome; R07.89 Other chest pain; I13.0 Hypertensive heart and chronic kidney disease with heart failure and stage 1 through stage 4 chronic kidney disease, or unspecified chronic kidney disease; I50.33 Acute on chronic diastolic (congestive) heart failure; R11.2 Nausea with vomiting, unspecified; R51 Headache; R16.0 Hepatomegaly, not elsewhere classified; I71.2 Thoracic aortic aneurysm, without rupture; E88.09 Other disorders of plasma-protein metabolism, not elsewhere classified; E87.6 Hypokalemia; N18.5 Chronic kidney disease, stage 5; D63.8 Anemia in other chronic diseases classified elsewhere; I45.81 Long QT syndrome; N17.9 Acute kidney failure, unspecified; I25.10 Atherosclerotic heart disease of native coronary artery without angina pectoris; E26.9 Hyperaldosteronism, unspecified; K59.00 Constipation, unspecified; E78.5 Hyperlipidemia, unspecified; I31.3 Pericardial effusion (noninflammatory); K76.89 Other specified diseases of liver; Z91.14 Patient's other noncompliance with medication regimen
CPT/HCPCS: 36415; 71045-TC-FY; 71046-TC-FY; 80053; 80307; 81003; 81015; 82550; 82553; 83021; 83735; 84100; 84484; 84703; 85025; 85027; 85610; 85660; 93005; 93010; 99281-25; J0885; J1756

== ENCOUNTER 2018-03-18 21:28 | Observation (INO) | payer OTHER ==
[2018-03-18 21:37] VITALS: BMI 20.3
--- NOTE | 2018-03-18 22:38 | PDOC ---
History of Present Illness - General Chief Complaint: Cold Symptoms Stated Complaint: SICK Time Seen by Provider: 03/18/18 22:08 - History of Present Illness Initial Comments: 03/18/18 23:16 Patient is a 37 year old female with past medical history of Conn syndrome (2005 ), uncontrolled HTN, CKD and CHF, presented with nausea, vomiting, productive cough and chest pain that started 4 days ago. Five days prior, patient had AV graft placement at the [facility] for her to be started on Hemodialysis, where she was sent home with percocet for the pain. The next day, patient started feeling unwell, with multiple episodes of nausea and NBNB vomiting, unable to take anything orally except for ice chips. She was also having productive cough with whitish sputum. Denies any fever, chills, headaches, rhinorrhea. No medications taken. Patient reported pain radiating down her left arm to her hand, where the AV graft was done, and did not notice any change on redness or swelling. Patient also reported intermittent midsternal chest pain, worse when she coughs, that started yesterday. Denies shortness of breath, palpitations, diarrhea, constipation, urinary symptoms. Past History - Past Medical History Allergies/Adverse Reactions: Allergies Allergy/AdvReac Type Severity Reaction Status Date / Time No Known Allergies Allergy Verified 03/18/18 21:32 Home Medications: Ambulatory Orders Atorvastatin Ca [Lipitor] 40 mg PO HS 30 Days #30 tablet 12/29/17 Clonidine Patch [Catapres Tts Patch -] 0.3 mg TD WEEKLY 14 Days #2 patch Hydralazine HCl 50 mg PO BID 30 Days #60 tablet 12/29/17 Labetalol HCl [Normodyne -] 300 mg PO BID 30 Days #60 tablet 12/29/17 Nifedipine [Procardia Xl] 60 mg PO BID 30 Days #60 tab 12/29/17 Spironolactone [Aldactone -] 50 mg PO BID 30 Days #60 tab 12/29/17 Doxazosin Mesylate [Cardura -] 8 mg PO BID tablet 01/02/18 Potassium Chloride [K-Dur -] 40 meq PO DAILY tablet.er 01/02/18 Sennosides [Senna -] 1 tab PO HS PRN tablet 01/02/18 Anemia: No Cardiac Disorders: Yes COPD: No Disorders: Yes (CHRONIC RENAL DISEASE) HTN: Yes - Immunization History Immunization Up to Date: Yes - Suicide/Smoking/Psychosocial Hx Smoking History: Former smoker Have you smoked in the past 12 months: No If you are a former smoker, when did you quit?: 01/01 Information on smoking cessation initiated: No 'Breaking Loose' booklet given: 10/21/17 Hx Alcohol Use: No Drug/Substance Use Hx: No Substance Use Type: None Hx Substance Use Treatment: No Review of Systems - Review of Systems Constitutional: Yes: Weakness. No: Chills, Fever, Night Sweats HEENTM: No: Eye Pain, Blurred Vision, Ear Discharge, Nose Congestion, Difficulty Swallowing Respiratory: Yes: Cough. No: Orthopnea, Shortness of Breath Cardiac (ROS): Yes: Chest Pain. No: Lightheadedness, Palpitations ABD/GI: Yes: Nausea, Poor Fluid Intake, Vomiting. No: Abdominal Distended, Constipated, Diarrhea : No: Burning, Dysuria, Discharge Integumentary: Yes: Pallor. No: Rash, Sweating Neurological: No: Headache, Numbness, Tingling, Weakness *Physical Exam - Vital Signs Last Vital Signs Temp Pulse Resp BP Pulse Ox 99.3 F 86 18 202/133 H 98 03/18/18 21:34 03/18/18 21:34 03/18/18 21:34 03/18/18 21:34 03/18/18 21:34 - Physical Exam Comments: 03/18/18 23:16 General: awake, alert, oriented, looking tired, not in acute distress Head: No signs of acute trauma HEENT: PERRLA, EOMI, sclerae anicteric, pale palpebral conjunctivae, no nasal discharge, non-erythematous oropharynx, pale dry mucous membranes Neck: soft, supple, trachea midline Lung: clear to auscultation bilaterally Heart: regular rate and rhythm, normal S1/S2, no m,r,g, +palpable thrill along AV graft Abdomen: soft, nontender, nondistended, NABS Ext: +2 pulses, no peripheral edema LUE: +erythema, warmth and tenderness along AV graft line, sutures clean, dry and intact Moderate Sedation - Procedure Monitoring Vital Signs: Procedure Monitoring Vital Signs Temperature 99.3 F 03/18/18 21:34 Pulse Rate 86 03/18/18 21:34 Respiratory Rate 18 03/18/18 21:34 Blood Pressure 202/133 H 03/18/18 21:34 O2 Sat by Pulse Oximetry (%) 98 03/18/18 21:34 ED Treatment Course - LABORATORY CBC & Chemistry Diagram: 03/19/18 05:10 03/19/18 05:10 Medical Decision Making - Medical Decision Making 03/18/18 22:38 Patient is a 37 year old female with past medical history of Conn syndrome (2005 ), uncontrolled HTN, CKD and CHF, presented with nausea, vomiting, productive cough and chest pain. DDx include but not limited to [place] on CKD, ACS, HTN urgency CBC, CMP, coags Lactic acid, cardiac profile EKG, CXR Flu swab UA Type and screen 03/18/18 23:16 *DC/Admit/Observation/Transfer Diagnosis at time of Disposition: Elevated troponin, Aldosterone excess (Conn syndrome), Hypokalemia Nausea & vomiting Qualifiers: Vomiting type: unspecified Vomiting Intractability: unspecified Qualified Code( s): R11.2 - Nausea with vomiting, unspecified CKD (chronic kidney disease) Qualifiers: Chronic kidney disease stage: stage 4 (severe) Qualified Code(s): N18.4 - Chronic kidney disease, stage 4 (severe) - Discharge Dispostion Decision to Admit order: Yes - Referrals - Patient Instructions - Post Discharge Activity
[2018-03-18 22:47] LABS: BASO % 0.4 % (0-2.0); HEMATOCRIT 21.9 % (32.4-45.2); HEMOGLOBIN 7.5 GM/dL (10.7-15.3); LYMPH % 11.1 % (8-40); MCH 30.7 pg (25.7-33.7); MCHC 34.2 g/dl (32.0-36.0); MEAN CELL VOLUME 89.7 fl (80-96); MEAN PLT VOLUME 8.3 fl (7.5-11.1); MONO % 4.5 % (3.8-10.2); PLATELET COUNT 184 K/MM3 (134-434); RBC 2.44 M/mm3 (3.60-5.2); RDW 17.2 % (11.6-15.6); WHITE BLOOD COUNT 7.1 K/mm3 (4.0-10.0)
[2018-03-18 23:02] LABS: INR 1.2 (0.83-1.09); PROTHROMBIN TIME (PATIENT) 14.2 SEC (9.7-13.0)
--- NOTE | 2018-03-18 23:14 | PDOC ---
Attending Attestation - HPI HPI: This patient is a 37 year old female with PMHx of Conn syndrome, uncontrolled HTN, CKD, and CHF, h/o noncompliant with medications, presenting with 4 days of persistent vomiting, as well as cough and chest pain. She gets most of her treatment at the [facility] since she is a . Patient states that last Monday she had her AV graft placement in her left arm but has not started dialysis yet. On she began vomiting and unable to take her regular medication including her blood pressure meds. She is also complaining of chest pain (for 24hrs) and cough. Patient mentions that she has been chronically vomiting since July and has lost 52 lbs. since that time. Denies any recent abdominal pain. - Physicial Exam PE: GENERAL: Thin-appearing. AOx3 HEENT: Normocephalic, atraumatic. PERRL, EOM intact. CARDIOVASCULAR: Regular rate and rhythm. PULMONARY: Clear to auscultation bilaterally. ABDOMEN: Soft,flat non-distended, non-tender. EXTREMITIES: No pitting edema. Normal ROM in all four extremities. No gross deformities. SKIN: Tenderness around AV graft on left arm. She has thrill. Warm, dry. No rash NEUROLOGICAL: No focal neurological deficits. 03/18/18 23:18 03/19/18 00:06 <Nicole Bardales - Last Filed: 03/19/18 00:06> - Resident Resident Name: Jovita Cardenas - ED Attending Attestation I have performed the following: I have examined & evaluated the patient, The case was reviewed & discussed with the resident, I agree w/resident's findings & plan, Exceptions are as noted - Medical Decision Making 03/18/18 23:30 this 37 yo female p/w 4 days of persistent vomiting ,fatigue and chest pain PMH significant for CONN syndrome with hypokalemia,fatigue, NSTEMI, CKI Elevated BP 202/130 03/18/18 23:35 ekg is NSR @ 83 bpm, left atrial enlargement,prolonged QTc ( 502), nonspecific T wave abnormality -In reviewing her old labs her troponin have always been slightly elevated and boa's level of trop= 0.17 is baseline for here -troponin will be trended and repeated 03/19/18 02:33 will admit to tele pt 's able to take po medicine and took her BP meds and BP is trending down will admit tele to repeat trop <Lupe Johnson - Last Filed: 03/19/18 02:34>
[2018-03-18 23:21] LABS: ALK PHOS 89 U/L (45-117); ANION GAP 12 MMOL/L (8-16); BILIRUBIN,TOTAL 0.8 mg/dL (0.2-1); BLOOD UREA NITROGEN 65 mg/dL (7-18); CHLORIDE 100 mmol/L (98-107); CO2 26 mmol/L (21-32); GLUCOSE,RANDOM 97 mg/dL (74-106); POTASSIUM 3.2 mmol/L (3.5-5.1); SGOT/AST 209 U/L (15-37); SGPT/ALT 220 U/L (13-61); SODIUM 137 mmol/L (136-145); TOT PROT 6.1 g/dl (6.4-8.2)
[2018-03-18] MEDS ORDERED: LABETALOL HCL 5 MG/1 ML (100MG/20 ML VIAL) IVPUSH STA (23:21)
[2018-03-18] MEDS ORDERED: LABETALOL HCL 5 MG/1 ML (100MG/20 ML VIAL) ONE (23:30)
[2018-03-18 23:35] LABS: URINE APPEARANCE CLEAR; URINE BILIRUBIN NEGATIVE (<2.0 mg/dL); URINE COLOR YELLOW; URINE GLUCOSE (UA) NEGATIVE (NEGATIVE); URINE KETONE NEGATIVE (NEGATIVE); URINE LEUK ESTERASE 1+ (NEGATIVE); URINE NITRITE NEGATIVE (NEGATIVE); URINE PROTEIN 3+ (NEGATIVE); URINE UROBILINOGEN NEGATIVE mg/dL (0.2-1.0)
[2018-03-18 23:37] LABS: HCG,QUALITATIVE URINE Negative
[2018-03-18 23:40] LABS: EPI CELLS RARE /HPF (FEW); URINE BACTERIA RARE /hpf (NONE SEEN); URINE MUCUS RARE
[2018-03-18] MEDS ORDERED: PATIENT'S OWN MEDICATION (NON-FORMULARY) (Nifedipine [Procardia Xl] 60 MG) PO SCH (23:45)
[2018-03-18] MEDS ORDERED: ONDANSETRON 4 MG/2 ML VIAL IVPB ONE (23:53)
[2018-03-18] MEDS ORDERED: ONDANSETRON 4 MG/2 ML VIAL IVPUSH ONE (23:55)
[2018-03-19] MEDS ORDERED: ONDANSETRON 4 MG/2 ML VIAL ONE (00:03)
[2018-03-19] MEDS ORDERED: ACETAMINOPHEN INJECTION 100 ML IVPB ONE (00:10)
[2018-03-19] MEDS ORDERED: LABETALOL HCL 100 MG TABLET (FP) ONE (00:10)
[2018-03-19] MEDS ORDERED: ACETAMINOPHEN 1000 MG/100 ML VIAL (NON FORMULARY) IVPB ONE (00:10)
[2018-03-19] MEDS: LABETALOL HCL 200 MG TABLET (FP) PO SCH ×3 (00:16→21:56)
[2018-03-19] MEDS ORDERED: hydrALAZINE HCL 25 MG TABLET (FP) ONE (00:37)
[2018-03-19] MEDS ORDERED: SPIRONOLACTONE 25 MG TABLET (FP) ONE (00:38)
[2018-03-19] MEDS ORDERED: NIFEdipine E.R. 30 MG TABLET (FP) ONE (00:39)
[2018-03-19] MEDS: SPIRONOLACTONE 25 MG TABLET (FP) PO SCH ×3 (00:45→21:56)
[2018-03-19] MEDS: hydrALAZINE HCL 50 MG TABLET (FP) PO SCH ×3 (00:45→21:56)
[2018-03-19] MEDS: NIFEdipine E.R 60 MG TABLET (UD) PO SCH ×3 (00:47→21:56)
[2018-03-19] MEDS ORDERED: POTASSIUM CHLORIDE TABS 20 MEQ TABLET.ER (FP) PO ONE ×2 (01:35→01:40)
[2018-03-19] MEDS ORDERED: cloNIDine-TTS 0.3 MG /24 HRS PATCH.TDWK TD SCH ×2 (01:45→16:00)
[2018-03-19] MEDS ORDERED: PROCHLORPERAZINE INJECTION 10 MG/2 ML VIAL IVPB PRN (01:49)
[2018-03-19] MEDS ORDERED: MORPHINE SULFATE 2 MG/ML VIAL IVPUSH ONE ×2 (02:02→10:20)
--- NOTE | 2018-03-19 02:18 | HP ---
CHIEF COMPLAINT: nausea/vomiting/chest pain PCP: [facility] HISTORY OF PRESENT ILLNESS: Patient is a 37 y/o F w/ PMHx Conn syndrome since 2005 causing HTN, CKD, CHF, persistent troponemia, hypokalemia, s/p left arm AV fistula placement 5 days ago , p/w nausea, vomiting, inability to tolerate PO, left-sided chest pain radiating to fistula and worsened by coughing and inspiration, cough productive of sputum that is intermittently pink-tinged x 4 days. No BMs in that time. Denies BOYER, f/c, dysuria. Has not taken home medications since onset of symptoms. Found on presentation to be hypertensive to 202/133. In ED received IV labetalol, home oral anti-hypertensives, Zofran. BP resolved to 164/74. CXR was unremarkable. EKG showed non-specific t-wave abnormalities stable or improved from prior admission. Labs on presentation significant for Hb 7.5 ( baseline), Cr 6.0 (highest level recorded at this facility), initial troponin 0.17 (c/w prior presentations, patient appears to have chronic troponemia), K 3.2, AST/ALT 209/220 (new acute LFT elevation), UA w/ 3+ protein. ER course was notable for: (1) Trop 0.17 (2) AST/ALT 209/220 (3) Cr 6.0 Recent Travel: PAST MEDICAL HISTORY: As per HPI PAST SURGICAL HISTORY: As per HPI Social History: Smoking: Alcohol: Drugs: Family History: Allergies No Known Allergies Allergy (Verified 03/18/18 21:32) HOME MEDICATIONS: Home Medications Medication Instructions Recorded Atorvastatin Ca [Lipitor] 40 mg PO HS 30 Days #30 tablet 12/29/17 Clonidine Patch [Catapres Tts 0.3 mg TD WEEKLY 14 Days #2 patch 12/29/17 Patch -] Hydralazine HCl 50 mg PO BID 30 Days #60 tablet 12/29/17 Labetalol HCl [Normodyne -] 300 mg PO BID 30 Days #60 tablet 12/29/17 Nifedipine [Procardia Xl] 60 mg PO BID 30 Days #60 tab 12/29/17 Spironolactone [Aldactone -] 50 mg PO BID 30 Days #60 tab 12/29/17 Doxazosin Mesylate [Cardura -] 8 mg PO BID tablet 01/02/18 Potassium Chloride [K-Dur -] 40 meq PO DAILY tablet.er 01/02/18 Sennosides [Senna -] 1 tab PO HS PRN tablet 01/02/18 REVIEW OF SYSTEMS As per HPI PHYSICAL EXAMINATION Vital Signs - 24 hr 03/18/18 03/18/18 03/19/18 21:34 23:25 00:15 Temperature 99.3 F Pulse Rate 86 Pulse Rate [ Apical] Respiratory 18 Rate Blood Pressure 202/133 H Blood Pressure 213/140 H 202/134 H [Right Arm] O2 Sat by Pulse 98 Oximetry (%) 03/19/18 00:47 Temperature 98.1 F Pulse Rate Pulse Rate [ 84 Apical] Respiratory 18 Rate Blood Pressure Blood Pressure 164/74 [Right Arm] O2 Sat by Pulse 98 Oximetry (%) GENERAL: A&Ox3 HEAD: NC/AT EYES: PERRLA, EOMI EARS, NOSE, THROAT: Ears normal, nares patent, oropharynx clear without exudates. Moist mucous membranes. NECK: Normal range of motion, supple without lymphadenopathy, JVD, or masses. LUNGS: scant bibasilar crackles HEART: RRR no m/r/g ABDOMEN: +bs, soft, non-distended, LUQ TTP MUSCULOSKELETAL: Normal range of motion at all joints. No bony deformities or tenderness. No CVA tenderness. UPPER EXTREMITIES: 2+ pulses, warm, well-perfused. LUE AV fistula with thrill. No cyanosis. No clubbing. No peripheral edema. LOWER EXTREMITIES: 2+ pulses, warm, well-perfused. No calf tenderness. No peripheral edema. 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 Good eye contact. Appropriate mood and affect. SKIN: Warm, dry, normal turgor, no rashes or lesions noted, normal capillary refill. Laboratory Results - last 24 hr 03/18/18 03/18/18 03/18/18 22:40 22:40 22:40 WBC 7.1 RBC 2.44 L Hgb 7.5 L Hct 21.9 L MCV 89.7 MCH 30.7 MCHC 34.2 RDW 17.2 H Plt Count 184 MPV 8.3 Absolute Neuts (auto) 5.7 Neutrophils % 80.0 Lymphocytes % 11.1 D Monocytes % 4.5 Eosinophils % 4.0 Basophils % 0.4 Nucleated RBC % 0 PT with INR INR Sodium 137 Potassium 3.2 L Chloride 100 Carbon Dioxide 26 Anion Gap 12 BUN 65 H Creatinine 6.0 H Creat Clearance w eGFR 7.81 Random Glucose 97 Lactic Acid Calcium 9.0 Total Bilirubin 0.8 AST 209 H ALT 220 H Alkaline Phosphatase 89 Creatine Kinase 95 Troponin I 0.17 H Total Protein 6.1 L Albumin 3.0 L Urine Color Urine Appearance Urine pH Ur Specific Perry Urine Protein Urine Glucose (UA) Urine Ketones Urine Blood Urine Nitrite Urine Bilirubin Urine Urobilinogen Ur Leukocyte Esterase Urine WBC (Auto) Urine RBC (Auto) Ur Epithelial Cells Urine Bacteria Urine Mucus Urine HCG, Qual Influenza A (Rapid) Influenza B (Rapid) Blood Type AB POSITIVE Antibody Screen Negative 03/18/18 03/18/18 03/18/18 22:40 22:45 23:20 WBC RBC Hgb Hct MCV MCH MCHC RDW Plt Count MPV Absolute Neuts (auto) Neutrophils % Lymphocytes % Monocytes % Eosinophils % Basophils % Nucleated RBC % PT with INR 14.20 H INR 1.20 H Sodium Potassium Chloride Carbon Dioxide Anion Gap BUN Creatinine Creat Clearance w eGFR Random Glucose Lactic Acid 1.1 Calcium Total Bilirubin AST ALT Alkaline Phosphatase Creatine Kinase Troponin I Total Protein Albumin Urine Color Yellow Urine Appearance Clear Urine pH 5.0 Ur Specific Perry 1.011 Urine Protein 3+ H Urine Glucose (UA) Negative Urine Ketones Negative Urine Blood 1+ H Urine Nitrite Negative Urine Bilirubin Negative Urine Urobilinogen Negative Ur Leukocyte Esterase 1+ H Urine WBC (Auto) 16 Urine RBC (Auto) 3 Ur Epithelial Cells Rare Urine Bacteria Rare Urine Mucus Rare Urine HCG, Qual Negative Influenza A (Rapid) Influenza B (Rapid) Blood Type Antibody Screen 03/18/18 23:20 WBC RBC Hgb Hct MCV MCH MCHC RDW Plt Count MPV Absolute Neuts (auto) Neutrophils % Lymphocytes % Monocytes % Eosinophils % Basophils % Nucleated RBC % PT with INR INR Sodium Potassium Chloride Carbon Dioxide Anion Gap BUN Creatinine Creat Clearance w eGFR Random Glucose Lactic Acid Calcium Total Bilirubin AST ALT Alkaline Phosphatase Creatine Kinase Troponin I Total Protein Albumin Urine Color Urine Appearance Urine pH Ur Specific Perry Urine Protein Urine Glucose (UA) Urine Ketones Urine Blood Urine Nitrite Urine Bilirubin Urine Urobilinogen Ur Leukocyte Esterase Urine WBC (Auto) Urine RBC (Auto) Ur Epithelial Cells Urine Bacteria Urine Mucus Urine HCG, Qual Influenza A (Rapid) Negative Influenza B (Rapid) Negative Blood Type Antibody Screen ASSESSMENT/PLAN: 37 y/o F w/ PMHx Conn syndrome since 2005 causing HTN, CKD, CHF, persistent troponemia, hypokalemia, s/p left arm AV fistula placement 5 days ago, p/w nausea, vomiting, inability to tolerate PO, left-sided chest pain radiating to fistula and worsened by coughing and inspiration. Admitted for r/o ACS. #r/o ACS -chest pain is pleuritic -trend troponins -repeat EKG -one time morphine given for pain -do not give acetaminophen or NSAIDs -control BP -counseled to pursue outpatient cardiology f/u w/ stress test #nausea/vomiting -compazine PRN -QTc prolongation is chronic 2/2 hyperaldosteronism-induced hypokalemia #LFT abnormalities -new acute issue -hepatitis panel pending -RUQ US pending -trend LFTs #hypokalemia -2/2 Conn syndrome -given KCl at point of care -restarted on home KCl -monitor and replete as needed #HTN -restarted on home Nifedipine, labetalol, hydralazine, doxazosin, clonidine #Conn syndrome -restarted on home spironolactone #CHF -restarted on home spironolactone -no indication for diuresis #CKD -requires outpatient dialysis -monitor and replete electrolytes #FEN -no IVF -monitor and replete electrolytes -full liquid diet, advance to renal diet as tolerated #PPx -DVT: heparin subq -GI: not indicated #code -full #dispo -tele obs Visit type - Emergency Visit Emergency Visit: Yes Care time: The patient presented to the Emergency Department on the above date and was hospitalized for further evaluation of their emergent condition. - New Patient This patient is new to me today: Yes Date on this admission: 03/19/18 - Critical Care Critical Care patient: No
--- NOTE | 2018-03-19 02:37 | PN ---
Teaching Attending Note Name of Resident: Norberto Knox ATTENDING PHYSICIAN STATEMENT I saw and evaluated the patient. I reviewed the resident's note and discussed the case with the resident. I agree with the resident's findings and plan as documented. SUBJECTIVE: Seen and examined; this is a 37 y/o AAF with a PMH significant for multiple issues including severe HTN 2/2 hyperaldo, hypertensive heart disease, CKD-V now heading to ESRD with recent fistula insertion that presents to the ER today for atypical chest pain after not taking her BP meds that radiates to her new AVF. She has had the same pain in the past when she has forgotten her BP meds and was in hypertensive emergency. She hasn't seen anyone else for this issue; nothing makes her problems better or worse, she did get her BP meds in the ER which took her SBP from 210 to 160. She had the fistula put in 5 days ago for progressive CKD with plans to dialyze her when the fistula is mature for this; she doesn't have any indications for STAT HD today. EKG is benign with evidence of LVH compared to her previous study. Fistulogram was done in the ER which was preliminarily negative for thrombus. She did have a slight bump in her troponin which is seen on prior admissions as well. Her Cr isn't recorded as ever being this high here. She normally follows at the [facility] but was brought here today. She sees Dr. Dunham there for her HTN heart disease and has had medication intolerance in the past due to GI sx for which she sees GI. She has profound elements of noncompliance with her disease and multiple admits here ; has left AMA in the past. The troponins seen in the ER are flat and where she was before; they're likely non-diagnostic and evident of hypertensive heart disease combined with renal retention in the setting of elevated filling pressures. She was seen by Dr. Madrigal here in the past. 10 sys ROS done and negative except for HPI PMH and PSH reviewed FH reviewed Social history reveals positive UTOX for ilicits in the past; noncompliance and AMA DCs documented OBJECTIVE: VS, labs, imaging reviewed NAD, AAO, resting comfortably in bed not nauseous. AVF with bandages slightly ttp with palpable thrill. RRR s1/2 no mgr; BP still elevated but prior to PO medical doctor nuclear medicine at time of exam Lungs CTAB with sym exp NT ND +BS [id number] wnl, no fnd Normal mood, appropriate behavior EKG reviewed; no changes from prior in terms of ischemia; continued stereotyped LVH repol abnl Echo 2018 reviewed: Mild sys fn reduced, LVH, mild lat/inflat HK Labs show K 3.3, AST/ALT in low 200's elevated at ~1:1 ratio, Hb at baseline, trop 0.17 US fistula done in ER preliminarily with no clots CXR taken, pending image upload at this time ASSESSMENT AND PLAN: Mrs. Streeter is a 37 y/o AAF presenting with chest pain radiating to fistula and noncomplaince with BP meds causing HTN emergency 1) Hypertensive Emergency 2/2 uncontrolled HTN due to Conn's Syndrome -BP now SBP 160s after PO medications in ER (did initially get a small dose of labetalol before she was found to NOT have intractable vomiting, etc.). We will continue her home medications including Labetalol, Clonidine patch, Hydralazine, Nifedipine, Spironolactone, doxazosin, and Lasix. If this gets her to goal this would be acceptable and will monitor on tele; if not go ahead and increase likely hydralazine with consideration of CV consultation. She admits to not taking her meds. Evidence of end organ damage with the slight troponin leak. This is very similar to previous presentations. When she misses her medications she gets hypertensive easily with rapid fluctuations. [facility] with these medications. 2) Chest Pain -Atypical in presentation, similar to her past presentations. She tells me that she gets similar pain when she goes into these types of HTn emergencies and review of her chart agrees with her self-assessment. Will control BP, monitor on tele, and trend troponins (commented on below). Consider ASA for primary prevention once ascertained it is OK with the vascular surgeon who recently put her fistula in. Can consider CV consultation but overall this is likely 2/2 HTN 3) Elevated Troponin -At this level it is nondiagnosistc and similar to prior admits with HTN emergency. Will trend and followup tele as described above. -No prior stress test, has seen CV in the past. If no inpatient consult can followup outpatient and consider OP stress test w/ CV referral 4) Transamininitis -Broad ddx; never has been this high before. RUQ u/s is pending. Bili and Alk phos normal. FU u/s results and monitor for improvement with trending CMP. 5) Hypokalemia with H/O Hyperaldosteronism -Giving her AM dose now and rechecking in PM. She has needed up to 140mEq/ daily in the past. She also will be on lasix. Monitor K carefully. On home spironolactone. -Checking Mg 6) Mixed CHF -Known; 2018 echo reviewed. Euvolemic today no SOB or O2 requirements. Continue home medications as prescribed and followup. 7) Noncomplaince -Orthopedic Physician 8) Aortic Aneurysm -Known; no urgent need for operative intervention with it being 4.1cm 03/2017. BP control and close OP followup. 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 She will be starting HD with mature fistula soon. No urgent indication seen for HD. Will observe. In the meantime we will avoid any nephrotoxic agents, etc. As she is already being prepped for soon HD will not empirically hydrate as the Cr is known to be this high and we don't want to fluid overload her. 10) Fistula Pain -No clots in prelim US read; PRN tx and monitor exam. 11) Anemia -Continues to trend at baseline from prior admits; consider procrit but nonemergently 12) History of Drug Abuse -Old tox screen reviewed; new ordered FENA -PO with 2.5L restriction -PRn replete; follow K closely as described above -Renal, low salt -As tolerated Full Code
[2018-03-19] MEDS ORDERED: MORPHINE SULFATE 2 MG/ML VIAL ONE ×2 (02:51→10:32)
[2018-03-19 05:46] LABS: BASO % 0.2 % (0-2.0); EOS % 4.4 % (0-4.5); HEMATOCRIT 23.8 % (32.4-45.2); HEMOGLOBIN 7.7 GM/dL (10.7-15.3); LYMPH % 13.8 % (8-40); MCH 29.3 pg (25.7-33.7); MCHC 32.1 g/dl (32.0-36.0); MEAN CELL VOLUME 91.1 fl (80-96); MONO % 5.4 % (3.8-10.2); NEUT % 76.2 % (42.8-82.8); PLATELET COUNT 173 K/MM3 (134-434); RBC 2.62 M/mm3 (3.60-5.2); RDW 17.6 % (11.6-15.6); WHITE BLOOD COUNT 6.9 K/mm3 (4.0-10.0)
[2018-03-19] MEDS ORDERED: HEPARIN NA (PORCINE) 5,000 UNITS/ML 1ML VIAL SQ SCH (06:00)
[2018-03-19 06:33] LABS: ALK PHOS 90 U/L (45-117); ANION GAP 12 MMOL/L (8-16); BILIRUBIN,TOTAL 0.9 mg/dL (0.2-1); BLOOD UREA NITROGEN 67 mg/dL (7-18); CALCIUM 9.1 mg/dL (8.5-10.1); CHLORIDE 100 mmol/L (98-107); CO2 24 mmol/L (21-32); CREATININE 6.1 mg/dL (0.55-1.3); GLUCOSE,RANDOM 125 mg/dL (74-106); MAGNESIUM 2.3 mg/dL (1.8-2.4); PHOSPHOROUS 4.3 mg/dL (2.5-4.9); POTASSIUM 3.4 mmol/L (3.5-5.1); SGOT/AST 232 U/L (15-37); SGPT/ALT 255 U/L (13-61); SODIUM 137 mmol/L (136-145)
[2018-03-19] MEDS ORDERED: POTASSIUM CHLORIDE TABS 20 MEQ TABLET.ER (FP) PO SCH (10:00)
[2018-03-19] MEDS ORDERED: morphine CARPU-JECT 2 MG/1 ML DISP.SYRIN IVPUSH PRN (10:01)
--- NOTE | 2018-03-19 10:07 | PN ---
Physical Exam: SUBJECTIVE: Patient seen and examined in the ER awaiting bed assignment. OBJECTIVE: left upper arm by av fistula with +bruit and thrill painful left arm with redness, hot to touch, +induration. no fevers, no wbc elevation. - early cellulitis? no clots per ultrasound - ID consulted/vascular to f/u ordered blood cultures monitor left arm for worsening edema/pain. new av fistula placed last week. Vital Signs Period Temp Pulse Resp BP Sys/Li Pulse Ox Last 24 Hr 98.1 F-99.3 F 83-86 18-18 157-213/74-140 98-99 GENERAL: alert and oriented x 3, in no acute distress HEAD: no signs of trauma EYES: PERRLA, EOMI EARS, NOSE, THROAT: Ears normal, nares patent, oropharynx clear without exudates. Moist mucous membranes. NECK: Normal range of motion, supple without lymphadenopathy, JVD, or masses. LUNGS: fine crackles at the bases HEART: RRR ABDOMEN: +bs, soft, non-distended MUSCULOSKELETAL: Normal range of motion at all joints. No bony deformities or tenderness UPPER EXTREMITIES: left upper arm by av fistula with +bruit and thrill painful left arm with redness, hot to touch, +induration. no fevers, no wbc elevation. - early cellulitis? no clots per ultrasound - ID consulted/vascular to f/u LOWER EXTREMITIES: No peripheral edema. NEUROLOGICAL: awake and alert PSYCHIATRIC: Cooperative. Good eye contact. Appropriate mood and affect. Laboratory Results - last 24 hr 03/18/18 03/18/18 03/18/18 22:40 22:40 22:40 WBC 7.1 RBC 2.44 L Hgb 7.5 L Hct 21.9 L MCV 89.7 MCH 30.7 MCHC 34.2 RDW 17.2 H Plt Count 184 MPV 8.3 Absolute Neuts (auto) 5.7 Neutrophils % 80.0 Lymphocytes % 11.1 D Monocytes % 4.5 Eosinophils % 4.0 Basophils % 0.4 Nucleated RBC % 0 PT with INR INR Sodium 137 Potassium 3.2 L Chloride 100 Carbon Dioxide 26 Anion Gap 12 BUN 65 H Creatinine 6.0 H Creat Clearance w eGFR 7.81 Random Glucose 97 Lactic Acid Calcium 9.0 Phosphorus Magnesium Total Bilirubin 0.8 AST 209 H ALT 220 H Alkaline Phosphatase 89 Creatine Kinase 95 Troponin I 0.17 H Total Protein 6.1 L Albumin 3.0 L Urine Color Urine Appearance Urine pH Ur Specific [place] Urine Protein Urine Glucose (UA) Urine Ketones Urine Blood Urine Nitrite Urine Bilirubin Urine Urobilinogen Ur Leukocyte Esterase Urine WBC (Auto) Urine RBC (Auto) Ur Epithelial Cells Urine Bacteria Urine Mucus Urine HCG, Qual Influenza A (Rapid) Influenza B (Rapid) Blood Type AB POSITIVE Antibody Screen Negative 03/18/18 03/18/18 03/18/18 22:40 22:45 23:20 WBC RBC Hgb Hct MCV MCH MCHC RDW Plt Count MPV Absolute Neuts (auto) Neutrophils % Lymphocytes % Monocytes % Eosinophils % Basophils % Nucleated RBC % PT with INR 14.20 H INR 1.20 H Sodium Potassium Chloride Carbon Dioxide Anion Gap BUN Creatinine Creat Clearance w eGFR Random Glucose Lactic Acid 1.1 Calcium Phosphorus Magnesium Total Bilirubin AST ALT Alkaline Phosphatase Creatine Kinase Troponin I Total Protein Albumin Urine Color Yellow Urine Appearance Clear Urine pH 5.0 Ur Specific [place] 1.011 Urine Protein 3+ H Urine Glucose (UA) Negative Urine Ketones Negative Urine Blood 1+ H Urine Nitrite Negative Urine Bilirubin Negative Urine Urobilinogen Negative Ur Leukocyte Esterase 1+ H Urine WBC (Auto) 16 Urine RBC (Auto) 3 Ur Epithelial Cells Rare Urine Bacteria Rare Urine Mucus Rare Urine HCG, Qual Negative Influenza A (Rapid) Influenza B (Rapid) Blood Type Antibody Screen 03/18/18 03/19/18 03/19/18 23:20 04:33 05:10 WBC 6.9 RBC 2.62 L Hgb 7.7 L Hct 23.8 L MCV 91.1 MCH 29.3 MCHC 32.1 RDW 17.6 H Plt Count 173 MPV 8.0 Absolute Neuts (auto) 5.2 Neutrophils % 76.2 Lymphocytes % 13.8 D Monocytes % 5.4 Eosinophils % 4.4 Basophils % 0.2 Nucleated RBC % 0 PT with INR INR Sodium Potassium Chloride Carbon Dioxide Anion Gap BUN Creatinine Creat Clearance w eGFR Random Glucose Lactic Acid Calcium Phosphorus Magnesium Total Bilirubin AST ALT Alkaline Phosphatase Creatine Kinase Troponin I 0.18 H Total Protein Albumin Urine Color Urine Appearance Urine pH Ur Specific [place] Urine Protein Urine Glucose (UA) Urine Ketones Urine Blood Urine Nitrite Urine Bilirubin Urine Urobilinogen Ur Leukocyte Esterase Urine WBC (Auto) Urine RBC (Auto) Ur Epithelial Cells Urine Bacteria Urine Mucus Urine HCG, Qual Influenza A (Rapid) Negative Influenza B (Rapid) Negative Blood Type Antibody Screen 03/19/18 05:10 WBC RBC Hgb Hct MCV MCH MCHC RDW Plt Count MPV Absolute Neuts (auto) Neutrophils % Lymphocytes % Monocytes % Eosinophils % Basophils % Nucleated RBC % PT with INR INR Sodium 137 Potassium 3.4 L Chloride 100 Carbon Dioxide 24 Anion Gap 12 BUN 67 H Creatinine 6.1 H Creat Clearance w eGFR 7.66 Random Glucose 125 H Lactic Acid Calcium 9.1 Phosphorus 4.3 Magnesium 2.3 Total Bilirubin 0.9 AST 232 H ALT 255 H Alkaline Phosphatase 90 Creatine Kinase Troponin I Total Protein 6.0 L Albumin 3.0 L Urine Color Urine Appearance Urine pH Ur Specific [place] Urine Protein Urine Glucose (UA) Urine Ketones Urine Blood Urine Nitrite Urine Bilirubin Urine Urobilinogen Ur Leukocyte Esterase Urine WBC (Auto) Urine RBC (Auto) Ur Epithelial Cells Urine Bacteria Urine Mucus Urine HCG, Qual Influenza A (Rapid) Influenza B (Rapid) Blood Type Antibody Screen Active Medications Generic Name Dose Route Start Last Admin Trade Name Freq PRN Reason Stop Dose Admin Doxazosin Mesylate 8 mg 03/19/18 10:00 Cardura - PO BID BRET Hydralazine HCl 50 mg 03/18/18 23:45 03/19/18 00:45 Apresoline - PO 50 mg BID BRET Administration Labetalol HCl 300 mg 03/18/18 23:45 03/19/18 00:16 Normodyne - PO 300 mg BID BRET Administration Morphine Sulfate 2 mg 03/19/18 10:01 Morphine Injection - IVPUSH Q4H PRN PAIN Nifedipine 60 mg 03/19/18 00:45 03/19/18 00:47 Procardia Xl - PO 60 mg BID BRET Administration Potassium Chloride 40 meq 03/19/18 10:00 K-Dur - PO DAILY BRET Prochlorperazine Edisylate 10 mg 03/19/18 01:49 Compazine Injection - IVPB Q4H PRN NAUSEA AND/OR VOMITING Spironolactone 50 mg 03/18/18 23:45 03/19/18 00:45 Aldactone - PO 50 mg BID BRET Administration ASSESSMENT/PLAN: Patient is a 37 year old female with pmhx of primary aldosteronism (conn syndrome), CKD, recent left arm AV fistula placement, hypertension, CHF. Patient reports to the Ed with c/o of abdominal pain, with nausea and vomiting. On admission she was found to have hypertensive emergency, worsening renal failure, and a left upper arm pain with redness and tenderness. -- primary aldosteronism (conn syndrome) CKD left arm fistula pain/tenderness hypertension CHF abdominal pain ---- Cardiology Conn syndrome/Hypertensive urgency. Patient presents with bp 200/100s in the setting of Conns disease. Currently controlled on Sprionolactone 50mg po bid, Procardia 60mg bid, labetalol 300mg bid, hydralazine 50mg bid, cardura 8mg bid. Monitor BP, cardiology consulted Hypokalemia. Likely secondary to conn syndrome Daily monitoring. will add supplement of K renal following Chest pain Troponins flat trendng Ecg reviewed. Chest pain now resolved. Monitor on tele. cardiology following. QT prolonged. avoid meds that further prolong daily EKG to observe qt. Renal CKD. creat 6.1 Renal consult for possible start of dialysis Monitor electrolytes Vascular Left arm fistula pain/tenderness. Left upper arm with pain, tenderness and induration No fever or leukocytosis Blood cultures ordered Vascular consulted ID following for possible antibiotic therapy GI: Abdominal pain. No acute pathology on abd ct scan start diet and upgrade as tolerated Elevated ast/alt hepatitis panel ordered Hepatomegaly with cysts Monitor ast/alt fen no ivf monitor electrolytes renal diet prophy heparin bid Visit type - Emergency Visit Emergency Visit: Yes ED Registration Date: 03/19/18 Care time: The patient presented to the Emergency Department on the above date and was hospitalized for further evaluation of their emergent condition. - New Patient This patient is new to me today: Yes Date on this admission: 03/19/18 - Critical Care Critical Care patient: No - Discharge Referral Referred to [facility] No
[2018-03-19] MEDS: POTASSIUM CHLORIDE TABS 20 MEQ TABLET.ER (FP) PO SCH (10:45)
[2018-03-19] MEDS: DOXAZOSIN MESYLATE 4 MG TABLET PO SCH ×2 (10:45→21:56)
--- NOTE | 2018-03-19 11:09 | EKG ---
Test Reason : Blood Pressure : / mmHG Vent. Rate : 083 BPM Atrial Rate : 083 BPM P-R Int : 180 ms QRS Dur : 104 ms QT Int : 428 ms P-R-T Axes : 059 -13 102 degrees QTc Int : 502 ms NORMAL SINUS RHYTHM POSSIBLE LEFT ATRIAL ENLARGEMENT NONSPECIFIC ST AND T WAVE ABNORMALITY PROLONGED QT ABNORMAL ECG WHEN COMPARED WITH ECG OF 01-JAN-2018 08:42, Confirmed by ROSA MARIA RAYO MD ([id number]) on 03/19/2018 11:08:59 AM Referred By: Confirmed By:ROSA MARIA RAYO MD
--- NOTE | 2018-03-19 12:35 | ECHO ---
Name: JAIDEN STEVENS Exam:Adult Echocardiogram Study Date: 03/19/2018 10:58 AM Age: 37 yrs Reason For Study: Chest pain Height: 72 in Weight: 150 lb BSA: 1.9 m2 MMode/2D Measurements & Calculations IVSd: 1.6 cm Ao root diam: 3.3 cm LVIDd: 5.4 cm LA dimension: 4.1 cm LVIDs: 3.4 cm LVPWd: 1.6 cm EDV(Teich): 141.8 ml LAV (MOD-bp): 112.0 ml ESV(Teich): 46.6 ml Doppler Measurements & Calculations MV E max ze: 133.0 cm/sec AI P1/2t: 757.5 msec MV A max ze: 61.1 cm/sec MV E/A: 2.2 MV dec time: 0.17 sec AI max ze: 346.7 cm/sec MR max ze: 454.7 cm/sec AI max P.3 mmHg MR max P.7 mmHg AI dec slope: 134.1 cm/sec2 TR max ze: 263.6 cm/sec PI end-d ze: 131.7 cm/sec TR max P.2 mmHg Med Peak E' Ze: 4.6 cm/sec Med E/e': 29.1 Lat Peak E' Ze: 8.1 cm/sec Lat E/e': 16.5 Procedure A complete two-dimensional transthoracic echocardiogram was performed (2D, M-mode, Doppler and color flow Doppler). Left Ventricle The left ventricle is normal in size. There is moderate concentric left ventricular hypertrophy. Left ventricular systolic function is normal. Ejection Fraction = 55-60%. The transmitral spectral Doppler flow pattern is suggestive of restrictive physiology. Ratio E/E'= 29. No regional wall motion abnormalitie s noted. Right Ventricle The right ventricle is normal size. The right ventricular systolic function is normal. Atria The left atrium is mildly dilated. The right atrium is moderately dilated. Mitral Valve There is mild mitral valve thickening. There is moderate mitral regurgitation. Tricuspid Valve The tricuspid valve is normal in structure and function. There is moderate to severe tricuspid regurg itation. The tricuspid regurgitant jet is eccentrically directed. Pulmonary artery systolic pressure is at paras st 50 mmHg assuming RA pressure of 15 mmHg (dilated IVC and <50% collapse). Aortic Valve The aortic valve is normal in structure and function. Mild to moderate aortic regurgitation. Pulmonic Valve The pulmonic valve is not well visualized. Mild pulmonic valvular regurgitation. Great Vessels The aortic root is normal size. Pericardium/Pleura Small pericardial effusion (<1cm). Interpretation Summary The left ventricle is normal in size. There is moderate concentric left ventricular hypertrophy. Left ventricular systolic function is normal. No regional wall motion abnormalities noted. Ejection Fraction = 55-60%. The transmitral spectral Doppler flow pattern is suggestive of restrictive physiology. Ratio E/E'= 29 c/w elevated filling pressure The right ventricular systolic function is normal. The left atrium is mildly dilated. The right atrium is moderately dilated. There is mild mitral valve thickening. There is moderate mitral regurgitation. There is moderate to severe tricuspid regurgitation. The tricuspid regurgitant jet is eccentrically directed. Pulmonary artery systolic pressure is at least 50 mmHg assuming RA pressure of 15 mmHg (dilated IVC a nd <50% collapse) Mild to moderate aortic regurgitation. Mild pulmonic valvular regurgitation. Small pericardial effusion (<1cm) Previous study is not available for comparison Frantz Ricketts MD 03/19/2018 12:34 PM
--- NOTE | 2018-03-19 12:59 | CON.ID ---
Consult Consult Specialty:: infectious disease Referred by:: hospitalist Reason for Consultation:: erythema and warmth at AVG site - History of Present Illness Chief Complaint: nausea and vomiting since History of Present Illness: 37 yo female with HTN, s/p avg placement on Monday- on she developed chills and fever and vomiting the chills and fever resolved but hte vomiting persisted along with cough, she has been unable to take pos including her meds has had pain at avg site as well +constipation no BM since Surgery last Monday in ER bp was very high 202/134 now improved baseline creatinine is 5 has not started dialysis yet avg placed at the [facility] - History Source History Provided By: Patient, Medical Record - Past Medical History Cardio/Vascular: Yes: CAD, HTN Renal/: Yes: Renal Inusuff, Other (Conn syndrome) Endocrine: Yes: Other (hyperaldosteronism) - Past Surgical History Past Surgical History: Yes: - Alcohol/Substance Use Hx Alcohol Use: No History of Substance Use: reports: None - Smoking History Smoking history: Former smoker Have you smoked in the past 12 months: No If you are a former smoker, when did you quit?: 01/01 - Social History Usual Living Arrangement: With Child ADL: Independent Occupation: [employer] History of Recent Travel: No Home Medications - Allergies Allergies/Adverse Reactions: Allergies Allergy/AdvReac Type Severity Reaction Status Date / Time No Known Allergies Allergy Verified 03/18/18 21:32 - Home Medications Home Medications: Ambulatory Orders Atorvastatin Ca [Lipitor] 40 mg PO HS 30 Days #30 tablet 12/29/17 Clonidine Patch [Catapres Tts Patch -] 0.3 mg TD WEEKLY 14 Days #2 patch Hydralazine HCl 50 mg PO BID 30 Days #60 tablet 12/29/17 Labetalol HCl [Normodyne -] 300 mg PO BID 30 Days #60 tablet 12/29/17 Nifedipine [Procardia Xl] 60 mg PO BID 30 Days #60 tab 12/29/17 Spironolactone [Aldactone -] 50 mg PO BID 30 Days #60 tab 12/29/17 Doxazosin Mesylate [Cardura -] 8 mg PO BID tablet 01/02/18 Potassium Chloride [K-Dur -] 40 meq PO DAILY tablet.er 01/02/18 Sennosides [Senna -] 1 tab PO HS PRN tablet 01/02/18 Family Disease History - Family Disease History Family Disease History: Other: Grandparent (htn), Mother (htn) Review of Systems - Review of Systems Eyes: reports: Other (left eye with discomfort on lateral aspect of the eye) HENT: reports: No Symptoms Neck: reports: No Symptoms Cardiovascular: reports: No Symptoms, Edema. denies: Chest Pain Respiratory: reports: Cough Gastrointestinal: reports: No Symptoms, Constipation, Vomiting Genitourinary: reports: No Symptoms Physical Exam Vital Signs: Vital Signs Temperature 98 F 03/19/18 10:25 Pulse Rate 68 03/19/18 10:25 Respiratory Rate 16 03/19/18 10:25 Blood Pressure 140/92 03/19/18 10:25 O2 Sat by Pulse Oximetry (%) 99 03/19/18 10:25 Constitutional: Yes: Well Nourished, No Distress Eyes: Yes: Conjunctiva Clear HENT: Yes: Atraumatic, Normocephalic. No: Thrush Neck: Yes: Supple, Trachea Midline Cardiovascular: Yes: Regular Rate and Rhythm, Gallop Respiratory: Yes: Regular, CTA Bilaterally Gastrointestinal: Yes: Normal Bowel Sounds, Soft ...Rectal Exam: Yes: Deferred Edema: LLE: Trace, RLE: Trace Peripheral Pulses WNL: Yes Psychiatric: Yes: Alert, Oriented Labs: CBC, BMP 03/19/18 05:10 03/19/18 05:10 Imaging - Results Chest X-ray: Report Reviewed, Image Reviewed Ultrasound: Report Reviewed Problem List - Problems (1) Hypertensive emergency Code(s): I16.1 - HYPERTENSIVE EMERGENCY (2) Nausea & vomiting Code(s): R11.2 - NAUSEA WITH VOMITING, UNSPECIFIED (3) Abnormal LFTs Code(s): R94.5 - ABNORMAL RESULTS OF LIVER FUNCTION STUDIES (4) Acute on chronic renal failure Code(s): N17.9 - ACUTE KIDNEY FAILURE, UNSPECIFIED; N18.9 - CHRONIC KIDNEY DISEASE, UNSPECIFIED (5) Aldosterone excess (Conn syndrome) Code(s): E26.01 - CONN'S SYNDROME (6) S/P arteriovenous (AV) graft placement Code(s): Z98.890 - OTHER SPECIFIED POSTPROCEDURAL STATES Assessment/Plan suggest blood cultures- currently no fever or leukocytosis mild warmth at graft site not uncommon no drainage noted await ultrasound of the graft blood cultures monitor lfts, hepatitis serology treat constipation renal evaluation d/w hospitalist
[2018-03-19] MEDS: POLYETHYLENE GLYCOL 3350 119 GM BTL PO SCH ×2 (13:09→21:57)
[2018-03-19] MEDS ORDERED: DOCUSATE SODIUM 100 MG CAPSULE (FP) PO ONE (13:40)
[2018-03-19] MEDS: DOCUSATE SODIUM 100 MG CAPSULE (FP) PO SCH ×2 (13:46→21:56)
--- NOTE | 2018-03-19 14:32 | CON.CARD ---
Cardiology Consult (text) - Consultation Consultation Note: Consult Specialty:: cardio - History of Present Illness Chief Complaint: cp History of Present Illness: 37 F with sec HTN from [facility] prior admits for HTN urgency with sx's of CP, ESRD here with chest pain after not taking BP meds. Fistula placed on Mon , was nauseous/vomiting afterwards and did not take her BP meds since then. Multiple prior episodes for same. BP in ER 210, improved to 160 with home meds , hydralazine 5 mg IV x 1. Fistulogram in ED neg for thrombus, trop mildly elevated 0.17 similar to prior. Chest pain is much better, almost resolved, still has arm pain at fistula site. No dyspnea, edema, palps, dizziness PMH: HTN, hyperaldo CKD, stage 5 hypertensive heart dz with CHF aorta aneurysm - Past Medical History Cardio/Vascular: Yes: CAD, HTN Renal/: Yes: Renal Inusuff, Other (Conn syndrome) Endocrine: Yes: Other (hyperaldosteronism) - Past Surgical History Past Surgical History: Yes: - Alcohol/Substance Use Hx Alcohol Use: No History of Substance Use: reports: None - Smoking History Smoking history: Never smoked Have you smoked in the past 12 months: No If you are a former smoker, when did you quit?: january - Social History ADL: Independent Occupation: [employer] History of Recent Travel: No Home Medications - Allergies Allergies/Adverse Reactions: Allergies Allergy/AdvReac Type Severity Reaction Status Date / Time No Known Allergies Allergy Verified 03/18/18 21:32 - Home Medications Home Medications: Ambulatory Orders Atorvastatin Ca [Lipitor] 40 mg PO HS 30 Days #30 tablet 12/29/17 Clonidine Patch [Catapres Tts Patch -] 0.3 mg TD WEEKLY 14 Days #2 patch Hydralazine HCl 50 mg PO BID 30 Days #60 tablet 12/29/17 Labetalol HCl [Normodyne -] 300 mg PO BID 30 Days #60 tablet 12/29/17 Nifedipine [Procardia Xl] 60 mg PO BID 30 Days #60 tab 12/29/17 Spironolactone [Aldactone -] 50 mg PO BID 30 Days #60 tab 12/29/17 Doxazosin Mesylate [Cardura -] 8 mg PO BID tablet 01/02/18 Potassium Chloride [K-Dur -] 40 meq PO DAILY tablet.er 01/02/18 Sennosides [Senna -] 1 tab PO HS PRN tablet 01/02/18 Family Disease History - Family Disease History Family Disease History: Other: Grandparent (htn), Mother (htn) Review of Systems - Review of Systems Constitutional: denies: Chills, Fever Eyes: denies: Eye Pain HENT: denies: Nasal Congestion Neck: denies: Stiffness Cardiovascular: denies: Palpitations Respiratory: denies: Orthopnea, PND Gastrointestinal: denies: Diarrhea, Rectal Bleeding Genitourinary: denies: Burning, Hematuria Musculoskeletal: denies: Muscle Pain Integumentary: denies: Rash Neurological: denies: Numbness, Seizure, Syncope Endocrine: denies: Excessive Sweating Hematology/Lymphatic: denies: Excessive Bleeding Vital Signs Period Temp Pulse Resp BP Sys/Li Pulse Ox Last 24 Hr 98 F-99.3 F 65-86 16-18 111-213/62-140 98-99 Constitutional: Yes: Well Nourished, No Distress Eyes: No: Sclera Icterus HENT: No: Nasal Congestion Neck: No: Decreased ROM Respiratory: Yes: CTA Bilaterally. No: Accessory Muscle Use Gastrointestinal: Yes: Normal Bowel Sounds. No: Distention, Hepatomegaly, Palpable Mass, Tenderness Cardiovascular: Yes: Regular Rate and Rhythm JVD: No Carotid Bruit: No PMI: Non-Displaced Heart Sounds: Yes: S1, S2. No: Gallop Murmur: No: Systolic Murmur, Diastolic Murmur Musculoskeletal: Yes: Other (No kyphosis) Extremities: No: Cool, Cyanosis Edema: No Peripheral Pulses: 2+ Left Carotid, 2+ Right Carotid, 2+ Left Doralis Pedis, 2+ Right Dorsalis Pedis Integumentary: No: Jaundice Neurological: Yes: Alert, Oriented (x3), Other (sleepy, easily rousable). No: Seizure Psychiatric: No: Agitated Laboratory Last Values WBC 6.9 K/mm3 (4.0-10.0) 03/19/18 05:10 RBC 2.62 M/mm3 (3.60-5.2) L 03/19/18 05:10 Hgb 7.7 GM/dL (10.7-15.3) L 03/19/18 05:10 Hct 23.8 % (32.4-45.2) L 03/19/18 05:10 MCV 91.1 fl (80-96) 03/19/18 05:10 MCH 29.3 pg (25.7-33.7) 03/19/18 05:10 MCHC 32.1 g/dl (32.0-36.0) 03/19/18 05:10 RDW 17.6 % (11.6-15.6) H 03/19/18 05:10 Plt Count 173 K/MM3 (134-434) 03/19/18 05:10 MPV 8.0 fl (7.5-11.1) 03/19/18 05:10 Absolute Neuts (auto) 5.2 K/mm3 (1.5-8.0) 03/19/18 05:10 Neutrophils % 76.2 % (42.8-82.8) 03/19/18 05:10 Lymphocytes % 13.8 % (8-40) D 03/19/18 05:10 Monocytes % 5.4 % (3.8-10.2) 03/19/18 05:10 Eosinophils % 4.4 % (0-4.5) 03/19/18 05:10 Basophils % 0.2 % (0-2.0) 03/19/18 05:10 Nucleated RBC % 0 % (0-0) 03/19/18 05:10 PT with INR 14.20 SEC (9.7-13.0) H 03/18/18 22:40 INR 1.20 (0.83-1.09) H 03/18/18 22:40 Sodium 137 mmol/L (136-145) 03/19/18 05:10 Potassium 3.4 mmol/L (3.5-5.1) L 03/19/18 05:10 Chloride 100 mmol/L (98-107) 03/19/18 05:10 Carbon Dioxide 24 mmol/L (21-32) 03/19/18 05:10 Anion Gap 12 MMOL/L (8-16) 03/19/18 05:10 BUN 67 mg/dL (7-18) H 03/19/18 05:10 Creatinine 6.1 mg/dL (0.55-1.3) H 03/19/18 05:10 Creat Clearance w eGFR 7.66 (>60) 03/19/18 05:10 Random Glucose 125 mg/dL (74-106) H 03/19/18 05:10 Lactic Acid 1.1 mmol/L (0.4-2.0) 03/18/18 22:45 Calcium 9.1 mg/dL (8.5-10.1) 03/19/18 05:10 Phosphorus 4.3 mg/dL (2.5-4.9) 03/19/18 05:10 Magnesium 2.3 mg/dL (1.8-2.4) 03/19/18 05:10 Total Bilirubin 0.9 mg/dL (0.2-1) 03/19/18 05:10 AST 232 U/L (15-37) H 03/19/18 05:10 ALT 255 U/L (13-61) H 03/19/18 05:10 Alkaline Phosphatase 90 U/L (45-117) 03/19/18 05:10 Creatine Kinase 95 IU/L (26-192) 03/18/18 22:40 Troponin I 0.14 ng/ml (0.00-0.05) H 03/19/18 12:50 Total Protein 6.0 g/dl (6.4-8.2) L 03/19/18 05:10 Albumin 3.0 g/dl (3.4-5.0) L 03/19/18 05:10 Urine Color Yellow 03/18/18 23:20 Urine Appearance Clear 03/18/18 23:20 Urine pH 5.0 (5.0-8.0) 03/18/18 23:20 Ur Specific [place] 1.011 (1.010-1.035) 03/18/18 23:20 Urine Protein 3+ (NEGATIVE) H 03/18/18 23:20 Urine Glucose (UA) Negative (NEGATIVE) 03/18/18 23:20 Urine Ketones Negative (NEGATIVE) 03/18/18 23:20 Urine Blood 1+ (NEGATIVE) H 03/18/18 23:20 Urine Nitrite Negative (NEGATIVE) 03/18/18 23:20 Urine Bilirubin Negative (<2.0 mg/dL) 03/18/18 23:20 Urine Urobilinogen Negative mg/dL (0.2-1.0) 03/18/18 23:20 Ur Leukocyte Esterase 1+ (NEGATIVE) H 03/18/18 23:20 Urine WBC (Auto) 16 /hpf (3-5) 03/18/18 23:20 Urine RBC (Auto) 3 /hpf (0-3) 03/18/18 23:20 Ur Epithelial Cells Rare /HPF (FEW) 03/18/18 23:20 Urine Bacteria Rare /hpf (NONE SEEN) 03/18/18 23:20 Urine Mucus Rare 03/18/18 23:20 Urine HCG, Qual Negative 03/18/18 23:20 Influenza A (Rapid) Negative 03/18/18 23:20 Influenza B (Rapid) Negative 03/18/18 23:20 Blood Type AB POSITIVE 03/18/18 22:40 Antibody Screen Negative 03/18/18 22:40 Assessment/Plan ecg 03/2018 sinus, LVH with repol changes, prolonged QTc 503, CXR: congestive changes, CM, unfolded aorta no change vs prior echo 06/2017: mild lve. 1+ conc lvh. mild dec lv sys fn. mild-mod lat wall HK. mod inferolateral wall HK. 1+ lae. 1+ ar, mod mr, nl aortic root size. small pericardial effusion (images reviewed by dr taylor: no regionality to LV hypokinesis--there is global mild-moderate LV hypokinesis, EF 40-45%. moderate conc LVH. moderate MR) echo 03/2018 nl LV size/function EF 55-60%, mod conc LVH, restrictive physiology , E/E' 29 c/w elevated filling pressure, LA mildly dilated, RA mod dilated, mod MR, mod to sev TR with eccentric jet, PASP at least 50 mmHg, mild to mod AR, mild OR, sm pericardial effusion <[address] 03/2017: Ascending aorta 4.1 cm. PA dilation (3.6 cm). tele: sinus 60s hypertensive urgency, known h/o secondary HTN/hyperaldosteronism, hypertensive heart dz/renal dz: - HTN urgency admit here previously triggered by non-adherence to po meds due to nausea and vomiting - multiple admits for HTN urgency in past few months (responsive to nicardipine drip each time), last was 12/2017 - d/c meds at that time Labetalol 300 mg PO BID, Clonidine Patch 0.3 weekly, Hydralazine HCl 50 mg PO BID, Nifedipine XL 60 mg PO BID, Spironolactone 50 mg PO BID, doxazosin 8 mg BID - restarted on home meds - follows with HTN specialist (Dr. Dunham) at [place], as well as GI there to optimize GI sx's that interfere with med adherence chest pain, elevated troponin: - prior presentations of htn urgency accompanied by CP as well. - this is likely sx of severely elevated BP, as in the past it was - appears hemodynamically stable, non-toxic, and cp resolved promptly with tx of BP--clinically not suspicious for acute aorta pathology or ACS - CXR no widened mediastinum (image reviewed by me), cardiomediastinal silhouette no signif change vs prior - troponins flat (0.17->0.18->0.14), non-diagnostic range, stable vs mult prior admits. this is due to elevated filling pressures and LVH. - ecg unchanged vs priors, sec to LVH repolarization abnormalities hypokalemia-->causing prolonged QT: - sec to hyperaldosteronism. - has required up to 140 meq qd K repletion in past - QT remains prolonged here--replete K, observe QT trend chronic syst/diast(mixed) CHF: - hypertensive cardiomyopathy - restrictive physiology on echo - appears euvolemic aorta aneurysm: -4.1 cm ascending aorta on 03/2017 CT scan -sec to uncontrolled HTN -bp control, including BB as doing -routine outpt aorta surveillance CKD: -creat running around high 4's-low 5's baseline here -stable here - renal following, AV fistula placed with plan for HD
--- NOTE | 2018-03-19 14:50 | CONSULT ---
Consult Consult Specialty:: Nephrology Reason for Consultation:: CKD - History of Present Illness Chief Complaint: nausea, vomiting and cough History of Present Illness: Pt is a 37 year old female with pmhx of COnn syndrome, CKD, HTN, CHF, and non compliance who presents to the ER with nausea and vomiting. She was found to be hypertensive. She was found to have worsening renal failure. She has an av graft placed at the [facility] 5 days ago. She complains of pain in her left arm. She also complains of a productive cough and fevers. SHe denies shortness of breath. She denies dysuria. - History Source History Provided By: Patient, Medical Record - Past Medical History Cardio/Vascular: Yes: CAD, HTN Renal/: Yes: Renal Inusuff, Other (Conn syndrome) Endocrine: Yes: Other (hyperaldosteronism) - Past Surgical History Past Surgical History: Yes: AV Fistula/Graft, - Alcohol/Substance Use Hx Alcohol Use: No History of Substance Use: reports: None - Smoking History Smoking history: Former smoker Have you smoked in the past 12 months: No If you are a former smoker, when did you quit?: 01/01 - Social History Usual Living Arrangement: With Child ADL: Independent Occupation: [email or web address] History of Recent Travel: No Home Medications - Allergies Allergies/Adverse Reactions: Allergies Allergy/AdvReac Type Severity Reaction Status Date / Time No Known Allergies Allergy Verified 03/18/18 21:32 - Home Medications Home Medications: Ambulatory Orders Atorvastatin Ca [Lipitor] 40 mg PO HS 30 Days #30 tablet 12/29/17 Clonidine Patch [Catapres Tts Patch -] 0.3 mg TD WEEKLY 14 Days #2 patch Hydralazine HCl 50 mg PO BID 30 Days #60 tablet 12/29/17 Labetalol HCl [Normodyne -] 300 mg PO BID 30 Days #60 tablet 12/29/17 Nifedipine [Procardia Xl] 60 mg PO BID 30 Days #60 tab 12/29/17 Spironolactone [Aldactone -] 50 mg PO BID 30 Days #60 tab 12/29/17 Doxazosin Mesylate [Cardura -] 8 mg PO BID tablet 01/02/18 Potassium Chloride [K-Dur -] 40 meq PO DAILY tablet.er 01/02/18 Sennosides [Senna -] 1 tab PO HS PRN tablet 01/02/18 Family Disease History - Family Disease History Family Disease History: Other: Grandparent (htn), Mother (htn) Review of Systems - Review of Systems Constitutional: reports: Fever, Malaise Eyes: reports: No Symptoms HENT: reports: No Symptoms Neck: reports: No Symptoms Cardiovascular: reports: Edema Respiratory: reports: SOB on Exertion Gastrointestinal: reports: Abdominal Pain, Nausea, Vomiting Genitourinary: reports: No Symptoms Musculoskeletal: reports: No Symptoms Integumentary: reports: No Symptoms Neurological: reports: No Symptoms Endocrine: reports: No Symptoms Hematology/Lymphatic: reports: No Symptoms Psychiatric: reports: No Symptoms Physical Exam Vital Signs: Vital Signs Temperature 98.5 F 03/19/18 13:36 Pulse Rate 65 03/19/18 13:36 Respiratory Rate 18 03/19/18 13:36 Blood Pressure 111/62 03/19/18 13:36 O2 Sat by Pulse Oximetry (%) 98 03/19/18 13:36 Constitutional: Yes: Calm Eyes: Yes: Conjunctiva Clear HENT: Yes: Atraumatic Neck: Yes: Supple Cardiovascular: Yes: S1, S2 Respiratory: Yes: CTA Bilaterally Gastrointestinal: Yes: Soft Renal/: Yes: WNL Extremities: Yes: Other (left arm graft) Integumentary: Yes: Tattoos Neurological: Yes: Oriented Psychiatric: Yes: Oriented Labs: CBC, BMP 03/19/18 05:10 03/19/18 05:10 Imaging - Results Chest X-ray: Report Reviewed Problem List - Problems (1) CKD (chronic kidney disease) Code(s): N18.9 - CHRONIC KIDNEY DISEASE, UNSPECIFIED Qualifiers: Chronic kidney disease stage: stage 4 (severe) Qualified Code(s): N18.4 - Chronic kidney disease, stage 4 (severe) Assessment/Plan Current Medications Generic Name Dose Route Start Last Admin Trade Name Freq PRN Reason Stop Dose Admin Docusate Sodium 100 mg 03/19/18 14:00 03/19/18 13:46 Colace - PO 100 mg TID BRET Administration Doxazosin Mesylate 8 mg 03/19/18 10:00 03/19/18 10:45 Cardura - PO Not Given BID BRET Hydralazine HCl 50 mg 03/18/18 23:45 03/19/18 10:44 Apresoline - PO 50 mg BID BRET Administration Labetalol HCl 300 mg 03/18/18 23:45 03/19/18 10:45 Normodyne - PO 300 mg BID BRET Administration Nifedipine 60 mg 03/19/18 00:45 03/19/18 10:45 Procardia Xl - PO 60 mg BID BRET Administration Polyethylene Glycol 17 gm 03/19/18 10:15 03/19/18 13:09 Miralax (For Daily Use) - PO 17 gm BID BRET Administration Potassium Chloride 40 meq 03/19/18 10:00 03/19/18 10:45 K-Dur - PO 40 meq DAILY BRET Administration Prochlorperazine Edisylate 10 mg 03/19/18 01:49 Compazine Injection - IVPB Q4H PRN NAUSEA AND/OR VOMITING Spironolactone 50 mg 03/18/18 23:45 03/19/18 10:44 Aldactone - PO 50 mg BID BRET Administration Microbiology Selected Entries 03/19/18 03/19/18 10:25 13:36 Blood Pressure 140/92 111/62 [Right Arm] Laboratory Tests 03/18/18 03/18/18 03/19/18 22:40 22:40 05:10 Hgb 7.5 L 7.7 L Potassium 3.2 L BUN Creatinine 6.0 H 03/19/18 05:10 Hgb Potassium 3.4 L BUN 67 H Creatinine 6.1 H Impression 1. Conn/hyperaldo 2. htn emergency 3. CKD 4. cough 5. HTN poorly controlled 6. non compliance 7. vomiting 8. hypokalemia 9. s/p av graft Plan - cont to monitor bp - vascular surgery to evaluate graft - follow cultures - ID eval - no indication for hd at the moment - discussed HD options - check hep b and c
--- NOTE | 2018-03-19 15:42 | CONSULT ---
- Consultation REQUESTING PROVIDER: CONSULT REQUEST: We have been asked to surgically evaluate this patient for ( LUE AVG site pain). PCP:Naty Alcocer NP HISTORY OF PRESENT ILLNESS: 37 y/o F w/ PMhx Conn syndrome, CKD, HTN, CHF, and non compliance admitted 03/18 with nausea and vomiting. Vascular consulted for evaluation of LUE due to pain at site of AVG placement. Pt states she had AVG [facility] at [facility] in the [place] on 03/14. Reports she has had pain since the surgery. Reports shooting pain from her shoulder to her elbow which has not worsened since the surgery, however she is concerned as it is not improving. Pt also endorses URI sxs. Denies fever, chills, sob, drainage from incision sites, h/o MRSA. PMHx: as above PSHx: CSECTION, LUE AVG (03/14/18) Home Medications Medication Instructions Recorded Atorvastatin Ca [Lipitor] 40 mg PO HS 30 Days #30 tablet 12/29/17 Clonidine Patch [Catapres Tts 0.3 mg TD WEEKLY 14 Days #2 patch 12/29/17 Patch -] Hydralazine HCl 50 mg PO BID 30 Days #60 tablet 12/29/17 Labetalol HCl [Normodyne -] 300 mg PO BID 30 Days #60 tablet 12/29/17 Nifedipine [Procardia Xl] 60 mg PO BID 30 Days #60 tab 12/29/17 Spironolactone [Aldactone -] 50 mg PO BID 30 Days #60 tab 12/29/17 Doxazosin Mesylate [Cardura -] 8 mg PO BID tablet 01/02/18 Potassium Chloride [K-Dur -] 40 meq PO DAILY tablet.er 01/02/18 Sennosides [Senna -] 1 tab PO HS PRN tablet 01/02/18 Allergies Allergy/AdvReac Type Severity Reaction Status Date / Time No Known Allergies Allergy Verified 03/18/18 21:32 REVIEW OF SYSTEMS: CONSTITUTIONAL: Absent: fever, chills, diaphoresis CARDIOVASCULAR: Absent: chest pain, syncope RESPIRATORY: +cough, negative shortness of breath PHYSICAL EXAM: GENERAL: Awake, alert, and fully oriented, in no acute distress. HEAD: Normal with no signs of trauma. LUNGS: No accessory muscle use. UPPER EXTREMITIES: LUE with AVG in place, +edema at site of AVG tunneling. + Erythema along AVG tunneling. Proximal and distal incisions c/d/i, no erythema or drainage appreciated (both incisions covered with 4x4 and tegaderm). +thrill and bruit appreciated. Vital Signs Temperature 98.2 F 03/19/18 14:56 Pulse Rate 64 03/19/18 14:56 Respiratory Rate 18 03/19/18 14:56 Blood Pressure 129/84 03/19/18 14:56 O2 Sat by Pulse Oximetry (%) 98 03/19/18 14:56 Lab Results WBC 6.9 K/mm3 (4.0-10.0) 03/19/18 05:10 RBC 2.62 M/mm3 (3.60-5.2) L 03/19/18 05:10 Hgb 7.7 GM/dL (10.7-15.3) L 03/19/18 05:10 Hct 23.8 % (32.4-45.2) L 03/19/18 05:10 MCV 91.1 fl (80-96) 03/19/18 05:10 MCHC 32.1 g/dl (32.0-36.0) 03/19/18 05:10 RDW 17.6 % (11.6-15.6) H 03/19/18 05:10 Plt Count 173 K/MM3 (134-434) 03/19/18 05:10 Sodium 137 mmol/L (136-145) 03/19/18 05:10 Potassium 3.4 mmol/L (3.5-5.1) L 03/19/18 05:10 Chloride 100 mmol/L (98-107) 03/19/18 05:10 Carbon Dioxide 24 mmol/L (21-32) 03/19/18 05:10 Anion Gap 12 MMOL/L (8-16) 03/19/18 05:10 BUN 67 mg/dL (7-18) H 03/19/18 05:10 Creatinine 6.1 mg/dL (0.55-1.3) H 03/19/18 05:10 Random Glucose 125 mg/dL (74-106) H 03/19/18 05:10 Calcium 9.1 mg/dL (8.5-10.1) 03/19/18 05:10 Blood Type AB POSITIVE 03/18/18 22:40 Antibody Screen Negative 03/18/18 22:40 INR 1.20 (0.83-1.09) H 03/18/18 22:40 A/P: 37 y/o F w/ PMhx Conn syndrome, CKD, HTN, CHF, and non compliance admitted 03/18 with nausea and vomiting. Vascular consulted for evaluation of LUE due to pain at site of AVG placement. Afebrile, VSS. No leukocytosis. On exam pt appears to have post surgical pain/ edema/trauma at site of tunneling of AVG. F/U blood cultures Follow labs Please call with any questions/concerns d/w attending Dr Wagoner
[2018-03-19] MEDS ORDERED: MORPHINE SULFATE 2 MG/ML VIAL IVPUSH PRN (21:34)
[2018-03-19] MEDS ORDERED: PT OWN MED DRAWER 7, Y5N ONE (21:44)
[2018-03-19] MEDS ORDERED: ACETAMINOPHEN 325 MG TABLET (FP) PO ONE (22:30)
[2018-03-19] MEDS ORDERED: oxyCODONE HCL 5 MG TABLET PO ONE (22:30)
[2018-03-20 02:14] LABS: HEP.C VIRUS AB <0.1 s/co ratio (0.0-0.9); HEPATITIS B CORE ANTIBODY,IGM Negative (Negative)
[2018-03-20] MEDS: DOCUSATE SODIUM 100 MG CAPSULE (FP) PO SCH ×2 (06:14→15:47)
[2018-03-20 07:41] LABS: BASO % 0.3 % (0-2.0); EOS % 3.8 % (0-4.5); HEMATOCRIT 21.4 % (32.4-45.2); LYMPH % 11.6 % (8-40); MCH 29.5 pg (25.7-33.7); MCHC 32.4 g/dl (32.0-36.0); MEAN PLT VOLUME 7.9 fl (7.5-11.1); MONO % 5.6 % (3.8-10.2); NEUT % 78.7 % (42.8-82.8); PLATELET COUNT 168 K/MM3 (134-434); RBC 2.36 M/mm3 (3.60-5.2); RDW 17.3 % (11.6-15.6); WHITE BLOOD COUNT 6.9 K/mm3 (4.0-10.0)
[2018-03-20 08:03] LABS: ALBUMIN 2.8 g/dl (3.4-5.0); ALK PHOS 86 U/L (45-117); ANION GAP 13 MMOL/L (8-16); BILIRUBIN,TOTAL 0.6 mg/dL (0.2-1); BLOOD UREA NITROGEN 70 mg/dL (7-18); CALCIUM 8.5 mg/dL (8.5-10.1); CHLORIDE 98 mmol/L (98-107); CO2 24 mmol/L (21-32); CREATININE 6.4 mg/dL (0.55-1.3); GLUCOSE,RANDOM 103 mg/dL (74-106); MAGNESIUM 2.3 mg/dL (1.8-2.4); POTASSIUM 3.5 mmol/L (3.5-5.1); SGOT/AST 122 U/L (15-37); SGPT/ALT 197 U/L (13-61); SODIUM 135 mmol/L (136-145); TOT PROT 5.7 g/dl (6.4-8.2)
[2018-03-20 08:25] LABS: HEMOGLOBIN 6.9 GM/dL (10.7-15.3)
--- NOTE | 2018-03-20 09:11 | DS ---
Physical Exam: SUBJECTIVE: Patient seen and examined; her presenting symptoms have resolved and she is feeling well. Requests DC home. No new issues overnight. Cultures negative, hepatitis pannel negative. BP is well-controlled. She knows to keep her followups and to continue to followup with her respective specialists. OBJECTIVE: Vital Signs Period Temp Pulse Resp BP Sys/Li Pulse Ox Last 24 Hr 98 F-98.6 F 63-70 16-20 111-140/62-95 98-100 PHYSICAL EXAM GENERAL: The patient is awake, alert, and fully oriented, in no acute distress. HEAD: Normal with no signs of trauma. EYES: PERRL, extraocular movements intact ENT: Ears normal, nares patent, NECK: Trachea midline, full range of motion, supple. LUNGS: Breath sounds equal, clear to auscultation bilaterally HEART: Regular rate and rhythm, S1, S2 without murmur, rub or gallop. ABDOMEN: Soft, nontender, nondistended, normoactive bowel sounds, EXTREMITIES: 2+ pulses, warm, well-perfused, no edema. NEUROLOGICAL: Cranial nerves II through XII grossly intact. PSYCH: Normal mood, normal affect. SKIN: Warm, dry, normal turgor, no rashes or lesions noted. Palpable thrill over AVF LABS Laboratory Results - last 24 hr 03/19/18 03/19/18 03/19/18 05:10 05:10 12:50 WBC RBC Hgb Hct MCV MCH MCHC RDW Plt Count MPV Absolute Neuts (auto) Neutrophils % Lymphocytes % Monocytes % Eosinophils % Basophils % Nucleated RBC % Sodium Potassium Chloride Carbon Dioxide Anion Gap BUN Creatinine Creat Clearance w eGFR Random Glucose Calcium Magnesium Total Bilirubin AST ALT Alkaline Phosphatase Troponin I 0.14 H Total Protein Albumin Hepatitis A IgM Ab Negative Hep Bs Antigen Negative Hep B Core IgM Ab Negative Negative Hep C Ab Diagnostic <0.1 Hepatitis C Antibody <0.1 03/20/18 03/20/18 07:05 07:05 WBC 6.9 RBC 2.36 L Hgb 6.9 L* Hct 21.4 L MCV 91.0 MCH 29.5 MCHC 32.4 RDW 17.3 H Plt Count 168 MPV 7.9 Absolute Neuts (auto) 5.4 Neutrophils % 78.7 Lymphocytes % 11.6 Monocytes % 5.6 Eosinophils % 3.8 Basophils % 0.3 Nucleated RBC % 0 Sodium 135 L Potassium 3.5 Chloride 98 Carbon Dioxide 24 Anion Gap 13 BUN 70 H Creatinine 6.4 H Creat Clearance w eGFR 7.25 Random Glucose 103 Calcium 8.5 Magnesium 2.3 Total Bilirubin 0.6 AST 122 H ALT 197 H Alkaline Phosphatase 86 Troponin I Total Protein 5.7 L Albumin 2.8 L Hepatitis A IgM Ab Hep Bs Antigen Hep B Core IgM Ab Hep C Ab Diagnostic Hepatitis C Antibody HOSPITAL COURSE: Date of Admission:03/19/18 Date of Discharge: 03/20/18 1) 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 We will continue her home medications including Labetalol, Clonidine patch, Hydralazine, Nifedipine, Spironolactone, doxazosin, and Lasix. If this gets her to goal this would be acceptable and will monitor on tele; if not go ahead and increase likely hydralazine with consideration of CV consultation. She admits to not taking her meds. Evidence of end organ damage with the slight troponin leak. This is very similar to previous presentations. When she misses her medications she gets hypertensive easily with rapid fluctuations. She should continue to see [facility] [place] for her abdominal side effects with these medications. Patient was restarted on her home medications with excellent BP control; trending in the 130s with normal HR the day of DC. She understands complaince with her meds and plans to followup with her final inspector balance wheel, HTN specialist, primary care. She will monitor her pressures and continue to followup with her GI specialist who she sees for medication intolerance as needed. 2) Chest Pain with elevated troponin -Day of admit: Atypical in presentation, similar to her past presentations. She tells me that she gets similar pain when she goes into these types of HTn emergencies and review of her chart agrees with her self-assessment. Will control BP, monitor on tele, and trend troponins (commented on below). Consider ASA for primary prevention once ascertained it is OK with the vascular surgeon who recently put her fistula in. Can consider CV consultation but overall this is likely 2/2 HTN Troponins remained flat throughout her hospitalization and this presentation was not in line with ACS diagnosis. Followup outpatient. Did see CV who agrees this is noncardiac. 3) Transamininitis -Broad ddx; never has been this high before. RUQ u/s is pending. Bili and Alk phos normal. FU u/s results and monitor for improvement with trending CMP. No definitive cause discerned. She was seen to have an enlarged liver with small cysts. She should be followed up with repeat imaging and CMP as an outpatient with her PCP and consider referral to GI. 4) Hypokalemia with H/O Hyperaldosteronism -Continue her home PO repletion; check BMP this week to ensure K is wnl. She has required very high amount of replacement in the past. 5) Mixed CHF -Known; 2018 echo reviewed. Euvolemic today no SOB or O2 requirements. Continue home medications as prescribed and followup. Remained euvolemic through her hospitalization without any issues. 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 BP control and close OP followup. 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 She will be starting HD with mature fistula soon. No urgent indication seen for HD. Will observe. In the meantime we will avoid any nephrotoxic agents, etc. As she is already being prepped for soon HD will not empirically hydrate as the Cr is known to be this high and we don't want to fluid overload her. No urgent HD indication; followup with nephrology and PCP and obtain BMP this week 10) Fistula Pain -No clots in prelim US read; PRN tx and monitor exam. Negative US, negative cultures. PRN APAP and followup. Tenderness commonly seen postop 11) Anemia -Continues to trend at baseline from prior admits; consider procrit but nonemergently Minutes to complete discharge: 40 Discharge Summary Reason For Visit: HYPERTENSIVE EMERGENCY/ELEVATED TROPONIN LEVEL Current Active Problems Abnormal LFTs (Acute) Acute on chronic renal failure (Acute) Elevated troponin (Acute) Hypokalemia (Acute) Nausea & vomiting (Acute) S/P arteriovenous (AV) graft placement (Acute) Aldosterone excess (Conn syndrome) (Chronic) CKD (chronic kidney disease) (Chronic) Condition: Good - Instructions Diet, Activity, Other Instructions: Resume prehospital diet Resume previous level of activity Keep all followup appointments Wound care per vascular surgery Followups: -[facility] within 1 week -[facility] within 1 week -Cardiology next scheduled appointment -PCP 3-5 days Labs: Obtain CBC, BMP in 3-5 days Take all medications as directed on medication reconciliation Referrals: Stoney Sunshine MD [Primary Care Provider] - (3-5 days) Hypertension Specialist at [facility] [Other] - 1 Week [facility], [facility] [Other] - 1 Week [place] [facility], [facility] [Other] - 1 Week Disposition: HOME - Home Medications Comprehensive Discharge Medication List: Ambulatory Orders Atorvastatin Ca [Lipitor] 40 mg PO HS 30 Days #30 tablet 12/29/17 Clonidine Patch [Catapres Tts Patch -] 0.3 mg TD WEEKLY 14 Days #2 patch Hydralazine HCl 50 mg PO BID 30 Days #60 tablet 12/29/17 Labetalol HCl [Normodyne -] 300 mg PO BID 30 Days #60 tablet 12/29/17 Spironolactone [Aldactone -] 50 mg PO BID 30 Days #60 tab 12/29/17 Doxazosin Mesylate [Cardura -] 8 mg PO BID tablet 01/02/18 Sennosides [Senna -] 1 tab PO HS PRN tablet 01/02/18 Clonidine Patch [Catapres Tts Patch -] 0.3 mg TD Q7D@1000 patch.tdwk 03/20/18 Docusate Sodium [Colace -] 100 mg PO TID capsule 03/20/18 Nifedipine ER [Procardia XL -] 60 mg PO BID tab.er.24 03/20/18 Polyethylene Glycol 3350 [Miralax 119 gm Btl -] 17 gm PO BID bottle 03/20/18 Potassium Chloride [K-Dur -] 40 meq PO DAILY tablet.er 03/20/18 This patient is new to me today: No Emergency Visit: No Critical Care patient: No - Discharge Referral Referred to [facility] No
[2018-03-20 09:12] VITALS: BP 122/85; PULSE 72; TEMP 98
[2018-03-20] MEDS: NIFEdipine E.R 60 MG TABLET (UD) PO SCH (09:14)
[2018-03-20] MEDS: LABETALOL HCL 200 MG TABLET (FP) PO SCH (09:14)
[2018-03-20] MEDS: POTASSIUM CHLORIDE TABS 20 MEQ TABLET.ER (FP) PO SCH (09:15)
[2018-03-20] MEDS: SPIRONOLACTONE 25 MG TABLET (FP) PO SCH (09:16)
[2018-03-20] MEDS: hydrALAZINE HCL 50 MG TABLET (FP) PO SCH (09:18)
[2018-03-20] MEDS ORDERED: HEPARIN NA (PORCINE) 5,000 UNITS/ML 1ML VIAL SQ SCH (10:00)
--- NOTE | 2018-03-20 11:24 | PN ---
Progress Note (short form) - Note Progress Note: Chief Complaint: cp History of Present Illness: cp resolved. no palps, dizzy, lightheadedness, dyspnea Current Medications Clonidine HCl (Catapres Tts Patch -) 0.3 mg TD Q7D@1000 [facility] Last Admin: 03/19/18 18:24 Dose: 0.3 mg Docusate Sodium (Colace -) 100 mg PO TID [facility] Last Admin: 03/20/18 06:14 Dose: 100 mg Doxazosin Mesylate (Cardura -) 8 mg PO BID [facility] Last Admin: 03/19/18 21:56 Dose: Not Given Heparin Sodium (Porcine) (Heparin -) 5,000 unit SQ BID [facility] Hydralazine HCl (Apresoline -) 50 mg PO BID [facility] Last Admin: 03/20/18 09:18 Dose: 50 mg Labetalol HCl (Normodyne -) 300 mg PO BID [facility] Last Admin: 03/20/18 09:14 Dose: 300 mg Morphine Sulfate (Morphine Sulfate) 2 mg IVPUSH Q4H PRN PRN Reason: PAIN LEVEL 6-10 Nifedipine (Procardia Xl -) 60 mg PO BID [facility] Last Admin: 03/20/18 09:14 Dose: 60 mg Polyethylene Glycol (Miralax (For Daily Use) -) 17 gm PO BID [facility] Last Admin: 03/19/18 21:57 Dose: 17 gm Potassium Chloride (K-Dur -) 40 meq PO DAILY [facility] Last Admin: 03/20/18 09:15 Dose: 40 meq Prochlorperazine Edisylate (Compazine Injection -) 10 mg IVPB Q4H PRN PRN Reason: NAUSEA AND/OR VOMITING Spironolactone (Aldactone -) 50 mg PO BID [facility] Last Admin: 03/20/18 09:16 Dose: 50 mg Vital Signs Period Temp Pulse Resp BP Sys/Li Pulse Ox Last 24 Hr 98 F-98.6 F 63-72 18-20 111-137/62-95 98-100 Constitutional: Yes: Well Nourished, No Distress Eyes: No: Sclera Icterus HENT: No: Nasal Congestion Neck: No: Decreased ROM Respiratory: Yes: CTA Bilaterally. No: Accessory Muscle Use Gastrointestinal: Yes: Normal Bowel Sounds. No: Distention, Hepatomegaly, Palpable Mass, Tenderness Cardiovascular: Yes: Regular Rate and Rhythm JVD: No Carotid Bruit: No PMI: Non-Displaced Heart Sounds: Yes: S1, S2. No: Gallop Murmur: No: Systolic Murmur, Diastolic Murmur Musculoskeletal: Yes: Other (No kyphosis) Extremities: No: Cool, Cyanosis Edema: No Peripheral Pulses: 2+ Left Carotid, 2+ Right Carotid, 2+ Left Doralis Pedis, 2+ Right Dorsalis Pedis Integumentary: No: Jaundice Neurological: Yes: Alert, Oriented (x3), Other (sleepy, easily rousable). No: Seizure Psychiatric: No: Agitated Assessment/Plan ecg 03/2018 sinus, LVH with repol changes, prolonged QTc 503, CXR: congestive changes, CM, unfolded aorta no change vs prior echo 06/2017: mild lve. 1+ conc lvh. mild dec lv sys fn. mild-mod lat wall HK. mod inferolateral wall HK. 1+ lae. 1+ ar, mod mr, nl aortic root size. small pericardial effusion (images reviewed by dr taylor: no regionality to LV hypokinesis--there is global mild-moderate LV hypokinesis, EF 40-45%. moderate conc LVH. moderate MR) echo 03/2018 nl LV size/function EF 55-60%, mod conc LVH, restrictive physiology , E/E' 29 c/w elevated filling pressure, LA mildly dilated, RA mod dilated, mod MR, mod to sev TR with eccentric jet, PASP at least 50 mmHg, mild to mod AR, mild OK, sm pericardial effusion <[address] 03/2017: Ascending aorta 4.1 cm. PA dilation (3.6 cm). tele: sinus 60s hypertensive urgency, known h/o secondary HTN/hyperaldosteronism, hypertensive heart dz/renal dz: - HTN urgency admit here previously triggered by non-adherence to po meds due to nausea and vomiting - multiple admits for HTN urgency in past few months (responsive to nicardipine drip each time), last was 12/2017 - d/c meds at that time Labetalol 300 mg PO BID, Clonidine Patch 0.3 weekly, Hydralazine HCl 50 mg PO BID, Nifedipine XL 60 mg PO BID, Spironolactone 50 mg PO BID, doxazosin 8 mg BID - restarted on home meds, BP remains stable, continue - follows with HTN specialist (Dr. Dunham) at [place], as well as GI there to optimize GI sx's that interfere with med adherence chest pain, elevated troponin: - prior presentations of htn urgency accompanied by CP as well. - this is likely sx of severely elevated BP, as in the past it was - appears hemodynamically stable, non-toxic, and cp resolved promptly with tx of BP--clinically not suspicious for acute aorta pathology or ACS - CXR no widened mediastinum (image reviewed by me), cardiomediastinal silhouette no signif change vs prior - troponins flat (0.17->0.18->0.14), non-diagnostic range, stable vs mult prior admits. this is due to elevated filling pressures and LVH. - ecg unchanged vs priors, sec to LVH repolarization abnormalities - CP resolved, stable from cardiac perspective hypokalemia-->causing prolonged QT: - sec to hyperaldosteronism. - has required up to 140 meq qd K repletion in past - QT remains prolonged here--replete K, observe QT trend chronic syst/diast(mixed) CHF: - hypertensive cardiomyopathy - restrictive physiology on echo - appears euvolemic aorta aneurysm: -4.1 cm ascending aorta on 03/2017 CT scan -sec to uncontrolled HTN -bp control, including BB as doing -routine outpt aorta surveillance CKD: -creat running around high 4's-low 5's baseline here -stable here - renal following, AV fistula placed with plan for HD
--- NOTE | 2018-03-20 14:09 | PN ---
Progress Note, Physician History of Present Illness: Pt seen and examined at bedside. She is awake and alert. She denies shortness of breath. She was found to have worsening anemia and was written for a prbc transfusion. Pt is being abrasive to staff. - Current Medication List Current Medications: Active Medications Clonidine HCl (Catapres Tts Patch -) 0.3 mg TD Q7D@1000 [facility] Last Admin: 03/19/18 18:24 Dose: 0.3 mg Docusate Sodium (Colace -) 100 mg PO TID [facility] Last Admin: 03/20/18 06:14 Dose: 100 mg Doxazosin Mesylate (Cardura -) 8 mg PO BID [facility] Last Admin: 03/19/18 21:56 Dose: Not Given Heparin Sodium (Porcine) (Heparin -) 5,000 unit SQ BID [facility] Hydralazine HCl (Apresoline -) 50 mg PO BID [facility] Last Admin: 03/20/18 09:18 Dose: 50 mg Labetalol HCl (Normodyne -) 300 mg PO BID [facility] Last Admin: 03/20/18 09:14 Dose: 300 mg Morphine Sulfate (Morphine Sulfate) 2 mg IVPUSH Q4H PRN PRN Reason: PAIN LEVEL 6-10 Nifedipine (Procardia Xl -) 60 mg PO BID [facility] Last Admin: 03/20/18 09:14 Dose: 60 mg Polyethylene Glycol (Miralax (For Daily Use) -) 17 gm PO BID [facility] Last Admin: 03/19/18 21:57 Dose: 17 gm Potassium Chloride (K-Dur -) 40 meq PO DAILY [facility] Last Admin: 03/20/18 09:15 Dose: 40 meq Prochlorperazine Edisylate (Compazine Injection -) 10 mg IVPB Q4H PRN PRN Reason: NAUSEA AND/OR VOMITING Spironolactone (Aldactone -) 50 mg PO BID [facility] Last Admin: 03/20/18 09:16 Dose: 50 mg - Objective Vital Signs: Vital Signs Temperature 98 F 03/20/18 09:11 Pulse Rate 72 03/20/18 09:11 Respiratory Rate 20 03/20/18 09:11 Blood Pressure 122/85 03/20/18 09:11 O2 Sat by Pulse Oximetry (%) 100 03/20/18 08:00 Constitutional: Yes: No Distress Eyes: Yes: Conjunctiva Clear HENT: Yes: Atraumatic Cardiovascular: Yes: S1, S2 Respiratory: Yes: CTA Bilaterally Gastrointestinal: Yes: Soft Genitourinary: Yes: WNL Musculoskeletal: Yes: WNL Extremities: Yes: Other (graft with thrill and bruit) Edema: Yes Edema: LLE: Trace, RLE: Trace Neurological: Yes: Oriented Psychiatric: Yes: Agitated Labs: CBC, BMP 03/20/18 07:05 INR, PTT INR 1.20 (0.83-1.09) H 03/18/18 22:40 Problem List - Problems (1) CKD (chronic kidney disease) Code(s): N18.9 - CHRONIC KIDNEY DISEASE, UNSPECIFIED Qualifiers: Chronic kidney disease stage: stage 4 (severe) Qualified Code(s): N18.4 - Chronic kidney disease, stage 4 (severe) Assessment/Plan Current Medications Generic Name Dose Route Start Last Admin Trade Name Freq PRN Reason Stop Dose Admin Clonidine HCl 0.3 mg 03/19/18 16:00 03/19/18 18:24 Catapres Tts Patch - TD 0.3 mg Q7D@1000 [facility] Administration Docusate Sodium 100 mg 03/19/18 14:00 03/20/18 06:14 Colace - PO 100 mg TID [facility] Administration Doxazosin Mesylate 8 mg 03/19/18 10:00 03/19/18 21:56 Cardura - PO Not Given BID [facility] Heparin Sodium (Porcine) 5,000 unit 03/20/18 10:00 Heparin - SQ BID [facility] Hydralazine HCl 50 mg 03/18/18 23:45 03/20/18 09:18 Apresoline - PO 50 mg BID [facility] Administration Labetalol HCl 300 mg 03/18/18 23:45 03/20/18 09:14 Normodyne - PO 300 mg BID [facility] Administration Morphine Sulfate 2 mg 03/19/18 21:34 Morphine Sulfate IVPUSH Q4H PRN PAIN LEVEL 6-10 Nifedipine 60 mg 03/19/18 00:45 03/20/18 09:14 Procardia Xl - PO 60 mg BID [facility] Administration Polyethylene Glycol 17 gm 03/19/18 10:15 03/19/18 21:57 Miralax (For Daily Use) - PO 17 gm BID [facility] Administration Potassium Chloride 40 meq 03/19/18 10:00 12/04/18 09:15 K-Dur - PO 40 meq DAILY [facility] Administration Prochlorperazine Edisylate 10 mg 03/19/18 01:49 Compazine Injection - IVPB Q4H PRN NAUSEA AND/OR VOMITING Spironolactone 50 mg 03/18/18 23:45 03/20/18 09:16 Aldactone - PO 50 mg BID [facility] Administration Selected Entries 03/20/18 03/20/18 03/20/18 02:05 06:00 09:11 Blood Pressure 135/83 134/95 122/85 Laboratory Tests 03/20/18 07:05 Ferritin 105.5 Impression 1. Conn/hyperaldo 2. htn emergency 3. CKD 4. cough 5. HTN poorly controlled 6. non compliance 7. vomiting 8. hypokalemia 9. s/p av graft Plan - bp is stable - pt presents with htn likely secondary to non compliance - prbc transfusion - pt refused aranesp/procrit - discussed HD options, she will need close outpt follow up after discharge - check hep b and c
[2018-03-20 14:10] LABS: BASO % 0.8 % (0-2.0); EOS % 1.5 % (0-4.5); HEMATOCRIT 37.7 % (32.4-45.2); HEMOGLOBIN 13.2 GM/dL (10.7-15.3); LYMPH % 40.2 % (8-40); MCH 32.2 pg (25.7-33.7); MEAN CELL VOLUME 91.9 fl (80-96); MEAN PLT VOLUME 7.7 fl (7.5-11.1); MONO % 6.2 % (3.8-10.2); NEUT % 51.3 % (42.8-82.8); PLATELET COUNT 371 K/MM3 (134-434); RDW 17.4 % (11.6-15.6); WHITE BLOOD COUNT 4.9 K/mm3 (4.0-10.0)
[2018-03-20] MEDS: DOXAZOSIN MESYLATE 4 MG TABLET PO SCH (15:46)
[2018-03-20] MEDS: POLYETHYLENE GLYCOL 3350 119 GM BTL PO SCH (15:47)
[2018-03-22 00:06] LABS: HBSAG SCREEN Negative (Negative); HEP A AB, IGM Negative (Negative); HEP B CORE AB, TOT Positive (Negative)
== END 2018-03-20 15:38 | disposition home or self-care (01) ==
LOC: JER 21:28 → INTOOBSV 03-19 00:47 → JERBED 03-19 00:47 → UNDOADMOB 03-19 00:47 → JERBED 03-19 01:43 → J4W 03-19 14:41
PROVIDERS: ADMIT Internal Medicine; ATTEND Internal Medicine
DX: I16.1 Hypertensive emergency (principal); I15.2 Hypertension secondary to endocrine disorders; E26.01 Conn's syndrome; I13.2 Hypertensive heart and chronic kidney disease with heart failure and with stage 5 chronic kidney disease, or end stage renal disease; N18.5 Chronic kidney disease, stage 5; I50.33 Acute on chronic diastolic (congestive) heart failure; E87.6 Hypokalemia; R74.0 Nonspecific elevation of levels of transaminase and lactic acid dehydrogenase [LDH]; D64.9 Anemia, unspecified; T82.848A Pain due to vascular prosthetic devices, implants and grafts, initial encounter; I77.0 Arteriovenous fistula, acquired; R94.5 Abnormal results of liver function studies; R74.8 Abnormal levels of other serum enzymes; I71.4 Abdominal aortic aneurysm, without rupture; D35.00 Benign neoplasm of unspecified adrenal gland
CPT/HCPCS: 36415; 36430; 71045-TC-FY; 76700-TC; 76882-TC-RT-FY; 80053; 80074; 81003; 81015; 82550; 82728; 83540; 83605; 83735; 84100; 84484; 84703; 85025; 85610; 86704; 86705; 86706; 86708; 86803; 86850; 86900; 86901; 86922; 87040; 87340; 87804; 93005; 93010; 93306-TC; 99285-25; G0378; J0131; P9038; P9058